=== PATIENT | male | born 1945 | race Caucasian/White ===

== ENCOUNTER → 2019-12-15 14:00 | Outpatient (CLI) | payer MEDICARE, MEDICAID, SELFPAY ==
[2019-12-15 13:57] VITALS: BMI 50.8
--- NOTE | 2019-12-15 14:00 | LES_PTH ---
PATIENT: BLANCA SHARMA I LOC: [facility] U#:[id number] AGE/SX: 80/M ROOM: RE12/15/[address]: Dr. Obdulio Mancuso MD : 1945 BED: DIS: SPEC #: [id number] RECD: 12/15/19 15:00 STATUS: EDELMIRARose ASIF #: [id number] ELIANE: 12/15/19 14:[address]: Obdulio Mancuso DEPT: SURGICAL PATHOLOGY RECD BY: Brynn Starr Tissues: Skin of inguinal region Procedures: Surgery Specimen Level IV HEADER OPERATION: Excision skin lesion left groin PRE-OP DIAGNOSIS: Fibroepithelial polyp TISSUE SUBMITTED: Skin lesion/tag left groin MICROSCOPIC DIAGNOSIS Skin lesion/tag left groin, excision: Fibroepithelial polyp (skin tag). SJ:harper 12/17/19 COMMENT Case has been reviewed in consultation with Dr. Seaman who concurs with the above diagnosis. IDC:AM MICROSCOPIC DESCRIPTION Slides are reviewed. GROSS DESCRIPTION Received is one container labeled with the patient's name and not further designated. The specimen consists of a pedunculated polypoid piece of rodriguez-white skin measuring 9.5 x 8 x 6 cm. The pedicle measures 1 cm in length and 1.5 cm in diameter. A focal area of ulceration is noted. Sections reveal edematous cut surfaces with focal yellowish area. Areas of hemorrhage, necrosis or cystic degeneration are not identified. Voice Systems Engineer sections are submitted in ten cassettes as follows: 1 - base of the lesion with inked margin, 2-6 - more sections. Sections are submitted after additional fixation. The inked margin is submitted in entirety. / SJ:rg 12/15/19 TC:5 CPT: 72317
== END ==
PROVIDERS: Visit Provider Surgery
DX: L91.8 Other hypertrophic disorders of the skin (principal)
CPT/HCPCS: 88305

== ENCOUNTER 2019-12-25 10:30 | Outpatient (RCR) | payer MEDICARE, MEDICAID, SELFPAY ==
[2019-12-15 13:57] VITALS: BMI 50.8
[2019-12-18 09:42] VITALS: BP 113/57; PULSE 79; RESP 24; TEMP 36.2; BMI 46.3
--- NOTE | 2019-12-18 12:21 | PCM.WC.HP ---
(1) Ulcer of right lower extremity with fat layer exposed Status: Acute Current Visit: Yes Code(s): L97.912 - Non-pressure chronic ulcer of unspecified part of right lower leg with fat layer exposed (2) Ulcer of left lower extremity with fat layer exposed Status: Acute Current Visit: Yes Code(s): L97.922 - Non-pressure chronic ulcer of unspecified part of left lower leg with fat layer exposed (3) Venous (peripheral) insufficiency Status: Acute Current Visit: Yes Code(s): I87.2 - Venous insufficiency (chronic) (peripheral) (4) Lymphedema Status: Acute Current Visit: Yes Code(s): I89.0 - Lymphedema, not elsewhere classified (5) Lower extremity edema Status: Acute Current Visit: Yes Code(s): R60.0 - Localized edema (6) Cellulitis of lower leg Status: Acute Current Visit: Yes Code(s): L03.119 - Cellulitis of unspecified part of limb (7) Obesity Status: Chronic Current Visit: No Code(s): E66.9 - Obesity, unspecified History of Present Illness Date of Service: 12/18/19 Chief Complaint: Superficial ulcers to bilateral lower legs History of Wound: This 74-year-old male with multiple comorbidities presents to the wound healing center today for superficial bilateral lower leg ulcers. Patient states he was seen at the wound healing center a few years ago for the exact same thing. He relates that he was a self-referral and called in for an appointment before being seen by anybody else for these issues. He has noticed some. He said he has compression stockings that he wears usually at home, but has recently been unable to wear them. He denies any feelings currently of nausea, vomiting, fever, chills. He also relates that he feels each lower leg has continued to look better since the day he originally made his appointment. Past Medical History Past Medical History: Chronic Problems (Last Reviewed 12/15/19 @ 13:54 by Dana Castillo) Pulmonary embolism (Chronic) Pulmonary artery hypertension (Chronic) Venous stasis dermatitis (Chronic) Obesity (Chronic) HTN (hypertension) (Chronic) CKD (chronic kidney disease) stage 3, GFR 30-59 ml/min (Chronic) RAAD (obstructive sleep apnea) (Chronic) Cor pulmonale, chronic (Chronic) Gout (Chronic) Surgical History: no surgical history Allergies/Adverse Reactions: Allergies No Known Allergies Allergy (Verified 12/15/19 13:55) Home Medications: Ambulatory Orders Medication Instructions Recorded Allopurinol 300 mg PO BID 09/11/14 Furosemide 40 mg PO BID 09/11/14 Lisinopril 20 mg PO DAILY 09/11/14 Warfarin [Coumadin] 7 mg PO DAILY 06/23/16 - Family History Paternal Stroke Maternal Heart Disease, - - The patient's mother had a history of hypertension. She in her 70s. The patient's father at age of 93, with a history of dementia. Offspring - - Recent pulmonary embolism Smoking Status: Never smoker Review of Systems Constitutional: Denies: Chills, Fever, Weight Change Cardiovascular: Denies: Chest Pain, Palpitations Respiratory: Denies: Cough, Shortness of Breath Gastrointestinal: Denies: Diarrhea, Nausea, Vomiting Skin: Reports: - - Bilateral lower leg ulcers - Physical Exam Vital Signs Temp Pulse Resp BP 97.1 F L 79 24 H 113/57 L 12/18/19 09:42 12/18/19 09:42 12/18/19 09:42 12/18/19 09:42 General: Alert, Oriented x3, Cooperative, No apparent distress Extremities: No cyanosis, Capillary Refill Less than 3 Seconds - To distal digits of each foot, No Calf Tenderness - Negative Wilfred and Rajput signs bilateral, Diminished Peripheral Pulses - DP pulses faintly palpable and PT pulses not easily palpable due to significant bilateral lower extremity edema., Edema - Significant bilateral lower extremity edema Skin: Ulcer/ Wound - Superficial ulcers with fat layer exposed to bilateral lower legs. Base of the ulcer sites noted to be a mixture of adherent slough, fibrin, biofilm, as well as some slight hyperkeratotic tissue. There is no probing to bone, no tracking, no undermining. No purulence, no malodor. There is some slight erythema to each lower leg. No significant increase in warmth. Some serous drainage appreciated that is moderate to heavy. Wound Measurements and Assessment WC - Nurse 1 - General Ulcer Measurement Start: 12/18/19 09:38 Freq: Status: Active Protocol: Activity Type Activity Date Activity User E-Sign Co-Sign Detail Recorded Client Recorded Date Recorded By Document 12/18/19 09:42 DL [id number] 12/18/19 10:03 DL 12/18/19 09:42 Wound Center Nurse 1 [Ulcer Assessment] #4 RLE med Cluster -Combined with other wound No -Current Size (cm) - Length 10.0 -Current Size (cm) - Width 11.0 -Current Size (cm) - Depth 0.1 -Total Square Cm 110.00 -Date of Last Picture (Recall this 12/18/19 field) -Photo Taken Yes -Epithelialization None Present -Tunneling No -Undermining/Tunneling No -Circular Undermining No -Classification - Thickness Full Thickness without Exposed Support Structure -Exudate Amt Large -Exudate Type Sanguineous -Wound Margin Indistinct, Non -Visible -Granulation Amt None Present (0 %) -Granulation Quality N/A,Red -Slough/Fibrin No -Necrosis Amt None Present (0 %) -Structure Exposed N/A -Texture (Uyen-wound Skin Appearance) Assessed, Localized Edema ,Scarring -Moisture (Uyen-wound Skin Appearance Weeping ) -Color (Uyen-wound Skin Appearance) Erythema, Hemosiderin Staining -Temperature (Uyen-wound Skin No Abnormality Appearance) (Pt Warm) -Tenderness on Palpation (Uyen-wound No Skin Appearance) -Ulcer Cleansing Rinsed/ Irrigated with Saline -Foul Odor after Cleansing No -Anesthetic Used 4% Lidocaine Solution #3 LLE lat -Combined with other wound No -Current Size (cm) - Length 11.0 -Current Size (cm) - Width 9.0 -Current Size (cm) - Depth 0.1 -Total Square Cm 99.00 -Date of Last Picture (Recall this 12/18/19 field) -Photo Taken Yes -Epithelialization None Present -Tunneling No -Undermining/Tunneling No -Circular Undermining No -Classification - Thickness Full Thickness without Exposed Support Structure -Exudate Amt Large -Exudate Type Sanguineous -Wound Margin Indistinct, Non -Visible -Granulation Amt None Present (0 %) -Granulation Quality N/A -Slough/Fibrin Yes -Necrosis Amt Large (67-100%) -Necrotic Tissue Type Adherent Slough -Structure Exposed N/A -Texture (Uyen-wound Skin Appearance) Assessed, Localized Edema ,Scarring -Moisture (Uyen-wound Skin Appearance Assessed, ) Weeping -Color (Uyen-wound Skin Appearance) Assessed, Erythema, Hemosiderin Staining -Temperature (Uyen-wound Skin No Abnormality Appearance) (Pt Warm) -Tenderness on Palpation (Uyen-wound No Skin Appearance) -Ulcer Cleansing Rinsed/ Irrigated with Saline -Foul Odor after Cleansing No -Anesthetic Used 4% Lidocaine Solution WC - Nurse 2 - General Ulcer CM Notes Start: 12/18/19 09:38 Freq: Status: Active Protocol: Activity Type Activity Date Activity User E-Sign Co-Sign Detail Recorded Client Recorded Date Recorded By Document 12/18/19 10:40 DV [id number] 12/18/19 10:46 DV 12/18/19 10:40 Wound Center Nurse 2 [Procedure/Treatment] #4 RLE med Cluster -Time 10:40 -Correct Patient Yes -Correct Side, Site, Position Yes -Correct Procedure Yes -Procedure Performed Yes -Type of Procedure Debridement -Clinical Debridement Subcutaneous -Post Debridement Size (cm) - Length 10.1 -Post Debridement Size (cm) - Width 11.1 -Post Debridement Size (cm) - Depth 0.1 -Total Square Cm 112.11 -Wound/Ulcer Outcome Not Healed -Ulcer Cleansing Rinsed/ Irrigated with Saline -Foul Odor after Cleansing No -Bioengineered Tissue No -Bleeding Controlled with Pressure -Offloading No -Treatment Response Procedure Tolerated Well #3 LLE lat -Time 10:41 -Correct Patient Yes -Correct Side, Site, Position Yes -Correct Procedure Yes -Procedure Performed Yes -Type of Procedure Debridement -Clinical Debridement Subcutaneous -Post Debridement Size (cm) - Length 11.1 -Post Debridement Size (cm) - Width 9.1 -Post Debridement Size (cm) - Depth 0.1 -Total Square Cm 101.01 -Wound/Ulcer Outcome Not Healed -Ulcer Cleansing Rinsed/ Irrigated with Saline -Foul Odor after Cleansing No -Bioengineered Tissue No -Bleeding Controlled with Pressure -Offloading No -Treatment Response Procedure Tolerated Well [See Physician Procedure note for Specifics] Pain Scale: 0-10 Numeric [Pain] -Is Patient Pain Free? Yes Musculoskeletal: Tenderness - Very minor tenderness with manipulation of ulcer sites Neurological: Sensory exam intact to light touch and pain Psych/Mental Status: Normal Affect, Appropriate Debridement Note Post-Debridement Measurements/Treatment SIMON - Nurse 2 - General Ulcer CM Notes Start: 12/18/19 09:38 Freq: Status: Active Protocol: Activity Type Activity Date Activity User E-Sign Co-Sign Detail Recorded Client Recorded Date Recorded By Document 12/18/19 10:40 DV [id number] 12/18/19 10:46 DV 12/18/19 10:40 Wound Center Nurse 2 #4 RLE med Cluster -Time 10:40 -Correct Patient Yes -Correct Side, Site, Position Yes -Correct Procedure Yes -Procedure Performed Yes -Type of Procedure Debridement -Clinical Debridement Subcutaneous -Post Debridement Size (cm) - Length 10.1 -Post Debridement Size (cm) - Width 11.1 -Post Debridement Size (cm) - Depth 0.1 -Total Square Cm 112.11 -Wound/Ulcer Outcome Not Healed -Ulcer Cleansing Rinsed/ Irrigated with Saline -Foul Odor after Cleansing No -Bioengineered Tissue No -Bleeding Controlled with Pressure -Offloading No -Treatment Response Procedure Tolerated Well #3 LLE lat -Time 10:41 -Correct Patient Yes -Correct Side, Site, Position Yes -Correct Procedure Yes -Procedure Performed Yes -Type of Procedure Debridement -Clinical Debridement Subcutaneous -Post Debridement Size (cm) - Length 11.1 -Post Debridement Size (cm) - Width 9.1 -Post Debridement Size (cm) - Depth 0.1 -Total Square Cm 101.01 -Wound/Ulcer Outcome Not Healed -Ulcer Cleansing Rinsed/ Irrigated with Saline -Foul Odor after Cleansing No -Bioengineered Tissue No -Bleeding Controlled with Pressure -Offloading No -Treatment Response Procedure Tolerated Well Pain Scale: 0-10 Numeric Is Patient Pain Free? Yes Wound debrided: Right lower leg Laterality: Right Type of Debridement: Selective debridement Anesthesia Used: 4% Lidocaine Solution Depth: in the subcutaneous layer Percentage of wound debrided: 100 Instrument Used: 3mm curette Tissue Removed: Adherent slough, fibrin, biofilm Severity: Fat Layer Exposed Amount of bleeding with debridement: Mild Bleeding Controlled with: Pressure Patient tolerated procedure well - Additional Wound Wound debrided: Left lower leg Laterality: Left Type of Debridement: Selective debridement Anesthesia Used: 4% Lidocaine Solution Depth: in the subcutaneous layer Percentage of wound debrided: 100 Instrument Used: 3mm curette Tissue Removed: Adherent slough, fibrin, biofilm Severity: Fat Layer Exposed Amount of bleeding with debridement: Mild Bleeding Controlled with: Pressure Patient tolerated procedure: Patient tolerated procedure well Assessment/Plan Active Problems (Last Reviewed 12/15/19 @ 13:54 by Dana S Castillo) Ulcer of right lower extremity with fat layer exposed (Acute) Ulcer of left lower extremity with fat layer exposed (Acute) Venous (peripheral) insufficiency (Acute) Lymphedema (Acute) Lower extremity edema (Acute) Cellulitis of lower leg (Acute) Assessment: As noted above Plan: Initial patient examination and evaluation was performed in detail. Next, a mild selective debridement was performed to each ulcer site as noted in the clinical panel. Next each area was carefully cleansed with normal sterile saline and cultures were taken and sent for aerobic, anaerobic, and MRSA PCR evaluation. Patient was given a 10-day course of cephalexin. Next, each ulcer site was then dressed with Aquacel Ag to the base followed by a gauze dressing and a compressive dressing with Norbert bandage. Patient was instructed to keep pressure off of each of the ulcer sites at all times while seated or lying down. He is instructed to keep his legs elevated at all times. He is instructed to not sit with his legs in the dependent position. Patient relates that he understands this. LEAS and venous doppler exams were ordered for this patient and we will continue to monitor for results from these. Patient relates he is in the process of obtaining home health, but relates that his will help him with dressing changes until that happens. He again is to have his dressings changed as stated above on a daily basis. The importance of a high-protein diet was stressed with the patient to help optimize ulcer healing potential. The patient was educated on all signs and symptoms of local and systemic infection, and he was instructed to go to the emergency room immediately should he notice any of these. Otherwise, patient is to follow back up in clinic in 1 week to check on progress, or sooner if needed before then.
[2019-12-18 17:57] LABS: M R Staph aureus DNA By PCR Negative (Negative); Staph aureus DNA By PCR POSITIVE (Negative)
[2019-12-18 17:58] LABS: Probe Check PASS; Specimen Processing Control PASS
--- NOTE | 2019-12-22 08:57 | WC ---
spoke with patient's , Tete, in regards to dressing husbands lower legs. This nurse suggested that she come in with her on his next visit to the wound center which is December 25 at 1030 where all of her questions can be answered and she can be shown how to take care of his wounds by dressing them properly.
[2019-12-25 10:34] VITALS: BP 139/56; PULSE 94; RESP 22; TEMP 36.3; BMI 46.3
--- NOTE | 2019-12-25 11:18 | PCM.WC.PN ---
(1) Ulcer of right lower extremity with fat layer exposed Status: Acute Current Visit: Yes Code(s): L97.912 - Non-pressure chronic ulcer of unspecified part of right lower leg with fat layer exposed (2) Ulcer of left lower extremity with fat layer exposed Status: Acute Current Visit: Yes Code(s): L97.922 - Non-pressure chronic ulcer of unspecified part of left lower leg with fat layer exposed (3) Venous (peripheral) insufficiency Status: Acute Current Visit: Yes Code(s): I87.2 - Venous insufficiency (chronic) (peripheral) (4) Lymphedema Status: Acute Current Visit: Yes Code(s): I89.0 - Lymphedema, not elsewhere classified (5) Lower extremity edema Status: Acute Current Visit: Yes Code(s): R60.0 - Localized edema (6) Cellulitis of lower leg Status: Acute Current Visit: Yes Code(s): L03.119 - Cellulitis of unspecified part of limb (7) Obesity Status: Chronic Current Visit: No Code(s): E66.9 - Obesity, unspecified Type of Wound Date of Service: 12/25/19 Chief Complaint: Superficial ulcers to bilateral lower legs History of Wound: This 74-year-old male with multiple comorbidities presents to the wound healing center today for superficial bilateral lower leg ulcers. Patient states he was seen at the wound healing center a few years ago for the exact same thing. He relates that he was a self-referral and called in for an appointment before being seen by anybody else for these issues. He has noticed some. He said he has compression stockings that he wears usually at home, but has recently been unable to wear them. He denies any feelings currently of nausea, vomiting, fever, chills. He also relates that he feels each lower leg has continued to look better since the day he originally made his appointment. Progress of Wound: Ulcer sites remain stable this week. Patient denies any feelings of nausea, vomiting, fever, chills. - Physical Exam Vital Signs Temp Pulse Resp BP 97.4 F L 94 22 H 139/56 H 12/25/19 10:34 12/25/19 10:34 12/25/19 10:34 12/25/19 10:34 General: Alert, Oriented x3, Cooperative, No apparent distress Extremities: No cyanosis, Capillary Refill Less than 3 Seconds - To distal digits of each foot, No Calf Tenderness - Negative Wilfred and Rajput signs bilateral, Diminished Peripheral Pulses - DP pulses faintly palpable and PT pulses not easily palpable due to significant bilateral lower extremity edema, Edema - Significant bilateral lower extremity edema Skin: Ulcer/ Wound - Superficial ulcers with fat layer exposed to bilateral lower legs. Base of the ulcer sites noted to be a mixture of adherent slough, fibrin, biofilm, as well as some slight hyperkeratotic tissue. There is no probing to bone, no tracking, no undermining. No purulence, no malodor. There is some continued erythema to each lower leg. No significant increase in warmth. Moderate serous drainage appreciated. Wound Measurements and Assessment WC - Nurse 1 - General Ulcer Measurement Start: 12/18/19 09:38 Freq: Status: Active Protocol: Activity Type Activity Date Activity User E-Sign Co-Sign Detail Recorded Client Recorded Date Recorded By Document 12/25/19 10:34 DL [id number] 12/25/19 10:47 DL 12/25/19 10:34 Wound Center Nurse 1 [Ulcer Assessment] #4 RLE med Cluster -Current Size (cm) - Length 11 -Current Size (cm) - Width 28 -Current Size (cm) - Depth 0.1 -Total Square Cm 308 -Photo Taken No -Exudate Amt Large -Exudate Type Serosanguineous -Wound Margin Indistinct, Non -Visible -Granulation Amt Large (67-100%) -Granulation Quality Red -Necrosis Amt None Present (0 %) -Structure Exposed N/A -Texture (Uyen-wound Skin Appearance) Excoriation, Localized Edema -Moisture (Uyen-wound Skin Appearance Weeping ) -Color (Uyen-wound Skin Appearance) Hemosiderin Staining -Temperature (Uyen-wound Skin No Abnormality Appearance) (Pt Warm) -Tenderness on Palpation (Uyen-wound No Skin Appearance) -Ulcer Cleansing Wound Cleanser -Foul Odor after Cleansing No -Anesthetic Used 4% Lidocaine Solution #3 LLE lat -Current Size (cm) - Length 27 -Current Size (cm) - Width 43.1 -Current Size (cm) - Depth 0.1 -Total Square Cm 1163.7 -Photo Taken No -Exudate Amt Large -Exudate Type Serosanguineous -Wound Margin Indistinct, Non -Visible -Granulation Amt Large (67-100%) -Granulation Quality Red -Necrosis Amt None Present (0 %) -Structure Exposed N/A -Texture (Uyen-wound Skin Appearance) Excoriation, Localized Edema -Moisture (Uyen-wound Skin Appearance Weeping ) -Color (Uyen-wound Skin Appearance) Hemosiderin Staining -Temperature (Uyen-wound Skin No Abnormality Appearance) (Pt Warm) -Tenderness on Palpation (Uyen-wound No Skin Appearance) -Ulcer Cleansing Wound Cleanser -Foul Odor after Cleansing No -Anesthetic Used 4% Lidocaine Solution [Edema Assessment] -Right Calf (cm) 68 -Right Ankle (cm) 39 -Left Calf (cm) 63 -Left Ankle (cm) 38.8 WC - Nurse 2 - General Ulcer CM Notes Start: 12/18/19 09:38 Freq: Status: Active Protocol: Activity Type Activity Date Activity User E-Sign Co-Sign Detail Recorded Client Recorded Date Recorded By Document 12/25/19 11:10 DL [id number] 12/25/19 11:11 DL 12/25/19 11:10 Wound Center Nurse 2 [Procedure/Treatment] #4 RLE med Cluster -Time 11:10 -Correct Patient Yes -Correct Side, Site, Position Yes -Correct Procedure Yes -Procedure Performed Yes -Type of Procedure Debridement -Clinical Debridement Selective -Post Debridement Size (cm) - Length 11 -Post Debridement Size (cm) - Width 28 -Post Debridement Size (cm) - Depth 0.1 -Total Square Cm 308 -Wound/Ulcer Outcome Not Healed -Ulcer Cleansing Rinsed/ Irrigated with Saline -Foul Odor after Cleansing No -Bioengineered Tissue No -Bleeding Controlled with Pressure -Offloading No -Treatment Response Procedure Tolerated Well #3 LLE lat -Time 11:10 -Correct Patient Yes -Correct Side, Site, Position Yes -Correct Procedure Yes -Procedure Performed Yes -Type of Procedure Debridement -Clinical Debridement Selective -Post Debridement Size (cm) - Length 27 -Post Debridement Size (cm) - Width 43.1 -Post Debridement Size (cm) - Depth 0.1 -Total Square Cm 1163.7 -Wound/Ulcer Outcome Not Healed -Ulcer Cleansing Rinsed/ Irrigated with Saline -Foul Odor after Cleansing No -Bioengineered Tissue No -Bleeding Controlled with Pressure -Offloading No -Treatment Response Procedure Tolerated Well [See Physician Procedure note for Specifics] Pain Scale: 0-10 Numeric [Pain] -Is Patient Pain Free? Yes Musculoskeletal: Tenderness - Very minor tenderness with manipulation of ulcer sites Neurological: Sensory exam intact to light touch and pain Psych/Mental Status: Normal Affect, Appropriate Debridement Note Post-Debridement Measurements/Treatment WC - Nurse 2 - General Ulcer CM Notes Start: 12/18/19 09:38 Freq: Status: Active Protocol: Activity Type Activity Date Activity User E-Sign Co-Sign Detail Recorded Client Recorded Date Recorded By Document 12/18/19 10:40 DV [id number] 12/18/19 10:46 DV Document 12/25/19 11:10 DL [id number] 12/25/19 11:11 DL 12/18/19 12/25/19 10:40 11:10 Wound Center Nurse 2 #4 RLE med Cluster -Time 10:40 11:10 -Correct Patient Yes Yes -Correct Side, Site, Position Yes Yes -Correct Procedure Yes Yes -Procedure Performed Yes Yes -Type of Procedure Debridement Debridement -Clinical Debridement Subcutaneous Selective -Post Debridement Size (cm) - Length 10.1 11 -Post Debridement Size (cm) - Width 11.1 28 -Post Debridement Size (cm) - Depth 0.1 0.1 -Total Square Cm 112.11 308 -Wound/Ulcer Outcome Not Healed Not Healed -Ulcer Cleansing Rinsed/ Rinsed/ Irrigated with Irrigated with Saline Saline -Foul Odor after Cleansing No No -Bioengineered Tissue No No -Bleeding Controlled with Pressure Pressure -Offloading No No -Treatment Response Procedure Procedure Tolerated Well Tolerated Well #3 LLE lat -Time 10:41 11:10 -Correct Patient Yes Yes -Correct Side, Site, Position Yes Yes -Correct Procedure Yes Yes -Procedure Performed Yes Yes -Type of Procedure Debridement Debridement -Clinical Debridement Subcutaneous Selective -Post Debridement Size (cm) - Length 11.1 27 -Post Debridement Size (cm) - Width 9.1 43.1 -Post Debridement Size (cm) - Depth 0.1 0.1 -Total Square Cm 101.01 1163.7 -Wound/Ulcer Outcome Not Healed Not Healed -Ulcer Cleansing Rinsed/ Rinsed/ Irrigated with Irrigated with Saline Saline -Foul Odor after Cleansing No No -Bioengineered Tissue No No -Bleeding Controlled with Pressure Pressure -Offloading No No -Treatment Response Procedure Procedure Tolerated Well Tolerated Well Pain Scale: 0-10 Numeric Is Patient Pain Free? Yes Yes Wound debrided: Right lower leg Laterality: Right Type of Debridement: Selective debridement Anesthesia Used: 4% Lidocaine Solution Depth: in the subcutaneous layer Percentage of wound debrided: 100 Instrument Used: 5mm curette Tissue Removed: Adherent slough, fibrin, biofilm Severity: Fat Layer Exposed Amount of bleeding with debridement: Mild Bleeding Controlled with: Pressure Patient tolerated procedure well - Additional Wound Wound debrided: Left lower leg Laterality: Left Type of Debridement: Excisional debridement Anesthesia Used: 4% Lidocaine Solution Depth: in the subcutaneous layer Percentage of wound debrided: 100 Instrument Used: 5mm curette Tissue Removed: Adherent slough, fibrin, biofilm Severity: Fat Layer Exposed Amount of bleeding with debridement: Mild Bleeding Controlled with: Pressure Patient tolerated procedure: Patient tolerated procedure well Assessment/Plan Active Problems (Last Reviewed 12/15/19 @ 13:54 by Dana Castillo) Ulcer of right lower extremity with fat layer exposed (Acute) Ulcer of left lower extremity with fat layer exposed (Acute) Venous (peripheral) insufficiency (Acute) Lymphedema (Acute) Lower extremity edema (Acute) Cellulitis of lower leg (Acute) Assessment: As noted above Plan: Patient carefully examined and evaluated today. Next, a mild selective debridement was performed to each ulcer site as noted in the clinical panel again today. Culture results were reviewed with the patient. I called the patient's primary care physician's office and his most recent blood work from August showed that the patient had a GFR of 54. I then discussed the culture results along with the patient's GFR with infectious disease to confirm dosing recommendations. The patient was started on a 10-day course of Levaquin where he will take 500 mg on day 1 and then 250 mg daily until complete. Patient was also prescribed a 10-day course of Flagyl that he will take 3 times a day. Next, each ulcer site was then dressed with Aquacel Ag to the base followed by a gauze dressing and a compressive dressing with Norbert bandage. Patient was instructed to keep pressure off of each of the ulcer sites at all times while seated or lying down. He is instructed to keep his legs elevated at all times. He is instructed to not sit with his legs in the dependent position. Patient relates that he understands this. LEAS and venous doppler exams were ordered for this patient and we will continue to monitor for results from these once they are completed. We will continue to apply for home health for this patient. In the meantime the patient's can help with dressing changes. He again is to have his dressings changed as stated above on a daily basis. The importance of a high-protein diet was stressed with the patient to help optimize ulcer healing potential. The patient was educated on all signs and symptoms of local and systemic infection, and he was instructed to go to the emergency room immediately should he notice any of these. Otherwise, patient is to follow back up in clinic in 1 week to check on progress, or sooner if needed before then.
== END 2019-12-27 23:59 ==
LOC: WC 10:30
PROVIDERS: Referring Provider Podiatrist; Visit Provider Podiatrist
DX: I87.2 Venous insufficiency (chronic) (peripheral) (principal); L97.812 Non-pressure chronic ulcer of other part of right lower leg with fat layer exposed; L97.822 Non-pressure chronic ulcer of other part of left lower leg with fat layer exposed; R60.0 Localized edema; I89.0 Lymphedema, not elsewhere classified; E66.9 Obesity, unspecified; I12.9 Hypertensive chronic kidney disease with stage 1 through stage 4 chronic kidney disease, or unspecified chronic kidney disease; G47.33 Obstructive sleep apnea (adult) (pediatric); N18.3 Chronic kidney disease, stage 3 (moderate); I27.21 Secondary pulmonary arterial hypertension; M10.9 Gout, unspecified; Z79.01 Long term (current) use of anticoagulants; Z86.711 Personal history of pulmonary embolism; Z68.42 Body mass index [BMI] 45.0-49.9, adult; Z71.3 Dietary counseling and surveillance
CPT/HCPCS: 87070; 87075; 87077; 87186; 87205; 87640; 97597; 97598; 99213; G0463

== ENCOUNTER 2020-01-15 10:30 | Outpatient (RCR) | payer MEDICARE, MEDICAID, SELFPAY ==
[2019-12-28 01:10] VITALS: BP 139/56; PULSE 94; RESP 22; TEMP 36.3
[2020-01-01 11:05] VITALS: BP 155/85; PULSE 75; RESP 18; TEMP 36.6; BMI 46.3
--- NOTE | 2020-01-01 11:32 | PN.PCM_ITS ---
(1) Ulcer of right lower extremity with fat layer exposed Status: Acute Current Visit: No Code(s): L97.912 - Non-pressure chronic ulcer of unspecified part of right lower leg with fat layer exposed (2) Ulcer of left lower extremity with fat layer exposed Status: Acute Current Visit: No Code(s): L97.922 - Non-pressure chronic ulcer of unspecified part of left lower leg with fat layer exposed (3) Venous (peripheral) insufficiency Status: Acute Current Visit: No Code(s): I87.2 - Venous insufficiency ( chronic) (peripheral) (4) Lymphedema Status: Acute Current Visit: No Code(s): I89.0 - Lymphedema, not elsewhere classified (5) Lower extremity edema Status: Acute Current Visit: No Code(s): R60.0 - Localized edema (6) Obesity Status: Chronic Current Visit: No Code(s): E66.9 - Obesity, unspecified Type of Wound Date of Service: 01/01/20 Chief Complaint: Superficial ulcers to bilateral lower legs History of Wound: This 74-year-old male with multiple comorbidities presents to the wound healing center today for superficial bilateral lower leg ulcers. Patient states he was seen at the wound healing center a few years ago for the exact same thing. He relates that he was a self-referral and called in for an appointment before being seen by anybody else for these issues. He has noticed some. He said he has compression stockings that he wears usually at home, but has recently been unable to wear them. He denies any feelings currently of nausea, vomiting, fever, chills. He also relates that he feels each lower leg has continued to look better since the day he originally made his appointment. Progress of Wound: Bilateral lower legs show good improvement over the last week. Patient denies any feelings of nausea, vomiting, fever, chills. - Physical Exam Vital Signs Temp Pulse Resp BP 97.8 F 75 18 155/85 H 01/01/20 11:05 01/01/20 11:05 01/01/20 11:01/01/20 11:05 General: Alert, Oriented x3, Cooperative, No apparent distress Extremities: No cyanosis, Capillary Refill Less than 3 Seconds - To distal digits of each foot, No Calf Tenderness - Negative Wilfred and Rajput signs bilateral, Diminished Peripheral Pulses - DP pulses faintly palpable and PT pulses not easily palpable due to significant bilateral lower extremity edema, Edema - Significant bilateral lower extremity edema Skin: Ulcer/ Wound - Superficial ulcers with fat layer exposed to bilateral lower legs. Significant improvement noted over the course of the last week. Base of the ulcer sites noted to be a mixture of adherent slough, fibrin, biofilm, as well as some slight hyperkeratotic tissue. There is no probing to bone, no tracking, no undermining. No purulence, no malodor. There is improved erythema to bilateral lower legs. No significant increase in warmth. Moderate serous drainage appreciated. Wound Measurements and Assessment WC - Nurse 1 - General Ulcer Measurement Start: 01/01/20 11:05 Freq: Status: Active Protocol: Activity Type Activity Date Activity User E-Sign Co-Sign Detail Recorded Client Recorded Date Recorded By Document 01/01/20 11:05 JF [id number] 01/01/20 11:12 JAYESH 01/01/20 11:05 Wound Center Nurse 1 [Ulcer Assessment] #4 RLE med Cluster -Combined with other wound No -Current Size (cm) - Length 0.1 -Current Size (cm) - Width 0.1 -Current Size (cm) - Depth 0.1 -Total Square Cm 0.01 -Photo Taken No -Epithelialization Large 67-100% -Tunneling No -Undermining/Tunneling No -Circular Undermining No -Exudate Amt Medium -Exudate Type Yellow/Green -Wound Margin Flat & Intact -Granulation Amt None Present (0 %) -Slough/Fibrin Yes -Necrosis Amt Medium (34-66%) -Necrotic Tissue Type Adherent Slough -Structure Exposed N/A -Texture (Uyen-wound Skin Appearance) Assessed, Localized Edema -Moisture (Uyen-wound Skin Appearance Assessed, ) Weeping,Dry/ Scaly -Color (Uyen-wound Skin Appearance) Assessed, Hemosiderin Staining -Temperature (Uyen-wound Skin No Abnormality Appearance) (Pt Warm) -Tenderness on Palpation (Uyen-wound No Skin Appearance) -Ulcer Cleansing Wound Cleanser -Foul Odor after Cleansing No #3 LLE lat -Combined with other wound No -Current Size (cm) - Length 0.1 -Current Size (cm) - Width 0.1 -Current Size (cm) - Depth 0.1 -Total Square Cm 0.01 -Photo Taken No -Epithelialization Small 1-33% -Tunneling No -Undermining/Tunneling No -Circular Undermining No -Exudate Amt Large -Exudate Type Yellow/Green -Wound Margin Flat & Intact -Granulation Amt None Present (0 %) -Slough/Fibrin Yes -Necrosis Amt Medium (34-66%) -Necrotic Tissue Type Adherent Slough -Structure Exposed N/A -Texture (Uyen-wound Skin Appearance) Assessed, Localized Edema -Moisture (Uyen-wound Skin Appearance Assessed,Dry/ ) Scaly -Color (Uyen-wound Skin Appearance) Assessed, Hemosiderin Staining -Temperature (Uyen-wound Skin No Abnormality Appearance) (Pt Warm) -Tenderness on Palpation (Uyen-wound No Skin Appearance) -Ulcer Cleansing Rinsed/ Irrigated with Saline -Foul Odor after Cleansing No -Anesthetic Used 4% Lidocaine Solution [Edema Assessment] -Lower Limb Edema Present Yes -Right Calf (cm) 70.8 -Right Ankle (cm) 37 -Left Calf (cm) 66.5 -Left Ankle (cm) 38.3 WC - Nurse 2 - General Ulcer CM Notes Start: 01/01/20 11:05 Freq: Status: Active Protocol: Activity Type Activity Date Activity User E-Sign Co-Sign Detail Recorded Client Recorded Date Recorded By Document 01/01/20 11:21 JF [id number] 01/01/20 11:28 01/01/20 11:21 Wound Center Nurse 2 [Procedure/Treatment] #4 RLE med Cluster -Time 11:23 -Correct Patient Yes -Correct Side, Site, Position Yes -Correct Procedure Yes -Procedure Performed Yes -Type of Procedure Debridement -Clinical Debridement Selective -Post Debridement Size (cm) - Length 0.1 -Post Debridement Size (cm) - Width 0.1 -Post Debridement Size (cm) - Depth 0.1 -Total Square Cm 0.01 -Wound/Ulcer Outcome Not Healed -Ulcer Cleansing Rinsed/ Irrigated with Saline -Foul Odor after Cleansing No -Bioengineered Tissue No -Bleeding Controlled with Pressure -Offloading No -Treatment Response Procedure Tolerated Well #3 LLE lat -Time 11:27 -Correct Patient Yes -Correct Side, Site, Position Yes -Correct Procedure Yes -Procedure Performed Yes -Type of Procedure Debridement -Clinical Debridement Selective -Post Debridement Size (cm) - Length 0.1 -Post Debridement Size (cm) - Width 0.1 -Post Debridement Size (cm) - Depth 0.1 -Total Square Cm 0.01 -Wound/Ulcer Outcome Not Healed -Ulcer Cleansing Rinsed/ Irrigated with Saline -Foul Odor after Cleansing No -Bioengineered Tissue No -Bleeding Controlled with Pressure -Offloading No -Treatment Response Procedure Tolerated Well [See Physician Procedure note for Specifics] Pain Scale: 0-10 Numeric [Pain] -Is Patient Pain Free? Yes Musculoskeletal: Tenderness - Very minor tenderness with manipulation of ulcer sites Neurological: Sensory exam intact to light touch and pain Psych/Mental Status: Normal Affect, Appropriate Debridement Note Post-Debridement Measurements/Treatment WC - Nurse 2 - General Ulcer CM Notes Start: 01/01/20 11:05 Freq: Status: Active Protocol: Activity Type Activity Date Activity User E-Sign Co-Sign Detail Recorded Client Recorded Date Recorded By Document 01/01/20 11:21 JF [id number] 01/01/20 11:28 JAYESH 01/01/20 11:21 Wound Center Nurse 2 #4 RLE med Cluster -Time 11:23 -Correct Patient Yes -Correct Side, Site, Position Yes -Correct Procedure Yes -Procedure Performed Yes -Type of Procedure Debridement -Clinical Debridement Selective -Post Debridement Size (cm) - Length 0.1 -Post Debridement Size (cm) - Width 0.1 -Post Debridement Size (cm) - Depth 0.1 -Total Square Cm 0.01 -Wound/Ulcer Outcome Not Healed -Ulcer Cleansing Rinsed/ Irrigated with Saline -Foul Odor after Cleansing No -Bioengineered Tissue No -Bleeding Controlled with Pressure -Offloading No -Treatment Response Procedure Tolerated Well #3 LLE lat -Time 11:27 -Correct Patient Yes -Correct Side, Site, Position Yes -Correct Procedure Yes -Procedure Performed Yes -Type of Procedure Debridement -Clinical Debridement Selective -Post Debridement Size (cm) - Length 0.1 -Post Debridement Size (cm) - Width 0.1 -Post Debridement Size (cm) - Depth 0.1 -Total Square Cm 0.01 -Wound/Ulcer Outcome Not Healed -Ulcer Cleansing Rinsed/ Irrigated with Saline -Foul Odor after Cleansing No -Bioengineered Tissue No -Bleeding Controlled with Pressure -Offloading No -Treatment Response Procedure Tolerated Well Pain Scale: 0-10 Numeric Is Patient Pain Free? Yes Wound debrided: Right lower leg Laterality: Right Type of Debridement: Selective debridement Anesthesia Used: 4% Lidocaine Solution Depth: in the subcutaneous layer Percentage of wound debrided: 100 Instrument Used: 3mm curette Tissue Removed: Slough and fibrin Severity: Fat Layer Exposed Amount of bleeding with debridement: Mild Bleeding Controlled with: Pressure Patient tolerated procedure well - Additional Wound Wound debrided: Left lower leg Laterality: Left Type of Debridement: Selective debridement Anesthesia Used: 4% Lidocaine Solution Depth: in the subcutaneous layer Percentage of wound debrided: 100 Instrument Used: 3mm curette Tissue Removed: Slough and fibrin Severity: Fat Layer Exposed Amount of bleeding with debridement: Mild Bleeding Controlled with: Pressure Patient tolerated procedure: Patient tolerated procedure well Assessment/Plan Assessment: As noted above Plan: Patient carefully examined and evaluated today. Next, a mild selective debridement was performed to each ulcer site as noted in the clinical panel again today. Patient is to continue with antibiotics until prescriptions are complete. Patient has been doing well with these over the last week with no issues. Next, each ulcer site was then dressed with Aquacel Ag to the base followed by a gauze dressing and a compressive dressing with Norbert bandage. Patient is able to have a PT/OT evaluation. Patient also given prescription for Lac-Hydrin to apply to bilateral lower legs daily. Patient was instructed to keep pressure off of each of the ulcer sites at all times while seated or lying down. He is instructed to keep his legs elevated at all times. He is instructed to not sit with his legs in the dependent position. Patient relates that he understands this. LEAS and venous doppler exams were ordered for this patient and we will continue to monitor for results from these once they are completed. He again is to have his dressings changed as stated above on a daily basis. The importance of a high-protein diet was stressed with the patient to help optimize ulcer healing potential. The patient was educated on all signs and symptoms of local and systemic infection, and he was instructed to go to the emergency room immediately should he notice any of these. Otherwise, patient is to follow back up in clinic in 1 week to check on progress, or sooner if needed before then.
--- NOTE | 2020-01-08 08:50 | VDLE_ITS ---
Reason For Study: Lymphedema RIGHT LEFT CFV is compressible, spontaneous, phasic, CFV is compressible, spontaneous, phasic, competent and demonstrates normal competent, and demonstrates normal augmentation. augmentation. FV is compressible, spontaneous, phasic, FV is compressible, spontaneous, phasic, competent and demonstrates normal competent and demonstrates normal augmentation. augmentation. POP V is compressible, spontaneous, phasic, POP V is compressible, spontaneous, phasic, competent and demonstrates normal competent and demonstrates normal augmentation. augmentation. T/P Trunk is compressible. T/P Trunk is compressible. Calf veins not visualized due to pt body Calf veins not visualized due to pt body habitus and lymphedema. habitus and lymphedema. SFJ is competent and measures 1.12 x 1.09 cm. SFJ is competent and measures 0.70 x 0.83 cm. GSV proximal thigh measures 0.98 x 1.03 cm. GSV proximal thigh measures 0.83 x 0.82 cm. GSV at knee measures 0.73 x 0.71 cm. GSV above knee is INCOMPETENT for greater GSV is competent throughout. than 0.5 seconds. SSV proximal calf is competent and measures GSV at knee measures 0.64 x 0.70 cm. 0.21 x 0.24 cm. GSV below knee is competent. Procedure SSV proximal calf is competent and measures Exam performed in department. 0.38 x 0.41 cm. A preliminary report was called and/or faxed to . Interpretation Summary Deep veins of the lower extremities are bilaterally patent and compressible segmentally. There is no evidence of deep vein thrombosis on either side. Valvular competence appears intact within the proximal deep venous systems bilaterally. The great saphenous veins appear bilaterally patent and compressible segmentally. Sapheno-femoral junctions are bilaterally competent . The right great saphenous vein appears segmentally competent. The left great saphenous vein appears incompetent above the knee. The left great saphenous vein appears competent below the knee. Small saphenous veins are patent and competent bilaterally. The deep veins of the calf were not visualized bilaterally due to the patient's body habitus and lymphedema. Ordering Physician: Harjinder Wesley Referring Physician: Harjinder Wesley Performed By: Nataly Chowdhury RVT
--- NOTE | 2020-01-08 08:50 | ART_ITS ---
Reason For Study: PVD Procedure A bilateral lower extremity continuous wave Doppler with analog waveform analysis,segmental pressures,and ankle brachial indexes without exercise. Left Segmental Pressures Left brachial= 106mmHg. Left posterior tibial artery = 154mmHg. Left dorsalis pedis artery = 156mmHg. Left digit = 83 mmHg. The left dorsalis pedis waveforms are triphasic. The left posterior tibial artery waveforms are triphasic. Right Segmental Pressures Right brachial= 108mmHg. Right posterior tibial artery = 146mmHg. Right dorsalis pedis artery = 158mmHg. Right digit = 99 mmHg. The right dorsalis pedis waveforms are triphasic. The right posterior tibial artery waveforms are triphasic. Indices The right ankle brachial index by the dorsalis pedis is 1.46. The right ankle brachial index by the posterior tibial artery is 1.35. The right digital-brachial index is 0.92. The left ankle brachial index by the dorsalis pedis is 1.44. The left ankle brachial index by the posterior tibial artery is 1.43. The left digital-brachial index is 0.83. Interpretation Summary Triphasic Doppler waveforms are noted at ankle level bilaterally. Pulse-volume recordings appear satisfactory at all levels bilaterally. Resting ankle-brachial indices are supra-normal bilaterally. Digital-brachial indices are normal bilaterally. There is evidence of arterial calcification at ankle level bilaterally. There is no evidence of significant arterial occlusive disease in the lower extremities bilaterally. Ordering Physician: Harjinder Wesley Performed By: Nataly Chowdhury RVT
[2020-01-08 10:16] VITALS: PULSE 74; RESP 20; TEMP 36.1; BMI 46.3
--- NOTE | 2020-01-08 10:46 | PN.PCM_ITS ---
(1) Ulcer of right lower extremity with fat layer exposed Status: Acute Current Visit: No Code(s): L97.912 - Non-pressure chronic ulcer of unspecified part of right lower leg with fat layer exposed (2) Ulcer of left lower extremity with fat layer exposed Status: Acute Current Visit: No Code(s): L97.922 - Non-pressure chronic ulcer of unspecified part of left lower leg with fat layer exposed (3) Venous (peripheral) insufficiency Status: Acute Current Visit: No Code(s): I87.2 - Venous insufficiency ( chronic) (peripheral) (4) Lymphedema Status: Acute Current Visit: No Code(s): I89.0 - Lymphedema, not elsewhere classified (5) Lower extremity edema Status: Acute Current Visit: No Code(s): R60.0 - Localized edema (6) Obesity Status: Chronic Current Visit: No Code(s): E66.9 - Obesity, unspecified Type of Wound Date of Service: 01/08/20 Chief Complaint: Superficial ulcers to bilateral lower legs History of Wound: This 74-year-old male with multiple comorbidities presents to the wound healing center today for superficial bilateral lower leg ulcers. Patient states he was seen at the wound healing center a few years ago for the exact same thing. He relates that he was a self-referral and called in for an appointment before being seen by anybody else for these issues. He has noticed some. He said he has compression stockings that he wears usually at home, but has recently been unable to wear them. He denies any feelings currently of nausea, vomiting, fever, chills. He also relates that he feels each lower leg has continued to look better since the day he originally made his appointment. Progress of Wound: Bilateral lower legs show continued improvement. Patient denies any feelings of nausea, vomiting, fever, chills. - Physical Exam Vital Signs Temp Pulse Resp BP 97.0 F L 74 20 H 155/85 H 01/08/20 10:16 01/08/20 10:16 01/08/20 10:16 01/01/20 11:05 General: Alert, Oriented x3, Cooperative, No apparent distress Extremities: No cyanosis, Capillary Refill Less than 3 Seconds - To distal digits of each foot, No Calf Tenderness - Negative Wilfred and Rajput signs bilateral, Diminished Peripheral Pulses - DP pulses faintly palpable and PT pulses not easily palpable due to significant bilateral lower extremity edema, Edema - Significant bilateral lower extremity edema Skin: Ulcer/ Wound - Superficial ulcers with fat layer exposed to bilateral lower legs. Great improvement noted again this week. Base of the ulcer sites noted to be a mixture of adherent slough, fibrin, biofilm, as well as some slight hyperkeratotic tissue. There is no probing to bone, no tracking, no undermining. No purulence, no malodor. There is improved erythema to bilateral lower legs. No significant increase in warmth. Drainage has improved a great deal as well. Wound Measurements and Assessment WC - Nurse 1 - General Ulcer Measurement Start: 01/01/20 11:05 Freq: Status: Active Protocol: Activity Type Activity Date Activity User E-Sign Co-Sign Detail Recorded Client Recorded Date Recorded By Document 01/08/20 10:16 DV [id number] 01/08/20 10:21 DV 01/08/20 10:16 Wound Center Nurse 1 [Ulcer Assessment] #4 RLE med Cluster -Combined with other wound No -Current Size (cm) - Length 0.1 -Current Size (cm) - Width 0.1 -Current Size (cm) - Depth 0.1 -Total Square Cm 0.01 -Photo Taken No -Exudate Amt None Present -Wound Margin Indistinct, Non -Visible -Granulation Amt None Present (0 %) -Granulation Quality N/A -Slough/Fibrin Yes -Necrosis Amt Small (1-33%) -Necrotic Tissue Type Adherent Slough -Structure Exposed None/Limited to Skin Breakdown -Texture (Uyen-wound Skin Appearance) Assessed, Localized Edema -Moisture (Uyen-wound Skin Appearance Assessed,Dry/ ) Scaly -Color (Uyen-wound Skin Appearance) No Abnormality, Assessed -Temperature (Uyen-wound Skin No Abnormality Appearance) (Pt Warm) -Tenderness on Palpation (Uyen-wound No Skin Appearance) -Foul Odor after Cleansing No -Anesthetic Used 4% Lidocaine Solution #3 LLE lat -Combined with other wound No -Current Size (cm) - Length 0.1 -Current Size (cm) - Width 0.1 -Current Size (cm) - Depth 0.1 -Total Square Cm 0.01 -Photo Taken No -Epithelialization None Present -Tunneling No -Undermining/Tunneling No -Circular Undermining No -Exudate Amt None Present -Wound Margin Indistinct, Non -Visible -Granulation Amt None Present (0 %) -Granulation Quality N/A -Slough/Fibrin Yes -Necrosis Amt Medium (34-66%) -Necrotic Tissue Type Adherent Slough -Structure Exposed None/Limited to Skin Breakdown -Texture (Uyen-wound Skin Appearance) Assessed, Localized Edema -Moisture (Uyen-wound Skin Appearance Assessed,Dry/ ) Scaly -Color (Uyen-wound Skin Appearance) No Abnormality, Assessed -Temperature (Uyen-wound Skin No Abnormality Appearance) (Pt Warm) -Tenderness on Palpation (Uyen-wound No Skin Appearance) -Foul Odor after Cleansing No -Anesthetic Used 4% Lidocaine Solution [Edema Assessment] -Lower Limb Edema Present Yes -Right Calf (cm) 71.0 -Right Ankle (cm) 34.0 -Left Calf (cm) 67.5 -Left Ankle (cm) 37.0 WC - Nurse 2 - General Ulcer CM Notes Start: 01/01/20 11:05 Freq: Status: Active Protocol: Activity Type Activity Date Activity User E-Sign Co-Sign Detail Recorded Client Recorded Date Recorded By Document 01/08/20 10:33 [id number] 01/08/20 10:38 JAYESH 01/08/20 10:33 Wound Center Nurse 2 [Procedure/Treatment] #4 RLE med Cluster -Time 10:37 -Correct Patient Yes -Correct Side, Site, Position Yes -Correct Procedure Yes -Procedure Performed Yes -Type of Procedure Debridement -Clinical Debridement Selective -Post Debridement Size (cm) - Length 0.1 -Post Debridement Size (cm) - Width 0.1 -Post Debridement Size (cm) - Depth 0.1 -Total Square Cm 0.01 -Wound/Ulcer Outcome Not Healed -Ulcer Cleansing Rinsed/ Irrigated with Saline -Foul Odor after Cleansing No -Bioengineered Tissue No -Bleeding Controlled with Pressure -Offloading No -Treatment Response Procedure Tolerated Well #3 LLE lat -Time 10:37 -Correct Patient Yes -Correct Side, Site, Position Yes -Correct Procedure Yes -Procedure Performed Yes -Type of Procedure Debridement -Clinical Debridement Selective -Post Debridement Size (cm) - Length 0.1 -Post Debridement Size (cm) - Width 0.1 -Post Debridement Size (cm) - Depth 0.1 -Total Square Cm 0.01 -Wound/Ulcer Outcome Not Healed -Ulcer Cleansing Rinsed/ Irrigated with Saline -Foul Odor after Cleansing No -Bioengineered Tissue No -Bleeding Controlled with Pressure -Offloading No -Treatment Response Procedure Tolerated Well [See Physician Procedure note for Specifics] Pain Scale: 0-10 Numeric [Pain] -Is Patient Pain Free? Yes Musculoskeletal: Tenderness - Very minor tenderness with manipulation of ulcer sites Neurological: Sensory exam intact to light touch and pain Psych/Mental Status: Normal Affect, Appropriate Debridement Note Post-Debridement Measurements/Treatment WC - Nurse 2 - General Ulcer CM Notes Start: 01/01/20 11:05 Freq: Status: Active Protocol: Activity Type Activity Date Activity User E-Sign Co-Sign Detail Recorded Client Recorded Date Recorded By Document 01/01/20 11:21 [id number] 01/01/20 11:28 JF Document 01/08/20 10:33 [id number] 01/08/20 10:38 01/01/20 01/08/20 11:21 10:33 Wound Center Nurse 2 #4 E med Cluster -Time 11:23 10:37 -Correct Patient Yes Yes -Correct Side, Site, Position Yes Yes -Correct Procedure Yes Yes -Procedure Performed Yes Yes -Type of Procedure Debridement Debridement -Clinical Debridement Selective Selective -Post Debridement Size (cm) - Length 0.1 0.1 -Post Debridement Size (cm) - Width 0.1 0.1 -Post Debridement Size (cm) - Depth 0.1 0.1 -Total Square Cm 0.01 0.01 -Wound/Ulcer Outcome Not Healed Not Healed -Ulcer Cleansing Rinsed/ Rinsed/ Irrigated with Irrigated with Saline Saline -Foul Odor after Cleansing No No -Bioengineered Tissue No No -Bleeding Controlled with Pressure Pressure -Offloading No No -Treatment Response Procedure Procedure Tolerated Well Tolerated Well #3 LLE lat -Time 11:27 10:37 -Correct Patient Yes Yes -Correct Side, Site, Position Yes Yes -Correct Procedure Yes Yes -Procedure Performed Yes Yes -Type of Procedure Debridement Debridement -Clinical Debridement Selective Selective -Post Debridement Size (cm) - Length 0.1 0.1 -Post Debridement Size (cm) - Width 0.1 0.1 -Post Debridement Size (cm) - Depth 0.1 0.1 -Total Square Cm 0.01 0.01 -Wound/Ulcer Outcome Not Healed Not Healed -Ulcer Cleansing Rinsed/ Rinsed/ Irrigated with Irrigated with Saline Saline -Foul Odor after Cleansing No No -Bioengineered Tissue No No -Bleeding Controlled with Pressure Pressure -Offloading No No -Treatment Response Procedure Procedure Tolerated Well Tolerated Well Pain Scale: 0-10 Numeric Is Patient Pain Free? Yes Yes Wound debrided: Right lower leg Laterality: Right Type of Debridement: Selective debridement Anesthesia Used: 4% Lidocaine Solution Depth: in the subcutaneous layer Percentage of wound debrided: 100 Instrument Used: 3mm curette Tissue Removed: Slough and fibrin Severity: Fat Layer Exposed Amount of bleeding with debridement: Mild Bleeding Controlled with: Pressure Patient tolerated procedure well - Additional Wound Wound debrided: Left lower leg Laterality: Left Type of Debridement: Selective debridement Anesthesia Used: 4% Lidocaine Solution Depth: in the subcutaneous layer Percentage of wound debrided: 100 Instrument Used: 3mm curette Tissue Removed: Slough and fibrin Severity: Fat Layer Exposed Amount of bleeding with debridement: Mild Bleeding Controlled with: Pressure Patient tolerated procedure: Patient tolerated procedure well Assessment/Plan Assessment: As noted above Plan: Patient carefully examined and evaluated today. Patient is showed another great improvement this week with decreased drainage. Next, a mild selective debridement was performed to each ulcer site as noted in the clinical panel again today. Patient has been doing well with these over the last week with no issues. Next, each ulcer site was then dressed with Aquacel Ag to the base followed by a gauze dressing and a compressive dressing with Norbert bandage. Patient has had PT/OT evaluation. Patient also to continue with Lac-Hydrin to apply to bilateral lower legs daily. Patient was instructed to keep pressure off of each of the ulcer sites at all times while seated or lying down. He is instructed to keep his legs elevated at all times. He is instructed to not sit with his legs in the dependent position. Patient relates that he understands this. LEAS and venous doppler exams were ordered for this patient and we will continue to monitor for results from these once they are completed. He again is to have his dressings changed as stated above on a daily basis. We will refer the patient to the lymphedema clinic at this time. The importance of a high- protein diet was stressed with the patient to help optimize ulcer healing potential. The patient was educated on all signs and symptoms of local and systemic infection, and he was instructed to go to the emergency room imme diately should he notice any of these. Otherwise, patient is to follow back up in clinic in 1 week to check on progress, or sooner if needed before then.
[2020-01-15 09:51] VITALS: BP 146/74; PULSE 79; RESP 16; TEMP 36.3; BMI 46.3
--- NOTE | 2020-01-15 10:49 | PCM.WC.PN ---
(1) Ulcer of right lower extremity with fat layer exposed Status: Acute Current Visit: No Code(s): L97.912 - Non-pressure chronic ulcer of unspecified part of right lower leg with fat layer exposed (2) Ulcer of left lower extremity with fat layer exposed Status: Acute Current Visit: No Code(s): L97.922 - Non-pressure chronic ulcer of unspecified part of left lower leg with fat layer exposed (3) Venous (peripheral) insufficiency Status: Acute Current Visit: No Code(s): I87.2 - Venous insufficiency (chronic) (peripheral) (4) Lymphedema Status: Acute Current Visit: No Code(s): I89.0 - Lymphedema, not elsewhere classified (5) Lower extremity edema Status: Acute Current Visit: No Code(s): R60.0 - Localized edema (6) Obesity Status: Chronic Current Visit: No Code(s): E66.9 - Obesity, unspecified Type of Wound Date of Service: 01/15/20 Chief Complaint: Superficial ulcers to bilateral lower legs History of Wound: This 74-year-old male with multiple comorbidities presents to the wound healing center today for superficial bilateral lower leg ulcers. Patient states he was seen at the wound healing center a few years ago for the exact same thing. He relates that he was a self-referral and called in for an appointment before being seen by anybody else for these issues. He has noticed some. He said he has compression stockings that he wears usually at home, but has recently been unable to wear them. He denies any feelings currently of nausea, vomiting, fever, chills. He also relates that he feels each lower leg has continued to look better since the day he originally made his appointment. Progress of Wound: Bilateral lower legs stable. Patient denies any feelings of nausea, vomiting, fever, chills. - Physical Exam Vital Signs Temp Pulse Resp BP 97.3 F L 79 16 146/74 H 01/15/20 09:51 01/15/20 09:51 01/15/20 09:51 01/15/20 09:51 General: Alert, Oriented x3, Cooperative, No apparent distress Extremities: No cyanosis, Capillary Refill Less than 3 Seconds - To distal digits of each foot, No Calf Tenderness - Negative Wilfred and Rajput signs bilateral, Diminished Peripheral Pulses - DP pulses faintly palpable and PT pulses not easily palpable due to significant bilateral lower extremity edema, Edema - Significant bilateral lower extremity edema Skin: Ulcer/ Wound - Superficial ulcers with fat layer exposed to bilateral lower legs. Continued improvement noted, with very small area open to each lower extremity. Base of the ulcer sites noted to be a mixture of adherent slough, fibrin, biofilm, as well as some slight hyperkeratotic tissue. There is no probing to bone, no tracking, no undermining. No purulence, no malodor. There is improved erythema to bilateral lower legs. No significant increase in warmth. Drainage has improved a great deal as well. Wound Measurements and Assessment - Nurse 1 - General Ulcer Measurement Start: 01/01/20 11:05 Freq: Status: Active Protocol: Activity Type Activity Date Activity User E-Sign Co-Sign Detail Recorded Client Recorded Date Recorded By Document 01/15/20 09:51 [facility] [id number] 01/15/20 10:00 [facility] 01/15/20 09:51 Wound Center Nurse 1 [Ulcer Assessment] #4 RLE med Cluster -Combined with other wound No -Current Size (cm) - Length 0.1 -Current Size (cm) - Width 0.1 -Current Size (cm) - Depth 0.1 -Total Square Cm 0.01 -Epithelialization Large 67-100% #3 LLE lat -Combined with other wound No -Current Size (cm) - Length 0.1 -Current Size (cm) - Width 0.1 -Current Size (cm) - Depth 0.1 -Total Square Cm 0.01 -Epithelialization Large 67-100% [Edema Assessment] -Lower Limb Edema Present Yes -Right Calf (cm) 67.5 -Right Ankle (cm) 34.8 -Left Calf (cm) 68.6 -Left Ankle (cm) 34 - Nurse 2 - General Ulcer CM Notes Start: 01/01/20 11:05 Freq: Status: Active Protocol: Activity Type Activity Date Activity User E-Sign Co-Sign Detail Recorded Client Recorded Date Recorded By Document 01/15/20 10:16 [id number] 01/15/20 10:17 01/15/20 10:16 Wound Center Nurse 2 [Procedure/Treatment] #4 RLE med Cluster -Time 10:17 -Correct Patient Yes -Correct Side, Site, Position Yes -Correct Procedure Yes -Procedure Performed Yes -Type of Procedure Debridement -Clinical Debridement Selective -Post Debridement Size (cm) - Length 0.1 -Post Debridement Size (cm) - Width 0.1 -Post Debridement Size (cm) - Depth 0.1 -Total Square Cm 0.01 -Wound/Ulcer Outcome Not Healed -Ulcer Cleansing Rinsed/ Irrigated with Saline -Foul Odor after Cleansing No -Bioengineered Tissue No -Bleeding Controlled with Pressure -Offloading No -Treatment Response Procedure Tolerated Well #3 LLE lat -Time 10:17 -Correct Patient Yes -Correct Side, Site, Position Yes -Correct Procedure Yes -Procedure Performed Yes -Type of Procedure Debridement -Clinical Debridement Selective -Post Debridement Size (cm) - Length 0.1 -Post Debridement Size (cm) - Width 0.1 -Post Debridement Size (cm) - Depth 0.1 -Total Square Cm 0.01 -Wound/Ulcer Outcome Not Healed -Ulcer Cleansing Rinsed/ Irrigated with Saline -Foul Odor after Cleansing No -Bioengineered Tissue No -Bleeding Controlled with Pressure -Offloading No -Treatment Response Procedure Tolerated Well [See Physician Procedure note for Specifics] Pain Scale: 0-10 Numeric [Pain] -Is Patient Pain Free? Yes Musculoskeletal: Tenderness - Very minor tenderness with manipulation of ulcer sites Neurological: Sensory exam intact to light touch and pain Psych/Mental Status: Normal Affect, Appropriate Debridement Note Post-Debridement Measurements/Treatment WC - Nurse 2 - General Ulcer CM Notes Start: 01/01/20 11:05 Freq: Status: Active Protocol: Activity Type Activity Date Activity User E-Sign Co-Sign Detail Recorded Client Recorded Date Recorded By Document 01/01/20 11:21 [id number] 01/01/20 11:28 Document 01/08/20 10:33 [id number] 01/08/20 10:38 Document 01/15/20 10:16 [id number] 01/15/20 10:17 01/01/20 01/08/20 01/15/20 11:21 10:33 10:16 Wound Center Nurse 2 #4 RLE med Cluster -Time 11:23 10:37 10:17 -Correct Patient Yes Yes Yes -Correct Side, Site, Position Yes Yes Yes -Correct Procedure Yes Yes Yes -Procedure Performed Yes Yes Yes -Type of Procedure Debridement Debridement Debridement -Clinical Debridement Selective Selective Selective -Post Debridement Size (cm) - Length 0.1 0.1 0.1 -Post Debridement Size (cm) - Width 0.1 0.1 0.1 -Post Debridement Size (cm) - Depth 0.1 0.1 0.1 -Total Square Cm 0.01 0.01 0.01 -Wound/Ulcer Outcome Not Healed Not Healed Not Healed -Ulcer Cleansing Rinsed/ Rinsed/ Rinsed/ Irrigated with Irrigated with Irrigated with Saline Saline Saline -Foul Odor after Cleansing No No No -Bioengineered Tissue No No No -Bleeding Controlled with Pressure Pressure Pressure -Offloading No No No -Treatment Response Procedure Procedure Procedure Tolerated Well Tolerated Well Tolerated Well #3 LLE lat -Time 11:27 10:37 10:17 -Correct Patient Yes Yes Yes -Correct Side, Site, Position Yes Yes Yes -Correct Procedure Yes Yes Yes -Procedure Performed Yes Yes Yes -Type of Procedure Debridement Debridement Debridement -Clinical Debridement Selective Selective Selective -Post Debridement Size (cm) - Length 0.1 0.1 0.1 -Post Debridement Size (cm) - Width 0.1 0.1 0.1 -Post Debridement Size (cm) - Depth 0.1 0.1 0.1 -Total Square Cm 0.01 0.01 0.01 -Wound/Ulcer Outcome Not Healed Not Healed Not Healed -Ulcer Cleansing Rinsed/ Rinsed/ Rinsed/ Irrigated with Irrigated with Irrigated with Saline Saline Saline -Foul Odor after Cleansing No No No -Bioengineered Tissue No No No -Bleeding Controlled with Pressure Pressure Pressure -Offloading No No No -Treatment Response Procedure Procedure Procedure Tolerated Well Tolerated Well Tolerated Well Pain Scale: 0-10 Numeric Is Patient Pain Free? Yes Yes Yes Wound debrided: Right lower leg Laterality: Right Type of Debridement: Excisional debridement Anesthesia Used: 4% Lidocaine Solution Depth: in the subcutaneous layer Percentage of wound debrided: 100 Instrument Used: 3mm curette Tissue Removed: Slough and fibrin Severity: Fat Layer Exposed Amount of bleeding with debridement: Mild Bleeding Controlled with: Pressure Patient tolerated procedure well - Additional Wound Wound debrided: Left lower leg Laterality: Left Type of Debridement: Excisional debridement Anesthesia Used: 4% Lidocaine Solution Depth: in the subcutaneous layer Percentage of wound debrided: 100 Instrument Used: 3mm curette Tissue Removed: Slough and fibrin Severity: Fat Layer Exposed Amount of bleeding with debridement: Mild Bleeding Controlled with: Pressure Patient tolerated procedure: Patient tolerated procedure well Assessment/Plan Assessment: As noted above Plan: Patient carefully examined and evaluated today. Continued improvement noted with only very small areas open to each lower leg. Another mild selective debridement was performed to each ulcer site as noted in the clinical panel again today. Patient has been doing well with these over the last week with no issues. Next, each ulcer site was then dressed with Aquacel Ag to the base followed by a gauze dressing and a compressive dressing with Norbert bandage. Patient has had PT/OT evaluation. Patient also to continue with Lac-Hydrin to apply to bilateral lower legs daily. Patient was instructed to keep pressure off of each of the ulcer sites at all times while seated or lying down. He is instructed to keep his legs elevated at all times. He is instructed to not sit with his legs in the dependent position. Patient relates that he understands this. LEAS and venous doppler exams were ordered for this patient and results will be in the patient's chart. He again is to have his dressings changed as stated above on a daily basis. Patient will see the lymphedema clinic on January 25. The importance of a high-protein diet was stressed with the patient to help optimize ulcer healing potential. The patient was educated on all signs and symptoms of local and systemic infection, and he was instructed to go to the emergency room immediately should he notice any of these. Otherwise, patient is to follow back up in clinic in 2 weeks to check on progress, or sooner if needed before then.
[2020-01-28 14:42] VITALS: BP 132/66; PULSE 87; RESP 20; TEMP 36.9; BMI 46.3
== END 2020-01-27 23:59 ==
LOC: WC 10:30
PROVIDERS: Referring Provider Podiatrist; Visit Provider Podiatrist
DX: I87.2 Venous insufficiency (chronic) (peripheral) (principal); I89.0 Lymphedema, not elsewhere classified; I73.9 Peripheral vascular disease, unspecified; L97.822 Non-pressure chronic ulcer of other part of left lower leg with fat layer exposed; L97.812 Non-pressure chronic ulcer of other part of right lower leg with fat layer exposed; R60.0 Localized edema; E66.9 Obesity, unspecified; Z68.42 Body mass index [BMI] 45.0-49.9, adult; Z71.3 Dietary counseling and surveillance
CPT/HCPCS: 93923; 93970; 97597

== ENCOUNTER 2020-01-26 15:39 | Outpatient (RCR) | payer MEDICARE, MEDICAID, SELFPAY ==
[2020-01-08 10:16] VITALS: BMI 46.3
--- NOTE | 2020-01-26 18:59 | HP.OTEVAL ---
Patient's Visit Information BLANCA SHARMA is a 75 year old M, referred to Occupational Therapy by Harjinder Wesley DPM, with a diagnosis of BLE Lymphedema. Date of Evaluation: 01/26/20 Occupational Therapist: EDWARD Flor/Davidson, CHT - Subjective Subjective: This 75 year old male was seen for OT eval with dx of LE edema- superficial ulcers to bilateral lower legs- pt states he has been going to the wound center. Pt states he did get a lift chair that is helping him get his legs elevated. PT states he does have compression sock but has not used them for about a year. Pts is wrapping pts LE with jose maria wraps daily. pt and would like to know what more she can do for her . - Lower Limb Functional Index Lower Extremity Functional Score: 35 - Goals Demonstrate a 20% reduction in edema by d/c: Yes Demonstrate adequate knowledge of self-massage by 2nd week: Yes Demonstrate adequate knowledge skin care/prec by 2nd week: Yes Demonstrate adequate knowledge therapeutic exercises by d/c: Yes Select approp compression garment w/donning/care/wear by d/c: Yes Voice need to replace compression garment every 4-6mo by dc: Yes - Rehabilitation General Assessment: Pt demo with LE edema and need of skilled OT services 1x week for 3 weeks to ensure pt performing lymph stime ex, self manual lymph massage, and use of compression alternatives to assist pt in mtg of LE lymphedema. pt and given information on compression alternatives, exercise and skin care pt and agree to POC- they will schedule follow up in 2 weeks states they will get compression alternatives and return for ed. on self manual lymph massage. Rehabilitation Potential: Good - Anticipated Interventions Anticipated Interventions: Education re assistive Equipment, Education re Diagnosis, Manual Lymph Drainage, Education re Life-long lymphedema Management, Education re Skin Care and Precautions, Education re Correct Donning Tech,Care&Wearing Sched Comp Garments, Caregiver Training, Home Program - Visit Plan Frequency: 1x/Week Duration: 2 Weeks TEXT: Thank you for the opportunity to evaluate your patient. For Medicare and Medicare HMO plans, please review the plan of care and approve it. It will need to be FAXED BACK to us at [phone] for Medicare purposes. Please let me know if there are questions or concerns regarding this plan of care. Physician Signature: Date:
--- NOTE | 2020-06-22 12:49 | HP.OTDCNRP_ITS ---
BLANCA Matt EDITH was seen in my office for initial evaluation on 01/26/20. The following Plan of Care was established for this patient: Initial Frequency: 1x/Week Initial Duration: 2 Weeks Anticipated Interventions: Education re assistive Equipment, Education re Diagnosis, Manual Lymph Drainage, Education re Life-long lymphedema Management, Education re Skin Care and Precautions, Education re Correct Donning Tech,Care&Wearing Sched Comp Garments, Caregiver Training, Home Program This patient was last seen in our office 01/26/20. Pertinent comments regarding their Occupational therapy will appear below: Pt was seen for OT eval only- Pt has not schedule further apts, pt d/c at this t toni due to time lapse in services. At this point I will be discontinuing this patient from occupational therapy. I would be happy to see this patient again in the future if found appropriate by the physician. Thank you! Rowena Carrillo, OTR/L, CHT
== END 2020-01-26 19:00 | disposition home or self-care (01) ==
LOC: OT 15:39
PROVIDERS: PCP Nurse Practitioner; Referring Provider Podiatrist; Visit Provider Podiatrist
DX: I89.0 Lymphedema, not elsewhere classified (principal)
CPT/HCPCS: 97166; 97530

== ENCOUNTER 2020-01-28 15:00 | Outpatient (RCR) | payer MEDICARE, MEDICAID, SELFPAY ==
[2020-01-28 00:52] VITALS: BP 146/74; PULSE 79; RESP 16; TEMP 36.3
--- NOTE | 2020-01-28 15:19 | PN.PCM_ITS ---
(1) Ulcer of right lower extremity with fat layer exposed Status: Resolved Code(s): L97.912 - Non-pressure chronic ulcer of unspecified part of right lower leg with fat layer exposed (2) Ulcer of left lower extremity with fat layer exposed Status: Resolved Code(s): L97.922 - Non-pressure chronic ulcer of unspecified part of left lower leg with fat layer exposed (3) Venous (peripheral) insufficiency Status: Chronic Code(s): I87.2 - Venous insufficiency (chronic) (peripheral) (4) Lymphedema Status: Chronic Code(s): I89.0 - Lymphedema, not elsewhere classified (5) Lower extremity edema Status: Chronic Code(s): R60.0 - Localized edema (6) Tinea unguium Status: Chronic Code(s): B35.1 - Tinea unguium (7) Toe pain, right Status: Chronic Code(s): M79.674 - Pain in right toe(s) (8) Toe pain, left Status: Chronic Code(s): M79.675 - Pain in left toe(s) Type of Wound Date of Service: 01/28/20 Chief Complaint: Superficial ulcers to bilateral lower legs History of Wound: This 75-year-old male with multiple comorbidities presents to the wound healing center today for superficial bilateral lower leg ulcers that are recurrent and related to his chronic lower extremity edema. Patient states he was seen at the wound healing center a few years ago for the exact same thing. He said he has compression stockings that he wears usually at home, but has recently been unable to wear them. He denies any feelings currently of nausea, vomiting, fever, chills. He relates he went for lymphedema referral with Yoselin at [facility] who recommends more aggressive compression garments. He tries to elevate his limbs at rest. He also relates his nails are long and thick. He asked for help trimming these but he does not feel safe performing this on his own. He has chronic edema and temperature changes. He denies drainage, redness, or known infection to the lower extremities. Progress of Wound: Healed - Physical Exam Vital Signs Temp Pulse Resp BP 97.3 F L 79 16 146/74 H 01/28/20 00:52 01/28/20 00:52 01/28/20 00:52 01/28/20 00:52 General: Alert, Oriented x3, Cooperative, No apparent distress HEENT: Atraumatic Extremities: No cyanosis, Capillary Refill Less than 3 Seconds, No Calf Tenderness - Negative Wilfred and Rajput sign, Diminished Peripheral Pulses, Edema - Lymphedema bilateral lower extremity with varicosities also Skin: Ulcer/ Wound - No purulence, erythema, streaking, odor, infection. Full epithelialization is noted bilateral lower extremity. Ulcers are healed. There is no maceration, necrosis, skin peeling, or streaking bilateral, - - Toenails bilateral 1, 2, 3, 4, 5 are long, thick, dystrophic, and with subungual debris. The toenails are painful to compress and touch and are incurvated at the medial lateral borders. Musculoskeletal: No Tenderness to Palpation of Joints or Extremities, Muscle Wasting Neurological: Sensory exam intact to light touch and pain Psych/Mental Status: Normal Affect, Appropriate Debridement Note Wound debrided: bilateral legs No debridement was completed today - remains healed Assessment/Plan Assessment: Right and left leg ulcers, healed, no infections. Chronic lower extremity edema secondary to multiple etiologies including CHF. Venous insu fficiency. Lymphedema. Onychomycosis with right and left toe pain Plan: Patient carefully examined and evaluated today. Debridement was not performed today because the ulcer sites have healed. Patient has had PT/OT evaluation and also a lymphedema referral at [facility] with Yoselin. Multilayer compression garments with Velcro straps recommended. This is consistent with Farrow wrap. An order was provided today and will be processed unless Becki has already started this. This will be confirmed. Patient also to continue with Lac-Hydrin to apply to bilateral lower legs daily. Patient was instructed to keep pressure off of each of the recently healed ulcer sites at all times while seated or lying down. He is instructed to keep his legs elevated at all times. He is instructed to not sit with his legs in the dependent position. To avoid idle standing or sitting. To continue to manage his CHF condition with his primary care physician. To avoid excessive salt intake via diet. This patient relates that he understands this. LEAS and venous doppler exams were ordered for this patient and results will be in the patient's chart. Patient will see the lymphedema clinic on January 25. The patient was educated on all signs and symptoms of local and systemic infection, and he was instructed to go to the emergency room immediately should he notice any of these. His toenails were debrided in length and thickness bilateral 1, 2, 3, 4, 5 per his request. He tolerated this well. He relates he is unable to safely perform this on his own and asked for help. This was performed to reduce pressure, pain, and wound formation. This was performed with a nail nipper without incident. He was advised to continue wear protective and supportive shoe gear. He understands further work-up for thickened toenails exist and elects to proceed with palliative care only at this time. This patient will return to the wound healing center in 2 weeks for healed ulcer check and also to follow-up on his compression garment order status. I answered all his questions. This patient was seen today as a courtesy visit for Dr. Wesley.
== END 2020-02-26 23:59 ==
LOC: WC 15:00
PROVIDERS: PCP Nurse Practitioner; Referring Provider Podiatrist; Visit Provider Podiatrist
DX: Z09 Encounter for follow-up examination after completed treatment for conditions other than malignant neoplasm (principal); I87.2 Venous insufficiency (chronic) (peripheral); I89.0 Lymphedema, not elsewhere classified; R60.0 Localized edema; B35.1 Tinea unguium; M79.675 Pain in left toe(s); M79.674 Pain in right toe(s); I50.9 Heart failure, unspecified
CPT/HCPCS: 99213; G0463

== ENCOUNTER → 2020-04-03 | Outpatient (CLI) | payer MEDICARE, MEDICAID, SELFPAY ==
[2020-01-28 14:42] VITALS: BMI 46.3
== END | disposition home or self-care (01) ==
LOC: LAB 13:23
PROVIDERS: PCP Nurse Practitioner; Visit Provider Nurse Practitioner
DX: Z11.59 Encounter for screening for other viral diseases (principal)

== ENCOUNTER 2021-09-14 11:37 | Inpatient (IN) | payer MEDICARE, MEDICAID, SELFPAY ==
[2021-09-14] VITALS (10 sets, daily range): BP systolic 135–152; BP diastolic 63–82; PULSE 77–96; RESP 16–20; TEMP 36.6–38.7; O2SAT 95–98; BMI 44.0; BMI 48.8
--- NOTE | 2021-09-14 13:20 | RAD_ITS ---
STUDY: X-RAY CHEST REASON FOR EXAM: Male, 76 years old. CHEST PAIN fever TECHNIQUE: XR Chest 1 View COMPARISON: 07/15/16 FINDINGS: There is no demonstrated pleural abnormality. There are multiple overlying cardiac monitoring leads. Normal size heart. Normal mediastinum and faheem. Normal visualized pulmonary arteries. There is atherosclerotic calcification of the aortic arch with tortuosity. There are diffuse degenerative changes of the visualized thoracic spine. There is degenerative osteoarthritis of the bilateral shoulders. There is no demonstrated abnormality of the visualized soft tissue structures of the upper abdomen. RAD/Chest 1 View (Portable) IMPRESSION: There are no acute findings. Electronically Signed: Shelton Santizo MD at 14:21 EST , Service support ,
--- NOTE | 2021-09-14 13:21 | EX.ED.DYSGE1 ---
HPI History of Present Illness Chief Complaint: Edema Informant: patient and spouse/S.O. Onset/Context/Timing Onset: Days Context: Gradual Onset Timing: Continuous Current Severity: Moderate Maximum Severity: Moderate Narrative Narrative: 76-year-old male extensive past medical history of pulmonary emboli on Coumadin, CKD, cellulitis, peripheral arterial disease and gout. He has had redness and swelling in his right lower extremity for days and now developed a fever. He is currently not on antibiotics. He states the symptoms have been going on now for about a week. said he was somewhat lethargic yesterday. He denies any cough or fever. He has been vaccinated against Covid. He denies any dysuria. Prior similar symptoms: Yes Recent Illness/Hospitalization: No PFSH [facility] Medical History (Updated 09/14/21 @ 13:[address] 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 Idiopathic chronic venous hypertension of right leg with ulcer Lymphedema of left lower extremity Lymphedema of right lower extremity Morbid obesity due to excess calories Obesity RAAD (obstructive sleep apnea) Pain in left leg Pain in right leg Pulmonary artery hypertension Pulmonary embolism Pulmonary embolism Transient global amnesia Venous stasis dermatitis Home Medications allopurinol 300 mg PO BID 09/11/14 [History Last Taken 09/10/14] furosemide 40 mg PO BID 09/11/14 [History Last Taken 09/10/14] lisinopril 20 mg PO DAILY 09/11/14 [History Last Taken 09/10/14] warfarin 7 mg PO DAILY 06/23/16 [History Last Taken Unknown] Allergy/AdvReac Type Severity Reaction Status Date / Time No Known Allergies Allergy Verified 09/14/21 13:03 Surgical History Status post adenoidectomy Social History Smoking Status: Never smoker alcohol intake: current alcohol intake frequency: holidays/special occasions only ROS ROS ED ROS Narrative Fever. Right leg swelling. Review of Systems ROS Unobtainable: Denies due to encephalopathy Constitutional Constitutional ED: Reports chills and fever(s) Eyes Eyes: Denies change in vision ENT ENT ED: Denies ear pain, rhinorrhea or sore throat Cardiovascular Cardiovascular: Denies chest pain Respiratory/Chest Respiratory/Chest: Denies cough or dyspnea Gastrointestinal Gastrointestinal: Denies abdominal pain, diarrhea, nausea or vomiting Genitourinary Genitourinary ED: Denies dysuria Musculoskeletal Musculoskeletal: Denies myalgias Integumentary Reports rash Neurologic Neurologic: Denies headache(s) Psychiatric Psychiatric: Denies depression Endocrine Endocrinology: Denies polyuria Allergic/Immunologic Allergic/Immunologic ED: Denies urticaria EXAM Physical Exam Narrative Exam Narrative: 76-year-old male vital signs stable he does have a fever of 101.7. H EENT exam unremarkable. Moist remembers. Neck nontender. Lungs clear to auscultation bilaterally. Heart regular rhythm rate about 95 no murmur. Abdomen morbidly obese with soft nontender normal bowel sounds no peritoneal signs. Moving all 4 extremities. He has chronic significant lymphedema both lower extremities. His right lower leg has obvious cellulitis its red is warm and tender. He can dorsi and plantarflex both feet. His back nontender. Neurologically is awake and alert with no focal motor deficits. Const Vital Signs: 09/14/21 11:37 09/14/21 11:39 09/14/21 12:39 Temperature 101.7 F H 101.7 F H 101.7 F H Temperature Source Temporal Temporal Temporal Pulse Rate 96 96 93 Respiratory Rate 20 H 20 H 20 H Blood Pressure 150/63 H 150/63 H 152/72 H Blood Pressure Mean 92 92 98 Pulse Ox 98 98 98 Oxygen Delivery Method Room Air Room Air Room Air 09/14/21 13:00 09/14/21 13:19 Temperature 100 F H 100 F H Temperature Source Temporal Temporal Pulse Rate 93 Respiratory Rate 20 H Blood Pressure 152/72 H Blood Pressure Mean 98 Pulse Ox 98 Oxygen Delivery Method Room Air Room Air Positive well nourished, well developed and obese; Negative for cachectic, contractures or unkempt General Appearance ED: well developed and NAD; Negative for unkempt, cachectic, contractures, cyanotic or diaphoretic Nutritional Appearance: obese; Negative for cachectic HEENT Reports moist mucous membranes Negative for trauma or tenderness Eyes PERRL and EOMs intact bilaterally Neck no lymphadenopathy, supple and no JVD General: Negative for tenderness Chest Wall inspection of chest normal and palpation of chest normal Cardio regular rate, regular rhythm, S1 normal heart sound, S2 normal heart sound and no murmurs GI normal to inspection, nondistended, normoactive bowel sounds, non-tender, non-distended and no masses Inspection: Negative for abdominal distention Auscultation: normoactive bowel sounds Palpation: soft; Negative for tender, guarding or rebound tenderness present Back/Spine no CVA tenderness Extremity Negative for normal to inspection Extremity Narrative: Bilateral lower extremity chronic lymphedema. Right lower extremity cellulitis. Redness warm to the touch. Mildly tender. General Extremety ED: Yes edema and tenderness General Extremity: edema Neuro oriented x3 and CN's II-XII intact bilaterally Sensorium / Orientation: alert; Negative for orientation impaired, lethargic or stuporous Motor Exam: strength 5/5 throughout Psych mental status grossly normal Appearance: Negative for unkempt Mood & Affect: Negative for depressed or tearful Skin No no rashes or lesions noted and No no wounds Skin Narrative: Cellulitis right lower extremity. General Skin Exam: Negative for jaundice MDM MDM MDM Narrative Medical decision making narrative: 76-year-old male history of chronic lymphedema cellulitis right lower extremity no fever. IV started on IV Unasyn and labs are being obtained. Repeat exam at 2:35 PM patient is doing well. I will speak the hospitalist about admission for IV antibiotics for his right lower extremity cellulitis. Lab Data Attestation: I reviewed the patient's lab results. Lab results narrative: CBC is awake 11.7. Hemoglobin 10.4. Platelets 184. He is on Coumadin is subtherapeutic his INR is 1.5. Electrolytes gap 7 BUN 32 creatinine 2.05 his history of chronic renal insufficiency. This is worse than his baseline creatinine. Liver enzymes are unremarkable other than a total bilirubin 2.0. Lactic acid is 2.0 Labs: Laboratory Results - last 24 hr 09/14/21 09/14/21 09/14/21 13:40 13:40 13:40 WBC 11.7 H RBC 3.30 L Hgb 10.4 L Hct 31.6 L MCV 95.8 H MCH 31.5 MCHC 32.9 RDW Std Deviation 46.8 H RDW Coeff of Adiel 13.3 Plt Count 184 MPV 10.0 Immature Gran % (Auto) 0.900 Neut % (Auto) 91.2 H Lymph % (Auto) 4.5 L [place] % (Auto) 3.0 Eos % (Auto) 0.2 Baso % (Auto) 0.2 Absolute Neuts (auto) 10.7 H Absolute Lymphs (auto) 0.52 L Nucleated RBC % 0 PT 17.0 H INR 1.5 Sodium 137 Potassium 3.8 Chloride 104 Carbon Dioxide 26.0 Anion Gap 7 BUN 32 H Creatinine 2.05 H Estim Creat Clear Calc 33.65 Est GFR (MDRD) Af Amer 41 L Est GFR (MDRD) Non-Af 34 L BUN/Creatinine Ratio 15.6 Glucose 141 H Calcium 9.1 Total Bilirubin 2.10 H AST 24 ALT 15 L Alkaline Phosphatase 116 Total Protein 7.7 Albumin 2.6 L Globulin 5.1 H Albumin/Globulin Ratio 0.5 L Radiography Chest X-Ray - ED: 1 View, Read by ED Physician, Heart, Lungs, Mediastinum, Bony Structures, No Acute Disease and Chronic Changes Diagnostic Testing: Clinical Impression(s) from Imaging Studies Chest X-Ray 09/14/21 13:20 IMPRESSION: There are no acute findings. Electronically Signed: Shelton Santizo MD at 14:21 EST , Service support , Portable chest x-ray 1 view interpreted by myself and the radiologist shows no acute abnormality. Normal cardiac silhouette. No infiltrate. Discharge Plan Dx/Rx/DC Orders Clinical Impression: Cellulitis of leg, right, CKD (chronic kidney disease) stage 3, GFR 30-59 ml/min, HTN (hypertension), Obesity, Lymphedema of left lower extremity, Lymphedema of right lower extremity, Fever Disposition Disposition: [facility]
[2021-09-14 14:04] LABS: Absolute Lymphocyte Count 0.52 X10^3/uL (0.83-4.51); Absolute Neutrophil Count 10.7 X10^3/uL (2.0-7.7); Basophil# 0.02 X10^3/uL; Basophil% 0.2 % (0-1); Eosinophil# 0.02 X10^3/uL; Eosinophils% 0.2 % (0-5); Hematocrit 31.6 % (40-54); Hemoglobin 10.4 g/dL (13.0-16.5); Lymphocyte # 0.52 X10^3/ul (0.83-4.51); Lymphocyte % 4.5 % (19-41); Mean Corp Hgb Conc 32.9 g/dL (32-36); Mean Corpuscular Hgb 31.5 pg (27.0-32.0); Mean Corpuscular Volume 95.8 fL (80-94); Monocyte# 0.35 X10^3/uL; NRBC Flagged by Analyzer 0 % (0-5); Neutrophil # 10.66 X10^3/uL (2.7-7.7); Neutrophil % 91.2 % (47-70); POSITIVE DIFFERENTIAL YES; Platelet Count 184 K/mm3 (150-450); RBC Distribution Width CV 13.3 % (11.6-14.6); RBC Distribution Width SD 46.8 fl (35.1-43.9); White Blood Count 11.7 K/mm3 (4.4-11.0)
[2021-09-14 14:12] LABS: International Normalized Ratio 1.5
[2021-09-14 14:13] LABS: Differential Indicated SCAN CRITERIA MET
[2021-09-14] MEDS: Acetaminophen 500 MG Tablet 1000 MG PO (14:13)
[2021-09-14 14:20] LABS: ALB/GLOB Ratio 0.5 RATIO (0.9-2.4); AST(SGOT) 24 U/L (15-37); Alanine Aminotransfer ALT/SGPT 15 U/L (16-61); Albumin, Serum 2.6 g/dL (3.2-5.0); Alkaline Phosphatase 116 U/L (45-117); Anion Gap 7 (5-15); BUN 32 mg/dL (7-18); BUN/Creat Ratio 15.6 RATIO (10-20); Calcium,Total 9.1 mg/dL (8.5-10.1); Chloride 104 mmol/L (98-107); Creatinine, Serum 2.05 mg/dL (0.70-1.30); EST Glomerular Filtration Rate 34 mL/min (>60); Est Glom Filt Rate - Afr Amer 41 mL/min (>60); Estimated Creatinine Clearance 33.65 ml/min; Globulin 5.1 g/dL (2.2-4.2); Glucose 141 mg/dL (74-106); Potassium 3.8 mmol/L (3.5-5.1); Protein, Total 7.7 g/dL (6.4-8.2); Sodium Level 137 mmol/L (136-145)
--- NOTE | 2021-09-14 14:55 | NURSING ---
MED SURG VALERIE CELLULITIS, DM, LYMPHODIMA
[2021-09-14 15:04] LABS: Platelet Estimate ADEQUATE (ADEQ); Red Cell Morphology NORM C+C NORMAL (NORM C&C)
--- NOTE | 2021-09-14 15:18 | VDLE_ITS ---
Reason For Study: SWELLING RIGHT LEFT GSV is normal. GSV is normal. CFV is compressible, spontaneous, phasic, CFV is compressible, spontaneous, phasic, competent and demonstrates normal competent, and demonstrates normal augmentation. augmentation. FV is compressible, spontaneous, phasic, FV is compressible, spontaneous, phasic, competent and demonstrates normal competent and demonstrates normal augmentation. augmentation. POP V is compressible, spontaneous, phasic, POP V is compressible, spontaneous, phasic, competent and demonstrates normal competent and demonstrates normal augmentation. augmentation. T/P Trunk is compressible. T/P Trunk is compressible. PTV is compressible. PTV is compressible. RT PerV is compressible. LT PerV is compressible. Procedure Exam performed portable in ED. A preliminary report was called and/or faxed to ED. VL/Venous Duplex US - Cordell Extrem Interpretation Summary Deep veins of the lower extremities are bilaterally patent and compressible seg mentally. There is no evidence of deep vein thrombosis on either side. Valvular competence appears in tact within the proximal deep venous systems bilaterally. The great saphenous veins appear bila terally patent and compressible segmentally. Ordering Physician: Jimmy Valencia Referring Physician: MEME BROCK Performed By: Carmen Ryan, RDCS, RVT
--- NOTE | 2021-09-14 15:22 | HP.PCM.HOS_ITS ---
Documented by User: Jimmy KIRBY 09/14/21 15:46 HPI - General General Date of Admission: 09/14/21 Date of Service: 09/14/21 Chief Complaint: LLE cellulitis HPI Narrative BLANCA SHARMA is a 76-year-old male who presents to the ED at [facility] on 09/14/2021 with a chief complaint of right lower extremity cellulitis and fever. Patient reports that for the past 3 days he has been not icing that his right leg has gotten progressively more swollen, red and painful and that he has also developed a seeping wound on the lateral aspect of the right lower extremity. Patient also reports ongoing fever for the past 3 days. Denies chest pain, shortness of breath, palpitations, hemoptysis, sputum production, chills, N/V/D. Past medical history is significant for right lower extremity DVT, for which she is chronically anticoagulated on warfarin. Patient has been fully vaccinated against COVID-19. Vital signs on presentation to the ED was temperature of 101.7 ?F, HR of 96, BP of 153/63, RR of 20 and is currently satting 98% on room air. CBC demonstrates a mild leukocytosis at 1 1.7, hemoglobin is 10.4 and platelets are 184,000. BMP shows mildly elevated creatinine at 2.05. Chest x-ray is unremarkable and does not demonstrate any acute cardiopulmonary process. Blood cultures pending. Patient was initiated on Unasyn in the ED, for which he reports his symptoms have been improving. 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 Idiopathic chronic venous hypertension of right leg with ulcer Lymphedema of left lower extremity Lymphedema of right lower extremity Morbid obesity due to excess calories Obesity RAAD (obstructive sleep apnea) Pain in left leg Pain in right leg Pulmonary artery hypertension Pulmonary embolism Pulmonary embolism Transient global amnesia Venous stasis dermatitis Home Medications allopurinol 300 mg PO DAILY 09/11/14 [History Last Taken 09/13/21] furosemide 40 mg PO DAILY 09/11/14 [History Last Taken 09/13/21] lisinopril 20 mg PO DAILY 09/11/14 [History Last Taken 09/13/21] cholecalciferol (vitamin D3) 5,000 unit PO DAILY 09/14/21 [History Last Taken 09/13/21] simvastatin 20 mg PO QHS 09/14/21 [History Last Taken 09/13/21] warfarin 5 mg PO DAILY 09/14/21 [History Last Taken 09/13/21] Allergy/AdvReac Type Severity Reaction Status Date / Time No Known Allergies Allergy Verified 09/14/21 13:03 Family History Father Heart disease Father Diabetes Heart disease Surgical History Status post adenoidectomy Surgical History no surgical history no surgical history Social History Smoking Status: Light Smoker (<10/day) Tobacco: How many years used: 5 how long ago did patient quit smokin years ago alcohol intake: current alcohol intake frequency: holidays/special occasions only substance use type: does not use ROS Constitutional Constitutional: Reports fever(s); Denies anorexia, change in weight, chills, fatigue, malaise, night sweats, weakness or other Eyes Eyes: Denies blurry vision, change in eye color, change in vision, discharge from eye(s), double vision, erythema, eye pain, loss of vision or other ENT HEENT: Denies abnormal hearing, dysphagia, ear pain, epistaxis, headache(s), hearing loss, nasal congestion, nasal discharge, post nasal drip, sinus pressure, sore throat or other Cardiovascular Cardiovascular: Denies chest pain, claudication, dyspnea on exertion, edema, lightheadedness, orthopnea, palpitations, paroxysmal nocturnal dyspnea, rapid heart rate, syncope or other Respiratory/Chest Respiratory/Chest: Denies cough, dyspnea, excessive phlegm production, hemoptysis, productive cough, shortness of breath at rest, shortness of breath with exertion, wheezing or other Gastrointestinal Gastrointestinal: Denies abdominal pain, coffee ground emesis, constipation, diarrhea, dyspepsia, hematemesis, hematochezia, loose stools, melena, nausea, vomiting or other Genitourinary Genitourinary: Denies burning urination, difficulty urinating, dysuria, hematuria, nocturia, urinary frequency, urinary hesitancy, urinary incontinence, urinary urgency or other Musculoskeletal Musculoskeletal: Denies arthralgias, back pain, joint pain, joint stiffness, joint swelling, myalgias, neck pain or other Neurologic Neurologic: Denies abnormal gait, abnormal speech, confusion, disequilibrium, dizziness, focal weakness, headache(s), numbness, paresthesias, seizure-like activity, seizures, syncope, tingling, tremor(s) or other Psychiatric Psychiatric: Denies anxiety, depression, homicidal ideation, suicidal ideation or other Endocrine Endocrinology: Denies change in body appearance, cold intolerance, excessive sweating, heat intolerance, polydipsia, polyuria or other Hematologic/Lymphatic Hematologic/Lymphatic: Denies anemia, easy bleeding, easy bruising, lymphadenopathy or other Allergic/Immunologic Allergic/Immunologic: Denies rhinitis, hives, eczemia, asthma or other Vital Signs Vital Signs Vital Signs: 09/14/21 11:37 09/14/21 11:39 09/14/21 12:39 Temperature 101.7 F H 101.7 F H 101.7 F H Temperature Source Temporal Temporal Temporal Pulse Rate 96 96 93 Respiratory Rate 20 H 20 H 20 H Blood Pressure 150/63 H 150/63 H 152/72 H Blood Pressure Mean 92 92 98 Pulse Ox 98 98 98 Oxygen Delivery Method Room Air Room Air Room Air 09/14/21 13:00 09/14/21 13:19 09/14/21 14:57 Temperature 100 F H 100 F H 99 F Temperature Source Temporal Temporal Temporal Pulse Rate 93 94 Respiratory Rate 20 H 20 H Blood Pressure 152/72 H 140/82 H Blood Pressure Mean 98 101 Pulse Ox 98 95 Oxygen Delivery Method Room Air Room Air Room Air Weight Weight: 325 lb Body Mass Index (BMI) 44.0 Physical Exam Const alert and oriented x3 General Appearance: cooperative HEENT normocephalic, head/scalp atraumatic and hearing grossly normal bilaterally Eyes PERRL, EOMs intact bilaterally and conjunctivae normal Neck no lymphadenopathy, supple and no JVD Resp normal respiratory effort, no retractions, no use of accessory muscles and clear to auscultation bilaterally Cardio regular rate, regular rhythm, no murmurs and no JVD GI normal to inspection, nondistended, normoactive bowel sounds, soft to palpation and non-tender Extremity normal to inspection, full ROM and no clubbing, cyanosis or edema Extremity Narrative: See skin. Peripheral Pulses: Yes pulses 2+ throughout Skin Skin Narrative: Bilateral lower extremity lymphedema that is worse on the right. Right lower extremity is significant for swelling, redness and purulent draining wound on the lateral aspect of the RLE. Neuro CN's II-XII intact bilaterally Psych affect normal Results Lab / Micro Data Result Diagrams: 09/14/21 13:40 09/14/21 13:40 Labs: Laboratory Results - last 24 hr 09/14/21 13:40: WBC 11.7 H, RBC 3.30 L, Hgb 10.4 L, Hct 31.6 L, MCV 95.8 H, MCH 31.5, MCHC 32.9, RDW Std Deviation 46.8 H, RDW Coeff of Adiel 13.3, Plt Count 184, MPV 10.0, Immature Gran % (Auto) 0.900, Neut % (Auto) 91.2 H, Lymph % (Auto) 4.5 L, [place] % (Auto) 3.0, Eos % (Auto) 0.2, Baso % (Auto) 0.2, Absolute Neuts (auto) 10.7 H, Absolute Lymphs (auto) 0.52 L, Nucleated RBC % 0, Differential Comment , Platelet Estimate ADEQUATE, RBC Morphology NORM C+C 09/14/21 13:40: PT 17.0 H, INR 1.5 09/14/21 13:40: Sodium 137, Potassium 3.8, Chloride 104, Carbon Dioxide 26.0, Anion Gap 7, BUN 32 H, Creatinine 2.05 H, Estim Creat Clear Calc 33.65, Est GFR (MDRD) Af Amer 41 L, Est GFR (MDRD) Non-Af 34 L, BUN/Creatinine Ratio 15.6, Glucose 141 H, Calcium 9.1, Total Bilirubin 2.10 H, AST 24, ALT 15 L, Alkaline Phosphatase 116, Total Protein 7.7, Albumin 2.6 L, Globulin 5.1 H, Albumin/Globulin Ratio 0.5 L 09/14/21 13:40: Lactic Acid 2.0 Radiology Impression Chest X-Ray 09/14/21 13:20 IMPRESSION: There are no acute findings. Electronically Signed: Shelton Santizo MD at 14:21 EST , Service support , Assessment & Plan Assessment/Plan (1) Ulcer of right lower extremity with fat layer exposed: (2) Lymphedema: (3) Lower extremity edema: (4) Cellulitis of lower leg: PLAN: Patient is a 76-year-old male who presented to the ED at [facility] on 09/14/2021 with a chief complaint of right lower extremity pain, swelling and draining wound with fever. Patient will be admitted for management of right lower extremity cellulitis. 1) right lower extremity cellulitis in the setting of chronic bilateral lymphedema Patient presents with a 3-day history of worsening right lower extremity erythema, swelling and fever. Patient also has a purulent draining ulcer on the lateral aspect of the right ankle. Patient has chronic bilateral lymphedema, but presentation today is definitely worse on the right. Initial presentation to the ED was significant for fever and elevated respirations, although other vital signs are stable. WBCs are mildly elevated at 11.7. Lactic acid is within normal limits. Patient denies chest pain, shortness of breath, palpitations, hemoptysis, sputum production, chills, N/V/D or difficulty with urination. Plan; admit to [facility], initiate vancomycin, continue Unasyn, right lower extremity venous Doppler ordered, wound cultures ordered, blood cultures ordered, CBC and BMP in a.m., calorie controlled diet ordered, wound nurse ordered, PT/OT eval ordered, case management consult ordered. 2) MIKE on CKD stage IIIb Creatinine currently 2.05, baseline appears around 1.4. Likely prerenal due to poor oral intake. Plan; gentle IV fluids ordered, continue to monitor BMP. Hold lisinopril. 3) history of right lower extremity DVT Presentation as above. Patient is chronically anticoagulated on warfarin. We will continue warfarin and right lower extremity venous Doppler ordered. 4) HTN Stable, continue Lasix. Hold lisinopril due to #2. CODE STATUS: DNRCC-A, no intubation. DVT prophylaxis - chronically anticoagulated on warfarin Advance care planning: Patient's daughter Kayla is healthcare power of document review attorney. Patient is but him and his do not live together, although they seem to be pleasant in room. Patient seen by Jimmy Valencia PA-C, under the supervision of Dr. Paul. Documented by User: Dr. Ruddy Paul MD 09/14/21 16:08 HPI - General General Date of Admission: 09/14/21 Date of Service: 09/14/21 HPI Narrative This 76-year-old gentleman with history of chronic lymphedema and other comorbidities as listed below came to ER with 3 days of fever, increase in the right leg swelling and purulent seepage. Patient further said his right leg has been gradually swelling for last 4 months as compared to left but has gotten worse in the last 3 days with pain, redness and seepage. Patient also has peripheral arterial disease and chronic venous insufficiency. Last arterial Doppler study in December 2019 reports triphasic Doppler waveform at ankle levels bilaterally. Right ALEX 1.46, right distal brachial index 0.9 with left ALEX 1.44 suggestive of arterial calcification but no evidence of significant occlusive disease lower extremities bilaterally As per EMS he had a fever 101.7 Fahrenheit. Patient is started on antibiotic in ED. 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 Idiopathic chronic venous hypertension of right leg with ulcer Lymphedema of left lower extremity Lymphedema of right lower extremity Morbid obesity due to excess calories Obesity RAAD (obstructive sleep apnea) Pain in left leg Pain in right leg Pulmonary artery hypertension Pulmonary embolism Pulmonary embolism Transient global amnesia Venous stasis dermatitis Home Medications allopurinol 300 mg PO DAILY 09/11/14 [History Last Taken 09/13/21] furosemide 40 mg PO DAILY 09/11/14 [History Last Taken 09/13/21] lisinopril 20 mg PO DAILY 09/11/14 [History Last Taken 09/13/21] cholecalciferol (vitamin D3) 5,000 unit PO DAILY 09/14/21 [History Last Taken 09/13/21] simvastatin 20 mg PO QHS 09/14/21 [History Last Taken 09/13/21] warfarin 5 mg PO DAILY 09/14/21 [History Last Taken 09/13/21] Allergy/AdvReac Type Severity Reaction Status Date / Time No Known Allergies Allergy Verified 09/14/21 13:03 Family History Father Heart disease Father Diabetes Heart disease Surgical History Status post adenoidectomy Surgical History no surgical history Social History Smoking Status: Light Smoker (<10/day) Tobacco: How many years used: 5 how long ago did patient quit smokin years ago alcohol intake: current alcohol intake frequency: holidays/special occasions only substance use type: does not use Physical Exam Narrative General: Alert, Oriented x3, Cooperative, BMI 44.1 kg/m? morbid obesity HEENT: Atraumatic, PERRLA, EOMI, Normocephalic Oral: No Gingival or Mucosal Lesions/ Ulcerations Neck: Supple, No JVD, Negative Carotid Bruits Lungs: Air entry diminished in bilateral lung bases. No crepitation/rhonchi Cardiovascular: Normal rate and rhythm, Normal S1, Normal S2, no murmur. Abdomen: Bowel Sounds Present, Soft, Non Tender, Non-Distended : No renal angle tenderness. No suprapubic tenderness. Extremities: Bilateral lower extremity lymphedema, right more than left. C apillary Refill Less than 3 Seconds Skin: Purulent seepage from the right lower leg. Erythema, induration, increased local temperature and tenderness present in right leg. Musculoskeletal: Tenderness of right leg. Bilateral knee and hip joints arthritis. Neurological: Cranial nerves II-XII grossly intact, DTR 2+/4 Psych/Mental Status: Normal Affect, Appropriate. Results Lab / Micro Data Result Diagrams: 09/14/21 13:40 09/14/21 13:40 Assessment & Plan Assessment/Plan (1) Lymphedema: (2) Cellulitis of lower leg: PLAN: This patient was seen in conjunction with MIRTA Clay. I have independently interviewed and examined the patient and reviewed pertinent history, examination findings, laboratory and plan of management. I have reviewed the note and agree with the documented findings with the few additional points. In brief, patient is 76-year-old morbid obesity gentleman is being admitted for right lower extremity cellulitis with history of chronic bilateral lower extremity lymphedema. He had an ulcer in the right leg. Both lower extremities are deformed because of lymphedema, arthritis. Venous Doppler is ordered. IV vancomycin and Unasyn. Blood cultures x2 ordered. Deep wound culture, MRSA nasal screen and wound. Wound nurse consult. Lactic acid normal limit. MIKE on CKD stage IIIb: Creatinine is increased as mentioned above. Gentle IV fluid with history of lymphedema. Hold nephrotoxic medications. Patient has history of right lower extremity DVT and is on warfarin. Other comorbidities as mentioned above. Living will/advanced directive/end of life care: Patient does not have living will or advanced directive or designated power of document review attorney of health. He said his daughter will be next to kin. After discussion of benefits/risks procedures involved with full code, DNR CC arrest and DNR CC, the patient opted for DNR-CC Arrest with no intubation Patient does not want artificial life support including intubation, tube feed, ventilator and/chest compression, central venous catheter, vasopressor and DC shock if needed Total time spent in [id number] encounter in discussion of advanced directive 16 minutes. I have discussed my assessment with MIRTA Clay and orders have been reviewed. Charges/Coding Visit Charges Inpatient E&M: 14115 Init Hosp L3 Procedures Hospitalists Procedures: 28032 Advncd Care Plan 30 Min
--- NOTE | 2021-09-14 16:14 | CHAPLAIN ---
Type of Pastoral Visit _x__ Initial Visit ___ Follow-up Visit ___ On-call Visit ___ General Patient Visit ___ Spiritual Assessment ___ Family Conference ___ Bereavement ___ Rapid Response ___ Code Blue ___ Other (describe below) Pastoral Care Referral From ___ Patient ___ Family ___ Nurse ___ Physician ___ Practical Nursing Faculty ___ Soldering Machine Operator Automatic _x__ Other (describe below) Sacrament/Intervention _x__ Active listening ___ Anointing ___ Samaritan ___ Bereavement ___ Communion ___ Chelsie exploration ___ ___ Life review _x__ Prayer ___ Reconciliation ___ Sacrament of Sick _x__ Supportive presence ___ Wedding ___ Other (describe below) Pastoral Comments clergy called into this office to request a visit to this patient in ED; met with patient and spouse; offered support, listening ear, and prayer; gave water as requested; patient request follow up visit tomorrow as he is to be admitted for overnight stay
[2021-09-14 17:55] LABS: Reflex Lactate? Y
[2021-09-14] MEDS: 0.9% Normal Saline 1,000 ML 75 ML IV (18:47)
--- NOTE | 2021-09-14 19:44 | PCM.RX.CS ---
Consult Pharmacy has been consulted to manage selected antiobiotic: Vancomycin Type of Consult: New start Suspected Infection: Skin/Soft tissue Prior Doses of Antibiotics Received/Current Regimen: Received 2000mg iv x 1 on 09.14.21. Labs: Sodium 137 mmol/L (136-145) 09/14/21 13:40 Potassium 3.8 mmol/L (3.5-5.1) 09/14/21 13:40 Chloride 104 mmol/L (98-107) 09/14/21 13:40 Carbon Dioxide 26.0 mmol/L (21.0-32.0) 09/14/21 13:40 Anion Gap 7 (5-15) 09/14/21 13:40 BUN 32 mg/dL (7-18) H 09/14/21 13:40 Creatinine 2.05 mg/dL (0.70-1.30) H 09/14/21 13:40 Est GFR (MDRD) Af Amer 41 mL/min (>60) L 09/14/21 13:40 Est GFR (MDRD) Non-Af 34 mL/min (>60) L 09/14/21 13:40 BUN/Creatinine Ratio 15.6 RATIO (10-20) 09/14/21 13:40 Glucose 141 mg/dL (74-106) H 09/14/21 13:40 Weight used for dosin.5 kg Estimated Creatinine Clearance: 34 ml/min Goal Trough: 15-20 mcg/mL Pharmacy Plan for Drug Dosing: Will begin 1500mg iv q24h per protocol. Trough level ordered for 09.17.21 before 4th dose. Pharmacy Service will continue to monitor and adjust dosing as required. Follow-Up Labs: Trough Vancomycin - 09.17.21@1830 before 1900 dose
[2021-09-14] MEDS: Atorvastatin Calcium 10 MG Tablet PO (22:59)
[2021-09-14] MEDS: Nystatin Powder 15gm Bottle 1 APPLIC TOPICAL (22:59)
[2021-09-14] MEDS: Menthol/Lanolin/Calamine/Znox 113 GM Tube 1 APPLIC TOPICAL (23:00)
[2021-09-15] VITALS (7 sets, daily range): BP systolic 113–122; BP diastolic 45–87; PULSE 62–79; RESP 16–18; TEMP 36.9–37.6; O2SAT 90–95
[2021-09-15] MEDS: Menthol/Lanolin/Calamine/Znox 113 GM Tube 1 APPLIC TOPICAL ×3 (04:50→21:32)
[2021-09-15 06:35] LABS: Absolute Lymphocyte Count 0.61 X10^3/uL (0.83-4.51); Basophil# 0.03 X10^3/uL; Basophil% 0.4 % (0-1); Eosinophil# 0.11 X10^3/uL; Eosinophils% 1.3 % (0-5); Hematocrit 27.1 % (40-54); Lymphocyte # 0.61 X10^3/ul (0.83-4.51); Lymphocyte % 7.4 % (19-41); Mean Corp Hgb Conc 33.2 g/dL (32-36); Mean Corpuscular Hgb 31.7 pg (27.0-32.0); Mean Corpuscular Volume 95.4 fL (80-94); Mean Platelet Vol. 9.6 fl (6.2-12.0); Monocyte# 0.45 X10^3/uL; Monocyte% 5.4 % (0-10); NRBC Flagged by Analyzer 0 % (0-5); Neutrophil # 6.95 X10^3/uL (2.7-7.7); Neutrophil % 83.8 % (47-70); Platelet Count 144 K/mm3 (150-450); RBC Distribution Width CV 13.2 % (11.6-14.6); RBC Distribution Width SD 46.9 fl (35.1-43.9); Red Blood Count 2.84 M/mm3 (4.6-6.2); White Blood Count 8.3 K/mm3 (4.4-11.0)
[2021-09-15 07:05] LABS: Lactic Acid 0.9 mmol/L (0.4-1.9)
[2021-09-15 07:07] LABS: Anion Gap 7 (5-15); BUN 34 mg/dL (7-18); BUN/Creat Ratio 19.7 RATIO (10-20); Calcium,Total 8.5 mg/dL (8.5-10.1); Chloride 107 mmol/L (98-107); Creatinine, Serum 1.73 mg/dL (0.70-1.30); EST Glomerular Filtration Rate 41 mL/min (>60); Est Glom Filt Rate - Afr Amer 50 mL/min (>60); Estimated Creatinine Clearance 39.87 ml/min; Glucose 83 mg/dL (74-106); Potassium 3.4 mmol/L (3.5-5.1); Sodium Level 137 mmol/L (136-145)
[2021-09-15 08:35] LABS: International Normalized Ratio 1.7; Prothrombin Time (Protime)PT. 19.2 SECONDS (11.7-14.9)
--- NOTE | 2021-09-15 08:36 | PCS.PANDOC ---
PANDEMIC DOCUMENTATION INITIATED: Date: 06/13/2021 Time: 190
[2021-09-15] MEDS: 0.9% Normal Saline 1,000 ML 75 ML IV (09:30)
[2021-09-15] MEDS: Nystatin Powder 15gm Bottle 1 APPLIC TOPICAL ×2 (09:30→21:33)
--- NOTE | 2021-09-15 09:30 | WOUNDNOTE ---
wound photo: right lateral lower leg
[2021-09-15] MEDS: Furosemide 40 MG Tablet PO ×2 (09:34→21:32)
[2021-09-15] MEDS: Lisinopril 20 MG Tablet PO (09:39)
--- NOTE | 2021-09-15 10:40 | CASEMGMT ---
RADHA WHITLEY Face to Face with patient for initial transition planning/care coordination assessment. RADHA WHITLEY introduced self and role at [facility]. Patient sitting in chair, alert and oriented, at bedside. Patient willing to participate in assessment and is able to answer all questions appropriately. Care providers, pharmacy, and demographics verified. Patient wishes to discharge home and would like [facility] for SN and therapy. Patient prefers [facility] as he has had them in the past. Patient states he has no further needs or concerns at this time. CM to follow for discharge planning needs that may arise. PCP: Em Specialists: Jose, hydro mechanic; Sami, pigs feet finisher Preferred Pharmacy: [facility], [facility] retail at discharge Insurance: [employer] Prescription Benefit: yes Living Will/HPOA: none, patient interested in completing, SW made aware. LNOK: Living Arrangements: Patient lives with in a first floor apartment with no steps to enter. Patient states he is independent for self care. Transportation: self, daughters, neighbor DME/HHC: patient states he has cane and grab bars at home. Patient is interested in [facility]. Patient has previously had [facility]HC in the past. Patient states he prefers [facility] for DME. RADHA WHITLEY received script for [facility] and will assist with walker setup on day of discharge. RADHA WHITLEY made referral to [facility] and awaiting acceptance. Disposition Plan: Patient to discharge home with [facility], family support, and follow-up plans in place. Nataly MIGUEL, RN, CM
[2021-09-15 11:26] LABS: M R Staph aureus DNA By PCR Negative (Negative); Probe Check PASS; Specimen Processing Control PASS; Staph aureus DNA By PCR POSITIVE (Negative)
--- NOTE | 2021-09-15 11:48 | CASEMGMT ---
RADHA WHITLEY received call back from Taylor at [facility]. [facility] is able to accept patient with planned start of care for Sunday. RADHA WHITLEY updated patient. Patient had no further questions or concerns at this time.
--- NOTE | 2021-09-15 12:50 | PN.HOSP_ITS ---
Subjective Subjective Has had chronic swelling in LE for years. More recently noted redness on RLE on foot. Does not weigh himself daily, therefore, does not know if he has put on weight. Objective Data Objective Data Vital Signs: Vital Signs Temp Pulse Resp BP Pulse Ox 37.0 C 74 16 119/45 L 93 09/15/21 09:38 09/15/21 09:38 09/15/21 09:38 09/15/21 09:38 09/15/21 09:38 Oxygen Delivery Method Room Air Weight: 163.5 kg Body Mass Index (BMI) 48.8 Intake & Output: Intake and Output for Last 24 Hours 09/13/21 09/14/21 09/15/21 23:59 23:59 23:59 Intake Total 652 / 652 1224 / 1224 Balance 652 / 652 1224 / 1224 Lab / Micro Data Result Diagrams: 09/15/21 06:24 09/15/21 06:24 Labs: Laboratory Results - last 24 hr 09/14/21 13:40: WBC 11.7 H, RBC 3.30 L, Hgb 10.4 L, Hct 31.6 L, MCV 95.8 H, MCH 31.5, MCHC 32.9, RDW Std Deviation 46.8 H, RDW Coeff of Adiel 13.3, Plt Count 184, MPV 10.0, Immature Gran % (Auto) 0.900, Neut % (Auto) 91.2 H, Lymph % (Auto) 4.5 L, [place] % (Auto) 3.0, Eos % (Auto) 0.2, Baso % (Auto) 0.2, Absolute Neuts (auto) 10.7 H, Absolute Lymphs (auto) 0.52 L, Nucleated RBC % 0, Differential Comment , Platelet Estimate ADEQUATE, RBC Morphology NORM C+C 09/14/21 13:40: PT 17.0 H, INR 1.5 09/14/21 13:40: Sodium 137, Potassium 3.8, Chloride 104, Carbon Dioxide 26.0, Anion Gap 7, BUN 32 H, Creatinine 2.05 H, Estim Creat Clear Calc 33.65, Est GFR (MDRD) Af Amer 41 L, Est GFR (MDRD) Non-Af 34 L, BUN/Creatinine Ratio 15.6, Glucose 141 H, Calcium 9.1, Total Bilirubin 2.10 H, AST 24, ALT 15 L, Alkaline Phosphatase 116, Total Protein 7.7, Albumin 2.6 L, Globulin 5.1 H, Albumin/Globulin Ratio 0.5 L 09/14/21 13:40: Lactic Acid 2.0 09/14/21 19:10: Lactic Acid Cancelled 09/15/21 06:24: WBC 8.3, RBC 2.84 L, Hgb 9.0 L, Hct 27.1 L, MCV 95.4 H, MCH 31.7, MCHC 33.2, RDW Std Deviation 46.9 H, RDW Coeff of Adiel 13.2, Plt Count 144 L, MPV 9.6, Immature Gran % (Auto) 1.700 H, Neut % (Auto) 83.8 H, Lymph % (Auto) 7.4 L, [place] % (Auto) 5.4, Eos % (Auto) 1.3, Baso % (Auto) 0.4, Absolute Neuts (auto) 7.0, Absolute Lymphs (auto) 0.61 L, Nucleated RBC % 0 09/15/21 06:24: Sodium 137, Potassium 3.4 L, Chloride 107, Carbon Dioxide 23.0, Anion Gap 7, BUN 34 H, Creatinine 1.73 H, Estim Creat Clear Calc 39.87, Est GFR (MDRD) Af Amer 50 L, Est GFR (MDRD) Non-Af 41 L, BUN/Creatinine Ratio 19.7, Glucose 83, Calcium 8.5 09/15/21 06:24: PT 19.2 H, INR 1.7 09/15/21 06:24: Lactic Acid 0.9 09/15/21 08:35: S.aureus Protein A PCR POSITIVE H, MRSA (PCR) Negative Radiography Diagnostic Testing: Radiology Impression Chest X-Ray 09/14/21 13:20 IMPRESSION: There are no acute findings. Electronically Signed: Shelton Santizo MD at 14:21 EST , Service support , Venous Doppler Study 09/14/21 15:18 Interpretation Summary Deep veins of the lower extremities are bilaterally patent and compressible segmentally. There is no evidence of deep vein thrombosis on either side. Valvular competence appears intact within the proximal deep venous systems bilaterally. The great saphenous veins appear bilaterally patent and compressible segmentally. Ordering Physician: Jimmy Valenica Referring Physician: MEME BROCK Performed By: Carmen Ryan, SAUL, RVT Physical Exam Const alert Constitutional Narrative: up in chair. NAD. HEENT head/scalp atraumatic Head and Scalp: normocephalic Extremity Extremity Narrative: marked edema bilateral LE. wrapped and kerlixed. Skin Skin Narrative: erythema of right toes. noted ulcer on posterior right leg (Ramona Cook's pictures) Assessment & Plan Assessment/Plan (1) Cellulitis of lower leg: (2) Ulcer of right lower extremity with fat layer exposed: PLAN: 1. Right lower extremity cellulitis * complicated by morbid obesity, lymphedema * may have begun from ulceration * on amp/SB and vanc * follow up cultures 2. right LE ulcer * likely 2/2 pressure and venous stasis * continue wound care 3. Lymphedema * complicates care and recovery from cellulitis * weight appears stable from 2019 * increase furosemide to BID * complicated by pulmonary HTN 4. RAAD * noncompliant with CPAP. Did not tolerate * recommend follow up with pulm for possible repeat PSG and whether or not he may be a candidate for BiPAP. 5. 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
--- NOTE | 2021-09-15 13:17 | NURSING ---
BLE DRESSINGS REMOVED D/T INCONTINENCE AND REWRAPPED W/FRESH KERLIX TO RLE AND NEW [place]GENE WRAPS TO BLE.
--- NOTE | 2021-09-15 14:37 | CHAPLAIN ---
Type of Pastoral Visit ___ Initial Visit _x__ Follow-up Visit ___ On-call Visit ___ General Patient Visit ___ Spiritual Assessment ___ Family Conference ___ Bereavement ___ Rapid Response ___ Code Blue ___ Other (describe below) Pastoral Care Referral From _x__ Patient ___ Family ___ Nurse ___ Physician ___ Primary Therapist ___ Student Life Dean ___ Other (describe below) Sacrament/Intervention _x__ Active listening ___ Anointing ___ Temple ___ Bereavement ___ Communion ___ Chelsie exploration ___ _x__ Life review _x__ Prayer ___ Reconciliation ___ Sacrament of Sick _x__ Supportive presence ___ Wedding ___ Other (describe below) Pastoral Comments
[2021-09-15] MEDS: Atorvastatin Calcium 10 MG Tablet PO (21:32)
[2021-09-16 03:12] VITALS: BP 109/61; PULSE 73; RESP 18; TEMP 36.7; O2SAT 95
[2021-09-16] MEDS: 0.9% Normal Saline 1,000 ML 75 ML IV ×2 (03:29→17:18)
[2021-09-16] MEDS: Menthol/Lanolin/Calamine/Znox 113 GM Tube 1 APPLIC TOPICAL ×3 (05:58→21:18)
[2021-09-16 06:42] LABS: Absolute Lymphocyte Count 0.56 X10^3/uL (0.83-4.51); Absolute Neutrophil Count 5.1 X10^3/uL (2.0-7.7); Basophil# 0.03 X10^3/uL; Basophil% 0.5 % (0-1); Eosinophil# 0.29 X10^3/uL; Eosinophils% 4.5 % (0-5); Hemoglobin 9.6 g/dL (13.0-16.5); Lymphocyte # 0.56 X10^3/ul (0.83-4.51); Lymphocyte % 8.7 % (19-41); Mean Corp Hgb Conc 33.1 g/dL (32-36); Mean Corpuscular Hgb 31.5 pg (27.0-32.0); Mean Corpuscular Volume 95.1 fL (80-94); Mean Platelet Vol. 9.8 fl (6.2-12.0); Monocyte% 6.2 % (0-10); NRBC Flagged by Analyzer 0 % (0-5); Neutrophil # 5.11 X10^3/uL (2.7-7.7); POSITIVE DIFFERENTIAL YES; Platelet Count 172 K/mm3 (150-450); RBC Distribution Width CV 13.4 % (11.6-14.6); RBC Distribution Width SD 46.9 fl (35.1-43.9); Red Blood Count 3.05 M/mm3 (4.6-6.2); White Blood Count 6.5 K/mm3 (4.4-11.0)
[2021-09-16 06:47] LABS: Differential Indicated SCAN CRITERIA MET
[2021-09-16 06:58] LABS: ALB/GLOB Ratio 0.4 RATIO (0.9-2.4); AST(SGOT) 44 U/L (15-37); Alanine Aminotransfer ALT/SGPT 17 U/L (16-61); Albumin, Serum 1.8 g/dL (3.2-5.0); Alkaline Phosphatase 102 U/L (45-117); Anion Gap 7 (5-15); BUN 37 mg/dL (7-18); BUN/Creat Ratio 22.4 RATIO (10-20); Calcium,Total 8.5 mg/dL (8.5-10.1); Chloride 106 mmol/L (98-107); Creatinine, Serum 1.65 mg/dL (0.70-1.30); EST Glomerular Filtration Rate 43 mL/min (>60); Est Glom Filt Rate - Afr Amer 52 mL/min (>60); Globulin 4.6 g/dL (2.2-4.2); Glucose 87 mg/dL (74-106); Potassium 3.3 mmol/L (3.5-5.1); Protein, Total 6.4 g/dL (6.4-8.2); Sodium Level 138 mmol/L (136-145)
[2021-09-16 07:04] LABS: International Normalized Ratio 1.8; Prothrombin Time (Protime)PT. 20.6 SECONDS (11.7-14.9)
[2021-09-16 07:25] VITALS: O2SAT 93
[2021-09-16 08:18] VITALS: BP 113/67; PULSE 75; RESP 20; TEMP 36.9; O2SAT 93
[2021-09-16] MEDS: Nystatin Powder 15gm Bottle 1 APPLIC TOPICAL ×2 (08:56→21:17)
[2021-09-16] MEDS: Lisinopril 20 MG Tablet PO ×2 (08:58)
[2021-09-16] MEDS: Furosemide 40 MG Tablet PO ×2 (09:05→21:17)
--- NOTE | 2021-09-16 10:47 | PN.HOSP_ITS ---
Subjective Subjective right leg is feeling better. Objective Data Objective Data Vital Signs: Vital Signs Temp Pulse Resp BP Pulse Ox 36.9 C 75 20 H 113/67 93 09/16/21 08:18 09/16/21 08:18 09/16/21 08:18 09/16/21 08:18 09/16/21 08:18 Oxygen Delivery Method Room Air Weight: 164.4 kg Body Mass Index (BMI) 48.8 Intake & Output: Intake and Output for Last 24 Hours 09/14/21 09/15/21 09/16/21 23:59 23:59 23:59 Intake Total 652 / 652 2866 / 3106 360 / 360 Output Total 1100 / 1100 Balance 652 / 652 2866 / 2906 -740 / -740 Medical Nutrition Assessment Dietitian: Malnutrition Criteria Met Start: 09/15/21 16:02 Freq: Status: Active Protocol: Document 09/15/21 16:02 [facility] (Rec: 09/15/21 16:03 [facility] [id number]) Nutrition Malnutrition Evidence of Malnutrition Exists Yes Malnutrition (severe): Chronic Evidenced By Suboptimal Energy Intake ( Severe),Physical Changes ( Severe) Clinical Problem Chronic Disease or Condition Related Malnutrition Etiology related to food or nutrition related knowledge deficit concerning amount of energy/ nutrients required Signs/Symptoms as evidenced by 24 hr recall and admitted intake estimated at < 50% of estimated needs for >= 1 month, age related physical debility/ reduced muscle strength overall, statements of disinterest in eating sufficient energy/ protein to maintain healthy weight, edema/severe increase of fluid accumulation observed in bilateral lower extremities. Status Active Problem Recommendation Dietitian Recommendations/Changes Will adjust diet to 2500 kcals to meet RMR of UBW /adjusting for suspected weight increase from edema/ fluid weight. Will add low Na for medical issues. Will request daily weights to monitor edema weight. Added Wilder packet BID as medication, not diet, administered by nursing. Lab / Micro Data Result Diagrams: 09/16/21 06:15 09/16/21 06:15 Labs: Laboratory Results - last 24 hr 09/15/21 08:35: S.aureus Protein A PCR POSITIVE H, MRSA (PCR) Negative 09/16/21 06:15: PT 20.6 H, INR 1.8 09/16/21 06:15: WBC 6.5, RBC 3.05 L, Hgb 9.6 L, Hct 29.0 L, MCV 95.1 H, MCH 31.5, MCHC 33.1, RDW Std Deviation 46.9 H, RDW Coeff of Adiel 13.4, Plt Count 172, MPV 9.8, Immature Gran % (Auto) 1.100 H, Neut % (Auto) 79.0 H, Lymph % (Auto) 8.7 L, [place] % (Auto) 6.2, Eos % (Auto) 4.5, Baso % (Auto) 0.5, Absolute Neuts (auto) 5.1, Absolute Lymphs (auto) 0.56 L, Nucleated RBC % 0 09/16/21 06:15: Sodium 138, Potassium 3.3 L, Chloride 106, Carbon Dioxide 25.0, Anion Gap 7, BUN 37 H, Creatinine 1.65 H, Estim Creat Clear Calc 41.80, Est GFR (MDRD) Af Amer 52 L, Est GFR (MDRD) Non-Af 43 L, BUN/Creatinine Ratio 22.4 H, Glucose 87, Calcium 8.5, Total Bilirubin 0.90, AST 44 H, ALT 17, Alkaline Phosphatase 102, Total Protein 6.4, Albumin 1.8 L, Globulin 4.6 H, Albumin/Globulin Ratio 0.4 L Micro: Microbiology 09/15/21 08:35 Wound - Leg, Right Gram Stain - Final 09/14/21 13:45 Blood Culture (Wb) - Left Hand Blood Culture - Preliminary Gram negative faraz Physical Exam Const alert and no apparent distress Extremity Extremity Narrative: bilateral LE edema R>L. Skin Skin Narrative: superficial right posterior leg ulceration. Mild erythema of right lower extremity. Sloughing skin bilateral LE. Neuro Sensorium / Orientation: awake and alert Psych affect normal Assessment & Plan Assessment/Plan (1) Cellulitis of lower leg: (2) Ulcer of right lower extremity with fat layer exposed: (3) Bacteremia: PLAN: 1. Right lower extremity cellulitis * improving * complicated by morbid obesity, lymphedema * may have begun from ulceration * on amp/SB and vanc * follow up cultures 2. right LE ulcer * likely 2/2 pressure and venous stasis * continue wound care 3. bacteremia * Gram negative rods * suspect 2/2 ulcer/cellulitis * follow up cultures 4. Lymphedema * complicates care and recovery from cellulitis * weight appears stable from 2019 * increase furosemide to BID * complicated by pulmonary HTN 5. RAAD * noncompliant with CPAP. Did not tolerate * recommend follow up with pulm for possible repeat PSG and whether or not he may be a candidate for BiPAP. 6. 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 CKD3B * stable * monitor Charges/Coding Visit Charges Inpatient E&M: 29009 Subs Hosp L2
--- NOTE | 2021-09-16 13:45 | CASEMGMT ---
Social Work Per RNCM, pt has services through [facility]. Phone call to [facility] and spoke with Kim in coverage and notifed that pt has been admitted. Pt case repairer is Mere Carrillo [phone]. Pt has a lifeline and had meals at one time but pt cancelled in January. Pt is eligible for 4 hours of aid services a week however [facility] has not been able to find coverage at this time. SW provided name and number of case repairer to pt and his . SW also assisted pt in completing advance directives. Pt naming his daughter Carmen as HCPOA and also completed a living will. Copy placed in chart and originals given to pt. PACO Solis
--- NOTE | 2021-09-16 14:09 | CASEMGMT ---
Addendum entered by Wan Tamez 09/16/21 16:20: Walker has been delivered to pt's room Addendum entered by Wan Tamez 09/16/21 15:35: Per Taylor @ [facility], SOC moved to Sunday, as pt most likely will not be discharging today. Pt made aware. Original Note: RADHA WHITLEY NOTE: Per Dr Waite, awaiting cultures and pt may not be ready for discharge until tomorrow. TC to Taylor @ [facility] and she was made aware. Pt would like a walker. Script faxed to [facility]. TC to [facility] and they will deliver walker today. Pt/ made aware, if able to d/c home today, SOC for [facility] is tomorrow, but if he does not discharge home today, SOC will be changed to a different day, as they cannot do SOC on same day as discharge. Pt/ voice understanding. Jay MIGUEL RN, CM
[2021-09-16 14:25] VITALS: BP 128/70; PULSE 69; RESP 16; TEMP 36.9; O2SAT 94
--- NOTE | 2021-09-16 16:25 | NURSING ---
patient 96% on 5L at rest. Ambulated patient to the restroom on 5L pt was 99%. After some self care in the bathroom pt got very short of breath but maintained O2 saturation at 99%. Increased O2 to 7L for patient comfort. Ambulated patient back to bed on 7L, pt was 96%. Left patient on 7L to recover in bed, will decrease when pt comfortable.
[2021-09-16 20:25] VITALS: BP 135/70; PULSE 84; RESP 22; TEMP 36.9; O2SAT 93
[2021-09-16] MEDS: Atorvastatin Calcium 10 MG Tablet PO (21:17)
[2021-09-17 02:00] VITALS: BP 131/69; PULSE 78; RESP 16; TEMP 36.6; O2SAT 94
[2021-09-17] MEDS: Menthol/Lanolin/Calamine/Znox 113 GM Tube 1 APPLIC TOPICAL ×2 (06:23→14:56)
[2021-09-17 07:50] LABS: Absolute Lymphocyte Count 0.52 X10^3/uL (0.83-4.51); Absolute Neutrophil Count 4.5 X10^3/uL (2.0-7.7); Basophil# 0.02 X10^3/uL; Basophil% 0.3 % (0-1); Eosinophil# 0.43 X10^3/uL; Eosinophils% 7.3 % (0-5); Hematocrit 30.7 % (40-54); Hemoglobin 9.9 g/dL (13.0-16.5); Lymphocyte # 0.52 X10^3/ul (0.83-4.51); Lymphocyte % 8.8 % (19-41); Mean Corp Hgb Conc 32.2 g/dL (32-36); Mean Corpuscular Hgb 30.4 pg (27.0-32.0); Mean Corpuscular Volume 94.2 fL (80-94); Mean Platelet Vol. 9.9 fl (6.2-12.0); Monocyte# 0.41 X10^3/uL; Monocyte% 6.9 % (0-10); NRBC Flagged by Analyzer 0 % (0-5); Neutrophil # 4.47 X10^3/uL (2.7-7.7); Neutrophil % 75.9 % (47-70); POSITIVE DIFFERENTIAL YES; Platelet Count 242 K/mm3 (150-450); RBC Distribution Width CV 13.2 % (11.6-14.6); RBC Distribution Width SD 45.4 fl (35.1-43.9); Red Blood Count 3.26 M/mm3 (4.6-6.2); White Blood Count 5.9 K/mm3 (4.4-11.0)
[2021-09-17 07:52] VITALS: BP 137/66; PULSE 64; RESP 18; TEMP 36.8; O2SAT 92
[2021-09-17 07:53] LABS: Differential Indicated SCAN CRITERIA MET
[2021-09-17 08:04] LABS: International Normalized Ratio 2.2; Prothrombin Time (Protime)PT. 23.8 SECONDS (11.7-14.9)
[2021-09-17 08:06] LABS: ALB/GLOB Ratio 0.4 RATIO (0.9-2.4); AST(SGOT) 53 U/L (15-37); Alanine Aminotransfer ALT/SGPT 23 U/L (16-61); Albumin, Serum 2.1 g/dL (3.2-5.0); Alkaline Phosphatase 143 U/L (45-117); Anion Gap 5 (5-15); BUN 34 mg/dL (7-18); BUN/Creat Ratio 20.9 RATIO (10-20); Calcium,Total 8.7 mg/dL (8.5-10.1); Chloride 109 mmol/L (98-107); Creatinine, Serum 1.63 mg/dL (0.70-1.30); EST Glomerular Filtration Rate 44 mL/min (>60); Est Glom Filt Rate - Afr Amer 53 mL/min (>60); Estimated Creatinine Clearance 42.32 ml/min; Globulin 5.1 g/dL (2.2-4.2); Glucose 119 mg/dL (74-106); Potassium 3.3 mmol/L (3.5-5.1); Protein, Total 7.2 g/dL (6.4-8.2); Sodium Level 140 mmol/L (136-145)
[2021-09-17 09:15] VITALS: O2SAT 94
[2021-09-17] MEDS: Nystatin Powder 15gm Bottle 1 APPLIC TOPICAL (09:54)
[2021-09-17] MEDS: Furosemide 40 MG Tablet PO ×2 (09:54→18:04)
[2021-09-17] MEDS: 0.9% Normal Saline 1,000 ML 75 ML IV ×2 (09:54→23:31)
--- NOTE | 2021-09-17 13:31 | PN.HOSP_ITS ---
Subjective Subjective No events overnight. Objective Data Objective Data Vital Signs: Vital Signs Temp Pulse Resp BP Pulse Ox 36.8 C 64 18 137/66 H 92 09/17/21 07:52 09/17/21 07:52 09/17/21 07:52 09/17/21 07:52 09/17/21 07:52 Oxygen Delivery Method Room Air Weight: 162 kg Body Mass Index (BMI) 48.8 Intake & Output: Intake and Output for Last 24 Hours 09/15/21 09/16/21 09/17/21 23:59 23:59 23:59 Intake Total 2866 / 3106 3232.75 / 3232.75 1860.75 / 1860.75 Output Total 1999 / 1999 1400 / 1400 Balance 2866 / 2906 1232.75 / 1232.75 460.75 / 460.75 Medical Nutrition Assessment Dietitian: Malnutrition Criteria Met Start: 09/15/21 16:02 Freq: Status: Active Protocol: Document 09/15/21 16:02 [facility] (Rec: 09/15/21 16:03 [facility] [id number]) Nutrition Malnutrition Evidence of Malnutrition Exists Yes Malnutrition (severe): Chronic Evidenced By Suboptimal Energy Intake ( Severe),Physical Changes ( Severe) Clinical Problem Chronic Disease or Condition Related Malnutrition Etiology related to food or nutrition related knowledge deficit concerning amount of energy/ nutrients required Signs/Symptoms as evidenced by 24 hr recall and admitted intake estimated at < 50% of estimated needs for >= 1 month, age related physical debility/ reduced muscle strength overall, statements of disinterest in eating sufficient energy/ protein to maintain healthy weight, edema/severe increase of fluid accumulation observed in bilateral lower extremities. Status Active Problem Recommendation Dietitian Recommendations/Changes Will adjust diet to 2500 kcals to meet RMR of UBW /adjusting for suspected weight increase from edema/ fluid weight. Will add low Na for medical issues. Will request daily weights to monitor edema weight. Added Wilder packet BID as medication, not diet, administered by nursing. Lab / Micro Data Result Diagrams: 09/17/21 06:50 09/17/21 06:50 Labs: Laboratory Results - last 24 hr 09/17/21 06:50: PT 23.8 H, INR 2.2 09/17/21 06:50: WBC 5.9, RBC 3.26 L, Hgb 9.9 L, Hct 30.7 L, MCV 94.2 H, MCH 30.4, MCHC 32.2, RDW Std Deviation 45.4 H, RDW Coeff of Adiel 13.2, Plt Count 242, MPV 9.9, Immature Gran % (Auto) 0.800, Neut % (Auto) 75.9 H, Lymph % (Auto) 8.8 L, [place] % (Auto) 6.9, Eos % (Auto) 7.3 H, Baso % (Auto) 0.3, Absolute Neuts (auto) 4.5, Absolute Lymphs (auto) 0.52 L, Nucleated RBC % 0 09/17/21 06:50: Sodium 140, Potassium 3.3 L, Chloride 109 H, Carbon Dioxide 26.0, Anion Gap 5, BUN 34 H, Creatinine 1.63 H, Estim Creat Clear Calc 42.32, Est GFR (MDRD) Af Amer 53 L, Est GFR (MDRD) Non-Af 44 L, BUN/Creatinine Ratio 20.9 H, Glucose 119 H, Calcium 8.7, Total Bilirubin 0.70, AST 53 H, ALT 23, Alkaline Phosphatase 143 H, Total Protein 7.2, Albumin 2.1 L, Globulin 5.1 H, Albumin/Globulin Ratio 0.4 L Micro: Microbiology 09/15/21 08:35 Wound - Leg, Right Gram Stain - Final 09/15/21 08:35 Wound - Leg, Right Wound Culture - Preliminary Staphylococcus aureus Gram negative faraz 09/14/21 13:45 Blood Culture (Wb) - Left Hand Blood Culture - Final Achromobacter xylosoxidans 09/14/21 13:40 Blood Culture (Wb) - Anticubital Right Blood Culture - Preliminary No growth in 48 hours. Physical Exam Const alert and no apparent distress HEENT Head and Scalp: normocephalic Resp normal respiratory effort, no retractions, no use of accessory muscles and clear to auscultation bilaterally Cardio regular rate, regular rhythm, S1 normal heart sound and S2 normal heart sound GI normal to inspection, nondistended, normoactive bowel sounds, soft to palpation, non-tender and non-distended Assessment & Plan Assessment/Plan (1) Cellulitis of lower leg: (2) Ulcer of right lower extremity with fat layer exposed: (3) Bacteremia: PLAN: 1. Right lower extremity cellulitis * improving * complicated by morbid obesity, lymphedema * may have begun from ulceration * on amp/SB and vanc * Cx showing S. aureus and GNR 2. right LE ulcer * likely 2/2 pressure and venous stasis * continue wound care 3. bacteremia * Achromobacter * suspect 2/2 ulcer/cellulitis 4. Lymphedema * complicates care and recovery from cellulitis * weight appears stable from 2019 * increase furosemide to BID * complicated by pulmonary HTN 5. RAAD * noncompliant with CPAP. Did not tolerate * recommend follow up with pulm for possible repeat PSG and whether or not he may be a candidate for BiPAP. 6. 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 CKD3B * stable * monitor Charges/Coding Visit Charges Inpatient E&M: 29689 Subs Hosp L2
--- NOTE | 2021-09-17 14:29 | CASEMGMT ---
JACKSON Note SW was advised that patient's wanted to speak to family welfare social work professor. JACKSON met with patient's , Tete, and she said that patient needs a raised toilet seat, washable chucks, depends and grabber for home. JACKSON advised her to call Mere at [facility] and request these items. SW remains available if needed. Plan: HOme with [facility] PERALTA
[2021-09-17 14:55] VITALS: BP 139/62; PULSE 75; RESP 18; TEMP 36.6; O2SAT 94
--- NOTE | 2021-09-17 15:01 | CASEMGMT ---
JACKSON Note SW left voice message for Mere Carrillo at [facility] and left voice mail that patient is not being discharged today and is requesting the following items: raised toilet seats, washable arias, depends and grabber and that patient is not being discharged today. JACKSON updated Naatly Sanon CM today regarding patient's request for items and this commercial insurance underwriter referring them to [facility]. Plan: Home with [facility] PERALTA
[2021-09-17] MEDS: Ondansetron 4 MG/2 ML Vial IV (17:49)
[2021-09-17] MEDS: 0.9% Saline Lock 10 ML Syringe IV (17:49)
[2021-09-17 19:21] LABS: Vancomycin, Trough Level 13.4 ug/mL (5.0-15.0)
[2021-09-17 20:19] VITALS: BP 146/67; PULSE 85; RESP 16; TEMP 36.8; O2SAT 97
[2021-09-17 20:26] VITALS: O2SAT 97
[2021-09-17] MEDS: Atorvastatin Calcium 10 MG Tablet PO (22:00)
--- NOTE | 2021-09-17 22:53 | PHA.PHARE_ITS ---
Consult Pharmacy has been consulted to manage selected antiobiotic: Vancomycin Type of Consult: Follow-up Labs: Sodium 140 mmol/L (136-145) 09/17/21 06:50 Potassium 3.3 mmol/L (3.5-5.1) L 09/17/21 06:50 Chloride 109 mmol/L (98-107) H 09/17/21 06:50 Carbon Dioxide 26.0 mmol/L (21.0-32.0) 09/17/21 06:50 Anion Gap 5 (5-15) 09/17/21 06:50 BUN 34 mg/dL (7-18) H 09/17/21 06:50 Creatinine 1.63 mg/dL (0.70-1.30) H 09/17/21 06:50 Est GFR (MDRD) Af Amer 53 mL/min (>60) L 09/17/21 06:50 Est GFR (MDRD) Non-Af 44 mL/min (>60) L 09/17/21 06:50 BUN/Creatinine Ratio 20.9 RATIO (10-20) H 09/17/21 06:50 Glucose 119 mg/dL (74-106) H 09/17/21 06:50 Vancomycin Trough 13.4 ug/mL (5.0-15.0) 09/17/21 18:21 Microbiology: Microbiology 09/15/21 08:35 Wound - Leg, Right Gram Stain - Final 09/15/21 08:35 Wound - Leg, Right Wound Culture - Preliminary Staphylococcus aureus Gram negative faraz 09/14/21 13:45 Blood Culture (Wb) - Left Hand Blood Culture - Final Achromobacter xylosoxidans 09/14/21 13:40 Blood Culture (Wb) - Anticubital Right Blood Culture - Pr eliminary No growth in 48 hours. Pharmacy Plan for Drug Dosing: Pharmacy Service will continue to monitor and adjust dosing as required. TROUGH 13.4 @ 24 HRS, INCREASE TO 1750 QD AND FOLLOW UP WITH TROUGH PRIOR TO 3RD DOSE Follow-Up Labs: Trough Vancomycin Labs to be done on [date and time ordered]: 09/20 @ 1830
[2021-09-18 02:45] VITALS: BP 153/67; PULSE 76; RESP 18; TEMP 36.8; O2SAT 94
[2021-09-18] MEDS: Menthol/Lanolin/Calamine/Znox 113 GM Tube 1 APPLIC TOPICAL ×3 (05:48→21:05)
[2021-09-18 08:11] VITALS: BP 139/66; PULSE 82; RESP 18; TEMP 36.9; O2SAT 92
[2021-09-18] MEDS: Furosemide 40 MG Tablet PO ×2 (10:02→16:45)
[2021-09-18] MEDS: Lisinopril 20 MG Tablet PO (10:02)
[2021-09-18] MEDS: Nystatin Powder 15gm Bottle 1 APPLIC TOPICAL ×2 (10:03→21:05)
--- NOTE | 2021-09-18 12:03 | PN.HOSP_ITS ---
Subjective Subjective Feels well. Requiring assistance with activity. Does not feel he can go home. Objective Data Objective Data Vital Signs: Vital Signs Temp Pulse Resp BP Pulse Ox 36.9 C 82 18 139/66 H 92 09/18/21 08:11 09/18/21 08:11 09/18/21 08:11 09/18/21 08:11 09/18/21 08:11 Oxygen Delivery Method Room Air Weight: 162.7 kg Body Mass Index (BMI) 48.8 Intake & Output: Intake and Output for Last 24 Hours 09/16/21 09/17/21 09/18/21 23:59 23:59 23:59 Intake Total 3232.75 / 3232.75 3820.25 / 3820.25 1703.25 / 1703.25 Output Total 1999 / 1999 2250 / 2250 1200 / 1200 Balance 1232.75 / 1232.75 1570.25 / 1570.25 503.25 / 503.25 Medical Nutrition Assessment Dietitian: Malnutrition Criteria Met Start: 09/15/21 16:02 Freq: Status: Active Protocol: Document 09/15/21 16:02 [facility] (Rec: 09/15/21 16:03 [facility] [id number]) Nutrition Malnutrition Evidence of Malnutrition Exists Yes Malnutrition (severe): Chronic Evidenced By Suboptimal Energy Intake ( Severe),Physical Changes ( Severe) Clinical Problem Chronic Disease or Condition Related Malnutrition Etiology related to food or nutrition related knowledge deficit concerning amount of energy/ nutrients required Signs/Symptoms as evidenced by 24 hr recall and admitted intake estimated at < 50% of estimated needs for >= 1 month, age related physical debility/ reduced muscle strength overall, statements of disinterest in eating sufficient energy/ protein to maintain healthy weight, edema/severe increase of fluid accumulation observed in bilateral lower extremities. Status Active Problem Recommendation Dietitian Recommendations/Changes Will adjust diet to 2500 kcals to meet RMR of UBW /adjusting for suspected weight increase from edema/ fluid weight. Will add low Na for medical issues. Will request daily weights to monitor edema weight. Added Wilder packet BID as medication, not diet, administered by nursing. Lab / Micro Data Result Diagrams: 09/17/21 06:50 09/17/21 06:50 Labs: Laboratory Results - last 24 hr 09/17/21 18:21: Vancomycin Trough 13.4 Micro: Microbiology 09/15/21 08:35 Wound - Leg, Right Gram Stain - Final 09/15/21 08:35 Wound - Leg, Right Wound Culture - Final Staphylococcus aureus Pseudomonas aeroginosa 09/14/21 13:45 Blood Culture (Wb) - Left Hand Blood Culture - Final Achromobacter xylosoxidans 09/14/21 13:40 Blood Culture (Wb) - Anticubital Right Blood Culture - Preliminary No growth in 48 hours. Physical Exam Const alert HEENT head/scalp atraumatic and moist oral mucous membranes Head and Scalp: normocephalic Extremity Extremity Narrative: edema. Neuro Sensorium / Orientation: awake and alert Psych affect normal Assessment & Plan Assessment/Plan (1) Cellulitis of lower leg: (2) Ulcer of right lower extremity with fat layer exposed: (3) Bacteremia: PLAN: 1. Right lower extremity cellulitis * improving * complicated by morbid obesity, lymphedema * may have begun from ulceration * on amp/SB and vanc * Cx showing S. aureus and GNR 2. right LE ulcer * likely 2/2 pressure and venous stasis * continue wound care * Cx positive for MSSA and pseudomonas * Bactrim and cipro 3. bacteremia * Achromobacter * suspect 2/2 ulcer/cellulitis * Bactrim for total of 10 days 4. Lymphedema * complicates care and recovery from cellulitis * weight appears stable from 2019 * increase furosemide to BID * complicated by pulmonary HTN 5. RAAD * noncompliant with CPAP. Did not tolerate * recommend follow up with pulm for possible repeat PSG and whether or not he may be a candidate for BiPAP. 6. 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 CKD3B * stable * monitor 9. Debility * 2 person assist * pt desires now to go to SNF * will have case mgmt asses on 09/19 Charges/Coding Visit Charges Inpatient E&M: 04019 Subs Hosp L2
[2021-09-18] MEDS: Allopurinol 300 MG Tablet PO (13:38)
[2021-09-18] MEDS: 0.9% Normal Saline 1,000 ML 75 ML IV (13:39)
[2021-09-18 14:11] VITALS: BP 119/63; PULSE 70; RESP 18; TEMP 36.6; O2SAT 94
[2021-09-18] MEDS: Atorvastatin Calcium 10 MG Tablet PO (21:06)
[2021-09-18] MEDS: Ciprofloxacin 250 MG Tablet PO (21:06)
[2021-09-18 21:09] VITALS: BP 113/58; PULSE 84; RESP 18; TEMP 37; O2SAT 93
[2021-09-19] VITALS (8 sets, daily range): BP systolic 109–133; BP diastolic 54–67; PULSE 73–77; RESP 18; TEMP 36.4–36.9; O2SAT 90–95
[2021-09-19 05:16] LABS: Absolute Lymphocyte Count 0.79 X10^3/uL (0.83-4.51); Absolute Neutrophil Count 4.4 X10^3/uL (2.0-7.7); Basophil# 0.02 X10^3/uL; Basophil% 0.3 % (0-1); Eosinophil# 0.63 X10^3/uL; Eosinophils% 9.5 % (0-5); Hemoglobin 9.8 g/dL (13.0-16.5); Lymphocyte # 0.79 X10^3/ul (0.83-4.51); Mean Corp Hgb Conc 32.7 g/dL (32-36); Mean Corpuscular Hgb 30.9 pg (27.0-32.0); Mean Corpuscular Volume 94.6 fL (80-94); Mean Platelet Vol. 9.2 fl (6.2-12.0); Monocyte# 0.58 X10^3/uL; Monocyte% 8.8 % (0-10); NRBC Flagged by Analyzer 0 % (0-5); Neutrophil # 4.41 X10^3/uL (2.7-7.7); Neutrophil % 66.8 % (47-70); Platelet Count 285 K/mm3 (150-450); RBC Distribution Width CV 13.2 % (11.6-14.6); RBC Distribution Width SD 45.5 fl (35.1-43.9); Red Blood Count 3.17 M/mm3 (4.6-6.2); White Blood Count 6.6 K/mm3 (4.4-11.0)
[2021-09-19 05:23] LABS: International Normalized Ratio 4.6; Prothrombin Time (Protime)PT. 42.6 SECONDS (11.7-14.9)
[2021-09-19 05:52] LABS: ALB/GLOB Ratio 0.4 RATIO (0.9-2.4); AST(SGOT) 30 U/L (15-37); Alanine Aminotransfer ALT/SGPT 19 U/L (16-61); Albumin, Serum 1.9 g/dL (3.2-5.0); Alkaline Phosphatase 123 U/L (45-117); Anion Gap 8 (5-15); BUN 34 mg/dL (7-18); BUN/Creat Ratio 23.1 RATIO (10-20); Calcium,Total 8.7 mg/dL (8.5-10.1); Chloride 107 mmol/L (98-107); Creatinine, Serum 1.47 mg/dL (0.70-1.30); EST Glomerular Filtration Rate 49 mL/min (>60); Est Glom Filt Rate - Afr Amer 60 mL/min (>60); Estimated Creatinine Clearance 46.92 ml/min; Globulin 4.6 g/dL (2.2-4.2); Glucose 97 mg/dL (74-106); Potassium 2.9 mmol/L (3.5-5.1); Protein, Total 6.5 g/dL (6.4-8.2); Sodium Level 140 mmol/L (136-145)
[2021-09-19] MEDS: Menthol/Lanolin/Calamine/Znox 113 GM Tube 1 APPLIC TOPICAL ×3 (05:57→20:48)
[2021-09-19] MEDS: Allopurinol 300 MG Tablet PO (09:27)
[2021-09-19] MEDS: Smz/Tmp Ds Tablet 1 TABLET PO (09:27)
[2021-09-19] MEDS: Ciprofloxacin 250 MG Tablet PO ×2 (09:27→20:47)
[2021-09-19] MEDS: Nystatin Powder 15gm Bottle 1 APPLIC TOPICAL ×2 (09:28→20:47)
[2021-09-19] MEDS: Furosemide 40 MG Tablet PO ×2 (09:28→15:37)
[2021-09-19] MEDS: Lisinopril 20 MG Tablet PO (09:28)
--- NOTE | 2021-09-19 09:37 | CASEMGMT ---
Addendum entered by Tracy Christopher 09/19/21 10:23: SW spoke w/pt and , their choices for SNF are 1. [facility] and 2. [facility]. SW spoke w/Fabiola at [facility], she is not sure about bed availability, will look at referral. Referral faxed. SW will continue to follow. REMBERTO Grant Original Note: Pt is an assist of two and as per physician pt is likely not able to return home with home health as previously arranged. SW met w/pt in room, reviewed discharge options. Pt is agreeable to SNF for rehab. SW provided list of halfway facilities to pt in pt's preferred geographic area, complete with quality and resource use data, that take pt's insurance. Pt is not sure where he would like to have a referral sent. SW explained the process for the referral, that pt is to let SW know a few choices, and then SW will send referrals, once a facility lets SW know they have a bed, a precert will be started w/insurance. Pt states understanding. Pt states his will be here soon, SW suggested he review the list w/ once she gets here, and then SW will speak with them and send referrals where they request. Pt in agreement with this. SW will continue to follow, will check back w/pt and his once arrives to hospital. REMBERTO Grant
--- NOTE | 2021-09-19 13:49 | WOUNDNOTE ---
wound photo: right lateral lower leg
--- NOTE | 2021-09-19 14:21 | CASEMGMT ---
SW called [facility], message left regarding referral. REMBERTO Grant
--- NOTE | 2021-09-19 15:37 | PCM.PN.HOSP ---
Subjective Subjective Patient states he is feeling better today and feels that his mobility is improved. He is willing to however, go to senior living facility as he does not feel that he will be able to go home safely at this time. No significant overnight issues noted. Patient has no complaints at this time. Objective Data Objective Data Vital Signs: Vital Signs Temp Pulse Resp BP Pulse Ox 97.6 F L 73 18 133/67 H 95 09/19/21 08:47 09/19/21 10:00 09/19/21 08:47 09/19/21 08:47 09/19/21 15:05 Oxygen Delivery Method Room Air Weight: 162.4 kg Body Mass Index (BMI) 48.8 Intake & Output: Intake and Output for Last 24 Hours 09/17/21 09/18/21 09/19/21 23:59 23:59 23:59 Intake Total 3820.25 / 3820.25 3537.00 / 3537.00 400 / 400 Output Total 2250 / 2250 2600 / 2600 Balance 1570.25 / 1570.25 937.00 / 937.00 400 / 400 Medical Nutrition Assessment Dietitian: Malnutrition Criteria Met Start: 09/15/21 16:02 Freq: Status: Active Protocol: Document 09/18/21 16:37 RMA (Rec: 09/18/21 16:38 RMA [id number]) Nutrition Malnutrition Evidence of Malnutrition Exists No Intake Problem Increased Nutrient Needs (specify) Etiology for protein related to wound healing Signs/Symptoms as evidenced by R leg stasis ulcer Status Active Problem Recommendation Dietitian Recommendations/Changes Will change diet to 2000 calorie; cardiac/sodium- restricted --FR and carb controlled as needed. Continue Wilder 1 packet BID for wound healing with medpass . Will try 120ml strawberry ensure enlive BID w/ breakfast and dinner. Lab / Micro Data Result Diagrams: 09/19/21 04:55 09/19/21 04:55 Labs: Laboratory Results - last 24 hr 09/19/21 04:55: WBC 6.6, RBC 3.17 L, Hgb 9.8 L, Hct 30.0 L, MCV 94.6 H, MCH 30.9, MCHC 32.7, RDW Std Deviation 45.5 H, RDW Coeff of Adiel 13.2, Plt Count 285, MPV 9.2, Immature Gran % (Auto) 2.600 H, Neut % (Auto) 66.8, Lymph % (Auto) 12.0 L, Canyon % (Auto) 8.8, Eos % (Auto) 9.5 H, Baso % (Auto) 0.3, Absolute Neuts (auto) 4.4, Absolute Lymphs (auto) 0.79 L, Nucleated RBC % 0 09/19/21 04:55: PT 42.6 H, INR 4.6 H* 09/19/21 04:55: Sodium 140, Potassium 2.9 L, Chloride 107, Carbon Dioxide 25.0, Anion Gap 8, BUN 34 H, Creatinine 1.47 H, Estim Creat Clear Calc 46.92, Est GFR (MDRD) Af Amer 60, Est GFR (MDRD) Non-Af 49 L, BUN/Creatinine Ratio 23.1 H, Glucose 97, Calcium 8.7, Total Bilirubin 0.50, AST 30, ALT 19, Alkaline Phosphatase 123 H, Total Protein 6.5, Albumin 1.9 L, Globulin 4.6 H, Albumin/Globulin Ratio 0.4 L Micro: Microbiology 09/15/21 08:35 Wound - Leg, Right Gram Stain - Final 09/15/21 08:35 Wound - Leg, Right Wound Culture - Final Staphylococcus aureus Pseudomonas aeroginosa 09/14/21 13:45 Blood Culture (Wb) - Left Hand Blood Culture - Final Achromobacter xylosoxidans 09/14/21 13:40 Blood Culture (Wb) - Anticubital Right Blood Culture - Preliminary No growth in 48 hours. Physical Exam Const alert, oriented x3, no apparent distress and average body habitus Constitutional Narrative: Morbidly obese white male sitting up in chair at the bedside watching television, appears comfortable, nontoxic Exam Limitations: no limitations Nutritional Appearance: morbidly obese HEENT head/scalp atraumatic, moist oral mucous membranes and oropharynx normal; Negative for dentition normal HEENT Narrative: No thrush, Mallampati 3, edentulous Head and Scalp: normocephalic Resp normal respiratory effort, no retractions, no use of accessory muscles and clear to auscultation bilaterally Resp Narrative: Distant secondary to body habitus Auscultation: crackles, rales, rhonchi and wheezes Cardio regular rate, regular rhythm, S1 normal heart sound, S2 normal heart sound, no murmurs, no rub, no gallops, no clicks and no JVD GI normal to inspection, nondistended, normoactive bowel sounds, soft to palpation, non-tender and non-distended Extremity Extremity Narrative: Bilateral lower extremity edema-dressings in place, Norbert bandages in place for compression, cap refill is 2+, no cyanosis or clubbing Skin no rashes or lesions noted, skin turgor normal, no jaundice, no petechiae and no mottling Neuro oriented x3, moves all extremities and no focal motor deficits Neuro Narrative: Generalized weakness Sensorium / Orientation: awake and alert Speech: speech normal Assessment & Plan Assessment/Plan (1) Ulcer of right lower extremity with fat layer exposed: (2) Bacteremia: (3) Supratherapeutic INR: (4) Lymphedema: PLAN: Right lower extremity cellulitis -Improving -Photographs reviewed from today -Complicated by morbid obesity and chronic lymphedema -Antibiotics changed and to be completed with ciprofloxacin Right lower extremity ulcer -Likely secondary to pressure and venous stasis -Continue wound care -Notes reviewed from today -Cultures showing MSSA and Pseudomonas -Continue ciprofloxacin and Bactrim Acrombacter bacteremia -Likely related to lower extremity infections -We will needed course of Bactrim to be completed for a total of 10 days -Day 4 of 10 Lymphedema -Weight is of currently stable -Lasix was increased to twice daily -We will watch renal function--> remained stable at this time CKD stage IIIb -It appears baseline serum creatinine is from 1.5-1.75 -Continue to monitor -despite increased diuresis serum creatinine is down to 1.47 -Avoid nephrotoxins as able Supratherapeutic INR -Hold Coumadin -No signs of acute bleeding -Current INR is 4.6 up from 2.2 yesterday -Likely related to antibiotic use -Monitor INR daily Loose stool -Likely lead antibiotic -Add acidophilus -Pending on volume could consider as needed Imodium -Monitor Chronic macrocytic anemia -Hemoglobin is relatively stable and appears close to baseline -Continue to monitor especially with supratherapeutic INR RAAD -Patient is noncompliant at baseline secondary to intolerance -We will recommend outpatient pulmonary follow-up for consideration of repeat polysomnography History of DVT -INR supratherapeutic -Continue to monitor Debility -Needs continued occupational and physical therapy -[facility] placement is pending [place] -BMI is 48.5 -Complicates overall treatment, prognosis, and outcomes DVT prophylaxis -On Coumadin at baseline for history of DVT -INR supratherapeutic CODE STATUS -DNR CCA no intubation Charges/Coding Visit Charges Inpatient E&M: 75059 Subs Hosp L2
--- NOTE | 2021-09-19 15:57 | CASEMGMT ---
SW spoke w/Fabiola at [facility], they do believe they will have a bed for pt, and will start precert. SW let pt and know. SW will continue to follow. REMBERTO Grant
[2021-09-19] MEDS: Atorvastatin Calcium 10 MG Tablet PO (20:47)
[2021-09-20] VITALS (7 sets, daily range): BP systolic 121–142; BP diastolic 53–87; PULSE 68–74; RESP 16–18; TEMP 36.8–37.2; O2SAT 88–97
[2021-09-20] MEDS: Menthol/Lanolin/Calamine/Znox 113 GM Tube 1 APPLIC TOPICAL ×2 (05:24→15:28)
[2021-09-20 08:40] LABS: Hematocrit 29.4 % (40-54); Hemoglobin 9.9 g/dL (13.0-16.5); Mean Corp Hgb Conc 33.7 g/dL (32-36); Mean Corpuscular Hgb 31.4 pg (27.0-32.0); Mean Corpuscular Volume 93.3 fL (80-94); Mean Platelet Vol. 9.3 fl (6.2-12.0); POSITIVE COUNT YES; POSITIVE MORPHOLOGY YES; Platelet Count 324 K/mm3 (150-450); RBC Distribution Width CV 13.3 % (11.6-14.6); RBC Distribution Width SD 45.4 fl (35.1-43.9); Red Blood Count 3.15 M/mm3 (4.6-6.2); White Blood Count 6.1 K/mm3 (4.4-11.0)
[2021-09-20 08:42] LABS: Differential Indicated MANUAL DIFF
[2021-09-20] MEDS: Smz/Tmp Ds Tablet 1 TABLET PO (08:46)
[2021-09-20] MEDS: Allopurinol 300 MG Tablet PO (08:46)
[2021-09-20] MEDS: Furosemide 40 MG Tablet PO ×2 (08:47→17:05)
[2021-09-20] MEDS: Lisinopril 20 MG Tablet PO (08:47)
[2021-09-20] MEDS: Nystatin Powder 15gm Bottle 1 APPLIC TOPICAL ×2 (08:47→21:48)
[2021-09-20] MEDS: Ciprofloxacin 250 MG Tablet PO ×2 (08:47→21:47)
[2021-09-20 08:59] LABS: International Normalized Ratio 4.6
[2021-09-20 09:08] LABS: Eosinophil 4 % (0-5); Lymphocyte 13 % (19-41); Metamyelocyte 2 % (0-1); Monocyte 9 % (0-10); Myelocyte 1 % (0-0); Neutrophil-Segmented 71 % (47-70); Total Cells Counted 100 (MANUAL DIFF)
[2021-09-20 09:09] LABS: Absolute Lymphocyte Count 0.79 X10^3/uL (0.83-4.51); Absolute Neutrophil Count 4.3 X10^3/uL (2.0-7.7); Hypochromasia 1+; Platelet Estimate ADEQUATE (ADEQ)
--- NOTE | 2021-09-20 09:13 | NURSING ---
Laboratory called to confirm critical lab of patient. INR is 4.6, has not changed from 4.6 09/19/21. Charge nurse notified and to message Physician due to patient being on Jantoven.
--- NOTE | 2021-09-20 09:18 | NURSING ---
Spoke with PCP about critical INR; Dr. Salamanca D/C'd Jantoven 5mg.
[2021-09-20 09:20] LABS: Anion Gap 8 (5-15); BUN 33 mg/dL (7-18); BUN/Creat Ratio 22.3 RATIO (10-20); Calcium,Total 8.9 mg/dL (8.5-10.1); Chloride 106 mmol/L (98-107); Creatinine, Serum 1.48 mg/dL (0.70-1.30); EST Glomerular Filtration Rate 49 mL/min (>60); Est Glom Filt Rate - Afr Amer 59 mL/min (>60); Estimated Creatinine Clearance 46.61 ml/min; Glucose 96 mg/dL (74-106); Potassium 2.7 mmol/L (3.5-5.1); Sodium Level 140 mmol/L (136-145)
--- NOTE | 2021-09-20 09:24 | CASEMGMT ---
Addendum entered by Tracy Christopher 09/20/21 12:04: SW called [facility] a second time and left a second message. SW did let know that we are still waiting to hear back from [facility]. states understanding. REMBERTO Grant Original Note: SW called [facility], message left regarding precert and bed availability, will await call back. REMBERTO Grant
--- NOTE | 2021-09-20 10:38 | CASEMGMT ---
RADHA WHITLEY NOTE: RADHA CM to room. Pt had walker delivered to room on Sunday, as d/c home anticipated for Sat. Pt now going to SNF. Per pt and , pt has been using the walker from, therefore, walker cannot be returned to [facility]. Aleja @ [facility] made aware. TC to Taylor @ [facility]. She was made aware pt will be discharging to SNF instead of home. Jay MIGUEL RN CM
--- NOTE | 2021-09-20 12:21 | CASEMGMT ---
SW spoke w/Fabiola at [facility], she states that precert was started, she does not anticipate getting precert until tomorrow at the earliest. They also have a bed available tomorrow. SW called pt's nurse case management, Mere Carrillo, message left letting her know pt will be going to [facility] at discharge. SW spoke w/pt and in room, let them know that we are awaiting insurance authorization, and that [facility] will have a bed tomorrow. SW will let pt and know as soon as we know about precert. They state understanding. SW will continue to follow. REMBERTO Grant
[2021-09-20] MEDS: Potassium Chloride Oral Tablet 20 MEQ 60 MEQ PO ×2 (13:53→17:06)
--- NOTE | 2021-09-20 14:42 | PN.HOSP_ITS ---
Subjective Subjective Patient reports that he is feeling even better today than he did yesterday. Denies any issues at this time. States he slept well overnight. Anxious to go to [facility] once pre-CERT is obtained. Objective Data Objective Data Vital Signs: Vital Signs Temp Pulse Resp BP Pulse Ox 98.3 F 70 16 121/65 H 93 09/20/21 08:55 09/20/21 08:55 09/20/21 08:55 09/20/21 08:55 09/20/21 08:55 Oxygen Delivery Method Room Air Weight: 161.7 kg Body Mass Index (BMI) 48.8 Intake & Output: Intake and Output for Last 24 Hours 09/18/21 09/19/21 09/20/21 23:59 23:59 23:59 Intake Total 3537.00 / 3537.00 800 / 800 Output Total 2600 / 2600 250 / 251 501 / 501 Balance 937.00 / 937.00 550 / 549 -501 / -501 Medical Nutrition Assessment Dietitian: Malnutrition Criteria Met Start: 09/15/21 16:02 Freq: Status: Active Protocol: Document 09/18/21 16:37 RMA (Rec: 09/18/21 16:38 RMA [id number]) Nutrition Malnutrition Evidence of Malnutrition Exists No Intake Problem Increased Nutrient Needs (specify) Etiology for protein related to wound healing Signs/Symptoms as evidenced by R leg stasis ulcer Status Active Problem Recommendation Dietitian Recommendations/Changes Will change diet to 2000 calorie; cardiac/sodium- restricted --FR and carb controlled as needed. Continue Wilder 1 packet BID for wound healing with medpass . Will try 120ml strawberry ensure enlive BID w/ breakfast and dinner. Lab / Micro Data Result Diagrams: 09/20/21 08:12 09/20/21 08:12 Labs: Laboratory Results - last 24 hr 09/20/21 08:12: PT 43.0 H, INR 4.6 H* 09/20/21 08:12: WBC 6.1, RBC 3.15 L, Hgb 9.9 L, Hct 29.4 L, MCV 93.3, MCH 31.4, MCHC 33.7, RDW Std Deviation 45.4 H, RDW Coeff of Adiel 13.3, Plt Count 324, MPV 9.3, Neut % (Auto) Not Reportable, Absolute Neuts (auto) 4.3, Absolute Lymphs (auto) 0.79 L, Total Counted 100, Neutrophils % (Manual) 71 H, Lymphocytes % (Manual) 13 L, Monocytes % (Manual) 9, Eosinophils % (Manual) 4, Metamyelocytes % 2 H, Myelocytes % 1 H, Diff Path Review February, Platelet Estimate ADEQUATE, Hypochromasia 1+ 09/20/21 08:12: Sodium 140, Potassium 2.7 L*, Chloride 106, Carbon Dioxide 26.0, Anion Gap 8, BUN 33 H, Creatinine 1.48 H, Estim Creat Clear Calc 46.61, Est GFR (MDRD) Af Amer 59 L, Est GFR (MDRD) Non-Af 49 L, BUN/Creatinine Ratio 22.3 H, Glucose 96, Calcium 8.9 Micro: Microbiology 09/14/21 13:40 Blood Culture (Wb) - Anticubital Right Blood Culture - Final No growth in 5 days. 09/15/21 08:35 Wound - Leg, Right Gram Stain - Final 09/15/21 08:35 Wound - Leg, Right Wound Culture - Final Staphylococcus aureus Pseudomonas aeroginosa 09/14/21 13:45 Blood Culture (Wb) - Left Hand Blood Culture - Final Achromobacter xylosoxidans Physical Exam Const alert, oriented x3, no apparent distress and average body habitus Constitutional Narrative: Morbidly obese white male sitting up in chair at the bedside watching television, appears comfortable, nontoxic Exam Limitations: no limitations Nutritional Appearance: morbidly obese HEENT head/scalp atraumatic, moist oral mucous membranes and oropharynx normal; Negative for dentition normal Head and Scalp: normocephalic Resp normal respiratory effort, no retractions, no use of accessory muscles and clear to auscultation bilaterally Resp Narrative: Distant secondary to body habitus Auscultation: crackles, rales, rhonchi and wheezes Cardio regular rate, regular rhythm, S1 normal heart sound, S2 normal heart sound, no murmurs, no rub, no gallops, no clicks and no JVD GI normal to inspection, nondistended, normoactive bowel sounds, soft to palpation, non-tender and non-distended Extremity Extremity Narrative: Bilateral lower extremity edema-dressings in place, Norbert bandages in place for compression, cap refill is 2+, no cyanosis or clubbing Skin no rashes or lesions noted, skin turgor normal, no jaundice, no petechiae and no mottling Skin Narrative: superficial right posterior leg ulceration. Mild erythema of right lower extremity. Sloughing skin bilateral LE. Neuro oriented x3, moves all extremities and no focal motor deficits Neuro Narrative: Generalized weakness Sensorium / Orientation: awake and alert Speech: speech normal Assessment & Plan Assessment/Plan (1) Ulcer of right lower extremity with fat layer exposed: (2) Bacteremia: (3) Supratherapeutic INR: (4) Lymphedema: PLAN: Right lower extremity cellulitis -Improving -Complicated by morbid obesity and chronic lymphedema -Antibiotics changed and to be completed with ciprofloxacin/Bactrim Right lower extremity ulcer -Likely secondary to pressure and venous stasis -Continue wound care -Notes reviewed from today -Cultures showing MSSA and Pseudomonas -Continue ciprofloxacin and Bactrim Acrombacter bacteremia -Likely related to lower extremity infections -We will needed course of Bactrim to be completed for a total of 10 days -Day 5 of 10 -We will need to watch renal function and potassium and thus far patient seems to be tolerating well Lymphedema -Weight is of currently stable -Lasix was increased to twice daily -We will watch renal function--> remained stable at this time CKD stage IIIb -It appears baseline serum creatinine is from 1.5-1.75 -Continue to monitor -Remained stable -Avoid nephrotoxins as able Supratherapeutic INR -Continue to hold Coumadin -No signs of acute bleeding -Current INR is stable at 4.6 today -Likely related to antibiotic use -Monitor INR daily Loose stool -Likely lead antibiotic -Add acidophilus -2 bowel movements yesterday per discussion with patient -Pending on volume could consider as needed Imodium -Monitor Chronic macrocytic anemia -Hemoglobin is relatively stable and appears close to baseline -Continue to monitor especially with supratherapeutic INR RAAD -Patient is noncompliant at baseline secondary to intolerance -We will recommend outpatient pulmonary follow-up for consideration of repeat polysomnography History of DVT -INR supratherapeutic -Continue to monitor Debility -Needs continued occupational and physical therapy -longterm placement is pending [place] -BMI is 48.5 -Complicates overall treatment, prognosis, and outcomes DVT prophylaxis -On Coumadin at baseline for history of DVT -INR supratherapeutic CODE STATUS -DNR CCA no intubation Dispo: -Anticipate discharge to [facility] in the next 24 to 48 hours Charges/Coding Visit Charges Inpatient E&M: 63731 Subs Hosp L2
--- NOTE | 2021-09-20 16:11 | NURSING ---
will be moved to [facility]
--- NOTE | 2021-09-20 17:23 | NURSING ---
Patient moved from [facility] to [facility]. Family (Kayla and Eleanor) notified of transfer due to low census and closing of med surg 2.
[2021-09-20 19:19] LABS: Vancomycin, Trough Level 6.4 ug/mL (5.0-15.0)
[2021-09-20] MEDS: Atorvastatin Calcium 10 MG Tablet PO (21:47)
[2021-09-21 02:30] VITALS: BP 136/73; PULSE 71; RESP 18; TEMP 36.8; O2SAT 95
[2021-09-21] MEDS: Menthol/Lanolin/Calamine/Znox 113 GM Tube 1 APPLIC TOPICAL (05:01)
[2021-09-21 06:30] LABS: Absolute Lymphocyte Count 0.96 X10^3/uL (0.83-4.51); Absolute Neutrophil Count 3.8 X10^3/uL (2.0-7.7); Basophil# 0.02 X10^3/uL; Basophil% 0.3 % (0-1); Eosinophils% 6.8 % (0-5); Hematocrit 29.2 % (40-54); Hemoglobin 9.7 g/dL (13.0-16.5); Lymphocyte # 0.96 X10^3/ul (0.83-4.51); Lymphocyte % 16.4 % (19-41); Mean Corp Hgb Conc 33.2 g/dL (32-36); Mean Corpuscular Hgb 30.9 pg (27.0-32.0); Mean Platelet Vol. 9.4 fl (6.2-12.0); Monocyte# 0.43 X10^3/uL; Monocyte% 7.4 % (0-10); NRBC Flagged by Analyzer 0 % (0-5); Neutrophil # 3.76 X10^3/uL (2.7-7.7); Neutrophil % 64.5 % (47-70); Platelet Count 342 K/mm3 (150-450); RBC Distribution Width CV 13.3 % (11.6-14.6); RBC Distribution Width SD 45.3 fl (35.1-43.9); Red Blood Count 3.14 M/mm3 (4.6-6.2); White Blood Count 5.8 K/mm3 (4.4-11.0)
[2021-09-21 06:35] LABS: International Normalized Ratio 3.9; Prothrombin Time (Protime)PT. 37.4 SECONDS (11.7-14.9)
[2021-09-21 06:48] LABS: Anion Gap 10 (5-15); BUN 35 mg/dL (7-18); BUN/Creat Ratio 21.3 RATIO (10-20); Calcium,Total 8.8 mg/dL (8.5-10.1); Chloride 107 mmol/L (98-107); Creatinine, Serum 1.64 mg/dL (0.70-1.30); EST Glomerular Filtration Rate 44 mL/min (>60); Est Glom Filt Rate - Afr Amer 53 mL/min (>60); Estimated Creatinine Clearance 42.06 ml/min; Glucose 93 mg/dL (74-106); Magnesium 1.9 mg/dL (1.6-2.6); Potassium 3.3 mmol/L (3.5-5.1); Sodium Level 140 mmol/L (136-145)
--- NOTE | 2021-09-21 09:31 | CASEMGMT ---
JACKSON spoke w/Fabiola at [facility], they attained precert, pt can go to [facility] today, they have a bed available. JACKSON texted physician to let her know. REMBERTO Grant
[2021-09-21 10:12] VITALS: BP 107/62; PULSE 71; RESP 16; TEMP 36.7; O2SAT 95
[2021-09-21] MEDS: Lisinopril 20 MG Tablet PO (10:19)
[2021-09-21] MEDS: Allopurinol 300 MG Tablet PO (10:19)
[2021-09-21] MEDS: Smz/Tmp Ds Tablet 1 TABLET PO (10:19)
[2021-09-21] MEDS: Ciprofloxacin 250 MG Tablet PO (10:19)
[2021-09-21] MEDS: Potassium Chloride Oral Tablet 20 MEQ 60 MEQ PO ×2 (10:19→10:20)
[2021-09-21] MEDS: Furosemide 40 MG Tablet PO (10:20)
--- NOTE | 2021-09-21 11:53 | PCM.TXEXTCAR ---
Diet 09/18/21 16:34 Diet: Cardiac: Calorie-Controlled Food consistency:: Regular Liquid Consistency:: Regular/Thin Dietary Modifications:: Sodium Restricted Type of Dietary Supplement:: Ensure Enlive Is pt able to select menu?: Yes Diet Comments: 120ml strawberry ensure enlive BID w/ breakfast and dinner How many daily calories?: 2000 calorie Routine Orders/Code Status Suppository Frequency: Daily PRN O2 Frequency: PRN Keep PO Greater than or Equal to (%): 90 Routine Lab Work: CBC (Twice weekly), BMP (The until Bactrim and Cipro are completed) and INR (Daily) Code Status: DNRCC-A (No intubation) Wound(s) right lateral lower leg: Wound Type: Stasis Ulcer Dressing Change: Adaptic Suggestions for Active Care Change Position every (hours): 2 Therapies Weight Bearing: Full weight bearing Physical Therapy: Eval and Treat Occupational Therapy: Eval and Treat Problem/Diagnosis (1) Ulcer of right lower extremity with fat layer exposed: Status: Resolved (2) Bacteremia: Status: Acute (3) Supratherapeutic INR: Status: Acute (4) Lymphedema: Status: Chronic Allergies/Procedures Done in Hospital Allergies No Known Allergies Allergy (Verified 09/14/21 13:03) Procedures: None Type of Care/Length of Stay Estimated LOS: Convalescent Care Less Than 30 days Type of Care Needed: Skilled Rehab Potential: Fair Prognosis: Good Additional Orders/Day of Discharge H&P will serve as current which was dated: 09/21/21 Day of Discharge: 09/21/21 Dietary and Speech Recommendations Dietitian Recommendations/Changes: Will change diet to 2000 calorie; cardiac/sodium-restricted --FR and carb controlled as needed. Continue Wilder 1 packet BID for wound healing with medpass. Will try 120ml strawberry ensure enlive BID w/ breakfast and dinner. Discharge Plan Admission Admit Date/Time: 09/14/21 15:13 Primary Reason for Your Visit: Cellulitis Attending Provider: Maribeth Salamanca Primary Care Provider: Lesia Strickland NP Instructions Additional Instructions / Restrictions: 1. Follow-up with your primary care provider in 2 to 4 weeks Discharge Orders/Prescriptions Prescriptions: New ciprofloxacin HCl 250 mg Tablet 250 mg PO BID Qty: 0 RF: 0 sulfamethoxazole-trimethoprim 800-160 mg Tablet 1 tab PO BREAKFAST Qty: 5 RF: 0 nystatin [Nyamyc] 100,000 unit/gram Powder 1 applic topical BID Qty: 0 RF: 0 acidophilus-pectin, citrus 25 million cell -100 mg Tablet 1 tab PO 4X/DAY Qty: 0 RF: 0 Wilder (with collagen) 7-7-1.5 gram Powder In Packet 1 packet PO BIDCM Qty: 0 RF: 0 acetaminophen [Tylenol] 325 mg Tablet 650 mg PO Q6H PRN PRN (Reason: Pain Score 1-10/Temp > 100.7 F) Qty: 0 RF: 0 menthol-zinc oxide [Calmoseptine] 0.44-20.6 % Ointment 1 applic topical TID Qty: 0 RF: 0 Continued furosemide 40 MG tablet 40 mg PO DAILY RF: 0 lisinopril 20 MG tablet 20 mg PO DAILY RF: 0 allopurinol 300 MG tablet 300 mg PO DAILY RF: 0 simvastatin 20 mg tablet 20 mg PO QHS RF: 0 cholecalciferol (vitamin D3) 125 mcg (5,000 unit) tablet 5,000 unit PO DAILY RF: 0 Held warfarin 5 mg tablet 5 mg PO DAILY RF: 0 Hold Instructions: Until instructed to restart Referrals / Follow Up: Lesia Strickland [employer], [employer] [Primary Care Provider] - Disposition Disposition (needs filled in before D/C Order can be placed): Half-Way Facility
--- NOTE | 2021-09-21 11:55 | DS.PCM_ITS ---
Providers Date of Admission: 09/14/21 Primary Care Physician: DEBBIE Diehl Consultations 09/14/21 15:14 Consult: Onc/Wound/medication reconciliation technician Routine Comment: Reason for Consult:: RLE wound Reason For Visit: LLE CELLULITIS Diagnosis Discharge Diagnosis (1) Ulcer of right lower extremity with fat layer exposed: Status: Resolved Code(s): L97.912 - Non-pressure chronic ulcer of unspecified part of right lower leg with fat layer exposed (2) Bacteremia: Status: Acute Code(s): R78.81 - Bacteremia (3) Supratherapeutic INR: Status: Acute Code(s): R79.1 - Abnormal coagulation profile (4) Lymphedema: Status: Chronic Code(s): I89.0 - Lymphedema, not elsewhere classified Medications at Discharge Home Medications allopurinol 300 mg PO DAILY 09/11/14 furosemide 40 mg PO DAILY 09/11/14 lisinopril 20 mg PO DAILY 09/11/14 cholecalciferol (vitamin D3) 5,000 unit PO DAILY 09/14/21 simvastatin 20 mg PO QHS 09/14/21 warfarin 5 mg PO DAILY 09/14/21 acetaminophen [Tylenol] 650 mg PO Q6H PRN PRN #0 tab 09/21/21 acidophilus-pectin, citrus 1 tab PO 4X/DAY #0 tab 09/21/21 [id number] [Wilder (with collagen)] 1 packet PO BIDCM #0 ea 09/21/21 ciprofloxacin HCl 250 mg PO BID #0 tab 09/21/21 menthol-zinc oxide [Calmoseptine] 1 applic TOPICAL TID #0 g 09/21/21 nystatin [Nyamyc] 1 applic TOPICAL BID #0 g 09/21/21 sulfamethoxazole-trimethoprim 1 tab PO BREAKFAST #5 tab 09/21/21 Hospital Course Summary of Care Provided Minutes Spent on Discharge: 41 Hospital Course: Mr. Baltazar is a 76-year-old white male who presented to the emergency department was [facility] on 09/14/2021 with a chief complaint of lower extremity edema and right lower extremity erythema that had been pre sent for several days. The patient presented when he developed a fever. He had not been on antibiotics as an outpatient and his symptoms had been going on for approximately 1 week prior to admission. On admission the stated that he was somewhat lethargic the day previous. He had no other symptoms. In the emergency department he had a temperature of 101.7, a mild leukocytosis at 11.7 and an elevated creatinine from baseline at 2.05. His chest x-ray was negative. Antibiotics were initiated and blood cultures were drawn prior to antibiotics being dosed. He was admitted to the medical floor for further care. He was maintained on IV antibiotics with Unasyn and vancomycin and seen by wound care to address his lower extremity wounds. His diuresis was increased from daily to twice daily until discharge where it was reduced back to daily given a trend up in his serum creatinine. His wound cultures were positive for MSSA and Pseudomonas and his antibiotics were narrowed to ciprofloxacin and Bactrim. His blood cultures were +1 of 2 for Achromobacter and he was started on Bactrim for this. He will need a total of 10-day course and had a completed 5 days prior to discharge. 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 His INR was initially subtherapeutic but he became supratherapeutic during his course likely related to antibiotic usage. His Coumadin had been held. His INR on the day of discharge was 3.9. His goal INR is 2-3. I would recommend holding his Coum cal until he is approximately in the 3 range and then reinitiating him at his home dose and would anticipate his INR normalizing once we get him off antibiotics. As noted above, he has 5 more days of antibiotics after discharge. His initial goal was to be discharged home but he had significant weakness and needs to be able to be more functional. He did agree to skilled facility discharge and was accepted at [facility]. He was discharged in stable condition on 09/21/2021. I would recommend daily INRs until his Coumadin can be reinitiated and stabilized as well as daily BMPs as long as he is on Bactrim and Cipro. He will also need continued wound care as noted on dis charge instructions. I recommend follow-up with his PCP 2 to 4 weeks after discharge. Discharge diagnoses: Right lower extremity cellulitis Right lower extremity ulcer with infection-MSSA/Pseudomonas Acromial bacteria bacteremia Chronic lymphedema CKD stage IIIb Supratherapeutic INR secondary to Coumadin use Loose stools-antibiotic induced Chronic macrocytic anemia RAAD Hypertension PAH who group 3 History of GERD Vitamin D C Hyperlipidemia History of DVT Debility Morbid obesity Physical Exam Const alert, oriented x3, no apparent distress and no limitations Constitutional Narrative: Morbidly obese white male sitting up in chair at the bedside watching television, appears comfortable, nontoxic General Appearance: cooperative, comfortable, well kempt and well developed Orientation / Consciousness: awake Exam Limitations: no limitations Nutritional Appearance: morbidly obese HEENT normocephalic, head/scalp atraumatic, moist oral mucous membranes and oropharynx normal; Negative for dentition normal HEENT Narrative: Mildly hard of hearing Eyes PERRL, EOMs intact bilaterally and conjunctivae normal Eyes Narrative: No scleral icterus Neck no lymphadenopathy, supple and no JVD Neck Narrative: Short thick neck, trachea midline, no thyroid enlargement Resp normal respiratory effort, no retractions, no use of accessory muscles and clear to auscultation bilaterally Resp Narrative: Distant secondary to body habitus Auscultation: crackles, rales, rhonchi and wheezes Cardio regular rate, regular rhythm, S1 normal heart sound, S2 normal heart sound, no murmurs, no rub, no gallops, no clicks and no JVD GI normal to inspection, nondistended, normoactive bowel sounds, soft to palpation, non-tender and non-distended GI Narrative: Obese Extremity Extremity Narrative: Bilateral lower extremity edema-dressings in place, Norbert bandages in place for compression, cap refill is 2+, no cyanosis or clubbing Skin no rashes or lesions noted, skin turgor normal, no jaundice, no petechiae and no mottling Skin Narrative: Bandages in place-pictures reviewed from wound care Neuro oriented x3, moves all extremities and no focal motor deficits Neuro Narrative: Generalized weakness proximal greater than distal Sensorium / Orientation: awake and alert Speech: speech normal Psych affect normal Medical Records Data Medical Nutrition Assessment Dietitian: Malnutrition Criteria Met Start: 09/15/21 16:02 Freq: Status: Active Protocol: Document 09/18/21 16:37 RMA (Rec: 09/18/21 16:38 RMA [id number]) Nutrition Malnutrition Evidence of Malnutrition Exists No Intake Problem Increased Nutrient Needs (specify) Etiology for protein related to wound healing Signs/Symptoms as evidenced by R leg stasis ulcer Status Active Problem Recommendation Dietitian Recommendations/Changes Will change diet to 2000 calorie; cardiac/sodium- restricted --FR and carb controlled as needed. Continue Wilder 1 packet BID for wound healing with medpass . Will try 120ml strawberry ensure enlive BID w/ breakfast and dinner. Weight / BMI Weight Weight: 161.7 kg Body Mass Index (BMI) 48.8 ABG / Lab / Microbiology Data Result Diagrams: 09/21/21 05:00 09/21/21 05:50 Laboratory: Laboratory Results - last 24 hr 09/20/21 18:28: Vancomycin Trough 6.4 09/21/21 05:00: PT 37.4 H, INR 3.9 09/21/21 05:00: WBC 5.8, RBC 3.14 L, Hgb 9.7 L, Hct 29.2 L, MCV 93.0, MCH 30.9, MCHC 33.2, RDW Std Deviation 45.3 H, RDW Coeff of Adiel 13.3, Plt Count 342, MPV 9.4, Immature Gran % (Auto) 4.600 H, Neut % (Auto) 64.5, Lymph % (Auto) 16.4 L, [place] % (Auto) 7.4, Eos % (Auto) 6.8 H, Baso % (Auto) 0.3, Absolute Neuts (auto) 3.8, Absolute Lymphs (auto) 0.96, Nucleated RBC % 0 09/21/21 05:50: Sodium 140, Potassium 3.3 L, Chloride 107, Carbon Dioxide 23.0, Anion Gap 10, BUN 35 H, Creatinine 1.64 H, Estim Creat Clear Calc 42.06, Est GFR (MDRD) Af Amer 53 L, Est GFR (MDRD) Non-Af 44 L, BUN/Creatinine Ratio 21.3 H, Glucose 93, Calcium 8.8, Magnesium 1.9 Microbiology: Microbiology 09/21/21 10:35 Nasal Secretion SARS-CoV-2 Antigen (Rapid) - Final 09/14/21 13:40 Blood Culture (Wb) - Anticubital Right Blood Culture - Final No growth in 5 days. 09/15/21 08:35 Wound - Leg, Right Gram Stain - Final 09/15/21 08:35 Wound - Leg, Right Wound Culture - Final Staphylococcus aureus Pseudomonas aeroginosa 09/14/21 13:45 Blood Culture (Wb) - Left Hand Blood Culture - Final Achromobacter xylosoxidans D/C Instructions Discharge Diet: Low fat / Low cholesterol, 8 Cup Fluid Restriction and 2000 mg Sodium Diet Discharge Activity: Return to Normal Activity Meaningful Use Info Meaningful Use Diagnoses (Choose all that apply): None applicable Discharge Plan Admission Admit Date/Time: 09/14/21 15:13 Primary Reason for Your Visit: Cellulitis Attending Provider: Maribeth Salamanca Primary Care Provider: Lesia Strickland NP Instructions Additional Instructions / Restrictions: 1. Follow-up with your primary care provider in 2 to 4 weeks Discharge Orders/Prescriptions Prescriptions: New ciprofloxacin HCl 250 mg Tablet 250 mg PO BID Qty: 0 RF: 0 sulfamethoxazole-trimethoprim 800-160 mg Tablet 1 tab PO BREAKFAST Qty: 5 RF: 0 nystatin [Nyamyc] 100,000 unit/gram Powder 1 applic topical BID Qty: 0 RF: 0 acidophilus-pectin, citrus 25 million cell -100 mg Tablet 1 tab PO 4X/DAY Qty: 0 RF: 0 Wilder (with collagen) 7-7-1.5 gram Powder In Packet 1 packet PO BIDCM Qty: 0 RF: 0 acetaminophen [Tylenol] 325 mg Tablet 650 mg PO Q6H PRN PRN (Reason: Pain Score 1-10/Temp > 100.7 F) Qty: 0 RF: 0 menthol-zinc oxide [Calmoseptine] 0.44-20.6 % Ointment 1 applic topical TID Qty: 0 RF: 0 Continued furosemide 40 MG tablet 40 mg PO DAILY RF: 0 lisinopril 20 MG tablet 20 mg PO DAILY RF: 0 allopurinol 300 MG tablet 300 mg PO DAILY RF: 0 simvastatin 20 mg tablet 20 mg PO QHS RF: 0 cholecalciferol (vitamin D3) 125 mcg (5,000 unit) tablet 5,000 unit PO DAILY RF: 0 Held warfarin 5 mg tablet 5 mg PO DAILY RF: 0 Hold Instructions: Until instructed to restart Referrals / Follow Up: Lesia Strickland NP, CHEMICAL ENGINEERING TECHNOLOGIST-C [Primary Care Provider] - Disposition Disposition (needs filled in before D/C Order can be placed): [facility] Charges/Coding Visit Charges Inpatient E&M: 72870 SNF Disch >30 Min
--- NOTE | 2021-09-21 12:13 | NURSING ---
report called to [facility]
--- NOTE | 2021-09-21 12:54 | CASEMGMT ---
JACKSON called Mere Kelly with [facility] and left her a voice mail letting her know patient will be going to [facility] today. Ivette BLOUNT
--- NOTE | 2021-09-21 13:55 | CASEMGMT ---
JACKSON arranged for patient to get picked up at 1500 via [facility] van. JACKSON faxed orders, negative COVID, and picker feeder time to [facility]. JACKSON notified RN, patient, his , webbing weaver, and Dameeko at [facility] of picker feeder time. All in agreement with d/c plan. plan: d/c to [facility] under skilled level of care on a convalescent stay. [facility] transported via [facility] van. Ivette BLOUNT
[2021-09-21 15:33] LABS: Pathologist Review Reviewed
== END 2021-09-21 15:55 | disposition skilled nursing facility (03) | DRG 603 ==
LOC: ED 14:54 → MS2 16:51 → PCU 09-20 16:21
PROVIDERS: Family Medicine; Internal Medicine; Admitting Provider Physician Assistant; Emergency Provider Emergency Medicine; PCP Nurse Practitioner; Visit Provider Internal Medicine
DX: L03.115 Cellulitis of right lower limb (principal); L97.212 Non-pressure chronic ulcer of right calf with fat layer exposed; L97.912 Non-pressure chronic ulcer of unspecified part of right lower leg with fat layer exposed; N17.9 Acute kidney failure, unspecified; Z68.42 Body mass index [BMI] 45.0-49.9, adult; R78.81 Bacteremia; D68.9 Coagulation defect, unspecified; I73.9 Peripheral vascular disease, unspecified; M10.9 Gout, unspecified; E66.01 Morbid (severe) obesity due to excess calories; B95.61 Methicillin susceptible Staphylococcus aureus infection as the cause of diseases classified elsewhere; I27.20 Pulmonary hypertension, unspecified; D53.9 Nutritional anemia, unspecified; B96.5 Pseudomonas (aeruginosa) (mallei) (pseudomallei) as the cause of diseases classified elsewhere; N18.32 Chronic kidney disease, stage 3b; I12.9 Hypertensive chronic kidney disease with stage 1 through stage 4 chronic kidney disease, or unspecified chronic kidney disease; I89.0 Lymphedema, not elsewhere classified; Z66 Do not resuscitate; Z86.718 Personal history of other venous thrombosis and embolism; I87.2 Venous insufficiency (chronic) (peripheral); G47.33 Obstructive sleep apnea (adult) (pediatric); Z91.19 Patient's noncompliance with other medical treatment and regimen; E78.5 Hyperlipidemia, unspecified; K21.9 Gastro-esophageal reflux disease without esophagitis; T45.515A Adverse effect of anticoagulants, initial encounter; Z79.01 Long term (current) use of anticoagulants; Z86.711 Personal history of pulmonary embolism; Z83.3 Family history of diabetes mellitus; F17.200 Nicotine dependence, unspecified, uncomplicated
CPT/HCPCS: 36415; 71045; 80048; 80053; 80202; 83605; 83735; 85025; 85610; 87040; 87070; 87077; 87184; 87186; 87205; 87426; 87640; 93970; 93971; 97110; 97162; 97166; 97530; 97535; 97802; 97803; 99285; J7030; J7040; A4216; J0295; J2405

== ENCOUNTER 2022-09-18 15:40 | Inpatient (IN) | payer MEDICARE, MEDICAID, SELFPAY ==
[2022-09-18] VITALS (21 sets, daily range): BP systolic 74–140; BP diastolic 43–75; PULSE 80–144; RESP 15–30; TEMP 36.6–38.3; O2SAT 93–98; BMI 47.0; BMI 46.6
--- NOTE | 2022-09-18 16:09 | RAD_ITS ---
STUDY: X-RAY CHEST REASON FOR EXAM: Male, 77 years old. Cough. Fever of 104.9. Patient sitting in a chair for 2 days. TECHNIQUE: Single AP portable view of the chest. COMPARISON: September 14, 2021. FINDINGS: The lungs are clear and expanded. There is no demonstrated pleural abnormality. Normal size heart. Normal mediastinum and faheem. Normal visualized pulmonary arteries. Normal visualized aortic arch and descending thoracic aorta. There are diffuse degenerative changes of the visualized thoracic spine. Normal visualized ribs, clavicles, and shoulders. There is no demonstrated abnormality of the visualized soft tissue structures of the upper abdomen. RAD/Chest 1 View (Portable) IMPRESSION: Degenerative changes, as described above. No demonstrated acute cardiopulmonary process. There is no interval change. Electronically Signed: Manuel Davila DO at 17:07 [facility] ,
--- NOTE | 2022-09-18 16:09 | EKG12_ITS ---
Test Reason : FEVER Blood Pressure : / mmHG Vent. Rate : 119 BPM Atrial Rate : 119 BPM P-R Int : 162 ms QRS Dur : 080 ms QT Int : 288 ms P-R-T Axes : 015 013 074 degrees QTc Int : 405 ms Atrial flutter Low voltage QRS Inferior infarct , age undetermined Abnormal ECG Confirmed by JALEESA ELY, ANGEL ([id number]), movie editor JANA SALAZAR ([id number]) on 09/19/2022 8:39:57 AM Referred By: Confirmed By:ANGEL LAZCANO MD
--- NOTE | 2022-09-18 16:10 | EDS_ITS ---
HPI History of Present Illness Chief Complaint: Fever Informant: patient and family Narrative Narrative: Patient presents by EMS from home after family encouraged him to call today. Daughter and Ex-spouse is present. patient history of wound noted to his skin 3 weeks ago on chest. Has been pruritic he has been scratching at it. Skin now scabbing. 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 He is placed on topical nystatin and triamcinolone. Reports had a fever then. Since then increasing cough and diarrhea. Reported temperature on Sunday was 100.7. He is COVID vaccinated. No COVID infections in the past. Denies urinary symptoms. Denies nausea or vomiting. Denies diabetes history. He lives alone he ambulated with a cane confirmed by family however slowly. He was scheduled to see wound care tomorrow. He is on warfarin for history of PE. Denies headache chest pain or abdominal pain. States he is drinking fluids. Reviewed medications on lisinopril, allopurinol, warfarin. [id number] ibuprofen bottles were in the bag. [facility] Medical History (Updated 09/19/22 @ 01:[address] 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 Idiopathic chronic venous hypertension of right leg with ulcer Lower extremity edema Lymphedema Morbid obesity due to excess calories Obesity RAAD (obstructive sleep apnea) Pain in left leg Pain in right leg Pulmonary artery hypertension Pulmonary embolism Pulmonary embolism Transient global amnesia Ulcer of right lower extremity with fat layer exposed Venous stasis dermatitis Home Medications allopurinol 300 mg tablet 300 mg PO DAILY GOUT 09/11/14 [History Last Taken 1 11/16/21] furosemide 40 mg tablet 40 mg PO DAILY FLUID 09/11/14 [History Last Taken 09/16/22] lisinopril 20 mg tablet 20 mg PO DAILY BP 09/11/14 [History Last Taken 09/16/22] cholecalciferol (vitamin D3) 125 mcg (5,000 unit) tablet 5,000 unit PO DAILY SUPPLEMENT 09/14/21 [History Last Taken 09/16/22] warfarin 5 mg tablet 5 mg PO DAILY BLOOD THINNER 09/14/21 [History Last Taken 09/16/22] acidophilus 25 million cell-pectin, citrus 100 mg tablet 1 tab PO 4X/DAY #0 tabs 09/21/21 [Rx Last Taken 09/16/22] ibuprofen 200 mg tablet 400 mg PO Q4H PRN FEAVER 09/18/22 [History Last Taken 09/16/22] nystatin 100,000 unit/gram topical cream 100,000 unit topical DAILY RASH 09/18/22 [History Last Taken 09/16/22] triamcinolone acetonide 0.1 % lotion 1 applic topical TID RASH 09/18/22 [History Last Taken 09/16/22] Allergy/AdvReac Type Severity Reaction Status Date / Time No Known Allergies Allergy Verified 09/18/22 15:50 Family History Father Heart disease Father Diabetes Heart disease Surgical History Status post adenoidectomy Social History Smoking Status: Former smoker Tobacco: How many years used: 5 how long ago did patient quit smokin years ago alcohol intake: current alcohol intake frequency: holidays/special occasions only substance use type: does not use ROS ROS ED Constitutional Constitutional ED: Reports chills and fever(s); Denies sweats Eyes Eyes: Denies change in vision ENT ENT ED: Denies dysphagia or sore throat Cardiovascular Cardiovascular: Denies chest pain, leg edema, palpitations or racing heartbeat Respiratory/Chest Respiratory/Chest: Reports cough; Denies dyspnea or dyspnea on exertion Gastrointestinal Gastrointestinal: Reports diarrhea; Denies abdominal pain, nausea or vomiting Genitourinary Genitourinary ED: Denies dysuria, hematuria or urinary frequency Musculoskeletal Musculoskeletal: Denies back pain, extremity pain or neck pain Integumentary Reports rash and wounds Neurologic Neurologic: Reports weakness; Denies headache(s) or paresthesias EXAM Physical Exam Const Vital Signs: 09/18/22 15:43 09/18/22 15:50 09/18/22 15:51 Temperature 98.9 F 98.9 F Temperature Source Oral Oral Pulse Rate 130 H 130 H Respiratory Rate 25 H 25 H Respiratory Pattern Tachypnea Blood Pressure 140/61 H 140/61 H Blood Pressure Mean 87 87 Blood Pressure Position Pulse Ox 94 94 Oxygen Delivery Method Room Air Room Air 09/18/22 16:37 09/18/22 17:50 09/18/22 17:41 Temperature 101 F H Temperature Source Oral Pulse Rate 140 H 144 H Respiratory Rate 24 H Respiratory Pattern Blood Pressure 115/57 L Blood Pressure Mean 76 Blood Pressure Position Pulse Ox 95 95 Oxygen Delivery Method Room Air Room Air 09/18/22 18:00 09/18/22 18:30 09/18/22 18:51 Temperature 101 F H Temperature Source Oral Pulse Rate 140 H 144 H 110 H Respiratory Rate 25 H Respiratory Pattern Blood Pressure 110/62 74/62 L Blood Pressure Mean 78 66 Blood Pressure Position Pulse Ox 95 Oxygen Delivery Method Room Air 09/18/22 18:59 09/18/22 19:00 09/18/22 19:58 Temperature 101 F H Temperature Source Oral Pulse Rate 103 H 103 H Respiratory Rate 15 15 Respiratory Pattern Blood Pressure 86/55 L 86/55 L 85/44 L Blood Pressure Mean 65 65 57 Blood Pressure Position Pulse Ox 97 97 Oxygen Delivery Method Room Air Room Air 09/18/22 21:00 09/18/22 21:00 09/18/22 21:10 Temperature 99.8 F H 98.7 F Temperature Source Oral Oral Pulse Rate 100 100 97 Respiratory Rate 19 H 20 H Respiratory Pattern Blood Pressure 74/53 L 74/43 L Blood Pressure Mean 60 53 Blood Pressure Position Pulse Ox 95 95 Oxygen Delivery Method Room Air 09/18/22 21:23 Temperature 98.7 F Temperature Source Temporal Pulse Rate 93 Respiratory Rate 19 H Respiratory Pattern Blood Pressure 75/75 L Blood Pressure Mean 75 Blood Pressure Position Sitting Pulse Ox 95 Oxygen Delivery Method Positive well nourished, well developed and obese Constitutional Narrative: Fatigued, nontoxic General Appearance ED: well developed Nutritional Appearance: obese HEENT Reports dry mucous membranes normocephalic and atraumatic Mouth ED: Yes dry mucous membranes Mouth: dry mucous membranes Eyes PERRL, EOMs intact bilaterally and conjunctivae normal General Eye ED: Yes normal appearance of both eyes Neck no lymphadenopathy and supple General: Negative for tenderness Chest Wall Chest Narrative: Multiple patches of excoriations with scabbing of skin bilateral chest wall. Underneath bilateral pectorals with excoriations of skin, tender to palpation. There is no active bleeding. No indurations. No exudates. Additional scabbing patches noted left upper arm. Chest: Negative for tenderness Resp normal respiratory effort and normal air movement Effort and Inspection: symmetric chest movement; Negative for respiratory distress Cardio regular rhythm and no murmurs Rate: tachycardic Peripheral Pulses: pulses 2+ throughout GI normal to inspection, nondistended, normoactive bowel sounds and non-tender Palpation: Negative for guarding or rebound tenderness present Back/Spine no CVA tenderness and no thoracic nor lumbar tenderness Back/Spine Narrative: No rashes or scabbing noted on the back. Extremity Extremity Narrative: Chronic lymphedema lower extremities, however there is increasing erythema lower extremities distal legs left greater than right. Left was warm to palpation. T here is no blanching. Right lower leg patch of skin sloughing medial distal leg. There is no active bleeding. General Extremety ED: Yes edema; Negative for tenderness General Extremity: edema Neuro oriented x3, CN's II-XII intact bilaterally and no sensory deficits noted Sensorium / Orientation: awake and alert Skin Skin Narrative: See above Sepsis Attestation Sepsis Alert: Yes Sepsis Attestation: Agree w/Sepsis Date exam was performed: 09/18/22 Time exam was performed: 20:00 Possible Source of Sepsis: Skin/soft tissue Sepsis Organ Dysfunction Criteria Present: SBP < 90 mmHg or MAP < 65 mmHg Fluid Resuscitation Fluid resuscitation indicated?: Yes Fluid Resuscitation ordered: Lesser volume fluid bolus ordered Reason for lesser fluid bolus:: Concern for fluid overload Sepsis Note Sepsis Attestation: Sepsis re-evaluation was performed Response to fluids: Non Fluid responsive hypotension and Vasopressors started MDM MDM MDM Narrative Medical decision making narrative: Patient tachycardic with dry mucosal membranes. He reports diarrhea cough symptoms with fevers and chills. COVID and flu testing sent. Sepsis labs were ordered. Concern multiple infectious regions with upper respiratory versus cellulitis of the left lower extremity without blanching and possible secondary infection from these upper chest excoriations and scabbing. Also had diarrhea denies any recent C. difficile. Stool studies also ordered. He is given IV fluids. Will need broad-spectrum antibiotics and plan admission. 1850: Patient white count 8.8 hemoglobin 8.9 stable from previous. Creatinine 2.5 slightly elevated from 2 from previous. He had dry mucosal membranes there is dehydration component. Lactic acid normal at 1.7 blood cultures were pending. Urine is essentially negative chest x-ray 1 view reviewed by myself and read by radiology no infiltrates. His COVID influenza negative. Reevaluation and patient spiked a fever in the ED of 101. Stools were not collected as of yet. No C. difficile risk factors. He is covered Zosyn and vancomycin. Edition on reevaluation heart rate was in the 140s, blood pressure down to the 60s, repeating EKG reporting sinus tachycardia however appears more concerning for atrial flutter. No dysrhythmia history. I prepped the patient discuss cardioversion he was supratherapeutic on his INR at 4. However during discussion with patient family he took a deep breath and he converted with heart rate back down into the 90s to low 100s. Blood pressure is improving. Continue on normal saline. Further discussion with family he was bacteremic a year ago from E. coli UTI. This is part of the differential. Multiple potential infection regions currently. Will speak with hospital team for admission. Discussed with hospitalist Dr. Ruiz, patient evaluated in normal sinus rhythm however blood pressure soft map of 65. He wanted improvement for disposition versus ICU versus PCU. Give additional fluids and is currently remained hypotensive. Discussed with patient family Central line placement. Risk and benefit discussed. This was placed right IJ with no complications. Post chest x-ray reviewed by myself read by radiology noted no pneumothorax is was placed in the right superior vena cava. After placement blood pressure systolic in 70s he is ordered for Levophed. He was placed in the ICU. He is meeting septic shock criteria. Procedure note: Central line placement. Written consent obtained. Risk and benefits discussed specially with a supratherapeutic INR. Preprocedure ultrasound good right internal jugular. He is placed in Trendelenburg. Skin was prepped using ChloraPrep. Full sterile drape 3 was used. Ultrasound-guided evaluation, skin and exercise, Seldinger technique with ultrasound first take with dark blood return. Guidewire was threaded, skin incision, dilated. Triple-lumen cath 7.5 cm Romanian placed at 15 cm. This was secured with sutures. All 3 lines karen and flushed. Dressing was placed by myself. Patient tolerated procedure well. Post films were reviewed. Lab Data Attestation: I reviewed the patient's lab results. Labs: Laboratory Results - last 24 hr 09/18/22 09/18/22 09/18/22 16:30 16:30 16:30 WBC 8.8 RBC 2.95 L Hgb 8.9 L Hct 27.5 L MCV 93.2 MCH 30.2 MCHC 32.4 RDW Std Deviation 50.4 H RDW Coeff of Adiel 15.0 H Plt Count 161 MPV 10.2 Immature Gran % (Auto) 0.300 Neut % (Auto) 95.0 H Lymph % (Auto) 1.6 L Carlton % (Auto) 2.5 Eos % (Auto) 0.5 Baso % (Auto) 0.1 Absolute Neuts (auto) 8.4 H Absolute Lymphs (auto) 0.14 L Nucleated RBC % 0 Differential Comment SCANNED PT 38.7 H INR 4.0 H* APTT 83.9 H Sodium 139 Potassium 4.3 Chloride 112 H Carbon Dioxide 18.0 L Anion Gap 9 BUN 52 H Creatinine 2.52 H Estim Creat Clear Calc 26.94 Est GFR (MDRD) Af Amer 32 L Est GFR (MDRD) Non-Af 27 L BUN/Creatinine Ratio 20.6 H Glucose 149 H Lactic Acid Calcium 8.8 Total Bilirubin 1.00 AST 39 H ALT 34 Alkaline Phosphatase 181 H Total Protein 7.4 Albumin 2.8 L Globulin 4.6 H Albumin/Globulin Ratio 0.6 L Urine Color Urine Clarity Urine pH Ur Specific [place] Urine Protein Urine Glucose (UA) Urine Ketones Urine Occult Blood Urine Nitrite Urine Bilirubin Urine Urobilinogen Ur Leukocyte Esterase Urine RBC Urine WBC Ur Squamous Epith Cells Urine Bacteria Urine Mucus 09/18/22 09/18/22 16:30 17:37 WBC RBC Hgb Hct MCV MCH MCHC RDW Std Deviation RDW Coeff of Adiel Plt Count MPV Immature Gran % (Auto) Neut % (Auto) Lymph % (Auto) Carlton % (Auto) Eos % (Auto) Baso % (Auto) Absolute Neuts (auto) Absolute Lymphs (auto) Nucleated RBC % Differential Comment PT INR APTT Sodium Potassium Chloride Carbon Dioxide Anion Gap BUN Creatinine Estim Creat Clear Calc Est GFR (MDRD) Af Amer Est GFR (MDRD) Non-Af BUN/Creatinine Ratio Glucose Lactic Acid 1.7 Calcium Total Bilirubin AST ALT Alkaline Phosphatase Total Protein Albumin Globulin Albumin/Globulin Ratio Urine Color Yellow Urine Clarity Clear Urine pH 5.0 Ur Specific [place] 1.020 Urine Protein 30 H Urine Glucose (UA) Normal Urine Ketones Negative Urine Occult Blood 250 H Urine Nitrite Negative Urine Bilirubin Negative Urine Urobilinogen 1 H Ur Leukocyte Esterase 25 H Urine RBC 10-25 SEEN Urine WBC 0-5 SEEN Ur Squamous Epith Cells 0 SEEN Urine Bacteria 1+ Urine Mucus 0 SEEN Radiography Diagnostic Testing: Clinical Impression(s) from Imaging Studies Chest X-Ray 09/18/22 16:09 IMPRESSION: Degenerative changes, as described above. No demonstrated acute cardiopulmonary process. There is no interval change. Electronically Signed: Manuel Davila DO at 17:07 EST Reading Location ID and State: [place] / [place] Tel [phone], Service support , Chest X-Ray 09/18/22 21:20 IMPRESSION: Right jugular central venous catheter without pneumothorax or other major interval change. Electronically Signed: Manuel Davila DO at 21:35 EST Reading Location ID and State: [place] / [place] Tel [phone], Service support , EKG Initial EKG: Attestation: I personally reviewed and interpreted this EKG as follows: Comments: EKG #1 was sinus tachycardia with no ST or T wave changes. EKG #2 concerns for atrial flutter 2-1 heart rate 140s with narrow complex tachycardia. Critical Care Time Critical Care Time: Yes Critical care time (excluding procedures): 30-74 minutes, Discussing w/Patient &/or Family/Vision Rehabilitation Therapist, Discussing w/Consultants, Arranging Admission or Transfer, Performing Direct Patient Care at Bedside and - (45 minutes) Discharge Plan Dx/Rx/DC Orders Clinical Impression: Fever, Cellulitis, Atrial flutter, Acute diarrhea, Bronchitis, Septic shock, Hypotension Disposition Disposition: [facility] Discharge Date/Time: 09/18/22 22:04
[2022-09-18] MEDS: 0.9% Normal Saline 1,000 ML 999 ML IV ×3 (16:37→19:40)
--- NOTE | 2022-09-18 16:41 | CM.ED ---
Per RN Chidi patient reports that he has been sitting in his chair for 2 days and has sores everywhere. Past history of bed bugs. JACKSON called Jerome at [facility] and left voice mail message for Jerome regarding patient. Whitney PERALTA
[2022-09-18 16:50] LABS: Absolute Lymphocyte Count 0.14 X10^3/uL (0.83-4.51); Absolute Neutrophil Count 8.4 X10^3/uL (2.0-7.7); Basophil# 0.01 X10^3/uL; Basophil% 0.1 % (0-1); Eosinophil# 0.04 X10^3/uL; Eosinophils% 0.5 % (0-5); Hematocrit 27.5 % (40-54); Hemoglobin 8.9 g/dL (13.0-16.5); Lymphocyte # 0.14 X10^3/ul (0.83-4.51); Lymphocyte % 1.6 % (19-41); Mean Corp Hgb Conc 32.4 g/dL (32-36); Mean Corpuscular Hgb 30.2 pg (27.0-32.0); Mean Corpuscular Volume 93.2 fL (80-94); Mean Platelet Vol. 10.2 fl (6.2-12.0); Monocyte# 0.22 X10^3/uL; Monocyte% 2.5 % (0-10); NRBC Flagged by Analyzer 0 % (0-5); Neutrophil # 8.37 X10^3/uL (2.7-7.7); POSITIVE DIFFERENTIAL YES; Platelet Count 161 K/mm3 (150-450); RBC Distribution Width SD 50.4 fl (35.1-43.9); Red Blood Count 2.95 M/mm3 (4.6-6.2); White Blood Count 8.8 K/mm3 (4.4-11.0)
[2022-09-18 16:53] LABS: Differential Indicated SCAN CRITERIA MET
[2022-09-18 16:55] LABS: ALB/GLOB Ratio 0.6 RATIO (0.9-2.4); AST(SGOT) 39 U/L (15-37); Alanine Aminotransfer ALT/SGPT 34 U/L (16-61); Albumin, Serum 2.8 g/dL (3.2-5.0); Alkaline Phosphatase 181 U/L (45-117); Anion Gap 9 (5-15); BUN 52 mg/dL (7-18); BUN/Creat Ratio 20.6 RATIO (10-20); Calcium,Total 8.8 mg/dL (8.5-10.1); Chloride 112 mmol/L (98-107); Creatinine, Serum 2.52 mg/dL (0.70-1.30); EST Glomerular Filtration Rate 27 mL/min (>60); Est Glom Filt Rate - Afr Amer 32 mL/min (>60); Estimated Creatinine Clearance 26.94 ml/min; Globulin 4.6 g/dL (2.2-4.2); Glucose 149 mg/dL (74-106); Potassium 4.3 mmol/L (3.5-5.1); Protein, Total 7.4 g/dL (6.4-8.2); Sodium Level 139 mmol/L (136-145)
[2022-09-18 17:06] LABS: Prothrombin Time (Protime)PT. 38.7 SECONDS (11.7-14.9)
[2022-09-18 17:07] LABS: Partial Thromboplast Time 83.9 Seconds (24.1-36.2)
[2022-09-18 17:09] LABS: Lactic Acid 1.7 mmol/L (0.4-1.9)
[2022-09-18 17:16] LABS: Differential Comment SCANNED
[2022-09-18 17:48] LABS: Mucous, Urine 0 SEEN /hpf (<or=2+); Squamous Epithelial Cells - UA 0 SEEN /hpf (0-5)
[2022-09-18 18:00] LABS: Color, Urine Yellow (Yellow); Glucose, Dipstick Normal (Normal); Ketone-Dipstick Negative (Negative); Leukocyte Esterase-Dipstick 25 /ul (Negative); Nitrite-Dipstick Negative (Negative); Occult Blood-Urine 250 /ul (Negative); Protein-Dipstick 30 mg/dl (Negative); Urine Bilirubin Dipstick Negative (Negative); Urine Clarity Clear (Clear); Urine Urobilinogen 1 mg/dl (Normal)
[2022-09-18 18:20] LABS: Bacteria 1+ /hpf (None Seen); Red Blood Cells-Urine 10-25 SEEN /hpf (0-5); White Blood Cells 0-5 SEEN /hpf (0-5)
--- NOTE | 2022-09-18 18:38 | EKG12_ITS ---
Test Reason : REPEAT Blood Pressure : / mmHG Vent. Rate : 140 BPM Atrial Rate : 140 BPM P-R Int : 128 ms QRS Dur : 076 ms QT Int : 298 ms P-R-T Axes : 039 016 123 degrees QTc Int : 454 ms Atrial flutter Low voltage QRS Inferior infarct , age undetermined Cannot rule out Anterior infarct , age undetermined Marked ST abnormality, possible lateral subendocardial injury Abnormal ECG Confirmed by JALEESA ELY, ANGEL ([id number]), offline editor JANA SALAZAR ([id number]) on 09/19/2022 8:40:17 AM Referred By: TL Confirmed By:ANGEL LAZCANO MD
[2022-09-18] MEDS: Acetaminophen 500 MG Tablet 1000 MG PO (18:47)
--- NOTE | 2022-09-18 21:20 | RAD_ITS ---
STUDY: X-RAY CHEST REASON FOR EXAM: Male, 77 years old. Line placement. TECHNIQUE: Single AP portable view of the chest. COMPARISON: September 18, 2022 (1639 hours) FINDINGS: Right jugular central venous catheter with tip in the proximal superior vena cava. No pneumothorax No new pulmonary infiltrate or mass. There is no demonstrated pleural abnormality. Normal size heart. There is no change in the mediastinum, faheem, pulmonary arteries or aorta. No osseous changes. There is no demonstrated abnormality of the visualized soft tissue structures of the upper abdomen. RAD/Chest 1 View (Portable) IMPRESSION: Right jugular central venous catheter without pneumothorax or other major interval change. Electronically Signed: Manuel Davila DO at 21:35 EST ,
--- NOTE | 2022-09-18 22:09 | HP.PCM.HOS_ITS ---
HPI - General General Date of Admission: 09/18/22 Date of Service: 09/18/22 Chief Complaint: Debility, lethargy HPI Narrative BLANCA SHARMA, is a 77 M who presents to the emergency room at [facility] after being brought in by squad due to debility and immobility at home. Patient was also running a temperature, he had multiple excoriated areas over his chest and also his knees. Review of systems was not possible to be obtained from the patient as he stated he was weak over the past couple of days and he was too debilitated to remember anything. Patient did say that he thought he had bedbugs. Patient was noted to be hypotensive in the emergency room, he was given IV fluids, labs were obtained, his white blood cell count was normal at 8.8, hemoglobin was 8.9, INR was 4, chemistry panel revealed a creatinine of 2.52, BUN was 52, glucose was 149, and urinalysis revealed 10-25 RBCs and +1 bacteria in the urine. Patient's chest x-ray showed no acute cardiopulmonary process with no interval change from his last chest x-ray. Patient briefly went into atrial flutter in the emergency room, cardioversion was considered but the patient converted to normal sinus rhythm on his own. Patient's blood pressure remained low in the emergency room despite administration of several liters of fluid, I requested a central line be placed and the patient was placed on IV pressors for presumed septic shock-etiology appears to be a bacteremia from multiple skin excoriations. Patient was started on Zosyn and vancomycin in the ER, I elected to continue these antibiotics for now, critical care will see the patient in the morning. [facility] Medical History (Updated 09/18/22 @ 21:[address] 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 Idiopathic chronic venous hypertension of right leg with ulcer Lower extremity edema Lymphedema Morbid obesity due to excess calories Obesity RAAD (obstructive sleep apnea) Pain in left leg Pain in right leg Pulmonary artery hypertension Pulmonary embolism Pulmonary embolism Transient global amnesia Ulcer of right lower extremity with fat layer exposed Venous stasis dermatitis Home Medications allopurinol 300 mg tablet 300 mg PO DAILY GOUT 09/11/14 [History Last Taken 09/16/22] furosemide 40 mg tablet 40 mg PO DAILY FLUID 09/11/14 [History Last Taken 09/16/22] lisinopril 20 mg tablet 20 mg PO DAILY BP 09/11/14 [History Last Taken 09/16/22] cholecalciferol (vitamin D3) 125 mcg (5,000 unit) tablet 5,000 unit PO DAILY SUPPLEMENT 09/14/21 [History Last Taken 09/16/22] warfarin 5 mg tablet 5 mg PO DAILY BLOOD THINNER 09/14/21 [History Last Taken 09/16/22] acidophilus 25 million cell-pectin, citrus 100 mg tablet 1 tab PO 4X/DAY #0 tabs 09/21/21 [Rx Last Taken 09/16/22] ibuprofen 200 mg tablet 400 mg PO Q4H PRN FEAVER 09/18/22 [History Last Taken 09/16/22] nystatin 100,000 unit/gram topical cream 100,000 unit topical DAILY RASH 08/30 11/19 [History Last Taken 09/16/22] triamcinolone acetonide 0.1 % lotion 1 applic topical TID RASH 09/18/22 [History Last Taken 09/16/22] Allergy/AdvReac Type Severity Reaction Status Date / Time No Known Allergies Allergy Verified 09/18/22 15:50 Family History Father Heart disease Father Diabetes Heart disease Surgical History Status post adenoidectomy Social History Smoking Status: Former smoker Tobacco: How many years used: 5 how long ago did patient quit smokin years ago alcohol intake: current alcohol intake frequency: holidays/special occasions only substance use type: does not use ROS ROS Narrative Review of systems was unobtainable from the patient due to confusion Vital Signs Vital Signs Vital Signs: 09/18/22 15:43 09/18/22 15:50 09/18/22 15:51 Temperature 98.9 F 98.9 F Temperature Source Oral Oral Pulse Rate 130 H 130 H Respiratory Rate 25 H 25 H Respiratory Pattern Tachypnea Blood Pressure 140/61 H 140/61 H Blood Pressure Mean 87 87 Blood Pressure Position Pulse Ox 94 94 Oxygen Delivery Method Room Air Room Air 09/18/22 16:37 09/18/22 17:50 09/18/22 17:41 Temperature 101 F H Temperature Source Oral Pulse Rate 140 H 144 H Respiratory Rate 24 H Respiratory Pattern Blood Pressure 115/57 L Blood Pressure Mean 76 Blood Pressure Position Pulse Ox 95 95 Oxygen Delivery Method Room Air Room Air 09/18/22 18:00 09/18/22 18:30 09/18/22 18:51 Temperature 101 F H Temperature Source Oral Pulse Rate 140 H 144 H 110 H Respiratory Rate 25 H Respiratory Pattern Blood Pressure 110/62 74/62 L Blood Pressure Mean 78 66 Blood Pressure Position Pulse Ox 95 Oxygen Delivery Method Room Air 09/18/22 18:59 09/18/22 19:00 09/18/22 19:58 Temperature 101 F H Temperature Source Oral Pulse Rate 103 H 103 H Respiratory Rate 15 15 Respiratory Pattern Blood Pressure 86/55 L 86/55 L 85/44 L Blood Pressure Mean 65 65 57 Blood Pressure Position Pulse Ox 97 97 Oxygen Delivery Method Room Air Room Air 09/18/22 21:00 09/18/22 21:00 09/18/22 21:10 Temperature 99.8 F H 98.7 F Temperature Source Oral Oral Pulse Rate 100 100 97 Respiratory Rate 19 H 20 H Respiratory Pattern Blood Pressure 74/53 L 74/43 L Blood Pressure Mean 60 53 Blood Pressure Position Pulse Ox 95 95 Oxygen Delivery Method Room Air 09/18/22 21:23 Temperature 98.7 F Temperature Source Temporal Pulse Rate 93 Respiratory Rate 19 H Respiratory Pattern Blood Pressure 75/75 L Blood Pressure Mean 75 Blood Pressure Position Sitting Pulse Ox 95 Oxygen Delivery Method Weight Weight: 157.5 kg Body Mass Index (BMI) 47.0 Physical Exam Const alert Constitutional Narrative: Patient appears much older than stated age, he has poor hygiene, he exhibits some confusion. General Appearance: cooperative and well developed Orientation / Consciousness: awake, oriented to person and oriented to place HEENT normocephalic, head/scalp atraumatic, hearing grossly normal bilaterally and moist oral mucous membranes Eyes PERRL, EOMs intact bilaterally and conjunctivae normal Neck supple, no JVD, thyroid normal and no carotid bruits General: trachea midline Resp normal respiratory effort, no retractions, no use of accessory muscles and clear to auscultation bilaterally Auscultation: Negative for rales, rhonchi or wheezes Cardio regular rate, regular rhythm, S1 normal heart sound, S2 normal heart sound, no m urmurs, no rub and no gallops GI normal to inspection, nondistended, normoactive bowel sounds, soft to palpation, non-tender and non-distended GI Narrative: Patient is morbidly obese Extremity Extremity Narrative: Chronic lymphedematous changes are noted over the patient's lower extremity Skin Skin Narrative: There are multiple eschared areas over the skin of the chest, abdomen, and to a lesser extent the lower extremities. The eschars on the trunk and chest area are black and several centimeters in diameter. There are no eschared areas on the patient's back. Neuro oriented x3, CN's II-XII intact bilaterally, no focal motor deficits and no sen [place] deficits noted Sensorium / Orientation: awake, alert, oriented to person and oriented to place Speech: speech normal Psych affect normal Results Lab / Micro Data Result Diagrams: 09/18/22 16:30 09/18/22 16:30 Labs: Laboratory Results - last 24 hr 09/18/22 16:30: WBC 8.8, RBC 2.95 L, Hgb 8.9 L, Hct 27.5 L, MCV 93.2, MCH 30.2, MCHC 32.4, RDW Std Deviation 50.4 H, RDW Coeff of Adiel 15.0 H, Plt Count 161, MPV 10.2, Immature Gran % (Auto) 0.300, Neut % (Auto) 95.0 H, Lymph % (Auto) 1.6 L, [place] % (Auto) 2.5, Eos % (Auto) 0.5, Baso % (Auto) 0.1, Absolute Neuts (auto) 8.4 H, Absolute Lymphs (auto) 0.14 L, Nucleated RBC % 0, Differential Comment SCANNED 09/18/22 16:30: PT 38.7 H, INR 4.0 H*, APTT 83.9 H 09/18/22 16:30: Sodium 139, Potassium 4.3, Chloride 112 H, Carbon Dioxide 18.0 L , Anion Gap 9, BUN 52 H, Creatinine 2.52 H, Estim Creat Clear Calc 26.94, Est GFR (MDRD) Af Amer 32 L, Est GFR (MDRD) Non-Af 27 L, BUN/Creatinine Ratio 20.6 H , Glucose 149 H, Calcium 8.8, Total Bilirubin 1.00, AST 39 H, ALT 34, Alkaline Phosphatase 181 H, Total Protein 7.4, Albumin 2.8 L, Globulin 4.6 H, Albumin/Globulin Ratio 0.6 L 09/18/22 16:30: Lactic Acid 1.7 09/18/22 17:37: Urine Color Yellow, Urine Clarity Clear, Urine pH 5.0, Ur Specific [place] 1.020, Urine Protein 30 H, Urine Glucose (UA) Normal, Urine Ketones Negative, Urine Occult Blood 250 H, Urine Nitrite Negative, Urine Bilirubin Negative, Urine Urobilinogen 1 H, Ur Leukocyte Esterase 25 H, Urine RBC 10-25 SEEN, Urine WBC 0-5 SEEN, Ur Squamous Epith Cells 0 SEEN, Urine Bacteria 1+, Urine Mucus 0 SEEN Micro: Microbiology 09/18/22 16:19 Nasal Secretion SARS-CoV-2 & FLU Antigen (Rapid) - Final Radiology Impression Chest X-Ray 09/18/22 16:09 IMPRESSION: Degenerative changes, as described above. No demonstrated acute cardiopulmonary process. There is no interval change. Electronically Signed: Manuel Davila DO at 17:07 EST Reading Location ID and State: [address] [place] [address] Tel [phone], Service support , Chest X-Ray 09/18/22 21:20 IMPRESSION: Right jugular central venous catheter without pneumothorax or other major interval change. Electronically Signed: Manuel Davila DO at 21:35 EST Reading Location ID and State: [place] / [place] Tel [phone], Service support , Assessment & Plan Assessment/Plan (1) Cellulitis: PLAN: Plan 1. Septic shock-secondary to areas of cellulitis over the patient's chest, trunk, and knees-patient will be admitted to ICU, central line was placed in the emergency room and the patient was placed on IV Levophed. 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 Charges/Coding Visit Charges Inpatient E&M: 63480 Init Hosp L3
[2022-09-18] MEDS: 0.9% Normal Saline 1,000 ML 125 ML IV (23:29)
[2022-09-19] VITALS (31 sets, daily range): BP systolic 91–148; BP diastolic 48–98; PULSE 79–108; RESP 18–33; TEMP 36.7–38.4; O2SAT 93–99
--- NOTE | 2022-09-19 01:14 | PCM.RX.CS ---
Consult Pharmacy has been consulted to manage selected antiobiotic: Vancomycin Type of Consult: New start Suspected Infection: Sepsis, Skin/Soft tissue Labs: Sodium 139 mmol/L (136-145) 09/18/22 16:30 Potassium 4.3 mmol/L (3.5-5.1) 09/18/22 16:30 Chloride 112 mmol/L (98-107) H 09/18/22 16:30 Carbon Dioxide 18.0 mmol/L (21.0-32.0) L 09/18/22 16:30 Anion Gap 9 (5-15) 09/18/22 16:30 BUN 52 mg/dL (7-18) H 09/18/22 16:30 Creatinine 2.52 mg/dL (0.70-1.30) H 09/18/22 16:30 Est GFR (MDRD) Af Amer 32 mL/min (>60) L 09/18/22 16:30 Est GFR (MDRD) Non-Af 27 mL/min (>60) L 09/18/22 16:30 BUN/Creatinine Ratio 20.6 RATIO (10-20) H 09/18/22 16:30 Glucose 149 mg/dL (74-106) H 09/18/22 16:30 Microbiology: Microbiology 09/18/22 16:19 Nasal Secretion SARS-CoV-2 & FLU Antigen (Rapid) - Final Weight used for dosin.7 kg Estimated Creatinine Clearance: 38.3 Goal Trough: 15-20 mcg/mL Pharmacy Plan for Drug Dosing: Pharmacy Service will continue to monitor and adjust dosing as required. Medications Vancomycin HCl 1,500 mg/ (Sodium Chloride) 530 mls @ 250 mls/hr IV Q24H [place] Discontinued Medications Vancomycin HCl 2,000 mg/ (Sodium Chloride) 540 mls @ 250 mls/hr IV X1 ONE Stop: 09/18/22 20:37 Last Admin: 09/18/22 22:46 Dose: Infused Follow-Up Labs: Trough Vancomycin Labs to be done on [date and time ordered]: 09/20 @ 5733
[2022-09-19 03:56] LABS: Absolute Neutrophil Count 17.3 X10^3/uL (2.0-7.7); Basophil# 0.04 X10^3/uL; Basophil% 0.2 % (0-1); Eosinophil# 0.01 X10^3/uL; Eosinophils% 0.1 % (0-5); Hematocrit 25.4 % (40-54); Hemoglobin 8.3 g/dL (13.0-16.5); Lymphocyte % 2.1 % (19-41); Mean Corp Hgb Conc 32.7 g/dL (32-36); Mean Corpuscular Hgb 30.9 pg (27.0-32.0); Mean Corpuscular Volume 94.4 fL (80-94); Mean Platelet Vol. 9.9 fl (6.2-12.0); Monocyte% 4.3 % (0-10); NRBC Flagged by Analyzer 0 % (0-5); Neutrophil # 17.31 X10^3/uL (2.7-7.7); Neutrophil % 92.8 % (47-70); POSITIVE DIFFERENTIAL YES; POSITIVE MORPHOLOGY YES; Platelet Count 181 K/mm3 (150-450); RBC Distribution Width CV 15.1 % (11.6-14.6); RBC Distribution Width SD 52.1 fl (35.1-43.9); Red Blood Count 2.69 M/mm3 (4.6-6.2); White Blood Count 18.7 K/mm3 (4.4-11.0)
[2022-09-19 04:02] LABS: Differential Indicated SCAN CRITERIA MET
[2022-09-19 04:12] LABS: Prothrombin Time (Protime)PT. 44.5 SECONDS (11.7-14.9)
[2022-09-19 04:15] LABS: Differential Comment SCANNED
[2022-09-19 04:17] LABS: International Normalized Ratio 4.8
[2022-09-19 04:21] LABS: Anion Gap 9 (5-15); BUN 52 mg/dL (7-18); Calcium,Total 7.9 mg/dL (8.5-10.1); Chloride 114 mmol/L (98-107); EST Glomerular Filtration Rate 26 mL/min (>60); Est Glom Filt Rate - Afr Amer 31 mL/min (>60); Estimated Creatinine Clearance 26.12 ml/min; Glucose 150 mg/dL (74-106); Potassium 4.3 mmol/L (3.5-5.1); Sodium Level 140 mmol/L (136-145)
[2022-09-19] MEDS: 0.9% Normal Saline 1,000 ML 125 ML IV ×3 (06:22→21:40)
--- NOTE | 2022-09-19 08:03 | CON.PCM.CC_ITS ---
Assessment & Plan Assessment/Plan (1) Atrial flutter: (2) Sepsis: PLAN: Plan RECOMMENDATIONS: 1. Continue broad-spectrum antibiotics pending cultures 2. Discontinue vancomycin tomorrow if no gram positives noted 3. Wound care to evaluate skin lesions 4. Possible outpatient evaluation by vascular surgery 5. Possible transfer from the intensive care unit later today IMPRESSIONS: 1. Gram-negative septic shock secondary to probable cellulitis Patient with multiple open wounds throughout trunk and legs. Clinical hale spicion for E. coli as an etiology. Patient does have gram-negative growing in his blood cultures at this time. Patient has been taken off of Levophed. We will continue vancomycin for another 24 hours, but if no gram positives noted by that time, vancomycin can likely be discontinued. Will wean antibiotic spectrum once sensitivities are available. Patient appears to be doing much better at th is time off of pressor therapy. Patient will need wound care to evaluate skin wounds. Healing is complicated by history of vasculopath. 2. Paroxysmal a flutter with RVR Patient with 2 and 1 block on presentation. Patient appears to be in sinus rhythm at this time. Patient is fully anticoagulated. We will address electrolytes as necessary. Defer to hospitalist on whether cardiology needs to be involved. 3. Supratherapeutic INR Clinical suspicion for retention of warfarin secondary to problem #1. Patient not actively bleeding right now, so daily checks of INR with holding of Coumadin would be appropriate. INR will be prolonged given need for antibiotics 4. Morbid obesity/chronic lymphedema/history of uncontrolled RAAD/self- neglect/history of PEs Complicates care, management, recovery and prognosis. Wound care to evaluate wounds skin defects. Patient likely would benefit from a social work evaluation. Patient may require rehab/SNF given decline. HPI Consult Data Date of Consult: 09/19/22 HPI Narrative Reason for Consultation: Sepsis HPI Narrative: BLANCA SHARMA is a 77 M, with past medical history listed below, who presents to [facility] 09/18/2022 secondary to fever. Patient has been seen by his PCP recently and placed on antibiotics, but lives at home alone. Patient has not reported any urinary symptoms. Patient had reported some diarrhea. Patient is anticoagulated at baseline given history of PE on. Patient does take ibuprofen intermittently. Patient reportedly developed skin wounds approximately 3 weeks ago that were described as pruritic and the patient had reportedly been scratching them. In the ER, patient was febrile at 101 ?F and hypotensive at 85/44. Patient was tachycardic as high as 144 bpm. Laboratory data showed white blood cell count of 8.8, hemoglobin of 8.9 and platelets of 161. INR was elevated at 4. Patient did have a significant elevation of creatinine to 2.52 with a BUN of 52. Glucose was elevated at 149 and alkaline phosphatase was 181. Lactate was within normal limits. Urinalysis was not suggestive of acute infection. Chest x-ray showed no acute changes after central line placed. Patient did have an EKG suggestive of a flutter with 2-1 block and rates in the 140s. Patient was treated with IV fluids and antibiotics. Patient remained hypotensive, so central line was placed and patient was initiated on pressors. Overnight in the intensive care unit, patient's blood pressure slowly improved. Patient has been able to be taken off of Levophed as of approximately 6:00 this morning. Patient reports subjectively he feels much improved compared to previous. Patient is not reporting any current pains, but still has that his pruritus. Patient is unable to provide significant amount of additional information about his past medical history. Patient states he has had issues with wounds in the past. Patient does report bleeding from picking, but no melena, hematochezia or epistaxis. Patient is a relatively poor historian, but review of systems otherwise negative from a constitutional, HEENT, respiratory, cardiovascular, GI, genitourinary, musculoskeletal, skin, neurologic, psychiatric and hematologic system unless stated above. [facility] Medical History (Updated 09/19/22 @ 15:[address] 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 Idiopathic chronic venous hypertension of right leg with ulcer Lower extremity edema Lymphedema Morbid obesity due to excess calories Obesity RAAD (obstructive sleep apnea) Pain in left leg Pain in right leg Pulmonary artery hypertension Pulmonary embolism Pulmonary embolism Transient global amnesia Ulcer of right lower extremity with fat layer exposed Venous stasis dermatitis Home Medications allopurinol 300 mg tablet 300 mg PO DAILY GOUT 09/11/14 [History Last Taken 09/16/22] furosemide 40 mg tablet 40 mg PO DAILY FLUID 09/11/14 [History Last Taken 09/16/22] lisinopril 20 mg tablet 20 mg PO DAILY BP 09/11/14 [History Last Taken 09/16/22] cholecalciferol (vitamin D3) 125 mcg (5,000 unit) tablet 5,000 unit PO DAILY SUPPLEMENT 09/14/21 [History Last Taken 09/16/22] warfarin 5 mg tablet 5 mg PO DAILY BLOOD THINNER 09/14/21 [History Last Taken 09/16/22] acidophilus 25 million cell-pectin, citrus 100 mg tablet 1 tab PO 4X/DAY #0 tabs 09/21/21 [Rx Last Taken 09/16/22] ibuprofen 200 mg tablet 400 mg PO Q4H PRN FEAVER 09/18/22 [History Last Taken 09/16/22] nystatin 100,000 unit/gram topical cream 100,000 unit topical DAILY RASH 1 11/18/21 [History Last Taken 09/16/22] triamcinolone acetonide 0.1 % lotion 1 applic topical TID RASH 09/18/22 [History Last Taken 09/16/22] Allergy/AdvReac Type Severity Reaction Status Date / Time No Known Allergies Allergy Verified 09/18/22 15:50 Family History Father Heart disease Father Diabetes Heart disease Surgical History Status post adenoidectomy Social History Smoking Status: Former smoker Tobacco: How many years used: 5 how long ago did patient quit smokin years ago alcohol intake: current alcohol intake frequency: holidays/special occasions only substance use type: does not use Physical Exam Const alert and oriented x3 Constitutional Narrative: Patient appears much older than stated age, he has poor hygiene General Appearance: cooperative and well developed Orientation / Consciousness: awake, oriented to person and oriented to place HEENT normocephalic, head/scalp atraumatic, hearing grossly normal bilaterally and moist oral mucous membranes Eyes PERRL, EOMs intact bilaterally and conjunctivae normal Neck supple, no JVD, thyroid normal and no carotid bruits General: trachea midline Resp normal respiratory effort, no retractions, no use of accessory muscles and clear to auscultation bilaterally Auscultation: Negative for rales, rhonchi or wheezes Cardio regular rate, regular rhythm, S1 normal heart sound, S2 normal heart sound, no murmurs, no rub and no gallops GI normal to inspection, nondistended, normoactive bowel sounds, soft to palpation, non-tender and non-distended GI Narrative: Patient is morbidly obese Extremity Extremity Narrative: Chronic lymphedematous changes are noted over the patient's lower extremity Skin Skin Narrative: There are multiple eschared areas over the skin of the chest, abdomen, and to a lesser extent the lower extremities. The eschars on the trunk and chest area have some that are black and several centimeters in diameter. There are no es chared areas on the patient's back. General Skin Exam: venous stasis Neuro oriented x3, CN's II-XII intact bilaterally, no focal motor deficits and no sensory deficits noted Sensorium / Orientation: awake, alert, oriented to person and oriented to place Speech: speech normal Psych affect normal Lab / Micro Data Attestation: I reviewed the patient's lab results. Result Diagrams: 09/19/22 03:45 09/19/22 03:45 Labs: Laboratory Results - last 24 hr 09/18/22 16:30: WBC 8.8, RBC 2.95 L, Hgb 8.9 L, Hct 27.5 L, MCV 93.2, MCH 30.2, MCHC 32.4, RDW Std Deviation 50.4 H, RDW Coeff of Adiel 15.0 H, Plt Count 161, MPV 10.2, Immature Gran % (Auto) 0.300, Neut % (Auto) 95.0 H, Lymph % (Auto) 1.6 L, [place] % (Auto) 2.5, Eos % (Auto) 0.5, Baso % (Auto) 0.1, Absolute Neuts (auto) 8.4 H, Absolute Lymphs (auto) 0.14 L, Nucleated RBC % 0, Differential Comment SCANNED 09/18/22 16:30: PT 38.7 H, INR 4.0 H*, APTT 83.9 H 09/18/22 16:30: Sodium 139, Potassium 4.3, Chloride 112 H, Carbon Dioxide 18.0 L , Anion Gap 9, BUN 52 H, Creatinine 2.52 H, Estim Creat Clear Calc 26.94, Est GFR (MDRD) Af Amer 32 L, Est GFR (MDRD) Non-Af 27 L, BUN/Creatinine Ratio 20.6 H , Glucose 149 H, Calcium 8.8, Total Bilirubin 1.00, AST 39 H, ALT 34, Alkaline Phosphatase 181 H, Total Protein 7.4, Albumin 2.8 L, Globulin 4.6 H, Albumin/Globulin Ratio 0.6 L 09/18/22 16:30: Lactic Acid 1.7 09/18/22 17:37: Urine Color Yellow, Urine Clarity Clear, Urine pH 5.0, Ur Specific [place] 1.020, Urine Protein 30 H, Urine Glucose (UA) Normal, Urine Ketones Negative, Urine Occult Blood 250 H, Urine Nitrite Negative, Urine Bilirubin Negative, Urine Urobilinogen 1 H, Ur Leukocyte Esterase 25 H, Urine RBC 10-25 SEEN, Urine WBC 0-5 SEEN, Ur Squamous Epith Cells 0 SEEN, Urine Bacteria 1+, Urine Mucus 0 SEEN 09/19/22 03:45: WBC 18.7 H, RBC 2.69 L, Hgb 8.3 L, Hct 25.4 L, MCV 94.4 H, MCH 30.9, MCHC 32.7, RDW Std Deviation 52.1 H, RDW Coeff of Adiel 15.1 H, Plt Count 181, MPV 9.9, Immature Gran % (Auto) 0.500, Neut % (Auto) 92.8 H, Lymph % (Auto) 2.1 L, [place] % (Auto) 4.3, Eos % (Auto) 0.1, Baso % (Auto) 0.2, Absolute Neuts (auto) 17.3 H, Absolute Lymphs (auto) 0.40 L, Nucleated RBC % 0, Differential Comment SCANNED 09/19/22 03:45: PT 44.5 H, INR 4.8 H* 09/19/22 03:45: Sodium 140, Potassium 4.3, Chloride 114 H, Carbon Dioxide 17.0 L , Anion Gap 9, BUN 52 H, Creatinine 2.60 H, Estim Creat Clear Calc 26.12, Est GFR (MDRD) Af Amer 31 L, Est GFR (MDRD) Non-Af 26 L, BUN/Creatinine Ratio 20.0, Glucose 150 H, Calcium 7.9 L Micro: Microbiology 09/18/22 17:25 Blood Culture (Wb) - Anticubital Left Blood Culture - Preliminary 09/18/22 16:30 Blood Culture (Wb) - Anticubital Right Blood Culture - Preliminary 09/18/22 16:19 Nasal Secretion SARS-CoV-2 & FLU Antigen (Rapid) - Final Radiology Impression Chest X-Ray 09/18/22 16:09 IMPRESSION: Degenerative changes, as described above. No demonstrated acute cardiopulmonary process. There is no interval change. Electronically Signed: Manuel Davila DO at 17:07 EST Reading Location ID and State: [employer] / [place] Tel [phone], Service support , Chest X-Ray 09/18/22 21:20 IMPRESSION: Right jugular central venous catheter without pneumothorax or other major interval change. Electronically Signed: Manuel Davila DO at 21:35 EST Reading Location ID and State: [employer] / [place] Tel [phone], Service support , Charges/Coding Visit Charges Inpatient E&M: 46246 Init Hosp L3
[2022-09-19] MEDS: Menthol/Lanolin/Calamine/Znox 113 GM Tube 1 APPLIC TOPICAL ×2 (08:19→22:27)
[2022-09-19] MEDS: Allopurinol 100 MG Tablet PO (08:19)
[2022-09-19] MEDS: Nystatin Ointment 1 APPLIC TOPICAL (10:11)
[2022-09-19] MEDS: Acetaminophen 325 MG Tablet 650 MG PO ×2 (10:11→23:18)
--- NOTE | 2022-09-19 11:31 | PCM.PN.HOSP ---
Subjective Subjective Follow-up on septic shock/debility: Patient was seen and examined. He has been off pressors. Transferred from the ICU to PCU. Denied any dizziness or palpitation. Objective Data Objective Data Vital Signs: Vital Signs Temp Pulse Resp BP Pulse Ox O2 Del Method 100.0 F H 96 33 H 138/83 H 94 Room Air 09/19/22 08:00 09/19/22 09:00 09/19/22 09:00 09/19/22 09:00 09/19/22 09:00 09/19/22 09:00 Oxygen Delivery Method Room Air Weight: 160.6 kg Body Mass Index (BMI) 46.6 Intake & Output: Intake and Output for Last 24 Hours 09/17/22 09/18/22 09/19/22 23:59 23:59 23:59 Intake Total 3685.69 / 3692.72 995.62 / 995.62 Output Total 410 / 410 Balance 3685.69 / 3517.72 585.62 / 585.62 Lab / Micro Data Result Diagrams: 09/19/22 03:45 09/19/22 03:45 Labs: Laboratory Results - last 24 hr 09/18/22 16:30: WBC 8.8, RBC 2.95 L, Hgb 8.9 L, Hct 27.5 L, MCV 93.2, MCH 30.2, MCHC 32.4, RDW Std Deviation 50.4 H, RDW Coeff of Adiel 15.0 H, Plt Count 161, MPV 10.2, Immature Gran % (Auto) 0.300, Neut % (Auto) 95.0 H, Lymph % (Auto) 1.6 L, [place] % (Auto) 2.5, Eos % (Auto) 0.5, Baso % (Auto) 0.1, Absolute Neuts (auto) 8.4 H, Absolute Lymphs (auto) 0.14 L, Nucleated RBC % 0, Differential Comment SCANNED 09/18/22 16:30: PT 38.7 H, INR 4.0 H*, APTT 83.9 H 09/18/22 16:30: Sodium 139, Potassium 4.3, Chloride 112 H, Carbon Dioxide 18.0 L, Anion Gap 9, BUN 52 H, Creatinine 2.52 H, Estim Creat Clear Calc 26.94, Est GFR (MDRD) Af Amer 32 L, Est GFR (MDRD) Non-Af 27 L, BUN/Creatinine Ratio 20.6 H, Glucose 149 H, Calcium 8.8, Total Bilirubin 1.00, AST 39 H, ALT 34, Alkaline Phosphatase 181 H, Total Protein 7.4, Albumin 2.8 L, Globulin 4.6 H, Albumin/Globulin Ratio 0.6 L 09/18/22 16:30: Lactic Acid 1.7 09/18/22 17:37: Urine Color Yellow, Urine Clarity Clear, Urine pH 5.0, Ur Specific [place] 1.020, Urine Protein 30 H, Urine Glucose (UA) Normal, Urine Ketones Negative, Urine Occult Blood 250 H, Urine Nitrite Negative, Urine Bilirubin Negative, Urine Urobilinogen 1 H, Ur Leukocyte Esterase 25 H, Urine RBC 10-25 SEEN, Urine WBC 0-5 SEEN, Ur Squamous Epith Cells 0 SEEN, Urine Bacteria 1+, Urine Mucus 0 SEEN 09/19/22 03:45: WBC 18.7 H, RBC 2.69 L, Hgb 8.3 L, Hct 25.4 L, MCV 94.4 H, MCH 30.9, MCHC 32.7, RDW Std Deviation 52.1 H, RDW Coeff of Adiel 15.1 H, Plt Count 181, MPV 9.9, Immature Gran % (Auto) 0.500, Neut % (Auto) 92.8 H, Lymph % (Auto) 2.1 L, [place] % (Auto) 4.3, Eos % (Auto) 0.1, Baso % (Auto) 0.2, Absolute Neuts (auto) 17.3 H, Absolute Lymphs (auto) 0.40 L, Nucleated RBC % 0, Differential Comment SCANNED 09/19/22 03:45: PT 44.5 H, INR 4.8 H* 09/19/22 03:45: Sodium 140, Potassium 4.3, Chloride 114 H, Carbon Dioxide 17.0 L, Anion Gap 9, BUN 52 H, Creatinine 2.60 H, Estim Creat Clear Calc 26.12, Est GFR (MDRD) Af Amer 31 L, Est GFR (MDRD) Non-Af 26 L, BUN/Creatinine Ratio 20.0, Glucose 150 H, Calcium 7.9 L Micro: Microbiology 09/19/22 08:15 Interface Orders C. difficile DNA Amplification - Final 09/18/22 16:30 Blood Culture (Wb) - Anticubital Right Blood Culture - Preliminary 09/18/22 17:37 Urine, Catheterized Urine Culture - Preliminary Culture exhibits no growth. 09/18/22 17:25 Blood Culture (Wb) - Anticubital Left Blood Culture - Preliminary 09/18/22 16:19 Nasal Secretion SARS-CoV-2 & FLU Antigen (Rapid) - Final Radiography Diagnostic Testing: Radiology Impression Chest X-Ray 09/18/22 16:09 IMPRESSION: Degenerative changes, as described above. No demonstrated acute cardiopulmonary process. There is no interval change. Electronically Signed: Manuel Davila DO at 17:07 EST Reading Location ID and State: [place] Tel [phone], Service support , Chest X-Ray 09/18/22 21:20 IMPRESSION: Right jugular central venous catheter without pneumothorax or other major interval change. Electronically Signed: Manuel Davila DO at 21:35 EST Reading [facility] [phone], Service support , Physical Exam Narrative Physical exam: General: Alert, Oriented x3, Cooperative, morbidly obese HEENT: Atraumatic Oral: Moist Mucosa Neck: Supple Lungs: Diminished to auscultation Cardiovascular: HS I+II, regular, no murmurs Abdomen: Bowel Sounds Present, Soft, Non Tender Extremities: Bilateral leg edema +2 chronic venous stasis dermatitis and cellulitis Skin: Ulcers in stages of healing over the upper extremities Neurological: Grossly intact Psych/Mental Status: Appropriate Assessment & Plan Assessment/Plan (1) Septic shock: (2) Cellulitis: PLAN: Plan 1. Septic shock secondary to widespread cellulitis/gram-negative bacteremia, improved Off pressors, blood pressures remain soft Continue on IV vancomycin and Zosyn Continue to trend cultures Wound RN following 2. Paroxysmal atrial flutter, in normal sinus rhythm, 3. Supratherapeutic INR, history of multiple PEs Would hold Coumadin, repeat INR 4. Morbid obesity/chronic lymphedema/RAAD, continue CPAP Lifestyle modification recommended 5. DVT PPx-INR supratherapeutic Charges/Coding Visit Charges Inpatient E&M: 03456 Subs Hosp L3
--- NOTE | 2022-09-19 15:07 | CASEMGMT ---
Discharge Manufacturing Cost Estimator This mortgage or loan underwriter went to patient bedside for a [id number] with patient and family. This mortgage or loan underwriter introduced self and role at [facility]. Family is interested in a SNF. This mortgage or loan underwriter left a?list of?[facility] facility providers including quality and resource use data and consistent with patient?s preferred geographic region, medical needs, and insurance network were provided from the [facility] Guide. Patient family and patient picked 1.[facility] 2. [place]. This mortgage or loan underwriter sent referral to [facility] via [facility] [employer]. JACKSON Steele notified. Ashtyn LENTZ Safety And Health Consultant
--- NOTE | 2022-09-19 15:19 | WOUNDNOTE ---
wound photo: right upper chest
--- NOTE | 2022-09-19 15:20 | WOUNDNOTE ---
wound photo: left upper chest
--- NOTE | 2022-09-19 15:20 | WOUNDNOTE ---
wound photo: left lateral upper arm
--- NOTE | 2022-09-19 15:21 | WOUNDNOTE ---
wound photo: right breast fold
--- NOTE | 2022-09-19 15:21 | WOUNDNOTE ---
wound photo: left breast fold
--- NOTE | 2022-09-19 15:39 | CASEMGMT ---
Discharge International Nurse [facility] reached out. [facility] been accepted to [facility] pending insurance. Will follow up tomorrow and send PT/OT notes when available. Ashtyn LENTZ Gis Database Administrator
[2022-09-19] MEDS: Juven (unflavored) Packet 1 PACKET PO (17:25)
[2022-09-19] MEDS: 0.9% Saline Lock 10 ML Syringe IV (18:59)
[2022-09-19 19:09] LABS: M R Staph aureus DNA By PCR Negative (Negative); Probe Check PASS; Staph aureus DNA By PCR POSITIVE (Negative)
[2022-09-20] VITALS (33 sets, daily range): BP systolic 89–140; BP diastolic 52–90; PULSE 80–144; RESP 17–30; TEMP 36.5–37.7; O2SAT 95–100
[2022-09-20] MEDS: 0.9% Normal Saline 1,000 ML 125 ML IV (05:39)
[2022-09-20 05:43] LABS: Absolute Lymphocyte Count 0.54 X10^3/uL (0.83-4.51); Absolute Neutrophil Count 6.2 X10^3/uL (2.0-7.7); Basophil# 0.02 X10^3/uL; Basophil% 0.3 % (0-1); Eosinophil# 0.09 X10^3/uL; Eosinophils% 1.2 % (0-5); Hematocrit 20.8 % (40-54); Hemoglobin 6.9 g/dL (13.0-16.5); Lymphocyte # 0.54 X10^3/ul (0.83-4.51); Lymphocyte % 7.2 % (19-41); Mean Corp Hgb Conc 33.2 g/dL (32-36); Mean Corpuscular Hgb 30.8 pg (27.0-32.0); Mean Corpuscular Volume 92.9 fL (80-94); Mean Platelet Vol. 10.3 fl (6.2-12.0); Monocyte# 0.54 X10^3/uL; Monocyte% 7.2 % (0-10); NRBC Flagged by Analyzer 0 % (0-5); Neutrophil # 6.24 X10^3/uL (2.7-7.7); Neutrophil % 83.7 % (47-70); POSITIVE DIFFERENTIAL YES; Platelet Count 136 K/mm3 (150-450); RBC Distribution Width CV 15.2 % (11.6-14.6); RBC Distribution Width SD 52.6 fl (35.1-43.9); Red Blood Count 2.24 M/mm3 (4.6-6.2); White Blood Count 7.5 K/mm3 (4.4-11.0)
[2022-09-20 05:49] LABS: Differential Indicated SCAN CRITERIA MET
[2022-09-20 05:55] LABS: Prothrombin Time (Protime)PT. 49.7 SECONDS (11.7-14.9)
[2022-09-20 05:59] LABS: International Normalized Ratio 5.5
[2022-09-20 06:04] LABS: Differential Comment SCANNED
[2022-09-20 06:34] LABS: ALB/GLOB Ratio 0.5 RATIO (0.9-2.4); AST(SGOT) 106 U/L (15-37); Alanine Aminotransfer ALT/SGPT 38 U/L (16-61); Albumin, Serum 1.9 g/dL (3.2-5.0); Alkaline Phosphatase 107 U/L (45-117); Anion Gap 8 (5-15); BUN 53 mg/dL (7-18); BUN/Creat Ratio 22.7 RATIO (10-20); Calcium,Total 7.7 mg/dL (8.5-10.1); Chloride 114 mmol/L (98-107); Creatinine, Serum 2.33 mg/dL (0.70-1.30); EST Glomerular Filtration Rate 29 mL/min (>60); Est Glom Filt Rate - Afr Amer 35 mL/min (>60); Estimated Creatinine Clearance 29.14 ml/min; Globulin 3.8 g/dL (2.2-4.2); Glucose 100 mg/dL (74-106); Protein, Total 5.7 g/dL (6.4-8.2); Sodium Level 140 mmol/L (136-145)
[2022-09-20 07:03] LABS: Magnesium 1.9 mg/dL (1.6-2.6)
[2022-09-20] MEDS: Juven (unflavored) Packet 1 PACKET PO ×2 (08:16→17:30)
[2022-09-20] MEDS: Phytonadione (Vit K1) 5 MG TABLET PO (08:16)
[2022-09-20] MEDS: Allopurinol 100 MG Tablet PO (08:16)
[2022-09-20] MEDS: 0.9% Saline Lock 10 ML Syringe IV ×5 (08:19→14:32)
--- NOTE | 2022-09-20 09:25 | ECHOD_ITS ---
Reason For Study: DYSPNEA Procedure This was a 2D Doppler, Color Flow transthoracic echocardiogram. Technically difficult study. Exam was unable to be finished at request of the patient due to pain from open wounds. Exam performed portable in patient room. Left Ventricle Normal LV size. Mild concentric left ventricular hypertrophy. Left ventricular systolic function is normal. The estimated ejection fraction is 55 %. No regional wall motion abnormalities noted. Right Ventricle Normal RV size. Normal systolic function. Tricuspid Valve Normal tricuspid valve. Mild tricuspid valve insufficiency. Pulmonary artery systolic pressure is 34 mmHg. Pulmonic Valve The pulmonic valve is not well visualized. Great Vessels Normal aortic root. Pericardium/Pleural No pericardial effusion. MMode/2D Measurements & Calculations LVIDd: 5.4 cm IVSd: 1.3 cm Ao root diam: 3.4 cm LVIDs: 4.1 cm LVPWd: 1.5 cm FS: 24.8 % LA dimension(2D): 5.0 cm Doppler Measurements & Calculations MV E max angel: 116.3 cm/sec Ao V2 max: 118.9 cm/sec PA V2 max: 103.3 cm/sec Ao max P.8 mmHg PA V2 mean: 71.3 cm/sec Ao V2 mean: 78.2 cm/sec Ao mean P.8 mmHg Ao V2 VTI: 18.1 cm TR max angel: 272.8 cm/sec TR max P.8 mmHg ECHO/Echo Complete Interpretation Summary Normal LV size. Left ventricular systolic function is normal. The estimated ejection fraction is 55 %. Mild concentric left ventricular hypertrophy. Contrast injection was performed. Ordering Physician: Valentine Patterson Performed By: Ann Marie Nicholas RCS
[2022-09-20] MEDS: Furosemide 40 MG/4 ML Vial IV ×3 (09:34→21:36)
--- NOTE | 2022-09-20 09:59 | CASEMGMT ---
Discharge Strip Cleaner PT/OT notes and wound notes sent to [facility] via [facility]. Pre-cert is being started. Ashtyn LENTZ Marble Machine Operator
[2022-09-20] MEDS: Nystatin Ointment 1 APPLIC TOPICAL (10:25)
[2022-09-20] MEDS: Menthol/Lanolin/Calamine/Znox 113 GM Tube 1 APPLIC TOPICAL ×2 (10:26→21:36)
--- NOTE | 2022-09-20 10:28 | PN.CC_ITS ---
Assessment & Plan Assessment/Plan (1) Atrial flutter: (2) Sepsis: PLAN: Plan RECOMMENDATIONS: 1. Continue broad-spectrum antibiotics pending cultures 2. Consider ID evaluation 3. Wound care to evaluate skin lesions 4. Possible outpatient evaluation by vascular surgery 5. Hemodynamically stable on room air. Will sign off from a critical care perspective IMPRESSIONS: 1. Gram-negative septic shock secondary to probable cellulitis Patient with multiple open wounds throughout trunk and legs. Clinical suspicion for E. coli as an etiology. Patient does have gram-negative growing in his blood cultures at this time. Patient has been taken off of Levophed. Patient has had MSSA noted in skin wounds, but blood cultures are showing only gram-negative's. Consider ID consult for recommendations. Will wean antibiotic spectrum once sensitivities are available. Patient appears to be doing much better at this time off of pressor therapy. Patient will need wound care to evaluate skin wounds. Healing is complicated by history of vasculopath. 2. Paroxysmal a flutter with RVR Patient with 2 and 1 block on presentation. Patient appears to be in sinus rhythm at this time. Patient is fully anticoagulated. We will address electrolytes as necessary. Defer to hospitalist on whether cardiology needs to be involved. 3. Supratherapeutic INR Clinical suspicion for retention of warfarin secondary to problem #1. Patient not actively bleeding right now, so daily checks of INR with holding of Coumadin would be appropriate. INR will be prolonged given need for antibiotics 4. Morbid obesity/chronic lymphedema/history of uncontrolled RAAD/self- neglect/history of PEs Complicates care, management, recovery and prognosis. Wound care to evaluate wounds skin defects. Patient likely would benefit from a social work evaluation. Patient may require rehab/SNF given decline. Subjective Subjective Patient transferred out of the intensive care unit yesterday. No fluid boluses or pressors were required overnight. Patient subjectively feels slightly improved compared to yesterday, but is still having significant pain from skin wounds. Objective Data Objective Data Vital Signs: Vital Signs Temp Pulse Resp BP Pulse Ox O2 Del Method 36.5 C L 92 20 H 105/59 L 97 Room Air 09/20/22 10:16 09/20/22 10:16 09/20/22 10:16 09/20/22 10:16 09/20/22 10:16 09/20/22 10:16 Oxygen Delivery Method Room Air Weight: 160 kg Body Mass Index (BMI) 46.6 Intake & Output: Intake and Output for Last 24 Hours 09/18/22 09/19/22 09/20/22 23:59 23:59 23:59 Intake Total 3685.69 / 3692.72 4056.45 / 4056.45 1691.59 / 1691.59 Output Total 1260 / 1660 1150 / 1150 Balance 3685.69 / 3517.72 2796.45 / 2396.45 541.59 / 541.59 Lab / Micro Data Attestation: I reviewed the patient's lab results. Result Diagrams: 09/20/22 04:55 09/20/22 04:55 Labs: Laboratory Results - last 24 hr 09/19/22 14:40: S.aureus Protein A PCR POSITIVE H, MRSA (PCR) Negative 09/20/22 04:55: WBC 7.5, RBC 2.24 L, Hgb 6.9 L, Hct 20.8 L, MCV 92.9, MCH 30.8, MCHC 33.2, RDW Std Deviation 52.6 H, RDW Coeff of Adiel 15.2 H, Plt Count 136 L, MPV 10.3, Immature Gran % (Auto) 0.400, Neut % (Auto) 83.7 H, Lymph % (Auto) 7.2 L, [place] % (Auto) 7.2, Eos % (Auto) 1.2, Baso % (Auto) 0.3, Absolute Neuts (auto) 6.2, Absolute Lymphs (auto) 0.54 L, Nucleated RBC % 0, Differential Comment SCANNED 09/20/22 04:55: PT 49.7 H, INR 5.5 H* 09/20/22 04:55: Sodium 140, Potassium 4.0, Chloride 114 H, Carbon Dioxide 18.0 L , Anion Gap 8, BUN 53 H, Creatinine 2.33 H, Estim Creat Clear Calc 29.14, Est GFR (MDRD) Af Amer 35 L, Est GFR (MDRD) Non-Af 29 L, BUN/Creatinine Ratio 22.7 H , Glucose 100, Calcium 7.7 L, Total Bilirubin 0.50, AST 106 H, ALT 38, Alkaline Phosphatase 107, Total Protein 5.7 L, Albumin 1.9 L, Globulin 3.8, Albumin/Globulin Ratio 0.5 L 09/20/22 04:55: Magnesium 1.9 09/20/22 07:00: Blood Type A POSITIVE, Antibody Screen NEGATIVE, Crossmatch See Detail Micro: Microbiology 09/19/22 14:40 Wound - Chest Gram Stain - Final 09/18/22 16:30 Blood Culture (Wb) - Anticubital Right Blood Culture - Preliminary 09/19/22 08:15 Stool Enteric Bacteriology - Final 09/19/22 08:15 Interface Orders C. difficile DNA Amplification - Final 09/18/22 17:37 Urine, Catheterized Urine Culture - Preliminary Culture exhibits no growth. 09/18/22 17:25 Blood Culture (Wb) - Anticubital Left Blood Culture - Pre liminary 09/18/22 16:19 Nasal Secretion SARS-CoV-2 & FLU Antigen (Rapid) - Final Physical Exam Const alert and oriented x3 Constitutional Narrative: Patient appears much older than stated age, he has poor hygiene General Appearance: cooperative and well developed; Negative for lethargic Orientation / Consciousness: awake HEENT normocephalic, head/scalp atraumatic, hearing grossly normal bilaterally and mo ist oral mucous membranes Eyes PERRL, EOMs intact bilaterally and conjunctivae normal Neck supple, no JVD, thyroid normal and no carotid bruits General: trachea midline Resp normal respiratory effort, no retractions, no use of accessory muscles and clear to auscultation bilaterally Auscultation: Negative for rales, rhonchi or wheezes Cardio regular rate, regular rhythm, S1 normal heart sound, S2 normal heart sound, no murmurs, no rub and no gallops GI normal to inspection, nondistended, normoactive bowel sounds, soft to palpation, non-tender and non-distended GI Narrative: Patient is morbidly obese Extremity Extremity Narrative: Chronic lymphedematous changes are noted over the patient's lower extremity Skin Skin Narrative: There are multiple eschared areas over the skin of the chest, abdomen, and to a lesser extent the lower extremities. The eschars on the trunk and chest area have some that are black and several centimeters in diameter. There are no eschared areas on the patient's back. General Skin Exam: venous stasis Neuro oriented x3, CN's II-XII intact bilaterally, no focal motor deficits and no sensory deficits noted Sensorium / Orientation: awake, alert, oriented to person and oriented to place Speech: speech normal Psych affect normal Charges/Coding Visit Charges Inpatient E&M: 52426 Subs Hosp L2
--- NOTE | 2022-09-20 11:24 | EKG12_ITS ---
Test Reason : Blood Pressure : / mmHG Vent. Rate : 110 BPM Atrial Rate : 000 BPM P-R Int : 000 ms QRS Dur : 078 ms QT Int : 364 ms P-R-T Axes : 000 019 080 degrees QTc Int : 492 ms Atrial fibrillation with rapid ventricular response Low voltage QRS Septal infarct , age undetermined Abnormal ECG No previous ECGs available Confirmed by JALEESA ELY, ANGEL ([id number]), editor producer JAAN SALAZAR ([id number]) on 09/25/2022 11:28:57 AM Referred By: MELY Confirmed By:ANGEL LAZCANO MD
[2022-09-20] MEDS: Amiodarone 360 MG in Dextrose 5% Viaflo Bag 192.8 ML 33.3 MG CONT INF (13:00)
--- NOTE | 2022-09-20 15:36 | PN.HOSP_ITS ---
Subjective Subjective Follow-up on septic shock/debility: Patient was seen and examined.? Overnight, patient was tachycardic, having lots of PVCs. Magnesium was 1.9; replaced. Repeat hemoglobin is 6.9; patient will be transfused 1 unit of packed RBC. Patient later on went into A. fib with RVR. Objective Data Objective Data Vital Signs: Vital Signs Temp Pulse Resp BP Pulse Ox O2 Del Method 98.2 F 105 H 26 H 89/54 L 98 Room Air 09/20/22 14:00 09/20/22 15:00 09/20/22 15:00 09/20/22 15:00 09/20/22 15:00 09/20/22 15:00 Oxygen Delivery Method Room Air Weight: 160 kg Body Mass Index (BMI) 46.6 Intake & Output: Intake and Output for Last 24 Hours 09/18/22 09/19/22 09/20/22 23:59 23:59 23:59 Intake Total 3685.69 / 3692.72 4056.45 / 4056.45 2761.20 / 2761.20 Output Total 1260 / 1660 1850 / 1850 Balance 3685.69 / 3517.72 2796.45 / 2396.45 911.20 / 911.20 Lab / Micro Data Result Diagrams: 09/20/22 04:55 09/20/22 04:55 Labs: Laboratory Results - last 24 hr 09/19/22 14:40: S.aureus Protein A PCR POSITIVE H, MRSA (PCR) Negative 09/20/22 04:55: WBC 7.5, RBC 2.24 L, Hgb 6.9 L, Hct 20.8 L, MCV 92.9, MCH 30.8, MCHC 33.2, RDW Std Deviation 52.6 H, RDW Coeff of Adiel 15.2 H, Plt Count 136 L, MPV 10.3, Immature Gran % (Auto) 0.400, Neut % (Auto) 83.7 H, Lymph % (Auto) 7.2 L, [place] % (Auto) 7.2, Eos % (Auto) 1.2, Baso % (Auto) 0.3, Absolute Neuts (auto) 6.2, Absolute Lymphs (auto) 0.54 L, Nucleated RBC % 0, Differential Comment SCANNED 09/20/22 04:55: PT 49.7 H, INR 5.5 H* 09/20/22 04:55: Sodium 140, Potassium 4.0, Chloride 114 H, Carbon Dioxide 18.0 L , Anion Gap 8, BUN 53 H, Creatinine 2.33 H, Estim Creat Clear Calc 29.14, Est GFR (MDRD) Af Amer 35 L, Est GFR (MDRD) Non-Af 29 L, BUN/Creatinine Ratio 22.7 H , Glucose 100, Calcium 7.7 L, Total Bilirubin 0.50, AST 106 H, ALT 38, Alkaline Phosphatase 107, Total Protein 5.7 L, Albumin 1.9 L, Globulin 3.8, Albumin/Globulin Ratio 0.5 L 09/20/22 04:55: Magnesium 1.9 09/20/22 07:00: Blood Type A POSITIVE, Antibody Screen NEGATIVE, Crossmatch See Detail Micro: Microbiology 09/18/22 17:25 Blood Culture (Wb) - Anticubital Left Blood Culture - Preliminary Gram negative faraz 09/18/22 16:30 Blood Culture (Wb) - Anticubital Right Blood Culture - Preliminary Gram negative faraz 09/19/22 14:40 Wound - Chest Gram Stain - Final 09/19/22 08:15 Stool Enteric Bacteriology - Final 09/19/22 08:15 Interface Orders C. difficile DNA Amplification - Final 09/18/22 17:37 Urine, Catheterized Urine Culture - Preliminary Culture exhibits no growth. 09/18/22 16:19 Nasal Secretion SARS-CoV-2 & FLU Antigen (Rapid) - Final Radiography Diagnostic Testing: Radiology Impression Echocardiogram 09/20/22 09:25 Interpretation Summary Normal LV size. Left ventricular systolic function is normal. The estimated ejection fraction is 55 %. Mild concentric left ventricular hypertrophy. Contrast injection was performed. Ordering Physician: Valentine Patterson Performed By: Ann Marie Nicholas RCS Physical Exam Narrative Physical exam: General: Alert, Oriented x3, Cooperative, morbidly obese HEENT: Atraumatic Oral: Moist Mucosa Neck: Supple Lungs: Diminished to auscultation Cardiovascular: HS I+II, regular, no murmurs Abdomen: Bowel Sounds Present, Soft, Non Tender Extremities: Bilateral leg edema +2 chronic venous stasis dermatitis and cellulitis Skin: Ulcers in stages of healing over the upper extremities Neurological: Grossly intact Psych/Mental Status: Appropriate Assessment & Plan Assessment/Plan (1) Septic shock: (2) Cellulitis: PLAN: Plan 1. A. fib with RVR secondary to underlying sepsis Patient with a history of A.flutter- blood pressure has been relatively hypotensive Will give patient amiodarone bolus with drip, INR is 5.5 today Patient has been off Coumadin Continue to monitor on telemetry 2. Supratherapeutic INR, history of multiple PEs, INR is 5.5 Patient last night had episodes of bleeding from his lower extremities and skin of scrotum We will give IV vitamin K 5 mg p.o. x1 Repeat INR in a.m. 3. Severe acute anemia likely secondary to acute blood loss/hemodilution Patient denies any melena; had episode of blood loss from his lower extremities We will transfuse 1 unit of packed RBC Continue to monitor 4. Septic shock secondary to widespread cellulitis/gram-negative bacteremia, improved Off pressors, blood pressures remain soft Continue on IV vancomycin and Zosyn for now Continue to trend cultures Wound RN following 5. Morbid obesity/chronic lymphedema/RAAD, continue CPAP Lifestyle modification recommended 6. Acute on chronic worsening lymphedema/anasarca Albumin today is 1.9, 2D echo shows EF of 55% no diastolic dysfunction Will start on Lasix 40 mg every 8h, trend renal function 7. DVT PPx-INR supratherapeutic Charges/Coding Visit Charges Inpatient E&M: 35658 [facility] Hosp L3
[2022-09-20 16:43] LABS: Hematocrit 25.5 % (40-54); Hemoglobin 8.3 g/dL (13.0-16.5)
[2022-09-20] MEDS: Amiodarone 360 MG in Dextrose 5% Viaflo Bag 192.8 ML 16.7 MG CONT INF (19:01)
[2022-09-20] MEDS: Ipratropium 0.5 MG/2.5 ML SOLUTION INHALATION ×2 (19:11→23:16)
[2022-09-20 19:31] LABS: Vancomycin, Trough Level 14.4 ug/mL (5.0-15.0)
--- NOTE | 2022-09-20 20:49 | PCM.RX.CS ---
Consult Pharmacy has been consulted to manage selected antiobiotic: Vancomycin Type of Consult: Follow-up Suspected Infection: Skin/Soft tissue Prior Doses of Antibiotics Received/Current Regimen: 1500MG IV Q24H Labs: Sodium 140 mmol/L (136-145) 09/20/22 04:55 Potassium 4.0 mmol/L (3.5-5.1) 09/20/22 04:55 Chloride 114 mmol/L (98-107) H 09/20/22 04:55 Carbon Dioxide 18.0 mmol/L (21.0-32.0) L 09/20/22 04:55 Anion Gap 8 (5-15) 09/20/22 04:55 BUN 53 mg/dL (7-18) H 09/20/22 04:55 Creatinine 2.33 mg/dL (0.70-1.30) H 09/20/22 04:55 Est GFR (MDRD) Af Amer 35 mL/min (>60) L 09/20/22 04:55 Est GFR (MDRD) Non-Af 29 mL/min (>60) L 09/20/22 04:55 BUN/Creatinine Ratio 22.7 RATIO (10-20) H 09/20/22 04:55 Glucose 100 mg/dL (74-106) 09/20/22 04:55 Vancomycin Trough 14.4 ug/mL (5.0-15.0) 09/20/22 18:22 Microbiology: Microbiology 09/18/22 17:25 Blood Culture (Wb) - Anticubital Left Blood Culture - Preliminary Gram negative faraz 09/18/22 16:30 Blood Culture (Wb) - Anticubital Right Blood Culture - Preliminary Gram negative faraz 09/19/22 14:40 Wound - Chest Gram Stain - Final 09/19/22 08:15 Stool Enteric Bacteriology - Final 09/19/22 08:15 Interface Orders C. difficile DNA Amplification - Final 09/18/22 17:37 Urine, Catheterized Urine Culture - Preliminary Culture exhibits no growth. 09/18/22 16:19 Nasal Secretion SARS-CoV-2 & FLU Antigen (Rapid) - Final Weight used for dosin kg Estimated Creatinine Clearance: 42 ml/min Goal Trough: 15-20 mcg/mL Pharmacy Plan for Drug Dosing: Trough today was 14.4. Will increase dose to 1gm iv q12h per policy. Trough level ordered for 09.22.22 before 4th dose of new regimen. Pharmacy Service will continue to monitor and adjust dosing as required. Follow-Up Labs: Trough Vancomycin - 09.22. @0630 before 0700 dose
[2022-09-21] VITALS (21 sets, daily range): BP systolic 79–144; BP diastolic 46–86; PULSE 78–135; RESP 18–33; TEMP 36.4–37; O2SAT 94–98
[2022-09-21] MEDS: Acetaminophen 325 MG Tablet 650 MG PO (02:53)
[2022-09-21] MEDS: Ipratropium 0.5 MG/2.5 ML SOLUTION INHALATION (03:24)
[2022-09-21 05:10] LABS: Absolute Lymphocyte Count 0.63 X10^3/uL (0.83-4.51); Absolute Neutrophil Count 5.1 X10^3/uL (2.0-7.7); Basophil# 0.02 X10^3/uL; Basophil% 0.3 % (0-1); Eosinophils% 5.9 % (0-5); Hematocrit 23.7 % (40-54); Lymphocyte # 0.63 X10^3/ul (0.83-4.51); Lymphocyte % 9.3 % (19-41); Mean Corp Hgb Conc 33.8 g/dL (32-36); Mean Corpuscular Hgb 31.4 pg (27.0-32.0); Mean Corpuscular Volume 92.9 fL (80-94); Mean Platelet Vol. 9.6 fl (6.2-12.0); Monocyte# 0.49 X10^3/uL; Monocyte% 7.3 % (0-10); NRBC Flagged by Analyzer 0 % (0-5); Neutrophil # 5.13 X10^3/uL (2.7-7.7); Neutrophil % 76.2 % (47-70); Platelet Count 160 K/mm3 (150-450); RBC Distribution Width CV 14.8 % (11.6-14.6); RBC Distribution Width SD 50.4 fl (35.1-43.9); Red Blood Count 2.55 M/mm3 (4.6-6.2); White Blood Count 6.7 K/mm3 (4.4-11.0)
[2022-09-21 05:19] LABS: International Normalized Ratio 1.5; Prothrombin Time (Protime)PT. 18.2 SECONDS (11.7-14.9)
[2022-09-21 06:21] LABS: ALB/GLOB Ratio 0.5 RATIO (0.9-2.4); AST(SGOT) 92 U/L (15-37); Alanine Aminotransfer ALT/SGPT 42 U/L (16-61); Alkaline Phosphatase 121 U/L (45-117); Anion Gap 8 (5-15); BUN 59 mg/dL (7-18); BUN/Creat Ratio 25.4 RATIO (10-20); Calcium,Total 8.5 mg/dL (8.5-10.1); Chloride 111 mmol/L (98-107); Creatinine, Serum 2.32 mg/dL (0.70-1.30); EST Glomerular Filtration Rate 29 mL/min (>60); Est Glom Filt Rate - Afr Amer 35 mL/min (>60); Estimated Creatinine Clearance 29.27 ml/min; Globulin 4.3 g/dL (2.2-4.2); Glucose 108 mg/dL (74-106); Potassium 3.6 mmol/L (3.5-5.1); Protein, Total 6.3 g/dL (6.4-8.2); Sodium Level 139 mmol/L (136-145)
[2022-09-21] MEDS: Vancomycin IV 1,000 MG/200 ML BAG 200 MG IV ×2 (06:50→18:19)
[2022-09-21] MEDS: Furosemide 40 MG/4 ML Vial IV ×3 (06:55→21:17)
[2022-09-21] MEDS: Amiodarone 360 MG in Dextrose 5% Viaflo Bag 192.8 ML 16.7 MG CONT INF (07:54)
[2022-09-21] MEDS: Allopurinol 100 MG Tablet PO (07:55)
[2022-09-21] MEDS: Nystatin Ointment 1 APPLIC TOPICAL (07:55)
[2022-09-21] MEDS: Juven (unflavored) Packet 1 PACKET PO ×2 (07:55→18:19)
[2022-09-21] MEDS: Menthol/Lanolin/Calamine/Znox 113 GM Tube 1 APPLIC TOPICAL ×2 (07:55→21:18)
[2022-09-21] MEDS: Metoprolol Tartrate 25 MG Tablet PO ×2 (13:01→21:18)
--- NOTE | 2022-09-21 13:25 | PN.HOSP_ITS ---
Subjective Subjective Follow-up on septic shock/debility: Patient was seen and examined.?Patient remains in RVR, HR is better. Denies any fever or chills. Patient has been having bleeding from the nose and ulcers on the legs. Objective Data Objective Data Vital Signs: Vital Signs Temp Pulse Resp BP Pulse Ox O2 Del Method 98.6 F 103 H 25 H 124/60 H 94 Room Air 09/21/22 10:00 09/21/22 13:01 09/21/22 12:00 09/21/22 12:00 09/21/22 12:00 09/21/22 12:00 Oxygen Delivery Method Room Air Weight: 161.7 kg Body Mass Index (BMI) 46.6 Intake & Output: Intake and Output for Last 24 Hours 09/19/22 09/20/22 09/21/22 23:59 23:59 23:59 Intake Total 4056.45 / 4056.45 4341.11 / 4357.81 501.95 / 501.95 Output Total 1260 / 1660 4050 / 4350 500 / 500 Balance 2796.45 / 2396.45 291.11 / 7.81 1.95 / 1.95 Lab / Micro Data Result Diagrams: 09/21/22 04:55 09/21/22 04:55 Labs: Laboratory Results - last 24 hr 09/20/22 07:00: Crossmatch See Detail 09/20/22 16:28: Hgb 8.3 L, Hct 25.5 L 09/20/22 18:22: Vancomycin Trough 14.4 09/21/22 04:55: WBC 6.7, RBC 2.55 L, Hgb 8.0 L, Hct 23.7 L, MCV 92.9, MCH 31.4, MCHC 33.8, RDW Std Deviation 50.4 H, RDW Coeff of Adiel 14.8 H, Plt Count 160, MPV 9.6, Immature Gran % (Auto) 1.000 H, Neut % (Auto) 76.2 H, Lymph % (Auto) 9.3 L, [place] % (Auto) 7.3, Eos % (Auto) 5.9 H, Baso % (Auto) 0.3, Absolute Neuts (auto) 5.1, Absolute Lymphs (auto) 0.63 L, Nucleated RBC % 0 09/21/22 04:55: PT 18.2 H, INR 1.5 09/21/22 04:55: Sodium 139, Potassium 3.6, Chloride 111 H, Carbon Dioxide 20.0 L , Anion Gap 8, BUN 59 H, Creatinine 2.32 H, Estim Creat Clear Calc 29.27, Est GFR (MDRD) Af Amer 35 L, Est GFR (MDRD) Non-Af 29 L, BUN/Creatinine Ratio 25.4 H , Glucose 108 H, Calcium 8.5, Total Bilirubin 0.90, AST 92 H, ALT 42, Alkaline Phosphatase 121 H, Total Protein 6.3 L, Albumin 2.0 L, Globulin 4.3 H, Alb umin/Globulin Ratio 0.5 L Micro: Microbiology 09/19/22 14:40 Wound - Chest Gram Stain - Final 09/19/22 14:40 Wound - Chest Wound Culture - Preliminary Staphylococcus aureus 09/18/22 17:37 Urine, Catheterized Urine Culture - Final Culture exhibits no growth. 09/18/22 16:30 Blood Culture (Wb) - Anticubital Right Blood Culture - Final Pasteurella multocida 09/18/22 17:25 Blood Culture (Wb) - Anticubital Left Blood Culture - Final Pasteurella multocida 09/19/22 08:15 Stool Enteric Bacteriology - Final 09/19/22 08:15 Interface Orders C. difficile DNA Amplification - Final 09/18/22 16:19 Nasal Secretion SARS-CoV-2 & FLU Antigen (Rapid) - Final Physical Exam Narrative Physical exam: General: Alert, Oriented x3, Cooperative, morbidly obese HEENT: Atraumatic Oral: Moist Mucosa Neck: Supple Lungs: Diminished to auscultation Cardiovascular: HS I+II, regular, no murmurs Abdomen: Bowel Sounds Present, Soft, Non Tender Extremities: Bilateral leg edema +2 chronic venous stasis dermatitis and cellulitis Skin: Ulcers in stages of healing over the upper extremities Neurological: Grossly intact Psych/Mental Status: Appropriate Assessment & Plan Assessment/Plan (1) Septic shock: (2) Cellulitis: PLAN: Plan 1. A. fib with RVR secondary to underlying sepsis, persistent Patient with a history of A.flutter. Patient remains on amiodarone drip Will give metoprolol 25 mg BID, and wean off amiodarone drip 2. Supratherapeutic INR, history of multiple PEs, s/p vitamin K yesterday INR today is 1.5. Patient with frequent nose bleeds and wound bleeding 3. Severe acute anemia likely secondary to acute blood loss/hemodilution Status post 1 unit of packed RBC on 09/20/22 Hemoglobin today is 8.0, will continue to monitor 4. Septic shock secondary to widespread cellulitis/Pasteurella bacteremia, improved Off pressors, blood pressures remain soft Continue on IV vancomycin and cefazolin Continue to trend cultures Wound RN following 5. Morbid obesity/chronic lymphedema/RAAD, continue CPAP Lifestyle modification recommended 6. Acute on chronic worsening lymphedema/anasarca Albumin today is 1.9, 2D echo shows EF of 55% no diastolic dysfunction Will start on Lasix 40 mg every 8h, trend renal function 7. DVT PPx-cannot apply SCDs because of chronic lymphedema/bleeding wounds on the legs Cannot resume heparin or coumadin on account of bleeding wounds and epistaxis Will re-evaluate in am Charges/Coding Visit Charges Inpatient E&M: 59321 Subs Hosp L3
[2022-09-21] MEDS: Cefazolin 2 GM in 0.9% Normal Saline 100 ML IV ×2 (14:19→21:17)
[2022-09-21] MEDS: 0.9% Saline Lock 10 ML Syringe IV (21:19)
[2022-09-22] VITALS (13 sets, daily range): BP systolic 93–137; BP diastolic 54–72; PULSE 76–105; RESP 16–20; TEMP 36.5–37; O2SAT 95–98
[2022-09-22] MEDS: Cefazolin 2 GM in 0.9% Normal Saline 100 ML IV ×3 (05:30→21:19)
[2022-09-22] MEDS: Furosemide 40 MG/4 ML Vial IV (05:30)
[2022-09-22] MEDS: 0.9% Saline Lock 10 ML Syringe IV (05:30)
[2022-09-22 06:35] LABS: Absolute Lymphocyte Count 0.76 X10^3/uL (0.83-4.51); Absolute Neutrophil Count 4.9 X10^3/uL (2.0-7.7); Basophil# 0.04 X10^3/uL; Basophil% 0.6 % (0-1); Eosinophil# 0.59 X10^3/uL; Eosinophils% 8.7 % (0-5); Hematocrit 27.3 % (40-54); Hemoglobin 8.7 g/dL (13.0-16.5); Lymphocyte # 0.76 X10^3/ul (0.83-4.51); Lymphocyte % 11.2 % (19-41); Mean Corp Hgb Conc 31.9 g/dL (32-36); Mean Corpuscular Volume 94.1 fL (80-94); Mean Platelet Vol. 9.8 fl (6.2-12.0); Monocyte% 5.9 % (0-10); NRBC Flagged by Analyzer 0 % (0-5); Neutrophil # 4.87 X10^3/uL (2.7-7.7); Neutrophil % 71.5 % (47-70); Platelet Count 255 K/mm3 (150-450); RBC Distribution Width CV 14.8 % (11.6-14.6); RBC Distribution Width SD 51.1 fl (35.1-43.9); White Blood Count 6.8 K/mm3 (4.4-11.0)
[2022-09-22 06:57] LABS: International Normalized Ratio 1.3; Prothrombin Time (Protime)PT. 15.6 SECONDS (11.7-14.9)
[2022-09-22 07:05] LABS: Vancomycin, Trough Level 26.6 ug/mL (5.0-15.0)
[2022-09-22 07:08] LABS: ALB/GLOB Ratio 0.4 RATIO (0.9-2.4); AST(SGOT) 70 U/L (15-37); Alanine Aminotransfer ALT/SGPT 37 U/L (16-61); Albumin, Serum 2.2 g/dL (3.2-5.0); Alkaline Phosphatase 158 U/L (45-117); Anion Gap 8 (5-15); BUN 60 mg/dL (7-18); BUN/Creat Ratio 21.8 RATIO (10-20); Chloride 110 mmol/L (98-107); Creatinine, Serum 2.75 mg/dL (0.70-1.30); EST Glomerular Filtration Rate 24 mL/min (>60); Est Glom Filt Rate - Afr Amer 29 mL/min (>60); Estimated Creatinine Clearance 24.69 ml/min; Globulin 5.1 g/dL (2.2-4.2); Glucose 107 mg/dL (74-106); Potassium 3.6 mmol/L (3.5-5.1); Protein, Total 7.3 g/dL (6.4-8.2); Sodium Level 139 mmol/L (136-145)
[2022-09-22] MEDS: Allopurinol 100 MG Tablet PO (09:30)
[2022-09-22] MEDS: Juven (unflavored) Packet 1 PACKET PO ×2 (09:30→17:27)
[2022-09-22] MEDS: Nystatin Ointment 1 APPLIC TOPICAL (11:14)
[2022-09-22] MEDS: Menthol/Lanolin/Calamine/Znox 113 GM Tube 1 APPLIC TOPICAL (11:14)
--- NOTE | 2022-09-22 11:36 | CASEMGMT ---
RN CM NOTE: Yari GARCIA, informed this RN CM that pt/family are now wishing to change what SNF pt discharges to. VM left w/Mercedes, lead SW, re: same. Jay HAWTHORNEN RN CM
[2022-09-22] MEDS: Metoprolol Tartrate 25 MG Tablet 12.5 MG PO ×2 (12:54→21:26)
[2022-09-22] MEDS: Enoxaparin 80 MG/0.8 ML Syringe 160 MG SC (13:58)
[2022-09-22] MEDS: Midodrine HCl 5 MG Tablet 10 MG PO (15:08)
--- NOTE | 2022-09-22 15:46 | PCM.PN.HOSP ---
Subjective Subjective Follow-up on septic shock/debility: Patient was seen and examined.?Patient remains in RVR, blood patient is relatively low. No more epistaxis or bleeding from his wounds. INR today is 1.3. Objective Data Objective Data Vital Signs: Vital Signs Temp Pulse Resp BP Pulse Ox O2 Del Method 98.6 F 92 20 H 93/54 L 96 Room Air 09/22/22 09:15 09/22/22 12:54 09/22/22 11:20 09/22/22 12:54 09/22/22 11:20 09/22/22 11:20 Oxygen Delivery Method Room Air Weight: 162.6 kg Body Mass Index (BMI) 46.6 Intake & Output: Intake and Output for Last 24 Hours 09/20/22 09/21/22 09/22/22 23:59 23:59 23:59 Intake Total 4341.11 / 4357.81 982.53 / 982.53 510 / 510 Output Total 4050 / 4350 3600 / 3600 1200 / 1200 Balance 291.11 / 7.81 -2617.47 / -2617.47 -690 / -690 Lab / Micro Data Result Diagrams: 09/22/22 06:25 09/22/22 06:25 Labs: Laboratory Results - last 24 hr 09/22/22 06:25: PT 15.6 H, INR 1.3 09/22/22 06:25: Vancomycin Trough 26.6 H 09/22/22 06:25: WBC 6.8, RBC 2.90 L, Hgb 8.7 L, Hct 27.3 L, MCV 94.1 H, MCH 30.0, MCHC 31.9 L D, RDW Std Deviation 51.1 H, RDW Coeff of Adiel 14.8 H, Plt Count 255, MPV 9.8, Immature Gran % (Auto) 2.100 H, Neut % (Auto) 71.5 H, Lymph % (Auto) 11.2 L, [place] % (Auto) 5.9, Eos % (Auto) 8.7 H, Baso % (Auto) 0.6, Absolute Neuts (auto) 4.9, Absolute Lymphs (auto) 0.76 L, Nucleated RBC % 0 09/22/22 06:25: Sodium 139, Potassium 3.6, Chloride 110 H, Carbon Dioxide 21.0, Anion Gap 8, BUN 60 H, Creatinine 2.75 H, Estim Creat Clear Calc 24.69, Est GFR (MDRD) Af Amer 29 L, Est GFR (MDRD) Non-Af 24 L, BUN/Creatinine Ratio 21.8 H, Glucose 107 H, Calcium 9.0, Total Bilirubin 0.60, AST 70 H, ALT 37, Alkaline Phosphatase 158 H, Total Protein 7.3, Albumin 2.2 L, Globulin 5.1 H, Albumin/Globulin Ratio 0.4 L Micro: Microbiology 09/19/22 14:40 Wound - Chest Gram Stain - Final 09/19/22 14:40 Wound - Chest Wound Culture - Final Staphylococcus aureus 09/18/22 17:37 Urine, Catheterized Urine Culture - Final Culture exhibits no growth. 09/18/22 16:30 Blood Culture (Wb) - Anticubital Right Blood Culture - Final Pasteurella multocida 09/18/22 17:25 Blood Culture (Wb) - Anticubital Left Blood Culture - Final Pasteurella multocida 09/19/22 08:15 Stool Enteric Bacteriology - Final 09/19/22 08:15 Interface Orders C. difficile DNA Amplification - Final 09/18/22 16:19 Nasal Secretion SARS-CoV-2 & FLU Antigen (Rapid) - Final Physical Exam Narrative Physical exam: General: Alert, Oriented x3, Cooperative, morbidly obese HEENT: Atraumatic Oral: Moist Mucosa Neck: Supple Lungs: Diminished to auscultation Cardiovascular: HS I+II, regular, no murmurs Abdomen: Bowel Sounds Present, Soft, Non Tender Extremities: Bilateral leg edema +2 chronic venous stasis dermatitis and cellulitis, bilateral Norbert wraps to the lower leg Skin: Ulcers in stages of healing over the upper extremities, Neurological: Grossly intact Psych/Mental Status: Appropriate Assessment & Plan Assessment/Plan (1) Septic shock: (2) Cellulitis: PLAN: Plan 1. A. fib with RVR secondary to underlying sepsis, persistent Patient now with relative hypotension Will decrease metoprolol to 12.5 mg twice daily 2. Supratherapeutic INR, history of multiple PEs, s/p vitamin K, resolved, INR is 1.3 Started on therapeutic Lovenox with Coumadin overlap, will trend INR 3. Severe acute anemia likely secondary to acute blood loss/hemodilution Status post 1 unit of packed RBC on 09/20/22 Hemoglobin today is 8.7, will continue to monitor 4. Septic shock secondary to widespread staph aureus infected wound/cellulitis/Pasteurella bacteremia, resolved Off pressors, blood pressures remain soft Wound cultures growing staph aureus, blood cultures growing Pasteurella bacteremia Will discontinue vancomycin, continue IV cefazolin 5. Morbid obesity/chronic lymphedema/RAAD, continue CPAP Lifestyle modification recommended 6. Acute on chronic worsening lymphedema/anasarca Albumin today is 1.9, 2D echo shows EF of 55% no diastolic dysfunction Responding to IV Lasix, will switch to p.o. Lasix 40 mg twice daily 7. DVT PPx-started on therapeutic Lovenox once daily, Coumadin 5 mg daily, trend INR Charges/Coding Visit Charges Inpatient E&M: 32520 [facility] L3
--- NOTE | 2022-09-22 16:30 | CASEMGMT ---
Social Work PCU Chart reviewed for discharge planning and noted plan for SNF pending precert. Received notice from Krystina at [facility] via [facility] that precert is obtained and facility can accept patient when ready. Conferred with RN ANGI who spoke with physician. Patient is not yet ready for discharge today. Updated Krystina. Precert is good until 10.05.2022. Received update from [place] RN, CM that patient and family are interested in going to a different facility other than [facility] at time of discharge. Presented to patient's room to discuss, but nursing providing personal care and family no longer present. Called patient's daughter Carmen Richards, who is the patient's POAHC. Carmen reports to have brought up the idea of switching course on SNF to the patient and patient's . Carmen expressed that patient has been to [facility] in the past and was not the happiest there, but Carmen did not initially want to speak up about this and go against patient and patient's wishes. Provided Carmen with supportive listening, reflection, and validation of feelings as a daughter who is worried about her aging parents. This song writer educated Carmen that insurance precert is back and that whenever patient is ready to discharge this authorization is good only for [facility]. Educated that to go to a different facility, would need to cancel current precert and the new facility would have to submit another. After education, Carmen accepting of precert for [facility]. Educated Carmen that it is possible to do a nursing facility to nursing facility transfer should patient wish to move ine the future, and how Carmen would go about starting this process. Carmen expressed interest in having patient somewhere, where there is a continuum of care (independent, assisting, and prison). Educated that [facility] one of these types of facilities, plus also when there is availability accept the medicaid assisted living waiver. After discussion and allowing Carmen time to talk through thoughts, Carmen accepting of staying the course of [facility]. Completed PASRR screen via the [facility] [employer] system. Green sheet placed on chart in case of weekend discharge. [facility] number for report is [phone] [facility] number to fax is [phone] Plan: [facility], [facility]. Short term placement, though PASRR is completed. -FABIAN Parikh, BHUMI
[2022-09-22] MEDS: Furosemide 40 MG Tablet PO (17:27)
[2022-09-22] MEDS: Acetaminophen 325 MG Tablet 650 MG PO (20:13)
[2022-09-23] VITALS (14 sets, daily range): BP systolic 95–135; BP diastolic 48–80; PULSE 80–98; RESP 16–18; TEMP 36.1–36.6; O2SAT 95–99
[2022-09-23] MEDS: Cefazolin 2 GM in 0.9% Normal Saline 100 ML IV ×3 (05:37→22:20)
[2022-09-23 07:13] LABS: Absolute Lymphocyte Count 0.88 X10^3/uL (0.83-4.51); Absolute Neutrophil Count 4.2 X10^3/uL (2.0-7.7); Basophil# 0.02 X10^3/uL; Basophil% 0.3 % (0-1); Eosinophil# 0.48 X10^3/uL; Eosinophils% 7.8 % (0-5); Hematocrit 25.5 % (40-54); Hemoglobin 8.2 g/dL (13.0-16.5); Lymphocyte # 0.88 X10^3/ul (0.83-4.51); Lymphocyte % 14.3 % (19-41); Mean Corp Hgb Conc 32.2 g/dL (32-36); Mean Corpuscular Hgb 30.4 pg (27.0-32.0); Mean Corpuscular Volume 94.4 fL (80-94); Mean Platelet Vol. 9.9 fl (6.2-12.0); Monocyte# 0.44 X10^3/uL; Monocyte% 7.2 % (0-10); NRBC Flagged by Analyzer 0 % (0-5); Neutrophil # 4.15 X10^3/uL (2.7-7.7); Neutrophil % 67.6 % (47-70); Platelet Count 226 K/mm3 (150-450); RBC Distribution Width CV 14.7 % (11.6-14.6); RBC Distribution Width SD 50.5 fl (35.1-43.9); White Blood Count 6.1 K/mm3 (4.4-11.0)
[2022-09-23 07:31] LABS: International Normalized Ratio 1.3; Prothrombin Time (Protime)PT. 16.3 SECONDS (11.7-14.9)
[2022-09-23 08:12] LABS: ALB/GLOB Ratio 0.5 RATIO (0.9-2.4); AST(SGOT) 57 U/L (15-37); Alanine Aminotransfer ALT/SGPT 20 U/L (16-61); Albumin, Serum 2.1 g/dL (3.2-5.0); Alkaline Phosphatase 154 U/L (45-117); Anion Gap 7 (5-15); BUN 64 mg/dL (7-18); BUN/Creat Ratio 26.4 RATIO (10-20); Calcium,Total 8.9 mg/dL (8.5-10.1); Chloride 111 mmol/L (98-107); Creatinine, Serum 2.42 mg/dL (0.70-1.30); EST Glomerular Filtration Rate 28 mL/min (>60); Est Glom Filt Rate - Afr Amer 34 mL/min (>60); Estimated Creatinine Clearance 28.06 ml/min; Globulin 4.5 g/dL (2.2-4.2); Glucose 106 mg/dL (74-106); Potassium 3.5 mmol/L (3.5-5.1); Protein, Total 6.6 g/dL (6.4-8.2); Sodium Level 140 mmol/L (136-145)
[2022-09-23] MEDS: Metoprolol Tartrate 25 MG Tablet 12.5 MG PO ×2 (08:46→22:15)
[2022-09-23] MEDS: Juven (unflavored) Packet 1 PACKET PO ×2 (08:46→17:22)
[2022-09-23] MEDS: Allopurinol 100 MG Tablet PO (08:47)
[2022-09-23] MEDS: Acetaminophen 325 MG Tablet 650 MG PO ×2 (08:47→18:25)
[2022-09-23] MEDS: Furosemide 40 MG Tablet PO ×2 (08:47→17:23)
[2022-09-23] MEDS: Menthol/Lanolin/Calamine/Znox 113 GM Tube 1 APPLIC TOPICAL ×2 (08:48→22:14)
[2022-09-23] MEDS: Enoxaparin 80 MG/0.8 ML Syringe 160 MG SC (08:48)
[2022-09-23] MEDS: Nystatin Ointment 1 APPLIC TOPICAL (08:49)
--- NOTE | 2022-09-23 10:24 | PCM.PN.HOSP ---
Subjective Subjective Follow-up on septic shock/debility: Patient was seen and examined. Patient's heart rate is much improved. He denied any chest pain or dizziness. Objective Data Objective Data Vital Signs: Vital Signs Temp Pulse Resp BP Pulse Ox O2 Del Method 97.8 F 87 16 135/67 H 96 Room Air 09/23/22 08:38 09/23/22 08:46 09/23/22 08:38 09/23/22 08:46 09/23/22 08:38 09/23/22 10:14 Oxygen Delivery Method Room Air Weight: 160 kg Body Mass Index (BMI) 46.6 Intake & Output: Intake and Output for Last 24 Hours 09/21/22 09/22/22 09/23/22 23:59 23:59 23:59 Intake Total 982.53 / 982.53 1150 / 1150 480 / 480 Output Total 3600 / 3600 2100 / 2100 750 / 750 Balance -2617.47 / -2617.47 -950 / -950 -270 / -270 Lab / Micro Data Result Diagrams: 09/23/22 07:07 09/23/22 07:07 Labs: Laboratory Results - last 24 hr 09/23/22 07:07: WBC 6.1, RBC 2.70 L, Hgb 8.2 L, Hct 25.5 L, MCV 94.4 H, MCH 30.4, MCHC 32.2, RDW Std Deviation 50.5 H, RDW Coeff of Adiel 14.7 H, Plt Count 226, MPV 9.9, Immature Gran % (Auto) 2.800 H, Neut % (Auto) 67.6, Lymph % (Auto) 14.3 L, [place] % (Auto) 7.2, Eos % (Auto) 7.8 H, Baso % (Auto) 0.3, Absolute Neuts (auto) 4.2, Absolute Lymphs (auto) 0.88, Nucleated RBC % 0 09/23/22 07:07: Sodium 140, Potassium 3.5, Chloride 111 H, Carbon Dioxide 22.0, Anion Gap 7, BUN 64 H, Creatinine 2.42 H, Estim Creat Clear Calc 28.06, Est GFR (MDRD) Af Amer 34 L, Est GFR (MDRD) Non-Af 28 L, BUN/Creatinine Ratio 26.4 H, Glucose 106, Calcium 8.9, Total Bilirubin 0.50, AST 57 H, ALT 20, Alkaline Phosphatase 154 H, Total Protein 6.6, Albumin 2.1 L, Globulin 4.5 H, Albumin/Globulin Ratio 0.5 L 09/23/22 07:07: PT 16.3 H, INR 1.3 Micro: Microbiology 09/19/22 14:40 Wound - Chest Gram Stain - Final 09/19/22 14:40 Wound - Chest Wound Culture - Final Staphylococcus aureus 09/18/22 17:37 Urine, Catheterized Urine Culture - Final Culture exhibits no growth. 09/18/22 16:30 Blood Culture (Wb) - Anticubital Right Blood Culture - Final Pasteurella multocida 09/18/22 17:25 Blood Culture (Wb) - Anticubital Left Blood Culture - Final Pasteurella multocida 09/19/22 08:15 Stool Enteric Bacteriology - Final 09/19/22 08:15 Interface Orders C. difficile DNA Amplification - Final 09/18/22 16:19 Nasal Secretion SARS-CoV-2 & FLU Antigen (Rapid) - Final Physical Exam Narrative Physical exam: General: Alert, Oriented x3, Cooperative, morbidly obese HEENT: Atraumatic Oral: Moist Mucosa Neck: Supple Lungs: Diminished to auscultation Cardiovascular: HS I+II, regular, no murmurs Abdomen: Bowel Sounds Present, Soft, Non Tender Extremities: Bilateral leg edema +2 chronic venous stasis dermatitis and cellulitis, bilateral Norbert wraps to the lower leg Skin: Ulcers in stages of healing over the upper extremities, Neurological: Grossly intact Psych/Mental Status: Appropriate Assessment & Plan Assessment/Plan (1) Septic shock: (2) Cellulitis: PLAN: Plan 1. A. fib with RVR secondary to underlying sepsis, in NSR now BPs are also improved, continue on metoprolol 12.5 mg twice daily 2. Supratherapeutic INR, resolved History of multiple PEs, s/p vitamin K, INR is 1.3, Continue on therapeutic Lovenox with Coumadin overlap, trend INR 3. Severe acute anemia likely secondary to acute blood loss/hemodilution Status post 1 unit of packed RBC on 09/20/22 Hemoglobin today is 8.2, will continue to monitor 4. Septic shock secondary to widespread staph aureus infected wound/cellulitis/Pasteurella bacteremia, resolved Off pressors, blood pressures remain soft Wound cultures growing staph aureus, blood cultures growing Pasteurella bacteremia Continue IV cefazolin 5. Morbid obesity/chronic lymphedema/RAAD, continue CPAP Lifestyle modification recommended 6. Acute on chronic worsening lymphedema/anasarca Albumin today is 2.1, 2D echo shows EF of 55% no diastolic dysfunction Continue on p.o. Lasix 40 mg twice daily 7. DVT PPx-on therapeutic Lovenox Charges/Coding Visit Charges Inpatient E&M: 47884 [facility] Hosp L3
--- NOTE | 2022-09-23 14:28 | CASEMGMT ---
SW Note JACKSON reviewed HENS. PASS completed on 09/22/22. JACKSON scanned PASS and sent it to Leonora at [facility]. JACKSON also sent confidental fax to [place] advising of planned discharge for patient on Sunday. Whitney PERALTA
[2022-09-23] MEDS: 0.9% Saline Lock 10 ML Syringe IV (18:02)
[2022-09-24] VITALS (9 sets, daily range): BP systolic 97–119; BP diastolic 55–64; PULSE 77–103; RESP 16–20; TEMP 36.4–36.6; O2SAT 96–99
[2022-09-24] MEDS: Cefazolin 2 GM in 0.9% Normal Saline 100 ML IV (05:37)
[2022-09-24] MEDS: 0.9% Saline Lock 10 ML Syringe IV (05:38)
[2022-09-24 06:37] LABS: Hemoglobin 8.6 g/dL (13.0-16.5); Mean Corp Hgb Conc 31.9 g/dL (32-36); Mean Corpuscular Hgb 30.2 pg (27.0-32.0); Mean Corpuscular Volume 94.7 fL (80-94); Mean Platelet Vol. 10.3 fl (6.2-12.0); POSITIVE COUNT YES; POSITIVE MORPHOLOGY YES; Platelet Count 262 K/mm3 (150-450); RBC Distribution Width CV 14.8 % (11.6-14.6); RBC Distribution Width SD 50.6 fl (35.1-43.9); Red Blood Count 2.85 M/mm3 (4.6-6.2); White Blood Count 6.7 K/mm3 (4.4-11.0)
[2022-09-24 06:56] LABS: Differential Indicated MANUAL DIFF; Lymphocyte 13 % (19-41); Metamyelocyte 3 % (0-1); Myelocyte 1 % (0-0); Neutrophil-Segmented 67 % (47-70); Total Cells Counted 100 (MANUAL DIFF)
[2022-09-24 06:57] LABS: Absolute Neutrophil Count 4.5 X10^3/uL (2.0-7.7); Eosinophil 5 % (0-5); Monocyte 11 % (0-10); Neutrophil # 4.46 X10^3/uL (2.7-7.7); Platelet Estimate ADEQUATE (ADEQ); Red Cell Morphology NORM C+C NORMAL (NORM C&C)
[2022-09-24 06:58] LABS: Absolute Lymphocyte Count 0.86 X10^3/uL (0.83-4.51); Lymphocyte # 0.86 X10^3/ul (0.83-4.51)
[2022-09-24 07:02] LABS: ALB/GLOB Ratio 0.5 RATIO (0.9-2.4); AST(SGOT) 41 U/L (15-37); Alanine Aminotransfer ALT/SGPT 12 U/L (16-61); Albumin, Serum 2.3 g/dL (3.2-5.0); Alkaline Phosphatase 153 U/L (45-117); Anion Gap 9 (5-15); BUN 62 mg/dL (7-18); BUN/Creat Ratio 28.3 RATIO (10-20); Chloride 109 mmol/L (98-107); Creatinine, Serum 2.19 mg/dL (0.70-1.30); EST Glomerular Filtration Rate 31 mL/min (>60); Est Glom Filt Rate - Afr Amer 38 mL/min (>60); Globulin 4.6 g/dL (2.2-4.2); Glucose 105 mg/dL (74-106); Potassium 3.2 mmol/L (3.5-5.1); Protein, Total 6.9 g/dL (6.4-8.2); Sodium Level 140 mmol/L (136-145)
[2022-09-24] MEDS: Ipratropium 0.5 MG/2.5 ML SOLUTION INHALATION ×3 (07:27→15:14)
[2022-09-24] MEDS: Juven (unflavored) Packet 1 PACKET PO (08:18)
[2022-09-24] MEDS: Allopurinol 300 MG Tablet PO (08:19)
[2022-09-24] MEDS: Furosemide 40 MG Tablet PO (08:19)
[2022-09-24] MEDS: Metoprolol Tartrate 25 MG Tablet 12.5 MG PO ×2 (08:20→12:17)
[2022-09-24] MEDS: Nystatin Ointment 1 APPLIC TOPICAL (08:21)
[2022-09-24] MEDS: Enoxaparin 80 MG/0.8 ML Syringe 160 MG SC (08:21)
[2022-09-24] MEDS: Cholecalciferol (Vit D3) 125 MCG CAPSULE (5,000 UNITS) PO (08:22)
[2022-09-24 08:24] LABS: International Normalized Ratio 1.6; Prothrombin Time (Protime)PT. 18.4 SECONDS (11.7-14.9)
[2022-09-24] MEDS: Potassium Chloride Oral Tablet 20 MEQ 60 MEQ PO (08:24)
[2022-09-24 09:59] LABS: Magnesium 2.2 mg/dL (1.6-2.6)
--- NOTE | 2022-09-24 11:13 | PCM.TXEXTCAR ---
Diet Diet Order/Speech Therapy: 09/19/22 12:45 Diet: Sodium Restricted (MOD) Is pt able to select menu?: Yes Diet Comments: ok for togolese cheese if requested Routine Orders/Code Status Suppository Type: Dulcolax 10mg Suppository Frequency: Daily PRN Keep PO Greater than or Equal to (%): 94 Routine Lab Work: CBC (within 3 days), INR (daily) and - (CMP within 3 days) Code Status: Full Code Wound(s) chest: Wound Type: scattered open bleeding areas/scabs Dressing Change: Aquacel R leg: Wound Type: Stasis Ulcer Dressing Change: Aquacel Perineum: Wound Type: Abrasion Bilateral Breast: Wound Type: maceration/yeast Dressing Change: placed InterDry L knee: Wound Type: Abrasion Dressing Change: Aquacel Top of head: Wound Type: scabbed over wound Therapies Weight Bearing: Weight bearing as tolerated Physical Therapy: Eval and Treat Occupational Therapy: Eval and Treat Problem/Diagnosis (1) Septic shock: Status: Acute Code(s): A41.9 - Sepsis, unspecified organism; R65.21 - Severe sepsis with septic shock (2) Cellulitis: Status: Acute Code(s): L03.90 - Cellulitis, unspecified Plan 1. A. fib with RVR secondary to underlying sepsis, in NSR 2. Supratherapeutic INR, resolved 3. Severe acute anemia likely secondary to acute blood loss/hemodilution 4. Septic shock secondary to widespread staph aureus infected wound/cellulitis/Pasteurella bacteremia, resolved 5. Morbid obesity/chronic lymphedema/RAAD, continue CPAP 6. Acute on chronic worsening lymphedema/anasarca Allergies/Procedures Done in Hospital Allergies No Known Allergies Allergy (Verified 09/18/22 15:50) Procedures: 2-D Echocardiogram Type of Care/Length of Stay Estimated LOS: Convalescent Care Less Than 30 days Type of Care Needed: Skilled Rehab Potential: Fair Prognosis: Fair Additional Orders/Day of Discharge Additional Orders: WOUND CARE CONSULT Day of Discharge: 09/24/22 Dietary and Speech Recommendations Dietitian Recommendations/Changes: continue sodium restricted diet; continue Wilder BID for wounds and Ensure Compact TID d/t poor appetite Discharge Plan Admission Admit Date/Time: 09/18/22 21:43 Primary Reason for Your Visit: Septic shock/A. fib with RVR Attending Provider: Valentine Patterson Primary Care Provider: Phylicia Brooks Consulting Providers: Luis Eduardo Ruiz ; Rabia North ; Ashwin Wells ; John Macdonald ; Cheikh Andrews ; Dixon Hudson ; Olivia Jc [employer] Instructions Additional Instructions / Restrictions: Lovenox and Coumadin being overlapped until INR is therapeutic Daily INR Repeat CBCD, CMP within 3 days Wound instructions: Cleanse wounds to chest, abdomen, and legs daily with soap and water. pat dry. Place Aquacel and cover with dry dressings. secure with tape. please clean skin folds with soap and water and pat dry. place interdry to keep skin off skin. Wash legs and feet with soap and water. pat dry. place Aquacel to the open areas right lower leg. cover with ABD pads. Wrap legs with kerlix and EUGENE wraps. change daily and prn. Discharge Orders/Prescriptions Prescriptions: New furosemide 40 mg Tablet 40 mg PO BIDLX Qty: 0 0RF ipratropium bromide 0.02 % Solution 0.5 mg inhalation Q4H.RT PRN (Reason: sob) Qty: 0 0RF Ensure Compact Liquid 118 ml PO TIDCM Qty: 0 0RF enoxaparin 80 mg/0.8 mL Syringe 160 mg subcut DAILY Qty: 0 0RF Rx Instructions: until INR is therapeutic metoprolol tartrate 25 mg Tablet 25 mg PO BID Qty: 0 0RF menthol-zinc oxide [Calmoseptine] 0.44-20.6 % Ointment 1 applic topical BID Qty: 0 0RF Protocol: *Topical Application Instructions APPLICATION INSTRUCTIONS: Apply to buttock and coccyx Wilder (with collagen) 7-7-1.5 gram Powder In Packet 1 packet PO BIDCM Qty: 0 0RF cephalexin 500 mg capsule 500 mg PO BID 5 Days Qty: 10 0RF Continued allopurinol 300 MG tablet 300 mg PO DAILY Label Comments: GOUT warfarin 5 mg tablet 5 mg PO DAILY Hold Instructions: Until instructed to restart Label Comments: take 1 tablet by mouth as directed cholecalciferol (vitamin D3) 125 mcg (5,000 unit) tablet 5,000 unit PO DAILY Label Comments: take 1 tablet by mouth once daily acidophilus-pectin, citrus 25 million cell -100 mg Tablet 1 tab PO 4X/DAY Qty: 0 0RF nystatin 100,000 unit/gram cream 100,000 unit TOPICAL DAILY Label Comments: APPLY UNDER BREASTS AND IN ABDOMINAL FOLDS TWICE DAILY AFTER CLEANSING AND DRYING SKIN triamcinolone acetonide 0.1 % lotion 1 applic TOPICAL TID Label Comments: apply to affected area two to three times a day if needed Discontinued furosemide 40 MG tablet 40 mg PO DAILY Label Comments: WATER PILL lisinopril 20 MG tablet 20 mg PO DAILY Label Comments: BLOOD PRESSURE ibuprofen 200 mg Tablet 400 mg PO Q4H PRN (Reason: FEAVER) Referrals / Follow Up: Phylicia Brooks NP-C [Primary Care Provider] - Disposition Disposition (needs filled in before D/C Order can be placed): [facility] Facility
--- NOTE | 2022-09-24 11:36 | PCM.DC.SUM ---
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 A. fib with RVR secondary to underlying sepsis, in NSR 2. Supratherapeutic INR, resolved 3. Severe acute anemia likely secondary to acute blood loss/hemodilution 4. Septic shock secondary to widespread staph aureus infected wound/cellulitis/Pasteurella bacteremia, resolved 5. Morbid obesity/chronic lymphedema/RAAD, continue CPAP 6. Acute on chronic worsening lymphedema/anasarca Medications at Discharge Home Medications allopurinol 300 mg tablet 300 mg PO DAILY GOUT 09/11/14 cholecalciferol (vitamin D3) 125 mcg (5,000 unit) tablet 5,000 unit PO DAILY SUPPLEMENT 09/14/21 warfarin 5 mg tablet 5 mg PO DAILY BLOOD THINNER 09/14/21 acidophilus 25 million cell-pectin, citrus 100 mg tablet 1 tab PO 4X/DAY #0 tabs 09/21/21 nystatin 100,000 unit/gram topical cream 100,000 unit topical DAILY RASH 09/18/22 triamcinolone acetonide 0.1 % lotion 1 applic topical TID RASH 09/18/22 ammonium lactate 5 % lotion (Lac-Hydrin Five) 1 applic topical BID 30 days #226 grams 09/24/22 arginine 7 gram-glutam 7 gram-CaHMB 1.5 [id number]-min oral pwd pkt (Wilder (with collagen)) 1 packet PO BIDCM #0 ea 09/24/22 cephalexin 500 mg capsule 500 mg PO Q6H 5 days #20 caps 09/24/22 enoxaparin 80 mg/0.8 mL subcutaneous syringe 160 mg (1.6 mL) subcut DAILY #0 mL 09/24/22 food supplemt, lactose-reduced (Ensure Compact oral liquid) 118 ml PO TIDCM #0 mL 09/24/22 furosemide 40 mg tablet 40 mg PO BIDLX #0 tabs 09/24/22 ipratropium bromide 0.02 % solution for inhalation 0.5 mg (2.5 mL) inhalation Q4H.RT PRN sob #0 mL 09/24/22 menthol 0.44 %-zinc oxide 20.6 % topical ointment (Calmoseptine) 1 applic topical BID #0 grams 09/24/22 metoprolol tartrate 25 mg tablet 25 mg PO BID #0 tabs 09/24/22 Hospital Course Operations None Procedures 2-D Echocardiogram Summary of Care Provided Minutes Spent on Discharge: 45 Hospital Course: 77-year-old male past medical history of morbid obesity, atrial fibrillation, CKD, RAAD, chronic lymphedema who comes in with severe debility and immobility at home. Patient had multiple areas of excoriation over his chest and his lower extremities. He admits to a fever at home. Emergency room, he was found to be hypotensive, he did receive IV fluids. His blood pressures remained hypotensive. A central line was placed. He was started on IV Zosyn and vancomycin and admitted to the intensive care unit. Patient generally improved, he was continue on IV antibiotics, wound RN consulted. His blood cultures grew Pasteurella. His wound cultures grew staph aureus. Patient was transferred to the progressive care unit, he had supratherapeutic INR requiring use of vitamin K. He also went into A. fib with RVR which is believed to secondary sepsis, patient received amiodarone drip and transition later on to oral metoprolol. He had evidence of relatively low blood pressure. He had severe anemia secondary to acute blood loss from his wounds and epistaxis. He received 1 unit of packed RBCs 09/20/2022. His hemoglobin remained stable. Patient was seen by PT and OT and skilled for discharge to [facility]. He was started on Lovenox bridge with Coumadin. His INR at discharge was 1.6. He will need his INR to be monitored daily and his Lovenox stopped when he is in the therapeutic range. He was discharged on 5 more days of Keflex. He would need wound care. He also need his blood work to be closely monitored within 3 days of admission. Physical Exam Narrative Physical exam: General: Alert, Oriented x3, Cooperative, morbidly obese HEENT: Atraumatic Oral: Moist Mucosa Neck: Supple Lungs: Diminished to auscultation Cardiovascular: HS I+II, regular, no murmurs Abdomen: Bowel Sounds Present, Soft, Non Tender Extremities: Bilateral leg edema +2 chronic venous stasis dermatitis and cellulitis, bilateral Norbert wraps to the lower leg Skin: Ulcers in stages of healing over the upper extremities, Neurological: Grossly intact Psych/Mental Status: Appropriate Neck General: trachea midline Resp Auscultation: Negative for rales, rhonchi or wheezes GI GI Narrative: Patient is morbidly obese Extremity Extremity Narrative: Chronic lymphedematous changes are noted over the patient's lower extremity Weight / BMI Weight Weight: 160 kg Body Mass Index (BMI) 46.6 ABG / Lab / Microbiology Data Result Diagrams: 09/24/22 05:50 09/24/22 13:55 Laboratory: Laboratory Results - last 24 hr 09/24/22 05:50: WBC 6.7, RBC 2.85 L, Hgb 8.6 L, Hct 27.0 L, MCV 94.7 H, MCH 30.2, MCHC 31.9 L, RDW Std Deviation 50.6 H, RDW Coeff of Adiel 14.8 H, Plt Count 262, MPV 10.3, Neut % (Auto) Not Reportable, Absolute Neuts (auto) 4.5, Absolute Lymphs (auto) 0.86, Total Counted 100, Neutrophils % (Manual) 67, Lymphocytes % (Manual) 13 L, Monocytes % (Manual) 11 H, Eosinophils % (Manual) 5, Metamyelocytes % 3 H, Myelocytes % 1 H, Diff Path Review May foll, Platelet Estimate ADEQUATE, RBC Morphology NORM C+C 09/24/22 05:50: Sodium 140, Potassium 3.2 L, Chloride 109 H, Carbon Dioxide 22.0, Anion Gap 9, BUN 62 H, Creatinine 2.19 H, Estim Creat Clear Calc 31.00, Est GFR (MDRD) Af Amer 38 L, Est GFR (MDRD) Non-Af 31 L, BUN/Creatinine Ratio 28.3 H, Glucose 105, Calcium 9.0, Total Bilirubin 0.40, AST 41 H, ALT 12 L, Alkaline Phosphatase 153 H, Total Protein 6.9, Albumin 2.3 L, Globulin 4.6 H, Albumin/Globulin Ratio 0.5 L 09/24/22 05:50: Magnesium 2.2 09/24/22 07:30: PT 18.4 H, INR 1.6 Microbiology: Microbiology 09/19/22 14:40 Wound - Chest Gram Stain - Final 09/19/22 14:40 Wound - Chest Wound Culture - Final Staphylococcus aureus 09/18/22 17:37 Urine, Catheterized Urine Culture - Final Culture exhibits no growth. 09/18/22 16:30 Blood Culture (Wb) - Anticubital Right Blood Culture - Final Pasteurella multocida 09/18/22 17:25 Blood Culture (Wb) - Anticubital Left Blood Culture - Final Pasteurella multocida 09/19/22 08:15 Stool Enteric Bacteriology - Final 09/19/22 08:15 Interface Orders C. difficile DNA Amplification - Final 09/18/22 16:19 Nasal Secretion SARS-CoV-2 & FLU Antigen (Rapid) - Final D/C Instructions Discharge Diet: Low fat / Low cholesterol and 2000 mg Sodium Diet Discharge Activity: Return to Normal Activity Meaningful Use Info Meaningful Use Diagnoses (Choose all that apply): None applicable Discharge Plan Admission Admit Date/Time: 09/18/22 21:43 Primary Reason for Your Visit: Septic shock/A. fib with RVR Attending Provider: Valentine Patterson Primary Care Provider: Phylicia Brooks Consulting Providers: Luis Eduardo Ruiz ; Rabia North ; Ashwin Wells ; John Macdonald ; Cheikh Andrews ; Dixon Hudson ; Olivia Jc [employer] Instructions Additional Instructions / Restrictions: Lovenox and Coumadin being overlapped until INR is therapeutic Daily INR Repeat CBCD, CMP within 3 days Wound instructions: Cleanse wounds to chest, abdomen, and legs daily with soap and water. pat dry. Place Aquacel and cover with dry dressings. secure with tape. please clean skin folds with soap and water and pat dry. place interdry to keep skin off skin. Wash legs and feet with soap and water. pat dry. place Aquacel to the open areas right lower leg. cover with ABD pads. Wrap legs with kerlix and NORBERT wraps. change daily and prn. Discharge Orders/Prescriptions Prescriptions: New furosemide 40 mg Tablet 40 mg PO BIDLX Qty: 0 0RF ipratropium bromide 0.02 % Solution 0.5 mg inhalation Q4H.RT PRN (Reason: sob) Qty: 0 0RF Ensure Compact Liquid 118 ml PO TIDCM Qty: 0 0RF enoxaparin 80 mg/0.8 mL Syringe 160 mg subcut DAILY Qty: 0 0RF Rx Instructions: until INR is therapeutic metoprolol tartrate 25 mg Tablet 25 mg PO BID Qty: 0 0RF menthol-zinc oxide [Calmoseptine] 0.44-20.6 % Ointment 1 applic topical BID Qty: 0 0RF Protocol: *Topical Application Instructions APPLICATION INSTRUCTIONS: Apply to buttock and coccyx Wilder (with collagen) 7-7-1.5 gram Powder In Packet 1 packet PO BIDCM Qty: 0 0RF cephalexin 500 mg capsule 500 mg PO Q6H 5 Days Qty: 20 0RF Lac-Hydrin Five 5 % lotion 1 applic topical BID 30 Days Qty: 226 0RF Continued allopurinol 300 MG tablet 300 mg PO DAILY Label Comments: GOUT warfarin 5 mg tablet 5 mg PO DAILY Hold Instructions: Until instructed to restart Label Comments: take 1 tablet by mouth as directed cholecalciferol (vitamin D3) 125 mcg (5,000 unit) tablet 5,000 unit PO DAILY Label Comments: take 1 tablet by mouth once daily acidophilus-pectin, citrus 25 million cell -100 mg Tablet 1 tab PO 4X/DAY Qty: 0 0RF nystatin 100,000 unit/gram cream 100,000 unit TOPICAL DAILY Label Comments: APPLY UNDER BREASTS AND IN ABDOMINAL FOLDS TWICE DAILY AFTER CLEANSING AND DRYING SKIN triamcinolone acetonide 0.1 % lotion 1 applic TOPICAL TID Label Comments: apply to affected area two to three times a day if needed Discontinued furosemide 40 MG tablet 40 mg PO DAILY Label Comments: WATER PILL lisinopril 20 MG tablet 20 mg PO DAILY Label Comments: BLOOD PRESSURE ibuprofen 200 mg Tablet 400 mg PO Q4H PRN (Reason: FEAVER) Referrals / Follow Up: Phylicia Brooks NP-C [Primary Care Provider] - Disposition Disposition (needs filled in before D/C Order can be placed): Intermediate Facility Charges/Coding Visit Charges Inpatient E&M: 42005 Disch Hosp
[2022-09-24 14:17] LABS: Anion Gap 6 (5-15); BUN 62 mg/dL (7-18); BUN/Creat Ratio 30.4 RATIO (10-20); Calcium,Total 9.3 mg/dL (8.5-10.1); Chloride 111 mmol/L (98-107); Creatinine, Serum 2.04 mg/dL (0.70-1.30); EST Glomerular Filtration Rate 34 mL/min (>60); Est Glom Filt Rate - Afr Amer 41 mL/min (>60); Estimated Creatinine Clearance 33.28 ml/min; Glucose 115 mg/dL (74-106); Potassium 3.9 mmol/L (3.5-5.1); Sodium Level 142 mmol/L (136-145)
[2022-09-25 13:01] LABS: Pathologist Review Reviewed
--- NOTE | 2022-10-04 18:47 | CM.ED ---
JACKSON received voice mail from Jerome at [facility]. Jerome left message that she was following up to a referral on 09/19/22 and checking on the status of the patient. JACKSON reviewed chart. Patient went to [facility]. JACKSON called Jerome at [facility] and left voice mail for her advising patient went to [facility]. Whitney PERALTA
== END 2022-09-24 16:00 | DRG 871 ==
LOC: ED 19:07 → ICU 22:09 → PCU 09-19 12:32
PROVIDERS: Internal Medicine; Admitting Provider Family Medicine; Emergency Provider Emergency Medicine; PCP Nurse Practitioner Family; Visit Provider Internal Medicine
DX: A41.01 Sepsis due to Methicillin susceptible Staphylococcus aureus (principal); R65.21 Severe sepsis with septic shock; B49 Unspecified mycosis; I48.92 Unspecified atrial flutter; I87.313 Chronic venous hypertension (idiopathic) with ulcer of bilateral lower extremity; D62 Acute posthemorrhagic anemia; A28.0 Pasteurellosis; L97.912 Non-pressure chronic ulcer of unspecified part of right lower leg with fat layer exposed; Z68.42 Body mass index [BMI] 45.0-49.9, adult; L97.929 Non-pressure chronic ulcer of unspecified part of left lower leg with unspecified severity; L03.313 Cellulitis of chest wall; L03.115 Cellulitis of right lower limb; L03.116 Cellulitis of left lower limb; I27.20 Pulmonary hypertension, unspecified; I48.91 Unspecified atrial fibrillation; N18.30 Chronic kidney disease, stage 3 unspecified; E66.01 Morbid (severe) obesity due to excess calories; J40 Bronchitis, not specified as acute or chronic; R19.7 Diarrhea, unspecified; I12.9 Hypertensive chronic kidney disease with stage 1 through stage 4 chronic kidney disease, or unspecified chronic kidney disease; G47.33 Obstructive sleep apnea (adult) (pediatric); I89.0 Lymphedema, not elsewhere classified; I49.3 Ventricular premature depolarization; R79.1 Abnormal coagulation profile; R04.0 Epistaxis; Z20.822 Contact with and (suspected) exposure to COVID-19; Z79.01 Long term (current) use of anticoagulants; Z79.1 Long term (current) use of non-steroidal anti-inflammatories (NSAID); Z79.899 Other long term (current) drug therapy; Z86.711 Personal history of pulmonary embolism; Z87.891 Personal history of nicotine dependence
CPT/HCPCS: 36415; 36556; 71045; 80048; 80053; 80202; 81001; 83605; 83735; 85014; 85018; 85025; 85610; 85730; 86850; 86900; 86901; 86920; 86922; 87040; 87070; 87077; 87086; 87186; 87205; 87426; 87428; 87493; 87506; 87640; 93005; 93306; 94640; 94762; 97110; 97116; 97162; 97166; 97530; 97535; 97802; 97803; 99251; 99285; J7030; J7040; J7050; P9016; Q9957; A4216; G0463; J1940

== ENCOUNTER → 2022-11-08 | Outpatient (CLI) | payer MEDICARE, MEDICAID, SELFPAY ==
[2022-11-08 12:21] LABS: Absolute Lymphocyte Count 0.84 X10^3/uL (0.83-4.51); Absolute Neutrophil Count 4.5 X10^3/uL (2.0-7.7); Basophil# 0.04 X10^3/uL; Basophil% 0.6 % (0-1); Eosinophils% 7.9 % (0-5); Hematocrit 31.9 % (40-54); Hemoglobin 10.2 g/dL (13.0-16.5); Lymphocyte # 0.84 X10^3/ul (0.83-4.51); Lymphocyte % 13.2 % (19-41); Mean Corpuscular Volume 90.6 fL (80-94); Monocyte# 0.46 X10^3/uL; Monocyte% 7.2 % (0-10); NRBC Flagged by Analyzer 0 % (0-5); Neutrophil # 4.47 X10^3/uL (2.7-7.7); Neutrophil % 70.5 % (47-70); Platelet Count 212 K/mm3 (150-450); RBC Distribution Width CV 14.8 % (11.6-14.6); RBC Distribution Width SD 48.6 fl (35.1-43.9); Red Blood Count 3.52 M/mm3 (4.6-6.2); White Blood Count 6.4 K/mm3 (4.4-11.0)
[2022-11-08 13:40] LABS: ALB/GLOB Ratio 0.7 RATIO (0.9-2.4); AST(SGOT) 25 U/L (15-37); Alanine Aminotransfer ALT/SGPT 26 U/L (16-61); Albumin, Serum 2.9 g/dL (3.2-5.0); Alkaline Phosphatase 166 U/L (45-117); Anion Gap 9 (5-15); BUN 26 mg/dL (7-18); BUN/Creat Ratio 15.8 RATIO (10-20); Calcium,Total 9.1 mg/dL (8.5-10.1); Chloride 106 mmol/L (98-107); Creatinine, Serum 1.65 mg/dL (0.70-1.30); EST Glomerular Filtration Rate 43 mL/min (>60); Est Glom Filt Rate - Afr Amer 52 mL/min (>60); Globulin 3.9 g/dL (2.2-4.2); Glucose 117 mg/dL (74-106); Potassium 4.2 mmol/L (3.5-5.1); Protein, Total 6.8 g/dL (6.4-8.2); Sodium Level 141 mmol/L (136-145)
== END | disposition home or self-care (01) ==
LOC: LABSPEC 12:00
PROVIDERS: PCP Nurse Practitioner Family; Referring Provider Nurse Practitioner Family; Visit Provider Nurse Practitioner Family
DX: Z51.81 Encounter for therapeutic drug level monitoring (principal); N18.2 Chronic kidney disease, stage 2 (mild); L03.90 Cellulitis, unspecified
CPT/HCPCS: 80053; 85025

== ENCOUNTER 2022-11-13 14:00 | Outpatient (RCR) | payer MEDICARE, MEDICAID, SELFPAY ==
[2022-11-06 13:55] VITALS: TEMP 36.6; BMI 40.6
--- NOTE | 2022-11-06 15:08 | HP.PCM_ITS ---
History of Present Illness Date of Service: 11/06/22 Chief Complaint: Superficial ulcers to bilateral lower legs History of Wound: This 75-year-old male with multiple comorbidities presents to the wound healing center today for superficial bilateral lower leg ulcers that are recurrent and related to his chronic lower extremity edema. Patient states he was seen at the wound healing center a few years ago for the exact same thing. He said he has compression stockings that he wears usually at home, but has recently been unable to wear them. He denies any feelings currently of nausea, vomiting, fever, chills. He relates he went for lymphedema referral with Yoselin at [facility] who recommends more aggressive compression garments. He tries to elevate his limbs at rest. He also relates his nails are long and thick. He asked for help trimming these but he does not feel safe performing this on his own. He has chronic edema and temperature changes. He denies drainage, redness, or known infection to the lower extremities. 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 Idiopathic chronic venous hypertension of right leg with ulcer Lower extremity edema Lymphedema Morbid obesity due to excess calories Obesity RAAD (obstructive sleep apnea) Pain in left leg Pain in right leg Pulmonary artery hypertension Pulmonary embolism Pulmonary embolism Transient global amnesia Ulcer of right lower extremity with fat layer exposed Venous stasis dermatitis Home Medications allopurinol 300 mg tablet 300 mg PO DAILY GOUT 09/11/14 [History Last Taken 09/16/22] cholecalciferol (vitamin D3) 125 mcg (5,000 unit) tablet 5,000 unit PO DAILY SUPPLEMENT 09/14/21 [History Last Taken 09/16/22] warfarin 5 mg tablet 5 mg PO DAILY BLOOD THINNER 09/14/21 [History Last Taken 09/16/22] acidophilus 25 million cell-pectin, citrus 100 mg tablet 1 tab PO 4X/DAY #0 tabs 11/24/21 [Rx Last Taken 09/16/22] nystatin 100,000 unit/gram topical cream 100,000 unit topical DAILY RASH 09/18/22 [History Last Taken 09/16/22] triamcinolone acetonide 0.1 % lotion 1 applic topical TID RASH 09/18/22 [History Last Taken 09/16/22] ammonium lactate 5 % lotion (Lac-Hydrin Five) 1 applic topical BID 30 days #226 grams 09/24/22 [Rx Last Taken Unknown] arginine 7 gram-glutam 7 gram-CaHMB 1.5 [id number]-min oral pwd pkt (Wilder (with collagen)) 1 packet PO BIDCM #0 ea 09/24/22 [Rx Last Taken Unknown] cephalexin 500 mg capsule 500 mg PO Q6H 5 days #20 caps 09/24/22 [Rx Last Taken Unknown] enoxaparin 80 mg/0.8 mL subcutaneous syringe 160 mg (1.6 mL) subcut DAILY #0 mL 09/24/22 [Rx Last Taken Unknown] food supplemt, lactose-reduced (Ensure Compact oral liquid) 118 ml PO TIDCM #0 mL 09/24/22 [Rx Last Taken Unknown] furosemide 40 mg tablet 40 mg PO BIDLX #0 tabs 09/24/22 [Rx Last Taken Unknown] ipratropium bromide 0.02 % solution for inhalation 0.5 mg (2.5 mL) inhalation Q4H.RT PRN sob #0 mL 09/24/22 [Rx Last Taken Unknown] menthol 0.44 %-zinc oxide 20.6 % topical ointment (Calmoseptine) 1 applic topical BID #0 grams 09/24/22 [Rx Last Taken Unknown] metoprolol tartrate 25 mg tablet 25 mg PO BID #0 tabs 09/24/22 [Rx Last Taken Unknown] albuterol sulfate 90 mcg/actuation aerosol inhaler (ProAir HFA) inhalation 11/06/22 [History Last Taken Unknown] cetirizine 10 mg capsule mg 11/06/22 [History Last Taken Unknown] mupirocin 2 % topical ointment 1 applic topical BID 14 days #22 grams 11/06/22 [Rx Last Taken Unknown] potassium 11/06/22 [History Last Taken Unknown] simvastatin 20 mg tablet 20 mg PO QHS 11/06/22 [History Last Taken Unknown] vitamin B12 0.5 mg-folic acid 1 mg tablet 1 tab PO DAILY 11/06/22 [History Last Taken Unknown] Allergy/AdvReac Type Severity Reaction Status Date / Time No Known Allergies Allergy Verified 09/18/22 15:50 Family History Father Heart disease Father Diabetes Heart disease Surgical History Status post adenoidectomy Social History Smoking Status: Former smoker Tobacco: How many years used: 5 how long ago did patient quit smokin years ago alcohol intake: current alcohol intake frequency: holidays/special occasions only substance use type: does not use Vital Signs Vital Signs Vital Signs: 11/06/22 13:55 Temperature 97.9 F Temperature Source Temporal Weight Weight: 300 lb Body Mass Index (BMI) 40.6 Debridement Note Debridement Note Post-Debridement Measurements and Additional Note: Post-Debridement Measurements/Treatment WC - Nurse 1 - General Ulcer Assessment Start: 11/06/22 13:36 Freq: Status: Active Protocol: DORY Activity Type Activity Date Activity User E-sign Co-sign Detail Recorded Client Recorded Date Recorded By Document 11/06/22 13:55 SD [id number] 11/06/22 14:07 ANURADHA 11/06/22 13:55 WC - Today's Visit Information Type of service Initial Visit Arrival Mode Ambulatory,Cane Patient Identification Verified (Name & Yes ) Patient Requires Transmission-Based No Precautions Safety Precautions NA Height and Weight Height 6 ft Weight 300 lb Weight in Pounds 300.0 lbs Body Mass Index (BMI) 40.6 BMI Classification Obese BSA - Duran 2.53 Vital Signs Temperature (97.8 F-99.1 F) 97.9 F Temperature Source Temporal History Since Last Visit- (Skip if this is Patient's initial visit) Left Footwear Regular Shoe Right Footwear Regular Shoe Pain Scale: 0-10 Numeric Is Patient Pain Free? Yes - Nurse 1 - General Ulcer Measurement Start: 11/06/22 13:36 Freq: Status: Active Protocol: Activity Type Activity Date Activity User E-sign Co-sign Detail Recorded Client Recorded Date Recorded By Document 11/06/22 13:55 SD [id number] 11/06/22 14:07 AK 11/06/22 13:55 Wound Center Nurse 1 #9 L post -Combined with other wound No -Current Size (cm) - Length 6.5 -Current Size (cm) - Width 2 -Current Size (cm) - Depth 0.1 -Total Square Cm 13.0 -Photo Taken Yes -Tunneling No -Undermining/Tunneling No -Circular Undermining No -Change in Wound Grade/Stage No -Exudate Amt Medium -Exudate Type Serosanguineous -Wound Margin Distinct, Outline Attached -Granulation Amt Medium (34-66%) -Granulation Quality [place],Red -Slough/Fibrin Yes -Necrosis Amt Small (1-33%) -Necrotic Tissue Type Adherent Slough -Structure Exposed N/A -Texture (Uyen-wound Skin Appearance) No Abnormality, Assessed -Moisture (Uyen-wound Skin Appearance) No Abnormality, Assessed -Color (Uyen-wound Skin Appearance) No Abnormality, Assessed -Temperature (Uyen-wound Skin No Abnormality Appearance) (Pt Warm) -Tenderness on Palpation (Uyen-wound No Skin Appearance) -Ulcer Cleansing Rinsed/ Irrigated with Saline -Foul Odor after Cleansing No -Anesthetic Used 4% Lidocaine Solution #8 R acuña -Current Size (cm) - Length 3.3 -Current Size (cm) - Width 2 -Current Size (cm) - Depth 0.1 -Total Square Cm 6.6 -Date of Last Picture (Recall this 11/06/22 field) -Photo Taken Yes -Tunneling No -Undermining/Tunneling No -Circular Undermining No -Change in Wound Grade/Stage No -Exudate Amt Medium -Exudate Type Serosanguineous -Wound Margin Distinct, Outline Attached -Granulation Amt Medium (34-66%) -Granulation Quality N/A -Slough/Fibrin Yes -Necrosis Amt Small (1-33%) -Necrotic Tissue Type Adherent Slough -Structure Exposed N/A -Texture (Uyen-wound Skin Appearance) No Abnormality, Assessed -Moisture (Uyen-wound Skin Appearance) No Abnormality, Assessed -Color (Uyen-wound Skin Appearance) No Abnormality, Assessed -Temperature (Uyen-wound Skin No Abnormality Appearance) (Pt Warm) -Tenderness on Palpation (Uyen-wound No Skin Appearance) -Ulcer Cleansing Rinsed/ Irrigated with Saline -Foul Odor after Cleansing No -Anesthetic Used 4% Lidocaine Solution #7 L hand -Combined with other wound No -Current Size (cm) - Length 1 -Current Size (cm) - Width 1.4 -Current Size (cm) - Depth 0.1 -Total Square Cm 1.4 -Date of Last Picture (Recall this 11/06/22 field) -Photo Taken Yes -Tunneling No -Undermining/Tunneling No -Circular Undermining No -Change in Wound Grade/Stage No -Exudate Amt Small -Exudate Type Serosanguineous -Wound Margin Distinct, Outline Attached -Granulation Amt Medium (34-66%) -Granulation Quality [place],Red -Slough/Fibrin No -Necrosis Amt None Present (0 %) -Structure Exposed N/A -Texture (Uyen-wound Skin Appearance) No Abnormality, Assessed -Moisture (Uyen-wound Skin Appearance) No Abnormality, Assessed -Color (Uyen-wound Skin Appearance) No Abnormality, Assessed -Temperature (Uyen-wound Skin No Abnormality Appearance) (Pt Warm) -Tenderness on Palpation (Uyen-wound No Skin Appearance) -Ulcer Cleansing Rinsed/ Irrigated with Saline -Foul Odor after Cleansing No -Anesthetic Used 4% Lidocaine Solution #6 R hand cluster -Combined with other wound No -Current Size (cm) - Length 4 -Current Size (cm) - Width 9 -Current Size (cm) - Depth 0.1 -Total Square Cm 36 -Photo Taken Yes -Tunneling No -Undermining/Tunneling No -Circular Undermining No -Change in Wound Grade/Stage No -Exudate Amt Medium -Exudate Type Serosanguineous -Wound Margin Distinct, Outline Attached -Granulation Amt Large (67-100%) -Granulation Quality [place],Red -Slough/Fibrin Yes -Necrosis Amt Small (1-33%) -Necrotic Tissue Type Adherent Slough -Structure Exposed N/A -Texture (Uyen-wound Skin Appearance) No Abnormality, Assessed -Moisture (Uyen-wound Skin Appearance) No Abnormality, Assessed -Color (Uyen-wound Skin Appearance) No Abnormality, Assessed -Temperature (Uyen-wound Skin No Abnormality Appearance) (Pt Warm) -Tenderness on Palpation (Uyen-wound No Skin Appearance) -Ulcer Cleansing Rinsed/ Irrigated with Saline -Foul Odor after Cleansing No -Anesthetic Used 4% Lidocaine Solution #5 upper chest cluster -Current Size (cm) - Length 4 -Current Size (cm) - Width 29 -Current Size (cm) - Depth 0.1 -Total Square Cm 116 -Date of Last Picture (Recall this 11/06/22 field) -Photo Taken Yes -Tunneling No -Undermining/Tunneling No -Circular Undermining No -Change in Wound Grade/Stage No -Exudate Amt Large -Exudate Type Serosanguineous -Wound Margin Distinct, Outline Attached -Granulation Amt Large (67-100%) -Granulation Quality [place],Red -Slough/Fibrin Yes -Necrosis Amt Small (1-33%) -Necrotic Tissue Type Adherent Slough -Structure Exposed N/A -Texture (Uyen-wound Skin Appearance) No Abnormality, Assessed -Moisture (Uyen-wound Skin Appearance) Assessed,Dry/ Scaly -Color (Uyen-wound Skin Appearance) Assessed, Erythema,Rubor -Temperature (Uyen-wound Skin No Abnormality Appearance) (Pt Warm) -Tenderness on Palpation (Uyen-wound No Skin Appearance) -Ulcer Cleansing Rinsed/ Irrigated with Saline -Foul Odor after Cleansing No -Anesthetic Used 4% Lidocaine Solution Lower Limb Edema Present No Right Calf (cm) 56.5 Right Ankle (cm) 28 Left Calf (cm) 54 Left Ankle (cm) 29 - Nurse 2 - General Ulcer CM Notes Start: 11/06/22 13:36 Freq: Status: Active Protocol: Activity Type Activity Date Activity User E-sign Co-sign Detail Recorded Client Recorded Date Recorded By Document 11/06/22 14:51 [id number] 11/06/22 15:07 JAYESH 11/06/22 14:51 Wound Center Nurse 2 10-RIGHT ANTERIOR SHOULDER -Time 14:53 -Correct Patient Yes -Correct Side, Site, Position Yes -Correct Procedure Yes -Procedure Performed Yes -Type of Procedure Debridement -Clinical Debridement Subcutaneous -Tissue Removed Subcutaneous -Post Debridement (cm) - Length 6.0 -Post Debridement (cm) - Width 5.5 -Post Debridement (cm) - Depth 0.1 -Total Square (Post) (cm) 33.00 -Area of Debridement (cm) - Length 6.0 -Area of Debridement (cm) - Width 5.5 -Total Square (Area) (cm) 33.00 -Tunneling No -Undermining/Tunneling No -Circular Undermining No -Wound/Ulcer Outcome Not Healed -Ulcer Cleansing Rinsed/ Irrigated with Saline -Foul Odor after Cleansing No -Bioengineered Tissue No -Bleeding Controlled with Pressure -Treatment Response Procedure Tolerated Well -Offloading No -Debridement - Subq, 1st 20sq cm No #9 L post -Time 14:55 -Correct Patient Yes -Correct Side, Site, Position Yes -Correct Procedure Yes -Procedure Performed Yes -Type of Procedure Debridement -Clinical Debridement Subcutaneous -Tissue Removed Subcutaneous -Post Debridement (cm) - Length 6.0 -Post Debridement (cm) - Width 2.0 -Post Debridement (cm) - Depth 0.1 -Total Square (Post) (cm) 12.00 -Area of Debridement (cm) - Length 6.0 -Area of Debridement (cm) - Width 2.0 -Total Square (Area) (cm) 12.00 -Tunneling No -Undermining/Tunneling No -Circular Undermining No -Wound/Ulcer Outcome Not Healed -Ulcer Cleansing Rinsed/ Irrigated with Saline -Foul Odor after Cleansing No -Bioengineered Tissue No -Bleeding Controlled with Pressure -Treatment Response Procedure Tolerated Well -Offloading No -Debridement - Subq, 1st 20sq cm Yes -Debridement, SubQ, ea addt'l 20sq cm 5 or part thereof #8 R acuña -Time 15:03 -Correct Patient Yes -Correct Side, Site, Position Yes -Correct Procedure Yes -Procedure Performed Yes -Type of Procedure Debridement -Clinical Debridement Subcutaneous -Tissue Removed Subcutaneous -Post Debridement (cm) - Length 3.4 -Post Debridement (cm) - Width 1.7 -Post Debridement (cm) - Depth 0.1 -Total Square (Post) (cm) 5.78 -Area of Debridement (cm) - Length 3.4 -Area of Debridement (cm) - Width 1.7 -Total Square (Area) (cm) 5.78 -Tunneling No -Undermining/Tunneling No -Circular Undermining No -Wound/Ulcer Outcome Not Healed -Ulcer Cleansing Rinsed/ Irrigated with Saline -Foul Odor after Cleansing No -Bioengineered Tissue No -Bleeding Controlled with Pressure -Treatment Response Procedure Tolerated Well -Offloading No -Debridement - Subq, 1st 20sq cm No #7 L hand -Correct Patient No -Correct Side, Site, Position No -Correct Procedure No -Procedure Performed No -Wound/Ulcer Outcome Not Healed #6 R hand cluster -Correct Patient No -Correct Side, Site, Position No -Correct Procedure No -Procedure Performed No -Wound/Ulcer Outcome Not Healed #5 upper chest cluster -Time 15:04 -Correct Patient Yes -Correct Side, Site, Position Yes -Correct Procedure Yes -Procedure Performed Yes -Type of Procedure Debridement -Clinical Debridement Subcutaneous -Tissue Removed Subcutaneous -Post Debridement (cm) - Length 3.8 -Post Debridement (cm) - Width 15 -Post Debridement (cm) - Depth 0.1 -Total Square (Post) (cm) 57.0 -Area of Debridement (cm) - Length 3.8 -Area of Debridement (cm) - Width 15 -Total Square (Area) (cm) 57.0 -Tunneling No -Undermining/Tunneling No -Circular Undermining No -Wound/Ulcer Outcome Not Healed -Ulcer Cleansing Rinsed/ Irrigated with Saline -Foul Odor after Cleansing No -Bioengineered Tissue No -Bleeding Controlled with Pressure -Treatment Response Procedure Tolerated Well -Offloading No -Debridement - Subq, 1st 20sq cm No Pain Scale: 0-10 Numeric Is Patient Pain Free? Yes
--- NOTE | 2022-11-10 14:42 | HP.PCM_ITS ---
History of Present Illness Date of Service: 11/06/22 Chief Complaint: Superficial ulcers to bilateral lower legs History of Wound: Date of Service 11/06/22 Patient is a 77 year old male who has multiple skin lesions scattered over his chest, arms, hands and abdomen and legs. The initial skin lesions started from a bed bugs which were causing him to scratch. He was hospitalized at the end of August for sepsis and cellulitis. He was discharged to [facility]. He has since been discharged home and has home health from [facility]. He does admit to picking at the scabbing. He has not been consistently putting anything on these areas. He is on Warfarin for history of PE, also has a history of HTN, CKD II, anemia, RAAD, bilateral leg edema and debility. He denies fever, chills, nausea, vomiting. Progress of Wound: Right anterior shoulder ulcer, upper mid to left chest cluster, Right and dorsal left hand ulcers, right anterior leg ulcer, and left posterior leg ulcer. He also has multiple areas of scabbing over his large abdominal area. These areas are either scabbed or partially scabbed over, they are superficial. 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 Idiopathic chronic venous hypertension of right leg with ulcer Lower extremity edema Lymphedema Morbid obesity due to excess calories Obesity RAAD (obstructive sleep apnea) Pain in left leg Pain in right leg Pulmonary artery hypertension Pulmonary embolism Pulmonary embolism Transient global amnesia Ulcer of right lower extremity with fat layer exposed Venous stasis dermatitis Home Medications allopurinol 300 mg tablet 300 mg PO DAILY GOUT 09/11/14 [History Last Taken 09/16/22] cholecalciferol (vitamin D3) 125 mcg (5,000 unit) tablet 5,000 unit PO DAILY SUPPLEMENT 09/14/21 [History Last Taken 09/16/22] warfarin 5 mg tablet 5 mg PO DAILY BLOOD THINNER 09/14/21 [History Last Taken 09/16/22] acidophilus 25 million cell-pectin, citrus 100 mg tablet 1 tab PO 4X/DAY #0 tabs 09/21/21 [Rx Last Taken 09/16/22] nystatin 100,000 unit/gram topical cream 100,000 unit topical DAILY RASH 09/18/22 [History Last Taken 09/16/22] triamcinolone acetonide 0.1 % lotion 1 applic topical TID RASH 09/18/22 [History Last Taken 09/16/22] ammonium lactate 5 % lotion (Lac-Hydrin Five) 1 applic topical BID 30 days #226 grams 09/24/22 [Rx Last Taken Unknown] arginine 7 gram-glutam 7 gram-CaHMB 1.5 [id number] oral pwd pkt (Wilder (with collagen)) 1 packet PO BIDCM #0 ea 09/24/22 [Rx Last Taken Unknown] cephalexin 500 mg capsule 500 mg PO Q6H 5 days #20 caps 09/24/22 [Rx Last Taken Unknown] enoxaparin 80 mg/0.8 mL subcutaneous syringe 160 mg (1.6 mL) subcut DAILY #0 mL 09/24/22 [Rx Last Taken Unknown] food supplemt, lactose-reduced (Ensure Compact oral liquid) 118 ml PO TIDCM #0 mL 09/24/22 [Rx Last Taken Unknown] furosemide 40 mg tablet 40 mg PO BIDLX #0 tabs 09/24/22 [Rx Last Taken Unknown] ipratropium bromide 0.02 % solution for inhalation 0.5 mg (2.5 mL) inhalation Q4H.RT PRN sob #0 mL 09/24/22 [Rx Last Taken Unknown] menthol 0.44 %-zinc oxide 20.6 % topical ointment (Calmoseptine) 1 applic topical BID #0 grams 09/24/22 [Rx Last Taken Unknown] metoprolol tartrate 25 mg tablet 25 mg PO BID #0 tabs 09/24/22 [Rx Last Taken Unknown] albuterol sulfate 90 mcg/actuation aerosol inhaler (ProAir HFA) inhalation 11/06/22 [History Last Taken Unknown] cetirizine 10 mg capsule mg 11/06/22 [History Last Taken Unknown] mupirocin 2 % topical ointment 1 applic topical BID 14 days #22 grams 11/06/22 [Rx Last Taken Unknown] potassium 11/06/22 [History Last Taken Unknown] simvastatin 20 mg tablet 20 mg PO QHS 11/06/22 [History Last Taken Unknown] vitamin B12 0.5 mg-folic acid 1 mg tablet 1 tab PO DAILY 11/06/22 [History Last Taken Unknown] doxycycline monohydrate 100 mg tablet 100 mg PO BID 14 days #28 tabs 11/13/22 [Rx Last Taken Unknown] Allergy/AdvReac Type Severity Reaction Status Date / Time No Known Allergies Allergy Verified 09/18/22 15:50 Family History (Reviewed 11/10/22 @ 15:40 by Camille Bernal FOREIGN LAW CONSULTANT, FOREIGN LAW CONSULTANT-C) Father Heart disease Father Diabetes Heart disease Surgical History Status post adenoidectomy Social History (Reviewed 11/10/22 @ 15:40 by Camille Bernal FOREIGN LAW CONSULTANT, FOREIGN LAW CONSULTANT-C) Smoking Status: Former smoker Tobacco: How many years used: 5 how long ago did patient quit smokin years ago alcohol intake: current alcohol intake frequency: holidays/special occasions only substance use type: does not use ROS Constitutional Constitutional: Denies fever(s), frequent falls or headache(s) Eyes Eyes: Reports requires corrective lenses ENT HEENT: Reports none Cardiovascular Cardiovascular: Reports leg edema; Denies chest pain, dyspnea or vomiting Respiratory/Chest Respiratory/Chest: Denies cough, shortness of breath at rest or shortness of breath with exertion Gastrointestinal Gastrointestinal: Reports systems reviewed and no addt'l complaints, except as d ocumented Genitourinary Genitourinary: Reports systems reviewed and no addt'l complaints, except as documented Musculoskeletal Musculoskeletal: Reports joint pain, joint stiffness and joint swelling Integumentary Integumentary: Reports systems reviewed and no addt'l complaints, except as documented, lesions, skin ulcer, sores and wounds Neurologic Neurologic: Reports systems reviewed and no addt'l complaints, except as documented Psychiatric Psychiatric: Reports systems reviewed and no addt'l complaints, except as documented Endocrine Endocrinology: Reports systems reviewed and no addt'l complaints, except as documented Vital Signs Vital Signs Vital Signs: Weight Weight: 300 lb Body Mass Index (BMI) 40.6 Physical Exam Const alert, oriented x3 and no apparent distress General Appearance: cooperative and comfortable Orientation / Consciousness: awake HEENT normocephalic Head and Scalp: atraumatic Eyes General Eye: normal appearance of both eyes Neck full ROM Resp normal respiratory effort, normal air movement and clear to auscultation bilaterally Effort and Inspection: able to speak in complete sentences Cardio regular rate and regular rhythm Peripheral Pulses: dorsalis pedis pulses present GI normal to inspection, nondistended, normoactive bowel sounds, soft to palpation and non-tender Back/Spine normal ROM Extremity normal capillary refill Skin Skin Narrative: Black scabs from scratching/picking on arms, hands, chest, abdomen, legs and anterior feet. Wound Narrative: Right anterior shoulder ulcer has thickened scabs but has drainage. Upper mid to left chest cluster ulcers are dry and scabby, as are bilateral thighs and legs. Ulcers to left posterior/lateral leg, right anterior leg with red centers and dry, scabbing surrounding the ulcer. Neuro oriented x3 and moves all extremities Psych mental status grossly normal and thought process normal Appearance: appropriate Debridement Note Debridement Note Wound debrided: (#5) upper chest cluster and (#10) Right anterior shoulder/chest Wound Grade/Stage: Stage II Type of Debridement: Excisional debridement Anesthesia Used: 4% Lidocaine Solution Depth: Down to and including healthy tissue and in the subcutaneous layer Percentage of wound debrided: 100 Instrument Used: 7mm curette Tissue Removed: Devitalized tissue and slough Severity: Limited To Skin Breakdown Amount of bleeding with debridement: Mild Bleeding Controlled with: Pressure and Compression and gauze Patient tolerated procedure: Patient tolerated procedure well Post-Debridement Measurements and Additional Note: Post-Debridement Measurements/Treatment - Nurse 1 - General Ulcer Assessment Start: 11/06/22 13:36 Freq: Status: Active Protocol: DORY Activity Type Activity Date Activity User E-sign Co-sign Detail Recorded Client Recorded Date Recorded By Document 11/06/22 13:55 ANURADHA [id number] 11/06/22 14:07 ANURADHA 11/06/22 13:55 - Today's Visit Information Type of service Initial Visit Arrival Mode Ambulatory,Cane Patient Identification Verified (Name & Yes ) Patient Requires Transmission-Based No Precautions Safety Precautions NA Height and Weight Height 6 ft Weight 300 lb Weight in Pounds 300.0 lbs Body Mass Index (BMI) 40.6 BMI Classification Obese BSA - Duran 2.53 Vital Signs Temperature (97.8 F-99.1 F) 97.9 F Temperature Source Temporal History Since Last Visit- (Skip if this is Patient's initial visit) Left Footwear Regular Shoe Right Footwear Regular Shoe Pain Scale: 0-10 Numeric Is Patient Pain Free? Yes WC - Nurse 1 - General Ulcer Measurement Start: 11/06/22 13:36 Freq: Status: Active Protocol: Activity Type Activity Date Activity User E-sign Co-sign Detail Recorded Client Recorded Date Recorded By Document 11/06/22 13:55 ID [id number] 11/06/22 14:07 AK 11/06/22 13:55 Wound Center Nurse 1 #9 L posterior/lateral leg -Combined with other wound No -Current Size (cm) - Length 6.5 -Current Size (cm) - Width 2 -Current Size (cm) - Depth 0.1 -Total Square Cm 13.0 -Photo Taken Yes -Tunneling No -Undermining/Tunneling No -Circular Undermining No -Change in Wound Grade/Stage No -Exudate Amt Medium -Exudate Type Serosanguineous -Wound Margin Distinct, Outline Attached -Granulation Amt Medium (34-66%) -Granulation Quality [place],Red -Slough/Fibrin Yes -Necrosis Amt Small (1-33%) -Necrotic Tissue Type Adherent Slough -Structure Exposed N/A -Texture (Uyen-wound Skin Appearance) No Abnormality, Assessed -Moisture (Uyen-wound Skin Appearance) No Abnormality, Assessed -Color (Uyen-wound Skin Appearance) No Abnormality, Assessed -Temperature (Uyen-wound Skin No Abnormality Appearance) (Pt Warm) -Tenderness on Palpation (Uyen-wound No Skin Appearance) -Ulcer Cleansing Rinsed/ Irrigated with Saline -Foul Odor after Cleansing No -Anesthetic Used 4% Lidocaine Solution #8 R acuña -Current Size (cm) - Length 3.3 -Current Size (cm) - Width 2 -Current Size (cm) - Depth 0.1 -Total Square Cm 6.6 -Date of Last Picture (Recall this 11/06/22 field) -Photo Taken Yes -Tunneling No -Undermining/Tunneling No -Circular Undermining No -Change in Wound Grade/Stage No -Exudate Amt Medium -Exudate Type Serosanguineous -Wound Margin Distinct, Outline Attached -Granulation Amt Medium (34-66%) -Granulation Quality N/A -Slough/Fibrin Yes -Necrosis Amt Small (1-33%) -Necrotic Tissue Type Adherent Slough -Structure Exposed N/A -Texture (Uyen-wound Skin Appearance) No Abnormality, Assessed -Moisture (Uyen-wound Skin Appearance) No Abnormality, Assessed -Color (Uyen-wound Skin Appearance) No Abnormality, Assessed -Temperature (Uyen-wound Skin No Abnormality Appearance) (Pt Warm) -Tenderness on Palpation (Uyen-wound No Skin Appearance) -Ulcer Cleansing Rinsed/ Irrigated with Saline -Foul Odor after Cleansing No -Anesthetic Used 4% Lidocaine Solution #7 L hand -Combined with other wound No -Current Size (cm) - Length 1 -Current Size (cm) - Width 1.4 -Current Size (cm) - Depth 0.1 -Total Square Cm 1.4 -Date of Last Picture (Recall this 11/06/22 field) -Photo Taken Yes -Tunneling No -Undermining/Tunneling No -Circular Undermining No -Change in Wound Grade/Stage No -Exudate Amt Small -Exudate Type Serosanguineous -Wound Margin Distinct, Outline Attached -Granulation Amt Medium (34-66%) -Granulation Quality [place],Red -Slough/Fibrin No -Necrosis Amt None Present (0 %) -Structure Exposed N/A -Texture (Uyen-wound Skin Appearance) No Abnormality, Assessed -Moisture (Uyen-wound Skin Appearance) No Abnormality, Assessed -Color (Uyen-wound Skin Appearance) No Abnormality, Assessed -Temperature (Uyen-wound Skin No Abnormality Appearance) (Pt Warm) -Tenderness on Palpation (Uyen-wound No Skin Appearance) -Ulcer Cleansing Rinsed/ Irrigated with Saline -Foul Odor after Cleansing No -Anesthetic Used 4% Lidocaine Solution #6 R hand cluster -Combined with other wound No -Current Size (cm) - Length 4 -Current Size (cm) - Width 9 -Current Size (cm) - Depth 0.1 -Total Square Cm 36 -Photo Taken Yes -Tunneling No -Undermining/Tunneling No -Circular Undermining No -Change in Wound Grade/Stage No -Exudate Amt Medium -Exudate Type Serosanguineous -Wound Margin Distinct, Outline Attached -Granulation Amt Large (67-100%) -Granulation Quality [place],Red -Slough/Fibrin Yes -Necrosis Amt Small (1-33%) -Necrotic Tissue Type Adherent Slough -Structure Exposed N/A -Texture (Uyen-wound Skin Appearance) No Abnormality, Assessed -Moisture (Uyen-wound Skin Appearance) No Abnormality, Assessed -Color (Uyen-wound Skin Appearance) No Abnormality, Assessed -Temperature (Uyen-wound Skin No Abnormality Appearance) (Pt Warm) -Tenderness on Palpation (Uyen-wound No Skin Appearance) -Ulcer Cleansing Rinsed/ Irrigated with Saline -Foul Odor after Cleansing No -Anesthetic Used 4% Lidocaine Solution #5 upper chest cluster -Current Size (cm) - Length 4 -Current Size (cm) - Width 29 -Current Size (cm) - Depth 0.1 -Total Square Cm 116 -Date of Last Picture (Recall this 11/06/22 field) -Photo Taken Yes -Tunneling No -Undermining/Tunneling No -Circular Undermining No -Change in Wound Grade/Stage No -Exudate Amt Large -Exudate Type Serosanguineous -Wound Margin Distinct, Outline Attached -Granulation Amt Large (67-100%) -Granulation Quality [place],Red -Slough/Fibrin Yes -Necrosis Amt Small (1-33%) -Necrotic Tissue Type Adherent Slough -Structure Exposed N/A -Texture (Uyen-wound Skin Appearance) No Abnormality, Assessed -Moisture (Uyen-wound Skin Appearance) Assessed,Dry/ Scaly -Color (Uyen-wound Skin Appearance) Assessed, Erythema,Rubor -Temperature (Uyen-wound Skin No Abnormality Appearance) (Pt Warm) -Tenderness on Palpation (Uyen-wound No Skin Appearance) -Ulcer Cleansing Rinsed/ Irrigated with Saline -Foul Odor after Cleansing No -Anesthetic Used 4% Lidocaine Solution Lower Limb Edema Present No Right Calf (cm) 56.5 Right Ankle (cm) 28 Left Calf (cm) 54 Left Ankle (cm) 29 WC - Nurse 2 - General Ulcer CM Notes Start: 11/06/22 13:36 Freq: Status: Active Protocol: Activity Type Activity Date Activity User E-sign Co-sign Detail Recorded Client Recorded Date Recorded By Document 11/06/22 14:51 JAYESH [id number] 11/06/22 15:07 JF 11/06/22 14:51 Wound Center Nurse 2 10-RIGHT ANTERIOR SHOULDER/CHEST -Time 14:53 -Correct Patient Yes -Correct Side, Site, Position Yes -Correct Procedure Yes -Procedure Performed Yes -Type of Procedure Debridement -Clinical Debridement Subcutaneous -Tissue Removed Subcutaneous -Post Debridement (cm) - Length 6.0 -Post Debridement (cm) - Width 5.5 -Post Debridement (cm) - Depth 0.1 -Total Square (Post) (cm) 33.00 -Area of Debridement (cm) - Length 6.0 -Area of Debridement (cm) - Width 5.5 -Total Square (Area) (cm) 33.00 -Tunneling No -Undermining/Tunneling No -Circular Undermining No -Wound/Ulcer Outcome Not Healed -Ulcer Cleansing Rinsed/ Irrigated with Saline -Foul Odor after Cleansing No -Bioengineered Tissue No -Bleeding Controlled with Pressure -Treatment Response Procedure Tolerated Well -Offloading No -Debridement - Subq, 1st 20sq cm No #9 L posterior/lateral leg -Time 14:55 -Correct Patient Yes -Correct Side, Site, Position Yes -Correct Procedure Yes -Procedure Performed Yes -Type of Procedure Debridement -Clinical Debridement Subcutaneous -Tissue Removed Subcutaneous -Post Debridement (cm) - Length 6.0 -Post Debridement (cm) - Width 2.0 -Post Debridement (cm) - Depth 0.1 -Total Square (Post) (cm) 12.00 -Area of Debridement (cm) - Length 6.0 -Area of Debridement (cm) - Width 2.0 -Total Square (Area) (cm) 12.00 -Tunneling No -Undermining/Tunneling No -Circular Undermining No -Wound/Ulcer Outcome Not Healed -Ulcer Cleansing Rinsed/ Irrigated with Saline -Foul Odor after Cleansing No -Bioengineered Tissue No -Bleeding Controlled with Pressure -Treatment Response Procedure Tolerated Well -Offloading No -Debridement - Subq, 1st 20sq cm Yes -Debridement, SubQ, ea addt'l 20sq cm 5 or part thereof #8 R acuña -Time 15:03 -Correct Patient Yes -Correct Side, Site, Position Yes -Correct Procedure Yes -Procedure Performed Yes -Type of Procedure Debridement -Clinical Debridement Subcutaneous -Tissue Removed Subcutaneous -Post Debridement (cm) - Length 3.4 -Post Debridement (cm) - Width 1.7 -Post Debridement (cm) - Depth 0.1 -Total Square (Post) (cm) 5.78 -Area of Debridement (cm) - Length 3.4 -Area of Debridement (cm) - Width 1.7 -Total Square (Area) (cm) 5.78 -Tunneling No -Undermining/Tunneling No -Circular Undermining No -Wound/Ulcer Outcome Not Healed -Ulcer Cleansing Rinsed/ Irrigated with Saline -Foul Odor after Cleansing No -Bioengineered Tissue No -Bleeding Controlled with Pressure -Treatment Response Procedure Tolerated Well -Offloading No -Debridement - Subq, 1st 20sq cm No #7 L hand -Correct Patient No -Correct Side, Site, Position No -Correct Procedure No -Procedure Performed No -Wound/Ulcer Outcome Not Healed #6 R hand cluster -Correct Patient No -Correct Side, Site, Position No -Correct Procedure No -Procedure Performed No -Wound/Ulcer Outcome Not Healed #5 upper chest cluster -Time 15:04 -Correct Patient Yes -Correct Side, Site, Position Yes -Correct Procedure Yes -Procedure Performed Yes -Type of Procedure Debridement -Clinical Debridement Subcutaneous -Tissue Removed Subcutaneous -Post Debridement (cm) - Length 3.8 -Post Debridement (cm) - Width 15 -Post Debridement (cm) - Depth 0.1 -Total Square (Post) (cm) 57.0 -Area of Debridement (cm) - Length 3.8 -Area of Debridement (cm) - Width 15 -Total Square (Area) (cm) 57.0 -Tunneling No -Undermining/Tunneling No -Circular Undermining No -Wound/Ulcer Outcome Not Healed -Ulcer Cleansing Rinsed/ Irrigated with Saline -Foul Odor after Cleansing No -Bioengineered Tissue No -Bleeding Controlled with Pressure -Treatment Response Procedure Tolerated Well -Offloading No -Debridement - Subq, 1st 20sq cm No Pain Scale: 0-10 Numeric Is Patient Pain Free? Yes WC - Nurse 3 - General Ulcer D/C NN Start: 11/06/22 13:36 Freq: Status: Active Protocol: Activity Type Activity Date Activity User E-sign Co-sign Detail Recorded Client Recorded Date Recorded By Document 11/06/22 15:15 DL [id number] 11/06/22 15:21 DL 11/06/22 15:15 Wound Care Nurse 3 10-RIGHT ANTERIOR SHOULDER/CHEST -Ulcer Cleansing Rinsed/ Irrigated with Saline -Foul Odor after Cleansing No -Primary Dressing Applied C Hydrogel ($), NonAdherent Contact Layer -Primary Dressing Covered/Secured with Dry Gauze, Secured with Tape #9 L posterior/lateral leg -Ulcer Cleansing Rinsed/ Irrigated with Saline -Foul Odor after Cleansing No -Primary Dressing Applied C Hydrogel ($), NonAdherent Contact Layer -Primary Dressing Covered/Secured with Dry Gauze,Dry Gauze & Roll Gauze,Secured with Tape #8 R acuña -Ulcer Cleansing Rinsed/ Irrigated with Saline -Foul Odor after Cleansing No -Primary Dressing Applied NonAdherent Contact Layer -Other Dressing hydrogel #7 L hand -Ulcer Cleansing Rinsed/ Irrigated with Saline -Foul Odor after Cleansing No -Primary Dressing Applied Other -Other Dressing Bactroban -Primary Dressing Covered/Secured with Dry Gauze & Roll Gauze, Secured with Tape #6 R hand cluster -Ulcer Cleansing Rinsed/ Irrigated with Saline -Foul Odor after Cleansing No -Primary Dressing Applied Other -Other Dressing bactroban -Primary Dressing Covered/Secured with Dry Gauze & Roll Gauze, Secured with Tape #5 upper chest cluster -Ulcer Cleansing Rinsed/ Irrigated with Saline -Foul Odor after Cleansing No -Other Dressing hydrogel -Primary Dressing Covered/Secured with Dry Gauze, Secured with Tape Treatment Response Procedure Tolerated Well Pain Scale: 0-10 Numeric Is Patient Pain Free? Yes WC - Visit Discharge Discharge Condition Stable Ambulatory Status Ambulatory Transportation Private Auto Facility Type Home Health Orders Sent Yes Additional Wound Wound debrided: (#9) left posterior/lateral leg cluster Laterality: Left Wound Grade/Stage: Stage II Anesthesia Used: 5% Lidocaine Gel Depth: Down to and including healthy tissue and in the subcutaneous layer Percentage of wound debrided: 100 Instrument Used: 5mm curette Tissue Removed: Devitalized tissue and slough Severity: Limited To Skin Breakdown Amount of bleeding with debridement: Mild Bleeding Controlled with: Pressure and Compression and gauze Patient tolerated procedure: Patient tolerated procedure well Additional Wound Wound debrided: (#8) Right anterior leg Laterality: Right Wound Grade/Stage: Stage II Type of Debridement: Excisional debridement Anesthesia Used: 5% Lidocaine Gel Depth: Down to and including healthy tissue and in the subcutaneous layer Percentage of wound debrided: 100 Instrument Used: 5mm curette Tissue Removed: Devitalized tissue and slough Severity: Limited To Skin Breakdown Amount of bleeding with debridement: Mild Bleeding Controlled with: Pressure and Compression and gauze Patient tolerated procedure: Patient tolerated procedure well Charges/Coding Visit Charges Office Visits / Consults: 98004 OV L4 Est (25 modifier) Procedures Integumentary [id number]: [id number] Roxie subq tissue 20 sq cm/< Add On Codes: 54895 Roxie subq tissue add-on (x5) Assessment/Plan Assessment/Plan (1) Ulcer of chest wall, limited to breakdown of skin: CODE(S): L98.491 - Non-pressure chronic ulcer of skin of other sites limited to breakdown of skin (2) Ulcer of left lower extremity, limited to breakdown of skin: CODE(S): L97.921 - Non-pressure chronic ulcer of unspecified part of left lower leg limited to breakdown of skin (3) Ulcer of right lower extremity, limited to breakdown of skin: CODE(S): L97.911 - Non-pressure chronic ulcer of unspecified part of right lower leg limited to breakdown of skin (4) Skin ulcer of hand, limited to breakdown of skin: CODE(S): L98.491 - Non-pressure chronic ulcer of skin of other sites limited to breakdown of skin (5) Age-related physical debility: CODE(S): R54 - Age-related physical debility (6) Edema of both legs: CODE(S): R60.0 - Localized edema (7) Skin-picking disorder: CODE(S): F42.4 - Excoriation (skin-picking) disorder PLAN: Plan Patient evaluated at the wound healing center today. Wound care to the upper chest/anterior shoulder ulcers and right anterior leg and left posterior/lateral leg ulcers will be collagen hydrogel covered with adaptic and topped with gauze daily. Right and left dorsal hands will be Mupirocin ointment twice daily and as needed. Wash ulcers daily with soap and water before doing the dressing changes. Will prescrobe Mupirocin ointment to be used twice daily on dorsal hands. He has [employer] to help with the wound care. Stressed importance of not picking at these ulcers. Follow up one week. Greater than 38 minutes spent evaluating patient and planning care, reviewing previous notes and documenting.
[2022-11-13 14:14] VITALS: BP 140/78; PULSE 72; RESP 20; TEMP 36.6; BMI 40.6
--- NOTE | 2022-11-15 14:46 | PN.PCM_ITS ---
History of Present Illness Date of Service: 11/13/22 Chief Complaint: Superficial ulcers to bilateral lower legs History of Wound: Patient is a 77 year old male who has multiple skin lesions scattered over his chest, arms, hands and abdomen and legs. The initial skin lesions started from a bed bugs which were causing him to scratch. He was hospitalized at the end of August for sepsis and cellulitis. He was discharged to [facility]. He has since been discharged home and has home health from [facility]. He does admit to picking at the scabbing. He has not been consistently putting anything on these areas. He is on Warfarin for history of PE, also has a history of HTN, CKD II, anemia, RAAD, bilateral leg edema and debility. He denies fever, chills, nausea, vomiting. Progress of Wound: Right anterior shoulder ulcer, upper mid to left chest cluster and right anterior leg ulcer are slightly improved but are hypergranulated. The left posterior leg ulcer are slightly improved. Right and left dorsal hand ulcers are healed. New areas on the right medial and lateral leg ulcer. He also has multiple areas of scabbing over his large abdominal area. These areas are either scabbed or partially scabbed over, they are superficial. Objective Data Objective Data Vital Signs: Vital Signs Temp Pulse Resp BP 97.9 F 72 20 H 140/78 H 11/13/22 14:14 11/13/22 14:14 11/13/22 14:14 11/13/22 14:14 Weight: 300 lb Body Mass Index (BMI) 40.6 Lab / Micro Data Micro: Microbiology 11/14/22 Unknown Wound Abcess - Chest Gram Stain - Final 11/14/22 Unknown Wound Abcess - Chest Wound Culture - Preliminary Gram positive organism Charges/Coding Procedures Integumentary [id number]: [id number] Roxie subq tissue 20 sq cm/< Add On Codes: 16139 Roxie subq tissue add-on (x6) Debridement Note Debridement Note Wound debrided: (#5) upper chest cluster and (#10) Right anterior shoulder/chest Wound Grade/Stage: Stage II Type of Debridement: Excisional debridement Anesthesia Used: 4% Lidocaine Solution Depth: Down to and including healthy tissue and in the subcutaneous layer Percentage of wound debrided: 100 Instrument Used: 7mm curette Tissue Removed: Devitalized tissue and slough Severity: Limited To Skin Breakdown Amount of bleeding with debridement: Mild Bleeding Controlled with: Pressure and Compression and gauze Patient tolerated procedure: Patient tolerated procedure well Post-Debridement Measurements and Additional Note: Post-Debridement Measurements/Treatment - Nurse 1 - General Ulcer Assessment Start: 11/06/22 13:36 Freq: Status: Active Protocol: DORY Activity Type Activity Date Activity User E-sign Co-sign Detail Recorded Client Recorded Date Recorded By Document 11/06/22 13:55 AK [id number] 11/06/22 14:07 AK Document 11/13/22 14:14 DL [id number] 11/13/22 14:28 DL 11/06/22 11/13/22 13:55 14:14 WC - Today's Visit Information Type of service Initial Visit 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 ) Arrival Mode Ambulatory,Cane Ambulatory,Cane Transfer Assistance None Patient Identification Verified (Name & Yes Yes ) Patient Requires Transmission-Based No No Precautions Safety Precautions NA Height and Weight Height 6 ft Weight 300 lb Weight in Pounds 300.0 lbs Body Mass Index (BMI) 40.6 40.6 BMI Classification Obese Obese BSA - Duran 2.53 Vital Signs Temperature (97.8 F-99.1 F) 97.9 F 97.9 F Temperature Source Temporal Temporal Pulse Rate (60-100) 72 Pulse Location Monitor Respiratory Rate (12-18) 20 H Respiratory rate source Observation Blood Pressure (90/60-120/80) 140/78 H Blood Pressure Mean (mm Hg) 98 Source Monitor History Since Last Visit- (Skip if this is Patient's initial visit) Have you changed medications since your No last visit? Any new allergies or adverse reactions No Had a fall/change in ADL's that may No increase risk of falls Signs or symptoms of abuse and/or No neglect since last visit Have you been in the hospital since your No last visit? Has dressing in place as prescribed Yes Has compression in place as prescribed N/A Has offloadiing in place as prescribed N/A Experienced any changes in pain level or Yes management Left Footwear Regular Shoe Right Footwear Regular Shoe Pain Scale: 0-10 Numeric Is Patient Pain Free? Yes Yes - Nurse 1 - General Ulcer Measurement Start: 11/06/22 13:36 Freq: Status: Active Protocol: Activity Type Activity Date Activity User E-sign Co-sign Detail Recorded Client Recorded Date Recorded By Document 11/06/22 13:55 AK [id number] 11/06/22 14:07 AK Document 11/13/22 14:14 DL [id number] 11/13/22 14:28 DL 11/06/22 11/13/22 13:55 14:14 Wound Center Nurse 1 #7 L hand -Combined with other wound No -Current Size (cm) - Length 1 0.1 -Current Size (cm) - Width 1.4 0.1 -Current Size (cm) - Depth 0.1 0.1 -Total Square Cm 1.4 0.01 -Date of Last Picture (Recall this 11/06/22 field) -Photo Taken Yes No -Tunneling No -Undermining/Tunneling No -Circular Undermining No -Change in Wound Grade/Stage No -Exudate Amt Small None Present -Exudate Type Serosanguineous Serosanguineous -Wound Margin Distinct, Indistinct, Non Outline -Visible Attached -Granulation Amt Medium (34-66%) Large (67-100%) -Granulation Quality [place] -Slough/Fibrin No -Necrosis Amt None Present (0 None Present (0 %) %) -Structure Exposed N/A N/A -Texture (Uyen-wound Skin Appearance) No Abnormality, Scarring Assessed -Moisture (Uyen-wound Skin Appearance) No Abnormality, Dry/Scaly Assessed -Color (Uyen-wound Skin Appearance) No Abnormality, No Abnormality Assessed -Temperature (Uyen-wound Skin No Abnormality No Abnormality Appearance) (Pt Warm) (Pt Warm) -Tenderness on Palpation (Uyen-wound No No Skin Appearance) -Ulcer Cleansing Rinsed/ Irrigated with Saline -Foul Odor after Cleansing No -Anesthetic Used 4% Lidocaine 5% Lidocaine Solution Gel #6 R hand cluster -Combined with other wound No -Current Size (cm) - Length 4 0.1 -Current Size (cm) - Width 9 0.1 -Current Size (cm) - Depth 0.1 0.1 -Total Square Cm 36 0.01 -Photo Taken Yes Yes -Tunneling No -Undermining/Tunneling No -Circular Undermining No -Change in Wound Grade/Stage No -Exudate Amt Medium None Present -Exudate Type Serosanguineous -Wound Margin Distinct, Indistinct, Non Outline -Visible Attached -Granulation Amt Large (67-100%) Large (67-100%) -Granulation Quality [place],Red [place] -Slough/Fibrin Yes -Necrosis Amt Small (1-33%) None Present (0 %) -Necrotic Tissue Type Adherent Slough -Structure Exposed N/A N/A -Texture (Uyen-wound Skin Appearance) No Abnormality, Scarring Assessed -Moisture (Uyen-wound Skin Appearance) No Abnormality, Dry/Scaly Assessed -Color (Uyen-wound Skin Appearance) No Abnormality, No Abnormality Assessed -Temperature (Uyen-wound Skin No Abnormality No Abnormality Appearance) (Pt Warm) (Pt Warm) -Tenderness on Palpation (Uyen-wound No No Skin Appearance) -Ulcer Cleansing Rinsed/ Soap and Water Irrigated with Saline -Foul Odor after Cleansing No No -Anesthetic Used 4% Lidocaine 5% Lidocaine Solution Gel 10-RIGHT ANTERIOR SHOULDER -Current Size (cm) - Length 4.8 -Current Size (cm) - Width 3.8 -Current Size (cm) - Depth 0.1 -Total Square Cm 18.24 -Photo Taken No -Exudate Amt Large -Exudate Type Yellow/Green -Wound Margin Distinct, Outline Attached -Granulation Amt Large (67-100%) -Granulation Quality Red -Necrosis Amt Small (1-33%) -Necrotic Tissue Type Adherent Slough -Structure Exposed N/A -Texture (Uyen-wound Skin Appearance) Scarring -Moisture (Uyen-wound Skin Appearance) No Abnormality -Color (Uyen-wound Skin Appearance) No Abnormality -Temperature (Uyen-wound Skin No Abnormality Appearance) (Pt Warm) -Tenderness on Palpation (Uyen-wound No Skin Appearance) -Ulcer Cleansing Rinsed/ Irrigated with Saline -Foul Odor after Cleansing No -Anesthetic Used 5% Lidocaine Gel #9 L posterior/lateral leg -Combined with other wound No -Current Size (cm) - Length 6.5 6.1 -Current Size (cm) - Width 2 1.9 -Current Size (cm) - Depth 0.1 0.1 -Total Square Cm 13.0 11.59 -Photo Taken Yes Yes -Tunneling No -Undermining/Tunneling No -Circular Undermining No -Change in Wound Grade/Stage No -Exudate Amt Medium Small -Exudate Type Serosanguineous Sanguineous -Wound Margin Distinct, Indistinct, Non Outline -Visible Attached -Granulation Amt Medium (34-66%) Medium (34-66%) -Granulation Quality [place],Red [place] -Slough/Fibrin Yes -Necrosis Amt Small (1-33%) Medium (34-66%) -Necrotic Tissue Type Adherent Slough Adherent Slough -Structure Exposed N/A N/A -Texture (Uyen-wound Skin Appearance) No Abnormality, Scarring Assessed -Moisture (Uyen-wound Skin Appearance) No Abnormality, Dry/Scaly Assessed -Color (Uyen-wound Skin Appearance) No Abnormality, Hemosiderin Assessed Staining -Temperature (Uyen-wound Skin No Abnormality No Abnormality Appearance) (Pt Warm) (Pt Warm) -Tenderness on Palpation (Uyen-wound No No Skin Appearance) -Ulcer Cleansing Rinsed/ Soap and Water Irrigated with Saline -Foul Odor after Cleansing No No -Anesthetic Used 4% Lidocaine 5% Lidocaine Solution Gel #8 R acuña -Current Size (cm) - Length 3.3 1.4 -Current Size (cm) - Width 2 2.8 -Current Size (cm) - Depth 0.1 0.1 -Total Square Cm 6.6 3.92 -Date of Last Picture (Recall this 11/06/22 field) -Photo Taken Yes Yes -Tunneling No -Undermining/Tunneling No -Circular Undermining No -Change in Wound Grade/Stage No -Exudate Amt Medium Small -Exudate Type Serosanguineous Serosanguineous -Wound Margin Distinct, Distinct, Outline Outline Attached Attached -Granulation Amt Medium (34-66%) Large (67-100%) -Granulation Quality N/A Red -Slough/Fibrin Yes -Necrosis Amt Small (1-33%) None Present (0 %) -Necrotic Tissue Type Adherent Slough -Structure Exposed N/A -Texture (Uyen-wound Skin Appearance) No Abnormality, Scarring Assessed -Moisture (Uyen-wound Skin Appearance) No Abnormality, Dry/Scaly Assessed -Color (Uyen-wound Skin Appearance) No Abnormality, Hemosiderin Assessed Staining -Temperature (Uyen-wound Skin No Abnormality No Abnormality Appearance) (Pt Warm) (Pt Warm) -Tenderness on Palpation (Uyen-wound No No Skin Appearance) -Ulcer Cleansing Rinsed/ Soap and Water Irrigated with Saline -Foul Odor after Cleansing No No -Anesthetic Used 4% Lidocaine 5% Lidocaine Solution Gel #5 upper chest cluster -Current Size (cm) - Length 4 6 -Current Size (cm) - Width 29 23.5 -Current Size (cm) - Depth 0.1 0.1 -Total Square Cm 116 141.0 -Date of Last Picture (Recall this 11/06/22 field) -Photo Taken Yes No -Tunneling No -Undermining/Tunneling No -Circular Undermining No -Change in Wound Grade/Stage No -Exudate Amt Large Small -Exudate Type Serosanguineous Serosanguineous -Wound Margin Distinct, Indistinct, Non Outline -Visible Attached -Granulation Amt Large (67-100%) Small (1-33%) -Granulation Quality [place] -Slough/Fibrin Yes -Necrosis Amt Small (1-33%) Large (67-100%) -Necrotic Tissue Type Adherent Slough Eschar -Structure Exposed N/A N/A -Texture (Uyen-wound Skin Appearance) No Abnormality, Scarring Assessed -Moisture (Uyen-wound Skin Appearance) Assessed,Dry/ No Abnormality Scaly -Color (Uyen-wound Skin Appearance) Assessed, Erythema Erythema,Rubor -Temperature (Uyen-wound Skin No Abnormality No Abnormality Appearance) (Pt Warm) (Pt Warm) -Tenderness on Palpation (Uyen-wound No No Skin Appearance) -Ulcer Cleansing Rinsed/ Rinsed/ Irrigated with Irrigated with Saline Saline -Foul Odor after Cleansing No No -Anesthetic Used 4% Lidocaine 5% Lidocaine Solution Gel Lower Limb Edema Present No Right Calf (cm) 56.5 Right Ankle (cm) 28 Left Calf (cm) 54 Left Ankle (cm) 29 - Nurse 2 - General Ulcer CM Notes Start: 11/06/22 13:36 Freq: Status: Active Protocol: Activity Type Activity Date Activity User E-sign Co-sign Detail Recorded Client Recorded Date Recorded By Document 11/06/22 14:51 [id number] 11/06/22 15:07 Document 11/13/22 14:49 [id number] 11/13/22 15:05 11/06/22 11/13/22 14:51 14:49 Wound Center Nurse 2 #7 L hand -Correct Patient No No -Correct Side, Site, Position No No -Correct Procedure No No -Procedure Performed No No -Post Debridement (cm) - Length 0 -Post Debridement (cm) - Width 0 -Post Debridement (cm) - Depth 0 -Total Square (Post) (cm) 0 -Area of Debridement (cm) - Length 0 -Area of Debridement (cm) - Width 0 -Total Square (Area) (cm) 0 -Wound/Ulcer Outcome Not Healed Healed- Epithelialized #6 R hand cluster -Correct Patient No No -Correct Side, Site, Position No No -Correct Procedure No No -Procedure Performed No No -Post Debridement (cm) - Length 0 -Post Debridement (cm) - Width 0 -Post Debridement (cm) - Depth 0 -Total Square (Post) (cm) 0 -Area of Debridement (cm) - Length 0 -Area of Debridement (cm) - Width 0 -Total Square (Area) (cm) 0 -Wound/Ulcer Outcome Not Healed Healed- Epithelialized 12-right lateral leg cluster -Time 15:00 -Correct Patient Yes -Correct Side, Site, Position Yes -Correct Procedure Yes -Procedure Performed Yes -Type of Procedure Debridement -Clinical Debridement Subcutaneous -Tissue Removed Subcutaneous -Post Debridement (cm) - Length 6.0 -Post Debridement (cm) - Width 1.0 -Post Debridement (cm) - Depth 0.1 -Total Square (Post) (cm) 6.00 -Area of Debridement (cm) - Length 6.0 -Area of Debridement (cm) - Width 1.0 -Total Square (Area) (cm) 6.00 -Tunneling No -Undermining/Tunneling No -Circular Undermining No -Wound/Ulcer Outcome Not Healed -Ulcer Cleansing Rinsed/ Irrigated with Saline -Foul Odor after Cleansing No -Bioengineered Tissue No -Bleeding Controlled with Pressure -Treatment Response Procedure Tolerated Well -Offloading No -Debridement - Subq, 1st 20sq cm Yes -Debridement, SubQ, ea addt'l 20sq cm 6 or part thereof 11-right medial leg cluster -Time 14:59 -Correct Patient Yes -Correct Side, Site, Position Yes -Correct Procedure Yes -Procedure Performed Yes -Type of Procedure Debridement -Clinical Debridement Subcutaneous -Tissue Removed Subcutaneous -Post Debridement (cm) - Length 11 -Post Debridement (cm) - Width 1 -Post Debridement (cm) - Depth 0.1 -Total Square (Post) (cm) 11 -Area of Debridement (cm) - Length 11 -Area of Debridement (cm) - Width 1 -Total Square (Area) (cm) 11 -Tunneling No -Undermining/Tunneling No -Circular Undermining No -Wound/Ulcer Outcome Not Healed -Ulcer Cleansing Rinsed/ Irrigated with Saline -Foul Odor after Cleansing No -Bioengineered Tissue No -Bleeding Controlled with Pressure -Treatment Response Procedure Tolerated Well -Offloading No -Debridement - Subq, 1st 20sq cm No 10-RIGHT ANTERIOR SHOULDER -Time 14:53 14:49 -Correct Patient Yes Yes -Correct Side, Site, Position Yes Yes -Correct Procedure Yes Yes -Procedure Performed Yes Yes -Type of Procedure Debridement Debridement -Clinical Debridement Subcutaneous Subcutaneous -Tissue Removed Subcutaneous Subcutaneous -Post Debridement (cm) - Length 6.0 6.0 -Post Debridement (cm) - Width 5.5 4.3 -Post Debridement (cm) - Depth 0.1 0.1 -Total Square (Post) (cm) 33.00 25.80 -Area of Debridement (cm) - Length 6.0 6.0 -Area of Debridement (cm) - Width 5.5 4.3 -Total Square (Area) (cm) 33.00 25.80 -Tunneling No No -Undermining/Tunneling No No -Circular Undermining No No -Wound/Ulcer Outcome Not Healed Not Healed -Ulcer Cleansing Rinsed/ Rinsed/ Irrigated with Irrigated with Saline Saline -Foul Odor after Cleansing No No -Bioengineered Tissue No No -Bleeding Controlled with Pressure Pressure -Treatment Response Procedure Procedure Tolerated Well Tolerated Well -Offloading No No -Debridement - Subq, 1st 20sq cm No No #9 L posterior/lateral leg -Time 14:55 14:54 -Correct Patient Yes Yes -Correct Side, Site, Position Yes Yes -Correct Procedure Yes Yes -Procedure Performed Yes Yes -Type of Procedure Debridement Debridement -Clinical Debridement Subcutaneous Subcutaneous -Tissue Removed Subcutaneous Subcutaneous -Post Debridement (cm) - Length 6.0 6 -Post Debridement (cm) - Width 2.0 1 -Post Debridement (cm) - Depth 0.1 0.1 -Total Square (Post) (cm) 12.00 6 -Area of Debridement (cm) - Length 6.0 6.0 -Area of Debridement (cm) - Width 2.0 1 -Total Square (Area) (cm) 12.00 6.0 -Tunneling No No -Undermining/Tunneling No No -Circular Undermining No No -Wound/Ulcer Outcome Not Healed Not Healed -Ulcer Cleansing Rinsed/ Rinsed/ Irrigated with Irrigated with Saline Saline -Foul Odor after Cleansing No No -Bioengineered Tissue No No -Bleeding Controlled with Pressure Pressure -Treatment Response Procedure Procedure Tolerated Well Tolerated Well -Offloading No No -Debridement - Subq, 1st 20sq cm Yes No -Debridement, SubQ, ea addt'l 20sq cm 5 or part thereof #8 R acuña -Time 15:03 14:55 -Correct Patient Yes Yes -Correct Side, Site, Position Yes Yes -Correct Procedure Yes Yes -Procedure Performed Yes Yes -Type of Procedure Debridement Debridement -Clinical Debridement Subcutaneous Subcutaneous -Tissue Removed Subcutaneous Subcutaneous -Post Debridement (cm) - Length 3.4 1.8 -Post Debridement (cm) - Width 1.7 3.3 -Post Debridement (cm) - Depth 0.1 0.1 -Total Square (Post) (cm) 5.78 5.94 -Area of Debridement (cm) - Length 3.4 1.8 -Area of Debridement (cm) - Width 1.7 3.3 -Total Square (Area) (cm) 5.78 5.94 -Tunneling No No -Undermining/Tunneling No No -Circular Undermining No No -Wound/Ulcer Outcome Not Healed Not Healed -Ulcer Cleansing Rinsed/ Rinsed/ Irrigated with Irrigated with Saline Saline -Foul Odor after Cleansing No No -Bioengineered Tissue No No -Bleeding Controlled with Pressure Pressure -Treatment Response Procedure Tolerated Well -Offloading No No -Debridement - Subq, 1st 20sq cm No No #5 upper chest cluster -Time 15:04 14:57 -Correct Patient Yes Yes -Correct Side, Site, Position Yes Yes -Correct Procedure Yes Yes -Procedure Performed Yes Yes -Type of Procedure Debridement Debridement -Clinical Debridement Subcutaneous Subcutaneous -Tissue Removed Subcutaneous Subcutaneous -Post Debridement (cm) - Length 3.8 4.3 -Post Debridement (cm) - Width 15 17.5 -Post Debridement (cm) - Depth 0.1 0.1 -Total Square (Post) (cm) 57.0 75.25 -Area of Debridement (cm) - Length 3.8 4.3 -Area of Debridement (cm) - Width 15 17.5 -Total Square (Area) (cm) 57.0 75.25 -Tunneling No No -Undermining/Tunneling No No -Circular Undermining No No -Wound/Ulcer Outcome Not Healed Not Healed -Ulcer Cleansing Rinsed/ Rinsed/ Irrigated with Irrigated with Saline Saline -Foul Odor after Cleansing No No -Bioengineered Tissue No No -Bleeding Controlled with Pressure Pressure -Treatment Response Procedure Procedure Tolerated Well Tolerated Well -Offloading No No -Debridement - Subq, 1st 20sq cm No No Pain Scale: 0-10 Numeric Is Patient Pain Free? Yes Yes WC - Nurse 3 - General Ulcer D/C NN Start: 11/06/22 13:36 Freq: Status: Active Protocol: Activity Type Activity Date Activity User E-sign Co-sign Detail Recorded Client Recorded Date Recorded By Document 11/06/22 15:15 DL [id number] 11/06/22 15:21 DL Document 11/13/22 15:34 AK [id number] 11/13/22 15:37 AK 11/06/22 11/13/22 15:15 15:34 Wound Care Nurse 3 #7 L hand -Ulcer Cleansing Rinsed/ Irrigated with Saline -Foul Odor after Cleansing No -Primary Dressing Applied Other -Other Dressing Bactroban -Primary Dressing Covered/Secured with Dry Gauze & Roll Gauze, Secured with Tape #6 R hand cluster -Ulcer Cleansing Rinsed/ Irrigated with Saline -Foul Odor after Cleansing No -Primary Dressing Applied Other -Other Dressing bactroban -Primary Dressing Covered/Secured with Dry Gauze & Roll Gauze, Secured with Tape 12-right lateral leg cluster -Ulcer Cleansing Rinsed/ Irrigated with Saline -Foul Odor after Cleansing No -Negative Pressure Wound Therapy N/A -Other Dressing mupirocin -Primary Dressing Covered/Secured with Dry Gauze & Roll Gauze, Secured with Tape 11-right medial leg cluster -Ulcer Cleansing Rinsed/ Irrigated with Saline -Foul Odor after Cleansing No -Negative Pressure Wound Therapy N/A -Other Dressing mupirocin -Primary Dressing Covered/Secured with Dry Gauze & Roll Gauze, Secured with Tape 10-RIGHT ANTERIOR SHOULDER -Ulcer Cleansing Rinsed/ Rinsed/ Irrigated with Irrigated with Saline Saline -Foul Odor after Cleansing No No -Negative Pressure Wound Therapy N/A -Primary Dressing Applied C Hydrogel ($), Aquacel AG 4x4 NonAdherent Contact Layer -Primary Dressing Covered/Secured with Dry Gauze, Secured with Tape -Aquacel AG 4x4 0 #9 L posterior/lateral leg -Ulcer Cleansing Rinsed/ Rinsed/ Irrigated with Irrigated with Saline Saline -Foul Odor after Cleansing No No -Negative Pressure Wound Therapy N/A -Primary Dressing Applied C Hydrogel ($), NonAdherent Contact Layer -Other Dressing mupirocin -Primary Dressing Covered/Secured with Dry Gauze,Dry Dry Gauze & Gauze & Roll Roll Gauze, Gauze,Secured Secured with with Tape Tape #8 R acuña -Ulcer Cleansing Rinsed/ Rinsed/ Irrigated with Irrigated with Saline Saline -Foul Odor after Cleansing No No -Negative Pressure Wound Therapy N/A -Primary Dressing Applied NonAdherent Contact Layer -Other Dressing hydrogel mupirocin -Primary Dressing Covered/Secured with Dry Gauze & Roll Gauze, Secured with Tape #5 upper chest cluster -Ulcer Cleansing Rinsed/ Rinsed/ Irrigated with Irrigated with Saline Saline -Foul Odor after Cleansing No No -Negative Pressure Wound Therapy N/A -Primary Dressing Applied Aquacel AG 4x4 -Other Dressing hydrogel -Primary Dressing Covered/Secured with Dry Gauze, Dry Gauze, Secured with Secured with Tape Tape -Aquacel AG 4x4 1 Bilateral -Compression Wrap Norbert Wrap Treatment Response Procedure Tolerated Well Pain Scale: 0-10 Numeric Is Patient Pain Free? Yes Yes WC - Visit Discharge Discharge Condition Stable Stable Ambulatory Status Ambulatory Ambulatory Transportation Private Auto Private Auto Accompanied by daughter Medication Reconcilliation completed & Yes provided to patient/care provider Clinical Summary of Care Provided Yes Facility Type Home Health Orders Sent Yes Additional Wound Wound debrided: (#9) left posterior/lateral leg cluster Laterality: Left Wound Grade/Stage: Stage II Anesthesia Used: 5% Lidocaine Gel Depth: Down to and including healthy tissue and in the subcutaneous layer Percentage of wound debrided: 100 Instrument Used: 5mm curette Tissue Removed: Devitalized tissue and slough Severity: Limited To Skin Breakdown Amount of bleeding with debridement: Mild Bleeding Controlled with: Pressure and Compression and gauze Patient tolerated procedure: Patient tolerated procedure well Additional Wound Wound debrided: (#8) R anterior leg,(#11) R medial leg cluster, (#12) R lateral leg cluster Laterality: Right Wound Grade/Stage: Stage II Type of Debridement: Excisional debridement Anesthesia Used: 5% Lidocaine Gel Depth: Down to and including healthy tissue and in the subcutaneous layer Percentage of wound debrided: 100 Instrument Used: 5mm curette Tissue Removed: Devitalized tissue and slough Severity: Limited To Skin Breakdown Amount of bleeding with debridement: Mild Bleeding Controlled with: Pressure and Compression and gauze Patient tolerated procedure: Patient tolerated procedure well Assessment/Plan Assessment/Plan (1) Ulcer of chest wall, limited to breakdown of skin: CODE(S): L98.491 - Non-pressure chronic ulcer of skin of other sites limited to breakdown of skin (2) Ulcer of left lower extremity, limited to breakdown of skin: CODE(S): L97.921 - Non-pressure chronic ulcer of unspecified part of left lower leg limited to breakdown of skin (3) Ulcer of right lower extremity, limited to breakdown of skin: CODE(S): L97.911 - Non-pressure chronic ulcer of unspecified part of right lower leg limited to breakdown of skin (4) Skin ulcer of hand, limited to breakdown of skin: CODE(S): L98.491 - Non-pressure chronic ulcer of skin of other sites limited to breakdown of skin (5) Age-related physical debility: CODE(S): R54 - Age-related physical debility (6) Edema of both legs: CODE(S): R60.0 - Localized edema (7) Skin-picking disorder: CODE(S): F42.4 - Excoriation (skin-picking) disorder PLAN: Plan Patient evaluated at the wound healing center today. Wound care to the upper chest/anterior shoulder ulcers place moistened Aquacel- Ag, cover with adaptic and cover with gauze daily. On right and left leg ulcers place Mupirocin ointment covered with adaptic and topped with gauze daily. Wash ulcers daily with soap and water before doing the dressing changes. Massage scarring on hands with lotion to help soften scarring. NORBERT wrap to bilateral legs for compression. A wound culture was obtained today of the upper chest/anterior shoulder ulcers.? Will start him on Doxycycline. May need to change the antibiotic once the cultures come back. The ulcers on his dorsal hands had such an improvement with the Mupirocin ointment, that there may be an underlying staph infection. He has [facility] to help with the wound care. Stressed importance of not picking at these ulcers, which he seems to be doing less of. Follow up one week. Greater than 38 minutes spent evaluating patient and planning care, reviewing previous notes and documenting.
== END 2022-11-28 23:59 | disposition home or self-care (01) ==
LOC: WC 14:00
PROVIDERS: PCP Nurse Practitioner Family; Referring Provider Nurse Practitioner Family; Visit Provider Nurse Practitioner Family
DX: L97.821 Non-pressure chronic ulcer of other part of left lower leg limited to breakdown of skin (principal); L98.491 Non-pressure chronic ulcer of skin of other sites limited to breakdown of skin; L97.811 Non-pressure chronic ulcer of other part of right lower leg limited to breakdown of skin; N18.30 Chronic kidney disease, stage 3 unspecified; M10.9 Gout, unspecified; I12.9 Hypertensive chronic kidney disease with stage 1 through stage 4 chronic kidney disease, or unspecified chronic kidney disease; Z79.01 Long term (current) use of anticoagulants; Z87.891 Personal history of nicotine dependence; R60.0 Localized edema; F42.4 Excoriation (skin-picking) disorder; R54 Age-related physical debility
CPT/HCPCS: 11042; 11045; 87070; 87075; 87077; 87186; 87205; 99213; G0463

== ENCOUNTER → 2022-11-15 | Outpatient (CLI) | payer MEDICARE, SELFPAY ==
[2022-11-15 13:18] LABS: Absolute Lymphocyte Count 0.94 X10^3/uL (0.83-4.51); Absolute Neutrophil Count 4.5 X10^3/uL (2.0-7.7); Basophil# 0.04 X10^3/uL; Basophil% 0.6 % (0-1); Eosinophil# 0.47 X10^3/uL; Eosinophils% 7.3 % (0-5); Hematocrit 32.3 % (40-54); Hemoglobin 10.2 g/dL (13.0-16.5); Lymphocyte # 0.94 X10^3/ul (0.83-4.51); Lymphocyte % 14.7 % (19-41); Mean Corp Hgb Conc 31.6 g/dL (32-36); Mean Corpuscular Hgb 28.5 pg (27.0-32.0); Mean Corpuscular Volume 90.2 fL (80-94); Mean Platelet Vol. 10.7 fl (6.2-12.0); Monocyte# 0.45 X10^3/uL; NRBC Flagged by Analyzer 0 % (0-5); Neutrophil # 4.47 X10^3/uL (2.7-7.7); Neutrophil % 69.9 % (47-70); Platelet Count 249 K/mm3 (150-450); RBC Distribution Width CV 14.6 % (11.6-14.6); RBC Distribution Width SD 48.7 fl (35.1-43.9); Red Blood Count 3.58 M/mm3 (4.6-6.2); White Blood Count 6.4 K/mm3 (4.4-11.0)
[2022-11-15 13:47] LABS: ALB/GLOB Ratio 0.8 RATIO (0.9-2.4); AST(SGOT) 26 U/L (15-37); Alanine Aminotransfer ALT/SGPT 22 U/L (16-61); Albumin, Serum 3.1 g/dL (3.2-5.0); Alkaline Phosphatase 155 U/L (45-117); Anion Gap 8 (5-15); BUN 23 mg/dL (7-18); BUN/Creat Ratio 14.6 RATIO (10-20); Chloride 108 mmol/L (98-107); Creatinine, Serum 1.57 mg/dL (0.70-1.30); EST Glomerular Filtration Rate 46 mL/min (>60); Est Glom Filt Rate - Afr Amer 55 mL/min (>60); Globulin 3.8 g/dL (2.2-4.2); Glucose 122 mg/dL (74-106); Potassium 4.2 mmol/L (3.5-5.1); Protein, Total 6.9 g/dL (6.4-8.2); Sodium Level 142 mmol/L (136-145)
[2022-11-15 14:20] LABS: International Normalized Ratio 1.1; Prothrombin Time (Protime)PT. 14.1 SECONDS (11.7-14.9)
== END | disposition home or self-care (01) ==
LOC: LABSPEC 12:57
PROVIDERS: PCP Nurse Practitioner Family; Visit Provider Nurse Practitioner Family
DX: I10 Essential (primary) hypertension (principal); Z79.01 Long term (current) use of anticoagulants
CPT/HCPCS: 80053; 85025; 85610

== ENCOUNTER → 2022-11-22 | Outpatient (CLI) | payer MEDICARE, MEDICAID, SELFPAY ==
[2022-11-22 12:03] LABS: Absolute Lymphocyte Count 1.01 X10^3/uL (0.83-4.51); Absolute Neutrophil Count 5.2 X10^3/uL (2.0-7.7); Basophil# 0.05 X10^3/uL; Basophil% 0.7 % (0-1); Eosinophil# 0.47 X10^3/uL; Eosinophils% 6.5 % (0-5); Hematocrit 33.8 % (40-54); Hemoglobin 10.8 g/dL (13.0-16.5); Lymphocyte # 1.01 X10^3/ul (0.83-4.51); Lymphocyte % 13.9 % (19-41); Mean Corpuscular Hgb 28.3 pg (27.0-32.0); Mean Corpuscular Volume 88.7 fL (80-94); Mean Platelet Vol. 10.6 fl (6.2-12.0); Monocyte# 0.52 X10^3/uL; Monocyte% 7.2 % (0-10); NRBC Flagged by Analyzer 0 % (0-5); Neutrophil # 5.18 X10^3/uL (2.7-7.7); Neutrophil % 71.3 % (47-70); Platelet Count 232 K/mm3 (150-450); RBC Distribution Width CV 14.6 % (11.6-14.6); RBC Distribution Width SD 46.6 fl (35.1-43.9); Red Blood Count 3.81 M/mm3 (4.6-6.2); White Blood Count 7.3 K/mm3 (4.4-11.0)
[2022-11-22 12:20] LABS: ALB/GLOB Ratio 0.8 RATIO (0.9-2.4); AST(SGOT) 28 U/L (15-37); Alanine Aminotransfer ALT/SGPT 22 U/L (16-61); Albumin, Serum 3.2 g/dL (3.2-5.0); Alkaline Phosphatase 145 U/L (45-117); Anion Gap 8 (5-15); BUN 25 mg/dL (7-18); BUN/Creat Ratio 14.1 RATIO (10-20); Calcium,Total 9.1 mg/dL (8.5-10.1); Chloride 103 mmol/L (98-107); Creatinine, Serum 1.77 mg/dL (0.70-1.30); EST Glomerular Filtration Rate 40 mL/min (>60); Est Glom Filt Rate - Afr Amer 48 mL/min (>60); Glucose 141 mg/dL (74-106); Potassium 3.9 mmol/L (3.5-5.1); Protein, Total 7.2 g/dL (6.4-8.2); Sodium Level 140 mmol/L (136-145)
== END | disposition home or self-care (01) ==
LOC: LABSPEC 11:41
PROVIDERS: PCP Nurse Practitioner Family; Referring Provider Nurse Practitioner Family; Visit Provider Nurse Practitioner Family
DX: L98.9 Disorder of the skin and subcutaneous tissue, unspecified (principal); Z79.01 Long term (current) use of anticoagulants
CPT/HCPCS: 80053; 85025; 85610

== ENCOUNTER → 2022-12-06 | Outpatient (CLI) | payer MEDICARE, MEDICAID, SELFPAY ==
[2022-12-06 09:50] LABS: Absolute Lymphocyte Count 1.41 X10^3/uL (0.83-4.51); Absolute Neutrophil Count 3.5 X10^3/uL (2.0-7.7); Basophil# 0.05 X10^3/uL; Basophil% 0.8 % (0-1); Eosinophil# 0.58 X10^3/uL; Eosinophils% 9.6 % (0-5); Hemoglobin 10.2 g/dL (13.0-16.5); Lymphocyte # 1.41 X10^3/ul (0.83-4.51); Lymphocyte % 23.4 % (19-41); Mean Corp Hgb Conc 31.9 g/dL (32-36); Mean Corpuscular Volume 87.9 fL (80-94); Mean Platelet Vol. 10.5 fl (6.2-12.0); Monocyte# 0.44 X10^3/uL; Monocyte% 7.3 % (0-10); NRBC Flagged by Analyzer 0 % (0-5); Neutrophil # 3.49 X10^3/uL (2.7-7.7); Neutrophil % 58.1 % (47-70); Platelet Count 243 K/mm3 (150-450); RBC Distribution Width CV 14.7 % (11.6-14.6); RBC Distribution Width SD 47.5 fl (35.1-43.9); Red Blood Count 3.64 M/mm3 (4.6-6.2)
[2022-12-06 09:57] LABS: International Normalized Ratio 1.2; Prothrombin Time (Protime)PT. 14.5 SECONDS (11.7-14.9)
[2022-12-06 10:05] LABS: ALB/GLOB Ratio 0.8 RATIO (0.9-2.4); AST(SGOT) 18 U/L (15-37); Alanine Aminotransfer ALT/SGPT 19 U/L (16-61); Albumin, Serum 2.9 g/dL (3.2-5.0); Alkaline Phosphatase 144 U/L (45-117); Anion Gap 8 (5-15); BUN 24 mg/dL (7-18); BUN/Creat Ratio 14.7 RATIO (10-20); Calcium,Total 8.7 mg/dL (8.5-10.1); Chloride 108 mmol/L (98-107); Creatinine, Serum 1.63 mg/dL (0.70-1.30); EST Glomerular Filtration Rate 44 mL/min (>60); Est Glom Filt Rate - Afr Amer 53 mL/min (>60); Globulin 3.8 g/dL (2.2-4.2); Glucose 108 mg/dL (74-106); Potassium 3.9 mmol/L (3.5-5.1); Protein, Total 6.7 g/dL (6.4-8.2); Sodium Level 142 mmol/L (136-145)
== END | disposition home or self-care (01) ==
PROVIDERS: PCP Nurse Practitioner Family; Visit Provider Nurse Practitioner Family
DX: I13.0 Hypertensive heart and chronic kidney disease with heart failure and stage 1 through stage 4 chronic kidney disease, or unspecified chronic kidney disease (principal); Z79.01 Long term (current) use of anticoagulants
CPT/HCPCS: 11042; 11045; 29580; 80053; 85025; 85610

== ENCOUNTER 2022-12-20 11:00 | Outpatient (RCR) | payer MEDICARE, MEDICAID, SELFPAY ==
[2022-11-29 00:10] VITALS: BP 140/78; PULSE 72; RESP 20; TEMP 36.6; BMI 40.6
[2022-11-29 10:52] VITALS: BP 134/69; PULSE 101; RESP 22; TEMP 36.3; BMI 40.6
--- NOTE | 2022-11-29 12:29 | PN.PCM_ITS ---
History of Present Illness Date of Service: 11/29/22 Chief Complaint: Superficial ulcers to bilateral lower legs History of Wound: Patient is a 77 year old male who has multiple skin lesions scattered over his chest, arms, hands and abdomen and legs. The initial skin lesions started from a bed bugs which were causing him to scratch. He was hospitalized at the end of August for sepsis and cellulitis. He was discharged to [facility]. He has since been discharged home and has home health from [facility]. He does admit to picking at the scabbing. He has not been consistently putting anything on these areas. He is on Warfarin for history of PE, also has a history of HTN, CKD II, anemia, RAAD, bilateral leg edema and debility. He denies fever, chills, nausea, vomiting. Progress of Wound: Right anterior shoulder ulcer, upper mid to left chest cluster and right anterior leg ulcer and left lateral/posterior leg ulcers are improved. Right and left dorsal hand ulcers have scabs. He still has multiple scabbed areas on abdomen and bilateral legs. He states he has been tolerating the Doxycycline. Objective Data Objective Data Vital Signs: Vital Signs Temp Pulse Resp BP 97.3 F L 101 H 22 H 134/69 H 11/29/22 10:52 11/29/22 10:52 11/29/22 10:52 11/29/22 10:52 Weight: 300 lb Body Mass Index (BMI) 40.6 Charges/Coding Procedures Integumentary 111xxx-113xx: [id number] Roxie subq tissue 20 sq cm/< Add On Codes: 67958 Roxie subq tissue add-on (x7) Debridement Note Debridement Note Wound debrided: (#5) upper chest cluster and (#10) Right anterior shoulder/chest Wound Grade/Stage: Stage II Type of Debridement: Excisional debridement Anesthesia Used: 4% Lidocaine Solution Depth: Down to and including healthy tissue and in the subcutaneous layer Percentage of wound debrided: 100 Instrument Used: 7mm curette Tissue Removed: Devitalized tissue and slough Severity: Limited To Skin Breakdown Amount of bleeding with debridement: Mild Bleeding Controlled with: Pressure and Compression and gauze Patient tolerated procedure: Patient tolerated procedure well Post-Debridement Measurements and Additional Note: Post-Debridement Measurements/Treatment - Nurse 1 - General Ulcer Assessment Start: 11/29/22 10:52 Freq: Status: Active Protocol: [email or web address].[email or web address] Activity Type Activity Date Activity User E-sign Co-sign Detail Recorded Client Recorded Date Recorded By Document 11/29/22 10:52 [id number] 11/29/22 11:11 11/29/22 10:52 - Today's Visit Information Type of service Follow-up Visit (Physician/DEPARTMENTAL BUYER ) Arrival Mode Ambulatory,Cane Transfer Assistance None Patient Identification Verified (Name & Yes ) Patient Requires Transmission-Based No Precautions Height and Weight Body Mass Index (BMI) 40.6 BMI Classification Obese Vital Signs Temperature (97.8 F-99.1 F) 97.3 F L Temperature Source Temporal Pulse Rate (60-100) 101 H Pulse Location Monitor Respiratory Rate (12-18) 22 H Blood Pressure (90/60-120/80) 134/69 H Blood Pressure Mean (mm Hg) 90 Source Monitor History Since Last Visit- (Skip if this is Patient's initial visit) Have you changed medications since your No last visit? Any new allergies or adverse reactions No Had a fall/change in ADL's that may No increase risk of falls Signs or symptoms of abuse and/or No neglect since last visit Have you been in the hospital since your No last visit? Has dressing in place as prescribed Yes Has compression in place as prescribed N/A Has offloadiing in place as prescribed N/A Experienced any changes in pain level or Yes management Pain Scale: 0-10 Numeric Is Patient Pain Free? Yes - Nurse 1 - General Ulcer Measurement Start: 11/29/22 10:52 Freq: Status: Active Protocol: Activity Type Activity Date Activity User E-sign Co-sign Detail Recorded Client Recorded Date Recorded By Document 11/29/22 10:52 [id number] 11/29/22 11:11 11/29/22 10:52 Wound Center Nurse 1 12-right lateral leg cluster -Current Size (cm) - Length 0.1 -Current Size (cm) - Width 0.1 -Current Size (cm) - Depth 0.1 -Total Square Cm 0.01 -Photo Taken No -Exudate Amt None Present -Wound Margin Indistinct, Non -Visible -Granulation Amt Large (67-100%) -Granulation Quality [place] -Necrosis Amt Small (1-33%) -Necrotic Tissue Type Adherent Slough -Structure Exposed N/A -Texture (Uyen-wound Skin Appearance) Scarring -Moisture (Uyen-wound Skin Appearance) Dry/Scaly -Color (Uyen-wound Skin Appearance) Hemosiderin Staining -Temperature (Uyen-wound Skin No Abnormality Appearance) (Pt Warm) -Ulcer Cleansing Soap and Water -Foul Odor after Cleansing No #8 R acuña -Current Size (cm) - Length 0.1 -Current Size (cm) - Width 0.1 -Current Size (cm) - Depth 0.1 -Total Square Cm 0.01 -Photo Taken No -Exudate Amt None Present -Wound Margin Indistinct, Non -Visible -Granulation Amt Large (67-100%) -Granulation Quality [place] -Necrosis Amt None Present (0 %) -Texture (Uyen-wound Skin Appearance) Scarring -Moisture (Uyen-wound Skin Appearance) Dry/Scaly -Color (Uyen-wound Skin Appearance) Hemosiderin Staining -Temperature (Uyen-wound Skin No Abnormality Appearance) (Pt Warm) -Tenderness on Palpation (Uyen-wound No Skin Appearance) -Ulcer Cleansing Soap and Water -Foul Odor after Cleansing No -Anesthetic Used 5% Lidocaine Gel #7 L hand -Current Size (cm) - Length 1.8 -Current Size (cm) - Width 0.5 -Current Size (cm) - Depth 1 -Total Square Cm 0.90 -Photo Taken No -Exudate Amt None Present -Wound Margin Indistinct, Non -Visible -Granulation Amt None Present (0 %) -Necrosis Amt Large (67-100%) -Necrotic Tissue Type Adherent Slough -Structure Exposed N/A -Texture (Uyen-wound Skin Appearance) Scarring -Moisture (Uyen-wound Skin Appearance) Dry/Scaly -Color (Uyen-wound Skin Appearance) No Abnormality -Temperature (Uyen-wound Skin No Abnormality Appearance) (Pt Warm) -Tenderness on Palpation (Uyen-wound No Skin Appearance) -Ulcer Cleansing Rinsed/ Irrigated with Saline -Foul Odor after Cleansing No -Anesthetic Used 5% Lidocaine Gel #6 R hand cluster -Current Size (cm) - Length 2.8 -Current Size (cm) - Width 5.2 -Current Size (cm) - Depth 0.1 -Total Square Cm 14.56 -Photo Taken No -Exudate Amt None Present -Wound Margin Indistinct, Non -Visible -Granulation Amt None Present (0 %) -Necrosis Amt Large (67-100%) -Necrotic Tissue Type Eschar -Structure Exposed N/A -Texture (Uyen-wound Skin Appearance) Scarring -Moisture (Uyen-wound Skin Appearance) Dry/Scaly -Color (Uyen-wound Skin Appearance) No Abnormality -Temperature (Uyen-wound Skin No Abnormality Appearance) (Pt Warm) -Tenderness on Palpation (Uyen-wound No Skin Appearance) -Ulcer Cleansing Rinsed/ Irrigated with Saline -Foul Odor after Cleansing No -Anesthetic Used 5% Lidocaine Gel 11-right medial leg cluster -Current Size (cm) - Length 2.5 -Current Size (cm) - Width 1 -Current Size (cm) - Depth 0.1 -Total Square Cm 2.5 -Photo Taken No -Exudate Amt None Present -Wound Margin Thickened -Granulation Amt None Present (0 %) -Necrosis Amt Large (67-100%) -Necrotic Tissue Type Adherent Slough -Structure Exposed N/A -Texture (Uyen-wound Skin Appearance) Scarring -Moisture (Uyen-wound Skin Appearance) Dry/Scaly -Color (Uyen-wound Skin Appearance) Hemosiderin Staining -Temperature (Uyen-wound Skin No Abnormality Appearance) (Pt Warm) -Tenderness on Palpation (Uyen-wound No Skin Appearance) -Ulcer Cleansing Rinsed/ Irrigated with Saline -Foul Odor after Cleansing No -Anesthetic Used 5% Lidocaine Gel 10-RIGHT ANTERIOR SHOULDER -Current Size (cm) - Length 4 -Current Size (cm) - Width 5 -Current Size (cm) - Depth 0.1 -Total Square Cm 20 -Photo Taken No -Exudate Amt Small -Exudate Type Serosanguineous -Wound Margin Distinct, Outline Attached -Granulation Amt Large (67-100%) -Granulation Quality Hyper- granulation,Red -Necrosis Amt Small (1-33%) -Necrotic Tissue Type Adherent Slough -Structure Exposed N/A -Texture (Uyen-wound Skin Appearance) Scarring -Moisture (Uyen-wound Skin Appearance) Dry/Scaly -Color (Uyen-wound Skin Appearance) No Abnormality -Temperature (Uyen-wound Skin No Abnormality Appearance) (Pt Warm) -Tenderness on Palpation (Uyen-wound No Skin Appearance) -Ulcer Cleansing Rinsed/ Irrigated with Saline -Foul Odor after Cleansing No -Anesthetic Used 5% Lidocaine Gel #9 L post -Current Size (cm) - Length 3.5 -Current Size (cm) - Width 2 -Current Size (cm) - Depth 0.1 -Total Square Cm 7.0 -Photo Taken No -Exudate Amt None Present -Wound Margin Thickened -Granulation Amt Medium (34-66%) -Granulation Quality [place] -Necrosis Amt Medium (34-66%) -Necrotic Tissue Type Eschar -Structure Exposed N/A -Texture (Uyen-wound Skin Appearance) Scarring -Moisture (Uyen-wound Skin Appearance) Dry/Scaly -Color (Uyen-wound Skin Appearance) Hemosiderin Staining -Temperature (Uyen-wound Skin No Abnormality Appearance) (Pt Warm) -Tenderness on Palpation (Uyen-wound No Skin Appearance) -Ulcer Cleansing Rinsed/ Irrigated with Saline -Foul Odor after Cleansing No -Anesthetic Used 5% Lidocaine Gel #5 upper chest cluster -Current Size (cm) - Length 6 -Current Size (cm) - Width 15 -Current Size (cm) - Depth 0.1 -Total Square Cm 90 -Photo Taken No -Exudate Amt None Present -Wound Margin Indistinct, Non -Visible -Granulation Amt None Present (0 %) -Necrosis Amt Large (67-100%) -Necrotic Tissue Type Eschar -Structure Exposed N/A -Texture (Uyen-wound Skin Appearance) Scarring -Moisture (Uyen-wound Skin Appearance) Dry/Scaly -Color (Uyen-wound Skin Appearance) No Abnormality -Temperature (Ueyn-wound Skin No Abnormality Appearance) (Pt Warm) -Ulcer Cleansing Rinsed/ Irrigated with Saline -Foul Odor after Cleansing No -Anesthetic Used 5% Lidocaine Gel Right Calf (cm) 53.5 Right Ankle (cm) 27 Left Calf (cm) 52 Left Ankle (cm) 28.2 WC - Nurse 2 - General Ulcer CM Notes Start: 11/29/22 10:52 Freq: Status: Active Protocol: Activity Type Activity Date Activity User E-sign Co-sign Detail Recorded Client Recorded Date Recorded By Document 11/29/22 11:18 JAYESH [id number] 11/29/22 11:33 JAYESH 11/29/22 11:18 Wound Center Nurse 2 12-right lateral leg cluster -Correct Patient No -Correct Side, Site, Position No -Correct Procedure No -Procedure Performed No -Post Debridement (cm) - Length 0 -Post Debridement (cm) - Width 0 -Post Debridement (cm) - Depth 0 -Total Square (Post) (cm) 0 -Area of Debridement (cm) - Length 0 -Area of Debridement (cm) - Width 0 -Total Square (Area) (cm) 0 -Wound/Ulcer Outcome Healed- Epithelialized #8 R acuña -Time 11:21 -Correct Patient No -Correct Side, Site, Position No -Correct Procedure No -Procedure Performed No -Post Debridement (cm) - Length 0 -Post Debridement (cm) - Width 0 -Post Debridement (cm) - Depth 0 -Total Square (Post) (cm) 0 -Area of Debridement (cm) - Length 0 -Area of Debridement (cm) - Width 0 -Total Square (Area) (cm) 0 -Wound/Ulcer Outcome Healed- Epithelialized #7 L hand -Correct Patient No -Correct Side, Site, Position No -Correct Procedure No -Procedure Performed No -Post Debridement (cm) - Length 0 -Post Debridement (cm) - Width 0 -Post Debridement (cm) - Depth 0 -Total Square (Post) (cm) 0 -Wound/Ulcer Outcome Healed- Epithelialized #6 R hand cluster -Time 11:22 -Correct Patient No -Correct Side, Site, Position No -Correct Procedure No -Procedure Performed No -Post Debridement (cm) - Length 0 -Post Debridement (cm) - Width 0 -Post Debridement (cm) - Depth 0 -Total Square (Post) (cm) 0 -Area of Debridement (cm) - Length 0 -Area of Debridement (cm) - Width 0 -Total Square (Area) (cm) 0 -Tunneling No -Undermining/Tunneling No -Circular Undermining No -Wound/Ulcer Outcome Healed- Epithelialized -Ulcer Cleansing Rinsed/ Irrigated with Saline -Foul Odor after Cleansing No -Bioengineered Tissue No -Bleeding Controlled with Pressure -Treatment Response Procedure Tolerated Well -Debridement - Subq, 1st 20sq cm No 11-right medial leg cluster -Time 11:19 -Correct Patient Yes -Correct Side, Site, Position Yes -Correct Procedure Yes -Procedure Performed Yes -Type of Procedure Debridement -Clinical Debridement Subcutaneous -Tissue Removed Subcutaneous -Post Debridement (cm) - Length 0.7 -Post Debridement (cm) - Width 1 -Post Debridement (cm) - Depth 0.1 -Total Square (Post) (cm) 0.7 -Area of Debridement (cm) - Length 0.7 -Area of Debridement (cm) - Width 1 -Total Square (Area) (cm) 0.7 -Tunneling No -Undermining/Tunneling No -Circular Undermining No -Wound/Ulcer Outcome Not Healed -Ulcer Cleansing Rinsed/ Irrigated with Saline -Foul Odor after Cleansing No -Bioengineered Tissue No -Bleeding Controlled with Pressure -Treatment Response Procedure Tolerated Well -Offloading No -Debridement - Subq, 1st 20sq cm Yes -Debridement, SubQ, ea addt'l 20sq cm 7 or part thereof 10-RIGHT ANTERIOR SHOULDER -Time 11:21 -Correct Patient Yes -Correct Side, Site, Position Yes -Correct Procedure Yes -Procedure Performed Yes -Type of Procedure Debridement -Clinical Debridement Subcutaneous -Tissue Removed Subcutaneous -Post Debridement (cm) - Length 6.0 -Post Debridement (cm) - Width 3.8 -Post Debridement (cm) - Depth 0.1 -Total Square (Post) (cm) 22.80 -Area of Debridement (cm) - Length 6.0 -Area of Debridement (cm) - Width 3.8 -Total Square (Area) (cm) 22.80 -Tunneling No -Undermining/Tunneling No -Circular Undermining No -Wound/Ulcer Outcome Not Healed -Ulcer Cleansing Rinsed/ Irrigated with Saline -Foul Odor after Cleansing No -Bioengineered Tissue No -Bleeding Controlled with Pressure -Treatment Response Procedure Tolerated Well -Offloading No -Debridement - Subq, 1st 20sq cm No #9 L post -Time 11:21 -Correct Patient Yes -Correct Side, Site, Position Yes -Correct Procedure Yes -Procedure Performed Yes -Type of Procedure Debridement -Clinical Debridement Subcutaneous -Tissue Removed Subcutaneous -Post Debridement (cm) - Length 1.2 -Post Debridement (cm) - Width 0.5 -Post Debridement (cm) - Depth 0.1 -Total Square (Post) (cm) 0.60 -Area of Debridement (cm) - Length 1.2 -Area of Debridement (cm) - Width 0.5 -Total Square (Area) (cm) 0.60 -Tunneling No -Undermining/Tunneling No -Circular Undermining No -Wound/Ulcer Outcome Not Healed -Ulcer Cleansing Rinsed/ Irrigated with Saline -Foul Odor after Cleansing No -Bioengineered Tissue No -Bleeding Controlled with Pressure -Treatment Response Procedure Tolerated Well -Offloading No -Debridement - Subq, 1st 20sq cm No #5 upper chest cluster -Time 11:22 -Correct Patient Yes -Correct Side, Site, Position Yes -Correct Procedure Yes -Procedure Performed Yes -Type of Procedure Debridement -Clinical Debridement Subcutaneous -Tissue Removed Subcutaneous -Post Debridement (cm) - Length 6.0 -Post Debridement (cm) - Width 20 -Post Debridement (cm) - Depth 0.1 -Total Square (Post) (cm) 120.0 -Area of Debridement (cm) - Length 6.0 -Area of Debridement (cm) - Width 20.0 -Total Square (Area) (cm) 120.00 -Tunneling No -Undermining/Tunneling No -Circular Undermining No -Wound/Ulcer Outcome Not Healed -Ulcer Cleansing Rinsed/ Irrigated with Saline -Foul Odor after Cleansing No -Bioengineered Tissue No -Bleeding Controlled with Pressure -Treatment Response Procedure Tolerated Well -Offloading No -Debridement - Subq, 1st 20sq cm No Pain Scale: 0-10 Numeric Is Patient Pain Free? Yes WC - Nurse 3 - General Ulcer D/C NN Start: 11/29/22 10:52 Freq: Status: Active Protocol: Activity Type Activity Date Activity User E-sign Co-sign Detail Recorded Client Recorded Date Recorded By Document 11/29/22 12:22 DL [id number] 11/29/22 12:24 DL 11/29/22 12:22 Wound Care Center Nurse 3 11-right medial leg cluster -Ulcer Cleansing Rinsed/ Irrigated with Saline -Foul Odor after Cleansing No -Other Dressing bactroban -Primary Dressing Covered/Secured with Dry Gauze & Roll Gauze, Secured with Tape 10-RIGHT ANTERIOR SHOULDER -Ulcer Cleansing Rinsed/ Irrigated with Saline -Foul Odor after Cleansing No -Primary Dressing Applied Aquacel AG 4x4 -Primary Dressing Covered/Secured with Dry Gauze, Secured with Tape -Aquacel AG 4x4 1 #9 L post -Ulcer Cleansing Rinsed/ Irrigated with Saline -Foul Odor after Cleansing No -Other Dressing bactroban -Primary Dressing Covered/Secured with Dry Gauze & Roll Gauze, Secured with Tape #5 upper chest cluster -Ulcer Cleansing Rinsed/ Irrigated with Saline -Foul Odor after Cleansing No -Other Dressing aquacel ag -Primary Dressing Covered/Secured with Dry Gauze, Secured with Tape Left -Compression Wrap Norbert Wrap Right -Compression Wrap Norbert Wrap Treatment Response Procedure Tolerated Well Pain Scale: 0-10 Numeric Is Patient Pain Free? Yes WC - Visit Discharge Discharge Condition Stable Ambulatory Status Ambulatory,Cane Transportation Private Auto Facility Type Home Health Orders Sent Yes Additional Wound Wound debrided: (#9) left posterior/lateral leg ulcer Laterality: Left Wound Grade/Stage: Stage II Anesthesia Used: 5% Lidocaine Gel Depth: Down to and including healthy tissue and in the subcutaneous layer Percentage of wound debrided: 100 Instrument Used: 5mm curette Tissue Removed: Devitalized tissue and slough Severity: Limited To Skin Breakdown Amount of bleeding with debridement: Mild Bleeding Controlled with: Pressure and Compression and gauze Patient tolerated procedure: Patient tolerated procedure well Additional Wound Wound debrided: (#8) R anterior leg,(#11) Laterality: Right Wound Grade/Stage: Stage II Type of Debridement: Excisional debridement Anesthesia Used: 5% Lidocaine Gel Depth: Down to and including healthy tissue and in the subcutaneous layer Percentage of wound debrided: 100 Instrument Used: 5mm curette Tissue Removed: Devitalized tissue and slough Severity: Limited To Skin Breakdown Amount of bleeding with debridement: Mild Bleeding Controlled with: Pressure and Compression and gauze Patient tolerated procedure: Patient tolerated procedure well Assessment/Plan Assessment/Plan (1) Ulcer of chest wall, limited to breakdown of skin: CODE(S): L98.491 - Non-pressure chronic ulcer of skin of other sites limited to breakdown of skin (2) Ulcer of left lower extremity, limited to breakdown of skin: CODE(S): L97.921 - Non-pressure chronic ulcer of unspecified part of left lower leg limited to breakdown of skin (3) Ulcer of right lower extremity, limited to breakdown of skin: CODE(S): L97.911 - Non-pressure chronic ulcer of unspecified part of right lower leg limited to breakdown of skin (4) Skin ulcer of hand, limited to breakdown of skin: CODE(S): L98.491 - Non-pressure chronic ulcer of skin of other sites limited to breakdown of skin (5) Age-related physical debility: CODE(S): R54 - Age-related physical debility (6) Edema of both legs: CODE(S): R60.0 - Localized edema (7) Skin-picking disorder: CODE(S): F42.4 - Excoriation (skin-picking) disorder PLAN: Plan Patient evaluated at the wound healing center today. Wound care to the upper chest/anterior shoulder ulcers place moistened Aquacel- Ag, cover with adaptic and cover with gauze daily. On right and left leg ulcers place Mupirocin ointment covered with adaptic and topped with gauze daily. Wash ulcers daily with soap and water before doing the dressing changes. Massage scarring on hands with lotion to help soften scarring. NORBERT wrap to bilateral legs for compression. A wound culture was obtained on 11/14/22 of the upper chest/anterior shoulder ulcers which was positive for Staphylococcus aureus, Kocuria kristinae and Gram positive faraz. He is tolerating the Doxycycline well. Will renew it for additional 2 weeks. He has [facility] to help with the wound care. Stressed importance of not picking at these ulcers, which he seems to be doing less of. Follow up one week.
[2022-12-06 10:25] VITALS: BP 157/85; PULSE 71; RESP 20; TEMP 36.4; BMI 40.6
--- NOTE | 2022-12-06 11:12 | PN.PCM_ITS ---
History of Present Illness Date of Service: 12/06/22 Chief Complaint: Superficial ulcers to bilateral lower legs History of Wound: Patient is a 77 year old male who has multiple skin lesions scattered over his chest, arms, hands and abdomen and legs. The initial skin lesions started from a bed bugs which were causing him to scratch. He was hospitalized at the end of August for sepsis and cellulitis. He was discharged to [facility]. He has since been discharged home and has home health from [facility]. He does admit to picking at the scabbing. He has not been consistently putting anything on these areas. He is on Warfarin for history of PE, also has a history of HTN, CKD II, anemia, RAAD, bilateral leg edema and debility. He denies fever, chills, nausea, vomiting. Progress of Wound: Right anterior shoulder ulcer, upper mid to left chest cluster and right anterior/medial leg ulcer and left lateral/posterior leg ulcers are improved. He still has multiple scabbed areas on abdomen and bilateral legs. On his legs are lines of scabbing where he has scratched this area. He states he has been very itchy. His legs have +3 pitting edema with several fluid filled blisters on each leg. He has not been wearing compression. Bilateral pedal pulses +2 palpable. He states he has been tolerating the Doxycycline. Objective Data Objective Data Vital Signs: Vital Signs Temp Pulse Resp BP 97.5 F L 71 20 H 157/85 H 12/06/22 10:25 12/06/22 10:25 12/06/22 10:25 12/06/22 10:25 Weight: 300 lb Body Mass Index (BMI) 40.6 Charges/Coding Procedures Integumentary [id number]: [id number] Roxie subq tissue 20 sq cm/< Add On Codes: [id number] Roxie subq tissue add-on (x7) Debridement Note Debridement Note Wound debrided: (#5) upper chest cluster and (#10) Right anterior shoulder/chest Wound Grade/Stage: Stage II Type of Debridement: Excisional debridement Anesthesia Used: 4% Lidocaine Solution Depth: Down to and including healthy tissue and in the subcutaneous layer Percentage of wound debrided: 100 Instrument Used: 7mm curette Tissue Removed: Devitalized tissue and slough Severity: Limited To Skin Breakdown Amount of bleeding with debridement: Mild Bleeding Controlled with: Pressure and Compression and gauze Patient tolerated procedure: Patient tolerated procedure well Post-Debridement Measurements and Additional Note: Post-Debridement Measurements/Treatment WC - Nurse 1 - General Ulcer Assessment Start: 11/29/22 10:52 Freq: Status: Active Protocol: DORY Activity Type Activity Date Activity User E-sign Co-sign Detail Recorded Client Recorded Date Recorded By Document 11/29/22 10:52 DL [id number] 11/29/22 11:11 DL Document 12/06/22 10:25 DL [id number] 12/06/22 10:33 DL 11/29/22 12/06/22 10:52 10:25 WC - Today's Visit Information Type of service Follow-up Visit Follow-up Visit (Physician/CONFERENCE PLANNER (Physician/CONFERENCE PLANNER ) ) Arrival Mode Ambulatory,Cane Ambulatory,Cane Transfer Assistance None None Patient Identification Verified (Name & Yes Yes ) Patient Requires Transmission-Based No No Precautions Height and Weight Body Mass Index (BMI) 40.6 40.6 BMI Classification Obese Obese Vital Signs Temperature (97.8 F-99.1 F) 97.3 F L 97.5 F L Temperature Source Temporal Temporal Pulse Rate (60-100) 101 H 71 Pulse Location Monitor Monitor Respiratory Rate (12-18) 22 H 20 H Blood Pressure (90/60-120/80) 134/69 H 157/85 H Blood Pressure Mean (mm Hg) 90 109 Source Monitor Monitor History Since Last Visit- (Skip if this is Patient's initial visit) Have you changed medications since your No No last visit? Any new allergies or adverse reactions No No Had a fall/change in ADL's that may No No increase risk of falls Signs or symptoms of abuse and/or No No neglect since last visit Have you been in the hospital since your No No last visit? Has dressing in place as prescribed Yes Yes Has compression in place as prescribed N/A Yes Has offloadiing in place as prescribed N/A N/A Experienced any changes in pain level or Yes No management Pain Scale: 0-10 Numeric Is Patient Pain Free? Yes Yes SIMON - Nurse 1 - General Ulcer Measurement Start: 11/29/22 10:52 Freq: Status: Active Protocol: Activity Type Activity Date Activity User E-sign Co-sign Detail Recorded Client Recorded Date Recorded By Document 11/29/22 10:52 DL [id number] 11/29/22 11:11 DL Document 12/06/22 10:25 DL [id number] 12/06/22 10:33 DL 11/29/22 12/06/22 10:52 10:25 Wound Center Nurse 1 12-right lateral leg cluster -Current Size (cm) - Length 0.1 -Current Size (cm) - Width 0.1 -Current Size (cm) - Depth 0.1 -Total Square Cm 0.01 -Photo Taken No -Exudate Amt None Present -Wound Margin Indistinct, Non -Visible -Granulation Amt Large (67-100%) -Granulation Quality [place] -Necrosis Amt Small (1-33%) -Necrotic Tissue Type Adherent Slough -Structure Exposed N/A -Texture ([place]-wound Skin Appearance) Scarring -Moisture (Uyen-wound Skin Appearance) Dry/Scaly -Color ([place]yen-wound Skin Appearance) Hemosiderin Staining -Temperature ([place]-wound Skin No Abnormality Appearance) (Pt Warm) -Ulcer Cleansing Soap and Water -Foul Odor after Cleansing No #8 R acuña -Current Size (cm) - Length 0.1 -Current Size (cm) - Width 0.1 -Current Size (cm) - Depth 0.1 -Total Square Cm 0.01 -Photo Taken No -Exudate Amt None Present -Wound Margin Indistinct, Non -Visible -Granulation Amt Large (67-100%) -Granulation Quality [place] -Necrosis Amt None Present (0 %) -Texture (Uyen-wound Skin Appearance) Scarring -Moisture ([place]-wound Skin Appearance) Dry/Scaly -Color ([place]-wound Skin Appearance) Hemosiderin Staining -Temperature ([place]-wound Skin No Abnormality Appearance) (Pt Warm) -Tenderness on Palpation (Uy[place]-wound No Skin Appearance) -Ulcer Cleansing Soap and Water -Foul Odor after Cleansing No -Anesthetic Used 5% Lidocaine Gel #7 L hand -Current Size (cm) - Length 1.8 -Current Size (cm) - Width 0.5 -Current Size (cm) - Depth 1 -Total Square Cm 0.90 -Photo Taken No -Exudate Amt None Present -Wound Margin Indistinct, Non -Visible -Granulation Amt None Present (0 %) -Necrosis Amt Large (67-100%) -Necrotic Tissue Type Adherent Slough -Structure Exposed N/A -Texture (Uy[place]-wound Skin Appearance) Scarring -Moisture ([place]-wound Skin Appearance) Dry/Scaly -Color ([place]-wound Skin Appearance) No Abnormality -Temperature ([place]-wound Skin No Abnormality Appearance) (Pt Warm) -Tenderness on Palpation ([place]-wound No Skin Appearance) -Ulcer Cleansing Rinsed/ Irrigated with Saline -Foul Odor after Cleansing No -Anesthetic Used 5% Lidocaine Gel #6 R hand cluster -Current Size (cm) - Length 2.8 -Current Size (cm) - Width 5.2 -Current Size (cm) - Depth 0.1 -Total Square Cm 14.56 -Photo Taken No -Exudate Amt None Present -Wound Margin Indistinct, Non -Visible -Granulation Amt None Present (0 %) -Necrosis Amt Large (67-100%) -Necrotic Tissue Type Eschar -Structure Exposed N/A -Texture (Uyen-wound Skin Appearance) Scarring -Moisture (Uyen-wound Skin Appearance) Dry/Scaly -Color ([place]yen-wound Skin Appearance) No Abnormality -Temperature ([place]-wound Skin No Abnormality Appearance) (Pt Warm) -Tenderness on Palpation ([place]-wound No Skin Appearance) -Ulcer Cleansing Rinsed/ Irrigated with Saline -Foul Odor after Cleansing No -Anesthetic Used 5% Lidocaine Gel 11-right medial leg cluster -Current Size (cm) - Length 2.5 10.2 -Current Size (cm) - Width 1 2 -Current Size (cm) - Depth 0.1 0.1 -Total Square Cm 2.5 20.4 -Photo Taken No Yes -Exudate Amt None Present Small -Exudate Type Serosanguineous -Wound Margin Thickened Distinct, Outline Attached -Granulation Amt None Present (0 Large (67-100%) %) -Granulation Quality Red -Necrosis Amt Large (67-100%) None Present (0 %) -Necrotic Tissue Type Adherent Slough -Structure Exposed N/A N/A -Texture (Uyen-wound Skin Appearance) Scarring Scarring,Rash -Moisture (Uyen-wound Skin Appearance) Dry/Scaly Dry/Scaly -Color (Uyen-wound Skin Appearance) Hemosiderin No Abnormality Staining -Temperature ([place]-wound Skin No Abnormality No Abnormality Appearance) (Pt Warm) (Pt Warm) -Tenderness on Palpation (Uyen-wound No No Skin Appearance) -Ulcer Cleansing Rinsed/ Soap and Water Irrigated with Saline -Foul Odor after Cleansing No No -Anesthetic Used 5% Lidocaine 5% Lidocaine Gel Gel 10-RIGHT ANTERIOR SHOULDER -Current Size (cm) - Length 4 4 -Current Size (cm) - Width 5 5 -Current Size (cm) - Depth 0.1 0.1 -Total Square Cm 20 20 -Photo Taken No Yes -Exudate Amt Small Small -Exudate Type Serosanguineous -Wound Margin Distinct, Distinct, Outline Outline Attached Attached -Granulation Amt Large (67-100%) Large (67-100%) -Granulation Quality Hyper- Hyper- granulation,Red granulation,Red -Necrosis Amt Small (1-33%) None Present (0 %) -Necrotic Tissue Type Adherent Slough -Structure Exposed N/A N/A -Texture (Uyen-wound Skin Appearance) Scarring Scarring,Rash -Moisture (Uyen-wound Skin Appearance) Dry/Scaly Dry/Scaly -Color (Uyen-wound Skin Appearance) No Abnormality No Abnormality -Temperature (Uyen-wound Skin No Abnormality No Abnormality Appearance) (Pt Warm) (Pt Warm) -Tenderness on Palpation (Uyen-wound No No Skin Appearance) -Ulcer Cleansing Rinsed/ Soap and Water Irrigated with Saline -Foul Odor after Cleansing No No -Anesthetic Used 5% Lidocaine 5% Lidocaine Gel Gel #9 L post -Current Size (cm) - Length 3.5 0.1 -Current Size (cm) - Width 2 0.1 -Current Size (cm) - Depth 0.1 0.1 -Total Square Cm 7.0 0.01 -Photo Taken No No -Exudate Amt None Present None Present -Wound Margin Thickened Indistinct, Non -Visible -Granulation Amt Medium (34-66%) Large (67-100%) -Granulation Quality [place] -Necrosis Amt Medium (34-66%) None Present (0 %) -Necrotic Tissue Type Eschar -Structure Exposed N/A N/A -Texture (Uyen-wound Skin Appearance) Scarring Scarring,Rash -Moisture (Uyen-wound Skin Appearance) Dry/Scaly Dry/Scaly -Color (Uyen-wound Skin Appearance) Hemosiderin No Abnormality Staining -Temperature ([place]-wound Skin No Abnormality No Abnormality Appearance) (Pt Warm) (Pt Warm) -Tenderness on Palpation (Uyen-wound No No Skin Appearance) -Ulcer Cleansing Rinsed/ Soap and Water Irrigated with Saline -Foul Odor after Cleansing No No -Anesthetic Used 5% Lidocaine 5% Lidocaine Gel Gel #5 upper chest cluster -Current Size (cm) - Length 6 20 -Current Size (cm) - Width 15 7 -Current Size (cm) - Depth 0.1 0.1 -Total Square Cm 90 140 -Photo Taken No Yes -Exudate Amt None Present Small -Exudate Type Serosanguineous -Wound Margin Indistinct, Non Indistinct, Non -Visible -Visible -Granulation Amt None Present (0 Large (67-100%) %) -Granulation Quality [place] -Necrosis Amt Large (67-100%) None Present (0 %) -Necrotic Tissue Type Eschar -Structure Exposed N/A N/A -Texture (Uyen-wound Skin Appearance) Scarring Scarring,Rash -Moisture (Uyen-wound Skin Appearance) Dry/Scaly Dry/Scaly -Color (Uyen-wound Skin Appearance) No Abnormality No Abnormality -Temperature (Uy[place]-wound Skin No Abnormality No Abnormality Appearance) (Pt Warm) (Pt Warm) -Tenderness on Palpation (Uyen-wound No Skin Appearance) -Ulcer Cleansing Rinsed/ Soap and Water Irrigated with Saline -Foul Odor after Cleansing No No -Anesthetic Used 5% Lidocaine 5% Lidocaine Gel Gel Right Calf (cm) 53.5 Right Ankle (cm) 27 Left Calf (cm) 52 Left Ankle (cm) 28.2 WC - Nurse 2 - General Ulcer CM Notes Start: 11/29/22 10:52 Freq: Status: Active Protocol: Activity Type Activity Date Activity User E-sign Co-sign Detail Recorded Client Recorded Date Recorded By Document 11/29/22 11:18 [id number] 11/29/22 11:33 JF Document 12/06/22 10:51 DL [id number] 12/06/22 11:01 DL 11/29/22 12/06/22 11:18 10:51 Wound Center Nurse 2 12-right lateral leg cluster -Correct Patient No -Correct Side, Site, Position No -Correct Procedure No -Procedure Performed No -Post Debridement (cm) - Length 0 -Post Debridement (cm) - Width 0 -Post Debridement (cm) - Depth 0 -Total Square (Post) (cm) 0 -Area of Debridement (cm) - Length 0 -Area of Debridement (cm) - Width 0 -Total Square (Area) (cm) 0 -Wound/Ulcer Outcome Healed- Epithelialized #8 R acuña -Time 11:21 -Correct Patient No -Correct Side, Site, Position No -Correct Procedure No -Procedure Performed No -Post Debridement (cm) - Length 0 -Post Debridement (cm) - Width 0 -Post Debridement (cm) - Depth 0 -Total Square (Post) (cm) 0 -Area of Debridement (cm) - Length 0 -Area of Debridement (cm) - Width 0 -Total Square (Area) (cm) 0 -Wound/Ulcer Outcome Healed- Epithelialized #7 L hand -Correct Patient No -Correct Side, Site, Position No -Correct Procedure No -Procedure Performed No -Post Debridement (cm) - Length 0 -Post Debridement (cm) - Width 0 -Post Debridement (cm) - Depth 0 -Total Square (Post) (cm) 0 -Wound/Ulcer Outcome Healed- Epithelialized #6 R hand cluster -Time 11:22 -Correct Patient No -Correct Side, Site, Position No -Correct Procedure No -Procedure Performed No -Post Debridement (cm) - Length 0 -Post Debridement (cm) - Width 0 -Post Debridement (cm) - Depth 0 -Total Square (Post) (cm) 0 -Area of Debridement (cm) - Length 0 -Area of Debridement (cm) - Width 0 -Total Square (Area) (cm) 0 -Tunneling No -Undermining/Tunneling No -Circular Undermining No -Wound/Ulcer Outcome Healed- Epithelialized -Ulcer Cleansing Rinsed/ Irrigated with Saline -Foul Odor after Cleansing No -Bioengineered Tissue No -Bleeding Controlled with Pressure -Treatment Response Procedure Tolerated Well -Debridement - Subq, 1st 20sq cm No 11-right medial leg cluster -Time 11:19 10:57 -Correct Patient Yes Yes -Correct Side, Site, Position Yes Yes -Correct Procedure Yes Yes -Procedure Performed Yes Yes -Type of Procedure Debridement Debridement -Clinical Debridement Subcutaneous Subcutaneous -Tissue Removed Subcutaneous Subcutaneous -Post Debridement (cm) - Length 0.7 10.8 -Post Debridement (cm) - Width 1 3.5 -Post Debridement (cm) - Depth 0.1 0.1 -Total Square (Post) (cm) 0.7 37.80 -Area of Debridement (cm) - Length 0.7 10.8 -Area of Debridement (cm) - Width 1 3.5 -Total Square (Area) (cm) 0.7 37.80 -Tunneling No No -Undermining/Tunneling No No -Circular Undermining No No -Wound/Ulcer Outcome Not Healed Not Healed -Ulcer Cleansing Rinsed/ Rinsed/ Irrigated with Irrigated with Saline Saline -Foul Odor after Cleansing No No -Bioengineered Tissue No No -Bleeding Controlled with Pressure Pressure -Treatment Response Procedure Procedure Tolerated Well Tolerated Well -Offloading No No -Debridement - Subq, 1st 20sq cm Yes Yes -Debridement, SubQ, ea addt'l 20sq cm 7 7 or part thereof 10-RIGHT ANTERIOR SHOULDER -Time 11:21 10:52 -Correct Patient Yes Yes -Correct Side, Site, Position Yes Yes -Correct Procedure Yes Yes -Procedure Performed Yes Yes -Type of Procedure Debridement Debridement -Clinical Debridement Subcutaneous Subcutaneous -Tissue Removed Subcutaneous Subcutaneous -Post Debridement (cm) - Length 6.0 4.2 -Post Debridement (cm) - Width 3.8 5.2 -Post Debridement (cm) - Depth 0.1 0.1 -Total Square (Post) (cm) 22.80 21.84 -Area of Debridement (cm) - Length 6.0 4.2 -Area of Debridement (cm) - Width 3.8 5.2 -Total Square (Area) (cm) 22.80 21.84 -Tunneling No No -Undermining/Tunneling No No -Circular Undermining No No -Wound/Ulcer Outcome Not Healed Not Healed -Ulcer Cleansing Rinsed/ Wound Cleanser Irrigated with Saline -Foul Odor after Cleansing No No -Bioengineered Tissue No No -Bleeding Controlled with Pressure Pressure -Treatment Response Procedure Procedure Tolerated Well Tolerated Well -Offloading No No -Debridement - Subq, 1st 20sq cm No No #9 L post -Time 11:21 10:54 -Correct Patient Yes Yes -Correct Side, Site, Position Yes Yes -Correct Procedure Yes Yes -Procedure Performed Yes Yes -Type of Procedure Debridement Debridement -Clinical Debridement Subcutaneous Subcutaneous -Tissue Removed Subcutaneous Subcutaneous -Post Debridement (cm) - Length 1.2 1.8 -Post Debridement (cm) - Width 0.5 1.5 -Post Debridement (cm) - Depth 0.1 0.1 -Total Square (Post) (cm) 0.60 2.70 -Area of Debridement (cm) - Length 1.2 1.8 -Area of Debridement (cm) - Width 0.5 1.5 -Total Square (Area) (cm) 0.60 2.70 -Tunneling No No -Undermining/Tunneling No No -Circular Undermining No No -Wound/Ulcer Outcome Not Healed Not Healed -Ulcer Cleansing Rinsed/ Rinsed/ Irrigated with Irrigated with Saline Saline -Foul Odor after Cleansing No No -Bioengineered Tissue No No -Bleeding Controlled with Pressure Pressure -Treatment Response Procedure Procedure Tolerated Well Tolerated Well -Offloading No No -Debridement - Subq, 1st 20sq cm No No #5 upper chest cluster -Time 11:22 10:54 -Correct Patient Yes Yes -Correct Side, Site, Position Yes Yes -Correct Procedure Yes Yes -Procedure Performed Yes Yes -Type of Procedure Debridement Debridement -Clinical Debridement Subcutaneous Subcutaneous -Tissue Removed Subcutaneous Subcutaneous -Post Debridement (cm) - Length 6.0 5.5 -Post Debridement (cm) - Width 20 15.0 -Post Debridement (cm) - Depth 0.1 0.1 -Total Square (Post) (cm) 120.0 82.50 -Area of Debridement (cm) - Length 6.0 5.5 -Area of Debridement (cm) - Width 20.0 15.0 -Total Square (Area) (cm) 120.00 82.50 -Tunneling No No -Undermining/Tunneling No No -Circular Undermining No No -Wound/Ulcer Outcome Not Healed Not Healed -Ulcer Cleansing Rinsed/ Rinsed/ Irrigated with Irrigated with Saline Saline -Foul Odor after Cleansing No No -Bioengineered Tissue No No -Bleeding Controlled with Pressure Pressure -Treatment Response Procedure Procedure Tolerated Well Tolerated Well -Offloading No No -Debridement - Subq, 1st 20sq cm No No Pain Scale: 0-10 Numeric Is Patient Pain Free? Yes Yes WC - Nurse 3 - General Ulcer D/C NN Start: 11/29/22 10:52 Freq: Status: Active Protocol: Activity Type Activity Date Activity User E-sign Co-sign Detail Recorded Client Recorded Date Recorded By Document 11/29/22 12:22 DL [id number] 11/29/22 12:24 DL 11/29/22 12:22 Wound Care Center Nurse 3 11-right medial leg cluster -Ulcer Cleansing Rinsed/ Irrigated with Saline -Foul Odor after Cleansing No -Other Dressing bactroban -Primary Dressing Covered/Secured with Dry Gauze & Roll Gauze, Secured with Tape 10-RIGHT ANTERIOR SHOULDER -Ulcer Cleansing Rinsed/ Irrigated with Saline -Foul Odor after Cleansing No -Primary Dressing Applied Aquacel AG 4x4 -Primary Dressing Covered/Secured with Dry Gauze, Secured with Tape -Aquacel AG 4x4 1 #9 L post -Ulcer Cleansing Rinsed/ Irrigated with Saline -Foul Odor after Cleansing No -Other Dressing bactroban -Primary Dressing Covered/Secured with Dry Gauze & Roll Gauze, Secured with Tape #5 upper chest cluster -Ulcer Cleansing Rinsed/ Irrigated with Saline -Foul Odor after Cleansing No -Other Dressing aquacel ag -Primary Dressing Covered/Secured with Dry Gauze, Secured with Tape Left -Compression Wrap Norbert Wrap Right -Compression Wrap Norbert Wrap Treatment Response Procedure Tolerated Well Pain Scale: 0-10 Numeric Is Patient Pain Free? Yes WC - Visit Discharge Discharge Condition Stable Ambulatory Status Ambulatory,Cane Transportation [facility] Facility Type Home Health Orders Sent Yes Additional Wound Wound debrided: (#9) left posterior/lateral leg ulcer Laterality: Left Wound Grade/Stage: Stage II Anesthesia Used: 5% Lidocaine Gel Depth: Down to and including healthy tissue and in the subcutaneous layer Percentage of wound debrided: 100 Instrument Used: 5mm curette Tissue Removed: Devitalized tissue and slough Severity: Limited To Skin Breakdown Amount of bleeding with debridement: Mild Bleeding Controlled with: Pressure and Compression and gauze Patient tolerated procedure: Patient tolerated procedure well Additional Wound Wound debrided: (#8) R anterior leg cluster Laterality: Right Wound Grade/Stage: Stage II Type of Debridement: Excisional debridement Anesthesia Used: 5% Lidocaine Gel Depth: Down to and including healthy tissue and in the subcutaneous layer Percentage of wound debrided: 100 Instrument Used: 5mm curette Tissue Removed: Devitalized tissue and slough Severity: Limited To Skin Breakdown Amount of bleeding with debridement: Mild Bleeding Controlled with: Pressure and Compression and gauze Patient tolerated procedure: Patient tolerated procedure well Assessment/Plan Assessment/Plan (1) Ulcer of chest wall, limited to breakdown of skin: CODE(S): L98.491 - Non-pressure chronic ulcer of skin of other sites limited to breakdown of skin (2) Ulcer of left lower extremity, limited to breakdown of skin: CODE(S): L97.921 - Non-pressure chronic ulcer of unspecified part of left lower leg limited to breakdown of skin (3) Ulcer of right lower extremity, limited to breakdown of skin: CODE(S): L97.911 - Non-pressure chronic ulcer of unspecified part of right lower leg limited to breakdown of skin (4) Skin ulcer of hand, limited to breakdown of skin: CODE(S): L98.491 - Non-pressure chronic ulcer of skin of other sites limited to breakdown of skin (5) Age-related physical debility: CODE(S): R54 - Age-related physical debility (6) Edema of both legs: CODE(S): R60.0 - Localized edema (7) Skin-picking disorder: CODE(S): F42.4 - Excoriation (skin-picking) disorder PLAN: Plan Patient evaluated at the wound healing center today. Wound care to the upper chest/anterior shoulder ulcers place moistened Aquacel- Ag, cover with adaptic and cover with gauze daily. On right and left leg ulcers place Aquacel-Ag covered by ABD/super absorber and place Unna boots on bilateral lower legs. A wound culture was obtained on 11/14/22 of the upper chest/anterior shoulder ulcers which was positive for Staphylococcus aureus, Kocuria kristinae and Gram positive faraz. He is tolerating the Doxycycline well. He has [facility] to help with the wound care. Stressed importance of not picking at these ulcers. He complains of itching. Will start him on Vistaril 25 mg TID PRN for itching. Instructed patient that it may make him tired. He is not to drive while taking it. If it causes any issues including confusion, he is to stop it immediately. Both he and his sridevi grimes verbalized understanding. Encouraged him to cut his finger nails short and wear socks to bed to help prevent him from scratching. Will refer him to Dermatology for further evaluation of these multiple black scabs. Follow up one week.
[2022-12-11 10:36] VITALS: BP 159/89; PULSE 85; RESP 21; TEMP 35.8; BMI 40.6
[2022-12-13 11:47] VITALS: BP 134/80; PULSE 86; RESP 20; TEMP 36.3; BMI 40.6
--- NOTE | 2022-12-13 12:42 | PCM.WC.PN ---
History of Present Illness Date of Service: 12/13/22 Chief Complaint: Superficial ulcers to bilateral lower legs History of Wound: Patient is a 77 year old male who has multiple skin lesions scattered over his chest, arms, hands and abdomen and legs. The initial skin lesions started from a bed bugs which were causing him to scratch. He was hospitalized at the end of August for sepsis and cellulitis. He was discharged to [facility]. He has since been discharged home and has home health from [facility]. He does admit to picking at the scabbing. He has not been consistently putting anything on these areas. He is on Warfarin for history of PE, also has a history of HTN, CKD II, anemia, RAAD, bilateral leg edema and debility. He denies fever, chills, nausea, vomiting. Progress of Wound: Right anterior shoulder ulcer, upper mid to left chest cluster and right anterior/medial leg ulcer and left lateral/posterior leg ulcers are improved. His edema and skin on his legs has improved with wearing the Unna boots. Objective Data Objective Data Vital Signs: Vital Signs Temp Pulse Resp BP 97.4 F L 86 20 H 134/80 H 12/13/22 11:47 12/13/22 11:47 12/13/22 11:47 12/13/22 11:47 Weight: 300 lb Body Mass Index (BMI) 40.6 Charges/Coding Procedures Integumentary [id number]: [id number] Roxie subq tissue 20 sq cm/< Add On Codes: [id number] Roxie subq tissue add-on (x2) Debridement Note Debridement Note Wound debrided: (#5) upper chest cluster and (#10) Right anterior shoulder/chest Wound Grade/Stage: Stage II Type of Debridement: Excisional debridement Anesthesia Used: 4% Lidocaine Solution Depth: Down to and including healthy tissue and in the subcutaneous layer Percentage of wound debrided: 100 Instrument Used: 5mm curette Tissue Removed: Devitalized tissue and slough Severity: Limited To Skin Breakdown Amount of bleeding with debridement: Mild Bleeding Controlled with: Pressure and Compression and gauze Patient tolerated procedure: Patient tolerated procedure well Post-Debridement Measurements and Additional Note: Post-Debridement Measurements/Treatment SIMON - Nurse 1 - General Ulcer Assessment Start: 11/29/22 10:52 Freq: Status: Active Protocol: DORY Activity Type Activity Date Activity User E-sign Co-sign Detail Recorded Client Recorded Date Recorded By Document 11/29/22 10:52 DL [id number] 11/29/22 11:11 DL Document 12/06/22 10:25 DL [id number] 12/06/22 10:33 DL Document 12/11/22 10:36 ML [id number] 12/11/22 10:37 ML Document 12/13/22 11:47 DL [id number] 12/13/22 12:00 DL 11/29/22 12/06/22 12/11/22 10:52 10:25 10:36 WC - Today's Visit Information Type of service Follow-up Visit Follow-up Visit Nurse-only (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/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 (Physician/POWER SCREWDRIVER OPERATOR Visit ) ) Arrival Mode Ambulatory,Cane Ambulatory,Cane Cane Transfer Assistance None None None Patient Identification Verified (Name & Yes Yes Yes ) Patient Requires Transmission-Based No No No Precautions Safety Precautions NA Height and Weight Body Mass Index (BMI) 40.6 40.6 40.6 BMI Classification Obese Obese Obese Vital Signs Temperature (97.8 F-99.1 F) 97.3 F L 97.5 F L 96.5 F L Temperature Source Temporal Temporal Temporal Pulse Rate (60-100) 101 H 71 85 Pulse Location Monitor Monitor Monitor Respiratory Rate (12-18) 22 H 20 H 21 H Respiratory rate source Observation Blood Pressure (90/60-120/80) 134/69 H 157/85 H 159/89 H Blood Pressure Mean (mm Hg) 90 109 112 Source Monitor Monitor Manual Position Sitting Blood Pressure Location Right Arm History Since Last Visit- (Skip if this is Patient's initial visit) Have you changed medications since your No No No last visit? Any new allergies or adverse reactions No No No Had a fall/change in ADL's that may No No No increase risk of falls Signs or symptoms of abuse and/or No No No neglect since last visit Have you been in the hospital since your No No No last visit? Has dressing in place as prescribed Yes Yes Yes Has compression in place as prescribed N/A Yes Has offloadiing in place as prescribed N/A N/A N/A Experienced any changes in pain level or Yes No No management Left Footwear Regular Shoe Right Footwear Regular Shoe Pain Scale: 0-10 Numeric Is Patient Pain Free? Yes Yes Yes 12/13/22 11:47 WC - Today's Visit Information Type of service Follow-up Visit (Physician/POWER SCREWDRIVER OPERATOR ) Arrival Mode Ambulatory Transfer Assistance None Patient Identification Verified (Name & Yes ) Patient Requires Transmission-Based No Precautions Safety Precautions Height and Weight Body Mass Index (BMI) 40.6 BMI Classification Obese Vital Signs Temperature (97.8 F-99.1 F) 97.4 F L Temperature Source Temporal Pulse Rate (60-100) 86 Pulse Location Monitor Respiratory Rate (12-18) 20 H Respiratory rate source Observation Blood Pressure (90/60-120/80) 134/80 H Blood Pressure Mean (mm Hg) 98 Source Monitor Position Blood Pressure Location History Since Last Visit- (Skip if this is Patient's initial visit) Have you changed medications since your No last visit? Any new allergies or adverse reactions No Had a fall/change in ADL's that may No increase risk of falls Signs or symptoms of abuse and/or No neglect since last visit Have you been in the hospital since your No last visit? Has dressing in place as prescribed Yes Has compression in place as prescribed Yes Has offloadiing in place as prescribed N/A Experienced any changes in pain level or No management Left Footwear Right Footwear Pain Scale: 0-10 Numeric Is Patient Pain Free? Yes WC - Nurse 1 - General Ulcer Measurement Start: 11/29/22 10:52 Freq: Status: Active Protocol: Activity Type Activity Date Activity User E-sign Co-sign Detail Recorded Client Recorded Date Recorded By Document 11/29/22 10:52 DL [id number] 11/29/22 11:11 DL Document 12/06/22 10:25 DL [id number] 12/06/22 10:33 DL Document 12/13/22 11:47 DL [id number] 12/13/22 12:00 DL 11/29/22 12/06/22 12/13/22 10:52 10:25 11:47 Wound Center Nurse 1 12-right lateral leg cluster -Current Size (cm) - Length 0.1 -Current Size (cm) - Width 0.1 -Current Size (cm) - Depth 0.1 -Total Square Cm 0.01 -Photo Taken No -Exudate Amt None Present -Wound Margin Indistinct, Non -Visible -Granulation Amt Large (67-100%) -Granulation Quality Saks -Necrosis Amt Small (1-33%) -Necrotic Tissue Type Adherent Slough -Structure Exposed N/A -Texture (Uyen-wound Skin Appearance) Scarring -Moisture (Uyen-wound Skin Appearance) Dry/Scaly -Color (Uyen-wound Skin Appearance) Hemosiderin Staining -Temperature (Uyen-wound Skin No Abnormality Appearance) (Pt Warm) -Ulcer Cleansing Soap and Water -Foul Odor after Cleansing No #8 R acuña -Current Size (cm) - Length 0.1 -Current Size (cm) - Width 0.1 -Current Size (cm) - Depth 0.1 -Total Square Cm 0.01 -Photo Taken No -Exudate Amt None Present -Wound Margin Indistinct, Non -Visible -Granulation Amt Large (67-100%) -Granulation Quality Saks -Necrosis Amt None Present (0 %) -Texture (Uyen-wound Skin Appearance) Scarring -Moisture (Uyen-wound Skin Appearance) Dry/Scaly -Color (Uyen-wound Skin Appearance) Hemosiderin Staining -Temperature (Uyen-wound Skin No Abnormality Appearance) (Pt Warm) -Tenderness on Palpation (Uyen-wound No Skin Appearance) -Ulcer Cleansing Soap and Water -Foul Odor after Cleansing No -Anesthetic Used 5% Lidocaine Gel #7 L hand -Current Size (cm) - Length 1.8 -Current Size (cm) - Width 0.5 -Current Size (cm) - Depth 1 -Total Square Cm 0.90 -Photo Taken No -Exudate Amt None Present -Wound Margin Indistinct, Non -Visible -Granulation Amt None Present (0 %) -Necrosis Amt Large (67-100%) -Necrotic Tissue Type Adherent Slough -Structure Exposed N/A -Texture (Uyen-wound Skin Appearance) Scarring -Moisture (Uyen-wound Skin Appearance) Dry/Scaly -Color (Uyen-wound Skin Appearance) No Abnormality -Temperature (Uyen-wound Skin No Abnormality Appearance) (Pt Warm) -Tenderness on Palpation (Uyen-wound No Skin Appearance) -Ulcer Cleansing Rinsed/ Irrigated with Saline -Foul Odor after Cleansing No -Anesthetic Used 5% Lidocaine Gel #6 R hand cluster -Current Size (cm) - Length 2.8 -Current Size (cm) - Width 5.2 -Current Size (cm) - Depth 0.1 -Total Square Cm 14.56 -Photo Taken No -Exudate Amt None Present -Wound Margin Indistinct, Non -Visible -Granulation Amt None Present (0 %) -Necrosis Amt Large (67-100%) -Necrotic Tissue Type Eschar -Structure Exposed N/A -Texture (Uyen-wound Skin Appearance) Scarring -Moisture (Uyen-wound Skin Appearance) Dry/Scaly -Color (Uyen-wound Skin Appearance) No Abnormality -Temperature (Uyen-wound Skin No Abnormality Appearance) (Pt Warm) -Tenderness on Palpation (Uyen-wound No Skin Appearance) -Ulcer Cleansing Rinsed/ Irrigated with Saline -Foul Odor after Cleansing No -Anesthetic Used 5% Lidocaine Gel 11-right medial leg cluster -Current Size (cm) - Length 2.5 10.2 0.1 -Current Size (cm) - Width 1 2 0.1 -Current Size (cm) - Depth 0.1 0.1 0.1 -Total Square Cm 2.5 20.4 0.01 -Photo Taken No Yes -Exudate Amt None Present Small Small -Exudate Type Serosanguineous Serosanguineous -Wound Margin Thickened Distinct, Distinct, Outline Outline Attached Attached -Granulation Amt None Present (0 Large (67-100%) None Present (0 %) %) -Granulation Quality Red -Slough/Fibrin Yes -Necrosis Amt Large (67-100%) None Present (0 None Present (0 %) %) -Necrotic Tissue Type Adherent Slough -Structure Exposed N/A N/A -Texture (Uyen-wound Skin Appearance) Scarring Scarring,Rash Assessed -Moisture (Uyen-wound Skin Appearance) Dry/Scaly Dry/Scaly Assessed -Color (Uyen-wound Skin Appearance) Hemosiderin No Abnormality Assessed Staining -Temperature (Uyen-wound Skin No Abnormality No Abnormality No Abnormality Appearance) (Pt Warm) (Pt Warm) (Pt Warm) -Tenderness on Palpation (Uyen-wound No No No Skin Appearance) -Ulcer Cleansing Rinsed/ Soap and Water Soap and Water Irrigated with Saline -Foul Odor after Cleansing No No No -Anesthetic Used 5% Lidocaine 5% Lidocaine 4% Lidocaine Gel Gel Solution 10-RIGHT ANTERIOR SHOULDER -Current Size (cm) - Length 4 4 4 -Current Size (cm) - Width 5 5 4.5 -Current Size (cm) - Depth 0.1 0.1 0.1 -Total Square Cm 20 20 18.0 -Photo Taken No Yes -Exudate Amt Small Small Medium -Exudate Type Serosanguineous Serosanguineous -Wound Margin Distinct, Distinct, Distinct, Outline Outline Outline Attached Attached Attached -Granulation Amt Large (67-100%) Large (67-100%) -Granulation Quality Hyper- Hyper- Hyper- granulation,Red granulation,Red granulation,Red -Necrosis Amt Small (1-33%) None Present (0 None Present (0 %) %) -Necrotic Tissue Type Adherent Slough Adherent Slough -Structure Exposed N/A N/A -Texture (Uyen-wound Skin Appearance) Scarring Scarring,Rash Assessed -Moisture (Uyen-wound Skin Appearance) Dry/Scaly Dry/Scaly Assessed -Color (Uyen-wound Skin Appearance) No Abnormality No Abnormality Assessed -Temperature (Uyen-wound Skin No Abnormality No Abnormality No Abnormality Appearance) (Pt Warm) (Pt Warm) (Pt Warm) -Tenderness on Palpation (Uyen-wound No No No Skin Appearance) -Ulcer Cleansing Rinsed/ Soap and Water Soap and Water Irrigated with Saline -Foul Odor after Cleansing No No No -Anesthetic Used 5% Lidocaine 5% Lidocaine 4% Lidocaine Gel Gel Solution #9 L post -Combined with (Name of Wound-Exactly 0.1 as it is documented) -Current Size (cm) - Length 3.5 0.1 0.1 -Current Size (cm) - Width 2 0.1 0.1 -Current Size (cm) - Depth 0.1 0.1 -Total Square Cm 7.0 0.01 0.01 -Photo Taken No No -Exudate Amt None Present None Present None Present -Wound Margin Thickened Indistinct, Non Distinct, -Visible Outline Attached -Granulation Amt Medium (34-66%) Large (67-100%) None Present (0 %) -Granulation Quality Saks Saks -Slough/Fibrin No -Necrosis Amt Medium (34-66%) None Present (0 None Present (0 %) %) -Necrotic Tissue Type Eschar -Structure Exposed N/A N/A -Texture (Uyen-wound Skin Appearance) Scarring Scarring,Rash Assessed -Moisture (Uyen-wound Skin Appearance) Dry/Scaly Dry/Scaly Assessed -Color (Uyen-wound Skin Appearance) Hemosiderin No Abnormality Assessed Staining -Temperature (Uyen-wound Skin No Abnormality No Abnormality No Abnormality Appearance) (Pt Warm) (Pt Warm) (Pt Warm) -Tenderness on Palpation (Uyen-wound No No No Skin Appearance) -Ulcer Cleansing Rinsed/ Soap and Water Soap and Water Irrigated with Saline -Foul Odor after Cleansing No No No -Anesthetic Used 5% Lidocaine 5% Lidocaine 4% Lidocaine Gel Gel Solution #5 upper chest cluster -Current Size (cm) - Length 6 20 16.2 -Current Size (cm) - Width 15 7 3.8 -Current Size (cm) - Depth 0.1 0.1 0.1 -Total Square Cm 90 140 61.56 -Photo Taken No Yes -Exudate Amt None Present Small Large -Exudate Type Serosanguineous Serosanguineous -Wound Margin Indistinct, Non Indistinct, Non Distinct, -Visible -Visible Outline Attached -Granulation Amt None Present (0 Large (67-100%) %) -Granulation Quality Saks -Slough/Fibrin Yes -Necrosis Amt Large (67-100%) None Present (0 None Present (0 %) %) -Necrotic Tissue Type Eschar Adherent Slough -Structure Exposed N/A N/A -Texture (Uyen-wound Skin Appearance) Scarring Scarring,Rash Assessed -Moisture (Uyen-wound Skin Appearance) Dry/Scaly Dry/Scaly Assessed -Color (Uyen-wound Skin Appearance) No Abnormality No Abnormality No Abnormality -Temperature (Uyen-wound Skin No Abnormality No Abnormality No Abnormality Appearance) (Pt Warm) (Pt Warm) (Pt Warm) -Tenderness on Palpation (Uyen-wound No No Skin Appearance) -Ulcer Cleansing Rinsed/ Soap and Water Soap and Water Irrigated with Saline -Foul Odor after Cleansing No No No -Anesthetic Used 5% Lidocaine 5% Lidocaine 4% Lidocaine Gel Gel Solution Right Calf (cm) 53.5 51 Right Ankle (cm) 27 27 Left Calf (cm) 52 48.5 Left Ankle (cm) 28.2 26.7 WC - Nurse 2 - General Ulcer CM Notes Start: 11/29/22 10:52 Freq: Status: Active Protocol: Activity Type Activity Date Activity User E-sign Co-sign Detail Recorded Client Recorded Date Recorded By Document 11/29/22 11:18 JF [id number] 11/29/22 11:33 JF Document 12/06/22 10:51 DL [id number] 12/06/22 11:01 DL Document 12/13/22 12:08 JF [id number] 12/13/22 12:18 JF 11/29/22 12/06/22 12/13/22 11:18 10:51 12:08 Wound Center Nurse 2 12-right lateral leg cluster -Correct Patient No -Correct Side, Site, Position No -Correct Procedure No -Procedure Performed No -Post Debridement (cm) - Length 0 -Post Debridement (cm) - Width 0 -Post Debridement (cm) - Depth 0 -Total Square (Post) (cm) 0 -Area of Debridement (cm) - Length 0 -Area of Debridement (cm) - Width 0 -Total Square (Area) (cm) 0 -Wound/Ulcer Outcome Healed- Epithelialized #8 R acuña -Time 11:21 -Correct Patient No -Correct Side, Site, Position No -Correct Procedure No -Procedure Performed No -Post Debridement (cm) - Length 0 -Post Debridement (cm) - Width 0 -Post Debridement (cm) - Depth 0 -Total Square (Post) (cm) 0 -Area of Debridement (cm) - Length 0 -Area of Debridement (cm) - Width 0 -Total Square (Area) (cm) 0 -Wound/Ulcer Outcome Healed- Epithelialized #7 L hand -Correct Patient No -Correct Side, Site, Position No -Correct Procedure No -Procedure Performed No -Post Debridement (cm) - Length 0 -Post Debridement (cm) - Width 0 -Post Debridement (cm) - Depth 0 -Total Square (Post) (cm) 0 -Wound/Ulcer Outcome Healed- Epithelialized #6 R hand cluster -Time 11:22 -Correct Patient No -Correct Side, Site, Position No -Correct Procedure No -Procedure Performed No -Post Debridement (cm) - Length 0 -Post Debridement (cm) - Width 0 -Post Debridement (cm) - Depth 0 -Total Square (Post) (cm) 0 -Area of Debridement (cm) - Length 0 -Area of Debridement (cm) - Width 0 -Total Square (Area) (cm) 0 -Tunneling No -Undermining/Tunneling No -Circular Undermining No -Wound/Ulcer Outcome Healed- Epithelialized -Ulcer Cleansing Rinsed/ Irrigated with Saline -Foul Odor after Cleansing No -Bioengineered Tissue No -Bleeding Controlled with Pressure -Treatment Response Procedure Tolerated Well -Debridement - Subq, 1st 20sq cm No 11-right medial leg cluster -Time 11:19 10:57 12:15 -Correct Patient Yes Yes Yes -Correct Side, Site, Position Yes Yes Yes -Correct Procedure Yes Yes Yes -Procedure Performed Yes Yes Yes -Type of Procedure Debridement Debridement Debridement -Clinical Debridement Subcutaneous Subcutaneous Subcutaneous -Tissue Removed Subcutaneous Subcutaneous Subcutaneous -Post Debridement (cm) - Length 0.7 10.8 1.0 -Post Debridement (cm) - Width 1 3.5 1.0 -Post Debridement (cm) - Depth 0.1 0.1 0.1 -Total Square (Post) (cm) 0.7 37.80 1.00 -Area of Debridement (cm) - Length 0.7 10.8 1.0 -Area of Debridement (cm) - Width 1 3.5 1.0 -Total Square (Area) (cm) 0.7 37.80 1.00 -Tunneling No No No -Undermining/Tunneling No No No -Circular Undermining No No No -Wound/Ulcer Outcome Not Healed Not Healed Not Healed -Ulcer Cleansing Rinsed/ Rinsed/ Rinsed/ Irrigated with Irrigated with Irrigated with Saline Saline Saline -Foul Odor after Cleansing No No No -Bioengineered Tissue No No No -Bleeding Controlled with Pressure Pressure Pressure -Treatment Response Procedure Procedure Procedure Tolerated Well Tolerated Well Tolerated Well -Offloading No No No -Debridement - Subq, 1st 20sq cm Yes Yes No -Debridement, SubQ, ea addt'l 20sq cm 7 7 or part thereof 10-RIGHT ANTERIOR SHOULDER -Time 11:21 10:52 12:08 -Correct Patient Yes Yes Yes -Correct Side, Site, Position Yes Yes Yes -Correct Procedure Yes Yes Yes -Procedure Performed Yes Yes Yes -Type of Procedure Debridement Debridement Debridement -Clinical Debridement Subcutaneous Subcutaneous Subcutaneous -Tissue Removed Subcutaneous Subcutaneous Subcutaneous -Post Debridement (cm) - Length 6.0 4.2 4.3 -Post Debridement (cm) - Width 3.8 5.2 5 -Post Debridement (cm) - Depth 0.1 0.1 0.1 -Total Square (Post) (cm) 22.80 21.84 21.5 -Area of Debridement (cm) - Length 6.0 4.2 4.3 -Area of Debridement (cm) - Width 3.8 5.2 5 -Total Square (Area) (cm) 22.80 21.84 21.5 -Tunneling No No No -Undermining/Tunneling No No No -Circular Undermining No No No -Wound/Ulcer Outcome Not Healed Not Healed Not Healed -Ulcer Cleansing Rinsed/ Wound Cleanser Rinsed/ Irrigated with Irrigated with Saline Saline -Foul Odor after Cleansing No No No -Bioengineered Tissue No No No -Bleeding Controlled with Pressure Pressure Pressure -Treatment Response Procedure Procedure Procedure Tolerated Well Tolerated Well Tolerated Well -Offloading No No No -Debridement - Subq, 1st 20sq cm No No Yes -Debridement, SubQ, ea addt'l 20sq cm 2 or part thereof #9 L post -Time 11: 10:54 12:16 -Correct Patient Yes Yes Yes -Correct Side, Site, Position Yes Yes Yes -Correct Procedure Yes Yes Yes -Procedure Performed Yes Yes Yes -Type of Procedure Debridement Debridement Debridement -Clinical Debridement Subcutaneous Subcutaneous Subcutaneous -Tissue Removed Subcutaneous Subcutaneous Subcutaneous -Post Debridement (cm) - Length 1.2 1.8 0.5 -Post Debridement (cm) - Width 0.5 1.5 0.5 -Post Debridement (cm) - Depth 0.1 0.1 0.1 -Total Square (Post) (cm) 0.60 2.70 0.25 -Area of Debridement (cm) - Length 1.2 1.8 0.5 -Area of Debridement (cm) - Width 0.5 1.5 0.5 -Total Square (Area) (cm) 0.60 2.70 0.25 -Tunneling No No No -Undermining/Tunneling No No No -Circular Undermining No No No -Wound/Ulcer Outcome Not Healed Not Healed Not Healed -Ulcer Cleansing Rinsed/ Rinsed/ Rinsed/ Irrigated with Irrigated with Irrigated with Saline Saline Saline -Foul Odor after Cleansing No No No -Bioengineered Tissue No No No -Bleeding Controlled with Pressure Pressure Pressure -Treatment Response Procedure Procedure Procedure Tolerated Well Tolerated Well Tolerated Well -Offloading No No No -Debridement - Subq, 1st 20sq cm No No No #5 upper chest cluster -Time 11: 10:54 12:09 -Correct Patient Yes Yes Yes -Correct Side, Site, Position Yes Yes Yes -Correct Procedure Yes Yes Yes -Procedure Performed Yes Yes Yes -Type of Procedure Debridement Debridement Debridement -Clinical Debridement Subcutaneous Subcutaneous Subcutaneous -Tissue Removed Subcutaneous Subcutaneous Subcutaneous -Post Debridement (cm) - Length 6.0 5.5 3.0 -Post Debridement (cm) - Width 20 15.0 12 -Post Debridement (cm) - Depth 0.1 0.1 0.1 -Total Square (Post) (cm) 120.0 82.50 36.0 -Area of Debridement (cm) - Length 6.0 5.5 3.0 -Area of Debridement (cm) - Width 20.0 15.0 12 -Total Square (Area) (cm) 120.00 82.50 36.0 -Tunneling No No No -Undermining/Tunneling No No No -Circular Undermining No No No -Wound/Ulcer Outcome Not Healed Not Healed Not Healed -Ulcer Cleansing Rinsed/ Rinsed/ Rinsed/ Irrigated with Irrigated with Irrigated with Saline Saline Saline -Foul Odor after Cleansing No No No -Bioengineered Tissue No No No -Bleeding Controlled with Pressure Pressure Pressure -Treatment Response Procedure Procedure Procedure Tolerated Well Tolerated Well Tolerated Well -Offloading No No No -Debridement - Subq, 1st 20sq cm No No No Pain Scale: 0-10 Numeric Is Patient Pain Free? Yes Yes Yes WC - Nurse 3 - General Ulcer D/C NN Start: 11/29/22 10:52 Freq: Status: Active Protocol: Activity Type Activity Date Activity User E-sign Co-sign Detail Recorded Client Recorded Date Recorded By Document 11/29/22 12:22 DL [id number] 11/29/22 12:24 DL Document 12/06/22 11:20 DL [id number] 12/06/22 11:22 DL Document 12/11/22 10:36 ML [id number] 12/11/22 10:37 ML Document 12/13/22 12:25 DL [id number] 12/13/22 12:30 DL 11/29/22 12/06/22 12/11/22 12:22 11:20 10:36 Wound Care Center Nurse 3 11-right medial leg cluster -Ulcer Cleansing Rinsed/ Rinsed/ Irrigated with Irrigated with Saline Saline -Foul Odor after Cleansing No -Primary Dressing Applied Aquacel AG 4x4 -Other Dressing bactroban -Primary Dressing Covered/Secured with Dry Gauze & Roll Gauze, Secured with Tape -Aquacel AG 4x4 2 10-RIGHT ANTERIOR SHOULDER -Ulcer Cleansing Rinsed/ Rinsed/ Irrigated with Irrigated with Saline Saline -Foul Odor after Cleansing No -Primary Dressing Applied Aquacel AG 4x4 -Other Dressing aquacel ag -Primary Dressing Covered/Secured with Dry Gauze, Dry Gauze, Secured with Secured with Tape Tape -Aquacel AG 4x4 1 #9 L post -Ulcer Cleansing Rinsed/ Rinsed/ Irrigated with Irrigated with Saline Saline -Foul Odor after Cleansing No -Other Dressing bactroban aquacel ag -Primary Dressing Covered/Secured with Dry Gauze & Dry Gauze Roll Gauze, Secured with Tape #5 upper chest cluster -Ulcer Cleansing Rinsed/ Rinsed/ Irrigated with Irrigated with Saline Saline -Foul Odor after Cleansing No -Primary Dressing Applied -Other Dressing aquacel ag aquavel ag -Primary Dressing Covered/Secured with Dry Gauze, Dry Gauze, Secured with Secured with Tape Tape bilateral -Multi-Layered Wrap Application Unna Boot - Unna Boot - Bilateral ($) Bilateral ($) -Unna Boots (Bilat) ($) 2 2 Left -Compression Wrap Norbert Wrap Right -Compression Wrap Norbert Wrap Treatment Response Procedure Procedure Tolerated Well Tolerated Well Vital Signs Temperature (97.8 F-99.1 F) 96.5 F L Temperature Source Temporal Pulse Rate (60-100) 85 Pulse Location Monitor Respiratory Rate (12-18) 21 H Respiratory rate source Observation Blood Pressure (90/60-120/80) 159/89 H Blood Pressure Mean (mm Hg) 112 Source Manual Position Sitting Blood Pressure Location Right Arm Pain Scale: 0-10 Numeric Is Patient Pain Free? Yes Yes Yes WC - Visit Discharge Discharge Condition Stable Stable Ambulatory Status Ambulatory,Cane Ambulatory,Cane Transportation Private Auto Private Auto Medication Reconcilliation completed & No provided to patient/care provider Clinical Summary of Care Provided Yes Facility Type Home Health Orders Sent Yes 12/13/22 12:25 Wound Care Center Nurse 3 11-right medial leg cluster -Ulcer Cleansing Soap and Water -Foul Odor after Cleansing No -Primary Dressing Applied Aquacel AG 4x4 -Other Dressing unna -Primary Dressing Covered/Secured with -Aquacel AG 4x4 1 10-RIGHT ANTERIOR SHOULDER -Ulcer Cleansing Rinsed/ Irrigated with Saline -Foul Odor after Cleansing No -Primary Dressing Applied NonAdherent Contact Layer -Other Dressing hydrogel -Primary Dressing Covered/Secured with Dry Gauze, Secured with Tape -Aquacel AG 4x4 #9 L post -Ulcer Cleansing Soap and Water -Foul Odor after Cleansing No -Other Dressing aquacel ag/ unna -Primary Dressing Covered/Secured with #5 upper chest cluster -Ulcer Cleansing Rinsed/ Irrigated with Saline -Foul Odor after Cleansing No -Primary Dressing Applied NonAdherent Contact Layer -Other Dressing hydrogel -Primary Dressing Covered/Secured with Dry Gauze, Secured with Tape bilateral -Multi-Layered Wrap Application Unna Boot - Bilateral ($) -Unna Boots (Bilat) ($) 2 Left -Compression Wrap Right -Compression Wrap Treatment Response Procedure Tolerated Well Vital Signs Temperature (97.8 F-99.1 F) Temperature Source Pulse Rate (60-100) Pulse Location Respiratory Rate (12-18) Respiratory rate source Blood Pressure (90/60-120/80) Blood Pressure Mean (mm Hg) Source Position Blood Pressure Location Pain Scale: 0-10 Numeric Is Patient Pain Free? Yes WC - Visit Discharge Discharge Condition Stable Ambulatory Status Ambulatory Transportation Private Auto Medication Reconcilliation completed & provided to patient/care provider Clinical Summary of Care Provided Facility Type Home Health Orders Sent Yes Additional Wound Wound debrided: (#9) left posterior/lateral leg ulcer Laterality: Left Wound Grade/Stage: Stage II Anesthesia Used: 5% Lidocaine Gel Depth: Down to and including healthy tissue and in the subcutaneous layer Percentage of wound debrided: 100 Instrument Used: 5mm curette Tissue Removed: Devitalized tissue and slough Severity: Limited To Skin Breakdown Amount of bleeding with debridement: Mild Bleeding Controlled with: Pressure and Compression and gauze Patient tolerated procedure: Patient tolerated procedure well Additional Wound Wound debrided: (#8) R anterior/medial leg cluster Laterality: Right Wound Grade/Stage: Stage II Type of Debridement: Excisional debridement Anesthesia Used: 5% Lidocaine Gel Depth: Down to and including healthy tissue and in the subcutaneous layer Percentage of wound debrided: 100 Instrument Used: 5mm curette Tissue Removed: Devitalized tissue and slough Severity: Limited To Skin Breakdown Amount of bleeding with debridement: Mild Bleeding Controlled with: Pressure and Compression and gauze Patient tolerated procedure: Patient tolerated procedure well Assessment/Plan Assessment/Plan (1) Ulcer of chest wall, limited to breakdown of skin: CODE(S): L98.491 - Non-pressure chronic ulcer of skin of other sites limited to breakdown of skin (2) Ulcer of left lower extremity, limited to breakdown of skin: CODE(S): L97.921 - Non-pressure chronic ulcer of unspecified part of left lower leg limited to breakdown of skin (3) Ulcer of right lower extremity, limited to breakdown of skin: CODE(S): L97.911 - Non-pressure chronic ulcer of unspecified part of right lower leg limited to breakdown of skin (4) Skin ulcer of hand, limited to breakdown of skin: CODE(S): L98.491 - Non-pressure chronic ulcer of skin of other sites limited to breakdown of skin (5) Age-related physical debility: CODE(S): R54 - Age-related physical debility (6) Edema of both legs: CODE(S): R60.0 - Localized edema (7) Skin-picking disorder: CODE(S): F42.4 - Excoriation (skin-picking) disorder PLAN: Plan Patient evaluated at the wound healing center today. Wound care to the upper chest/anterior shoulder ulcers place moistened Collagen hydrogel, cover with adaptic and cover with gauze daily. On right and left leg ulcers place Aquacel-Ag covered by ABD/super absorber and place Unna boots on bilateral lower legs. A wound culture was obtained on 11/14/22 of the upper chest/anterior shoulder ulcers which was positive for Staphylococcus aureus, Kocuria kristinae and Gram positive faraz. He is tolerating the Doxycycline well. He has [place] to help with the wound care. Stressed importance of not picking at these ulcers. He complains of itching. He is using Vistaril 25 mg TID PRN for itching. Which he states has been helping with the itching. Encouraged him to cut his finger nails short and wear socks to bed to help prevent him from scratching. Will refer him to Dermatology for further evaluation of these multiple black scabs. Follow up one week.
[2022-12-18 15:14] VITALS: BP 145/98; PULSE 70; TEMP 36.4; BMI 40.6
[2022-12-20 11:27] VITALS: BP 111/73; PULSE 78; RESP 22; TEMP 36.2; BMI 40.6
--- NOTE | 2022-12-20 12:57 | PCM.WC.PN ---
History of Present Illness Date of Service: 12/20/22 Chief Complaint: Superficial ulcers to bilateral lower legs History of Wound: Patient is a 77 year old male who has multiple skin lesions scattered over his chest, arms, hands and abdomen and legs. The initial skin lesions started from a bed bugs which were causing him to scratch. He was hospitalized at the end of August for sepsis and cellulitis. He was discharged to [facility]. He has since been discharged home and has home health from [facility]. He does admit to picking at the scabbing. He has not been consistently putting anything on these areas. He is on Warfarin for history of PE, also has a history of HTN, CKD II, anemia, RAAD, bilateral leg edema and debility. He denies fever, chills, nausea, vomiting. Progress of Wound: Right anterior shoulder ulcer, upper mid to left chest cluster are smaller but he has some hypergranulation tissue present. The right anterior/medial leg ulcer is healed but there is a skin tear present. The left lateral/posterior leg ulcers are healed. His edema and skin on his legs are much improved with wearing the Unna boots. Objective Data Objective Data Vital Signs: Vital Signs Temp Pulse Resp BP 97.2 F L 78 22 H 111/73 12/20/22 11:27 12/20/22 11:27 12/20/22 11:27 12/20/22 11:27 Weight: 300 lb Body Mass Index (BMI) 40.6 Charges/Coding Procedures Integumentary 111xxx-113xx: 80011 Roxie subq tissue 20 sq cm/< Add On Codes: [id number] Roxie subq tissue add-on (x5) Debridement Note Debridement Note Wound debrided: (#5) upper chest cluster and (#10) Right anterior shoulder/chest Wound Grade/Stage: Stage II Type of Debridement: Excisional debridement Anesthesia Used: 4% Lidocaine Solution Depth: Down to and including healthy tissue and in the subcutaneous layer Percentage of wound debrided: 100 Instrument Used: 5mm curette Tissue Removed: Devitalized tissue and slough Severity: Limited To Skin Breakdown Amount of bleeding with debridement: Mild Bleeding Controlled with: Pressure, Compression and gauze and Silver Nitrate (to right anterior shoulder and one of the anterior chest ulcers) Patient tolerated procedure: Patient tolerated procedure well Post-Debridement Measurements and Additional Note: Post-Debridement Measurements/Treatment WC - Nurse 1 - General Ulcer Assessment Start: 11/29/22 10:52 Freq: Status: Active Protocol: SIMON.ZULEMA Activity Type Activity Date Activity User E-sign Co-sign Detail Recorded Client Recorded Date Recorded By Document 11/29/22 10:52 DL [id number] 11/29/22 11:11 DL Document 12/06/22 10:25 DL [id number] 12/06/22 10:33 DL Document 12/11/22 10:36 ML [id number] 12/11/22 10:37 ML Document 12/13/22 11:47 DL [id number] 12/13/22 12:00 DL Document 12/18/22 15:14 AK [id number] 12/18/22 15:15 AK Document 12/20/22 11:27 DL [id number] 12/20/22 11:38 DL 11/29/22 12/06/22 12/11/22 10:52 10:25 10:36 WC - Today's Visit Information Type of service Follow-up Visit Follow-up Visit Nurse-only (Physician/AVIATION W[employer]FARE SYSTEMS OPERATOR (Physician/AVIATION WARFARE SYSTEMS OPERATOR Visit ) ) Arrival Mode Ambulatory,Cane Ambulatory,Cane Cane Transfer Assistance None None None Patient Identification Verified (Name & Yes Yes Yes ) Patient Requires Transmission-Based No No No Precautions Safety Precautions NA Height and Weight Body Mass Index (BMI) 40.6 40.6 40.6 BMI Classification Obese Obese Obese Vital Signs Temperature (97.8 F-99.1 F) 97.3 F L 97.5 F L 96.5 F L Temperature Source Temporal Temporal Temporal Pulse Rate (60-100) 101 H 71 85 Pulse Location Monitor Monitor Monitor Respiratory Rate (12-18) 22 H 20 H 21 H Respiratory rate source Observation Blood Pressure (90/60-120/80) 134/69 H 157/85 H 159/89 H Blood Pressure Mean (mm Hg) 90 109 112 Source Monitor Monitor Manual Position Sitting Blood Pressure Location Right Arm History Since Last Visit- (Skip if this is Patient's initial visit) Have you changed medications since your No No No last visit? Any new allergies or adverse reactions No No No Had a fall/change in ADL's that may No No No increase risk of falls Signs or symptoms of abuse and/or No No No neglect since last visit Have you been in the hospital since your No No No last visit? Has dressing in place as prescribed Yes Yes Yes Has compression in place as prescribed N/A Yes Has offloadiing in place as prescribed N/A N/A N/A Experienced any changes in pain level or Yes No No management Left Footwear Regular Shoe Right Footwear Regular Shoe Pain Scale: 0-10 Numeric Is Patient Pain Free? Yes Yes Yes 12/13/22 12/18/22 12/20/22 11:47 15:14 11:27 - Today's Visit Information Type of service Follow-up Visit Follow-up Visit Follow-up Visit (Physician/AVIATION WARFARE SYSTEMS OPERATOR (Physician/AVIATION WARFARE SYSTEMS OPERATOR (Physician/AVIATION WARFARE SYSTEMS OPERATOR ) ) ) Arrival Mode Ambulatory Ambulatory Ambulatory Transfer Assistance None None Patient Identification Verified (Name & Yes Yes Yes ) Patient Requires Transmission-Based No No Precautions Safety Precautions Height and Weight Body Mass Index (BMI) 40.6 40.6 40.6 BMI Classification Obese Obese Obese Vital Signs Temperature (97.8 F-99.1 F) 97.4 F L 97.6 F L 97.2 F L Temperature Source Temporal Temporal Temporal Pulse Rate (60-100) 86 70 78 Pulse Location Monitor Monitor Monitor Respiratory Rate (12-18) 20 H 22 H Respiratory rate source Observation Ausculation Blood Pressure (90/60-120/80) 134/80 H 145/98 H 111/73 Blood Pressure Mean (mm Hg) 98 113 85 Source Monitor Monitor Monitor Position Blood Pressure Location History Since Last Visit- (Skip if this is Patient's initial visit) Have you changed medications since your No No No last visit? Any new allergies or adverse reactions No No No Had a fall/change in ADL's that may No No No increase risk of falls Signs or symptoms of abuse and/or No No No neglect since last visit Have you been in the hospital since your No No No last visit? Has dressing in place as prescribed Yes Yes Yes Has compression in place as prescribed Yes Yes Yes Has offloadiing in place as prescribed N/A N/A N/A Experienced any changes in pain level or No No No management Left Footwear Regular Shoe Right Footwear Regular Shoe Pain Scale: 0-10 Numeric Is Patient Pain Free? Yes Yes Yes - Nurse 1 - General Ulcer Measurement Start: 11/29/22 10:52 Freq: Status: Active Protocol: Activity Type Activity Date Activity User E-sign Co-sign Detail Recorded Client Recorded Date Recorded By Document 11/29/22 10:52 DL [id number] 11/29/22 11:11 DL Document 12/06/22 10:25 DL [id number] 12/06/22 10:33 DL Document 12/13/22 11:47 DL [id number] 12/13/22 12:00 DL Document 12/20/22 11:27 DL [id number] 12/20/22 11:38 DL 11/29/22 12/06/22 12/13/22 10:52 10:25 11:47 Wound Center Nurse 1 12-right lateral leg cluster -Current Size (cm) - Length 0.1 -Current Size (cm) - Width 0.1 -Current Size (cm) - Depth 0.1 -Total Square Cm 0.01 -Photo Taken No -Exudate Amt None Present -Wound Margin Indistinct, Non -Visible -Granulation Amt Large (67-100%) -Granulation Quality Hough -Necrosis Amt Small (1-33%) -Necrotic Tissue Type Adherent Slough -Structure Exposed N/A -Texture (Uyen-wound Skin Appearance) Scarring -Moisture (Uyen-wound Skin Appearance) Dry/Scaly -Color (Uyen-wound Skin Appearance) Hemosiderin Staining -Temperature (Uyen-wound Skin No Abnormality Appearance) (Pt Warm) -Ulcer Cleansing Soap and Water -Foul Odor after Cleansing No 11-right medial leg cluster -Current Size (cm) - Length 2.5 10.2 0.1 -Current Size (cm) - Width 1 2 0.1 -Current Size (cm) - Depth 0.1 0.1 0.1 -Total Square Cm 2.5 20.4 0.01 -Photo Taken No Yes -Exudate Amt None Present Small Small -Exudate Type Serosanguineous Serosanguineous -Wound Margin Thickened Distinct, Distinct, Outline Outline Attached Attached -Granulation Amt None Present (0 Large (67-100%) None Present (0 %) %) -Granulation Quality Red -Slough/Fibrin Yes -Necrosis Amt Large (67-100%) None Present (0 None Present (0 %) %) -Necrotic Tissue Type Adherent Slough -Structure Exposed N/A N/A -Texture (Uyen-wound Skin Appearance) Scarring Scarring,Rash Assessed -Moisture (Uyen-wound Skin Appearance) Dry/Scaly Dry/Scaly Assessed -Color (Uyen-wound Skin Appearance) Hemosiderin No Abnormality Assessed Staining -Temperature (Uyen-wound Skin No Abnormality No Abnormality No Abnormality Appearance) (Pt Warm) (Pt Warm) (Pt Warm) -Tenderness on Palpation (Uyen-wound No No No Skin Appearance) -Ulcer Cleansing Rinsed/ Soap and Water Soap and Water Irrigated with Saline -Foul Odor after Cleansing No No No -Anesthetic Used 5% Lidocaine 5% Lidocaine 4% Lidocaine Gel Gel Solution #9 L post -Combined with (Name of Wound-Exactly 0.1 as it is documented) -Current Size (cm) - Length 3.5 0.1 0.1 -Current Size (cm) - Width 2 0.1 0.1 -Current Size (cm) - Depth 0.1 0.1 -Total Square Cm 7.0 0.01 0.01 -Photo Taken No No -Exudate Amt None Present None Present None Present -Wound Margin Thickened Indistinct, Non Distinct, -Visible Outline Attached -Granulation Amt Medium (34-66%) Large (67-100%) None Present (0 %) -Granulation Quality Hough Hough -Slough/Fibrin No -Necrosis Amt Medium (34-66%) None Present (0 None Present (0 %) %) -Necrotic Tissue Type Eschar -Structure Exposed N/A N/A -Texture (Uyen-wound Skin Appearance) Scarring Scarring,Rash Assessed -Moisture (Uyen-wound Skin Appearance) Dry/Scaly Dry/Scaly Assessed -Color (Uyen-wound Skin Appearance) Hemosiderin No Abnormality Assessed Staining -Temperature (Uyen-wound Skin No Abnormality No Abnormality No Abnormality Appearance) (Pt Warm) (Pt Warm) (Pt Warm) -Tenderness on Palpation (Uyen-wound No No No Skin Appearance) -Ulcer Cleansing Rinsed/ Soap and Water Soap and Water Irrigated with Saline -Foul Odor after Cleansing No No No -Anesthetic Used 5% Lidocaine 5% Lidocaine 4% Lidocaine Gel Gel Solution #8 R acuña -Current Size (cm) - Length 0.1 -Current Size (cm) - Width 0.1 -Current Size (cm) - Depth 0.1 -Total Square Cm 0.01 -Photo Taken No -Exudate Amt None Present -Wound Margin Indistinct, Non -Visible -Granulation Amt Large (67-100%) -Granulation Quality Hough -Necrosis Amt None Present (0 %) -Texture (Uyen-wound Skin Appearance) Scarring -Moisture (Uyen-wound Skin Appearance) Dry/Scaly -Color (Yuen-wound Skin Appearance) Hemosiderin Staining -Temperature (Uyen-wound Skin No Abnormality Appearance) (Pt Warm) -Tenderness on Palpation (Uyen-wound No Skin Appearance) -Ulcer Cleansing Soap and Water -Foul Odor after Cleansing No -Anesthetic Used 5% Lidocaine Gel #7 L hand -Current Size (cm) - Length 1.8 -Current Size (cm) - Width 0.5 -Current Size (cm) - Depth 1 -Total Square Cm 0.90 -Photo Taken No -Exudate Amt None Present -Wound Margin Indistinct, Non -Visible -Granulation Amt None Present (0 %) -Necrosis Amt Large (67-100%) -Necrotic Tissue Type Adherent Slough -Structure Exposed N/A -Texture (Uyen-wound Skin Appearance) Scarring -Moisture (Uyen-wound Skin Appearance) Dry/Scaly -Color (Uyen-wound Skin Appearance) No Abnormality -Temperature (Uyen-wound Skin No Abnormality Appearance) (Pt Warm) -Tenderness on Palpation (Uyen-wound No Skin Appearance) -Ulcer Cleansing Rinsed/ Irrigated with Saline -Foul Odor after Cleansing No -Anesthetic Used 5% Lidocaine Gel #6 R hand cluster -Current Size (cm) - Length 2.8 -Current Size (cm) - Width 5.2 -Current Size (cm) - Depth 0.1 -Total Square Cm 14.56 -Photo Taken No -Exudate Amt None Present -Wound Margin Indistinct, Non -Visible -Granulation Amt None Present (0 %) -Necrosis Amt Large (67-100%) -Necrotic Tissue Type Eschar -Structure Exposed N/A -Texture (Uyen-wound Skin Appearance) Scarring -Moisture (Uyen-wound Skin Appearance) Dry/Scaly -Color (Uyen-wound Skin Appearance) No Abnormality -Temperature (Uyen-wound Skin No Abnormality Appearance) (Pt Warm) -Tenderness on Palpation (Uyen-wound No Skin Appearance) -Ulcer Cleansing Rinsed/ Irrigated with Saline -Foul Odor after Cleansing No -Anesthetic Used 5% Lidocaine Gel 10-RIGHT ANTERIOR SHOULDER -Current Size (cm) - Length 4 4 4 -Current Size (cm) - Width 5 5 4.5 -Current Size (cm) - Depth 0.1 0.1 0.1 -Total Square Cm 20 20 18.0 -Photo Taken No Yes -Exudate Amt Small Small Medium -Exudate Type Serosanguineous Serosanguineous -Wound Margin Distinct, Distinct, Distinct, Outline Outline Outline Attached Attached Attached -Granulation Amt Large (67-100%) Large (67-100%) -Granulation Quality Hyper- Hyper- Hyper- granulation,Red granulation,Red granulation,Red -Necrosis Amt Small (1-33%) None Present (0 None Present (0 %) %) -Necrotic Tissue Type Adherent Slough Adherent Slough -Structure Exposed N/A N/A -Texture (Uyen-wound Skin Appearance) Scarring Scarring,Rash Assessed -Moisture (Uyen-wound Skin Appearance) Dry/Scaly Dry/Scaly Assessed -Color (Uyen-wound Skin Appearance) No Abnormality No Abnormality Assessed -Temperature (Uyen-wound Skin No Abnormality No Abnormality No Abnormality Appearance) (Pt Warm) (Pt Warm) (Pt Warm) -Tenderness on Palpation (Uyen-wound No No No Skin Appearance) -Ulcer Cleansing Rinsed/ Soap and Water Soap and Water Irrigated with Saline -Foul Odor after Cleansing No No No -Anesthetic Used 5% Lidocaine 5% Lidocaine 4% Lidocaine Gel Gel Solution #5 upper chest cluster -Current Size (cm) - Length 6 20 16.2 -Current Size (cm) - Width 15 7 3.8 -Current Size (cm) - Depth 0.1 0.1 0.1 -Total Square Cm 90 140 61.56 -Photo Taken No Yes -Exudate Amt None Present Small Large -Exudate Type Serosanguineous Serosanguineous -Wound Margin Indistinct, Non Indistinct, Non Distinct, -Visible -Visible Outline Attached -Granulation Amt None Present (0 Large (67-100%) %) -Granulation Quality Hough -Slough/Fibrin Yes -Necrosis Amt Large (67-100%) None Present (0 None Present (0 %) %) -Necrotic Tissue Type Eschar Adherent Slough -Structure Exposed N/A N/A -Texture (Uyen-wound Skin Appearance) Scarring Scarring,Rash Assessed -Moisture (Uyen-wound Skin Appearance) Dry/Scaly Dry/Scaly Assessed -Color (Uyen-wound Skin Appearance) No Abnormality No Abnormality No Abnormality -Temperature (Uyen-wound Skin No Abnormality No Abnormality No Abnormality Appearance) (Pt Warm) (Pt Warm) (Pt Warm) -Tenderness on Palpation (Uyen-wound No No Skin Appearance) -Ulcer Cleansing Rinsed/ Soap and Water Soap and Water Irrigated with Saline -Foul Odor after Cleansing No No No -Anesthetic Used 5% Lidocaine 5% Lidocaine 4% Lidocaine Gel Gel Solution Right Calf (cm) 53.5 51 Right Ankle (cm) 27 27 Left Calf (cm) 52 48.5 Left Ankle (cm) 28.2 26.7 12/20/22 11:27 Wound Center Nurse 1 12-right lateral leg cluster -Current Size (cm) - Length -Current Size (cm) - Width -Current Size (cm) - Depth -Total Square Cm -Photo Taken -Exudate Amt -Wound Margin -Granulation Amt -Granulation Quality -Necrosis Amt -Necrotic Tissue Type -Structure Exposed -Texture (Uyen-wound Skin Appearance) -Moisture (Uyen-wound Skin Appearance) -Color (Uyen-wound Skin Appearance) -Temperature (Uyen-wound Skin Appearance) -Ulcer Cleansing -Foul Odor after Cleansing 11-right medial leg cluster -Current Size (cm) - Length 0.1 -Current Size (cm) - Width 0.1 -Current Size (cm) - Depth 0.1 -Total Square Cm 0.01 -Photo Taken No -Exudate Amt None Present -Exudate Type -Wound Margin Indistinct, Non -Visible -Granulation Amt Large (67-100%) -Granulation Quality Hough -Slough/Fibrin -Necrosis Amt None Present (0 %) -Necrotic Tissue Type -Structure Exposed N/A -Texture (Uyen-wound Skin Appearance) Scarring -Moisture (Uyen-wound Skin Appearance) No Abnormality -Color (Uyen-wound Skin Appearance) Hemosiderin Staining -Temperature (Uyen-wound Skin No Abnormality Appearance) (Pt Warm) -Tenderness on Palpation (Uyen-wound No Skin Appearance) -Ulcer Cleansing Soap and Water -Foul Odor after Cleansing No -Anesthetic Used #9 L post -Combined with (Name of Wound-Exactly as it is documented) -Current Size (cm) - Length 0.1 -Current Size (cm) - Width 0.1 -Current Size (cm) - Depth 0.1 -Total Square Cm 0.01 -Photo Taken No -Exudate Amt None Present -Wound Margin Indistinct, Non -Visible -Granulation Amt Large (67-100%) -Granulation Quality Hough -Slough/Fibrin -Necrosis Amt None Present (0 %) -Necrotic Tissue Type -Structure Exposed N/A -Texture (Uyen-wound Skin Appearance) Scarring -Moisture (Uyen-wound Skin Appearance) No Abnormality -Color (Uyen-wound Skin Appearance) Hemosiderin Staining -Temperature (Uyen-wound Skin No Abnormality Appearance) (Pt Warm) -Tenderness on Palpation (Uyen-wound No Skin Appearance) -Ulcer Cleansing Soap and Water -Foul Odor after Cleansing No -Anesthetic Used #8 R acuña -Current Size (cm) - Length -Current Size (cm) - Width -Current Size (cm) - Depth -Total Square Cm -Photo Taken -Exudate Amt -Wound Margin -Granulation Amt -Granulation Quality -Necrosis Amt -Texture (Uyen-wound Skin Appearance) -Moisture (Uyen-wound Skin Appearance) -Color (Uyen-wound Skin Appearance) -Temperature (Uyen-wound Skin Appearance) -Tenderness on Palpation (Uyen-wound Skin Appearance) -Ulcer Cleansing -Foul Odor after Cleansing -Anesthetic Used #7 L hand -Current Size (cm) - Length -Current Size (cm) - Width -Current Size (cm) - Depth -Total Square Cm -Photo Taken -Exudate Amt -Wound Margin -Granulation Amt -Necrosis Amt -Necrotic Tissue Type -Structure Exposed -Texture (Uyen-wound Skin Appearance) -Moisture (Uyen-wound Skin Appearance) -Color (Uyen-wound Skin Appearance) -Temperature (Uyen-wound Skin Appearance) -Tenderness on Palpation (Uyen-wound Skin Appearance) -Ulcer Cleansing -Foul Odor after Cleansing -Anesthetic Used #6 R hand cluster -Current Size (cm) - Length -Current Size (cm) - Width -Current Size (cm) - Depth -Total Square Cm -Photo Taken -Exudate Amt -Wound Margin -Granulation Amt -Necrosis Amt -Necrotic Tissue Type -Structure Exposed -Texture (Uyen-wound Skin Appearance) -Moisture (Uyen-wound Skin Appearance) -Color (Uyen-wound Skin Appearance) -Temperature (Uyen-wound Skin Appearance) -Tenderness on Palpation (Uyen-wound Skin Appearance) -Ulcer Cleansing -Foul Odor after Cleansing -Anesthetic Used 10-RIGHT ANTERIOR SHOULDER -Current Size (cm) - Length 4.3 -Current Size (cm) - Width 3.8 -Current Size (cm) - Depth 0.1 -Total Square Cm 16.34 -Photo Taken No -Exudate Amt Large -Exudate Type Serosanguineous -Wound Margin Distinct, Outline Attached -Granulation Amt Medium (34-66%) -Granulation Quality Hyper- granulation, Hough,Red -Necrosis Amt Medium (34-66%) -Necrotic Tissue Type Adherent Slough -Structure Exposed N/A -Texture (Uyen-wound Skin Appearance) Scarring -Moisture (Uyen-wound Skin Appearance) No Abnormality -Color (Uyen-wound Skin Appearance) No Abnormality -Temperature (Uyen-wound Skin No Abnormality Appearance) (Pt Warm) -Tenderness on Palpation (Uyen-wound No Skin Appearance) -Ulcer Cleansing Rinsed/ Irrigated with Saline -Foul Odor after Cleansing No -Anesthetic Used 5% Lidocaine Gel #5 upper chest cluster -Current Size (cm) - Length 11.3 -Current Size (cm) - Width 3.3 -Current Size (cm) - Depth 0.1 -Total Square Cm 37.29 -Photo Taken Yes -Exudate Amt None Present -Exudate Type -Wound Margin Thickened -Granulation Amt Small (1-33%) -Granulation Quality Hough -Slough/Fibrin -Necrosis Amt Large (67-100%) -Necrotic Tissue Type Adherent Slough -Structure Exposed N/A -Texture (Uyen-wound Skin Appearance) Scarring -Moisture (Uyen-wound Skin Appearance) Dry/Scaly -Color (Uyen-wound Skin Appearance) No Abnormality -Temperature (Uyen-wound Skin No Abnormality Appearance) (Pt Warm) -Tenderness on Palpation (Uyen-wound No Skin Appearance) -Ulcer Cleansing Rinsed/ Irrigated with Saline -Foul Odor after Cleansing No -Anesthetic Used 5% Lidocaine Gel Right Calf (cm) 50.6 Right Ankle (cm) 27 Left Calf (cm) 53 Left Ankle (cm) 28 WC - Nurse 2 - General Ulcer CM Notes Start: 11/29/22 10:52 Freq: Status: Active Protocol: Activity Type Activity Date Activity User E-sign Co-sign Detail Recorded Client Recorded Date Recorded By Document 11/29/22 11:18 [id number] 11/29/22 11:33 JF Document 12/06/22 10:51 DL [id number] 12/06/22 11:01 DL Document 12/13/22 12:08 [id number] 12/13/22 12:18 JF Document 12/20/22 11:59 [id number] 12/20/22 12:12 JF 11/29/22 12/06/22 12/13/22 11:18 10:51 12:08 Wound Center Nurse 2 12-right lateral leg cluster -Correct Patient No -Correct Side, Site, Position No -Correct Procedure No -Procedure Performed No -Post Debridement (cm) - Length 0 -Post Debridement (cm) - Width 0 -Post Debridement (cm) - Depth 0 -Total Square (Post) (cm) 0 -Area of Debridement (cm) - Length 0 -Area of Debridement (cm) - Width 0 -Total Square (Area) (cm) 0 -Wound/Ulcer Outcome Healed- Epithelialized 11-right medial leg cluster -Time 11:19 10:57 12:15 -Correct Patient Yes Yes Yes -Correct Side, Site, Position Yes Yes Yes -Correct Procedure Yes Yes Yes -Procedure Performed Yes Yes Yes -Type of Procedure Debridement Debridement Debridement -Clinical Debridement Subcutaneous Subcutaneous Subcutaneous -Tissue Removed Subcutaneous Subcutaneous Subcutaneous -Post Debridement (cm) - Length 0.7 10.8 1.0 -Post Debridement (cm) - Width 1 3.5 1.0 -Post Debridement (cm) - Depth 0.1 0.1 0.1 -Total Square (Post) (cm) 0.7 37.80 1.00 -Area of Debridement (cm) - Length 0.7 10.8 1.0 -Area of Debridement (cm) - Width 1 3.5 1.0 -Total Square (Area) (cm) 0.7 37.80 1.00 -Tunneling No No No -Undermining/Tunneling No No No -Circular Undermining No No No -Wound/Ulcer Outcome Not Healed Not Healed Not Healed -Ulcer Cleansing Rinsed/ Rinsed/ Rinsed/ Irrigated with Irrigated with Irrigated with Saline Saline Saline -Foul Odor after Cleansing No No No -Bioengineered Tissue No No No -Bleeding Controlled with Pressure Pressure Pressure -Treatment Response Procedure Procedure Procedure Tolerated Well Tolerated Well Tolerated Well -Offloading No No No -Debridement - Subq, 1st 20sq cm Yes Yes No -Debridement, SubQ, ea addt'l 20sq cm 7 7 or part thereof #9 L post -Time 11:21 10:54 12:16 -Correct Patient Yes Yes Yes -Correct Side, Site, Position Yes Yes Yes -Correct Procedure Yes Yes Yes -Procedure Performed Yes Yes Yes -Type of Procedure Debridement Debridement Debridement -Clinical Debridement Subcutaneous Subcutaneous Subcutaneous -Tissue Removed Subcutaneous Subcutaneous Subcutaneous -Post Debridement (cm) - Length 1.2 1.8 0.5 -Post Debridement (cm) - Width 0.5 1.5 0.5 -Post Debridement (cm) - Depth 0.1 0.1 0.1 -Total Square (Post) (cm) 0.60 2.70 0.25 -Area of Debridement (cm) - Length 1.2 1.8 0.5 -Area of Debridement (cm) - Width 0.5 1.5 0.5 -Total Square (Area) (cm) 0.60 2.70 0.25 -Tunneling No No No -Undermining/Tunneling No No No -Circular Undermining No No No -Wound/Ulcer Outcome Not Healed Not Healed Not Healed -Ulcer Cleansing Rinsed/ Rinsed/ Rinsed/ Irrigated with Irrigated with Irrigated with Saline Saline Saline -Foul Odor after Cleansing No No No -Bioengineered Tissue No No No -Bleeding Controlled with Pressure Pressure Pressure -Treatment Response Procedure Procedure Procedure Tolerated Well Tolerated Well Tolerated Well -Offloading No No No -Debridement - Subq, 1st 20sq cm No No No #8 R acuña -Time 11:21 -Correct Patient No -Correct Side, Site, Position No -Correct Procedure No -Procedure Performed No -Post Debridement (cm) - Length 0 -Post Debridement (cm) - Width 0 -Post Debridement (cm) - Depth 0 -Total Square (Post) (cm) 0 -Area of Debridement (cm) - Length 0 -Area of Debridement (cm) - Width 0 -Total Square (Area) (cm) 0 -Wound/Ulcer Outcome Healed- Epithelialized #7 L hand -Correct Patient No -Correct Side, Site, Position No -Correct Procedure No -Procedure Performed No -Post Debridement (cm) - Length 0 -Post Debridement (cm) - Width 0 -Post Debridement (cm) - Depth 0 -Total Square (Post) (cm) 0 -Wound/Ulcer Outcome Healed- Epithelialized #6 R hand cluster -Time 11:22 -Correct Patient No -Correct Side, Site, Position No -Correct Procedure No -Procedure Performed No -Post Debridement (cm) - Length 0 -Post Debridement (cm) - Width 0 -Post Debridement (cm) - Depth 0 -Total Square (Post) (cm) 0 -Area of Debridement (cm) - Length 0 -Area of Debridement (cm) - Width 0 -Total Square (Area) (cm) 0 -Tunneling No -Undermining/Tunneling No -Circular Undermining No -Wound/Ulcer Outcome Healed- Epithelialized -Ulcer Cleansing Rinsed/ Irrigated with Saline -Foul Odor after Cleansing No -Bioengineered Tissue No -Bleeding Controlled with Pressure -Treatment Response Procedure Tolerated Well -Debridement - Subq, 1st 20sq cm No 10-RIGHT ANTERIOR SHOULDER -Time 11:21 10:52 12:08 -Correct Patient Yes Yes Yes -Correct Side, Site, Position Yes Yes Yes -Correct Procedure Yes Yes Yes -Procedure Performed Yes Yes Yes -Type of Procedure Debridement Debridement Debridement -Clinical Debridement Subcutaneous Subcutaneous Subcutaneous -Tissue Removed Subcutaneous Subcutaneous Subcutaneous -Post Debridement (cm) - Length 6.0 4.2 4.3 -Post Debridement (cm) - Width 3.8 5.2 5 -Post Debridement (cm) - Depth 0.1 0.1 0.1 -Total Square (Post) (cm) 22.80 21.84 21.5 -Area of Debridement (cm) - Length 6.0 4.2 4.3 -Area of Debridement (cm) - Width 3.8 5.2 5 -Total Square (Area) (cm) 22.80 21.84 21.5 -Tunneling No No No -Undermining/Tunneling No No No -Circular Undermining No No No -Wound/Ulcer Outcome Not Healed Not Healed Not Healed -Ulcer Cleansing Rinsed/ Wound Cleanser Rinsed/ Irrigated with Irrigated with Saline Saline -Foul Odor after Cleansing No No No -Bioengineered Tissue No No No -Bleeding Controlled with Pressure Pressure Pressure -Treatment Response Procedure Procedure Procedure Tolerated Well Tolerated Well Tolerated Well -Offloading No No No -Debridement - Subq, 1st 20sq cm No No Yes -Debridement, SubQ, ea addt'l 20sq cm 2 or part thereof #5 upper chest cluster -Time 11:22 10:54 12:09 -Correct Patient Yes Yes Yes -Correct Side, Site, Position Yes Yes Yes -Correct Procedure Yes Yes Yes -Procedure Performed Yes Yes Yes -Type of Procedure Debridement Debridement Debridement -Clinical Debridement Subcutaneous Subcutaneous Subcutaneous -Tissue Removed Subcutaneous Subcutaneous Subcutaneous -Post Debridement (cm) - Length 6.0 5.5 3.0 -Post Debridement (cm) - Width 20 15.0 12 -Post Debridement (cm) - Depth 0.1 0.1 0.1 -Total Square (Post) (cm) 120.0 82.50 36.0 -Area of Debridement (cm) - Length 6.0 5.5 3.0 -Area of Debridement (cm) - Width 20.0 15.0 12 -Total Square (Area) (cm) 120.00 82.50 36.0 -Tunneling No No No -Undermining/Tunneling No No No -Circular Undermining No No No -Wound/Ulcer Outcome Not Healed Not Healed Not Healed -Ulcer Cleansing Rinsed/ Rinsed/ Rinsed/ Irrigated with Irrigated with Irrigated with Saline Saline Saline -Foul Odor after Cleansing No No No -Bioengineered Tissue No No No -Bleeding Controlled with Pressure Pressure Pressure -Treatment Response Procedure Procedure Procedure Tolerated Well Tolerated Well Tolerated Well -Offloading No No No -Debridement - Subq, 1st 20sq cm No No No Pain Scale: 0-10 Numeric Is Patient Pain Free? Yes Yes Yes 12/20/22 11:59 Wound Center Nurse 2 12-right lateral leg cluster -Correct Patient -Correct Side, Site, Position -Correct Procedure -Procedure Performed -Post Debridement (cm) - Length -Post Debridement (cm) - Width -Post Debridement (cm) - Depth -Total Square (Post) (cm) -Area of Debridement (cm) - Length -Area of Debridement (cm) - Width -Total Square (Area) (cm) -Wound/Ulcer Outcome 11-right medial leg cluster -Time -Correct Patient No -Correct Side, Site, Position No -Correct Procedure No -Procedure Performed No -Type of Procedure -Clinical Debridement -Tissue Removed -Post Debridement (cm) - Length 0 -Post Debridement (cm) - Width 0 -Post Debridement (cm) - Depth 0 -Total Square (Post) (cm) 0 -Area of Debridement (cm) - Length 0 -Area of Debridement (cm) - Width 0 -Total Square (Area) (cm) 0 -Tunneling -Undermining/Tunneling -Circular Undermining -Wound/Ulcer Outcome Healed- Epithelialized -Ulcer Cleansing -Foul Odor after Cleansing -Bioengineered Tissue -Bleeding Controlled with -Treatment Response -Offloading -Debridement - Subq, 1st 20sq cm -Debridement, SubQ, ea addt'l 20sq cm or part thereof #9 L post -Time -Correct Patient No -Correct Side, Site, Position No -Correct Procedure No -Procedure Performed No -Type of Procedure -Clinical Debridement -Tissue Removed -Post Debridement (cm) - Length 0 -Post Debridement (cm) - Width 0 -Post Debridement (cm) - Depth 0 -Total Square (Post) (cm) 0 -Area of Debridement (cm) - Length 0 -Area of Debridement (cm) - Width 0 -Total Square (Area) (cm) 0 -Tunneling -Undermining/Tunneling -Circular Undermining -Wound/Ulcer Outcome Healed- Epithelialized -Ulcer Cleansing -Foul Odor after Cleansing -Bioengineered Tissue -Bleeding Controlled with -Treatment Response -Offloading -Debridement - Subq, 1st 20sq cm #8 R acuña -Time -Correct Patient -Correct Side, Site, Position -Correct Procedure -Procedure Performed -Post Debridement (cm) - Length -Post Debridement (cm) - Width -Post Debridement (cm) - Depth -Total Square (Post) (cm) -Area of Debridement (cm) - Length -Area of Debridement (cm) - Width -Total Square (Area) (cm) -Wound/Ulcer Outcome #7 L hand -Correct Patient -Correct Side, Site, Position -Correct Procedure -Procedure Performed -Post Debridement (cm) - Length -Post Debridement (cm) - Width -Post Debridement (cm) - Depth -Total Square (Post) (cm) -Wound/Ulcer Outcome #6 R hand cluster -Time -Correct Patient -Correct Side, Site, Position -Correct Procedure -Procedure Performed -Post Debridement (cm) - Length -Post Debridement (cm) - Width -Post Debridement (cm) - Depth -Total Square (Post) (cm) -Area of Debridement (cm) - Length -Area of Debridement (cm) - Width -Total Square (Area) (cm) -Tunneling -Undermining/Tunneling -Circular Undermining -Wound/Ulcer Outcome -Ulcer Cleansing -Foul Odor after Cleansing -Bioengineered Tissue -Bleeding Controlled with -Treatment Response -Debridement - Subq, 1st 20sq cm 10-RIGHT ANTERIOR SHOULDER -Time 12:04 -Correct Patient Yes -Correct Side, Site, Position Yes -Correct Procedure Yes -Procedure Performed Yes -Type of Procedure Debridement -Clinical Debridement Subcutaneous -Tissue Removed Subcutaneous -Post Debridement (cm) - Length 5.0 -Post Debridement (cm) - Width 4.0 -Post Debridement (cm) - Depth 0.1 -Total Square (Post) (cm) 20.00 -Area of Debridement (cm) - Length 5.0 -Area of Debridement (cm) - Width 4.0 -Total Square (Area) (cm) 20.00 -Tunneling No -Undermining/Tunneling No -Circular Undermining No -Wound/Ulcer Outcome Not Healed -Ulcer Cleansing Rinsed/ Irrigated with Saline -Foul Odor after Cleansing No -Bioengineered Tissue No -Bleeding Controlled with Pressure,Silver Nitrate -Treatment Response Procedure Tolerated Well -Offloading No -Debridement - Subq, 1st 20sq cm Yes -Debridement, SubQ, ea addt'l 20sq cm 5 or part thereof #5 upper chest cluster -Time 12:06 -Correct Patient Yes -Correct Side, Site, Position Yes -Correct Procedure Yes -Procedure Performed Yes -Type of Procedure Debridement -Clinical Debridement Subcutaneous -Tissue Removed Subcutaneous -Post Debridement (cm) - Length 6.5 -Post Debridement (cm) - Width 15.0 -Post Debridement (cm) - Depth 0.1 -Total Square (Post) (cm) 97.50 -Area of Debridement (cm) - Length 6.5 -Area of Debridement (cm) - Width 15.0 -Total Square (Area) (cm) 97.50 -Tunneling No -Undermining/Tunneling No -Circular Undermining No -Wound/Ulcer Outcome Not Healed -Ulcer Cleansing Rinsed/ Irrigated with Saline -Foul Odor after Cleansing No -Bioengineered Tissue No -Bleeding Controlled with Pressure -Treatment Response Procedure Tolerated Well -Offloading No -Debridement - Subq, 1st 20sq cm No Pain Scale: 0-10 Numeric Is Patient Pain Free? Yes WC - Nurse 3 - General Ulcer D/C NN Start: 11/29/22 10:52 Freq: Status: Active Protocol: Activity Type Activity Date Activity User E-sign Co-sign Detail Recorded Client Recorded Date Recorded By Document 11/29/22 12:22 DL [id number] 11/29/22 12:24 DL Document 12/06/22 11:20 DL [id number] 12/06/22 11:22 DL Document 12/11/22 10:36 ML [id number] 12/11/22 10:37 ML Document 12/13/22 12:25 DL [id number] 12/13/22 12:30 DL Document 12/18/22 15:14 AK [id number] 12/18/22 15:15 AK Document 12/20/22 12:26 DL [id number] 12/20/22 12:28 DL 11/29/22 12/06/22 12/11/22 12:22 11:20 10:36 Wound Care Center Nurse 3 11-right medial leg cluster -Ulcer Cleansing Rinsed/ Rinsed/ Irrigated with Irrigated with Saline Saline -Foul Odor after Cleansing No -Negative Pressure Wound Therapy -Primary Dressing Applied Aquacel AG 4x4 -Other Dressing bactroban -Primary Dressing Covered/Secured with Dry Gauze & Roll Gauze, Secured with Tape -Aquacel AG 4x4 2 #9 L post -Ulcer Cleansing Rinsed/ Rinsed/ Irrigated with Irrigated with Saline Saline -Foul Odor after Cleansing No -Other Dressing bactroban aquacel ag -Primary Dressing Covered/Secured with Dry Gauze & Dry Gauze Roll Gauze, Secured with Tape 10-RIGHT ANTERIOR SHOULDER -Ulcer Cleansing Rinsed/ Rinsed/ Irrigated with Irrigated with Saline Saline -Foul Odor after Cleansing No -Primary Dressing Applied Aquacel AG 4x4 -Other Dressing aquacel ag -Primary Dressing Covered/Secured with Dry Gauze, Dry Gauze, Secured with Secured with Tape Tape -Aquacel AG 4x4 1 #5 upper chest cluster -Ulcer Cleansing Rinsed/ Rinsed/ Irrigated with Irrigated with Saline Saline -Foul Odor after Cleansing No -Primary Dressing Applied -Other Dressing aquacel ag aquavel ag -Primary Dressing Covered/Secured with Dry Gauze, Dry Gauze, Secured with Secured with Tape Tape bilateral -Lotion applied to leg before compression wrap -Multi-Layered Wrap Application Unna Boot - Unna Boot - Bilateral ($) Bilateral ($) -Unna Boots (Bilat) ($) 2 2 Left -Compression Wrap Norbert Wrap -Tubular Bandage -Size of Tubigrip Used -Size F ($) Right -Multi-Layered Wrap Application -Compression Wrap Norbert Wrap Treatment Response Procedure Procedure Tolerated Well Tolerated Well Vital Signs Temperature (97.8 F-99.1 F) 96.5 F L Temperature Source Temporal Pulse Rate (60-100) 85 Pulse Location Monitor Respiratory Rate (12-18) 21 H Respiratory rate source Observation Blood Pressure (90/60-120/80) 159/89 H Blood Pressure Mean (mm Hg) 112 Source Manual Position Sitting Blood Pressure Location Right Arm Pain Scale: 0-10 Numeric Is Patient Pain Free? Yes Yes Yes WC - Visit Discharge Discharge Condition Stable Stable Ambulatory Status Ambulatory,Cane Ambulatory,Cane Transportation Private Auto Private Auto Medication Reconcilliation completed & No provided to patient/care provider Clinical Summary of Care Provided Yes Facility Type Home Health Orders Sent Yes 12/13/22 12/18/22 12/20/22 12:25 15:14 12:26 Wound Care Center Nurse 3 11-right medial leg cluster -Ulcer Cleansing Soap and Water Soap and Water -Foul Odor after Cleansing No No -Negative Pressure Wound Therapy N/A -Primary Dressing Applied Aquacel AG 4x4 -Other Dressing unna -Primary Dressing Covered/Secured with -Aquacel AG 4x4 1 #9 L post -Ulcer Cleansing Soap and Water -Foul Odor after Cleansing No -Other Dressing aquacel ag/ unna -Primary Dressing Covered/Secured with 10-RIGHT ANTERIOR SHOULDER -Ulcer Cleansing Rinsed/ Rinsed/ Irrigated with Irrigated with Saline Saline -Foul Odor after Cleansing No No -Primary Dressing Applied NonAdherent NonAdherent Contact Layer Contact Layer -Other Dressing hydrogel hydrogel -Primary Dressing Covered/Secured with Dry Gauze, Dry Gauze, Secured with Secured with Tape Tape -Aquacel AG 4x4 #5 upper chest cluster -Ulcer Cleansing Rinsed/ Rinsed/ Irrigated with Irrigated with Saline Saline -Foul Odor after Cleansing No No -Primary Dressing Applied NonAdherent NonAdherent Contact Layer Contact Layer -Other Dressing hydrogel hydrogel -Primary Dressing Covered/Secured with Dry Gauze, Dry Gauze, Secured with Secured with Tape Tape bilateral -Lotion applied to leg before No compression wrap -Multi-Layered Wrap Application Unna Boot - Unna Boot - Bilateral ($) Bilateral ($) -Unna Boots (Bilat) ($) 2 2 Left -Compression Wrap -Tubular Bandage Double Layer -Size of Tubigrip Used Size F -Size F ($) 2 Right -Multi-Layered Wrap Application Multi-Layer Comp - Right ($ ) -Compression Wrap Treatment Response Procedure Procedure Tolerated Well Tolerated Well Vital Signs Temperature (97.8 F-99.1 F) 97.6 F L Temperature Source Temporal Pulse Rate (60-100) 70 Pulse Location Monitor Respiratory Rate (12-18) Respiratory rate source Blood Pressure (90/60-120/80) 145/98 H Blood Pressure Mean (mm Hg) 113 Source Monitor Position Blood Pressure Location Pain Scale: 0-10 Numeric Is Patient Pain Free? Yes Yes Yes WC - Visit Discharge Discharge Condition Stable Stable Stable Ambulatory Status Ambulatory Ambulatory Ambulatory Transportation Private Auto Private Auto Private Auto Medication Reconcilliation completed & Yes provided to patient/care provider Clinical Summary of Care Provided Yes Facility Type Home Health Home Health Orders Sent Yes Yes Assessment/Plan Assessment/Plan (1) Ulcer of chest wall, limited to breakdown of skin: CODE(S): L98.491 - Non-pressure chronic ulcer of skin of other sites limited to breakdown of skin (2) Ulcer of left lower extremity, limited to breakdown of skin: CODE(S): L97.921 - Non-pressure chronic ulcer of unspecified part of left lower leg limited to breakdown of skin (3) Ulcer of right lower extremity, limited to breakdown of skin: CODE(S): L97.911 - Non-pressure chronic ulcer of unspecified part of right lower leg limited to breakdown of skin (4) Skin ulcer of hand, limited to breakdown of skin: CODE(S): L98.491 - Non-pressure chronic ulcer of skin of other sites limited to breakdown of skin (5) Age-related physical debility: CODE(S): R54 - Age-related physical debility (6) Edema of both legs: CODE(S): R60.0 - Localized edema (7) Skin-picking disorder: CODE(S): F42.4 - Excoriation (skin-picking) disorder PLAN: Plan Patient evaluated at the wound healing center today. Wound care to the upper chest/anterior shoulder ulcers place moistened Collagen hydrogel, cover with adaptic and cover with gauze daily. On right anterior leg skin tears place adaptic then place 3M 2 layer wrap for compression. On the left leg place double tubigrip for compression. A wound culture was obtained on 11/14/22 of the upper chest/anterior shoulder ulcers which was positive for Staphylococcus aureus, Kocuria kristinae and Gram positive faraz. He has completed the Doxycycline. He has [facility] to help with the wound care. Stressed importance of not picking at these ulcers. He complains of itching. He is using Vistaril 25 mg TID PRN for itching. Which he states has been helping with the itching. Encouraged him to cut his finger nails short and wear socks to bed to help prevent him from scratching. Will refer him to Dermatology for further evaluation of these multiple black scabs. He has not scheduled an appointment with them yet. Follow up one week.
== END 2022-12-26 23:59 | disposition home or self-care (01) ==
LOC: WC 11:00
PROVIDERS: PCP Nurse Practitioner Family; Referring Provider Nurse Practitioner Family; Visit Provider Nurse Practitioner Family
DX: L97.921 Non-pressure chronic ulcer of unspecified part of left lower leg limited to breakdown of skin (principal); L97.911 Non-pressure chronic ulcer of unspecified part of right lower leg limited to breakdown of skin; L98.491 Non-pressure chronic ulcer of skin of other sites limited to breakdown of skin; F42.4 Excoriation (skin-picking) disorder; R60.0 Localized edema; I12.9 Hypertensive chronic kidney disease with stage 1 through stage 4 chronic kidney disease, or unspecified chronic kidney disease; N18.2 Chronic kidney disease, stage 2 (mild); G47.33 Obstructive sleep apnea (adult) (pediatric)
CPT/HCPCS: 11042; 11045; 29580; 29581

== ENCOUNTER → 2022-12-20 | Outpatient (CLI) | payer MEDICARE, SELFPAY | END | disposition home or self-care (01) | LOC: LABSPEC 11:07 | PROVIDERS: PCP Nurse Practitioner Family; Visit Provider Internal Medicine | DX: I13.0 Hypertensive heart and chronic kidney disease with heart failure and stage 1 through stage 4 chronic kidney disease, or unspecified chronic kidney disease (principal); I50.810 Right heart failure, unspecified ==

== ENCOUNTER 2023-01-24 11:30 | Outpatient (RCR) | payer MEDICARE, MEDICAID, SELFPAY ==
[2022-12-27 00:10] VITALS: BP 111/73; PULSE 78; RESP 22; TEMP 36.2; BMI 40.6
[2022-12-27 11:27] VITALS: BP 134/73; PULSE 69; RESP 18; TEMP 36.1; BMI 40.6
--- NOTE | 2022-12-27 11:57 | PCM.WC.PN ---
History of Present Illness Date of Service: 12/27/22 Chief Complaint: Superficial ulcers to bilateral lower legs History of Wound: Patient is a 77 year old male who has multiple skin lesions scattered over his chest, arms, hands and abdomen and legs. The initial skin lesions started from a bed bugs which were causing him to scratch. He was hospitalized at the end of August for sepsis and cellulitis. He was discharged to [facility]. He has since been discharged home and has home health from [facility]. He does admit to picking at the scabbing. He has not been consistently putting anything on these areas. He is on Warfarin for history of PE, also has a history of HTN, CKD II, anemia, RAAD, bilateral leg edema and debility. He denies fever, chills, nausea, vomiting. Progress of Wound: Right anterior shoulder ulcer, upper mid to left chest cluster are smaller and does not have hypergranulation tissue present, they all have dry scabbing surrounding the ulcers. The right anterior/medial leg ulcer skin tear present is smaller. The left lateral/posterior leg ulcers remain healed. His edema and skin on his legs are much improved with wearing the 3 M 2 layer wraps. Objective Data Objective Data Vital Signs: Vital Signs Temp Pulse Resp BP 97 F L 69 18 134/73 H 12/27/22 11:27 12/27/22 11:27 12/27/22 11:27 12/27/22 11:27 Weight: 300 lb Body Mass Index (BMI) 40.6 Charges/Coding Procedures Integumentary 111xxx-113xx: 64038 Roxie subq tissue 20 sq cm/< Add On Codes: 45379 Roxie subq tissue add-on (x3) Debridement Note Debridement Note Wound debrided: (#5) upper chest cluster and (#10) Right anterior shoulder/chest Wound Grade/Stage: Stage II Type of Debridement: Excisional debridement Anesthesia Used: 4% Lidocaine Solution Depth: Down to and including healthy tissue and in the subcutaneous layer Percentage of wound debrided: 100 Instrument Used: 5mm curette Tissue Removed: Devitalized tissue and slough Severity: Limited To Skin Breakdown Amount of bleeding with debridement: Mild Bleeding Controlled with: Pressure, Compression and gauze and Silver Nitrate (to right anterior shoulder and one of the anterior chest ulcers) Patient tolerated procedure: Patient tolerated procedure well Post-Debridement Measurements and Additional Note: Post-Debridement Measurements/Treatment SIMON - Nurse 1 - General Ulcer Assessment Start: 12/27/22 11:27 Freq: Status: Active Protocol: DORY Activity Type Activity Date Activity User E-sign Co-sign Detail Recorded Client Recorded Date Recorded By Document 12/27/22 11:27 RB [id number] 12/27/22 11:35 RB 12/27/22 11:27 WC - Today's Visit Information Type of service Follow-up Visit (Physician/OCCUPATIONAL THERAPIST ) Arrival Mode Ambulatory,Cane Transfer Assistance None Patient Identification Verified (Name & Yes ) Patient Requires Transmission-Based No Precautions Height and Weight Body Mass Index (BMI) 40.6 BMI Classification Obese Vital Signs Temperature (97.8 F-99.1 F) 97 F L Temperature Source Temporal Pulse Rate (60-100) 69 Pulse Location Monitor Respiratory Rate (12-18) 18 Respiratory rate source Observation Blood Pressure (90/60-120/80) 134/73 H Blood Pressure Mean (mm Hg) 93 Source Monitor Position Semi-Fowlers History Since Last Visit- (Skip if this is Patient's initial visit) Have you changed medications since your No last visit? Any new allergies or adverse reactions No Had a fall/change in ADL's that may No increase risk of falls Signs or symptoms of abuse and/or No neglect since last visit Have you been in the hospital since your No last visit? Has dressing in place as prescribed Yes Has compression in place as prescribed Yes Has offloadiing in place as prescribed No Experienced any changes in pain level or No management Pain Scale: 0-10 Numeric Is Patient Pain Free? Yes - Nurse 1 - General Ulcer Measurement Start: 12/27/22 11:27 Freq: Status: Active Protocol: Activity Type Activity Date Activity User E-sign Co-sign Detail Recorded Client Recorded Date Recorded By Document 12/27/22 11:27 RB [id number] 12/27/22 11:35 RB 12/27/22 11:27 Wound Center Nurse 1 10-RIGHT ANTERIOR SHOULDER -Combined with other wound No -Current Size (cm) - Length 4.1 -Current Size (cm) - Width 4.5 -Current Size (cm) - Depth 0.1 -Total Square Cm 18.45 -Photo Taken Yes -Tunneling No -Undermining/Tunneling No -Circular Undermining No -Exudate Amt Large -Exudate Type Serosanguineous -Wound Margin Distinct, Outline Attached -Granulation Amt Medium (34-66%) -Granulation Quality [place],Red -Slough/Fibrin Yes -Necrosis Amt Medium (34-66%) -Necrotic Tissue Type Adherent Slough -Structure Exposed N/A -Texture (Uyen-wound Skin Appearance) Assessed, Excoriation -Moisture (Uyen-wound Skin Appearance) Assessed -Color (Uyen-wound Skin Appearance) Assessed -Temperature (Uyen-wound Skin No Abnormality Appearance) (Pt Warm) -Tenderness on Palpation (Uyen-wound No Skin Appearance) -Ulcer Cleansing Wound Cleanser -Foul Odor after Cleansing No -Anesthetic Used 5% Lidocaine Gel #5 upper chest cluster -Combined with other wound No -Current Size (cm) - Length 11 -Current Size (cm) - Width 4 -Current Size (cm) - Depth 0.1 -Total Square Cm 44 -Photo Taken Yes -Tunneling No -Undermining/Tunneling No -Circular Undermining No -Exudate Amt Large -Exudate Type Serosanguineous -Wound Margin Distinct, Outline Attached -Granulation Amt Medium (34-66%) -Granulation Quality Pale -Slough/Fibrin Yes -Necrosis Amt Medium (34-66%) -Necrotic Tissue Type Adherent Slough -Structure Exposed N/A -Texture (Uyen-wound Skin Appearance) Assessed, Excoriation -Moisture (Uyen-wound Skin Appearance) Assessed -Color (Uyen-wound Skin Appearance) Assessed -Temperature (Uyen-wound Skin No Abnormality Appearance) (Pt Warm) -Tenderness on Palpation (Uyen-wound No Skin Appearance) -Ulcer Cleansing Wound Cleanser -Foul Odor after Cleansing No -Anesthetic Used 5% Lidocaine Gel Lower Limb Edema Present Yes Right Calf (cm) 51 Right Ankle (cm) 27.5 Left Calf (cm) 49 Left Ankle (cm) 32.6 WC - Nurse 2 - General Ulcer CM Notes Start: 12/27/22 11:27 Freq: Status: Active Protocol: Activity Type Activity Date Activity User E-sign Co-sign Detail Recorded Client Recorded Date Recorded By Document 12/27/22 11:51 JAYESH [id number] 12/27/22 11:54 JAYESH 12/27/22 11:51 Wound Center Nurse 2 10-RIGHT ANTERIOR SHOULDER -Time 11:52 -Correct Patient Yes -Correct Side, Site, Position Yes -Correct Procedure Yes -Procedure Performed Yes -Type of Procedure Debridement -Clinical Debridement Subcutaneous -Tissue Removed Subcutaneous -Post Debridement (cm) - Length 4.0 -Post Debridement (cm) - Width 4.6 -Post Debridement (cm) - Depth 0.1 -Total Square (Post) (cm) 18.40 -Area of Debridement (cm) - Length 4.0 -Area of Debridement (cm) - Width 4.6 -Total Square (Area) (cm) 18.40 -Tunneling No -Undermining/Tunneling No -Circular Undermining No -Wound/Ulcer Outcome Not Healed -Ulcer Cleansing Rinsed/ Irrigated with Saline -Foul Odor after Cleansing No -Bioengineered Tissue No -Bleeding Controlled with Pressure -Treatment Response Procedure Tolerated Well -Offloading No -Debridement - Subq, 1st 20sq cm No #5 upper chest cluster -Time 11:52 -Correct Patient Yes -Correct Side, Site, Position Yes -Correct Procedure Yes -Procedure Performed Yes -Type of Procedure Debridement -Clinical Debridement Subcutaneous -Tissue Removed Subcutaneous -Post Debridement (cm) - Length 5.0 -Post Debridement (cm) - Width 11.5 -Post Debridement (cm) - Depth 0.1 -Total Square (Post) (cm) 57.50 -Area of Debridement (cm) - Length 5.0 -Area of Debridement (cm) - Width 11.5 -Total Square (Area) (cm) 57.50 -Tunneling No -Undermining/Tunneling No -Circular Undermining No -Wound/Ulcer Outcome Not Healed -Ulcer Cleansing Rinsed/ Irrigated with Saline -Foul Odor after Cleansing No -Bioengineered Tissue No -Bleeding Controlled with Pressure -Treatment Response Procedure Tolerated Well -Offloading No -Debridement - Subq, 1st 20sq cm Yes -Debridement, SubQ, ea addt'l 20sq cm 3 or part thereof Pain Scale: 0-10 Numeric Is Patient Pain Free? Yes Assessment/Plan Assessment/Plan (1) Ulcer of chest wall, limited to breakdown of skin: CODE(S): L98.491 - Non-pressure chronic ulcer of skin of other sites limited to breakdown of skin (2) Ulcer of left lower extremity, limited to breakdown of skin: CODE(S): L97.921 - Non-pressure chronic ulcer of unspecified part of left lower leg limited to breakdown of skin (3) Ulcer of right lower extremity, limited to breakdown of skin: CODE(S): L97.911 - Non-pressure chronic ulcer of unspecified part of right lower leg limited to breakdown of skin (4) Skin ulcer of hand, limited to breakdown of skin: CODE(S): L98.491 - Non-pressure chronic ulcer of skin of other sites limited to breakdown of skin (5) Age-related physical debility: CODE(S): R54 - Age-related physical debility (6) Edema of both legs: CODE(S): R60.0 - Localized edema (7) Skin-picking disorder: CODE(S): F42.4 - Excoriation (skin-picking) disorder PLAN: Plan Patient evaluated at the wound healing center today. Wound care to the upper chest/anterior shoulder ulcers place moistened Collagen hydrogel, cover with adaptic and cover with gauze daily. On right anterior leg skin tears place adaptic then place 3M 2 layer wrap for compression. On the left leg place double tubigrip for compression. A wound culture was obtained on 11/14/22 of the upper chest/anterior shoulder ulcers which was positive for Staphylococcus aureus, Kocuria kristinae and Gram positive faraz. He has completed the Doxycycline. He has [facility] to help with the wound care. Stressed importance of not picking at these ulcers. He complains of itching. He is using Vistaril 25 mg PRN for itching. Which he states has been helping with the itching. Encouraged him to cut his finger nails short and wear socks to bed to help prevent him from scratching. Referred him to Dermatology for further evaluation of these multiple black scabs. He has not scheduled an appointment with them yet. Gave him the phone number of [facility] so he can make an appointment. Follow up one week.
[2023-01-03 11:15] VITALS: BP 134/78; PULSE 80; RESP 22; TEMP 36.5; BMI 40.6
--- NOTE | 2023-01-03 11:57 | PCM.WC.PN ---
History of Present Illness Date of Service: 01/03/23 Chief Complaint: Superficial ulcers to bilateral lower legs History of Wound: Patient is a 77 year old male who has multiple skin lesions scattered over his chest, arms, hands and abdomen and legs. The initial skin lesions started from a bed bugs which were causing him to scratch. He was hospitalized at the end of August for sepsis and cellulitis. He was discharged to [facility]. He has since been discharged home and has home health from [facility]. He does admit to picking at the scabbing. He has not been consistently putting anything on these areas. He is on Warfarin for history of PE, also has a history of HTN, CKD II, anemia, RAAD, bilateral leg edema and debility. He denies fever, chills, nausea, vomiting. Progress of Wound: Right anterior shoulder ulcer, upper mid to left chest cluster are smaller. They have a small amount of hypergranulation tissue present. They all have dry scabbing surrounding the ulcers. He states he is changing the dressings daily. Stressed importance of washing the ulcers with soap and water. The right anterior/medial leg ulcer skin tear is healed but fragile. Edema is improved with 3M 2 layer wraps. Objective Data Objective Data Vital Signs: Vital Signs Temp Pulse Resp BP 97.7 F L 80 22 H 134/78 H 01/03/23 11:15 01/03/23 11:15 01/03/23 11:15 01/03/23 11:15 Weight: 300 lb Body Mass Index (BMI) 40.6 Charges/Coding Procedures Integumentary 111xxx-113xx: 58556 Roxie subq tissue 20 sq cm/< Add On Codes: 72030 Roxie subq tissue add-on (x2) Debridement Note Debridement Note Wound debrided: (#5) upper chest cluster and (#10) Right anterior shoulder/chest Wound Grade/Stage: Stage II Type of Debridement: Excisional debridement Anesthesia Used: 4% Lidocaine Solution Depth: Down to and including healthy tissue and in the subcutaneous layer Percentage of wound debrided: 100 Instrument Used: 5mm curette Tissue Removed: Devitalized tissue and slough Severity: Limited To Skin Breakdown Amount of bleeding with debridement: Mild Bleeding Controlled with: Pressure and Compression and gauze Patient tolerated procedure: Patient tolerated procedure well Post-Debridement Measurements and Additional Note: Post-Debridement Measurements/Treatment WC - Nurse 1 - General Ulcer Assessment Start: 12/27/22 11:27 Freq: Status: Active Protocol: DORY Activity Type Activity Date Activity User E-sign Co-sign Detail Recorded Client Recorded Date Recorded By Document 12/27/22 11:27 RB [id number] 12/27/22 11:35 RB Document 01/03/23 11:15 DL [id number] 01/03/23 11:27 DL 12/27/22 01/03/23 11:27 11:15 WC - Today's Visit Information Type of service Follow-up Visit Follow-up Visit (Physician/CAP JEWEL PLATE ASSEMBLER (Physician/CAP JEWEL PLATE ASSEMBLER ) ) Arrival Mode Ambulatory,Cane Ambulatory Transfer Assistance None None Patient Identification Verified (Name & Yes Yes ) Patient Requires Transmission-Based No No Precautions Height and Weight Body Mass Index (BMI) 40.6 40.6 BMI Classification Obese Obese Vital Signs Temperature (97.8 F-99.1 F) 97 F L 97.7 F L Temperature Source Temporal Temporal Pulse Rate (60-100) 69 80 Pulse Location Monitor Monitor Respiratory Rate (12-18) 18 22 H Respiratory rate source Observation Observation Blood Pressure (90/60-120/80) 134/73 H 134/78 H Blood Pressure Mean (mm Hg) 93 96 Source Monitor Monitor Position Semi-Fowlers History Since Last Visit- (Skip if this is Patient's initial visit) Have you changed medications since your No No last visit? Any new allergies or adverse reactions No No Had a fall/change in ADL's that may No No increase risk of falls Signs or symptoms of abuse and/or No No neglect since last visit Have you been in the hospital since your No No last visit? Has dressing in place as prescribed Yes Yes Has compression in place as prescribed Yes Yes Has offloadiing in place as prescribed No N/A Experienced any changes in pain level or No No management Pain Scale: 0-10 Numeric Is Patient Pain Free? Yes Yes - Nurse 1 - General Ulcer Measurement Start: 12/27/22 11:27 Freq: Status: Active Protocol: Activity Type Activity Date Activity User E-sign Co-sign Detail Recorded Client Recorded Date Recorded By Document 12/27/22 11:27 RB [id number] 12/27/22 11:35 RB Document 01/03/23 11:15 DL [id number] 01/03/23 11:27 DL 12/27/22 01/03/23 11:27 11:15 Wound Center Nurse 1 10-RIGHT ANTERIOR SHOULDER -Combined with other wound No -Current Size (cm) - Length 4.1 4.1 -Current Size (cm) - Width 4.5 4.2 -Current Size (cm) - Depth 0.1 0.1 -Total Square Cm 18.45 17.22 -Photo Taken Yes No -Tunneling No -Undermining/Tunneling No -Circular Undermining No -Exudate Amt Large Medium -Exudate Type Serosanguineous Serosanguineous -Wound Margin Distinct, Distinct, Outline Outline Attached Attached -Granulation Amt Medium (34-66%) Large (67-100%) -Granulation Quality [place],Red Hyper- granulation, [place] -Slough/Fibrin Yes -Necrosis Amt Medium (34-66%) Small (1-33%) -Necrotic Tissue Type Adherent Slough Adherent Slough -Structure Exposed N/A N/A -Texture (Uyen-wound Skin Appearance) Assessed, Scarring Excoriation -Moisture (Uyen-wound Skin Appearance) Assessed No Abnormality -Color (Uyen-wound Skin Appearance) Assessed No Abnormality -Temperature (Uyen-wound Skin No Abnormality No Abnormality Appearance) (Pt Warm) (Pt Warm) -Tenderness on Palpation (Uyen-wound No No Skin Appearance) -Ulcer Cleansing Wound Cleanser Rinsed/ Irrigated with Saline -Foul Odor after Cleansing No No -Anesthetic Used 5% Lidocaine 5% Lidocaine Gel Gel #5 upper chest cluster -Combined with other wound No -Current Size (cm) - Length 11 10.6 -Current Size (cm) - Width 4 4.6 -Current Size (cm) - Depth 0.1 0.1 -Total Square Cm 44 48.76 -Photo Taken Yes Yes -Tunneling No -Undermining/Tunneling No -Circular Undermining No -Exudate Amt Large Medium -Exudate Type Serosanguineous Serosanguineous -Wound Margin Distinct, Distinct, Outline Outline Attached Attached -Granulation Amt Medium (34-66%) Large (67-100%) -Granulation Quality Pale Hyper- granulation,Red -Slough/Fibrin Yes -Necrosis Amt Medium (34-66%) Small (1-33%) -Necrotic Tissue Type Adherent Slough Adherent Slough -Structure Exposed N/A -Texture (Uyen-wound Skin Appearance) Assessed, Scarring Excoriation -Moisture (Uyen-wound Skin Appearance) Assessed No Abnormality -Color (Uyen-wound Skin Appearance) Assessed No Abnormality -Temperature (Uyen-wound Skin No Abnormality No Abnormality Appearance) (Pt Warm) (Pt Warm) -Tenderness on Palpation (Uyen-wound No No Skin Appearance) -Ulcer Cleansing Wound Cleanser Rinsed/ Irrigated with Saline -Foul Odor after Cleansing No No -Anesthetic Used 5% Lidocaine 5% Lidocaine Gel Gel Lower Limb Edema Present Yes Right Calf (cm) 51 49.5 Right Ankle (cm) 27.5 27 Left Calf (cm) 49 Left Ankle (cm) 32.6 WC - Nurse 2 - General Ulcer CM Notes Start: 12/27/22 11:27 Freq: Status: Active Protocol: Activity Type Activity Date Activity User E-sign Co-sign Detail Recorded Client Recorded Date Recorded By Document 12/27/22 11:51 [id number] 12/27/22 11:54 Document 01/03/23 11:41 [id number] 01/03/23 11:47 12/27/22 01/03/23 11:51 11:41 Wound Center Nurse 2 10-RIGHT ANTERIOR SHOULDER -Time 11:52 11:43 -Correct Patient Yes Yes -Correct Side, Site, Position Yes Yes -Correct Procedure Yes Yes -Procedure Performed Yes Yes -Type of Procedure Debridement Debridement -Clinical Debridement Subcutaneous Subcutaneous -Tissue Removed Subcutaneous Subcutaneous -Post Debridement (cm) - Length 4.0 5.5 -Post Debridement (cm) - Width 4.6 4.0 -Post Debridement (cm) - Depth 0.1 0.1 -Total Square (Post) (cm) 18.40 22.00 -Area of Debridement (cm) - Length 4.0 5.5 -Area of Debridement (cm) - Width 4.6 4.0 -Total Square (Area) (cm) 18.40 22.00 -Tunneling No No -Undermining/Tunneling No No -Circular Undermining No No -Wound/Ulcer Outcome Not Healed Not Healed -Ulcer Cleansing Rinsed/ Rinsed/ Irrigated with Irrigated with Saline Saline -Foul Odor after Cleansing No No -Bioengineered Tissue No No -Bleeding Controlled with Pressure Pressure -Treatment Response Procedure Procedure Tolerated Well Tolerated Well -Offloading No No -Debridement - Subq, 1st 20sq cm No Yes -Debridement, SubQ, ea addt'l 20sq cm 3 or part thereof #5 upper chest cluster -Time 11:52 11:44 -Correct Patient Yes Yes -Correct Side, Site, Position Yes Yes -Correct Procedure Yes Yes -Procedure Performed Yes Yes -Type of Procedure Debridement Debridement -Clinical Debridement Subcutaneous -Tissue Removed Subcutaneous Epidermis, Subcutaneous -Post Debridement (cm) - Length 5.0 9.5 -Post Debridement (cm) - Width 11.5 4.2 -Post Debridement (cm) - Depth 0.1 0.1 -Total Square (Post) (cm) 57.50 39.90 -Area of Debridement (cm) - Length 5.0 9.5 -Area of Debridement (cm) - Width 11.5 4.0 -Total Square (Area) (cm) 57.50 38.00 -Tunneling No No -Undermining/Tunneling No No -Circular Undermining No No -Wound/Ulcer Outcome Not Healed Not Healed -Ulcer Cleansing Rinsed/ Rinsed/ Irrigated with Irrigated with Saline Saline -Foul Odor after Cleansing No No -Bioengineered Tissue No No -Bleeding Controlled with Pressure Pressure -Treatment Response Procedure Procedure Tolerated Well Tolerated Well -Offloading No No -Debridement - Subq, 1st 20sq cm Yes No -Debridement, SubQ, ea addt'l 20sq cm 3 or part thereof Pain Scale: 0-10 Numeric Is Patient Pain Free? Yes Yes WC - Nurse 3 - General Ulcer D/C NN Start: 12/27/22 11:27 Freq: Status: Active Protocol: Activity Type Activity Date Activity User E-sign Co-sign Detail Recorded Client Recorded Date Recorded By Document 12/27/22 12:11 JAYESH [id number] 12/27/22 12:12 JAYESH 12/27/22 12:11 Wound Care Center Nurse 3 10-RIGHT ANTERIOR SHOULDER -Ulcer Cleansing Rinsed/ Irrigated with Saline -Primary Dressing Applied C Hydrogel ($), NonAdherent Contact Layer -Primary Dressing Covered/Secured with Dry Gauze, Secured with Tape #5 upper chest cluster -Primary Dressing Applied NonAdherent Contact Layer -Other Dressing hydrogel -Primary Dressing Covered/Secured with Dry Gauze, Secured with Tape Right -Multi-Layered Wrap Application Multi-Layer Comp - Right ($ ) Treatment Response Procedure Tolerated Well Pain Scale: 0-10 Numeric Is Patient Pain Free? Yes WC - Visit Discharge Discharge Condition Stable Ambulatory Status Ambulatory,Cane Transportation Private Auto Medication Reconcilliation completed & No provided to patient/care provider Clinical Summary of Care Provided Yes Assessment/Plan Assessment/Plan (1) Ulcer of chest wall, limited to breakdown of skin: CODE(S): L98.491 - Non-pressure chronic ulcer of skin of other sites limited to breakdown of skin (2) Ulcer of left lower extremity, limited to breakdown of skin: CODE(S): L97.921 - Non-pressure chronic ulcer of unspecified part of left lower leg limited to breakdown of skin (3) Ulcer of right lower extremity, limited to breakdown of skin: CODE(S): L97.911 - Non-pressure chronic ulcer of unspecified part of right lower leg limited to breakdown of skin (4) Skin ulcer of hand, limited to breakdown of skin: CODE(S): L98.491 - Non-pressure chronic ulcer of skin of other sites limited to breakdown of skin (5) Age-related physical debility: CODE(S): R54 - Age-related physical debility (6) Edema of both legs: CODE(S): R60.0 - Localized edema (7) Skin-picking disorder: CODE(S): F42.4 - Excoriation (skin-picking) disorder PLAN: Plan Patient evaluated at the wound healing center today. Wound care to the upper chest/anterior shoulder ulcers place moistened Collagen hydrogel, cover with adaptic and cover with gauze daily. On right anterior leg skin tear place adaptic. Stressed importance of washing the ulcers with soap and water daily at the time of the dressing changes. Compression double tubigrip bilaterally. A wound culture was obtained on 11/14/22 of the upper chest/anterior shoulder ulcers which was positive for Staphylococcus aureus, Kocuria kristinae and Gram positive faraz. He has completed the Doxycycline. He has [email or web address] to help with the wound care. Stressed importance of not picking at these ulcers. He complains of itching. He is using Vistaril 25 mg PRN for itching. Which he states has been helping with the itching. Encouraged him to cut his finger nails short and wear socks to bed to help prevent him from scratching. Referred him to Dermatology for further evaluation of these multiple black scabs. His appointment is scheduled for 02/02/22. Follow up one week.
[2023-01-10 10:59] VITALS: BP 132/89; PULSE 106; RESP 18; TEMP 36.4; BMI 40.6
--- NOTE | 2023-01-10 11:53 | PCM.WC.PN ---
History of Present Illness Date of Service: 01/10/23 Chief Complaint: Superficial ulcers to bilateral lower legs History of Wound: Patient is a 77 year old male who has multiple skin lesions scattered over his chest, arms, hands and abdomen and legs. The initial skin lesions started from a bed bugs which were causing him to scratch. He was hospitalized at the end of August for sepsis and cellulitis. He was discharged to [facility]. He has since been discharged home and has home health from [facility]. He does admit to picking at the scabbing. He has not been consistently putting anything on these areas. He is on Warfarin for history of PE, also has a history of HTN, CKD II, anemia, RAAD, bilateral leg edema and debility. He denies fever, chills, nausea, vomiting. Progress of Wound: Right anterior shoulder ulcer, upper mid to left chest cluster are smaller. They have a small amount of hypergranulation tissue present. They all have dry scabbing surrounding the ulcers even with the collagen hydrogel and adpatic. He states he is changing the dressings daily. Edema is much worse this week. +4 bilaterally with new wounds on bilateral lower legs. They started as blisters then opened up and now are wounds. He didn't wear his compression for a couple days. Objective Data Objective Data Vital Signs: Vital Signs Temp Pulse Resp BP 97.6 F L 106 H 18 132/89 H 01/10/23 10:59 01/10/23 10:59 01/10/23 10:59 01/10/23 10:59 Weight: 300 lb Body Mass Index (BMI) 40.6 Charges/Coding Procedures Integumentary 111xxx-113xx: 28051 Roxie subq tissue 20 sq cm/< Add On Codes: 19246 Roxie subq tissue add-on (x9) Debridement Note Debridement Note Wound debrided: (#5) upper chest cluster and (#10) Right anterior shoulder/chest Wound Grade/Stage: Stage II Type of Debridement: Excisional debridement Anesthesia Used: 4% Lidocaine Solution Depth: Down to and including healthy tissue and in the subcutaneous layer Percentage of wound debrided: 100 Instrument Used: 5mm curette Tissue Removed: Devitalized tissue and slough Severity: Limited To Skin Breakdown Amount of bleeding with debridement: Mild Bleeding Controlled with: Pressure and Compression and gauze Patient tolerated procedure: Patient tolerated procedure well Post-Debridement Measurements and Additional Note: Post-Debridement Measurements/Treatment WC - Nurse 1 - General Ulcer Assessment Start: 12/27/22 11:27 Freq: Status: Active Protocol: DORY Activity Type Activity Date Activity User E-sign Co-sign Detail Recorded Client Recorded Date Recorded By Document 12/27/22 11:27 RB [id number] 12/27/22 11:35 RB Document 01/03/23 11:15 DL [id number] 01/03/23 11:27 DL Document 01/10/23 10:59 RB [id number] 01/10/23 11:15 RB 12/27/22 01/03/23 01/10/23 11:27 11:15 10:59 - Today's Visit Information Type of service Follow-up Visit Follow-up Visit Nurse-only (Physician/SIGNALING PROJECT ENGINEER (Physician/SIGNALING PROJECT ENGINEER Visit ) ) Arrival Mode Ambulatory,Cane Ambulatory Ambulatory,Cane Transfer Assistance None None None Patient Identification Verified (Name & Yes Yes Yes ) Patient Requires Transmission-Based No No No Precautions Height and Weight Body Mass Index (BMI) 40.6 40.6 40.6 BMI Classification Obese Obese Obese Vital Signs Temperature (97.8 F-99.1 F) 97 F L 97.7 F L 97.6 F L Temperature Source Temporal Temporal Temporal Pulse Rate (60-100) 69 80 106 H Pulse Location Monitor Monitor Monitor Respiratory Rate (12-18) 18 22 H 18 Respiratory rate source Observation Observation Observation Blood Pressure (90/60-120/80) 134/73 H 134/78 H 132/89 H Blood Pressure Mean (mm Hg) 93 96 103 Source Monitor Monitor Monitor Position Semi-Fowlers Sitting Blood Pressure Location Left Arm History Since Last Visit- (Skip if this is Patient's initial visit) Have you changed medications since your No No No last visit? Any new allergies or adverse reactions No No No Had a fall/change in ADL's that may No No No increase risk of falls Signs or symptoms of abuse and/or No No No neglect since last visit Have you been in the hospital since your No No No last visit? Has dressing in place as prescribed Yes Yes Yes Has compression in place as prescribed Yes Yes Yes Has offloadiing in place as prescribed No N/A No Experienced any changes in pain level or No No No management Pain Scale: 0-10 Numeric Is Patient Pain Free? Yes Yes Yes WC - Nurse 1 - General Ulcer Measurement Start: 12/27/22 11:27 Freq: Status: Active Protocol: Activity Type Activity Date Activity User E-sign Co-sign Detail Recorded Client Recorded Date Recorded By Document 12/27/22 11:27 RB [id number] 12/27/22 11:35 RB Document 01/03/23 11:15 DL [id number] 01/03/23 11:27 DL Document 01/10/23 10:59 RB [id number] 01/10/23 11:15 RB 12/27/22 01/03/23 01/10/23 11:27 11:15 10:59 Wound Center Nurse 1 14.RLE cluster -Combined with other wound No -Current Size (cm) - Length 7 -Current Size (cm) - Width 6 -Current Size (cm) - Depth 0.1 -Total Square Cm 42 -Photo Taken Yes -Tunneling No -Undermining/Tunneling No -Circular Undermining No -Exudate Amt Large -Exudate Type Serosanguineous -Wound Margin Distinct, Outline Attached -Granulation Amt Medium (34-66%) -Granulation Quality [place] -Slough/Fibrin Yes -Necrosis Amt Medium (34-66%) -Necrotic Tissue Type Adherent Slough -Structure Exposed N/A -Texture ([place]-wound Skin Appearance) Assessed, Localized Edema -Moisture ([place]yen-wound Skin Appearance) Assessed -Color ([place]yen-wound Skin Appearance) Assessed -Temperature ([place]yen-wound Skin No Abnormality Appearance) (Pt Warm) -Tenderness on Palpation (Uyen-wound No Skin Appearance) -Ulcer Cleansing Wound Cleanser -Foul Odor after Cleansing No -Anesthetic Used 5% Lidocaine Gel 13. LLE lateral -Combined with other wound No -Current Size (cm) - Length 16 -Current Size (cm) - Width 17 -Current Size (cm) - Depth 0.1 -Total Square Cm 272 -Photo Taken Yes -Tunneling No -Undermining/Tunneling No -Circular Undermining No -Exudate Amt Large -Exudate Type Serosanguineous -Wound Margin Distinct, Outline Attached -Granulation Amt Medium (34-66%) -Granulation Quality [place] -Slough/Fibrin Yes -Necrosis Amt Medium (34-66%) -Necrotic Tissue Type Adherent Slough -Structure Exposed N/A -Texture (Uyen-wound Skin Appearance) Assessed, Localized Edema -Moisture (Uyen-wound Skin Appearance) Assessed -Color (Uyen-wound Skin Appearance) Assessed -Temperature (Uyen-wound Skin No Abnormality Appearance) (Pt Warm) -Tenderness on Palpation (Uyen-wound No Skin Appearance) -Ulcer Cleansing Wound Cleanser -Foul Odor after Cleansing No -Anesthetic Used 4% Lidocaine Solution 10-RIGHT ANTERIOR SHOULDER -Combined with other wound No No -Current Size (cm) - Length 4.1 4.1 4 -Current Size (cm) - Width 4.5 4.2 5.5 -Current Size (cm) - Depth 0.1 0.1 0.1 -Total Square Cm 18.45 17.22 22.0 -Photo Taken Yes No Yes -Tunneling No No -Undermining/Tunneling No No -Circular Undermining No No -Exudate Amt Large Medium Large -Exudate Type Serosanguineous Serosanguineous Serosanguineous -Wound Margin Distinct, Distinct, Distinct, Outline Outline Outline Attached Attached Attached -Granulation Amt Medium (34-66%) Large (67-100%) Medium (34-66%) -Granulation Quality [place],Red Hyper- [place] granulation, [place] -Slough/Fibrin Yes Yes -Necrosis Amt Medium (34-66%) Small (1-33%) Medium (34-66%) -Necrotic Tissue Type Adherent Slough Adherent Slough Adherent Slough -Structure Exposed N/A N/A N/A -Texture (Uyen-wound Skin Appearance) Assessed, Scarring Assessed, Excoriation Scarring -Moisture (Uyen-wound Skin Appearance) Assessed No Abnormality Assessed -Color (Uyen-wound Skin Appearance) Assessed No Abnormality Assessed -Temperature ([place]-wound Skin No Abnormality No Abnormality No Abnormality Appearance) (Pt Warm) (Pt Warm) (Pt Warm) -Tenderness on Palpation (Uyen-wound No No No Skin Appearance) -Ulcer Cleansing Wound Cleanser Rinsed/ Wound Cleanser Irrigated with Saline -Foul Odor after Cleansing No No No -Anesthetic Used 5% Lidocaine 5% Lidocaine 5% Lidocaine Gel Gel Gel #5 upper chest cluster -Combined with other wound No No -Current Size (cm) - Length 11 10.6 12 -Current Size (cm) - Width 4 4.6 3 -Current Size (cm) - Depth 0.1 0.1 0.1 -Total Square Cm 44 48.76 36 -Photo Taken Yes Yes Yes -Tunneling No No -Undermining/Tunneling No No -Circular Undermining No No -Exudate Amt Large Medium Large -Exudate Type Serosanguineous Serosanguineous Serosanguineous -Wound Margin Distinct, Distinct, Distinct, Outline Outline Outline Attached Attached Attached -Granulation Amt Medium (34-66%) Large (67-100%) Medium (34-66%) -Granulation Quality Pale Hyper- [place] granulation,Red -Slough/Fibrin Yes Yes -Necrosis Amt Medium (34-66%) Small (1-33%) Medium (34-66%) -Necrotic Tissue Type Adherent Slough Adherent Slough Adherent Slough -Structure Exposed N/A N/A -Texture (Uyen-wound Skin Appearance) Assessed, Scarring Assessed, Excoriation Scarring -Moisture (Uyen-wound Skin Appearance) Assessed No Abnormality Assessed -Color (Uyen-wound Skin Appearance) Assessed No Abnormality Assessed -Temperature ([place]-wound Skin No Abnormality No Abnormality No Abnormality Appearance) (Pt Warm) (Pt Warm) (Pt Warm) -Tenderness on Palpation (Uyen-wound No No No Skin Appearance) -Ulcer Cleansing Wound Cleanser Rinsed/ Rinsed/ Irrigated with Irrigated with Saline Saline -Foul Odor after Cleansing No No No -Anesthetic Used 5% Lidocaine 5% Lidocaine 5% Lidocaine Gel Gel Gel Lower Limb Edema Present Yes Yes Right Calf (cm) 51 49.5 64 Right Ankle (cm) 27.5 27 35.2 Left Calf (cm) 49 61 Left Ankle (cm) 32.6 35.5 WC - Nurse 2 - General Ulcer CM Notes Start: 12/27/22 11:27 Freq: Status: Active Protocol: Activity Type Activity Date Activity User E-sign Co-sign Detail Recorded Client Recorded Date Recorded By Document 12/27/22 11:51 JAYESH [id number] 12/27/22 11:54 Document 01/03/23 11:41 JAYESH [id number] 01/03/23 11:47 Document 01/10/23 11:32 JAYESH [id number] 01/10/23 11:44 JAYESH 03/11/2001/03/23 01/10/23 11:51 11:41 11:32 Wound Center Nurse 2 14.RLE cluster -Time 11:39 -Correct Patient Yes -Correct Side, Site, Position Yes -Correct Procedure Yes -Procedure Performed Yes -Type of Procedure Debridement -Clinical Debridement Subcutaneous -Tissue Removed Subcutaneous -Post Debridement (cm) - Length 5.5 -Post Debridement (cm) - Width 13.7 -Post Debridement (cm) - Depth 0.1 -Total Square (Post) (cm) 75.35 -Area of Debridement (cm) - Length 5.5 -Area of Debridement (cm) - Width 13.7 -Total Square (Area) (cm) 75.35 -Tunneling No -Undermining/Tunneling No -Circular Undermining No -Wound/Ulcer Outcome Not Healed -Ulcer Cleansing Rinsed/ Irrigated with Saline -Foul Odor after Cleansing No -Bioengineered Tissue No -Bleeding Controlled with Pressure -Treatment Response Procedure Tolerated Well -Offloading No -Debridement - Subq, 1st 20sq cm No 13. LLE lateral -Time 11:40 -Correct Patient Yes -Correct Side, Site, Position Yes -Correct Procedure Yes -Procedure Performed Yes -Type of Procedure Debridement -Clinical Debridement Subcutaneous -Tissue Removed Subcutaneous -Post Debridement (cm) - Length 7.0 -Post Debridement (cm) - Width 6.5 -Post Debridement (cm) - Depth 0.1 -Total Square (Post) (cm) 45.50 -Area of Debridement (cm) - Length 7.0 -Area of Debridement (cm) - Width 6.5 -Total Square (Area) (cm) 45.50 -Undermining/Tunneling No -Circular Undermining No -Wound/Ulcer Outcome Not Healed -Ulcer Cleansing Rinsed/ Irrigated with Saline -Foul Odor after Cleansing No -Bioengineered Tissue No -Bleeding Controlled with Pressure -Treatment Response Procedure Tolerated Well -Offloading No -Debridement - Subq, 1st 20sq cm No 10-RIGHT ANTERIOR SHOULDER -Time 11:52 11:43 11:37 -Correct Patient Yes Yes Yes -Correct Side, Site, Position Yes Yes Yes -Correct Procedure Yes Yes Yes -Procedure Performed Yes Yes Yes -Type of Procedure Debridement Debridement Debridement -Clinical Debridement Subcutaneous Subcutaneous Subcutaneous -Tissue Removed Subcutaneous Subcutaneous Subcutaneous -Post Debridement (cm) - Length 4.0 5.5 4.2 -Post Debridement (cm) - Width 4.6 4.0 5.6 -Post Debridement (cm) - Depth 0.1 0.1 0.1 -Total Square (Post) (cm) 18.40 22.00 23.52 -Area of Debridement (cm) - Length 4.0 5.5 4.2 -Area of Debridement (cm) - Width 4.6 4.0 5.6 -Total Square (Area) (cm) 18.40 22.00 23.52 -Tunneling No No No -Undermining/Tunneling No No No -Circular Undermining No No No -Wound/Ulcer Outcome Not Healed Not Healed Not Healed -Ulcer Cleansing Rinsed/ Rinsed/ Rinsed/ Irrigated with Irrigated with Irrigated with Saline Saline Saline -Foul Odor after Cleansing No No No -Bioengineered Tissue No No No -Bleeding Controlled with Pressure Pressure Pressure -Treatment Response Procedure Procedure Procedure Tolerated Well Tolerated Well Tolerated Well -Offloading No No No -Debridement - Subq, 1st 20sq cm No Yes No -Debridement, SubQ, ea addt'l 20sq cm 3 or part thereof #5 upper chest cluster -Time 11:52 11:44 11:41 -Correct Patient Yes Yes Yes -Correct Side, Site, Position Yes Yes Yes -Correct Procedure Yes Yes Yes -Procedure Performed Yes Yes Yes -Type of Procedure Debridement Debridement Debridement -Clinical Debridement Subcutaneous Subcutaneous -Tissue Removed Subcutaneous Epidermis, Subcutaneous Subcutaneous -Post Debridement (cm) - Length 5.0 9.5 3.2 -Post Debridement (cm) - Width 11.5 4.2 12.0 -Post Debridement (cm) - Depth 0.1 0.1 0.1 -Total Square (Post) (cm) 57.50 39.90 38.40 -Area of Debridement (cm) - Length 5.0 9.5 3.2 -Area of Debridement (cm) - Width 11.5 4.0 12 -Total Square (Area) (cm) 57.50 38.00 38.4 -Tunneling No No No -Undermining/Tunneling No No No -Circular Undermining No No No -Wound/Ulcer Outcome Not Healed Not Healed Not Healed -Ulcer Cleansing Rinsed/ Rinsed/ Rinsed/ Irrigated with Irrigated with Irrigated with Saline Saline Saline -Foul Odor after Cleansing No No No -Bioengineered Tissue No No No -Bleeding Controlled with Pressure Pressure Pressure -Treatment Response Procedure Procedure Procedure Tolerated Well Tolerated Well Tolerated Well -Offloading No No No -Debridement - Subq, 1st 20sq cm Yes No Yes -Debridement, SubQ, ea addt'l 20sq cm 3 9 or part thereof Pain Scale: 0-10 Numeric Is Patient Pain Free? Yes Yes Yes - Nurse 3 - General Ulcer D/C NN Start: 12/27/22 11:27 Freq: Status: Active Protocol: Activity Type Activity Date Activity User E-sign Co-sign Detail Recorded Client Recorded Date Recorded By Document 12/27/22 12:11 JF [id number] 12/27/22 12:12 JF Document 01/03/23 11:55 RB [id number] 01/03/23 11:58 RB 12/27/22 01/03/23 12:11 11:55 Wound Care Center Nurse 3 10-RIGHT ANTERIOR SHOULDER -Ulcer Cleansing Rinsed/ Rinsed/ Irrigated with Irrigated with Saline Saline -Primary Dressing Applied C Hydrogel ($), NonAdherent NonAdherent Contact Layer Contact Layer -Other Dressing hydrogel -Primary Dressing Covered/Secured with Dry Gauze, Dry Gauze, Secured with Secured with Tape Tape #5 upper chest cluster -Ulcer Cleansing Rinsed/ Irrigated with Saline -Primary Dressing Applied NonAdherent NonAdherent Contact Layer Contact Layer -Other Dressing hydrogel hydrogel -Primary Dressing Covered/Secured with Dry Gauze, Dry Gauze, Secured with Secured with Tape Tape Right -Multi-Layered Wrap Application Multi-Layer Comp - Right ($ ) -Tubular Bandage Double Layer -Size of Tubigrip Used Size F -Size F ($) 2 Treatment Response Procedure Tolerated Well Pain Scale: 0-10 Numeric Is Patient Pain Free? Yes Yes - Visit Discharge Discharge Condition Stable Stable Ambulatory Status Ambulatory,Cane Ambulatory,Cane Transportation Private Auto Private Auto Medication Reconcilliation completed & No No provided to patient/care provider Clinical Summary of Care Provided Yes Yes Additional Wound Wound debrided: Right and left lateral leg ulcer clusters Wound Grade/Stage: Stage II Type of Debridement: Excisional debridement Anesthesia Used: 5% Lidocaine Gel Depth: Down to and including healthy tissue and in the subcutaneous layer Percentage of wound debrided: 100 Instrument Used: 7mm curette Tissue Removed: Devitalized tissue and slough Severity: Fat Layer Exposed Amount of bleeding with debridement: Mild Bleeding Controlled with: Pressure and Compression and gauze Patient tolerated procedure: Patient tolerated procedure well Assessment/Plan Assessment/Plan (1) Ulcer of chest wall, limited to breakdown of skin: CODE(S): L98.491 - Non-pressure chronic ulcer of skin of other sites limited to breakdown of skin (2) Ulcer of left lower extremity, limited to breakdown of skin: CODE(S): L97.921 - Non-pressure chronic ulcer of unspecified part of left lower leg limited to breakdown of skin (3) Ulcer of right lower extremity, limited to breakdown of skin: CODE(S): L97.911 - Non-pressure chronic ulcer of unspecified part of right lower leg limited to breakdown of skin (4) Skin ulcer of hand, limited to breakdown of skin: CODE(S): L98.491 - Non-pressure chronic ulcer of skin of other sites limited to breakdown of skin (5) Age-related physical debility: CODE(S): R54 - Age-related physical debility (6) Edema of both legs: CODE(S): R60.0 - Localized edema (7) Skin-picking disorder: CODE(S): F42.4 - Excoriation (skin-picking) disorder PLAN: Plan Patient evaluated at the wound healing center today. Edema is significantly worse today on bilateral lower extremities. He states he didn't wear his compression for a couple days. He denies history of CHF but in his chart has a history of cor pulmonale, acute. He denies SOB. Echo done 09/20/22 had EF 55%. He is on Lasix. Will double his lasix dose in the AM only for 2 days to see if this will help get some of this leg edema down. Wound care to the upper chest/anterior shoulder ulcers place moistened Collagen hydrogel, cover with adaptic and cover with gauze daily. Wash the ulcers with soap and water daily at the time of the dressing changes. To the right lateral leg cluster and left lateral leg wound place Silvercel with a super absorber. Compression will be a light 3M 2 layer wraps bilaterally. He will return on Sunday for a nurse visit to have the wraps changed. A wound culture was obtained on 11/14/22 of the upper chest/anterior shoulder ulcers which was positive for Staphylococcus aureus, Kocuria kristinae and Gram positive faraz. He has completed the Doxycycline. He has [facility] to help with the wound care. Stressed importance of not picking at these ulcers. He complains of itching. He is using Vistaril 25 mg PRN for itching. Which he states has been helping with the itching. Encouraged him to cut his finger nails short and wear socks to bed to help prevent him from scratching. Keep legs elevated when sitting. Encouraged to sleep in a bed, but he has slept in a recliner for 30 years. Referred him to Dermatology for further evaluation of these multiple black scabs. His appointment is scheduled for 02/02/22. Hopefully they will biopsy these ulcers. Follow up one week.
[2023-01-15 08:59] VITALS: BP 132/68; PULSE 74; TEMP 36.2; BMI 40.6
[2023-01-17 11:07] VITALS: BP 135/76; PULSE 72; RESP 18; TEMP 36.4; BMI 40.6
--- NOTE | 2023-01-17 14:27 | PCM.WC.PN ---
History of Present Illness Date of Service: 01/17/23 Chief Complaint: Superficial ulcers to bilateral lower legs History of Wound: Patient is a 78 year old male who has multiple skin lesions scattered over his chest, arms, hands and abdomen and legs. The initial skin lesions started from a bed bugs which were causing him to scratch. He was hospitalized at the end of August for sepsis and cellulitis. He was discharged to [facility]. He has since been discharged home and has home health from [facility]. He does admit to picking at the scabbing. He has not been consistently putting anything on these areas. He is on Warfarin for history of PE, also has a history of HTN, CKD II, anemia, RAAD, bilateral leg edema and debility. He denies fever, chills, nausea, vomiting. Progress of Wound: Right anterior shoulder ulcer, upper mid to left chest cluster are smaller, and will separate the cluster to individual ulcers. They have a small amount of hypergranulation tissue present. They all have dry scabbing surrounding the ulcers even with the collagen hydrogel and adaptic. He states he is changing the dressings daily. Edema is much improved since starting the 3M 2 layer wraps. Objective Data Objective Data Vital Signs: Vital Signs Temp Pulse Resp BP 97.6 F L 72 18 135/76 H 01/17/23 11:07 01/17/23 11:07 01/17/23 11:07 01/17/23 11:07 Weight: 300 lb Body Mass Index (BMI) 40.6 Charges/Coding Procedures Integumentary 111xxx-113xx: [id number] Roxie subq tissue 20 sq cm/< Add On Codes: 35077 Roxie subq tissue add-on (x3) Debridement Note Debridement Note Wound debrided: (#5) mid chest, (#10) Right anterior shoulder, (#15) left chest Wound Grade/Stage: Stage II Type of Debridement: Excisional debridement Anesthesia Used: 4% Lidocaine Solution Depth: Down to and including healthy tissue and in the subcutaneous layer Percentage of wound debrided: 100 Instrument Used: 5mm curette Tissue Removed: Devitalized tissue and slough Severity: Limited To Skin Breakdown Amount of bleeding with debridement: Mild Bleeding Controlled with: Pressure and Compression and gauze Patient tolerated procedure: Patient tolerated procedure well Debridement Free Text: All three ulcers have hypergranulation Post-Debridement Measurements and Additional Note: Post-Debridement Measurements/Treatment WC - Nurse 1 - General Ulcer Assessment Start: 12/27/22 11:27 Freq: Status: Active Protocol: DORY Activity Type Activity Date Activity User E-sign Co-sign Detail Recorded Client Recorded Date Recorded By Document 12/27/22 11:27 RB [id number] 12/27/22 11:35 RB Document 01/03/23 11:15 DL [id number] 01/03/23 11:27 DL Document 01/10/23 10:59 RB [id number] 01/10/23 11:15 RB Document 01/15/23 08:59 AK [id number] 01/15/23 09:01 AK Document 01/17/23 11:07 RB [id number] 01/17/23 11:29 RB 12/27/22 01/03/23 01/10/23 11:27 11:15 10:59 WC - Today's Visit Information Type of service Follow-up Visit Follow-up Visit Nurse-only (Physician/COMPOSITE BOND WORKER (Physician/COMPOSITE BOND WORKER Visit ) ) Arrival Mode Ambulatory,Cane Ambulatory Ambulatory,Cane Transfer Assistance None None None Patient Identification Verified (Name & Yes Yes Yes ) Patient Requires Transmission-Based No No No Precautions Safety Precautions Height and Weight Body Mass Index (BMI) 40.6 40.6 40.6 BMI Classification Obese Obese Obese Vital Signs Temperature (97.8 F-99.1 F) 97 F L 97.7 F L 97.6 F L Temperature Source Temporal Temporal Temporal Pulse Rate (60-100) 69 80 106 H Pulse Location Monitor Monitor Monitor Respiratory Rate (12-18) 18 22 H 18 Respiratory rate source Observation Observation Observation Blood Pressure (90/60-120/80) 134/73 H 134/78 H 132/89 H Blood Pressure Mean (mm Hg) 93 96 103 Source Monitor Monitor Monitor Position Semi-Fowlers Sitting Blood Pressure Location Left Arm History Since Last Visit- (Skip if this is Patient's initial visit) Have you changed medications since your No No No last visit? Any new allergies or adverse reactions No No No Had a fall/change in ADL's that may No No No increase risk of falls Signs or symptoms of abuse and/or No No No neglect since last visit Have you been in the hospital since your No No No last visit? Has dressing in place as prescribed Yes Yes Yes Has compression in place as prescribed Yes Yes Yes Has offloadiing in place as prescribed No N/A No Experienced any changes in pain level or No No No management Left Footwear Right Footwear Pain Scale: 0-10 Numeric Is Patient Pain Free? Yes Yes Yes 01/15/23 01/17/23 08:59 11:07 - Today's Visit Information Type of service Nurse-only Follow-up Visit Visit (Physician/COMPOSITE BOND WORKER ) Arrival Mode Ambulatory,Cane Ambulatory Transfer Assistance None Patient Identification Verified (Name & Yes Yes ) Patient Requires Transmission-Based No No Precautions Safety Precautions NA Height and Weight Body Mass Index (BMI) 40.6 40.6 BMI Classification Obese Obese Vital Signs Temperature (97.8 F-99.1 F) 97.1 F L 97.6 F L Temperature Source Temporal Temporal Pulse Rate (60-100) 74 72 Pulse Location Monitor Monitor Respiratory Rate (12-18) 18 Respiratory rate source Observation Blood Pressure (90/60-120/80) 132/68 H 135/76 H Blood Pressure Mean (mm Hg) 89 95 Source Monitor Monitor Position Semi-Fowlers Blood Pressure Location Left Arm History Since Last Visit- (Skip if this is Patient's initial visit) Have you changed medications since your No No last visit? Any new allergies or adverse reactions No No Had a fall/change in ADL's that may No No increase risk of falls Signs or symptoms of abuse and/or No No neglect since last visit Have you been in the hospital since your No No last visit? Has dressing in place as prescribed Yes Yes Has compression in place as prescribed Yes Yes Has offloadiing in place as prescribed N/A No Experienced any changes in pain level or No No management Left Footwear Regular Shoe Right Footwear Regular Shoe Pain Scale: 0-10 Numeric Is Patient Pain Free? Yes Yes - Nurse 1 - General Ulcer Measurement Start: 12/27/22 11:27 Freq: Status: Active Protocol: Activity Type Activity Date Activity User E-sign Co-sign Detail Recorded Client Recorded Date Recorded By Document 12/27/22 11:27 RB [id number] 12/27/22 11:35 RB Document 01/03/23 11:15 DL [id number] 01/03/23 11:27 DL Document 01/10/23 10:59 RB [id number] 01/10/23 11:15 RB Document 01/17/23 11:07 RB [id number] 01/17/23 11:29 RB 12/27/22 01/03/23 01/10/23 11:27 11:15 10:59 Wound Center Nurse 1 14.RLE cluster -Combined with other wound No -Current Size (cm) - Length 7 -Current Size (cm) - Width 6 -Current Size (cm) - Depth 0.1 -Total Square Cm 42 -Photo Taken Yes -Tunneling No -Undermining/Tunneling No -Circular Undermining No -Exudate Amt Large -Exudate Type Serosanguineous -Wound Margin Distinct, Outline Attached -Granulation Amt Medium (34-66%) -Granulation Quality [place] -Slough/Fibrin Yes -Necrosis Amt Medium (34-66%) -Necrotic Tissue Type Adherent Slough -Structure Exposed N/A -Texture (Uyen-wound Skin Appearance) Assessed, Localized Edema -Moisture (Uyen-wound Skin Appearance) Assessed -Color (Uyen-wound Skin Appearance) Assessed -Temperature (Uyen-wound Skin No Abnormality Appearance) (Pt Warm) -Tenderness on Palpation (Uyen-wound No Skin Appearance) -Ulcer Cleansing Wound Cleanser -Foul Odor after Cleansing No -Anesthetic Used 5% Lidocaine Gel 13. LLE lateral -Combined with other wound No -Current Size (cm) - Length 16 -Current Size (cm) - Width 17 -Current Size (cm) - Depth 0.1 -Total Square Cm 272 -Photo Taken Yes -Tunneling No -Undermining/Tunneling No -Circular Undermining No -Exudate Amt Large -Exudate Type Serosanguineous -Wound Margin Distinct, Outline Attached -Granulation Amt Medium (34-66%) -Granulation Quality [place] -Slough/Fibrin Yes -Necrosis Amt Medium (34-66%) -Necrotic Tissue Type Adherent Slough -Structure Exposed N/A -Texture (Uyen-wound Skin Appearance) Assessed, Localized Edema -Moisture (Uyen-wound Skin Appearance) Assessed -Color (Uyen-wound Skin Appearance) Assessed -Temperature (Uyen-wound Skin No Abnormality Appearance) (Pt Warm) -Tenderness on Palpation (Uyen-wound No Skin Appearance) -Ulcer Cleansing Wound Cleanser -Foul Odor after Cleansing No -Anesthetic Used 4% Lidocaine Solution 10-RIGHT ANTERIOR SHOULDER -Combined with other wound No No -Current Size (cm) - Length 4.1 4.1 4 -Current Size (cm) - Width 4.5 4.2 5.5 -Current Size (cm) - Depth 0.1 0.1 0.1 -Total Square Cm 18.45 17.22 22.0 -Photo Taken Yes No Yes -Tunneling No No -Undermining/Tunneling No No -Circular Undermining No No -Exudate Amt Large Medium Large -Exudate Type Serosanguineous Serosanguineous Serosanguineous -Wound Margin Distinct, Distinct, Distinct, Outline Outline Outline Attached Attached Attached -Granulation Amt Medium (34-66%) Large (67-100%) Medium (34-66%) -Granulation Quality [place],Red Hyper- [place] granulation, [place] -Slough/Fibrin Yes Yes -Necrosis Amt Medium (34-66%) Small (1-33%) Medium (34-66%) -Necrotic Tissue Type Adherent Slough Adherent Slough Adherent Slough -Structure Exposed N/A N/A N/A -Texture (Uyen-wound Skin Appearance) Assessed, Scarring Assessed, Excoriation Scarring -Moisture (Uyen-wound Skin Appearance) Assessed No Abnormality Assessed -Color (Uyen-wound Skin Appearance) Assessed No Abnormality Assessed -Temperature (Uyen-wound Skin No Abnormality No Abnormality No Abnormality Appearance) (Pt Warm) (Pt Warm) (Pt Warm) -Tenderness on Palpation (Uyen-wound No No No Skin Appearance) -Ulcer Cleansing Wound Cleanser Rinsed/ Wound Cleanser Irrigated with Saline -Foul Odor after Cleansing No No No -Anesthetic Used 5% Lidocaine 5% Lidocaine 5% Lidocaine Gel Gel Gel #5 mid chest -Combined with other wound No No -Current Size (cm) - Length 11 10.6 12 -Current Size (cm) - Width 4 4.6 3 -Current Size (cm) - Depth 0.1 0.1 0.1 -Total Square Cm 44 48.76 36 -Photo Taken Yes Yes Yes -Tunneling No No -Undermining/Tunneling No No -Circular Undermining No No -Exudate Amt Large Medium Large -Exudate Type Serosanguineous Serosanguineous Serosanguineous -Wound Margin Distinct, Distinct, Distinct, Outline Outline Outline Attached Attached Attached -Granulation Amt Medium (34-66%) Large (67-100%) Medium (34-66%) -Granulation Quality [place] Hyper- [place] granulation,Red -Slough/Fibrin Yes Yes -Necrosis Amt Medium (34-66%) Small (1-33%) Medium (34-66%) -Necrotic Tissue Type Adherent Slough Adherent Slough Adherent Slough -Structure Exposed N/A N/A -Texture (Uyen-wound Skin Appearance) Assessed, Scarring Assessed, Excoriation Scarring -Moisture (Uyen-wound Skin Appearance) Assessed No Abnormality Assessed -Color (Uyen-wound Skin Appearance) Assessed No Abnormality Assessed -Temperature (Uyen-wound Skin No Abnormality No Abnormality No Abnormality Appearance) (Pt Warm) (Pt Warm) (Pt Warm) -Tenderness on Palpation (Uyen-wound No No No Skin Appearance) -Ulcer Cleansing Wound Cleanser Rinsed/ Rinsed/ Irrigated with Irrigated with Saline Saline -Foul Odor after Cleansing No No No -Anesthetic Used 5% Lidocaine 5% Lidocaine 5% Lidocaine Gel Gel Gel Lower Limb Edema Present Yes Yes Right Calf (cm) 51 49.5 64 Right Ankle (cm) 27.5 27 35.2 Left Calf (cm) 49 61 Left Ankle (cm) 32.6 35.5 01/17/23 11:07 Wound Center Nurse 1 14.RLE cluster -Combined with other wound No -Current Size (cm) - Length 15 -Current Size (cm) - Width 12 -Current Size (cm) - Depth 0.1 -Total Square Cm 180 -Photo Taken -Tunneling No -Undermining/Tunneling No -Circular Undermining No -Exudate Amt Medium -Exudate Type Serosanguineous -Wound Margin Distinct, Outline Attached -Granulation Amt Medium (34-66%) -Granulation Quality [place] -Slough/Fibrin Yes -Necrosis Amt Medium (34-66%) -Necrotic Tissue Type Adherent Slough -Structure Exposed N/A -Texture (Uyen-wound Skin Appearance) Assessed, Excoriation -Moisture (Uyen-wound Skin Appearance) Assessed -Color (Uyen-wound Skin Appearance) Assessed -Temperature (Uyen-wound Skin No Abnormality Appearance) (Pt Warm) -Tenderness on Palpation (Uyen-wound No Skin Appearance) -Ulcer Cleansing Wound Cleanser -Foul Odor after Cleansing No -Anesthetic Used 5% Lidocaine Gel 13. LLE lateral -Combined with other wound No -Current Size (cm) - Length 5.2 -Current Size (cm) - Width 4 -Current Size (cm) - Depth 0.1 -Total Square Cm 20.8 -Photo Taken -Tunneling No -Undermining/Tunneling No -Circular Undermining No -Exudate Amt Medium -Exudate Type Serosanguineous -Wound Margin Distinct, Outline Attached -Granulation Amt Medium (34-66%) -Granulation Quality [place] -Slough/Fibrin Yes -Necrosis Amt Medium (34-66%) -Necrotic Tissue Type Adherent Slough -Structure Exposed N/A -Texture (Uyen-wound Skin Appearance) Assessed, Excoriation -Moisture (Uyen-wound Skin Appearance) Assessed -Color (Uyen-wound Skin Appearance) Assessed -Temperature (Uyen-wound Skin No Abnormality Appearance) (Pt Warm) -Tenderness on Palpation (Uyen-wound No Skin Appearance) -Ulcer Cleansing Wound Cleanser -Foul Odor after Cleansing No -Anesthetic Used 5% Lidocaine Gel 10-RIGHT ANTERIOR SHOULDER -Combined with other wound No -Current Size (cm) - Length 4 -Current Size (cm) - Width 4 -Current Size (cm) - Depth 0.1 -Total Square Cm 16 -Photo Taken -Tunneling No -Undermining/Tunneling No -Circular Undermining No -Exudate Amt Medium -Exudate Type Serosanguineous -Wound Margin Distinct, Outline Attached -Granulation Amt Medium (34-66%) -Granulation Quality [place] -Slough/Fibrin Yes -Necrosis Amt Medium (34-66%) -Necrotic Tissue Type Adherent Slough -Structure Exposed N/A -Texture (Uyen-wound Skin Appearance) Assessed, Excoriation -Moisture (Uyen-wound Skin Appearance) Assessed -Color (Uyen-wound Skin Appearance) Assessed -Temperature (Uyen-wound Skin No Abnormality Appearance) (Pt Warm) -Tenderness on Palpation (Uyen-wound No Skin Appearance) -Ulcer Cleansing Wound Cleanser -Foul Odor after Cleansing No -Anesthetic Used 5% Lidocaine Gel #5 mid chest -Combined with other wound No -Current Size (cm) - Length 11 -Current Size (cm) - Width 4 -Current Size (cm) - Depth 0.1 -Total Square Cm 44 -Photo Taken -Tunneling No -Undermining/Tunneling No -Circular Undermining No -Exudate Amt Medium -Exudate Type Serosanguineous -Wound Margin Distinct, Outline Attached -Granulation Amt Medium (34-66%) -Granulation Quality [place] -Slough/Fibrin Yes -Necrosis Amt Medium (34-66%) -Necrotic Tissue Type Adherent Slough -Structure Exposed N/A -Texture (Uyen-wound Skin Appearance) Assessed, Excoriation -Moisture (Uyen-wound Skin Appearance) Assessed -Color (Uyen-wound Skin Appearance) Assessed -Temperature (Uyen-wound Skin No Abnormality Appearance) (Pt Warm) -Tenderness on Palpation (Uyen-wound No Skin Appearance) -Ulcer Cleansing Wound Cleanser -Foul Odor after Cleansing No -Anesthetic Used 5% Lidocaine Gel Lower Limb Edema Present Yes Right Calf (cm) 53.5 Right Ankle (cm) 28 Left Calf (cm) 50.5 Left Ankle (cm) 28.5 WC - Nurse 2 - General Ulcer CM Notes Start: 12/27/22 11:27 Freq: Status: Active Protocol: Activity Type Activity Date Activity User E-sign Co-sign Detail Recorded Client Recorded Date Recorded By Document 12/27/22 11:51 [id number] 12/27/22 11:54 Document 01/03/23 11:41 [id number] 01/03/23 11:47 Document 01/10/23 11:32 [id number] 01/10/23 11:44 Document 01/17/23 11:41 [id number] 01/17/23 11:52 12/27/22 01/03/23 01/10/23 11:51 11:41 11:32 Wound Center Nurse 2 15-left chest -Time -Correct Patient -Correct Side, Site, Position -Correct Procedure -Procedure Performed -Type of Procedure -Clinical Debridement -Tissue Removed -Post Debridement (cm) - Length -Post Debridement (cm) - Width -Post Debridement (cm) - Depth -Total Square (Post) (cm) -Area of Debridement (cm) - Length -Area of Debridement (cm) - Width -Total Square (Area) (cm) -Tunneling -Undermining/Tunneling -Circular Undermining -Wound/Ulcer Outcome -Ulcer Cleansing -Foul Odor after Cleansing -Bioengineered Tissue -Bleeding Controlled with -Treatment Response -Offloading -Debridement - Subq, 1st 20sq cm -Debridement, SubQ, ea addt'l 20sq cm or part thereof 14.RLE cluster -Time 11:39 -Correct Patient Yes -Correct Side, Site, Position Yes -Correct Procedure Yes -Procedure Performed Yes -Type of Procedure Debridement -Clinical Debridement Subcutaneous -Tissue Removed Subcutaneous -Post Debridement (cm) - Length 5.5 -Post Debridement (cm) - Width 13.7 -Post Debridement (cm) - Depth 0.1 -Total Square (Post) (cm) 75.35 -Area of Debridement (cm) - Length 5.5 -Area of Debridement (cm) - Width 13.7 -Total Square (Area) (cm) 75.35 -Tunneling No -Undermining/Tunneling No -Circular Undermining No -Wound/Ulcer Outcome Not Healed -Ulcer Cleansing Rinsed/ Irrigated with Saline -Foul Odor after Cleansing No -Bioengineered Tissue No -Bleeding Controlled with Pressure -Treatment Response Procedure Tolerated Well -Offloading No -Debridement - Subq, 1st 20sq cm No 13. LLE lateral -Time 11:40 -Correct Patient Yes -Correct Side, Site, Position Yes -Correct Procedure Yes -Procedure Performed Yes -Type of Procedure Debridement -Clinical Debridement Subcutaneous -Tissue Removed Subcutaneous -Post Debridement (cm) - Length 7.0 -Post Debridement (cm) - Width 6.5 -Post Debridement (cm) - Depth 0.1 -Total Square (Post) (cm) 45.50 -Area of Debridement (cm) - Length 7.0 -Area of Debridement (cm) - Width 6.5 -Total Square (Area) (cm) 45.50 -Tunneling -Undermining/Tunneling No -Circular Undermining No -Wound/Ulcer Outcome Not Healed -Ulcer Cleansing Rinsed/ Irrigated with Saline -Foul Odor after Cleansing No -Bioengineered Tissue No -Bleeding Controlled with Pressure -Treatment Response Procedure Tolerated Well -Offloading No -Debridement - Subq, 1st 20sq cm No 10-RIGHT ANTERIOR SHOULDER -Time 11:52 11:43 11:37 -Correct Patient Yes Yes Yes -Correct Side, Site, Position Yes Yes Yes -Correct Procedure Yes Yes Yes -Procedure Performed Yes Yes Yes -Type of Procedure Debridement Debridement Debridement -Clinical Debridement Subcutaneous Subcutaneous Subcutaneous -Tissue Removed Subcutaneous Subcutaneous Subcutaneous -Post Debridement (cm) - Length 4.0 5.5 4.2 -Post Debridement (cm) - Width 4.6 4.0 5.6 -Post Debridement (cm) - Depth 0.1 0.1 0.1 -Total Square (Post) (cm) 18.40 22.00 23.52 -Area of Debridement (cm) - Length 4.0 5.5 4.2 -Area of Debridement (cm) - Width 4.6 4.0 5.6 -Total Square (Area) (cm) 18.40 22.00 23.52 -Tunneling No No No -Undermining/Tunneling No No No -Circular Undermining No No No -Wound/Ulcer Outcome Not Healed Not Healed Not Healed -Ulcer Cleansing Rinsed/ Rinsed/ Rinsed/ Irrigated with Irrigated with Irrigated with Saline Saline Saline -Foul Odor after Cleansing No No No -Bioengineered Tissue No No No -Bleeding Controlled with Pressure Pressure Pressure -Treatment Response Procedure Procedure Procedure Tolerated Well Tolerated Well Tolerated Well -Offloading No No No -Debridement - Subq, 1st 20sq cm No Yes No -Debridement, SubQ, ea addt'l 20sq cm 3 or part thereof #5 mid chest -Time 11:52 11:44 11:41 -Correct Patient Yes Yes Yes -Correct Side, Site, Position Yes Yes Yes -Correct Procedure Yes Yes Yes -Procedure Performed Yes Yes Yes -Type of Procedure Debridement Debridement Debridement -Clinical Debridement Subcutaneous Subcutaneous -Tissue Removed Subcutaneous Epidermis, Subcutaneous Subcutaneous -Post Debridement (cm) - Length 5.0 9.5 3.2 -Post Debridement (cm) - Width 11.5 4.2 12.0 -Post Debridement (cm) - Depth 0.1 0.1 0.1 -Total Square (Post) (cm) 57.50 39.90 38.40 -Area of Debridement (cm) - Length 5.0 9.5 3.2 -Area of Debridement (cm) - Width 11.5 4.0 12 -Total Square (Area) (cm) 57.50 38.00 38.4 -Tunneling No No No -Undermining/Tunneling No No No -Circular Undermining No No No -Wound/Ulcer Outcome Not Healed Not Healed Not Healed -Ulcer Cleansing Rinsed/ Rinsed/ Rinsed/ Irrigated with Irrigated with Irrigated with Saline Saline Saline -Foul Odor after Cleansing No No No -Bioengineered Tissue No No No -Bleeding Controlled with Pressure Pressure Pressure -Treatment Response Procedure Procedure Procedure Tolerated Well Tolerated Well Tolerated Well -Offloading No No No -Debridement - Subq, 1st 20sq cm Yes No Yes -Debridement, SubQ, ea addt'l 20sq cm 3 9 or part thereof Pain Scale: 0-10 Numeric Is Patient Pain Free? Yes Yes Yes 01/17/23 11:41 Wound Center Nurse 2 15-left chest -Time 11:44 -Correct Patient Yes -Correct Side, Site, Position Yes -Correct Procedure Yes -Procedure Performed Yes -Type of Procedure Debridement -Clinical Debridement Subcutaneous -Tissue Removed Subcutaneous -Post Debridement (cm) - Length 3.5 -Post Debridement (cm) - Width 1.7 -Post Debridement (cm) - Depth 0.1 -Total Square (Post) (cm) 5.95 -Area of Debridement (cm) - Length 3.5 -Area of Debridement (cm) - Width 1.7 -Total Square (Area) (cm) 5.95 -Tunneling No -Undermining/Tunneling No -Circular Undermining No -Wound/Ulcer Outcome Not Healed -Ulcer Cleansing Rinsed/ Irrigated with Saline -Foul Odor after Cleansing No -Bioengineered Tissue No -Bleeding Controlled with Pressure -Treatment Response Procedure Tolerated Well -Offloading No -Debridement - Subq, 1st 20sq cm Yes -Debridement, SubQ, ea addt'l 20sq cm 3 or part thereof 14.RLE cluster -Time 11:49 -Correct Patient Yes -Correct Side, Site, Position Yes -Correct Procedure Yes -Procedure Performed Yes -Type of Procedure Debridement -Clinical Debridement Subcutaneous -Tissue Removed Subcutaneous -Post Debridement (cm) - Length 4 -Post Debridement (cm) - Width 6 -Post Debridement (cm) - Depth 0.1 -Total Square (Post) (cm) 24 -Area of Debridement (cm) - Length 4 -Area of Debridement (cm) - Width 6 -Total Square (Area) (cm) 24 -Tunneling No -Undermining/Tunneling No -Circular Undermining No -Wound/Ulcer Outcome Not Healed -Ulcer Cleansing Rinsed/ Irrigated with Saline -Foul Odor after Cleansing No -Bioengineered Tissue No -Bleeding Controlled with Pressure -Treatment Response Procedure Tolerated Well -Offloading No -Debridement - Subq, 1st 20sq cm No 13. LLE lateral -Time 11:50 -Correct Patient Yes -Correct Side, Site, Position Yes -Correct Procedure Yes -Procedure Performed Yes -Type of Procedure Debridement -Clinical Debridement Subcutaneous -Tissue Removed Subcutaneous -Post Debridement (cm) - Length 5.0 -Post Debridement (cm) - Width 3.2 -Post Debridement (cm) - Depth 0.1 -Total Square (Post) (cm) 16.00 -Area of Debridement (cm) - Length 5.0 -Area of Debridement (cm) - Width 3.2 -Total Square (Area) (cm) 16.00 -Tunneling No -Undermining/Tunneling No -Circular Undermining No -Wound/Ulcer Outcome Not Healed -Ulcer Cleansing Rinsed/ Irrigated with Saline -Foul Odor after Cleansing No -Bioengineered Tissue No -Bleeding Controlled with Pressure -Treatment Response Procedure Tolerated Well -Offloading No -Debridement - Subq, 1st 20sq cm No 10-RIGHT ANTERIOR SHOULDER -Time 11:45 -Correct Patient Yes -Correct Side, Site, Position Yes -Correct Procedure Yes -Procedure Performed Yes -Type of Procedure Debridement -Clinical Debridement Subcutaneous -Tissue Removed Subcutaneous -Post Debridement (cm) - Length 4 -Post Debridement (cm) - Width 4 -Post Debridement (cm) - Depth 0.1 -Total Square (Post) (cm) 16 -Area of Debridement (cm) - Length 4 -Area of Debridement (cm) - Width 4 -Total Square (Area) (cm) 16 -Tunneling No -Undermining/Tunneling No -Circular Undermining No -Wound/Ulcer Outcome Not Healed -Ulcer Cleansing Rinsed/ Irrigated with Saline -Foul Odor after Cleansing No -Bioengineered Tissue No -Bleeding Controlled with Pressure -Treatment Response Procedure Tolerated Well -Offloading No -Debridement - Subq, 1st 20sq cm No -Debridement, SubQ, ea addt'l 20sq cm or part thereof #5 mid chest -Time 11:45 -Correct Patient Yes -Correct Side, Site, Position Yes -Correct Procedure Yes -Procedure Performed Yes -Type of Procedure Debridement -Clinical Debridement Subcutaneous -Tissue Removed Subcutaneous -Post Debridement (cm) - Length 3.2 -Post Debridement (cm) - Width 2.8 -Post Debridement (cm) - Depth 0.1 -Total Square (Post) (cm) 8.96 -Area of Debridement (cm) - Length 3.2 -Area of Debridement (cm) - Width 2.8 -Total Square (Area) (cm) 8.96 -Tunneling No -Undermining/Tunneling No -Circular Undermining No -Wound/Ulcer Outcome Not Healed -Ulcer Cleansing Rinsed/ Irrigated with Saline -Foul Odor after Cleansing No -Bioengineered Tissue No -Bleeding Controlled with Pressure -Treatment Response Procedure Tolerated Well -Offloading No -Debridement - Subq, 1st 20sq cm No -Debridement, SubQ, ea addt'l 20sq cm or part thereof Pain Scale: 0-10 Numeric Is Patient Pain Free? Yes WC - Nurse 3 - General Ulcer D/C NN Start: 12/27/22 11:27 Freq: Status: Active Protocol: Activity Type Activity Date Activity User E-sign Co-sign Detail Recorded Client Recorded Date Recorded By Document 12/27/22 12:11 [id number] 12/27/22 12:12 Document 01/03/23 11:55 RB [id number] 01/03/23 11:58 RB Document 01/10/23 12:09 RB [id number] 01/10/23 12:11 RB Document 01/15/23 07:14 PL [id number] 01/16/23 07:15 PL Document 01/17/23 12:19 DL [id number] 01/17/23 12:22 DL 12/27/22 01/03/23 01/10/23 12:11 11:55 12:09 Wound Care Center Nurse 3 15-left chest -Ulcer Cleansing -Foul Odor after Cleansing -Primary Dressing Applied -Other Dressing -Primary Dressing Covered/Secured with 14.RLE cluster -Ulcer Cleansing Wound Cleanser -Foul Odor after Cleansing -Primary Dressing Applied Optilok 6.5x10, Silvercel -Primary Dressing Covered/Secured with Dry Gauze & Roll Gauze, Secured with Tape -Optilok 6.5x10 1 -Silvercel 1 13. LLE lateral -Ulcer Cleansing Wound Cleanser -Foul Odor after Cleansing -Primary Dressing Applied Optilok 6.5x10 -Other Dressing silvercel -Primary Dressing Covered/Secured with Dry Gauze & Roll Gauze, Secured with Tape -Optilok 6.5x10 1 -Silvercel 10-RIGHT ANTERIOR SHOULDER -Ulcer Cleansing Rinsed/ Rinsed/ Irrigated with Irrigated with Saline Saline -Foul Odor after Cleansing -Primary Dressing Applied C Hydrogel ($), NonAdherent C Hydrogel ($), NonAdherent Contact Layer NonAdherent Contact Layer Contact Layer -Other Dressing hydrogel -Primary Dressing Covered/Secured with Dry Gauze, Dry Gauze, Secured with Secured with Tape Tape #5 mid chest -Ulcer Cleansing Rinsed/ Irrigated with Saline -Foul Odor after Cleansing -Primary Dressing Applied NonAdherent NonAdherent NonAdherent Contact Layer Contact Layer Contact Layer -Other Dressing hydrogel hydrogel hydrogel -Primary Dressing Covered/Secured with Dry Gauze, Dry Gauze, Secured with Secured with Tape Tape Bilateral -Multi-Layered Wrap Application Right -Multi-Layered Wrap Application Multi-Layer Multi-Layer Comp - Right ($ Comp - Bilat ($ ) ) -Tubular Bandage Double Layer -Size of Tubigrip Used Size F -Size F ($) 2 Treatment Response Procedure Procedure Tolerated Well Tolerated Well Pain Scale: 0-10 Numeric Is Patient Pain Free? Yes Yes Yes WC - Visit Discharge Discharge Condition Stable Stable Stable Ambulatory Status Ambulatory,Cane Ambulatory,Cane Ambulatory Transportation Private Auto Private Auto Private Auto Medication Reconcilliation completed & No No No provided to patient/care provider Clinical Summary of Care Provided Yes Yes Yes 01/15/23 01/17/23 07:14 12:19 Wound Care Center Nurse 3 15-left chest -Ulcer Cleansing Rinsed/ Irrigated with Saline -Foul Odor after Cleansing No -Primary Dressing Applied NonAdherent Contact Layer -Other Dressing hydrogel -Primary Dressing Covered/Secured with Dry Gauze, Secured with Tape 14.RLE cluster -Ulcer Cleansing Soap and Water -Foul Odor after Cleansing No -Primary Dressing Applied Optilok 6.5x10, Silvercel -Primary Dressing Covered/Secured with Dry Gauze -Optilok 6.5x10 1 -Silvercel 1 13. LLE lateral -Ulcer Cleansing Soap and Water -Foul Odor after Cleansing No -Primary Dressing Applied Optilok 6.5x10, Silvercel -Other Dressing -Primary Dressing Covered/Secured with Dry Gauze -Optilok 6.5x10 1 -Silvercel 1 10-RIGHT ANTERIOR SHOULDER -Ulcer Cleansing Rinsed/ Irrigated with Saline -Foul Odor after Cleansing No -Primary Dressing Applied NonAdherent Contact Layer -Other Dressing hydrogel -Primary Dressing Covered/Secured with Dry Gauze, Secured with Tape #5 mid chest -Ulcer Cleansing Rinsed/ Irrigated with Saline -Foul Odor after Cleansing No -Primary Dressing Applied NonAdherent Contact Layer -Other Dressing hydrogel -Primary Dressing Covered/Secured with Dry Gauze, Secured with Tape Bilateral -Multi-Layered Wrap Application Multi-Layer Multi-Layer Comp - Bilat ($ Comp - Bilat ($ ) ) Right -Multi-Layered Wrap Application -Tubular Bandage -Size of Tubigrip Used -Size F ($) Treatment Response Procedure Tolerated Well Pain Scale: 0-10 Numeric Is Patient Pain Free? Yes Yes WC - Visit Discharge Discharge Condition Stable Ambulatory Status Ambulatory Transportation Private Auto Medication Reconcilliation completed & provided to patient/care provider Clinical Summary of Care Provided Additional Wound Wound debrided: Right and left lateral leg ulcer clusters Wound Grade/Stage: Stage II Type of Debridement: Excisional debridement Anesthesia Used: 5% Lidocaine Gel Depth: Down to and including healthy tissue and in the subcutaneous layer Percentage of wound debrided: 100 Instrument Used: 7mm curette Tissue Removed: Devitalized tissue and slough Severity: Fat Layer Exposed Amount of bleeding with debridement: Mild Bleeding Controlled with: Pressure and Compression and gauze Patient tolerated procedure: Patient tolerated procedure well Assessment/Plan Assessment/Plan (1) Ulcer of chest wall, limited to breakdown of skin: CODE(S): L98.491 - Non-pressure chronic ulcer of skin of other sites limited to breakdown of skin (2) Ulcer of left lower extremity, limited to breakdown of skin: CODE(S): L97.921 - Non-pressure chronic ulcer of unspecified part of left lower leg limited to breakdown of skin (3) Ulcer of right lower extremity, limited to breakdown of skin: CODE(S): L97.911 - Non-pressure chronic ulcer of unspecified part of right lower leg limited to breakdown of skin (4) Skin ulcer of hand, limited to breakdown of skin: CODE(S): L98.491 - Non-pressure chronic ulcer of skin of other sites limited to breakdown of skin (5) Age-related physical debility: CODE(S): R54 - Age-related physical debility (6) Edema of both legs: CODE(S): R60.0 - Localized edema (7) Skin-picking disorder: CODE(S): F42.4 - Excoriation (skin-picking) disorder PLAN: Plan Patient evaluated at the wound healing center today. Edema is improved since starting improve using the 3M 2 layer wraps. Wound care to the right anterior shoulder, medial chest and left chest place moistened Collagen hydrogel, cover with adaptic and cover with gauze daily. Wash the ulcers with soap and water daily at the time of the dressing changes. To the right lateral leg cluster and left lateral leg wound place Silvercel with a super absorber. Compression will be a 3M 2 layer wraps bilaterally. He will return next week for a nurse visit to have the wraps changed. A wound culture was obtained on 11/14/22 of the upper chest/anterior shoulder ulcers which was positive for Staphylococcus aureus, Kocuria kristinae and Gram positive faraz. He has completed the Doxycycline. He has [facility] to help with the wound care. Stressed importance of not picking at these ulcers. He complains of itching. He is using Vistaril 25 mg PRN for itching. Which he states has been helping with the itching. Encouraged him to cut his finger nails short and wear socks to bed to help prevent him from scratching. Keep legs elevated when sitting. Encouraged to sleep in a bed, but he has slept in a recliner for 30 years. Referred him to Dermatology for further evaluation of these multiple black scabs. His appointment is scheduled for 02/02/22. Hopefully they will biopsy these ulcers. Follow up one week for nurses visit, 2 weeks to see me since I'm out of town next week.
[2023-01-24 11:33] VITALS: BP 125/68; PULSE 68; RESP 18; TEMP 35.5; BMI 40.6
== END 2023-01-26 23:59 | disposition home or self-care (01) ==
LOC: WC 11:30
PROVIDERS: PCP Nurse Practitioner Family; Referring Provider Nurse Practitioner Family; Visit Provider Nurse Practitioner Family
DX: L98.492 Non-pressure chronic ulcer of skin of other sites with fat layer exposed (principal); L97.921 Non-pressure chronic ulcer of unspecified part of left lower leg limited to breakdown of skin; L98.491 Non-pressure chronic ulcer of skin of other sites limited to breakdown of skin; L97.911 Non-pressure chronic ulcer of unspecified part of right lower leg limited to breakdown of skin; I10 Essential (primary) hypertension; F42.4 Excoriation (skin-picking) disorder; R60.0 Localized edema; R54 Age-related physical debility
CPT/HCPCS: 11042; 11045; 29581

== ENCOUNTER 2023-02-19 11:30 | Outpatient (RCR) | payer MEDICARE, MEDICAID, SELFPAY ==
[2023-01-27 01:01] VITALS: BP 125/68; PULSE 68; RESP 18; TEMP 35.5; BMI 40.6
[2023-01-29 10:09] VITALS: BP 127/69; PULSE 78; RESP 20; TEMP 35.6; BMI 40.6
--- NOTE | 2023-01-29 12:31 | PN.PCM_ITS ---
History of Present Illness Date of Service: 01/29/23 Chief Complaint: Superficial ulcers to bilateral lower legs History of Wound: Patient is a 78 year old male who has multiple skin lesions scattered over his chest, arms, hands and abdomen and legs. The initial skin lesions started from a bed bugs which were causing him to scratch. He was hospitalized at the end of August for sepsis and cellulitis. He was discharged to [facility]. He has since been discharged home and has home health from [facility]. He does admit to picking at the scabbing. He has not been consistently putting anything on these areas. He is on Warfarin for history of PE, also has a history of HTN, CKD II, anemia, RAAD, bilateral leg edema and debility. He denies fever, chills, nausea, vomiting. Progress of Wound: Right anterior shoulder ulcer, upper mid to left chest ulcers are stable. They all have dry scabbing surrounding the ulcers even with the collagen hydrogel and adaptic. He states he is changing the dressings daily. Edema is improved. He has new skin tears on his right leg cluster and left lateral leg ulcer that occurred after he was drying himself off after a shower. Objective Data Objective Data Vital Signs: Vital Signs Temp Pulse Resp BP 96.0 F L 78 20 H 127/69 H 01/29/23 10:01/29/23 10:09 01/29/23 10:09 01/29/23 10:09 Weight: 300 lb Body Mass Index (BMI) 40.6 Charges/Coding Procedures Integumentary 111xxx-113xx: 25308 Roxie subq tissue 20 sq cm/< Add On Codes: 87554 Roxie subq tissue add-on (x3) Debridement Note Debridement Note Wound debrided: (#5) mid chest, (#10) Right anterior shoulder, (#15) left chest Wound Grade/Stage: Stage II Type of Debridement: Excisional debridement Anesthesia Used: 4% Lidocaine Solution Depth: Down to and including healthy tissue and in the subcutaneous layer Percentage of wound debrided: 100 Instrument Used: 5mm curette Tissue Removed: Devitalized tissue and slough Severity: Limited To Skin Breakdown Amount of bleeding with debridement: Mild Bleeding Controlled with: Pressure and Compression and gauze Patient tolerated procedure: Patient tolerated procedure well Post-Debridement Measurements and Additional Note: Post-Debridement Measurements/Treatment WC - Nurse 1 - General Ulcer Assessment Start: 01/29/23 10:09 Freq: Status: Active Protocol: DORY Activity Type Activity Date Activity User E-sign Co-sign Detail Recorded Client Recorded Date Recorded By Document 01/29/23 10:09 CHANDLER [id number] 01/29/23 10:38 CHANDLER 01/29/23 10:09 WC - Today's Visit Information Type of service Follow-up Visit (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 Any new allergies or adverse reactions No Had a fall/change in ADL's that may No increase risk of falls Have you been in the hospital since your No last visit? Has dressing in place as prescribed Yes Has compression in place as prescribed Yes Has offloadiing in place as prescribed Yes Experienced any changes in pain level or No management Pain Scale: 0-10 Numeric Is Patient Pain Free? Yes - Nurse 1 - General Ulcer Measurement Start: 01/29/23 10:09 Freq: Status: Active Protocol: Activity Type Activity Date Activity User E-sign Co-sign Detail Recorded Client Recorded Date Recorded By Document 01/29/23 10:09 CHANDLER [id number] 01/29/23 10:38 PL 01/29/23 10:09 Wound Center Nurse 1 15-left chest -Current Size (cm) - Length 4.5 -Current Size (cm) - Width 2 -Current Size (cm) - Depth 0.1 -Total Square Cm 9.0 14.RLE cluster -Current Size (cm) - Length 28.5 -Current Size (cm) - Width 11 -Current Size (cm) - Depth 0.1 -Total Square Cm 313.5 13. LLE lateral -Current Size (cm) - Length 2.5 -Current Size (cm) - Width 2.5 -Current Size (cm) - Depth 0.1 -Total Square Cm 6.25 10-RIGHT ANTERIOR SHOULDER -Current Size (cm) - Length 2 -Current Size (cm) - Width 3 -Current Size (cm) - Depth 0.1 -Total Square Cm 6 #5 mid chest -Current Size (cm) - Length 3 -Current Size (cm) - Width 2.7 -Current Size (cm) - Depth 0.1 -Total Square Cm 8.1 WC - Nurse 2 - General Ulcer CM Notes Start: 01/29/23 10:09 Freq: Status: Active Protocol: Activity Type Activity Date Activity User E-sign Co-sign Detail Recorded Client Recorded Date Recorded By Document 01/29/23 10:36 JAYESH [id number] 01/29/23 10:52 JAYESH 01/29/23 10:36 Wound Center Nurse 2 15-left chest -Time 10:41 -Correct Patient Yes -Correct Side, Site, Position Yes -Correct Procedure Yes -Procedure Performed Yes -Type of Procedure Debridement -Clinical Debridement Subcutaneous -Tissue Removed Subcutaneous -Post Debridement (cm) - Length 4.5 -Post Debridement (cm) - Width 3.3 -Post Debridement (cm) - Depth 0.1 -Total Square (Post) (cm) 14.85 -Area of Debridement (cm) - Length 4.5 -Area of Debridement (cm) - Width 3.3 -Total Square (Area) (cm) 14.85 -Tunneling No -Undermining/Tunneling No -Circular Undermining No -Wound/Ulcer Outcome Not Healed -Ulcer Cleansing Rinsed/ Irrigated with Saline -Foul Odor after Cleansing No -Bioengineered Tissue No -Bleeding Controlled with Pressure -Treatment Response Procedure Tolerated Well -Offloading No -Debridement - Subq, 1st 20sq cm Yes -Debridement, SubQ, ea addt'l 20sq cm 13 or part thereof 14.RLE cluster -Time 10:42 -Correct Patient Yes -Correct Side, Site, Position Yes -Correct Procedure Yes -Procedure Performed Yes -Type of Procedure Debridement -Clinical Debridement Subcutaneous -Tissue Removed Subcutaneous -Post Debridement (cm) - Length 29 -Post Debridement (cm) - Width 8 -Post Debridement (cm) - Depth 0.1 -Total Square (Post) (cm) 232 -Area of Debridement (cm) - Length 29 -Area of Debridement (cm) - Width 8 -Total Square (Area) (cm) 232 -Tunneling No -Undermining/Tunneling No -Circular Undermining No -Wound/Ulcer Outcome Not Healed -Ulcer Cleansing Rinsed/ Irrigated with Saline -Foul Odor after Cleansing No -Bioengineered Tissue No -Bleeding Controlled with Pressure -Treatment Response Procedure Tolerated Well -Offloading No -Debridement - Subq, 1st 20sq cm No 13. LLE lateral -Time 10:43 -Correct Patient Yes -Correct Side, Site, Position Yes -Correct Procedure Yes -Procedure Performed Yes -Type of Procedure Debridement -Clinical Debridement Subcutaneous -Tissue Removed Subcutaneous -Post Debridement (cm) - Length 3 -Post Debridement (cm) - Width 1.5 -Post Debridement (cm) - Depth 0.1 -Total Square (Post) (cm) 4.5 -Area of Debridement (cm) - Length 3 -Area of Debridement (cm) - Width 1.5 -Total Square (Area) (cm) 4.5 -Tunneling No -Undermining/Tunneling No -Circular Undermining No -Wound/Ulcer Outcome Not Healed -Ulcer Cleansing Rinsed/ Irrigated with Saline -Foul Odor after Cleansing No -Bioengineered Tissue No -Bleeding Controlled with Pressure -Treatment Response Procedure Tolerated Well -Offloading No -Debridement - Subq, 20sq cm No 10-RIGHT ANTERIOR SHOULDER -Time 10:43 -Correct Patient Yes -Correct Side, Site, Position Yes -Correct Procedure Yes -Procedure Performed Yes -Type of Procedure Debridement -Clinical Debridement Subcutaneous -Tissue Removed Subcutaneous -Post Debridement (cm) - Length 4.6 -Post Debridement (cm) - Width 3.7 -Post Debridement (cm) - Depth 0.1 -Total Square (Post) (cm) 17.02 -Area of Debridement (cm) - Length 4.6 -Area of Debridement (cm) - Width 3.7 -Total Square (Area) (cm) 17.02 -Tunneling No -Undermining/Tunneling No -Circular Undermining No -Wound/Ulcer Outcome Not Healed -Ulcer Cleansing Rinsed/ Irrigated with Saline -Foul Odor after Cleansing No -Bioengineered Tissue No -Bleeding Controlled with Pressure -Treatment Response Procedure Tolerated Well -Offloading No -Debridement - Subq, 1st 20sq cm No #5 mid chest -Time 10:45 -Correct Patient Yes -Correct Side, Site, Position Yes -Correct Procedure Yes -Procedure Performed Yes -Type of Procedure Debridement -Clinical Debridement Subcutaneous -Tissue Removed Subcutaneous -Post Debridement (cm) - Length 2.7 -Post Debridement (cm) - Width 4.3 -Post Debridement (cm) - Depth 0.1 -Total Square (Post) (cm) 11.61 -Area of Debridement (cm) - Length 2.7 -Area of Debridement (cm) - Width 4.3 -Total Square (Area) (cm) 11.61 -Tunneling No -Undermining/Tunneling No -Circular Undermining No -Wound/Ulcer Outcome Not Healed -Ulcer Cleansing Rinsed/ Irrigated with Saline -Foul Odor after Cleansing No -Bioengineered Tissue No -Bleeding Controlled with Pressure -Treatment Response Procedure Tolerated Well -Offloading No -Debridement - Subq, 1st 20sq cm No Pain Scale: 0-10 Numeric Is Patient Pain Free? Yes Additional Wound Wound debrided: Right and left leg ulcers Type of Debridement: Excisional debridement Anesthesia Used: 4% Lidocaine Solution and 5% Lidocaine Gel Depth: Down to and including healthy tissue and in the subcutaneous layer Percentage of wound debrided: 100 Instrument Used: 5mm curette Tissue Removed: Devitalized tissue and slough Severity: Fat Layer Exposed Amount of bleeding with debridement: Mild Bleeding Controlled with: Pressure and Compression and gauze Patient tolerated procedure: Patient tolerated procedure well Assessment/Plan Assessment/Plan (1) Ulcer of chest wall, limited to breakdown of skin: CODE(S): L98.491 - Non-pressure chronic ulcer of skin of other sites limited to breakdown of skin (2) Ulcer of left lower extremity, limited to breakdown of skin: CODE(S): L97.921 - Non-pressure chronic ulcer of unspecified part of left lower leg limited to breakdown of skin (3) Ulcer of right lower extremity, limited to breakdown of skin: CODE(S): L97.911 - Non-pressure chronic ulcer of unspecified part of right lower leg limited to breakdown of skin (4) Age-related physical debility: CODE(S): R54 - Age-related physical debility (5) Edema of both legs: CODE(S): R60.0 - Localized edema (6) Skin-picking disorder: CODE(S): F42.4 - Excoriation (skin-picking) disorder PLAN: Plan Patient evaluated at the wound healing center today. Edema is improved since starting improve using the 3M 2 layer wraps. Wound care to the right anterior shoulder, medial chest and left chest place moistened Collagen hydrogel, cover with adaptic and cover with gauze daily. Wash the ulcers with soap and water daily at the time of the dressing changes. To the right lateral leg and left lateral leg wound place collagen hydrogel covered with adaptic and top with gauze daily. Hold the 3M 2 layer wraps because he sees dermatology on Sunday. Compression - EUGENE wrap bilaterally. A wound culture was obtained on 11/14/22 of the upper chest/anterior shoulder ulcers which was positive for Staphylococcus aureus, Kocuria kristinae and Gram positive faraz. He has completed the Doxycycline. He has [facility] to help with the wound care. Stressed importance of not picking at these ulcers. He complains of itching. He is using Vistaril 25 mg PRN for itching. Which he states has been helping with the itching. Encouraged him to cut his finger nails short and wear socks to bed to help prevent him from scratching. Keep legs elevated when sitting. Encouraged to sleep in a bed, but he has slept in a recliner for 30 years. Referred him to Dermatology for further evaluation of these multiple black sc abs. His appointment is scheduled for 02/02/22. Hopefully they will biopsy these ulcers. Follow up one week.
[2023-02-05 10:11] VITALS: BP 140/83; PULSE 80; RESP 18; TEMP 35.9; BMI 40.6
--- NOTE | 2023-02-05 11:33 | PCM.WC.PN ---
History of Present Illness Date of Service: 02/05/23 Chief Complaint: Superficial ulcers to bilateral lower legs History of Wound: Patient is a 78 year old male who has multiple skin lesions scattered over his chest, arms, hands and abdomen and legs. The initial skin lesions started from a bed bugs which were causing him to scratch. He was hospitalized at the end of August for sepsis and cellulitis. He was discharged to [facility]. He has since been discharged home and has home health from [facility]. He does admit to picking at the scabbing. He has not been consistently putting anything on these areas. He is on Warfarin for history of PE, also has a history of HTN, CKD II, anemia, RAAD, bilateral leg edema and debility. He denies fever, chills, nausea, vomiting. Progress of Wound: Right anterior shoulder ulcer, upper mid to left chest ulcers are stable. They all have dry scabbing surrounding the ulcers even with the collagen hydrogel and adaptic. He states he is changing the dressings daily. The skin tears on his right leg cluster and left lateral leg ulcer are pink, stable, look good. He went to dermatology last week and he states that they took a biopsy and placed him on some topical cream and oral steroids. He goes back in a couple weeks. Objective Data Objective Data Vital Signs: Vital Signs Temp Pulse Resp BP 96.7 F L 80 18 140/83 H 02/05/23 10:11 02/05/23 10:11 02/05/23 10:11 02/05/23 10:11 Weight: 300 lb Body Mass Index (BMI) 40.6 Charges/Coding Procedures Integumentary 111xxx-113xx: [id number] Roxie subq tissue 20 sq cm/< Add On Codes: 80210 Roxie subq tissue add-on Debridement Note Debridement Note Wound debrided: (#5) mid chest, (#10) Right anterior shoulder, (#15) left chest Wound Grade/Stage: Stage II Type of Debridement: Excisional debridement Anesthesia Used: 4% Lidocaine Solution Depth: Down to and including healthy tissue and in the subcutaneous layer Percentage of wound debrided: 100 Instrument Used: 5mm curette Tissue Removed: Devitalized tissue and slough Severity: Limited To Skin Breakdown Amount of bleeding with debridement: Mild Bleeding Controlled with: Pressure and Compression and gauze Patient tolerated procedure: Patient tolerated procedure well Post-Debridement Measurements and Additional Note: Post-Debridement Measurements/Treatment - Nurse 1 - General Ulcer Assessment Start: 01/29/23 10:09 Freq: Status: Active Protocol: DORY Activity Type Activity Date Activity User E-sign Co-sign Detail Recorded Client Recorded Date Recorded By Document 01/29/23 10:09 PL [id number] 01/29/23 10:38 PL Document 02/05/23 10:11 RB [id number] 02/05/23 10:29 RB 01/29/23 02/05/23 10:09 10:11 WC - Today's Visit Information Type of service Follow-up Visit Follow-up Visit (Physician/SUPERVISOR WOOL SHEARING (Physician/SUPERVISOR WOOL SHEARING ) ) Arrival Mode Ambulatory Ambulatory Transfer Assistance None None Patient Identification Verified (Name & Yes Yes ) Patient Requires Transmission-Based No No Precautions Safety Precautions NA Height and Weight Body Mass Index (BMI) 40.6 40.6 BMI Classification Obese Obese Vital Signs Temperature (97.8 F-99.1 F) 96.0 F L 96.7 F L Temperature Source Temporal Temporal Pulse Rate (60-100) 78 80 Pulse Location Monitor Respiratory Rate (12-18) 20 H 18 Respiratory rate source Observation Blood Pressure (90/60-120/80) 127/69 H 140/83 H Blood Pressure Mean (mm Hg) 88 102 Source Monitor Position Semi-Fowlers Blood Pressure Location Left Arm History Since Last Visit- (Skip if this is Patient's initial visit) Have you changed medications since your No No last visit? Any new allergies or adverse reactions No No Had a fall/change in ADL's that may No No increase risk of falls Signs or symptoms of abuse and/or No neglect since last visit Have you been in the hospital since your No No last visit? Has dressing in place as prescribed Yes Yes Has compression in place as prescribed Yes Yes Has offloadiing in place as prescribed Yes No Experienced any changes in pain level or No No management Pain Scale: 0-10 Numeric Is Patient Pain Free? Yes Yes - Nurse 1 - General Ulcer Measurement Start: 01/29/23 10:09 Freq: Status: Active Protocol: Activity Type Activity Date Activity User E-sign Co-sign Detail Recorded Client Recorded Date Recorded By Document 01/29/23 10:09 PL [id number] 01/29/23 10:38 PL Document 02/05/23 10:11 RB [id number] 02/05/23 10:29 RB 01/29/23 02/05/23 10:09 10:11 Wound Center Nurse 1 15-left chest -Combined with other wound No -Current Size (cm) - Length 4.5 4 -Current Size (cm) - Width 2 2 -Current Size (cm) - Depth 0.1 0.1 -Total Square Cm 9.0 8 -Tunneling No -Undermining/Tunneling No -Circular Undermining No -Exudate Amt Medium -Exudate Type Serosanguineous -Wound Margin Distinct, Outline Attached -Granulation Amt Medium (34-66%) -Granulation Quality [place] -Slough/Fibrin Yes -Necrosis Amt Medium (34-66%) -Necrotic Tissue Type Adherent Slough -Structure Exposed N/A -Texture (Uyen-wound Skin Appearance) Excoriation -Moisture (Uyen-wound Skin Appearance) Assessed -Color (Uyen-wound Skin Appearance) Assessed -Temperature (Uyen-wound Skin No Abnormality Appearance) (Pt Warm) -Tenderness on Palpation (Uyen-wound No Skin Appearance) -Ulcer Cleansing Wound Cleanser -Foul Odor after Cleansing No -Anesthetic Used 5% Lidocaine Gel 14.RLE cluster -Combined with other wound No -Current Size (cm) - Length 28.5 14.5 -Current Size (cm) - Width 11 9 -Current Size (cm) - Depth 0.1 0.1 -Total Square Cm 313.5 130.5 -Tunneling No -Undermining/Tunneling No -Circular Undermining No -Exudate Amt Medium -Exudate Type Serosanguineous -Wound Margin Distinct, Outline Attached -Granulation Amt Medium (34-66%) -Granulation Quality [place] -Slough/Fibrin Yes -Necrosis Amt Medium (34-66%) -Necrotic Tissue Type Adherent Slough -Structure Exposed N/A -Texture (Uyen-wound Skin Appearance) Excoriation -Moisture (Uyen-wound Skin Appearance) Assessed -Color (Uyen-wound Skin Appearance) Assessed -Temperature (Uyen-wound Skin No Abnormality Appearance) (Pt Warm) -Tenderness on Palpation (Uyen-wound No Skin Appearance) -Ulcer Cleansing Wound Cleanser -Foul Odor after Cleansing No -Anesthetic Used 5% Lidocaine Gel 13. LLE lateral -Combined with other wound No -Current Size (cm) - Length 2.5 8 -Current Size (cm) - Width 2.5 5 -Current Size (cm) - Depth 0.1 0.1 -Total Square Cm 6.25 40 -Tunneling No -Undermining/Tunneling No -Circular Undermining No -Exudate Amt Medium -Exudate Type Serosanguineous -Wound Margin Distinct, Outline Attached -Granulation Amt Medium (34-66%) -Granulation Quality [place] -Slough/Fibrin Yes -Necrosis Amt Medium (34-66%) -Necrotic Tissue Type Adherent Slough -Structure Exposed N/A -Texture (Uyen-wound Skin Appearance) Assessed, Excoriation -Moisture (Uyen-wound Skin Appearance) Assessed -Color (Uyen-wound Skin Appearance) Assessed -Temperature (Uyen-wound Skin No Abnormality Appearance) (Pt Warm) -Tenderness on Palpation (Uyen-wound No Skin Appearance) -Ulcer Cleansing Wound Cleanser -Foul Odor after Cleansing No -Anesthetic Used 5% Lidocaine Gel 10-RIGHT ANTERIOR SHOULDER -Combined with other wound No -Current Size (cm) - Length 2 4 -Current Size (cm) - Width 3 3 -Current Size (cm) - Depth 0.1 0.1 -Total Square Cm 6 12 -Tunneling No -Undermining/Tunneling No -Circular Undermining No -Exudate Amt Medium -Exudate Type Serosanguineous -Wound Margin Distinct, Outline Attached -Granulation Amt Medium (34-66%) -Granulation Quality [place] -Slough/Fibrin Yes -Necrosis Amt Medium (34-66%) -Necrotic Tissue Type Adherent Slough -Structure Exposed N/A -Texture (Uyen-wound Skin Appearance) Assessed, Excoriation -Moisture (Uyen-wound Skin Appearance) Assessed -Color (Uyen-wound Skin Appearance) Assessed -Temperature (Uyen-wound Skin No Abnormality Appearance) (Pt Warm) -Tenderness on Palpation (Uyen-wound No Skin Appearance) -Ulcer Cleansing Wound Cleanser -Foul Odor after Cleansing No -Anesthetic Used 5% Lidocaine Gel #5 mid chest -Combined with other wound No -Current Size (cm) - Length 3 5 -Current Size (cm) - Width 2.7 6 -Current Size (cm) - Depth 0.1 0.1 -Total Square Cm 8.1 30 -Tunneling No -Undermining/Tunneling No -Circular Undermining No -Exudate Amt Medium -Exudate Type Serosanguineous -Wound Margin Distinct, Outline Attached -Granulation Amt Medium (34-66%) -Granulation Quality [place] -Slough/Fibrin Yes -Necrosis Amt Medium (34-66%) -Necrotic Tissue Type Adherent Slough -Structure Exposed N/A -Texture (Uyen-wound Skin Appearance) Excoriation -Moisture (Uyen-wound Skin Appearance) Assessed -Color (Uyen-wound Skin Appearance) Assessed -Temperature (Uyen-wound Skin No Abnormality Appearance) (Pt Warm) -Tenderness on Palpation (Uyen-wound No Skin Appearance) -Ulcer Cleansing Wound Cleanser -Foul Odor after Cleansing No -Anesthetic Used 5% Lidocaine Gel Lower Limb Edema Present Yes Right Calf (cm) 51 Right Ankle (cm) 26 Left Calf (cm) 51 Left Ankle (cm) 27 WC - Nurse 2 - General Ulcer CM Notes Start: 01/29/23 10:09 Freq: Status: Active Protocol: Activity Type Activity Date Activity User E-sign Co-sign Detail Recorded Client Recorded Date Recorded By Document 01/29/23 10:36 JF [id number] 01/29/23 10:52 Document 02/05/23 10:41 JF [id number] 02/05/23 10:54 01/29/23 02/05/23 10:36 10:41 Wound Center Nurse 2 15-left chest -Time 10:41 10:43 -Correct Patient Yes Yes -Correct Side, Site, Position Yes Yes -Correct Procedure Yes Yes -Procedure Performed Yes Yes -Type of Procedure Debridement Debridement -Clinical Debridement Subcutaneous Subcutaneous -Tissue Removed Subcutaneous Subcutaneous -Post Debridement (cm) - Length 4.5 3.8 -Post Debridement (cm) - Width 3.3 2 -Post Debridement (cm) - Depth 0.1 0.1 -Total Square (Post) (cm) 14.85 7.6 -Area of Debridement (cm) - Length 4.5 3.8 -Area of Debridement (cm) - Width 3.3 2.5 -Total Square (Area) (cm) 14.85 9.50 -Tunneling No No -Undermining/Tunneling No No -Circular Undermining No No -Wound/Ulcer Outcome Not Healed Not Healed -Ulcer Cleansing Rinsed/ Rinsed/ Irrigated with Irrigated with Saline Saline -Foul Odor after Cleansing No No -Bioengineered Tissue No No -Bleeding Controlled with Pressure Pressure -Treatment Response Procedure Procedure Tolerated Well Tolerated Well -Offloading No No -Debridement - Subq, 1st 20sq cm Yes Yes -Debridement, SubQ, ea addt'l 20sq cm 13 1 or part thereof 14.RLE cluster -Time 10:42 10:44 -Correct Patient Yes No -Correct Side, Site, Position Yes No -Correct Procedure Yes No -Procedure Performed Yes No -Type of Procedure Debridement -Clinical Debridement Subcutaneous -Tissue Removed Subcutaneous -Post Debridement (cm) - Length 29 -Post Debridement (cm) - Width 8 -Post Debridement (cm) - Depth 0.1 -Total Square (Post) (cm) 232 -Area of Debridement (cm) - Length 29 -Area of Debridement (cm) - Width 8 -Total Square (Area) (cm) 232 -Tunneling No No -Undermining/Tunneling No No -Circular Undermining No No -Wound/Ulcer Outcome Not Healed Not Healed -Ulcer Cleansing Rinsed/ Rinsed/ Irrigated with Irrigated with Saline Saline -Foul Odor after Cleansing No No -Bioengineered Tissue No No -Bleeding Controlled with Pressure Pressure -Treatment Response Procedure Procedure Tolerated Well Tolerated Well -Offloading No No -Debridement - Subq, 1st 20sq cm No No 13. LLE lateral -Time 10:43 10:44 -Correct Patient Yes No -Correct Side, Site, Position Yes No -Correct Procedure Yes No -Procedure Performed Yes No -Type of Procedure Debridement -Clinical Debridement Subcutaneous -Tissue Removed Subcutaneous -Post Debridement (cm) - Length 3 -Post Debridement (cm) - Width 1.5 -Post Debridement (cm) - Depth 0.1 -Total Square (Post) (cm) 4.5 -Area of Debridement (cm) - Length 3 -Area of Debridement (cm) - Width 1.5 -Total Square (Area) (cm) 4.5 -Tunneling No No -Undermining/Tunneling No No -Circular Undermining No No -Wound/Ulcer Outcome Not Healed Not Healed -Ulcer Cleansing Rinsed/ Rinsed/ Irrigated with Irrigated with Saline Saline -Foul Odor after Cleansing No No -Bioengineered Tissue No No -Bleeding Controlled with Pressure Pressure -Treatment Response Procedure Procedure Tolerated Well Tolerated Well -Offloading No No -Debridement - Subq, 1st 20sq cm No No 10-RIGHT ANTERIOR SHOULDER -Time 10:43 10:45 -Correct Patient Yes Yes -Correct Side, Site, Position Yes Yes -Correct Procedure Yes Yes -Procedure Performed Yes Yes -Type of Procedure Debridement Debridement -Clinical Debridement Subcutaneous Subcutaneous -Tissue Removed Subcutaneous Subcutaneous -Post Debridement (cm) - Length 4.6 3.8 -Post Debridement (cm) - Width 3.7 4 -Post Debridement (cm) - Depth 0.1 0.1 -Total Square (Post) (cm) 17.02 15.2 -Area of Debridement (cm) - Length 4.6 3.8 -Area of Debridement (cm) - Width 3.7 4.0 -Total Square (Area) (cm) 17.02 15.20 -Tunneling No No -Undermining/Tunneling No No -Circular Undermining No No -Wound/Ulcer Outcome Not Healed Not Healed -Ulcer Cleansing Rinsed/ Rinsed/ Irrigated with Irrigated with Saline Saline -Foul Odor after Cleansing No No -Bioengineered Tissue No No -Bleeding Controlled with Pressure Pressure -Treatment Response Procedure Procedure Tolerated Well Tolerated Well -Offloading No No -Debridement - Subq, 20sq cm No No #5 mid chest -Time 10:45 10:45 -Correct Patient Yes Yes -Correct Side, Site, Position Yes Yes -Correct Procedure Yes Yes -Procedure Performed Yes Yes -Type of Procedure Debridement Debridement -Clinical Debridement Subcutaneous Subcutaneous -Tissue Removed Subcutaneous Subcutaneous -Post Debridement (cm) - Length 2.7 3.6 -Post Debridement (cm) - Width 4.3 2 -Post Debridement (cm) - Depth 0.1 0.1 -Total Square (Post) (cm) 11.61 7.2 -Area of Debridement (cm) - Length 2.7 3.6 -Area of Debridement (cm) - Width 4.3 2 -Total Square (Area) (cm) 11.61 7.2 -Tunneling No No -Undermining/Tunneling No No -Circular Undermining No No -Wound/Ulcer Outcome Not Healed Not Healed -Ulcer Cleansing Rinsed/ Rinsed/ Irrigated with Irrigated with Saline Saline -Foul Odor after Cleansing No No -Bioengineered Tissue No No -Bleeding Controlled with Pressure Pressure -Treatment Response Procedure Procedure Tolerated Well Tolerated Well -Offloading No No -Debridement - Subq, 20sq cm No No Pain Scale: 0-10 Numeric Is Patient Pain Free? Yes Yes - Nurse 3 - General Ulcer D/C NN Start: 01/29/23 10:09 Freq: Status: Active Protocol: Activity Type Activity Date Activity User E-sign Co-sign Detail Recorded Client Recorded Date Recorded By Document 01/29/23 13:53 PL [id number] 01/29/23 13:55 PL Document 02/05/23 11:16 RB [id number] 02/05/23 11:18 RB 01/29/23 02/05/23 13:53 11:16 Wound Care Center Nurse 3 15-left chest -Ulcer Cleansing Rinsed/ Irrigated with Saline -Foul Odor after Cleansing No -Primary Dressing Applied Other NonAdherent Contact Layer -Other Dressing Hydrogel. hydrogel adaptic -Primary Dressing Covered/Secured with Dry Gauze, Dry Gauze, Secured with Secured with Tape Tape 14.RLE cluster -Ulcer Cleansing Rinsed/ Irrigated with Saline -Foul Odor after Cleansing No -Primary Dressing Applied Silvercel -Other Dressing Hydrogel. abd adaptic -Primary Dressing Covered/Secured with Dry Gauze, Secured with Tape -Silvercel 1 13. LLE lateral -Ulcer Cleansing Rinsed/ Irrigated with Saline -Foul Odor after Cleansing No -Other Dressing Hydrogel. silvercel abd adaptic 10-RIGHT ANTERIOR SHOULDER -Ulcer Cleansing Rinsed/ Irrigated with Saline -Foul Odor after Cleansing No -Primary Dressing Applied NonAdherent Contact Layer -Other Dressing Hydrogel. hydrogel adaptic -Primary Dressing Covered/Secured with Dry Gauze, Secured with Tape #5 mid chest -Primary Dressing Applied NonAdherent Contact Layer -Other Dressing hydrogel -Primary Dressing Covered/Secured with Dry Gauze, Secured with Tape Bilateral -Multi-Layered Wrap Application Multi-Layer Multi-Layer Comp - Bilat ($ Comp - Bilat ($ ) ) Pain Scale: 0-10 Numeric Is Patient Pain Free? Yes Yes - Visit Discharge Discharge Condition Stable Ambulatory Status Ambulatory,Cane Transportation Private Auto Medication Reconcilliation completed & No provided to patient/care provider Clinical Summary of Care Provided Yes Assessment/Plan Assessment/Plan (1) Ulcer of chest wall, limited to breakdown of skin: CODE(S): L98.491 - Non-pressure chronic ulcer of skin of other sites limited to breakdown of skin (2) Ulcer of left lower extremity, limited to breakdown of skin: CODE(S): L97.921 - Non-pressure chronic ulcer of unspecified part of left lower leg limited to breakdown of skin (3) Ulcer of right lower extremity, limited to breakdown of skin: CODE(S): L97.911 - Non-pressure chronic ulcer of unspecified part of right lower leg limited to breakdown of skin (4) Age-related physical debility: CODE(S): R54 - Age-related physical debility (5) Edema of both legs: CODE(S): R60.0 - Localized edema (6) Skin-picking disorder: CODE(S): F42.4 - Excoriation (skin-picking) disorder PLAN: Plan Patient evaluated at the wound healing center today. Wound care to the right anterior shoulder, medial chest and left chest place moistened Collagen hydrogel, cover with adaptic and cover with gauze daily. Wash the ulcers with soap and water daily at the time of the dressing changes. To the right leg and left lateral leg wound place Silvercel to the larger ulcers and place adaptic on the smaller ulcers and top with gauze daily. Compression - 3M 2layer wraps bilaterally. Did not debride the leg ulcers, only debrided the chest ulcers. A wound culture was obtained on 11/14/22 of the upper chest/anterior shoulder ulcers which was positive for Staphylococcus aureus, Kocuria kristinae and Gram positive faraz. He has completed the Doxycycline. He has [employer] to help with the wound care. Stressed importance of not picking at these ulcers. Keep legs elevated when sitting. Encouraged to sleep in a bed, but he has slept in a recliner for 30 years. He was evaluated by Dermatology last week. He is to continue the medication that they placed him on. Awaiting biopsy results. Follow up one week.
[2023-02-12 10:18] VITALS: BP 127/72; PULSE 68; RESP 20; TEMP 36.4; BMI 40.6
--- NOTE | 2023-02-12 12:08 | PN.PCM_ITS ---
History of Present Illness Date of Service: 02/12/23 Chief Complaint: Superficial ulcers to bilateral lower legs History of Wound: Patient is a 78 year old male who has multiple skin lesions scattered over his chest, arms, hands and abdomen and legs. The initial skin lesions started from a bed bugs which were causing him to scratch. He was hospitalized at the end of August for sepsis and cellulitis. He was discharged to [facility]. He has since been discharged home and has home health from [facility]. He does admit to picking at the scabbing. He has not been consistently putting anything on these areas. He is on Warfarin for history of PE, also has a history of HTN, CKD II, anemia, RAAD, bilateral leg edema and debility. He was evaluated by Dermatology. His biopsy results showed Bullous pemphigoid. Dermatology placed him on steroids oral and cream and started him on Dupixent. He denies fever, chills, nausea, vomiting. Progress of Wound: Right anterior shoulder ulcer, upper mid to left chest ulcers are stable. They all have dry scabbing surrounding the ulcers even with the collagen hydrogel and adaptic. He states he is changing the dressings daily. The skin tears on his right leg cluster and left lateral leg ulcer are pink, and smaller in size. Objective Data Objective Data Vital Signs: Vital Signs Temp Pulse Resp BP 97.5 F L 68 20 H 127/72 H 02/12/23 10:18 02/12/23 10:18 02/12/23 10:18 02/12/23 10:18 Weight: 300 lb Body Mass Index (BMI) 40.6 Charges/Coding Addendum Addendum: Selective debridement 72353 and 51560 x 1 Debridement Note Debridement Note Wound debrided: (#5) mid chest, (#10) Right anterior shoulder, (#15) left chest Wound Grade/Stage: Stage II Type of Debridement: Selective debridement Anesthesia Used: 4% Lidocaine Solution Depth: Down to and including healthy tissue and in the subcutaneous layer Percentage of wound debrided: 100 Tissue Removed: Devitalized tissue and slough Severity: Limited To Skin Breakdown Amount of bleeding with debridement: Mild Bleeding Controlled with: Pressure and Compression and gauze Patient tolerated procedure: Patient tolerated procedure well Debridement Free Text: Selective debridement using gauze to the chest/shoulder ulcers to remove the scabbing surrounding them. Post-Debridement Measurements and Additional Note: Post-Debridement Measurements/Treatment WC - Nurse 1 - General Ulcer Assessment Start: 01/29/23 10:09 Freq: Status: Active Protocol: DORY Activity Type Activity Date Activity User E-sign Co-sign Detail Recorded Client Recorded Date Recorded By Document 01/29/23 10:09 PL [id number] 01/29/23 10:38 PL Document 02/05/23 10:11 RB [id number] 02/05/23 10:29 RB Document 02/12/23 10:18 DL [id number] 02/12/23 10:33 DL 01/29/23 02/05/23 02/12/23 10:09 10:11 10:18 WC - Today's Visit Information Type of service Follow-up Visit Follow-up Visit Follow-up Visit (Physician/DEVELOPMENT MANAGER (Physician/DEVELOPMENT MANAGER (Physician/DEVELOPMENT MANAGER ) ) ) Arrival Mode Ambulatory Ambulatory Ambulatory Transfer Assistance None None None Patient Identification Verified (Name & Yes Yes Yes ) Patient Requires Transmission-Based No No No Precautions Safety Precautions NA NA Height and Weight Body Mass Index (BMI) 40.6 40.6 40.6 BMI Classification Obese Obese Obese Vital Signs Temperature (97.8 F-99.1 F) 96.0 F L 96.7 F L 97.5 F L Temperature Source Temporal Temporal Temporal Pulse Rate (60-100) 78 80 68 Pulse Location Monitor Monitor Respiratory Rate (12-18) 20 H 18 20 H Respiratory rate source Observation Observation Blood Pressure (90/60-120/80) 127/69 H 140/83 H 127/72 H Blood Pressure Mean (mm Hg) 88 102 90 Source Monitor Monitor Position Semi-Fowlers Blood Pressure Location Left Arm History Since Last Visit- (Skip if this is Patient's initial visit) Have you changed medications since your No No No last visit? Any new allergies or adverse reactions No No No Had a fall/change in ADL's that may No No No increase risk of falls Signs or symptoms of abuse and/or No No neglect since last visit Have you been in the hospital since your No No No last visit? Has dressing in place as prescribed Yes Yes Yes Has compression in place as prescribed Yes Yes Yes Has offloadiing in place as prescribed Yes No N/A Experienced any changes in pain level or No No No management Pain Scale: 0-10 Numeric Is Patient Pain Free? Yes Yes Yes WC - Nurse 1 - General Ulcer Measurement Start: 01/29/23 10:09 Freq: Status: Active Protocol: Activity Type Activity Date Activity User E-sign Co-sign Detail Recorded Client Recorded Date Recorded By Document 01/29/23 10:09 PL [id number] 01/29/23 10:38 PL Document 02/05/23 10:11 RB [id number] 02/05/23 10:29 RB Document 02/12/23 10:18 DL [id number] 02/12/23 10:33 DL 01/29/23 02/05/23 02/12/23 10:09 10:11 10:18 Wound Center Nurse 1 15-left chest -Combined with other wound No -Current Size (cm) - Length 4.5 4 3.3 -Current Size (cm) - Width 2 2 1.5 -Current Size (cm) - Depth 0.1 0.1 0.1 -Total Square Cm 9.0 8 4.95 -Photo Taken Yes -Tunneling No -Undermining/Tunneling No -Circular Undermining No -Exudate Amt Medium Small -Exudate Type Serosanguineous Serosanguineous -Wound Margin Distinct, Distinct, Outline Outline Attached Attached -Granulation Amt Medium (34-66%) Small (1-33%) -Granulation Quality [place] -Slough/Fibrin Yes -Necrosis Amt Medium (34-66%) Large (67-100%) -Necrotic Tissue Type Adherent Slough Adherent Slough -Structure Exposed N/A N/A -Texture (Uyen-wound Skin Appearance) Excoriation Scarring -Moisture (Uyen-wound Skin Appearance) Assessed Dry/Scaly -Color (Uyen-wound Skin Appearance) Assessed No Abnormality -Temperature (Uyen-wound Skin No Abnormality No Abnormality Appearance) (Pt Warm) (Pt Warm) -Tenderness on Palpation (Uyen-wound No No Skin Appearance) -Ulcer Cleansing Wound Cleanser Soap and Water -Foul Odor after Cleansing No No -Anesthetic Used 5% Lidocaine 5% Lidocaine Gel Gel 14.RLE cluster -Combined with other wound No -Current Size (cm) - Length 28.5 14.5 13.7 -Current Size (cm) - Width 11 9 5.3 -Current Size (cm) - Depth 0.1 0.1 0.1 -Total Square Cm 313.5 130.5 72.61 -Photo Taken Yes -Tunneling No -Undermining/Tunneling No -Circular Undermining No -Exudate Amt Medium Medium -Exudate Type Serosanguineous Serosanguineous -Wound Margin Distinct, Distinct, Outline Outline Attached Attached -Granulation Amt Medium (34-66%) Large (67-100%) -Granulation Quality [place] Red -Slough/Fibrin Yes -Necrosis Amt Medium (34-66%) None Present (0 %) -Necrotic Tissue Type Adherent Slough -Structure Exposed N/A N/A -Texture (Uyen-wound Skin Appearance) Excoriation Scarring -Moisture (Uyen-wound Skin Appearance) Assessed Dry/Scaly -Color (Uyen-wound Skin Appearance) Assessed Hemosiderin Staining -Temperature (Uyen-wound Skin No Abnormality No Abnormality Appearance) (Pt Warm) (Pt Warm) -Tenderness on Palpation (Uyen-wound No Skin Appearance) -Ulcer Cleansing Wound Cleanser Soap and Water -Foul Odor after Cleansing No No -Anesthetic Used 5% Lidocaine 5% Lidocaine Gel Gel 13. LLE lateral -Combined with other wound No -Current Size (cm) - Length 2.5 8 2.2 -Current Size (cm) - Width 2.5 5 1 -Current Size (cm) - Depth 0.1 0.1 0.1 -Total Square Cm 6.25 40 2.2 -Photo Taken Yes -Tunneling No -Undermining/Tunneling No -Circular Undermining No -Exudate Amt Medium Small -Exudate Type Serosanguineous Serosanguineous -Wound Margin Distinct, Distinct, Outline Outline Attached Attached -Granulation Amt Medium (34-66%) Large (67-100%) -Granulation Quality [place] -Slough/Fibrin Yes -Necrosis Amt Medium (34-66%) Small (1-33%) -Necrotic Tissue Type Adherent Slough Adherent Slough -Structure Exposed N/A N/A -Texture (Uyen-wound Skin Appearance) Assessed, Scarring Excoriation -Moisture (Uyen-wound Skin Appearance) Assessed Dry/Scaly -Color (Uyen-wound Skin Appearance) Assessed Hemosiderin Staining -Temperature (Uyen-wound Skin No Abnormality Appearance) (Pt Warm) -Tenderness on Palpation (Uyen-wound No No Skin Appearance) -Ulcer Cleansing Wound Cleanser Soap and Water -Foul Odor after Cleansing No No -Anesthetic Used 5% Lidocaine 5% Lidocaine Gel Gel 10-RIGHT ANTERIOR SHOULDER -Combined with other wound No -Current Size (cm) - Length 2 4 3.4 -Current Size (cm) - Width 3 3 2.2 -Current Size (cm) - Depth 0.1 0.1 0.1 -Total Square Cm 6 12 7.48 -Photo Taken Yes -Tunneling No -Undermining/Tunneling No -Circular Undermining No -Exudate Amt Medium Medium -Exudate Type Serosanguineous Serosanguineous -Wound Margin Distinct, Distinct, Outline Outline Attached Attached -Granulation Amt Medium (34-66%) Medium (34-66%) -Granulation Quality [place] Red -Slough/Fibrin Yes -Necrosis Amt Medium (34-66%) Medium (34-66%) -Necrotic Tissue Type Adherent Slough Adherent Slough -Structure Exposed N/A N/A -Texture (Uyen-wound Skin Appearance) Assessed, Scarring Excoriation -Moisture (Uyen-wound Skin Appearance) Assessed Dry/Scaly -Color (Uyen-wound Skin Appearance) Assessed No Abnormality -Temperature (Uyen-wound Skin No Abnormality No Abnormality Appearance) (Pt Warm) (Pt Warm) -Tenderness on Palpation (Uyen-wound No No Skin Appearance) -Ulcer Cleansing Wound Cleanser Soap and Water -Foul Odor after Cleansing No No -Anesthetic Used 5% Lidocaine 5% Lidocaine Gel Gel #5 mid chest -Combined with other wound No -Current Size (cm) - Length 3 5 3 -Current Size (cm) - Width 2.7 6 2.5 -Current Size (cm) - Depth 0.1 0.1 0.1 -Total Square Cm 8.1 30 7.5 -Photo Taken Yes -Tunneling No -Undermining/Tunneling No -Circular Undermining No -Exudate Amt Medium Medium -Exudate Type Serosanguineous Serosanguineous -Wound Margin Distinct, Distinct, Outline Outline Attached Attached -Granulation Amt Medium (34-66%) Medium (34-66%) -Granulation Quality [place] Red -Slough/Fibrin Yes -Necrosis Amt Medium (34-66%) Medium (34-66%) -Necrotic Tissue Type Adherent Slough Adherent Slough -Structure Exposed N/A N/A -Texture (Uyen-wound Skin Appearance) Excoriation Scarring -Moisture (Uyen-wound Skin Appearance) Assessed Dry/Scaly -Color (Uyen-wound Skin Appearance) Assessed No Abnormality -Temperature (Yuen-wound Skin No Abnormality No Abnormality Appearance) (Pt Warm) (Pt Warm) -Tenderness on Palpation (Uyen-wound No No Skin Appearance) -Ulcer Cleansing Wound Cleanser Soap and Water -Foul Odor after Cleansing No No -Anesthetic Used 5% Lidocaine 5% Lidocaine Gel Gel Lower Limb Edema Present Yes Right Calf (cm) 51 Right Ankle (cm) 26 Left Calf (cm) 51 Left Ankle (cm) 27 WC - Nurse 2 - General Ulcer CM Notes Start: 01/29/23 10:09 Freq: Status: Active Protocol: Activity Type Activity Date Activity User E-sign Co-sign Detail Recorded Client Recorded Date Recorded By Document 01/29/23 10:36 [id number] 01/29/23 10:52 Document 02/05/23 10:41 [id number] 02/05/23 10:54 Document 02/12/23 10:47 [id number] 02/12/23 10:57 01/29/23 02/05/23 02/12/23 10:36 10:41 10:47 Wound Center Nurse 2 15-left chest -Time 10:41 10:43 10:50 -Correct Patient Yes Yes Yes -Correct Side, Site, Position Yes Yes Yes -Correct Procedure Yes Yes Yes -Procedure Performed Yes Yes Yes -Type of Procedure Debridement Debridement Debridement -Clinical Debridement Subcutaneous Subcutaneous Epidermis / Dermis -Tissue Removed Subcutaneous Subcutaneous Epidermis, Dermis -Post Debridement (cm) - Length 4.5 3.8 3.0 -Post Debridement (cm) - Width 3.3 2 1.7 -Post Debridement (cm) - Depth 0.1 0.1 0.1 -Total Square (Post) (cm) 14.85 7.6 5.10 -Area of Debridement (cm) - Length 4.5 3.8 3.0 -Area of Debridement (cm) - Width 3.3 2.5 1.7 -Total Square (Area) (cm) 14.85 9.50 5.10 -Tunneling No No -Undermining/Tunneling No No -Circular Undermining No No -Wound/Ulcer Outcome Not Healed Not Healed Not Healed -Ulcer Cleansing Rinsed/ Rinsed/ Irrigated with Irrigated with Saline Saline -Foul Odor after Cleansing No No -Bioengineered Tissue No No -Bleeding Controlled with Pressure Pressure -Treatment Response Procedure Procedure Procedure Tolerated Well Tolerated Well Tolerated Well -Offloading No No -Debridement - Open, 1st 20sq cm Yes -Debridement - Subq, 1st 20sq cm Yes Yes -Debridement, SubQ, ea addt'l 20sq cm 13 1 or part thereof 14.RLE cluster -Time 10:42 10:44 -Correct Patient Yes No No -Correct Side, Site, Position Yes No No -Correct Procedure Yes No No -Procedure Performed Yes No No -Type of Procedure Debridement -Clinical Debridement Subcutaneous -Tissue Removed Subcutaneous -Post Debridement (cm) - Length 29 -Post Debridement (cm) - Width 8 -Post Debridement (cm) - Depth 0.1 -Total Square (Post) (cm) 232 -Area of Debridement (cm) - Length 29 -Area of Debridement (cm) - Width 8 -Total Square (Area) (cm) 232 -Tunneling No No -Undermining/Tunneling No No -Circular Undermining No No -Wound/Ulcer Outcome Not Healed Not Healed Not Healed -Ulcer Cleansing Rinsed/ Rinsed/ Irrigated with Irrigated with Saline Saline -Foul Odor after Cleansing No No -Bioengineered Tissue No No -Bleeding Controlled with Pressure Pressure -Treatment Response Procedure Procedure Tolerated Well Tolerated Well -Offloading No No -Debridement - Subq, 1st 20sq cm No No 13. LLE lateral -Time 10:43 10:44 -Correct Patient Yes No No -Correct Side, Site, Position Yes No No -Correct Procedure Yes No No -Procedure Performed Yes No No -Type of Procedure Debridement -Clinical Debridement Subcutaneous -Tissue Removed Subcutaneous -Post Debridement (cm) - Length 3 -Post Debridement (cm) - Width 1.5 -Post Debridement (cm) - Depth 0.1 -Total Square (Post) (cm) 4.5 -Area of Debridement (cm) - Length 3 -Area of Debridement (cm) - Width 1.5 -Total Square (Area) (cm) 4.5 -Tunneling No No -Undermining/Tunneling No No -Circular Undermining No No -Wound/Ulcer Outcome Not Healed Not Healed Not Healed -Ulcer Cleansing Rinsed/ Rinsed/ Irrigated with Irrigated with Saline Saline -Foul Odor after Cleansing No No -Bioengineered Tissue No No -Bleeding Controlled with Pressure Pressure -Treatment Response Procedure Procedure Tolerated Well Tolerated Well -Offloading No No -Debridement - Subq, 1st 20sq cm No No 10-RIGHT ANTERIOR SHOULDER -Time 10:43 10:45 -Correct Patient Yes Yes Yes -Correct Side, Site, Position Yes Yes Yes -Correct Procedure Yes Yes Yes -Procedure Performed Yes Yes Yes -Type of Procedure Debridement Debridement Debridement -Clinical Debridement Subcutaneous Subcutaneous Epidermis / Dermis -Tissue Removed Subcutaneous Subcutaneous Epidermis, Dermis -Post Debridement (cm) - Length 4.6 3.8 3.7 -Post Debridement (cm) - Width 3.7 4 2.5 -Post Debridement (cm) - Depth 0.1 0.1 0.1 -Total Square (Post) (cm) 17.02 15.2 9.25 -Area of Debridement (cm) - Length 4.6 3.8 3.7 -Area of Debridement (cm) - Width 3.7 4.0 2.5 -Total Square (Area) (cm) 17.02 15.20 9.25 -Tunneling No No -Undermining/Tunneling No No -Circular Undermining No No -Wound/Ulcer Outcome Not Healed Not Healed Not Healed -Ulcer Cleansing Rinsed/ Rinsed/ Irrigated with Irrigated with Saline Saline -Foul Odor after Cleansing No No -Bioengineered Tissue No No -Bleeding Controlled with Pressure Pressure -Treatment Response Procedure Procedure Tolerated Well Tolerated Well -Offloading No No -Debridement - Open, 1st 20sq cm No -Debridement - Subq, 1st 20sq cm No No #5 mid chest -Time 10:45 10:45 10:53 -Correct Patient Yes Yes Yes -Correct Side, Site, Position Yes Yes Yes -Correct Procedure Yes Yes Yes -Procedure Performed Yes Yes Yes -Type of Procedure Debridement Debridement Debridement -Clinical Debridement Subcutaneous Subcutaneous Epidermis / Dermis -Tissue Removed Subcutaneous Subcutaneous Epidermis, Dermis -Post Debridement (cm) - Length 2.7 3.6 3.7 -Post Debridement (cm) - Width 4.3 2 1.8 -Post Debridement (cm) - Depth 0.1 0.1 0.1 -Total Square (Post) (cm) 11.61 7.2 6.66 -Area of Debridement (cm) - Length 2.7 3.6 3.7 -Area of Debridement (cm) - Width 4.3 2 1.8 -Total Square (Area) (cm) 11.61 7.2 6.66 -Tunneling No No -Undermining/Tunneling No No -Circular Undermining No No -Wound/Ulcer Outcome Not Healed Not Healed Not Healed -Ulcer Cleansing Rinsed/ Rinsed/ Irrigated with Irrigated with Saline Saline -Foul Odor after Cleansing No No -Bioengineered Tissue No No -Bleeding Controlled with Pressure Pressure -Treatment Response Procedure Procedure Tolerated Well Tolerated Well -Offloading No No -Debridement - Open, 1st 20sq cm No -Debridement - Subq, 1st 20sq cm No No Pain Scale: 0-10 Numeric Is Patient Pain Free? Yes Yes Yes WC - Nurse 3 - General Ulcer D/C NN Start: 01/29/23 10:09 Freq: Status: Active Protocol: Activity Type Activity Date Activity User E-sign Co-sign Detail Recorded Client Recorded Date Recorded By Document 01/29/23 13:53 PL [id number] 01/29/23 13:55 PL Document 02/05/23 11:16 RB [id number] 02/05/23 11:18 RB Document 02/12/23 11:14 BM [id number] 02/12/23 11:18 BMF 01/29/23 02/05/23 02/12/23 13:53 11:16 11:14 Wound Care Center Nurse 3 15-left chest -Ulcer Cleansing Rinsed/ Rinsed/ Irrigated with Irrigated with Saline Saline -Foul Odor after Cleansing No No -Primary Dressing Applied Other NonAdherent NonAdherent Contact Layer Contact Layer -Other Dressing Hydrogel. hydrogel DRSG PER DL BLACK TOP MACHINE OPERATOR adaptic -Primary Dressing Covered/Secured with Dry Gauze, Dry Gauze, Dry Gauze, Secured with Secured with Secured with Tape Tape Tape 14.RLE cluster -Ulcer Cleansing Rinsed/ Rinsed/ Irrigated with Irrigated with Saline Saline -Foul Odor after Cleansing No No -Primary Dressing Applied Silvercel NonAdherent Contact Layer -Other Dressing Hydrogel. abd DRSG PER DL BLACK TOP MACHINE OPERATOR adaptic -Primary Dressing Covered/Secured with Dry Gauze, Dry Gauze & Secured with Roll Gauze, Tape Secured with Tape -Silvercel 1 13. LLE lateral -Ulcer Cleansing Rinsed/ Rinsed/ Irrigated with Irrigated with Saline Saline -Foul Odor after Cleansing No No -Primary Dressing Applied NonAdherent Contact Layer -Other Dressing Hydrogel. silvercel abd DRSG PER DL BLACK TOP MACHINE OPERATOR adaptic -Primary Dressing Covered/Secured with Dry Gauze & Roll Gauze, Secured with Tape 10-RIGHT ANTERIOR SHOULDER -Ulcer Cleansing Rinsed/ Rinsed/ Irrigated with Irrigated with Saline Saline -Foul Odor after Cleansing No No -Primary Dressing Applied NonAdherent NonAdherent Contact Layer Contact Layer -Other Dressing Hydrogel. hydrogel DRSG PER DL BLACK TOP MACHINE OPERATOR adaptic -Primary Dressing Covered/Secured with Dry Gauze, Dry Gauze, Secured with Secured with Tape Tape #5 mid chest -Ulcer Cleansing Rinsed/ Irrigated with Saline -Foul Odor after Cleansing No -Primary Dressing Applied NonAdherent NonAdherent Contact Layer Contact Layer -Other Dressing hydrogel DRSG PER DL BLACK TOP MACHINE OPERATOR -Primary Dressing Covered/Secured with Dry Gauze, Dry Gauze, Secured with Secured with Tape Tape Bilateral -Multi-Layered Wrap Application Multi-Layer Multi-Layer Multi-Layer Comp - Bilat ($ Comp - Bilat ($ Comp - Bilat ($ ) ) ) -Other PER DL BLACK TOP MACHINE OPERATOR Treatment Response Procedure Tolerated Well Pain Scale: 0-10 Numeric Is Patient Pain Free? Yes Yes Yes WC - Visit Discharge Discharge Condition Stable Stable Ambulatory Status Ambulatory,Cane Ambulatory Transportation Private Auto Accompanied by TIAN Medication Reconcilliation completed & No provided to patient/care provider Clinical Summary of Care Provided Yes Assessment/Plan Assessment/Plan (1) Ulcer of chest wall, limited to breakdown of skin: CODE(S): L98.491 - Non-pressure chronic ulcer of skin of other sites limited to breakdown of skin (2) Ulcer of left lower extremity, limited to breakdown of skin: CODE(S): L97.921 - Non-pressure chronic ulcer of unspecified part of left lower leg limited to breakdown of skin (3) Ulcer of right lower extremity, limited to breakdown of skin: CODE(S): L97.911 - Non-pressure chronic ulcer of unspecified part of right lower leg limited to breakdown of skin (4) Age-related physical debility: CODE(S): R54 - Age-related physical debility (5) Edema of both legs: CODE(S): R60.0 - Localized edema (6) Skin-picking disorder: CODE(S): F42.4 - Excoriation (skin-picking) disorder PLAN: Plan Patient evaluated at the wound healing center today. Wound care to the right anterior shoulder, medial chest and left chest place adaptic and cover with gauze daily. Wash the ulcers with soap and water daily at the time of the dressing changes. To the right leg and left lateral leg wound place adaptic to the larger ulcers and place adaptic on the smaller ulcers and top with gauze daily. Compression - 3M 2layer wraps bilaterally. Applied to insurance for approval for Juxtalite compression stockings. A wound culture was obtained on 11/14/22 of the upper chest/anterior shoulder ulcers which was positive for Staphylococcus aureus, Kocuria kristinae and Gram positive faraz. He has completed the Doxycycline. He has [employer] to help with the wound care. Stressed importance of not picking at these ulcers. Keep legs elevated when sitting. Encouraged to sleep in a bed, but he has slept in a recliner for 30 years. He was evaluated by Dermatology last week. His biopsy results showed Bullous pemphigoid. Dermatology placed him on steroids oral and cream and started him on Dupixent. Follow up one week for a nurses visit to have 3M 2 layer wraps change. Follow up 2 weeks to see me.
[2023-02-19 11:17] VITALS: BP 119/65; PULSE 68; RESP 18; TEMP 35.9; BMI 40.6
== END 2023-02-25 23:59 | disposition home or self-care (01) ==
LOC: WC 11:30
PROVIDERS: PCP Nurse Practitioner Family; Referring Provider Nurse Practitioner Family; Visit Provider Nurse Practitioner Family
DX: L97.911 Non-pressure chronic ulcer of unspecified part of right lower leg limited to breakdown of skin (principal); L97.921 Non-pressure chronic ulcer of unspecified part of left lower leg limited to breakdown of skin; L98.492 Non-pressure chronic ulcer of skin of other sites with fat layer exposed; L98.491 Non-pressure chronic ulcer of skin of other sites limited to breakdown of skin; I10 Essential (primary) hypertension; R60.0 Localized edema; F42.4 Excoriation (skin-picking) disorder; R54 Age-related physical debility
CPT/HCPCS: 11042; 11045; 29581; 97597; 97598; 99211; G0463

== ENCOUNTER 2023-03-28 13:00 | Outpatient (RCR) | payer MEDICARE, MEDICAID, SELFPAY ==
[2023-02-26 00:21] VITALS: BP 119/65; PULSE 68; RESP 18; TEMP 35.9; BMI 40.6
[2023-02-26 10:14] VITALS: BP 137/78; PULSE 72; RESP 18; TEMP 36.4; BMI 40.6
--- NOTE | 2023-02-26 12:30 | PN.PCM_ITS ---
History of Present Illness Date of Service: 02/26/23 Chief Complaint: Superficial ulcers to bilateral lower legs History of Wound: Patient is a 78 year old male who has multiple skin lesions scattered over his chest, arms, hands and abdomen and legs. The initial skin lesions started from a bed bugs which were causing him to scratch. He was hospitalized at the end of August for sepsis and cellulitis. He was discharged to [facility]. He has since been discharged home and has home health from [facility]. He does admit to picking at the scabbing. He has not been consistently putting anything on these areas. He is on Warfarin for history of PE, also has a history of HTN, CKD II, anemia, RAAD, bilateral leg edema and debility. He was evaluated by Dermatology. His biopsy results showed Bullous pemphigoid. Dermatology placed him on steroids oral and cream and started him on Dupixent. He denies fever, chills, nausea, vomiting. Progress of Wound: Right anterior shoulder ulcer, upper mid chest and left chest ulcers are slightly smaller. They all have dry scabbing surrounding the ulcers. He has ulcers on his legs that started as skin tears. Right leg cluster ulcers and left lateral leg ulcers are slightly smaller, beefy pink, superficial. New ulcer on left anterior leg ulcer. Objective Data Objective Data Vital Signs: Vital Signs Temp Pulse Resp BP 97.5 F L 72 18 137/78 H 02/26/23 10:14 02/26/23 10:14 02/26/23 10:14 02/26/23 10:14 Weight: 300 lb Body Mass Index (BMI) 40.6 Charges/Coding Addendum Addendum: 55269 and 08146 x 3 bilateral leg ulcers Procedures Integumentary 111xxx-113xx: 11384 Roxie subq tissue 20 sq cm/< (right anterior shoulder, mid chest and left chest) Add On Codes: 07544 Roxie subq tissue add-on (x1 right anterior shoulder, mid chest and left chest) Debridement Note Debridement Note Wound debrided: (#5) mid chest, (#10) Right anterior shoulder, (#15) left chest Wound Grade/Stage: Stage II Type of Debridement: Excisional debridement Anesthesia Used: 4% Lidocaine Solution Depth: Down to and including healthy tissue and in the subcutaneous layer Percentage of wound debrided: 100 Tissue Removed: Devitalized tissue and slough Severity: Limited To Skin Breakdown Amount of bleeding with debridement: Mild Bleeding Controlled with: Pressure and Compression and gauze Patient tolerated procedure: Patient tolerated procedure well Post-Debridement Measurements and Additional Note: Post-Debridement Measurements/Treatment - Nurse 1 - General Ulcer Assessment Start: 02/26/23 10:14 Freq: Status: Active Protocol: DORY Activity Type Activity Date Activity User E-sign Co-sign Detail Recorded Client Recorded Date Recorded By Document 02/26/23 10:14 DL [id number] 02/26/23 10:38 DL 02/26/23 10:14 WC - Today's Visit Information Type of service Follow-up Visit (Physician/INGREDIENT MIXER ) Arrival Mode Ambulatory Transfer Assistance None Patient Identification Verified (Name & Yes ) Patient Requires Transmission-Based No Precautions Height and Weight Body Mass Index (BMI) 40.6 BMI Classification Obese Vital Signs Temperature (97.8 F-99.1 F) 97.5 F L Temperature Source Temporal Pulse Rate (60-100) 72 Pulse Location Monitor Respiratory Rate (12-18) 18 Respiratory rate source Observation Blood Pressure (90/60-120/80) 137/78 H Blood Pressure Mean (mm Hg) 97 Source Monitor History Since Last Visit- (Skip if this is Patient's initial visit) Have you changed medications since your No last visit? Any new allergies or adverse reactions No Had a fall/change in ADL's that may No increase risk of falls Signs or symptoms of abuse and/or No neglect since last visit Have you been in the hospital since your No last visit? Has dressing in place as prescribed Yes Has compression in place as prescribed Yes Has offloadiing in place as prescribed N/A Experienced any changes in pain level or No management Pain Scale: 0-10 Numeric Is Patient Pain Free? Yes - Nurse 1 - General Ulcer Measurement Start: 02/26/23 10:14 Freq: Status: Active Protocol: Activity Type Activity Date Activity User E-sign Co-sign Detail Recorded Client Recorded Date Recorded By Document 02/26/23 10:14 DL [id number] 02/26/23 10:38 DL 02/26/23 10:14 Wound Center Nurse 1 #16 L Anterior leg -Current Size (cm) - Length 8.5 -Current Size (cm) - Width 4 -Current Size (cm) - Depth 0.1 -Total Square Cm 34.0 -Photo Taken Yes -Exudate Amt Medium -Wound Margin Distinct, Outline Attached -Granulation Amt Large (67-100%) -Granulation Quality Red -Necrosis Amt Small (1-33%) -Necrotic Tissue Type Adherent Slough -Structure Exposed N/A -Texture (Uyen-wound Skin Appearance) Scarring -Moisture (Uyen-wound Skin Appearance) No Abnormality -Color (Uyen-wound Skin Appearance) Hemosiderin Staining -Temperature (Uyen-wound Skin No Abnormality Appearance) (Pt Warm) -Tenderness on Palpation (Uyen-wound No Skin Appearance) -Ulcer Cleansing Soap and Water -Foul Odor after Cleansing No -Anesthetic Used 4% Lidocaine Solution 15-left chest -Current Size (cm) - Length 2.2 -Current Size (cm) - Width 1.6 -Current Size (cm) - Depth 0.1 -Total Square Cm 3.52 -Photo Taken No -Exudate Amt None Present -Wound Margin Thickened -Granulation Amt None Present (0 %) -Necrosis Amt Large (67-100%) -Necrotic Tissue Type Adherent Slough -Structure Exposed N/A -Texture (Uyen-wound Skin Appearance) Scarring -Moisture (Uyen-wound Skin Appearance) No Abnormality -Color (Uyen-wound Skin Appearance) No Abnormality -Temperature (Uyen-wound Skin No Abnormality Appearance) (Pt Warm) -Tenderness on Palpation (Uyen-wound No Skin Appearance) -Ulcer Cleansing Soap and Water -Foul Odor after Cleansing No -Anesthetic Used 4% Lidocaine Solution 14.RLE cluster -Current Size (cm) - Length 5.2 -Current Size (cm) - Width 13.5 -Current Size (cm) - Depth 0.1 -Total Square Cm 70.20 -Photo Taken No -Exudate Amt Small -Exudate Type Serosanguineous -Wound Margin Indistinct, Non -Visible -Granulation Amt Large (67-100%) -Granulation Quality Red -Necrosis Amt Small (1-33%) -Necrotic Tissue Type Adherent Slough -Structure Exposed N/A -Texture (Uyen-wound Skin Appearance) Scarring -Moisture (Uyen-wound Skin Appearance) No Abnormality -Color (Uyen-wound Skin Appearance) Hemosiderin Staining -Temperature (Uyen-wound Skin No Abnormality Appearance) (Pt Warm) -Tenderness on Palpation (Uyen-wound No Skin Appearance) -Ulcer Cleansing Soap and Water -Foul Odor after Cleansing No -Anesthetic Used 4% Lidocaine Solution 13. LLE lateral -Current Size (cm) - Length 5.5 -Current Size (cm) - Width 6 -Current Size (cm) - Depth 0.1 -Total Square Cm 33.0 -Photo Taken No -Exudate Amt Medium -Exudate Type Serosanguineous -Wound Margin Distinct, Outline Attached -Granulation Amt Large (67-100%) -Granulation Quality Red -Necrosis Amt Small (1-33%) -Necrotic Tissue Type Adherent Slough -Structure Exposed N/A -Texture (Uyen-wound Skin Appearance) Scarring -Moisture (Uyen-wound Skin Appearance) No Abnormality -Color (Uyen-wound Skin Appearance) Hemosiderin Staining -Temperature (Uyen-wound Skin No Abnormality Appearance) (Pt Warm) -Tenderness on Palpation (Uyen-wound No Skin Appearance) -Ulcer Cleansing Soap and Water -Foul Odor after Cleansing No -Anesthetic Used 4% Lidocaine Solution 10-RIGHT ANTERIOR SHOULDER -Current Size (cm) - Length 3.8 -Current Size (cm) - Width 2.8 -Current Size (cm) - Depth 0.1 -Total Square Cm 10.64 -Photo Taken No -Exudate Amt Medium -Exudate Type Serosanguineous -Wound Margin Thickened -Granulation Amt Medium (34-66%) -Granulation Quality Hyper- granulation,Red -Necrosis Amt Medium (34-66%) -Necrotic Tissue Type Adherent Slough -Structure Exposed N/A -Texture (Uyen-wound Skin Appearance) Scarring -Moisture (Uyen-wound Skin Appearance) No Abnormality -Color (Uyen-wound Skin Appearance) No Abnormality -Temperature (Uyen-wound Skin No Abnormality Appearance) (Pt Warm) -Tenderness on Palpation (Uyen-wound No Skin Appearance) -Ulcer Cleansing Soap and Water -Foul Odor after Cleansing No -Anesthetic Used 5% Lidocaine Gel #5 mid chest -Current Size (cm) - Length 3 -Current Size (cm) - Width 2.2 -Current Size (cm) - Depth 0.1 -Total Square Cm 6.6 -Photo Taken No -Exudate Amt Medium -Exudate Type Serosanguineous -Wound Margin Thickened -Granulation Amt Medium (34-66%) -Granulation Quality Hyper- granulation,Red -Necrosis Amt Medium (34-66%) -Necrotic Tissue Type Adherent Slough -Structure Exposed N/A -Texture (Uyen-wound Skin Appearance) Scarring -Moisture (Uyen-wound Skin Appearance) Dry/Scaly -Color (Uyen-wound Skin Appearance) No Abnormality -Temperature (Uyen-wound Skin No Abnormality Appearance) (Pt Warm) -Tenderness on Palpation (Uyen-wound No Skin Appearance) -Ulcer Cleansing Soap and Water -Foul Odor after Cleansing No -Anesthetic Used 5% Lidocaine Gel Right Calf (cm) 52 Right Ankle (cm) 26.4 Left Calf (cm) 47.5 Left Ankle (cm) 27.2 WC - Nurse 2 - General Ulcer CM Notes Start: 02/26/23 10:14 Freq: Status: Active Protocol: Activity Type Activity Date Activity User E-sign Co-sign Detail Recorded Client Recorded Date Recorded By Document 02/26/23 10:50 JAYESH [id number] 02/26/23 11:04 JAYESH 02/26/23 10:50 Wound Center Nurse 2 #16 L anterior leg -Time 10:57 -Correct Patient Yes -Correct Side, Site, Position Yes -Correct Procedure Yes -Procedure Performed Yes -Type of Procedure Debridement -Clinical Debridement Epidermis / Dermis -Tissue Removed Epidermis, Dermis -Post Debridement (cm) - Length 8.7 -Post Debridement (cm) - Width 3.7 -Post Debridement (cm) - Depth 0.1 -Total Square (Post) (cm) 32.19 -Area of Debridement (cm) - Length 8.7 -Area of Debridement (cm) - Width 3.7 -Total Square (Area) (cm) 32.19 -Undermining/Tunneling No -Circular Undermining No -Wound/Ulcer Outcome Not Healed -Ulcer Cleansing Rinsed/ Irrigated with Saline -Foul Odor after Cleansing No -Bioengineered Tissue No -Bleeding Controlled with Pressure -Treatment Response Procedure Tolerated Well -Offloading No -Debridement - Open, 1st 20sq cm Yes -Debridement, Open, ea addt'l 20sq cm 3 or part thereof 15-left chest -Time 10:55 -Correct Patient Yes -Correct Side, Site, Position Yes -Correct Procedure Yes -Procedure Performed Yes -Type of Procedure Debridement -Clinical Debridement Subcutaneous -Tissue Removed Subcutaneous -Post Debridement (cm) - Length 2.4 -Post Debridement (cm) - Width 1.8 -Post Debridement (cm) - Depth 0.1 -Total Square (Post) (cm) 4.32 -Area of Debridement (cm) - Length 2.4 -Area of Debridement (cm) - Width 1.8 -Total Square (Area) (cm) 4.32 -Tunneling No -Undermining/Tunneling No -Circular Undermining No -Wound/Ulcer Outcome Not Healed -Ulcer Cleansing Rinsed/ Irrigated with Saline -Foul Odor after Cleansing No -Bioengineered Tissue No -Bleeding Controlled with Pressure -Treatment Response Procedure Tolerated Well -Offloading No -Debridement - Subq, 1st 20sq cm Yes -Debridement, SubQ, ea addt'l 20sq cm 1 or part thereof 14.RLE cluster -Time 10:55 -Correct Patient Yes -Correct Side, Site, Position Yes -Correct Procedure Yes -Procedure Performed Yes -Type of Procedure Debridement -Clinical Debridement Subcutaneous -Tissue Removed Subcutaneous -Post Debridement (cm) - Length 4.7 -Post Debridement (cm) - Width 1.0 -Post Debridement (cm) - Depth 0.1 -Total Square (Post) (cm) 4.70 -Area of Debridement (cm) - Length 4.7 -Area of Debridement (cm) - Width 1.0 -Total Square (Area) (cm) 4.70 -Tunneling No -Undermining/Tunneling No -Circular Undermining No -Wound/Ulcer Outcome Not Healed -Ulcer Cleansing Rinsed/ Irrigated with Saline -Foul Odor after Cleansing No -Bioengineered Tissue No -Bleeding Controlled with Pressure -Treatment Response Procedure Tolerated Well -Offloading No -Debridement - Subq, 1st 20sq cm No 13. LLE lateral -Time 10:59 -Correct Patient Yes -Correct Side, Site, Position Yes -Correct Procedure Yes -Procedure Performed Yes -Type of Procedure Debridement -Clinical Debridement Epidermis / Dermis -Tissue Removed Epidermis, Dermis -Post Debridement (cm) - Length 5.5 -Post Debridement (cm) - Width 6.0 -Post Debridement (cm) - Depth 0.1 -Total Square (Post) (cm) 33.00 -Area of Debridement (cm) - Length 5.5 -Area of Debridement (cm) - Width 6.0 -Total Square (Area) (cm) 33.00 -Tunneling No -Undermining/Tunneling No -Circular Undermining No -Wound/Ulcer Outcome Not Healed -Ulcer Cleansing Rinsed/ Irrigated with Saline -Foul Odor after Cleansing No -Bioengineered Tissue No -Bleeding Controlled with Pressure -Treatment Response Procedure Tolerated Well -Offloading No -Debridement - Open, 1st 20sq cm No -Debridement - Subq, 1st 20sq cm No 10-RIGHT ANTERIOR SHOULDER -Time 11:00 -Correct Patient Yes -Correct Side, Site, Position Yes -Correct Procedure Yes -Procedure Performed Yes -Type of Procedure Debridement -Clinical Debridement Subcutaneous -Tissue Removed Subcutaneous -Post Debridement (cm) - Length 4.7 -Post Debridement (cm) - Width 3.0 -Post Debridement (cm) - Depth 0.1 -Total Square (Post) (cm) 14.10 -Area of Debridement (cm) - Length 4.7 -Area of Debridement (cm) - Width 3.0 -Total Square (Area) (cm) 14.10 -Tunneling No -Undermining/Tunneling No -Circular Undermining No -Wound/Ulcer Outcome Not Healed -Ulcer Cleansing Rinsed/ Irrigated with Saline -Foul Odor after Cleansing No -Bioengineered Tissue No -Bleeding Controlled with Pressure -Treatment Response Procedure Tolerated Well -Offloading No -Debridement - Subq, 1st 20sq cm No #5 mid chest -Time 11:00 -Correct Patient Yes -Correct Side, Site, Position Yes -Correct Procedure Yes -Procedure Performed Yes -Type of Procedure Debridement -Clinical Debridement Subcutaneous -Tissue Removed Subcutaneous -Post Debridement (cm) - Length 3.5 -Post Debridement (cm) - Width 2.3 -Post Debridement (cm) - Depth 0.1 -Total Square (Post) (cm) 8.05 -Area of Debridement (cm) - Length 3.5 -Area of Debridement (cm) - Width 2.3 -Total Square (Area) (cm) 8.05 -Tunneling No -Undermining/Tunneling No -Circular Undermining No -Wound/Ulcer Outcome Not Healed -Ulcer Cleansing Rinsed/ Irrigated with Saline -Foul Odor after Cleansing No -Bioengineered Tissue No -Bleeding Controlled with Pressure -Treatment Response Procedure Tolerated Well -Offloading No -Debridement - Subq, 1st 20sq cm No -Debridement - Muscle / Fascia, 1st Yes 20sq cm Pain Scale: 0-10 Numeric Is Patient Pain Free? Yes WC - Nurse 3 - General Ulcer D/C NN Start: 02/26/23 10:14 Freq: Status: Active Protocol: Activity Type Activity Date Activity User E-sign Co-sign Detail Recorded Client Recorded Date Recorded By Document 02/26/23 11:32 DL [id number] 02/26/23 11:35 DL 02/26/23 11:32 Wound Care Center Nurse 3 #16 L Anterior leg -Primary Dressing Applied NonAdherent Contact Layer -Primary Dressing Covered/Secured with Dry Gauze & Roll Gauze, Secured with Tape 15-left chest -Ulcer Cleansing Soap and Water -Foul Odor after Cleansing No -Primary Dressing Applied NonAdherent Contact Layer -Primary Dressing Covered/Secured with Dry Gauze, Secured with Tape 14.RLE cluster -Primary Dressing Applied NonAdherent Contact Layer -Primary Dressing Covered/Secured with Dry Gauze & Roll Gauze, Secured with Tape 13. LLE lateral -Ulcer Cleansing Soap and Water -Foul Odor after Cleansing No -Primary Dressing Applied NonAdherent Contact Layer -Primary Dressing Covered/Secured with Dry Gauze & Roll Gauze, Secured with Tape 10-RIGHT ANTERIOR SHOULDER -Ulcer Cleansing Soap and Water -Foul Odor after Cleansing No -Primary Dressing Applied NonAdherent Contact Layer -Primary Dressing Covered/Secured with Dry Gauze, Secured with Tape #5 mid chest -Ulcer Cleansing Soap and Water -Foul Odor after Cleansing No -Primary Dressing Applied NonAdherent Contact Layer -Primary Dressing Covered/Secured with Dry Gauze, Secured with Tape Left -Tubular Bandage Double Layer -Size of Tubigrip Used Size F -Size F ($) 2 Right -Tubular Bandage Double Layer -Size of Tubigrip Used Size F -Size F ($) 2 Treatment Response Procedure Tolerated Well Pain Scale: 0-10 Numeric Is Patient Pain Free? Yes - Visit Discharge Discharge Condition Stable Ambulatory Status Ambulatory,Cane Additional Wound Wound debrided: #13 lateral leg, #16 Anterior leg ulcers Laterality: Left Wound Grade/Stage: Stage II Type of Debridement: Selective debridement Anesthesia Used: 4% Lidocaine Solution and 5% Lidocaine Gel Depth: Down to and including healthy tissue and in the subcutaneous layer Percentage of wound debrided: 100 Instrument Used: - (moistened gauze) Tissue Removed: Devitalized tissue and slough Severity: Limited To Skin Breakdown Amount of bleeding with debridement: Mild Bleeding Controlled with: Pressure and Compression and gauze Patient tolerated procedure: Patient tolerated procedure well Additional Wound Wound debrided: #14 right lower leg cluster Laterality: Right Wound Grade/Stage: Stage II Type of Debridement: Selective debridement Anesthesia Used: 4% Lidocaine Solution Depth: Down to and including healthy tissue and in the subcutaneous layer Percentage of wound debrided: 100 Instrument Used: - (moistened gauze) Tissue Removed: Deviatalized tissue and slough Severity: Limited To Skin Breakdown Amount of bleeding with debridement: Mild Bleeding Controlled with: Pressure and Compression and gauze Patient tolerated procedure: Patient tolerated procedure well Assessment/Plan Assessment/Plan (1) Ulcer of chest wall, limited to breakdown of skin: CODE(S): L98.491 - Non-pressure chronic ulcer of skin of other sites limited to breakdown of skin (2) Ulcer of left lower extremity, limited to breakdown of skin: CODE(S): L97.921 - Non-pressure chronic ulcer of unspecified part of left lower leg limited to breakdown of skin (3) Ulcer of right lower extremity, limited to breakdown of skin: CODE(S): L97.911 - Non-pressure chronic ulcer of unspecified part of right lower leg limited to breakdown of skin (4) Age-related physical debility: CODE(S): R54 - Age-related physical debility (5) Edema of both legs: CODE(S): R60.0 - Localized edema PLAN: Plan Patient evaluated at the wound healing center today. Wound care to the right anterior shoulder, medial chest and left chest place adaptic and cover with gauze daily. Wash the ulcers with soap and water daily at the time of the dressing changes. To the right leg and left lateral leg ulcers place adaptic to all of the ulcers. Compression - Double tubigrip for compression until after his 3M 2 layer wraps where he will come in for a nurse's visit to have 3M 2 layer wraps applied. A wound culture was obtained on 11/14/22 of the upper chest/anterior shoulder ulcers which was positive for Staphylococcus aureus, Kocuria kristinae and Gram positive faraz. He has completed the Doxycycline. He has [employer] to help with the wound care. Stressed importance of not picking at these ulcers. Keep legs elevated when sitting. Encouraged to sleep in a bed, but he has slept in a recliner for 30 years. He was evaluated by Dermatology recently. His biopsy results showed Bullous pemphigoid. Dermatology placed him on steroids oral and cream and started him on Dupixent. He has another Dermatology appointment in 2 days. Follow up after derm appointment for a nurse's visit to have 3M 2 layer wraps change. Follow up one week for nurse's visit to change the 3M 2 layer wraps. Follow up 2 weeks to see me.
[2023-03-01 13:45] VITALS: BP 133/79; PULSE 79; RESP 18; TEMP 35.8; BMI 40.6
[2023-03-12 10:12] VITALS: BP 128/74; PULSE 73; RESP 22; TEMP 35.8; BMI 40.6
--- NOTE | 2023-03-12 12:03 | PCM.WC.PN ---
History of Present Illness Date of Service: 03/12/23 Chief Complaint: Superficial ulcers to bilateral lower legs History of Wound: Patient is a 78 year old male who has multiple skin lesions scattered over his chest, arms, hands and abdomen and legs. The initial skin lesions started from a bed bugs which were causing him to scratch. He was hospitalized at the end of August for sepsis and cellulitis. He was discharged to [facility]. He has since been discharged home and has home health from [facility]. He does admit to picking at the scabbing. He has not been consistently putting anything on these areas. He is on Warfarin for history of PE, also has a history of HTN, CKD II, anemia, RAAD, bilateral leg edema and debility. He was evaluated by Dermatology. His biopsy results showed Bullous pemphigoid. Dermatology placed him on steroids oral and cream and started him on Dupixent. He denies fever, chills, nausea, vomiting. Progress of Wound: Right anterior shoulder ulcer, upper mid chest and left chest ulcers are slightly smaller. They all have dry scabbing surrounding the ulcers. He has ulcers on his legs that started as skin tears. Right leg cluster ulcers and left lateral and anterior leg ulcers are slightly smaller, beefy pink, superficial. Objective Data Objective Data Vital Signs: Vital Signs Temp Pulse Resp BP 96.4 F L 73 22 H 128/74 H 03/12/23 10:12 03/12/23 10:12 03/12/23 10:12 03/12/23 10:12 Weight: 300 lb Body Mass Index (BMI) 40.6 Charges/Coding Procedures Integumentary 111xxx-113xx: [id number] Roxie subq tissue 20 sq cm/< Add On Codes: 29852 Roxie subq tissue add-on (x2) Debridement Note Debridement Note Wound debrided: (#5) mid chest, (#10) Right anterior shoulder, (#15) left chest Wound Grade/Stage: Stage II Type of Debridement: Excisional debridement Anesthesia Used: 4% Lidocaine Solution Depth: Down to and including healthy tissue and in the subcutaneous layer Percentage of wound debrided: 100 Instrument Used: 5mm curette Tissue Removed: Devitalized tissue and slough Severity: Limited To Skin Breakdown Amount of bleeding with debridement: Mild Bleeding Controlled with: Pressure and Compression and gauze Patient tolerated procedure: Patient tolerated procedure well Post-Debridement Measurements and Additional Note: Post-Debridement Measurements/Treatment WC - Nurse 1 - General Ulcer Assessment Start: 02/26/23 10:14 Freq: Status: Active Protocol: DORY Activity Type Activity Date Activity User E-sign Co-sign Detail Recorded Client Recorded Date Recorded By Document 02/26/23 10:14 DL [id number] 02/26/23 10:38 DL Document 03/01/23 13:45 RB [id number] 03/01/23 13:49 RB Document 03/12/23 10:12 DL [id number] 03/12/23 10:22 DL 02/26/23 03/01/23 03/12/23 10:14 13:45 10:12 WC - Today's Visit Information Type of service Follow-up Visit Nurse-only Follow-up Visit (Physician/PROFILING MACHINE SET UP OPERATOR Visit (Physician/PROFILING MACHINE SET UP OPERATOR ) ) Arrival Mode Ambulatory Ambulatory,Cane Ambulatory Transfer Assistance None None None Patient Identification Verified (Name & Yes Yes Yes ) Patient Requires Transmission-Based No No No Precautions Height and Weight Body Mass Index (BMI) 40.6 40.6 40.6 BMI Classification Obese Obese Obese Vital Signs Temperature (97.8 F-99.1 F) 97.5 F L 96.4 F L 96.4 F L Temperature Source Temporal Temporal Temporal Pulse Rate (60-100) 72 79 73 Pulse Location Monitor Monitor Monitor Respiratory Rate (12-18) 18 18 22 H Respiratory rate source Observation Observation Observation Blood Pressure (90/60-120/80) 137/78 H 133/79 H 128/74 H Blood Pressure Mean (mm Hg) 97 97 92 Source Monitor Monitor Monitor Position Sitting Blood Pressure Location Left Arm History Since Last Visit- (Skip if this is Patient's initial visit) Have you changed medications since your No No No last visit? Any new allergies or adverse reactions No No No Had a fall/change in ADL's that may No No No increase risk of falls Signs or symptoms of abuse and/or No No No neglect since last visit Have you been in the hospital since your No No No last visit? Has dressing in place as prescribed Yes Yes No Has compression in place as prescribed Yes Yes No Has offloadiing in place as prescribed N/A No N/A Experienced any changes in pain level or No No No management Pain Scale: 0-10 Numeric Is Patient Pain Free? Yes Yes Yes WC - Nurse 1 - General Ulcer Measurement Start: 02/26/23 10:14 Freq: Status: Active Protocol: Activity Type Activity Date Activity User E-sign Co-sign Detail Recorded Client Recorded Date Recorded By Document 02/26/23 10:14 DL [id number] 02/26/23 10:38 DL Document 03/01/23 13:45 RB [id number] 03/01/23 13:49 RB Document 03/12/23 10:12 DL [id number] 03/12/23 10:22 DL 02/26/23 03/01/23 03/12/23 10:14 13:45 10:12 Wound Center Nurse 1 #16 L [place] -Current Size (cm) - Length 8.5 1.8 -Current Size (cm) - Width 4 2 -Current Size (cm) - Depth 0.1 0.1 -Total Square Cm 34.0 3.6 -Photo Taken Yes No -Exudate Amt Medium Small -Exudate Type Serosanguineous -Wound Margin Distinct, Distinct, Outline Outline Attached Attached -Granulation Amt Large (67-100%) Large (67-100%) -Granulation Quality Red Red -Necrosis Amt Small (1-33%) None Present (0 %) -Necrotic Tissue Type Adherent Slough -Structure Exposed N/A N/A -Texture (Uyen-wound Skin Appearance) Scarring Scarring -Moisture (Uyen-wound Skin Appearance) No Abnormality Dry/Scaly -Color (Uyen-wound Skin Appearance) Hemosiderin Hemosiderin Staining Staining -Temperature (Uyen-wound Skin No Abnormality No Abnormality Appearance) (Pt Warm) (Pt Warm) -Tenderness on Palpation (Uyen-wound No Skin Appearance) -Ulcer Cleansing Soap and Water Soap and Water -Foul Odor after Cleansing No No -Anesthetic Used 4% Lidocaine 5% Lidocaine Solution Gel 15-left chest -Current Size (cm) - Length 2.2 3.8 -Current Size (cm) - Width 1.6 1.8 -Current Size (cm) - Depth 0.1 0.1 -Total Square Cm 3.52 6.84 -Photo Taken No No -Exudate Amt None Present Small -Exudate Type Serosanguineous -Wound Margin Thickened Distinct, Outline Attached -Granulation Amt None Present (0 Large (67-100%) %) -Granulation Quality Hyper- granulation, [place] -Necrosis Amt Large (67-100%) Small (1-33%) -Necrotic Tissue Type Adherent Slough Adherent Slough -Structure Exposed N/A -Texture (Uyen-wound Skin Appearance) Scarring Scarring -Moisture (Uyen-wound Skin Appearance) No Abnormality No Abnormality -Color (Uyen-wound Skin Appearance) No Abnormality No Abnormality -Temperature (Uyen-wound Skin No Abnormality No Abnormality Appearance) (Pt Warm) (Pt Warm) -Tenderness on Palpation (Uyen-wound No No Skin Appearance) -Ulcer Cleansing Soap and Water Soap and Water -Foul Odor after Cleansing No No -Anesthetic Used 4% Lidocaine 5% Lidocaine Solution Gel 14.RLE cluster -Current Size (cm) - Length 5.2 0.1 -Current Size (cm) - Width 13.5 0.1 -Current Size (cm) - Depth 0.1 0.1 -Total Square Cm 70.20 0.01 -Photo Taken No No -Exudate Amt Small Small -Exudate Type Serosanguineous Serosanguineous -Wound Margin Indistinct, Non Indistinct, Non -Visible -Visible -Granulation Amt Large (67-100%) Small (1-33%) -Granulation Quality Red Red -Necrosis Amt Small (1-33%) None Present (0 %) -Necrotic Tissue Type Adherent Slough -Structure Exposed N/A N/A -Texture (Uyen-wound Skin Appearance) Scarring Scarring -Moisture (Uyen-wound Skin Appearance) No Abnormality Dry/Scaly -Color (Uyen-wound Skin Appearance) Hemosiderin Hemosiderin Staining Staining -Temperature (Uyen-wound Skin No Abnormality No Abnormality Appearance) (Pt Warm) (Pt Warm) -Tenderness on Palpation (Uyen-wound No No Skin Appearance) -Ulcer Cleansing Soap and Water Soap and Water -Foul Odor after Cleansing No No -Anesthetic Used 4% Lidocaine 5% Lidocaine Solution Gel 13. LLE lateral -Current Size (cm) - Length 5.5 2.4 -Current Size (cm) - Width 6 1.2 -Current Size (cm) - Depth 0.1 0.1 -Total Square Cm 33.0 2.88 -Photo Taken No No -Exudate Amt Medium None Present -Exudate Type Serosanguineous -Wound Margin Distinct, Indistinct, Non Outline -Visible Attached -Granulation Amt Large (67-100%) Large (67-100%) -Granulation Quality Red [place] -Necrosis Amt Small (1-33%) None Present (0 %) -Necrotic Tissue Type Adherent Slough -Structure Exposed N/A -Texture (Uyen-wound Skin Appearance) Scarring Scarring -Moisture (Uyen-wound Skin Appearance) No Abnormality Dry/Scaly -Color (Uyen-wound Skin Appearance) Hemosiderin Hemosiderin Staining Staining -Temperature (Uyen-wound Skin No Abnormality No Abnormality Appearance) (Pt Warm) (Pt Warm) -Tenderness on Palpation (Uyen-wound No No Skin Appearance) -Ulcer Cleansing Soap and Water Soap and Water -Foul Odor after Cleansing No No -Anesthetic Used 4% Lidocaine 5% Lidocaine Solution Gel 10-RIGHT ANTERIOR SHOULDER -Current Size (cm) - Length 3.8 4 -Current Size (cm) - Width 2.8 2.6 -Current Size (cm) - Depth 0.1 0.1 -Total Square Cm 10.64 10.4 -Photo Taken No No -Exudate Amt Medium Small -Exudate Type Serosanguineous Serosanguineous -Wound Margin Thickened Distinct, Outline Attached -Granulation Amt Medium (34-66%) Large (67-100%) -Granulation Quality Hyper- Hyper- granulation,Red granulation, [place] -Necrosis Amt Medium (34-66%) Small (1-33%) -Necrotic Tissue Type Adherent Slough Adherent Slough -Structure Exposed N/A N/A -Texture (Uyen-wound Skin Appearance) Scarring Scarring -Moisture (Uyen-wound Skin Appearance) No Abnormality No Abnormality -Color (Uyen-wound Skin Appearance) No Abnormality No Abnormality -Temperature (Uyen-wound Skin No Abnormality No Abnormality Appearance) (Pt Warm) (Pt Warm) -Tenderness on Palpation (Uyen-wound No No Skin Appearance) -Ulcer Cleansing Soap and Water Soap and Water -Foul Odor after Cleansing No No -Anesthetic Used 5% Lidocaine 5% Lidocaine Gel Gel #5 mid chest -Current Size (cm) - Length 3 3 -Current Size (cm) - Width 2.2 1.7 -Current Size (cm) - Depth 0.1 0.1 -Total Square Cm 6.6 5.1 -Photo Taken No No -Exudate Amt Medium Small -Exudate Type Serosanguineous Serosanguineous -Wound Margin Thickened Distinct, Outline Attached -Granulation Amt Medium (34-66%) Large (67-100%) -Granulation Quality Hyper- Hyper- granulation,Red granulation, [place] -Necrosis Amt Medium (34-66%) Small (1-33%) -Necrotic Tissue Type Adherent Slough Adherent Slough -Structure Exposed N/A N/A -Texture (Uyen-wound Skin Appearance) Scarring Scarring -Moisture (Uyen-wound Skin Appearance) Dry/Scaly No Abnormality -Color (Uyen-wound Skin Appearance) No Abnormality No Abnormality -Temperature (Uyen-wound Skin No Abnormality No Abnormality Appearance) (Pt Warm) (Pt Warm) -Tenderness on Palpation (Uyen-wound No No Skin Appearance) -Ulcer Cleansing Soap and Water Soap and Water -Foul Odor after Cleansing No No -Anesthetic Used 5% Lidocaine 5% Lidocaine Gel Gel Lower Limb Edema Present Yes Right Calf (cm) 52 55 Right Ankle (cm) 26.4 27.5 Left Calf (cm) 47.5 54 Left Ankle (cm) 27.2 28.5 WC - Nurse 2 - General Ulcer CM Notes Start: 02/26/23 10:14 Freq: Status: Active Protocol: Activity Type Activity Date Activity User E-sign Co-sign Detail Recorded Client Recorded Date Recorded By Document 02/26/23 10:50 [id number] 02/26/23 11:04 Document 03/12/23 10:46 [id number] 03/12/23 10:59 02/26/23 03/12/23 10:50 10:46 Wound Center Nurse 2 #16 L [place] -Time 10:57 10:52 -Correct Patient Yes Yes -Correct Side, Site, Position Yes Yes -Correct Procedure Yes Yes -Procedure Performed Yes Yes -Type of Procedure Debridement Debridement -Clinical Debridement Epidermis / Subcutaneous Dermis -Tissue Removed Epidermis, Subcutaneous Dermis -Post Debridement (cm) - Length 8.7 3.3 -Post Debridement (cm) - Width 3.7 2.0 -Post Debridement (cm) - Depth 0.1 0.1 -Total Square (Post) (cm) 32.19 6.60 -Area of Debridement (cm) - Length 8.7 3.3 -Area of Debridement (cm) - Width 3.7 2.0 -Total Square (Area) (cm) 32.19 6.60 -Tunneling No -Undermining/Tunneling No No -Circular Undermining No No -Wound/Ulcer Outcome Not Healed Not Healed -Ulcer Cleansing Rinsed/ Rinsed/ Irrigated with Irrigated with Saline Saline -Foul Odor after Cleansing No No -Bioengineered Tissue No No -Bleeding Controlled with Pressure Pressure -Treatment Response Procedure Procedure Tolerated Well Tolerated Well -Offloading No No -Debridement - Open, 1st 20sq cm Yes -Debridement, Open, ea addt'l 20sq cm 3 or part thereof -Debridement - Subq, 1st 20sq cm No 15-left chest -Time 10:55 10:51 -Correct Patient Yes Yes -Correct Side, Site, Position Yes Yes -Correct Procedure Yes Yes -Procedure Performed Yes Yes -Type of Procedure Debridement Debridement -Clinical Debridement Subcutaneous Subcutaneous -Tissue Removed Subcutaneous Subcutaneous -Post Debridement (cm) - Length 2.4 3.3 -Post Debridement (cm) - Width 1.8 2.0 -Post Debridement (cm) - Depth 0.1 0.1 -Total Square (Post) (cm) 4.32 6.60 -Area of Debridement (cm) - Length 2.4 3.3 -Area of Debridement (cm) - Width 1.8 2.0 -Total Square (Area) (cm) 4.32 6.60 -Tunneling No No -Undermining/Tunneling No No -Circular Undermining No No -Wound/Ulcer Outcome Not Healed Not Healed -Ulcer Cleansing Rinsed/ Rinsed/ Irrigated with Irrigated with Saline Saline -Foul Odor after Cleansing No No -Bioengineered Tissue No No -Bleeding Controlled with Pressure Pressure -Treatment Response Procedure Procedure Not Tolerated Well Tolerated Well -Offloading No No -Debridement - Subq, 1st 20sq cm Yes No -Debridement, SubQ, ea addt'l 20sq cm 1 or part thereof 14.RLE cluster -Time 10:55 10:53 -Correct Patient Yes Yes -Correct Side, Site, Position Yes Yes -Correct Procedure Yes Yes -Procedure Performed Yes Yes -Type of Procedure Debridement Debridement -Clinical Debridement Subcutaneous Subcutaneous -Tissue Removed Subcutaneous Subcutaneous -Post Debridement (cm) - Length 4.7 3.0 -Post Debridement (cm) - Width 1.0 7.5 -Post Debridement (cm) - Depth 0.1 0.1 -Total Square (Post) (cm) 4.70 22.50 -Area of Debridement (cm) - Length 4.7 3.0 -Area of Debridement (cm) - Width 1.0 7.5 -Total Square (Area) (cm) 4.70 22.50 -Tunneling No No -Undermining/Tunneling No No -Circular Undermining No No -Wound/Ulcer Outcome Not Healed Not Healed -Ulcer Cleansing Rinsed/ Rinsed/ Irrigated with Irrigated with Saline Saline -Foul Odor after Cleansing No No -Bioengineered Tissue No No -Bleeding Controlled with Pressure Pressure -Treatment Response Procedure Procedure Tolerated Well Tolerated Well -Offloading No No -Debridement - Subq, 1st 20sq cm No No 13. LLE lateral -Time 10:59 10:56 -Correct Patient Yes Yes -Correct Side, Site, Position Yes Yes -Correct Procedure Yes Yes -Procedure Performed Yes Yes -Type of Procedure Debridement Debridement -Clinical Debridement Epidermis / Subcutaneous Dermis -Tissue Removed Epidermis, Subcutaneous Dermis -Post Debridement (cm) - Length 5.5 2.7 -Post Debridement (cm) - Width 6.0 1.3 -Post Debridement (cm) - Depth 0.1 0.1 -Total Square (Post) (cm) 33.00 3.51 -Area of Debridement (cm) - Length 5.5 2.7 -Area of Debridement (cm) - Width 6.0 1.3 -Total Square (Area) (cm) 33.00 3.51 -Tunneling No No -Undermining/Tunneling No No -Circular Undermining No No -Wound/Ulcer Outcome Not Healed Not Healed -Ulcer Cleansing Rinsed/ Rinsed/ Irrigated with Irrigated with Saline Saline -Foul Odor after Cleansing No No -Bioengineered Tissue No No -Bleeding Controlled with Pressure Pressure -Treatment Response Procedure Procedure Tolerated Well Tolerated Well -Offloading No No -Debridement - Open, 1st 20sq cm No -Debridement - Subq, 1st 20sq cm No No 10-RIGHT ANTERIOR SHOULDER -Time 11:00 10:51 -Correct Patient Yes Yes -Correct Side, Site, Position Yes Yes -Correct Procedure Yes Yes -Procedure Performed Yes Yes -Type of Procedure Debridement Debridement -Clinical Debridement Subcutaneous Subcutaneous -Tissue Removed Subcutaneous Subcutaneous -Post Debridement (cm) - Length 4.7 4.0 -Post Debridement (cm) - Width 3.0 2.5 -Post Debridement (cm) - Depth 0.1 0.1 -Total Square (Post) (cm) 14.10 10.00 -Area of Debridement (cm) - Length 4.7 4.0 -Area of Debridement (cm) - Width 3.0 2.5 -Total Square (Area) (cm) 14.10 10.00 -Tunneling No No -Undermining/Tunneling No No -Circular Undermining No No -Wound/Ulcer Outcome Not Healed Not Healed -Ulcer Cleansing Rinsed/ Rinsed/ Irrigated with Irrigated with Saline Saline -Foul Odor after Cleansing No No -Bioengineered Tissue No No -Bleeding Controlled with Pressure Pressure -Treatment Response Procedure Procedure Tolerated Well Tolerated Well -Offloading No No -Debridement - Subq, 1st 20sq cm No No #5 mid chest -Time 11:00 10:54 -Correct Patient Yes Yes -Correct Side, Site, Position Yes Yes -Correct Procedure Yes Yes -Procedure Performed Yes Yes -Type of Procedure Debridement Debridement -Clinical Debridement Subcutaneous Subcutaneous -Tissue Removed Subcutaneous Subcutaneous -Post Debridement (cm) - Length 3.5 3.3 -Post Debridement (cm) - Width 2.3 1.7 -Post Debridement (cm) - Depth 0.1 0.1 -Total Square (Post) (cm) 8.05 5.61 -Area of Debridement (cm) - Length 3.5 3.3 -Area of Debridement (cm) - Width 2.3 1.7 -Total Square (Area) (cm) 8.05 5.61 -Tunneling No No -Undermining/Tunneling No No -Circular Undermining No No -Wound/Ulcer Outcome Not Healed Not Healed -Ulcer Cleansing Rinsed/ Rinsed/ Irrigated with Irrigated with Saline Saline -Foul Odor after Cleansing No No -Bioengineered Tissue No No -Bleeding Controlled with Pressure Pressure -Treatment Response Procedure Procedure Tolerated Well Tolerated Well -Offloading No No -Debridement - Subq, 1st 20sq cm No Yes -Debridement, SubQ, ea addt'l 20sq cm 2 or part thereof -Debridement - Muscle / Fascia, 1st Yes 20sq cm Pain Scale: 0-10 Numeric Is Patient Pain Free? Yes Yes WC - Nurse 3 - General Ulcer D/C NN Start: 02/26/23 10:14 Freq: Status: Active Protocol: Activity Type Activity Date Activity User E-sign Co-sign Detail Recorded Client Recorded Date Recorded By Document 02/26/23 11:32 DL [id number] 02/26/23 11:35 DL Document 03/01/23 13:45 RB [id number] 03/01/23 13:49 RB Document 03/12/23 11:04 DL [id number] 03/12/23 11:08 DL 02/26/23 03/01/23 03/12/23 11:32 13:45 11:04 Wound Care Center Nurse 3 #16 L [place] -Ulcer Cleansing Soap and Water -Foul Odor after Cleansing No -Primary Dressing Applied NonAdherent NonAdherent Contact Layer Contact Layer -Primary Dressing Covered/Secured with Dry Gauze & Dry Gauze & Roll Gauze, Roll Gauze, Secured with Secured with Tape Tape 15-left chest -Ulcer Cleansing Soap and Water Rinsed/ Irrigated with Saline -Foul Odor after Cleansing No No -Primary Dressing Applied NonAdherent NonAdherent Contact Layer Contact Layer -Primary Dressing Covered/Secured with Dry Gauze, Dry Gauze, Secured with Secured with Tape Tape 14.RLE cluster -Ulcer Cleansing Soap and Water -Foul Odor after Cleansing No -Primary Dressing Applied NonAdherent NonAdherent NonAdherent Contact Layer Contact Layer Contact Layer -Primary Dressing Covered/Secured with Dry Gauze & Dry Gauze & Dry Gauze & Roll Gauze, Roll Gauze, Roll Gauze, Secured with Secured with Secured with Tape Tape Tape 13. LLE lateral -Ulcer Cleansing Soap and Water Soap and Water -Foul Odor after Cleansing No No -Primary Dressing Applied NonAdherent NonAdherent NonAdherent Contact Layer Contact Layer Contact Layer -Primary Dressing Covered/Secured with Dry Gauze & Dry Gauze & Dry Gauze & Roll Gauze, Roll Gauze, Roll Gauze, Secured with Secured with Secured with Tape Tape Tape 10-RIGHT ANTERIOR SHOULDER -Ulcer Cleansing Soap and Water Soap and Water -Foul Odor after Cleansing No -Primary Dressing Applied NonAdherent NonAdherent Contact Layer Contact Layer -Primary Dressing Covered/Secured with Dry Gauze, Dry Gauze, Secured with Secured with Tape Tape #5 mid chest -Ulcer Cleansing Soap and Water Soap and Water -Foul Odor after Cleansing No No -Primary Dressing Applied NonAdherent NonAdherent Contact Layer Contact Layer -Primary Dressing Covered/Secured with Dry Gauze, Dry Gauze, Secured with Secured with Tape Tape bilateral LE -Multi-Layered Wrap Application Multi-Layer Multi-Layer Comp - Bilat ($ Comp - Bilat ($ ) ) Left -Tubular Bandage Double Layer -Size of Tubigrip Used Size F -Size F ($) 2 Right -Tubular Bandage Double Layer -Size of Tubigrip Used Size F -Size F ($) 2 Treatment Response Procedure Procedure Procedure Tolerated Well Tolerated Well Tolerated Well Vital Signs Temperature (97.8 F-99.1 F) 96.4 F L Temperature Source Temporal Pulse Rate (60-100) 79 Pulse Location Monitor Respiratory Rate (12-18) 18 Respiratory rate source Observation Blood Pressure (90/60-120/80) 133/79 H Blood Pressure Mean (mm Hg) 97 Source Monitor Position Sitting Blood Pressure Location Left Arm Pain Scale: 0-10 Numeric Is Patient Pain Free? Yes Yes Yes WC - Visit Discharge Discharge Condition Stable Stable Stable Ambulatory Status Ambulatory,Cane Ambulatory,Cane Ambulatory Transportation Private Auto Private Auto Medication Reconcilliation completed & No provided to patient/care provider Clinical Summary of Care Provided Yes Additional Wound Wound debrided: #13 lateral leg, #16 Anterior leg ulcers Laterality: Left Wound Grade/Stage: Stage II Type of Debridement: Selective debridement Anesthesia Used: 4% Lidocaine Solution and 5% Lidocaine Gel Depth: Down to and including healthy tissue and in the subcutaneous layer Percentage of wound debrided: 100 Instrument Used: 5mm curette and - (moistened gauze) Tissue Removed: Devitalized tissue and slough Severity: Limited To Skin Breakdown Amount of bleeding with debridement: Mild Bleeding Controlled with: Pressure and Compression and gauze Patient tolerated procedure: Patient tolerated procedure well Additional Wound Wound debrided: #14 right lower leg cluster Laterality: Right Wound Grade/Stage: Stage II Type of Debridement: Selective debridement Anesthesia Used: 4% Lidocaine Solution Depth: Down to and including healthy tissue and in the subcutaneous layer Percentage of wound debrided: 100 Instrument Used: - (moistened gauze) Tissue Removed: Deviatalized tissue and slough Severity: Limited To Skin Breakdown Amount of bleeding with debridement: Mild Bleeding Controlled with: Pressure and Compression and gauze Patient tolerated procedure: Patient tolerated procedure well Assessment/Plan Assessment/Plan (1) Ulcer of chest wall, limited to breakdown of skin: CODE(S): L98.491 - Non-pressure chronic ulcer of skin of other sites limited to breakdown of skin (2) Ulcer of left lower extremity, limited to breakdown of skin: CODE(S): L97.921 - Non-pressure chronic ulcer of unspecified part of left lower leg limited to breakdown of skin (3) Ulcer of right lower extremity, limited to breakdown of skin: CODE(S): L97.911 - Non-pressure chronic ulcer of unspecified part of right lower leg limited to breakdown of skin (4) Age-related physical debility: CODE(S): R54 - Age-related physical debility (5) Edema of both legs: CODE(S): R60.0 - Localized edema PLAN: Plan Patient evaluated at the wound healing center today. Wound care to all the ulcers is adaptic covered with gauze daily after washing the ulcers with soap and water. Compression - 3M 2 layer wraps weekly. A wound culture was obtained on 11/14/22 of the upper chest/anterior shoulder ulcers which was positive for Staphylococcus aureus, Kocuria kristinae and Gram positive faraz. He has completed the Doxycycline. He has [facility] [employer] to help with the wound care. Stressed importance of not picking at these ulcers. Keep legs elevated when sitting. Encouraged to sleep in a bed, but he has slept in a recliner for 30 years. He was evaluated by Dermatology recently. His biopsy results showed Bullous pemphigoid. Dermatology placed him on steroids oral and cream and started him on Dupixent. Follow up for nurse's visit weekly to change the 3M 2 layer wraps. Follow up 3 weeks to see me.
[2023-03-21 13:16] VITALS: BP 141/76; PULSE 74; RESP 16; TEMP 36; BMI 40.6
[2023-03-28 13:10] VITALS: BP 114/72; PULSE 83; RESP 22; TEMP 36.7; BMI 40.6
== END 2023-03-28 23:59 | disposition home or self-care (01) ==
LOC: WC 13:00
PROVIDERS: PCP Nurse Practitioner Family; Referring Provider Nurse Practitioner Family; Visit Provider Nurse Practitioner Family
DX: L98.491 Non-pressure chronic ulcer of skin of other sites limited to breakdown of skin (principal); L97.911 Non-pressure chronic ulcer of unspecified part of right lower leg limited to breakdown of skin; L97.921 Non-pressure chronic ulcer of unspecified part of left lower leg limited to breakdown of skin; R60.0 Localized edema; I12.9 Hypertensive chronic kidney disease with stage 1 through stage 4 chronic kidney disease, or unspecified chronic kidney disease; N18.2 Chronic kidney disease, stage 2 (mild); R54 Age-related physical debility
CPT/HCPCS: 11042; 11043; 11045; 29581; 97597; 97598

== ENCOUNTER 2023-04-16 09:45 | Outpatient (RCR) | payer MEDICARE, MEDICAID, SELFPAY ==
[2023-03-29 00:20] VITALS: BP 114/72; PULSE 83; RESP 22; TEMP 36.7; BMI 40.6
[2023-04-02 10:15] VITALS: BP 117/63; PULSE 76; TEMP 36.2; BMI 40.6
--- NOTE | 2023-04-02 13:11 | PCM.WC.PN ---
History of Present Illness Date of Service: 04/02/23 Chief Complaint: Superficial ulcers to bilateral lower legs History of Wound: Patient is a 78 year old male who has multiple skin lesions scattered over his chest, arms, hands and abdomen and legs. The initial skin lesions started from a bed bugs which were causing him to scratch. He was hospitalized at the end of August for sepsis and cellulitis. He was discharged to [facility]. He has since been discharged home and has home health from [facility]. He does admit to picking at the scabbing. He has not been consistently putting anything on these areas. He is on Warfarin for history of PE, also has a history of HTN, CKD II, anemia, RAAD, bilateral leg edema and debility. He was evaluated by Dermatology. His biopsy results showed Bullous pemphigoid. Dermatology placed him on steroids oral and cream and started him on Dupixent. He denies fever, chills, nausea, vomiting. Progress of Wound: Right anterior shoulder ulcer, upper mid chest and left chest ulcers are improving. The continue to have dry scabbing present. Did not attempt to remove this scabbing today. He is constantly coming in with new ulcers on his legs from him scratching. Left lateral leg ulcer is having increased drainage with an odor. A culture was obtained today of the left lateral leg ulcer. He also has ulcers on his left anterior leg and his right anterior leg that are stable. Improvement in his bilateral lower leg edema/lymphedema with the 3M 2 layer compression wraps. Objective Data Objective Data Vital Signs: Vital Signs Temp Pulse Resp BP 97.1 F L 76 22 H 117/63 04/02/23 10:15 04/02/23 10:15 03/29/23 00:20 04/02/23 10:15 Weight: 300 lb Body Mass Index (BMI) 40.6 Charges/Coding Procedures Integumentary 111xxx-113xx: [id number] Roxie subq tissue 20 sq cm/< Add On Codes: 63880 Roxie subq tissue add-on (x6) Debridement Note Debridement Note Wound debrided: (#5) mid chest, (#10) Right anterior shoulder, (#15) left chest Debridement Free Text: Chest ulcers were not debrided today. Post-Debridement Measurements and Additional Note: Post-Debridement Measurements/Treatment WC - Nurse 1 - General Ulcer Assessment Start: 04/02/23 10:07 Freq: Status: Active Protocol: DAVIDEXRose Activity Type Activity Date Activity User E-sign Co-sign Detail Recorded Client Recorded Date Recorded By Document 04/02/23 10:15 ANURADHA [id number] 04/02/23 10:21 LA 04/02/23 10:15 WC - Today's Visit Information Type of service Follow-up Visit (Physician/MASTER PLANNER ) Arrival Mode Ambulatory Patient Identification Verified (Name & Yes ) Patient Requires Transmission-Based No Precautions Safety Precautions NA Height and Weight Body Mass Index (BMI) 40.6 BMI Classification Obese Vital Signs Temperature (97.8 F-99.1 F) 97.1 F L Temperature Source Temporal Pulse Rate (60-100) 76 Pulse Location Monitor Blood Pressure (90/60-120/80) 117/63 Blood Pressure Mean (mm Hg) 81 Source Monitor History Since Last Visit- (Skip if this is Patient's initial visit) Have you changed medications since your No last visit? Any new allergies or adverse reactions No Had a fall/change in ADL's that may No increase risk of falls Signs or symptoms of abuse and/or No neglect since last visit Have you been in the hospital since your No last visit? Has dressing in place as prescribed Yes Has compression in place as prescribed N/A Has offloadiing in place as prescribed N/A Experienced any changes in pain level or No management Left Footwear Regular Shoe Right Footwear Regular Shoe Pain Scale: 0-10 Numeric Is Patient Pain Free? Yes - Nurse 1 - General Ulcer Measurement Start: 04/02/23 10:07 Freq: Status: Active Protocol: Activity Type Activity Date Activity User E-sign Co-sign Detail Recorded Client Recorded Date Recorded By Document 04/02/23 10:15 ANURADHA [id number] 04/02/23 10:21 LA 04/02/23 10:15 Wound Center Nurse 1 #16 L [place] -Combined with other wound No 10-RIGHT ANTERIOR SHOULDER -Combined with other wound No -Current Size (cm) - Length 2 -Current Size (cm) - Width 2 -Current Size (cm) - Depth 0.1 -Total Square Cm 4 -Photo Taken Yes -Undermining/Tunneling No -Circular Undermining No -Change in Wound Grade/Stage No -Exudate Amt Large -Exudate Type Serosanguineous -Wound Margin Distinct, Outline Attached -Granulation Amt Large (67-100%) -Granulation Quality Red -Slough/Fibrin Yes -Necrosis Amt Small (1-33%) -Necrotic Tissue Type Adherent Slough -Structure Exposed N/A -Texture (Uyen-wound Skin Appearance) Assessed, Scarring,Rash -Moisture (Uyen-wound Skin Appearance) No Abnormality, Assessed -Color (Uyen-wound Skin Appearance) Assessed -Temperature (Uyen-wound Skin No Abnormality Appearance) (Pt Warm) -Tenderness on Palpation (Uyen-wound No Skin Appearance) -Ulcer Cleansing Soap and Water -Foul Odor after Cleansing No -Anesthetic Used 4% Lidocaine Solution #5 mid chest -Combined with (Name of Wound-Exactly L chest as it is documented) -Current Size (cm) - Length 4 -Current Size (cm) - Width 9 -Current Size (cm) - Depth 0.1 -Total Square Cm 36 -Photo Taken Yes -Tunneling No -Undermining/Tunneling No -Circular Undermining No -Change in Wound Grade/Stage No -Exudate Amt Medium -Exudate Type Serosanguineous -Wound Margin Distinct, Outline Attached -Granulation Amt Large (67-100%) -Granulation Quality Red -Slough/Fibrin Yes -Necrosis Amt Small (1-33%) -Necrotic Tissue Type Adherent Slough -Structure Exposed N/A -Texture (Uyen-wound Skin Appearance) Assessed, Scarring -Moisture (Yuen-wound Skin Appearance) No Abnormality, Assessed -Color (Uyen-wound Skin Appearance) Assessed, Erythema -Temperature (Uyen-wound Skin No Abnormality Appearance) (Pt Warm) -Tenderness on Palpation (Uyen-wound No Skin Appearance) -Ulcer Cleansing Rinsed/ Irrigated with Saline -Foul Odor after Cleansing No -Anesthetic Used 4% Lidocaine Solution WC - Nurse 2 - General Ulcer CM Notes Start: 04/02/23 10:07 Freq: Status: Active Protocol: Activity Type Activity Date Activity User E-sign Co-sign Detail Recorded Client Recorded Date Recorded By Document 04/02/23 10:42 JAYESH [id number] 04/02/23 10:49 JAYESH 04/02/23 10:42 Wound Center Nurse 2 #16 L [place] -Time 10:42 -Correct Patient Yes -Correct Side, Site, Position Yes -Correct Procedure Yes -Procedure Performed Yes -Type of Procedure Debridement -Clinical Debridement Subcutaneous -Tissue Removed Subcutaneous -Post Debridement (cm) - Length 6.2 -Post Debridement (cm) - Width 3.0 -Post Debridement (cm) - Depth 0.1 -Total Square (Post) (cm) 18.60 -Area of Debridement (cm) - Length 6.2 -Area of Debridement (cm) - Width 3.0 -Total Square (Area) (cm) 18.60 -Tunneling No -Undermining/Tunneling No -Circular Undermining No -Wound/Ulcer Outcome Not Healed -Ulcer Cleansing Rinsed/ Irrigated with Saline -Foul Odor after Cleansing No -Bioengineered Tissue No -Bleeding Controlled with Pressure -Treatment Response Procedure Tolerated Well -Offloading No -Debridement - Subq, 1st 20sq cm No 15-left chest -Correct Patient No -Correct Side, Site, Position No -Correct Procedure No -Procedure Performed No -Wound/Ulcer Outcome Not Healed 14.RLE cluster -Time 10:43 -Correct Patient Yes -Correct Side, Site, Position Yes -Correct Procedure Yes -Procedure Performed Yes -Type of Procedure Debridement -Clinical Debridement Subcutaneous -Tissue Removed Subcutaneous -Post Debridement (cm) - Length 10 -Post Debridement (cm) - Width 4.5 -Post Debridement (cm) - Depth 0.1 -Total Square (Post) (cm) 45.0 -Area of Debridement (cm) - Length 10 -Area of Debridement (cm) - Width 4.5 -Total Square (Area) (cm) 45.0 -Tunneling No -Undermining/Tunneling No -Circular Undermining No -Wound/Ulcer Outcome Not Healed -Ulcer Cleansing Rinsed/ Irrigated with Saline -Foul Odor after Cleansing No -Bioengineered Tissue No -Bleeding Controlled with Pressure -Treatment Response Procedure Tolerated Well -Offloading No -Debridement - Subq, 1st 20sq cm Yes -Debridement, SubQ, ea addt'l 20sq cm 6 or part thereof 13. LLE lateral -Time 10:44 -Correct Patient Yes -Correct Side, Site, Position Yes -Correct Procedure Yes -Procedure Performed Yes -Type of Procedure Debridement -Clinical Debridement Subcutaneous -Tissue Removed Subcutaneous -Post Debridement (cm) - Length 6.5 -Post Debridement (cm) - Width 9.0 -Post Debridement (cm) - Depth 0.1 -Total Square (Post) (cm) 58.50 -Area of Debridement (cm) - Length 6.5 -Area of Debridement (cm) - Width 9.0 -Total Square (Area) (cm) 58.50 -Tunneling No -Undermining/Tunneling No -Circular Undermining No -Wound/Ulcer Outcome Not Healed -Ulcer Cleansing Rinsed/ Irrigated with Saline -Foul Odor after Cleansing No -Bioengineered Tissue No -Bleeding Controlled with Pressure -Treatment Response Procedure Tolerated Well -Offloading No -Debridement - Subq, 1st 20sq cm No 10-RIGHT ANTERIOR SHOULDER -Correct Patient No -Correct Side, Site, Position No -Correct Procedure No -Procedure Performed No -Wound/Ulcer Outcome Not Healed #5 mid chest -Correct Patient No -Correct Side, Site, Position No -Correct Procedure No -Procedure Performed No -Wound/Ulcer Outcome Not Healed Pain Scale: 0-10 Numeric Is Patient Pain Free? Yes WC - Nurse 3 - General Ulcer D/C NN Start: 04/02/23 10:07 Freq: Status: Active Protocol: Activity Type Activity Date Activity User E-sign Co-sign Detail Recorded Client Recorded Date Recorded By Document 04/02/23 11:15 ANURADHA [id number] 04/02/23 11:17 AK 04/02/23 11:15 Wound Care Center Nurse 3 #16 L [place] -Ulcer Cleansing Rinsed/ Irrigated with Saline -Foul Odor after Cleansing No -Negative Pressure Wound Therapy N/A -Primary Dressing Applied Aquacel AG 4x4, NonAdherent Contact Layer -Primary Dressing Covered/Secured with Dry Gauze & Roll Gauze, Secured with Tape -Aquacel AG 4x4 1 14.RLE cluster -Ulcer Cleansing Rinsed/ Irrigated with Saline -Foul Odor after Cleansing No -Negative Pressure Wound Therapy N/A -Primary Dressing Applied NonAdherent Contact Layer -Other Dressing ag -Primary Dressing Covered/Secured with Dry Gauze & Roll Gauze, Secured with Tape 13. LLE lateral -Ulcer Cleansing Rinsed/ Irrigated with Saline -Foul Odor after Cleansing No -Negative Pressure Wound Therapy N/A -Primary Dressing Applied NonAdherent Contact Layer -Other Dressing ag -Primary Dressing Covered/Secured with Dry Gauze & Roll Gauze, Secured with Tape GRACIELA -Tubular Bandage Double Layer -Size of Tubigrip Used Size F -Size F ($) 4 Pain Scale: 0-10 Numeric Is Patient Pain Free? Yes WC - Visit Discharge Discharge Condition Stable Ambulatory Status Ambulatory Transportation Private Auto Accompanied by DAUGHTER Medication Reconcilliation completed & Yes provided to patient/care provider Clinical Summary of Care Provided Yes Additional Wound Wound debrided: #13 lateral leg, #16 Anterior leg ulcers Laterality: Left Wound Grade/Stage: Stage II Type of Debridement: Selective debridement Anesthesia Used: 4% Lidocaine Solution and 5% Lidocaine Gel Depth: Down to and including healthy tissue and in the subcutaneous layer Percentage of wound debrided: 100 Instrument Used: 5mm curette and - Tissue Removed: Devitalized tissue and slough Severity: Limited To Skin Breakdown Amount of bleeding with debridement: Mild Bleeding Controlled with: Pressure and Compression and gauze Patient tolerated procedure: Patient tolerated procedure well Additional Wound Wound debrided: #14 right lower leg cluster Laterality: Right Wound Grade/Stage: Stage II Type of Debridement: Selective debridement Anesthesia Used: 4% Lidocaine Solution Depth: Down to and including healthy tissue and in the subcutaneous layer Percentage of wound debrided: 100 Instrument Used: 5mm curette and - Tissue Removed: Deviatalized tissue and slough Severity: Limited To Skin Breakdown Amount of bleeding with debridement: Mild Bleeding Controlled with: Pressure and Compression and gauze Patient tolerated procedure: Patient tolerated procedure well Assessment/Plan Assessment/Plan (1) Ulcer of chest wall, limited to breakdown of skin: CODE(S): L98.491 - Non-pressure chronic ulcer of skin of other sites limited to breakdown of skin (2) Ulcer of left lower extremity, limited to breakdown of skin: CODE(S): L97.921 - Non-pressure chronic ulcer of unspecified part of left lower leg limited to breakdown of skin (3) Ulcer of right lower extremity, limited to breakdown of skin: CODE(S): L97.911 - Non-pressure chronic ulcer of unspecified part of right lower leg limited to breakdown of skin (4) Age-related physical debility: CODE(S): R54 - Age-related physical debility (5) Edema of both legs: CODE(S): R60.0 - Localized edema PLAN: Plan Patient evaluated at the wound healing center today. Wound care to the left lateral leg ulcer will be Dakins 0.25% covered with ABD to left lateral leg ulcer. The left anterior leg and right leg ulcers place adaptic covered silver then top with gauze daily after washing the ulcers with soap and water. Compression - double tubigrip A wound culture was obtained today, 04/02/23.? A positive culture will necessitate antibiotic therapy. A wound culture was obtained on 11/14/22 of the upper chest/anterior shoulder ulcers which was positive for Staphylococcus aureus, Kocuria kristinae and Gram positive faraz. He has completed the Doxycycline. He has [facility] to help with the wound care. Stressed importance of not picking at these ulcers. Keep legs elevated when sitting. Encouraged to sleep in a bed, but he has slept in a recliner for 30 years. He was evaluated by Dermatology recently. His biopsy results showed Bullous pemphigoid. Dermatology placed him on steroids oral and cream and started him on Dupixent. Follow up 2 weeks to see me, since I will be out of town next week. Call or come in sooner if develop any concerns. Go to ED of have worsening symptoms.
--- NOTE | 2023-04-05 13:39 | WC ---
Called Olivia, the patient's daughter, letting her know that Camille Bernal LAY OUT WORKER is calling in Augmentin to [facility] for patient due to positive wound cultures. Asked daughter to call nurses line letting us know she received the update.
[2023-04-10 14:16] VITALS: BP 182/65; PULSE 67; RESP 16; TEMP 36.2; BMI 40.6
--- NOTE | 2023-04-10 14:19 | WC ---
PT AND TIAN REQUESTED NURSE VISIT STATING WOUNDS W/ ^ DRAINAGE THAT IS SOAKING THRU TUBIS AND ONTO CIRCAIDS. UPON ASSESSMENT, WOUNDS NICE BEEFY RED, BUT BLEEDING READILY W/ LIGHT WASHING. DRAINAGE NOTED ON TUBIS AND CIRCAIDS IS BLOODY. PT STATES HIS INR LAST WEEK WAS 2.3 OR 2.5. TAKES COUMADIN DAILY. THIS NURSE CALLED AND SPOKE W/ S DEIRDRE. ORDERS FOR PT TO CALL PCP AND REQUEST ANOTHER ORDER TO RECHK INR D/T RECENT NEW ATB USE ORDERED PER WOUND CENTER. ALSO OK TO APPLY SUPER ABSORBERS TO AREA. PT'S TIAN TO CALL [facility] TOMORROW W/ INR RESULTS AND UPDATE ON WHETHER OR NOT SUPER ABSORBERS WERE HELPING.
[2023-04-16 09:51] VITALS: BP 146/70; PULSE 76; RESP 18; TEMP 36.6; BMI 40.6
--- NOTE | 2023-04-16 10:59 | PCM.WC.PN ---
History of Present Illness Date of Service: 04/16/23 Chief Complaint: Superficial ulcers to bilateral lower legs History of Wound: Patient is a 78 year old male who has multiple skin lesions scattered over his chest, arms, hands and abdomen and legs. The initial skin lesions started from a bed bugs which were causing him to scratch. He was hospitalized at the end of August for sepsis and cellulitis. He was discharged to [facility]. He has since been discharged home and has home health from [facility]. He does admit to picking at the scabbing. He has not been consistently putting anything on these areas. He is on Warfarin for history of PE, also has a history of HTN, CKD II, anemia, RAAD, bilateral leg edema and debility. He was evaluated by Dermatology. His biopsy results showed Bullous pemphigoid. Dermatology placed him on steroids oral and cream and started him on Dupixent. Wound culture was obtained on 04/02/23 of his left leg ulcer which was positive for Staphylococcus aureus, Corynebacterium striatum and Anaerobic cocci. He was started on Augmentin. Today he denies fever, chills, nausea, vomiting. Progress of Wound: Right anterior shoulder ulcer, upper mid chest and left chest ulcers are stable. They continue to have dry scabbing present. If remove the scabbing then they bleed, therefore did not attempt to remove this scabbing today. He continues to have multiple ulcers on his lower legs bilaterally in different stages of healing. Objective Data Objective Data Vital Signs: Vital Signs Temp Pulse Resp BP O2 Del Method 97.8 F 76 18 146/70 H Room Air 04/16/23 09:51 04/16/23 09:51 04/16/23 09:51 04/16/23 09:51 04/16/23 09:51 Oxygen Delivery Method Room Air Weight: 300 lb Body Mass Index (BMI) 40.6 Lab / Micro Data Micro: Microbiology 04/02/23 Unknown Wound Abcess - Leg, Left Gram Stain - Final 04/02/23 Unknown Wound Abcess - Leg, Left Wound Culture - Final Staphylococcus aureus Corynebacterium striatum 04/02/23 Unknown Wound Abcess - Leg, Left Anaerobic Culture - Final Anaerobic cocci Charges/Coding Procedures Integumentary 111xxx-113xx: [id number] Roxie subq tissue 20 sq cm/< Add On Codes: 10804 Roxie subq tissue add-on (x6) Debridement Note Debridement Note Wound debrided: #17 chest cluster Debridement Free Text: Chest ulcers were not debrided today. Post-Debridement Measurements and Additional Note: Post-Debridement Measurements/Treatment WC - Nurse 1 - General Ulcer Assessment Start: 04/02/23 10:07 Freq: Status: Active Protocol: WC.LOWEXRose Activity Type Activity Date Activity User E-sign Co-sign Detail Recorded Client Recorded Date Recorded By Document 04/02/23 10:15 AK [id number] 04/02/23 10:21 AK Document 04/10/23 14:16 [facility] [id number] 04/10/23 14:19 [facility] Document 04/16/23 09:51 [facility] [id number] 04/16/23 10:18 BMF 04/02/23 04/10/23 04/16/23 10:15 14:16 09:51 WC - Today's Visit Information Type of service Follow-up Visit Nurse-only Follow-up Visit (Physician/SYSTEM OPERATION SUPERINTENDENT Visit (Physician/SYSTEM OPERATION SUPERINTENDENT ) ) Arrival Mode Ambulatory Ambulatory,Cane Ambulatory,Cane Transfer Assistance None None Accompanied by DAUGHTER daughter Patient Identification Verified (Name & Yes Yes Yes ) Patient Requires Transmission-Based No No No Precautions Safety Precautions NA Height and Weight Body Mass Index (BMI) 40.6 40.6 40.6 BMI Classification Obese Obese Obese Vital Signs Temperature (97.8 F-99.1 F) 97.1 F L 97.1 F L 97.8 F Temperature Source Temporal Temporal Temporal Pulse Rate (60-100) 76 67 76 Pulse Location Monitor Monitor Monitor Respiratory Rate (12-18) 16 18 Respiratory rate source Observation Observation Oxygen Delivery Method Room Air Room Air Blood Pressure (90/60-120/80) 117/63 182/65 H 146/70 H Blood Pressure Mean (mm Hg) 81 104 95 Source Monitor Monitor Monitor Position Sitting Sitting Blood Pressure Location Left Arm Right Arm History Since Last Visit- (Skip if this is Patient's initial visit) Have you changed medications since your No No No last visit? Any new allergies or adverse reactions No No No Had a fall/change in ADL's that may No No No increase risk of falls Signs or symptoms of abuse and/or No No No neglect since last visit Have you been in the hospital since your No No No last visit? Has dressing in place as prescribed Yes Yes Yes Has compression in place as prescribed N/A Yes Yes Has offloadiing in place as prescribed N/A N/A N/A Experienced any changes in pain level or No No No management Left Footwear Regular Shoe Diabetic Shoe Diabetic Shoe Right Footwear Regular Shoe Diabetic Shoe Diabetic Shoe Pain Scale: 0-10 Numeric Is Patient Pain Free? Yes Yes Yes WC - Nurse 1 - General Ulcer Measurement Start: 04/02/23 10:07 Freq: Status: Active Protocol: Activity Type Activity Date Activity User E-sign Co-sign Detail Recorded Client Recorded Date Recorded By Document 04/02/23 10:15 AK [id number] 04/02/23 10:21 AK Document 04/16/23 09:51 [facility] [id number] 04/16/23 10:18 BMF 04/02/23 04/16/23 10:15 09:51 Wound Center Nurse 1 15-left chest -Combined with other wound Yes -Combined with (Name of Wound-Exactly #10-R ANT SHOUL as it is documented) ;#5-MID CH 10-RIGHT ANTERIOR SHOULDER -Combined with other wound No Yes -Combined with (Name of Wound-Exactly #15, #5 as it is documented) -Current Size (cm) - Length 2 -Current Size (cm) - Width 2 -Current Size (cm) - Depth 0.1 -Total Square Cm 4 -Photo Taken Yes -Undermining/Tunneling No -Circular Undermining No -Change in Wound Grade/Stage No -Exudate Amt Large -Exudate Type Serosanguineous -Wound Margin Distinct, Outline Attached -Granulation Amt Large (67-100%) -Granulation Quality Red -Slough/Fibrin Yes -Necrosis Amt Small (1-33%) -Necrotic Tissue Type Adherent Slough -Structure Exposed N/A -Texture (Uyen-wound Skin Appearance) Assessed, Scarring,Rash -Moisture (Uyen-wound Skin Appearance) No Abnormality, Assessed -Color (Uyen-wound Skin Appearance) Assessed -Temperature (Uyen-wound Skin No Abnormality Appearance) (Pt Warm) -Tenderness on Palpation (Uyen-wound No Skin Appearance) -Ulcer Cleansing Soap and Water -Foul Odor after Cleansing No -Anesthetic Used 4% Lidocaine Solution #5 mid chest -Combined with other wound Yes -Combined with (Name of Wound-Exactly L chest #15, #10 as it is documented) -Current Size (cm) - Length 4 -Current Size (cm) - Width 9 -Current Size (cm) - Depth 0.1 -Total Square Cm 36 -Photo Taken Yes -Tunneling No -Undermining/Tunneling No -Circular Undermining No -Change in Wound Grade/Stage No -Exudate Amt Medium -Exudate Type Serosanguineous -Wound Margin Distinct, Outline Attached -Granulation Amt Large (67-100%) -Granulation Quality Red -Slough/Fibrin Yes -Necrosis Amt Small (1-33%) -Necrotic Tissue Type Adherent Slough -Structure Exposed N/A -Texture (Uyen-wound Skin Appearance) Assessed, Scarring -Moisture (Uyen-wound Skin Appearance) No Abnormality, Assessed -Color (Uyen-wound Skin Appearance) Assessed, Erythema -Temperature (Uyen-wound Skin No Abnormality Appearance) (Pt Warm) -Tenderness on Palpation (Uyen-wound No Skin Appearance) -Ulcer Cleansing Rinsed/ Irrigated with Saline -Foul Odor after Cleansing No -Anesthetic Used 4% Lidocaine Solution #18- R LAT UPPER LEG CLUSTER -Combined with other wound No -Current Size (cm) - Length 5.5 -Current Size (cm) - Width 13.5 -Current Size (cm) - Depth 0.1 -Total Square Cm 74.25 -Date of Last Picture (Recall this 04/16/23 field) -Photo Taken Yes -Epithelialization Small 1-33% -Tunneling No -Undermining/Tunneling No -Circular Undermining No -Exudate Amt Medium -Exudate Type Sanguineous -Wound Margin Distinct, Outline Attached -Granulation Amt Large (67-100%) -Granulation Quality Red -Slough/Fibrin Yes -Necrosis Amt Small (1-33%) -Necrotic Tissue Type Eschar -Texture (Uyen-wound Skin Appearance) Assessed, Scarring -Moisture (Uyen-wound Skin Appearance) Assessed -Color (Uyen-wound Skin Appearance) Assessed -Temperature (Uyen-wound Skin No Abnormality Appearance) (Pt Warm) -Tenderness on Palpation (Uyen-wound No Skin Appearance) -Ulcer Cleansing Soap and Water -Foul Odor after Cleansing No -Anesthetic Used 4% Lidocaine Solution #17- CHEST CLUSTER -Combined with other wound No -Current Size (cm) - Length 5.5 -Current Size (cm) - Width 21.5 -Current Size (cm) - Depth 0.1 -Total Square Cm 118.25 -Date of Last Picture (Recall this 04/16/23 field) -Photo Taken Yes -Epithelialization None Present -Tunneling No -Undermining/Tunneling No -Circular Undermining No -Exudate Amt None Present -Wound Margin Distinct, Outline Attached -Granulation Amt None Present (0 %) -Slough/Fibrin Yes -Necrosis Amt Large (67-100%) -Necrotic Tissue Type Eschar -Texture (Uyen-wound Skin Appearance) Assessed, Scarring -Moisture (Uyen-wound Skin Appearance) Assessed -Color (Uyen-wound Skin Appearance) Assessed -Temperature (Uyen-wound Skin No Abnormality Appearance) (Pt Warm) -Tenderness on Palpation (Uyen-wound No Skin Appearance) -Ulcer Cleansing Soap and Water -Foul Odor after Cleansing No -Anesthetic Used 4% Lidocaine Solution #16 L Upper LAT Hartman CLUSTER -Combined with other wound No No -Current Size (cm) - Length 10 -Current Size (cm) - Width 6 -Current Size (cm) - Depth 0.1 -Total Square Cm 60 -Date of Last Picture (Recall this 04/16/23 field) -Photo Taken Yes -Epithelialization Small 1-33% -Tunneling No -Undermining/Tunneling No -Circular Undermining No -Exudate Amt Medium -Exudate Type Sanguineous -Wound Margin Distinct, Outline Attached -Granulation Amt Large (67-100%) -Granulation Quality Red -Slough/Fibrin Yes -Necrosis Amt Small (1-33%) -Necrotic Tissue Type Eschar -Texture (Uyen-wound Skin Appearance) Assessed, Scarring -Moisture (Uyen-wound Skin Appearance) Assessed -Color (Uyen-wound Skin Appearance) Assessed -Temperature (Uyen-wound Skin No Abnormality Appearance) (Pt Warm) -Tenderness on Palpation (Uyen-wound No Skin Appearance) -Ulcer Cleansing Soap and Water -Foul Odor after Cleansing No -Anesthetic Used 4% Lidocaine Solution 14.RLE HARTMAN cluster -Combined with other wound No -Current Size (cm) - Length 8 -Current Size (cm) - Width 9.7 -Current Size (cm) - Depth 0.1 -Total Square Cm 77.6 -Date of Last Picture (Recall this 04/16/23 field) -Photo Taken Yes -Epithelialization Small 1-33% -Tunneling No -Undermining/Tunneling No -Circular Undermining No -Exudate Amt Medium -Exudate Type Sanguineous -Wound Margin Distinct, Outline Attached -Granulation Amt Large (67-100%) -Granulation Quality Red -Slough/Fibrin Yes -Necrosis Amt Small (1-33%) -Necrotic Tissue Type Eschar -Texture (Uyen-wound Skin Appearance) Assessed, Scarring -Moisture (Uyen-wound Skin Appearance) Assessed -Color (Uyen-wound Skin Appearance) Assessed -Temperature (Uyen-wound Skin No Abnormality Appearance) (Pt Warm) -Tenderness on Palpation (Uyen-wound No Skin Appearance) -Ulcer Cleansing Soap and Water -Foul Odor after Cleansing No -Anesthetic Used 4% Lidocaine Solution 13. 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 -Combined with other wound No -Current Size (cm) - Length 20.2 -Current Size (cm) - Width 10 -Current Size (cm) - Depth 0.2 -Total Square Cm 202.0 -Date of Last Picture (Recall this 04/16/23 field) -Photo Taken Yes -Epithelialization Small 1-33% -Tunneling No -Undermining/Tunneling No -Circular Undermining No -Exudate Amt Medium -Exudate Type Sanguineous -Wound Margin Distinct, Outline Attached -Granulation Amt Large (67-100%) -Granulation Quality Red -Slough/Fibrin Yes -Necrosis Amt Small (1-33%) -Necrotic Tissue Type Eschar -Texture (Uyen-wound Skin Appearance) Assessed, Scarring -Moisture (Uyen-wound Skin Appearance) Assessed -Color (Uyen-wound Skin Appearance) Assessed -Temperature (Uyen-wound Skin No Abnormality Appearance) (Pt Warm) -Tenderness on Palpation (Uyen-wound No Skin Appearance) -Ulcer Cleansing Soap and Water -Foul Odor after Cleansing No -Anesthetic Used 4% Lidocaine Solution Lower Limb Edema Present Yes Right Calf (cm) 47.5 Right Ankle (cm) 25.4 Left Calf (cm) 47 Left Ankle (cm) 26.6 WC - Nurse 2 - General Ulcer CM Notes Start: 04/02/23 10:07 Freq: Status: Active Protocol: Activity Type Activity Date Activity User E-sign Co-sign Detail Recorded Client Recorded Date Recorded By Document 04/02/23 10:42 [id number] 04/02/23 10:49 JAYESH 04/02/23 10:42 Wound Center Nurse 2 15-left chest -Correct Patient No -Correct Side, Site, Position No -Correct Procedure No -Procedure Performed No -Wound/Ulcer Outcome Not Healed 10-RIGHT ANTERIOR SHOULDER -Correct Patient No -Correct Side, Site, Position No -Correct Procedure No -Procedure Performed No -Wound/Ulcer Outcome Not Healed #5 mid chest -Correct Patient No -Correct Side, Site, Position No -Correct Procedure No -Procedure Performed No -Wound/Ulcer Outcome Not Healed #16 L Upper LAT Hartman CLUSTER -Time 10:42 -Correct Patient Yes -Correct Side, Site, Position Yes -Correct Procedure Yes -Procedure Performed Yes -Type of Procedure Debridement -Clinical Debridement Subcutaneous -Tissue Removed Subcutaneous -Post Debridement (cm) - Length 6.2 -Post Debridement (cm) - Width 3.0 -Post Debridement (cm) - Depth 0.1 -Total Square (Post) (cm) 18.60 -Area of Debridement (cm) - Length 6.2 -Area of Debridement (cm) - Width 3.0 -Total Square (Area) (cm) 18.60 -Tunneling No -Undermining/Tunneling No -Circular Undermining No -Wound/Ulcer Outcome Not Healed -Ulcer Cleansing Rinsed/ Irrigated with Saline -Foul Odor after Cleansing No -Bioengineered Tissue No -Bleeding Controlled with Pressure -Treatment Response Procedure Tolerated Well -Offloading No -Debridement - Subq, 1st 20sq cm No 14.RLE HARTMAN cluster -Time 10:43 -Correct Patient Yes -Correct Side, Site, Position Yes -Correct Procedure Yes -Procedure Performed Yes -Type of Procedure Debridement -Clinical Debridement Subcutaneous -Tissue Removed Subcutaneous -Post Debridement (cm) - Length 10 -Post Debridement (cm) - Width 4.5 -Post Debridement (cm) - Depth 0.1 -Total Square (Post) (cm) 45.0 -Area of Debridement (cm) - Length 10 -Area of Debridement (cm) - Width 4.5 -Total Square (Area) (cm) 45.0 -Tunneling No -Undermining/Tunneling No -Circular Undermining No -Wound/Ulcer Outcome Not Healed -Ulcer Cleansing Rinsed/ Irrigated with Saline -Foul Odor after Cleansing No -Bioengineered Tissue No -Bleeding Controlled with Pressure -Treatment Response Procedure Tolerated Well -Offloading No -Debridement - Subq, 1st 20sq cm Yes -Debridement, SubQ, ea addt'l 20sq cm 6 or part thereof 13. 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 -Time 10:44 -Correct Patient Yes -Correct Side, Site, Position Yes -Correct Procedure Yes -Procedure Performed Yes -Type of Procedure Debridement -Clinical Debridement Subcutaneous -Tissue Removed Subcutaneous -Post Debridement (cm) - Length 6.5 -Post Debridement (cm) - Width 9.0 -Post Debridement (cm) - Depth 0.1 -Total Square (Post) (cm) 58.50 -Area of Debridement (cm) - Length 6.5 -Area of Debridement (cm) - Width 9.0 -Total Square (Area) (cm) 58.50 -Tunneling No -Undermining/Tunneling No -Circular Undermining No -Wound/Ulcer Outcome Not Healed -Ulcer Cleansing Rinsed/ Irrigated with Saline -Foul Odor after Cleansing No -Bioengineered Tissue No -Bleeding Controlled with Pressure -Treatment Response Procedure Tolerated Well -Offloading No -Debridement - Subq, 1st 20sq cm No Pain Scale: 0-10 Numeric Is Patient Pain Free? Yes WC - Nurse 3 - General Ulcer D/C NN Start: 04/02/23 10:07 Freq: Status: Active Protocol: Activity Type Activity Date Activity User E-sign Co-sign Detail Recorded Client Recorded Date Recorded By Document 04/02/23 11:15 AK [id number] 04/02/23 11:17 AK Document 04/10/23 14:16 [facility] [id number] 04/10/23 14:19 [facility] Document 04/16/23 10:47 DL [id number] 04/16/23 10:51 DL 04/02/23 04/10/23 04/16/23 11:15 14:16 10:47 Wound Care Center Nurse 3 #18- R LAT UPPER LEG CLUSTER -Ulcer Cleansing Rinsed/ Irrigated with Saline -Foul Odor after Cleansing No -Primary Dressing Applied Aquacel AG 4x4, NonAdherent Contact Layer -Primary Dressing Covered/Secured with Dry Gauze & Roll Gauze, Secured with Tape -Aquacel AG 4x4 1 #17- CHEST CLUSTER -Ulcer Cleansing Rinsed/ Irrigated with Saline -Foul Odor after Cleansing No -Primary Dressing Applied Aquacel AG 4x4, NonAdherent Contact Layer -Primary Dressing Covered/Secured with Dry Gauze, Secured with Tape -Aquacel AG 4x4 1 #16 L Upper LAT Hartman CLUSTER -Ulcer Cleansing Rinsed/ Soap and Water Rinsed/ Irrigated with Irrigated with Saline Saline -Foul Odor after Cleansing No No No -Negative Pressure Wound Therapy N/A -Primary Dressing Applied Aquacel AG 4x4, Aquacel AG 4x4, NonAdherent NonAdherent NonAdherent Contact Layer Contact Layer Contact Layer, Optilok 6.5x10 -Other Dressing aquacel ag -Primary Dressing Covered/Secured with Dry Gauze & Dry Gauze & Dry Gauze & Roll Gauze, Roll Gauze, Roll Gauze, Secured with Secured with Secured with Tape Tape Tape -Aquacel AG 4x4 1 3 -Optilok 6.5x10 5 14.RLE HARTMAN cluster -Ulcer Cleansing Rinsed/ Soap and Water Rinsed/ Irrigated with Irrigated with Saline Saline -Foul Odor after Cleansing No No No -Negative Pressure Wound Therapy N/A -Primary Dressing Applied NonAdherent Aquacel AG 4x4, NonAdherent Contact Layer NonAdherent Contact Layer Contact Layer, Optilok 6.5x10 -Other Dressing ag -Primary Dressing Covered/Secured with Dry Gauze & Dry Gauze & Dry Gauze & Roll Gauze, Roll Gauze, Roll Gauze, Secured with Secured with Secured with Tape Tape Tape -Aquacel AG 4x4 0 -Optilok 6.5x10 0 13. 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 -Ulcer Cleansing Rinsed/ Soap and Water Rinsed/ Irrigated with Irrigated with Saline Saline -Foul Odor after Cleansing No No No -Negative Pressure Wound Therapy N/A -Primary Dressing Applied NonAdherent Aquacel AG 4x4, NonAdherent Contact Layer NonAdherent Contact Layer Contact Layer, Optilok 6.5x10 -Other Dressing ag aqaucel ag -Primary Dressing Covered/Secured with Dry Gauze & Dry Gauze & Dry Gauze & Roll Gauze, Roll Gauze, Roll Gauze, Secured with Secured with Secured with Tape Tape Tape -Aquacel AG 4x4 0 -Optilok 6.5x10 0 GRACIELA -Tubular Bandage Double Layer Double Layer -Size of Tubigrip Used Size F Size E -Size E ($) 2 -Size F ($) 4 Treatment Response Procedure Procedure Tolerated Well Tolerated Well Vital Signs Temperature (97.8 F-99.1 F) 97.1 F L Temperature Source Temporal Pulse Rate (60-100) 67 Pulse Location Monitor Respiratory Rate (12-18) 16 Respiratory rate source Observation Oxygen Delivery Method Room Air Blood Pressure (90/60-120/80) 182/65 H Blood Pressure Mean (mm Hg) 104 Source Monitor Position Sitting Blood Pressure Location Left Arm Pain Scale: 0-10 Numeric Is Patient Pain Free? Yes Yes Yes WC - Visit Discharge Discharge Condition Stable Stable Stable Ambulatory Status Ambulatory Ambulatory,Cane Ambulatory Transportation Private Auto Private Auto Private Auto Accompanied by DAUGHTER TIAN Medication Reconcilliation completed & Yes provided to patient/care provider Clinical Summary of Care Provided Yes Facility Type Home Health Orders Sent No Additional Wound Wound debrided: #13 upper lateral leg, #16 Anterior leg ulcers, #18 lateral lower leg clust Laterality: Left Wound Grade/Stage: Stage II Type of Debridement: Excisional debridement Anesthesia Used: 4% Lidocaine Solution and 5% Lidocaine Gel Depth: Down to and including healthy tissue and in the subcutaneous layer Percentage of wound debrided: 100 Instrument Used: 5mm curette and - Tissue Removed: Devitalized tissue and slough Severity: Limited To Skin Breakdown Amount of bleeding with debridement: Mild Bleeding Controlled with: Pressure and Compression and gauze Patient tolerated procedure: Patient tolerated procedure well Additional Wound Wound debrided: #14 right lower leg cluster Laterality: Right Wound Grade/Stage: Stage II Type of Debridement: Excisional debridement Anesthesia Used: 4% Lidocaine Solution and 5% Lidocaine Gel Depth: Down to and including healthy tissue and in the subcutaneous layer Percentage of wound debrided: 100 Instrument Used: 5mm curette and - Tissue Removed: Deviatalized tissue and slough Severity: Limited To Skin Breakdown Amount of bleeding with debridement: Mild Bleeding Controlled with: Pressure and Compression and gauze Patient tolerated procedure: Patient tolerated procedure well Assessment/Plan Assessment/Plan (1) Ulcer of chest wall, limited to breakdown of skin: CODE(S): L98.491 - Non-pressure chronic ulcer of skin of other sites limited to breakdown of skin (2) Ulcer of left lower extremity, limited to breakdown of skin: CODE(S): L97.921 - Non-pressure chronic ulcer of unspecified part of left lower leg limited to breakdown of skin (3) Ulcer of right lower extremity, limited to breakdown of skin: CODE(S): L97.911 - Non-pressure chronic ulcer of unspecified part of right lower leg limited to breakdown of skin (4) Age-related physical debility: CODE(S): R54 - Age-related physical debility (5) Edema of both legs: CODE(S): R60.0 - Localized edema PLAN: Plan Patient evaluated at the wound healing center today. Wound care to the all of the ulcers will be adaptic covered silver then top with gauze daily after washing the ulcers with soap and water. Compression - Tubigrip topped with circaid compression. Wound culture obtained of left leg ulcer on 04/02/23 which was positive for Staphylococcus aureus, Corynebacterium striatum and Anaerobic cocci which is being treated with Augmentin. A wound culture was obtained on 11/14/22 of the upper chest/anterior shoulder ulcers which was positive for Staphylococcus aureus, Kocuria kristinae and Gram positive faraz. He has completed the Doxycycline. He has [facility] to help with the wound care. Stressed importance of not picking at these ulcers. Keep legs elevated when sitting. Encouraged to sleep in a bed, but he has slept in a recliner for 30 years. He was evaluated by Dermatology recently. His biopsy results showed Bullous pemphigoid. Dermatology placed him on steroids oral and cream and started him on Dupixent. Follow up 2 weeks to see me, since I will be out of town next week. Call or come in sooner if develop any concerns. Go to ED of have worsening symptoms.
== END 2023-04-27 23:59 | disposition home or self-care (01) ==
LOC: WC 09:45
PROVIDERS: PCP Nurse Practitioner Family; Referring Provider Nurse Practitioner Family; Visit Provider Nurse Practitioner Family
DX: L97.911 Non-pressure chronic ulcer of unspecified part of right lower leg limited to breakdown of skin (principal); L98.491 Non-pressure chronic ulcer of skin of other sites limited to breakdown of skin; L97.921 Non-pressure chronic ulcer of unspecified part of left lower leg limited to breakdown of skin; I10 Essential (primary) hypertension; R60.0 Localized edema; I89.0 Lymphedema, not elsewhere classified; R54 Age-related physical debility
CPT/HCPCS: 11042; 11045; 87070; 87075; 87077; 87186; 87205; 99213; G0463

== ENCOUNTER 2023-05-14 09:45 | Outpatient (RCR) | payer MEDICARE, MEDICAID, SELFPAY ==
[2023-04-28 00:47] VITALS: BP 146/70; PULSE 76; RESP 18; TEMP 36.6; BMI 40.6
[2023-04-30 09:50] VITALS: BP 116/59; PULSE 71; RESP 16; TEMP 37; BMI 40.6
--- NOTE | 2023-04-30 12:04 | PCM.WC.PN ---
History of Present Illness Date of Service: 04/30/23 Chief Complaint: Superficial ulcers to bilateral lower legs History of Wound: Patient is a 78 year old male who has multiple skin lesions scattered over his chest, arms, hands and abdomen and legs. The initial skin lesions started from a bed bugs which were causing him to scratch. He was hospitalized at the end of August for sepsis and cellulitis. He was discharged to [facility]. He has since been discharged home and has home health from [facility]. He does admit to picking at the scabbing. He has not been consistently putting anything on these areas. He is on Warfarin for history of PE, also has a history of HTN, CKD II, anemia, RAAD, bilateral leg edema and debility. He was evaluated by Dermatology. His biopsy results showed Bullous pemphigoid. Dermatology placed him on steroids oral and cream and started him on Dupixent. Wound culture was obtained on 04/02/23 of his left leg ulcer which was positive for Staphylococcus aureus, Corynebacterium striatum and Anaerobic cocci. He was started on Augmentin. Today he denies fever, chills, nausea, vomiting. Progress of Wound: Right anterior shoulder ulcer, upper mid chest and left chest ulcers are stable. They continue to have dry scabbing present. No longer debride these areas since he started to see Dermatology. They have him applying a steroid cream to them. The ulcers he has on his legs bilaterally are becoming more superficial. His edema is much improved wearing the tubigrip 2 layer wraps. Objective Data Objective Data Vital Signs: Vital Signs Temp Pulse Resp BP O2 Del Method 98.6 F 71 16 116/59 L Room Air 04/30/23 09:50 04/30/23 09:50 04/30/23 09:50 04/30/23 09:50 04/30/23 09:50 Oxygen Delivery Method Room Air Weight: 300 lb Body Mass Index (BMI) 40.6 Charges/Coding Visit Charges Office Visits / Consults: 89330 OV L4 Est Debridement Note Debridement Note Wound debrided: #17 chest cluster Debridement Free Text: Chest ulcers were not debrided today. 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 TEACHER ) Arrival Mode Ambulatory Transfer Assistance None Accompanied by daughter Patient Identification Verified (Name & Yes ) Patient Requires Transmission-Based No Precautions Height and Weight Body Mass Index (BMI) 40.6 BMI Classification Obese Vital Signs Temperature (97.8 F-99.1 F) 98.6 F Temperature Source Temporal Pulse Rate (60-100) 71 Pulse Location Monitor Respiratory Rate (12-18) 16 Respiratory rate source Observation Oxygen Delivery Method Room Air Blood Pressure (90/60-120/80) 116/59 L Blood Pressure Mean (mm Hg) 78 Source Monitor Position Sitting Blood Pressure Location Left Arm History Since Last Visit- (Skip if this is Patient's initial visit) Have you changed medications since your No last visit? Any new allergies or adverse reactions No Had a fall/change in ADL's that may No increase risk of falls Signs or symptoms of abuse and/or No neglect since last visit Have you been in the hospital since your No last visit? Has dressing in place as prescribed Yes Has compression in place as prescribed Yes Has offloadiing in place as prescribed N/A Experienced any changes in pain level or No management Left Footwear Diabetic Shoe Right Footwear Diabetic Shoe Pain Scale: 0-10 Numeric Is Patient Pain Free? Yes - Nurse 1 - General Ulcer Measurement Start: 04/30/23 09:50 Freq: Status: Active Protocol: Activity Type Activity Date Activity User E-sign Co-sign Detail Recorded Client Recorded Date Recorded By Document 04/30/23 09:50 [facility] [id number] 04/30/23 10:00 [facility] 04/30/23 09:50 Wound Center Nurse 1 14.RLE HARTMAN cluster -Combined with other wound No -Current Size (cm) - Length 0.1 -Current Size (cm) - Width 0.1 -Current Size (cm) - Depth 0.1 -Total Square Cm 0.01 -Date of Last Picture (Recall this 04/30/23 field) -Photo Taken Yes -Epithelialization Large 67-100% -Tunneling No -Undermining/Tunneling No -Circular Undermining No #18- R LAT UPPER LEG CLUSTER -Combined with other wound No -Current Size (cm) - Length 4 -Current Size (cm) - Width 4.5 -Current Size (cm) - Depth 0.1 -Total Square Cm 18.0 -Date of Last Picture (Recall this 04/30/23 field) -Photo Taken Yes -Epithelialization Small 1-33% -Tunneling No -Undermining/Tunneling No -Circular Undermining No -Exudate Amt Medium -Exudate Type Serosanguineous -Wound Margin Distinct, Outline Attached -Granulation Amt Medium (34-66%) -Granulation Quality Red -Slough/Fibrin Yes -Necrosis Amt Medium (34-66%) -Necrotic Tissue Type Eschar -Texture (Uyen-wound Skin Appearance) Assessed, Scarring -Moisture (Uyen-wound Skin Appearance) Assessed,Dry/ Scaly -Color (Uyen-wound Skin Appearance) Assessed -Temperature (Uyen-wound Skin No Abnormality Appearance) (Pt Warm) -Tenderness on Palpation (Uyen-wound No Skin Appearance) -Ulcer Cleansing Soap and Water -Foul Odor after Cleansing No -Anesthetic Used 4% Lidocaine Solution #17- CHEST CLUSTER -Combined with other wound No -Current Size (cm) - Length 3 -Current Size (cm) - Width 1.5 -Current Size (cm) - Depth 0.1 -Total Square Cm 4.5 -Date of Last Picture (Recall this 04/30/23 field) -Photo Taken Yes -Epithelialization Small 1-33% -Tunneling No -Undermining/Tunneling No -Circular Undermining No -Exudate Amt Medium -Exudate Type Serosanguineous -Wound Margin Distinct, Outline Attached -Granulation Amt Small (1-33%) -Granulation Quality Red -Slough/Fibrin Yes -Necrosis Amt Large (67-100%) -Necrotic Tissue Type Eschar -Texture (Uyen-wound Skin Appearance) Assessed, Scarring -Moisture (Uyen-wound Skin Appearance) Assessed -Color (Uyen-wound Skin Appearance) Assessed -Temperature (Ueyn-wound Skin No Abnormality Appearance) (Pt Warm) -Tenderness on Palpation (Uyen-wound No Skin Appearance) -Ulcer Cleansing Soap and Water -Foul Odor after Cleansing No -Anesthetic Used 5% Lidocaine Gel #16 L Upper LAT Hartman CLUSTER -Combined with other wound No -Current Size (cm) - Length 7.6 -Current Size (cm) - Width 9 -Current Size (cm) - Depth 0.1 -Total Square Cm 68.4 -Date of Last Picture (Recall this 04/30/23 field) -Photo Taken Yes -Epithelialization Small 1-33% -Tunneling No -Undermining/Tunneling No -Circular Undermining No -Exudate Amt Medium -Exudate Type Serosanguineous -Wound Margin Distinct, Outline Attached -Granulation Amt Large (67-100%) -Granulation Quality Red -Slough/Fibrin Yes -Necrosis Amt Small (1-33%) -Necrotic Tissue Type Adherent Slough -Texture (Uyen-wound Skin Appearance) Assessed, Scarring -Moisture (Uyen-wound Skin Appearance) Assessed -Color (Uyen-wound Skin Appearance) Assessed -Temperature (Uyen-wound Skin No Abnormality Appearance) (Pt Warm) -Tenderness on Palpation (Uyen-wound No Skin Appearance) -Ulcer Cleansing Soap and Water -Foul Odor after Cleansing No -Anesthetic Used 4% Lidocaine Solution 13. 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 -Combined with other wound No -Current Size (cm) - Length 4.5 -Current Size (cm) - Width 3 -Current Size (cm) - Depth 0.1 -Total Square Cm 13.5 -Date of Last Picture (Recall this 04/30/23 field) -Photo Taken Yes -Epithelialization Small 1-33% -Tunneling No -Undermining/Tunneling No -Circular Undermining No -Exudate Amt Medium -Exudate Type Serosanguineous -Wound Margin Distinct, Outline Attached -Granulation Amt Large (67-100%) -Granulation Quality Red -Slough/Fibrin No -Necrosis Amt None Present (0 %) -Texture (Uyen-wound Skin Appearance) Assessed, Scarring -Moisture (Uyen-wound Skin Appearance) Assessed -Color (Uyen-wound Skin Appearance) Assessed -Temperature (Uyen-wound Skin No Abnormality Appearance) (Pt Warm) -Tenderness on Palpation (Uyen-wound No Skin Appearance) -Ulcer Cleansing Soap and Water -Foul Odor after Cleansing No -Anesthetic Used 4% Lidocaine Solution Lower Limb Edema Present Yes Right Calf (cm) 50 Right Ankle (cm) 28.5 Left Calf (cm) 49.5 Left Ankle (cm) 30.5 WC - Nurse 2 - General Ulcer CM Notes Start: 04/30/23 09:50 Freq: Status: Active Protocol: Activity Type Activity Date Activity User E-sign Co-sign Detail Recorded Client Recorded Date Recorded By Document 04/30/23 10:13 JAYESH [id number] 04/30/23 10:19 JAYESH 04/30/23 10:13 Wound Center Nurse 2 14.RLE HARTMAN cluster -Time 10:15 -Correct Patient No -Correct Side, Site, Position No -Correct Procedure No -Procedure Performed No -Post Debridement (cm) - Length 0 -Post Debridement (cm) - Width 0 -Post Debridement (cm) - Depth 0 -Total Square (Post) (cm) 0 -Area of Debridement (cm) - Length 0 -Area of Debridement (cm) - Width 0 -Total Square (Area) (cm) 0 -Tunneling No -Undermining/Tunneling No -Circular Undermining No -Wound/Ulcer Outcome Healed- Epithelialized -Ulcer Cleansing Rinsed/ Irrigated with Saline -Foul Odor after Cleansing No -Bioengineered Tissue No #18- R LAT UPPER LEG CLUSTER -Time 10:14 -Correct Patient No -Correct Side, Site, Position No -Correct Procedure No -Procedure Performed No -Post Debridement (cm) - Length 3.5 -Post Debridement (cm) - Width 5.0 -Post Debridement (cm) - Depth 0.1 -Total Square (Post) (cm) 17.50 -Area of Debridement (cm) - Length 3.5 -Area of Debridement (cm) - Width 5.0 -Total Square (Area) (cm) 17.50 -Tunneling No -Undermining/Tunneling No -Circular Undermining No -Wound/Ulcer Outcome Not Healed -Ulcer Cleansing Rinsed/ Irrigated with Saline -Foul Odor after Cleansing No -Bioengineered Tissue No -Bleeding Controlled with Pressure -Treatment Response Procedure Tolerated Well -Offloading No -Debridement - Subq, 1st 20sq cm No #17- CHEST CLUSTER -Correct Patient No -Correct Side, Site, Position No -Correct Procedure No -Procedure Performed No -Wound/Ulcer Outcome Not Healed #16 L Upper LAT Hartman CLUSTER -Time 10:14 -Correct Patient No -Correct Side, Site, Position No -Correct Procedure No -Procedure Performed No -Post Debridement (cm) - Length 6.8 -Post Debridement (cm) - Width 4.0 -Post Debridement (cm) - Depth 0.1 -Total Square (Post) (cm) 27.20 -Area of Debridement (cm) - Length 6.8 -Area of Debridement (cm) - Width 4.0 -Total Square (Area) (cm) 27.20 -Tunneling No -Undermining/Tunneling No -Circular Undermining No -Wound/Ulcer Outcome Not Healed -Ulcer Cleansing Rinsed/ Irrigated with Saline -Foul Odor after Cleansing No -Bioengineered Tissue No -Bleeding Controlled with Pressure -Treatment Response Procedure Tolerated Well -Offloading No -Debridement - Subq, 1st 20sq cm No 13. 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 -Correct Patient No -Correct Side, Site, Position No -Correct Procedure No -Procedure Performed No -Post Debridement (cm) - Length 3.5 -Post Debridement (cm) - Width 3.0 -Post Debridement (cm) - Depth 0.1 -Total Square (Post) (cm) 10.50 -Area of Debridement (cm) - Length 3.5 -Area of Debridement (cm) - Width 3.0 -Total Square (Area) (cm) 10.50 -Wound/Ulcer Outcome Not Healed -Debridement - Subq, 1st 20sq cm No Pain Scale: 0-10 Numeric Is Patient Pain Free? Yes WC - Nurse 3 - General Ulcer D/C NN Start: 04/30/23 09:50 Freq: Status: Active Protocol: Activity Type Activity Date Activity User E-sign Co-sign Detail Recorded Client Recorded Date Recorded By Document 04/30/23 10:21 JAYESH [id number] 04/30/23 10:29 JAYESH 04/30/23 10:21 Wound Care Center Nurse 3 #18- R LAT UPPER LEG CLUSTER -Ulcer Cleansing Rinsed/ Irrigated with Saline -Foul Odor after Cleansing No -Primary Dressing Applied Aquacel AG 4x4, NonAdherent Contact Layer -Primary Dressing Covered/Secured with Dry Gauze & Roll Gauze, Secured with Tape -Aquacel AG 4x4 1 #17- CHEST CLUSTER -Ulcer Cleansing Rinsed/ Irrigated with Saline -Foul Odor after Cleansing No -Primary Dressing Applied Aquacel AG 4x4, NonAdherent Contact Layer -Primary Dressing Covered/Secured with Dry Gauze & Roll Gauze -Aquacel AG 4x4 0 #16 L Upper LAT Hartman CLUSTER -Ulcer Cleansing Rinsed/ Irrigated with Saline -Foul Odor after Cleansing No -Primary Dressing Applied Aquacel AG 4x4, NonAdherent Contact Layer -Primary Dressing Covered/Secured with Dry Gauze,Dry Gauze & Roll Gauze,Secured with Tape -Aquacel AG 4x4 0 13. 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 -Ulcer Cleansing Rinsed/ Irrigated with Saline -Foul Odor after Cleansing No -Primary Dressing Applied Aquacel AG 4x4, NonAdherent Contact Layer -Aquacel AG 4x4 0 Right -Tubular Bandage Double Layer -Size of Tubigrip Used Size E -Size E ($) 2 Left -Tubular Bandage Double Layer -Size of Tubigrip Used Size E -Size E ($) 2 Pain Scale: 0-10 Numeric Is Patient Pain Free? Yes WC - Visit Discharge Discharge Condition Stable Ambulatory Status Ambulatory Transportation Private Auto Accompanied by daughter Medication Reconcilliation completed & Yes provided to patient/care provider Clinical Summary of Care Provided Yes Additional Wound Wound debrided: #13 posterior/lateral leg cluster, #16 upper lateral leg cluster Laterality: Left Wound Grade/Stage: Stage II Anesthesia Used: 4% Lidocaine Solution Depth: Down to and including healthy tissue and in the subcutaneous layer Percentage of wound debrided: 100 Instrument Used: - Tissue Removed: Devitalized tissue and slough removed with moistened gauze. Severity: Limited To Skin Breakdown Amount of bleeding with debridement: Mild Bleeding Controlled with: Pressure and Compression and gauze Patient tolerated procedure: Patient tolerated procedure well Additional Wound Wound debrided: #18 right lateral leg ulcer cluster Laterality: Right Wound Grade/Stage: Stage II Anesthesia Used: 4% Lidocaine Solution Depth: Down to and including healthy tissue and in the subcutaneous layer Percentage of wound debrided: 100 Tissue Removed: Deviatalized tissue and slough removed with moistened gauze Severity: Limited To Skin Breakdown Amount of bleeding with debridement: Mild Bleeding Controlled with: Pressure and Compression and gauze Patient tolerated procedure: Patient tolerated procedure well Assessment/Plan Assessment/Plan (1) Ulcer of chest wall, limited to breakdown of skin: CODE(S): L98.491 - Non-pressure chronic ulcer of skin of other sites limited to breakdown of skin (2) Ulcer of left lower extremity, limited to breakdown of skin: CODE(S): L97.921 - Non-pressure chronic ulcer of unspecified part of left lower leg limited to breakdown of skin (3) Ulcer of right lower extremity, limited to breakdown of skin: CODE(S): L97.911 - Non-pressure chronic ulcer of unspecified part of right lower leg limited to breakdown of skin (4) Age-related physical debility: CODE(S): R54 - Age-related physical debility (5) Edema of both legs: CODE(S): R60.0 - Localized edema PLAN: Plan Patient evaluated at the wound healing center today. Wound care to the all of the ulcers will be adaptic covered silver then top with gauze daily after washing the ulcers with soap and water. Compression - Tubigrip topped with circaid compression. Wound culture obtained of left leg ulcer on 04/02/23 which was positive for Staphylococcus aureus, Corynebacterium striatum and Anaerobic cocci, he completed the Augmentin. He just had his INR rechecked today since completing his antibiotics. A wound culture was obtained on 11/14/22 of the upper chest/anterior shoulder ulcers which was positive for Staphylococcus aureus, Kocuria kristinae and Gram positive faraz. He has completed the Doxycycline. He has [facility] to help with the wound care. Stressed importance of not picking at these ulcers. Keep legs elevated when sitting. Encouraged to sleep in a bed, but he has slept in a recliner for 30 years. He was evaluated by Dermatology recently. His biopsy results showed Bullous pemphigoid. Dermatology placed him on steroids oral and cream and started him on Dupixent. Follow up 2 weeks. Call or come in sooner if develop any concerns. Go to ED of have worsening symptoms.
[2023-05-14 09:45] VITALS: BP 171/66; PULSE 68; RESP 18; TEMP 36.3; BMI 40.6
--- NOTE | 2023-05-14 11:17 | PN.PCM_ITS ---
History of Present Illness Date of Service: 05/14/23 Chief Complaint: Superficial ulcers to bilateral lower legs History of Wound: Patient is a 78 year old male who has multiple skin lesions scattered over his chest, arms, hands and abdomen and legs. The initial skin lesions started from a bed bugs which were causing him to scratch. He was hospitalized at the end of August for sepsis and cellulitis. He was discharged to [facility]. He has since been discharged home and has home health from [facility]. He does admit to picking at the scabbing. He has not been consistently putting anything on these areas. He is on Warfarin for history of PE, also has a history of HTN, CKD II, anemia, RAAD, bilateral leg edema and debility. He was evaluated by Dermatology. His biopsy results showed Bullous pemphigoid. Dermatology placed him on steroids oral and cream and started him on Dupixent. Wound culture was obtained on 04/02/23 of his left leg ulcer which was positive for Staphylococcus aureus, Corynebacterium striatum and Anaerobic cocci. He was started on Augmentin. Today he denies fever, chills, nausea, vomiting. Progress of Wound: Right anterior shoulder ulcer, upper mid chest and left chest ulcers are much im proved and almost healed. Dermatology have him applying a steroid cream to them. The ulcers he has on his legs bilaterally are becoming more superficial. His edema is much improved wearing the tubigrip 2 layer wraps. Objective Data Objective Data Vital Signs: Vital Signs Temp Pulse Resp BP O2 Del Method 97.4 F L 68 18 171/66 H Room Air 05/14/23 09:45 05/14/23 09:45 05/14/23 09:45 05/14/23 09:45 05/14/23 09:45 Oxygen Delivery Method Room Air Weight: 300 lb Body Mass Index (BMI) 40.6 Charges/Coding Visit Charges Office Visits / Consults: 23493 OV L3 Est Physical Exam Const alert, oriented x3 and no apparent distress General Appearance: cooperative and comfortable Orientation / Consciousness: awake HEENT normocephalic Head and Scalp: atraumatic Eyes General Eye: normal appearance of both eyes Neck full ROM Resp normal respiratory effort, normal air movement and clear to auscultation bilaterally Effort and Inspection: able to speak in complete sentences Cardio regular rate and regular rhythm Peripheral Pulses: dorsalis pedis pulses present GI normal to inspection, nondistended, normoactive bowel sounds, soft to palpation and non-tender Back/Spine normal ROM Extremity normal capillary refill Skin Skin Narrative: Scabbing is decreasing as the sores on chest, abdomen and legs start to heal. Wound Narrative: Right anterior shoulder ulcer and upper mid to left chest cluster ulcers are smaller and almost healed. Bilateral legs ulcers are superficial with pink wound beds. Neuro oriented x3 and moves all extremities Psych mental status grossly normal and thought process normal Appearance: appropriate Debridement Note Debridement Note No debridement was completed: No debridement was completed today Post-Debridement Measurements and Additional Note: Post-Debridement Measurements/Treatment - Nurse 1 - General Ulcer Assessment Start: 04/30/23 09:50 Freq: Status: Active Protocol: DORY Activity Type Activity Date Activity User E-sign Co-sign Detail Recorded Client Recorded Date Recorded By Document 04/30/23 09:50 [facility] [id number] 04/30/23 10:00 [facility] Document 05/14/23 09:45 [facility] [id number] 05/14/23 09:58 [facility] 04/30/23 05/14/23 09:50 09:45 - Today's Visit Information Type of service Follow-up Visit Follow-up Visit (Physician/HEALTHCARE CONSULTANT (Physician/HEALTHCARE CONSULTANT ) ) Arrival Mode Ambulatory Ambulatory,Cane Transfer Assistance None None Accompanied by daughter [place] Patient Identification Verified (Name & Yes Yes ) Patient Requires Transmission-Based No No Precautions Height and Weight Body Mass Index (BMI) 40.6 40.6 BMI Classification Obese Obese Vital Signs Temperature (97.8 F-99.1 F) 98.6 F 97.4 F L Temperature Source Temporal Temporal Pulse Rate (60-100) 71 68 Pulse Location Monitor Monitor Respiratory Rate (12-18) 16 18 Respiratory rate source Observation Observation Oxygen Delivery Method Room Air Room Air Blood Pressure (90/60-120/80) 116/59 L 171/66 H Blood Pressure Mean (mm Hg) 78 101 Source Monitor Monitor Position Sitting Sitting Blood Pressure Location Left Arm Left Arm History Since Last Visit- (Skip if this is Patient's initial visit) Have you changed medications since your No No last visit? Any new allergies or adverse reactions No No Had a fall/change in ADL's that may No No increase risk of falls Signs or symptoms of abuse and/or No No neglect since last visit Have you been in the hospital since your No No last visit? Has dressing in place as prescribed Yes Yes Has compression in place as prescribed Yes Yes Has offloadiing in place as prescribed N/A N/A Experienced any changes in pain level or No No management Left Footwear Diabetic Shoe Diabetic Shoe Right Footwear Diabetic Shoe Diabetic Shoe Pain Scale: 0-10 Numeric Is Patient Pain Free? Yes Yes WC - Nurse 1 - General Ulcer Measurement Start: 04/30/23 09:50 Freq: Status: Active Protocol: Activity Type Activity Date Activity User E-sign Co-sign Detail Recorded Client Recorded Date Recorded By Document 04/30/23 09:50 BM [id number] 04/30/23 10:00 BMF Document 05/14/23 09:45 BMF [id number] 05/14/23 09:58 BMF 04/30/23 05/14/23 09:50 09:45 Wound Center Nurse 1 #17- CHEST CLUSTER -Combined with other wound No No -Current Size (cm) - Length 3 0.1 -Current Size (cm) - Width 1.5 0.1 -Current Size (cm) - Depth 0.1 0.1 -Total Square Cm 4.5 0.01 -Date of Last Picture (Recall this 04/30/23 field) -Photo Taken Yes No -Epithelialization Small 1-33% -Tunneling No -Undermining/Tunneling No -Circular Undermining No -Exudate Amt Medium -Exudate Type Serosanguineous -Wound Margin Distinct, Outline Attached -Granulation Amt Small (1-33%) -Granulation Quality Red -Slough/Fibrin Yes -Necrosis Amt Large (67-100%) -Necrotic Tissue Type Eschar -Texture (Uyen-wound Skin Appearance) Assessed, Scarring -Moisture (Uyen-wound Skin Appearance) Assessed -Color (Uyen-wound Skin Appearance) Assessed -Temperature (Uyen-wound Skin No Abnormality Appearance) (Pt Warm) -Tenderness on Palpation (Uyen-wound No Skin Appearance) -Ulcer Cleansing Soap and Water -Foul Odor after Cleansing No -Anesthetic Used 5% Lidocaine Gel 14.RLE HARTMAN cluster -Combined with other wound No -Current Size (cm) - Length 0.1 -Current Size (cm) - Width 0.1 -Current Size (cm) - Depth 0.1 -Total Square Cm 0.01 -Date of Last Picture (Recall this 04/30/23 field) -Photo Taken Yes -Epithelialization Large 67-100% -Tunneling No -Undermining/Tunneling No -Circular Undermining No #18- R LAT UPPER LEG CLUSTER -Combined with other wound No No -Current Size (cm) - Length 4 3.5 -Current Size (cm) - Width 4.5 7.8 -Current Size (cm) - Depth 0.1 0.1 -Total Square Cm 18.0 27.30 -Date of Last Picture (Recall this 04/30/23 field) -Photo Taken Yes No -Epithelialization Small 1-33% Small 1-33% -Tunneling No No -Undermining/Tunneling No No -Circular Undermining No No -Exudate Amt Medium Medium -Exudate Type Serosanguineous Serosanguineous -Wound Margin Distinct, Flat & Intact Outline Attached -Granulation Amt Medium (34-66%) Large (67-100%) -Granulation Quality Red Red -Slough/Fibrin Yes Yes -Necrosis Amt Medium (34-66%) Small (1-33%) -Necrotic Tissue Type Eschar Eschar -Texture (Uyen-wound Skin Appearance) Assessed, Assessed, Scarring Scarring -Moisture (Uyen-wound Skin Appearance) Assessed,Dry/ Assessed,Dry/ Scaly Scaly -Color (Uyen-wound Skin Appearance) Assessed Assessed -Temperature (Uyen-wound Skin No Abnormality No Abnormality Appearance) (Pt Warm) (Pt Warm) -Tenderness on Palpation (Uyen-wound No No Skin Appearance) -Ulcer Cleansing Soap and Water Soap and Water -Foul Odor after Cleansing No No -Anesthetic Used 4% Lidocaine 5% Lidocaine Solution Gel #16 L Upper LAT Hartman CLUSTER -Combined with other wound No No -Current Size (cm) - Length 7.6 10 -Current Size (cm) - Width 9 6.3 -Current Size (cm) - Depth 0.1 0.1 -Total Square Cm 68.4 63.0 -Date of Last Picture (Recall this 04/30/23 field) -Photo Taken Yes No -Epithelialization Small 1-33% None Present -Tunneling No No -Undermining/Tunneling No No -Circular Undermining No No -Exudate Amt Medium Medium -Exudate Type Serosanguineous Serosanguineous -Wound Margin Distinct, Flat & Intact Outline Attached -Granulation Amt Large (67-100%) Large (67-100%) -Granulation Quality Red Red -Slough/Fibrin Yes Yes -Necrosis Amt Small (1-33%) Small (1-33%) -Necrotic Tissue Type Adherent Slough Eschar -Texture (Uyen-wound Skin Appearance) Assessed, Assessed, Scarring Scarring -Moisture (Uyen-wound Skin Appearance) Assessed Assessed -Color (Uyen-wound Skin Appearance) Assessed Assessed -Temperature (Uyen-wound Skin No Abnormality No Abnormality Appearance) (Pt Warm) (Pt Warm) -Tenderness on Palpation (Uyen-wound No No Skin Appearance) -Ulcer Cleansing Soap and Water Soap and Water -Foul Odor after Cleansing No No -Anesthetic Used 4% Lidocaine 5% Lidocaine Solution Gel 13. 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 -Combined with other wound No No -Current Size (cm) - Length 4.5 0.5 -Current Size (cm) - Width 3 2.5 -Current Size (cm) - Depth 0.1 0.1 -Total Square Cm 13.5 1.25 -Date of Last Picture (Recall this 04/30/23 field) -Photo Taken Yes No -Epithelialization Small 1-33% Small 1-33% -Tunneling No No -Undermining/Tunneling No No -Circular Undermining No No -Exudate Amt Medium Medium -Exudate Type Serosanguineous Serosanguineous -Wound Margin Distinct, Flat & Intact Outline Attached -Granulation Amt Large (67-100%) Large (67-100%) -Granulation Quality Red Red -Slough/Fibrin No Yes -Necrosis Amt None Present (0 Small (1-33%) %) -Necrotic Tissue Type Eschar -Texture (Uyen-wound Skin Appearance) Assessed, Assessed, Scarring Scarring -Moisture (Uyen-wound Skin Appearance) Assessed Assessed,Dry/ Scaly -Color (Uyen-wound Skin Appearance) Assessed Assessed -Temperature (Uyen-wound Skin No Abnormality No Abnormality Appearance) (Pt Warm) (Pt Warm) -Tenderness on Palpation (Uyen-wound No No Skin Appearance) -Ulcer Cleansing Soap and Water Soap and Water -Foul Odor after Cleansing No No -Anesthetic Used 4% Lidocaine 5% Lidocaine Solution Gel Lower Limb Edema Present Yes Yes Right Calf (cm) 50 52.5 Right Ankle (cm) 28.5 26.2 Left Calf (cm) 49.5 53.6 Left Ankle (cm) 30.5 28.5 WC - Nurse 2 - General Ulcer CM Notes Start: 04/30/23 09:50 Freq: Status: Active Protocol: Activity Type Activity Date Activity User E-sign Co-sign Detail Recorded Client Recorded Date Recorded By Document 04/30/23 10:13 [id number] 04/30/23 10:19 Document 05/14/23 10:15 [id number] 05/14/23 10:18 04/30/23 05/14/23 10:13 10:15 Wound Center Nurse 2 #17- CHEST CLUSTER -Correct Patient No No -Correct Side, Site, Position No No -Correct Procedure No No -Procedure Performed No No -Wound/Ulcer Outcome Not Healed Healed- Epithelialized 14.RLE HARTMAN cluster -Time 10:15 -Correct Patient No -Correct Side, Site, Position No -Correct Procedure No -Procedure Performed No -Post Debridement (cm) - Length 0 -Post Debridement (cm) - Width 0 -Post Debridement (cm) - Depth 0 -Total Square (Post) (cm) 0 -Area of Debridement (cm) - Length 0 -Area of Debridement (cm) - Width 0 -Total Square (Area) (cm) 0 -Tunneling No -Undermining/Tunneling No -Circular Undermining No -Wound/Ulcer Outcome Healed- Epithelialized -Ulcer Cleansing Rinsed/ Irrigated with Saline -Foul Odor after Cleansing No -Bioengineered Tissue No #18- R LAT UPPER LEG CLUSTER -Time 10:14 -Correct Patient No No -Correct Side, Site, Position No No -Correct Procedure No No -Procedure Performed No No -Post Debridement (cm) - Length 3.5 -Post Debridement (cm) - Width 5.0 -Post Debridement (cm) - Depth 0.1 -Total Square (Post) (cm) 17.50 -Area of Debridement (cm) - Length 3.5 -Area of Debridement (cm) - Width 5.0 -Total Square (Area) (cm) 17.50 -Tunneling No -Undermining/Tunneling No -Circular Undermining No -Wound/Ulcer Outcome Not Healed Not Healed -Ulcer Cleansing Rinsed/ Irrigated with Saline -Foul Odor after Cleansing No -Bioengineered Tissue No -Bleeding Controlled with Pressure -Treatment Response Procedure Tolerated Well -Offloading No -Debridement - Subq, 20sq cm No #16 L Upper LAT Hartman CLUSTER -Time 10:14 -Correct Patient No No -Correct Side, Site, Position No No -Correct Procedure No No -Procedure Performed No No -Post Debridement (cm) - Length 6.8 -Post Debridement (cm) - Width 4.0 -Post Debridement (cm) - Depth 0.1 -Total Square (Post) (cm) 27.20 -Area of Debridement (cm) - Length 6.8 -Area of Debridement (cm) - Width 4.0 -Total Square (Area) (cm) 27.20 -Tunneling No -Undermining/Tunneling No -Circular Undermining No -Wound/Ulcer Outcome Not Healed Not Healed -Ulcer Cleansing Rinsed/ Irrigated with Saline -Foul Odor after Cleansing No -Bioengineered Tissue No -Bleeding Controlled with Pressure -Treatment Response Procedure Tolerated Well -Offloading No -Debridement - Subq, 20sq cm No 13. 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 -Correct Patient No No -Correct Side, Site, Position No No -Correct Procedure No No -Procedure Performed No No -Post Debridement (cm) - Length 3.5 -Post Debridement (cm) - Width 3.0 -Post Debridement (cm) - Depth 0.1 -Total Square (Post) (cm) 10.50 -Area of Debridement (cm) - Length 3.5 -Area of Debridement (cm) - Width 3.0 -Total Square (Area) (cm) 10.50 -Wound/Ulcer Outcome Not Healed Not Healed -Debridement - Subq, 20sq cm No Pain Scale: 0-10 Numeric Is Patient Pain Free? Yes Yes WC - Nurse 3 - General Ulcer D/C NN Start: 04/30/23 09:50 Freq: Status: Active Protocol: Activity Type Activity Date Activity User E-sign Co-sign Detail Recorded Client Recorded Date Recorded By Document 04/30/23 10:21 JAYESH [id number] 04/30/23 10:29 JAYESH Document 05/14/23 10:35 JAYESH [id number] 05/14/23 10:36 JAYESH 04/30/23 05/14/23 10:21 10:35 Wound Care Center Nurse 3 #17- CHEST CLUSTER -Ulcer Cleansing Rinsed/ Irrigated with Saline -Foul Odor after Cleansing No -Primary Dressing Applied Aquacel AG 4x4, NonAdherent Contact Layer -Primary Dressing Covered/Secured with Dry Gauze & Roll Gauze -Aquacel AG 4x4 0 #18- R LAT UPPER LEG CLUSTER -Ulcer Cleansing Rinsed/ Rinsed/ Irrigated with Irrigated with Saline Saline -Foul Odor after Cleansing No No -Primary Dressing Applied Aquacel AG 4x4, NonAdherent NonAdherent Contact Layer Contact Layer -Primary Dressing Covered/Secured with Dry Gauze & Dry Gauze & Roll Gauze, Roll Gauze Secured with Tape -Aquacel AG 4x4 1 #16 L Upper LAT Hartman CLUSTER -Ulcer Cleansing Rinsed/ Rinsed/ Irrigated with Irrigated with Saline Saline -Foul Odor after Cleansing No No -Primary Dressing Applied Aquacel AG 4x4, NonAdherent NonAdherent Contact Layer Contact Layer -Primary Dressing Covered/Secured with Dry Gauze,Dry Dry Gauze & Gauze & Roll Roll Gauze, Gauze,Secured Secured with with Tape Tape -Aquacel AG 4x4 0 13. 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 -Ulcer Cleansing Rinsed/ Rinsed/ Irrigated with Irrigated with Saline Saline -Foul Odor after Cleansing No No -Primary Dressing Applied Aquacel AG 4x4, NonAdherent NonAdherent Contact Layer Contact Layer -Primary Dressing Covered/Secured with Dry Gauze & Roll Gauze, Secured with Tape -Aquacel AG 4x4 0 Right -Tubular Bandage Double Layer Double Layer -Size of Tubigrip Used Size E Size E -Size E ($) 2 2 Left -Tubular Bandage Double Layer Double Layer -Size of Tubigrip Used Size E Size E -Size E ($) 2 2 Pain Scale: 0-10 Numeric Is Patient Pain Free? Yes Yes WC - Visit Discharge Discharge Condition Stable Stable Ambulatory Status Ambulatory Ambulatory,Cane Transportation Private Auto Private Auto Accompanied by daughter DAUGHTER Medication Reconcilliation completed & Yes provided to patient/care provider Clinical Summary of Care Provided Yes Assessment/Plan Assessment/Plan (1) Ulcer of chest wall, limited to breakdown of skin: CODE(S): L98.491 - Non-pressure chronic ulcer of skin of other sites limited to breakdown of skin (2) Ulcer of left lower extremity, limited to breakdown of skin: CODE(S): L97.921 - Non-pressure chronic ulcer of unspecified part of left lower leg limited to breakdown of skin (3) Ulcer of right lower extremity, limited to breakdown of skin: CODE(S): L97.911 - Non-pressure chronic ulcer of unspecified part of right lower leg limited to breakdown of skin (4) Age-related physical debility: CODE(S): R54 - Age-related physical debility (5) Edema of both legs: CODE(S): R60.0 - Localized edema PLAN: Plan Patient evaluated at the wound healing center today. Wound care to the all of the ulcers will be adaptic covered with gauze daily after washing the ulcers with soap and water. Compression - Tubigrip topped with circaid compression bilateral legs. Wound culture obtained of left leg ulcer on 04/02/23 which was positive for Staphylococcus aureus, Corynebacterium striatum and Anaerobic cocci, he completed the Augmentin. He just had his INR rechecked today since completing his antibiotics. A wound culture was obtained on 11/14/22 of the upper chest/anterior shoulder ulc ers which was positive for Staphylococcus aureus, Kocuria kristinae and Gram positive faraz. He has completed the Doxycycline. He has [facility] to help with the wound care. Stressed importance of not picking at these ulcers. Keep legs elevated when sitting. Encouraged to sleep in a bed, but he has slept in a recliner for 30 years. He continues to see Dermatology. His biopsy results showed Bullous pemphigoid. Dermatology placed him on steroids oral and cream and started him on Dupixent. Follow up 4 weeks. Call or come in sooner if develop any concerns. Go to ED of have worsening symptoms.
== END 2023-05-28 23:59 | disposition home or self-care (01) ==
LOC: WC 09:45
PROVIDERS: PCP Nurse Practitioner Family; Referring Provider Nurse Practitioner Family; Visit Provider Nurse Practitioner Family
DX: L97.921 Non-pressure chronic ulcer of unspecified part of left lower leg limited to breakdown of skin (principal); L98.491 Non-pressure chronic ulcer of skin of other sites limited to breakdown of skin; L97.911 Non-pressure chronic ulcer of unspecified part of right lower leg limited to breakdown of skin; R60.0 Localized edema; R54 Age-related physical debility; G47.33 Obstructive sleep apnea (adult) (pediatric); N18.2 Chronic kidney disease, stage 2 (mild); I12.9 Hypertensive chronic kidney disease with stage 1 through stage 4 chronic kidney disease, or unspecified chronic kidney disease
CPT/HCPCS: 99214; G0463

== ENCOUNTER 2023-06-11 10:03 | Outpatient (RCR) | payer MEDICARE, MEDICAID, SELFPAY ==
[2023-05-29 00:31] VITALS: BP 171/66; PULSE 68; RESP 18; TEMP 36.3; BMI 40.6
[2023-06-11 10:12] VITALS: BP 120/82; PULSE 71; RESP 18; TEMP 36.9; BMI 40.6
--- NOTE | 2023-06-11 12:34 | PN.PCM_ITS ---
History of Present Illness Date of Service: 06/11/23 Chief Complaint: Superficial ulcers to bilateral lower legs History of Wound: Patient is a 78 year old male who has multiple skin lesions scattered over his chest, arms, hands and abdomen and legs. The initial skin lesions started from a bed bugs which were causing him to scratch. He was hospitalized at the end of August for sepsis and cellulitis. He was discharged to [facility]. He has since been discharged home and has home health from [facility]. He does admit to picking at the scabbing. He has not been consistently putting anything on these areas. He is on Warfarin for history of PE, also has a history of HTN, CKD II, anemia, RAAD, bilateral leg edema and debility. He was evaluated by Dermatology. His biopsy results showed Bullous pemphigoid. Dermatology placed him on steroids oral and cream and started him on Dupixent. Wound culture was obtained on 04/02/23 of his left leg ulcer which was positive for Staphylococcus aureus, Corynebacterium striatum and Anaerobic cocci. He was started on Augmentin. Today he denies fever, chills, nausea, vomiting. Progress of Wound: Right anterior shoulder ulcer, upper mid chest and left chest ulcers are healed. He has been seeing Dermatology for treatment with Dupixent to help with his Bullous pemphigoid. The ulcers he has on his legs bilaterally are becoming more superficial. He continues to have break out of blisters on his legs and arms but it is starting to slow down. His edema is much improved wearing the double tubigrips and Farrow wraps. Objective Data Objective Data Vital Signs: Vital Signs Temp Pulse Resp BP 98.5 F 71 18 120/82 H 06/11/23 10:12 06/11/23 10:12 06/11/23 10:12 06/11/23 10:12 Weight: 300 lb Body Mass Index (BMI) 40.6 Charges/Coding Addendum Addendum: Selective debridement 68104 and 48651 x 5 Debridement Note Debridement Note Wound debrided: leg cluster ulcers Laterality: Left Type of Debridement: Selective debridement Anesthesia Used: 5% Lidocaine Gel Depth: Down to and including healthy tissue and in the subcutaneous layer Percentage of wound debrided: 100 Tissue Removed: Non viable tissue/scabbing Severity: Limited To Skin Breakdown Amount of bleeding with debridement: Mild Bleeding Controlled with: Pressure Patient tolerated procedure: Patient tolerated procedure well Debridement Free Text: Selective debridement with moistened gauze to remove dried scabbing surrounding the blisters/wounds No debridement was completed: No debridement was completed today Post-Debridement Measurements and Additional Note: Post-Debridement Measurements/Treatment - Nurse 1 - General Ulcer Assessment Start: 06/11/23 10:12 Freq: Status: Active Protocol: DORY Activity Type Activity Date Activity User E-sign Co-sign Detail Recorded Client Recorded Date Recorded By Document 06/11/23 10:12 PL [id number] 06/11/23 10:13 PL 06/11/23 10:12 - Today's Visit Information Type of service Follow-up Visit (Physician/UNDERCOVER COP ) Arrival Mode Ambulatory,Cane Transfer Assistance None Patient Identification Verified (Name & Yes ) Patient Requires Transmission-Based No Precautions Safety Precautions NA Height and Weight Body Mass Index (BMI) 40.6 BMI Classification Obese Vital Signs Temperature (97.8 F-99.1 F) 98.5 F Temperature Source Temporal Pulse Rate (60-100) 71 Respiratory Rate (12-18) 18 Blood Pressure (90/60-120/80) 120/82 H Blood Pressure Mean (mm Hg) 94 History Since Last Visit- (Skip if this is Patient's initial visit) Have you changed medications since your No last visit? Any new allergies or adverse reactions No Had a fall/change in ADL's that may No increase risk of falls Signs or symptoms of abuse and/or No neglect since last visit Have you been in the hospital since your No last visit? Has dressing in place as prescribed Yes Has compression in place as prescribed Yes Has offloadiing in place as prescribed N/A Experienced any changes in pain level or No management Pain Scale: 0-10 Numeric Is Patient Pain Free? Yes - Nurse 2 - General Ulcer CM Notes Start: 06/11/23 10:12 Freq: Status: Active Protocol: Activity Type Activity Date Activity User E-sign Co-sign Detail Recorded Client Recorded Date Recorded By Document 06/11/23 10:49 JAYESH [id number] 06/11/23 10:55 JAYESH 06/11/23 10:49 Wound Center Nurse 2 #18- R LEG CLUSTER -Time 10:52 -Correct Patient Yes -Correct Side, Site, Position Yes -Correct Procedure Yes -Procedure Performed Yes -Type of Procedure Debridement -Clinical Debridement Epidermis / Dermis -Tissue Removed Epidermis, Dermis -Post Debridement (cm) - Length 4.0 -Post Debridement (cm) - Width 5.5 -Post Debridement (cm) - Depth 0.1 -Total Square (Post) (cm) 22.00 -Area of Debridement (cm) - Length 4.0 -Area of Debridement (cm) - Width 5.5 -Total Square (Area) (cm) 22.00 -Tunneling No -Undermining/Tunneling No -Circular Undermining No -Wound/Ulcer Outcome Not Healed -Ulcer Cleansing Rinsed/ Irrigated with Saline -Foul Odor after Cleansing No -Bioengineered Tissue No -Bleeding Controlled with Pressure -Treatment Response Procedure Tolerated Well -Offloading No -Debridement - Open, 1st 20sq cm No #16 L Upper LAT Hartman CLUSTER -Time 10:53 -Correct Patient Yes -Correct Side, Site, Position Yes -Correct Procedure Yes -Procedure Performed Yes -Type of Procedure Debridement -Clinical Debridement Epidermis / Dermis -Tissue Removed Epidermis, Dermis -Post Debridement (cm) - Length 9.0 -Post Debridement (cm) - Width 9.0 -Post Debridement (cm) - Depth 0.1 -Total Square (Post) (cm) 81.00 -Area of Debridement (cm) - Length 9.0 -Area of Debridement (cm) - Width 9.0 -Total Square (Area) (cm) 81.00 -Tunneling No -Undermining/Tunneling No -Circular Undermining No -Wound/Ulcer Outcome Not Healed -Ulcer Cleansing Rinsed/ Irrigated with Saline -Foul Odor after Cleansing No -Bioengineered Tissue No -Bleeding Controlled with Pressure -Treatment Response Procedure Tolerated Well -Offloading No -Debridement - Open, 1st 20sq cm Yes Pain Scale: 0-10 Numeric Is Patient Pain Free? Yes WC - Nurse 3 - General Ulcer D/C NN Start: 06/11/23 10:12 Freq: Status: Active Protocol: Activity Type Activity Date Activity User E-sign Co-sign Detail Recorded Client Recorded Date Recorded By Document 06/11/23 11:17 PL [id number] 06/11/23 11:19 PL 06/11/23 11:17 Wound Care Center Nurse 3 #18- R LEG CLUSTER -Ulcer Cleansing Rinsed/ Irrigated with Saline -Foul Odor after Cleansing No -Other Dressing Adaptic,ABD -Primary Dressing Covered/Secured with Dry Gauze & Roll Gauze, Secured with Tape #16 L Upper LAT Hartman CLUSTER -Ulcer Cleansing Rinsed/ Irrigated with Saline -Foul Odor after Cleansing No -Primary Dressing Applied Aquacel AG 4x4 -Other Dressing Adaptic,ABD -Primary Dressing Covered/Secured with Dry Gauze & Roll Gauze, Secured with Tape -Aquacel AG 4x4 1 Bilateral -Tubular Bandage Double Layer -Size of Tubigrip Used Size E -Size E ($) 4 Pain Scale: 0-10 Numeric Is Patient Pain Free? 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 Wound care to the all of the ulcers will be adaptic covered with Aquacel-Ag covered with gauze daily after washing the ulcers with soap and water. Compression - Tubigrip topped with Farrow wraps bilateral legs. Wound culture obtained of left leg ulcer on 04/02/23 which was positive for Staphylococcus aureus, Corynebacterium striatum and Anaerobic cocci, he completed the Augmentin. A wound culture was obtained on 11/14/22 of the upper chest/anterior shoulder ulcers which was positive for Staphylococcus aureus, Kocuria kristinae and Gram positive faraz. He has completed the Doxycycline. He has [facility] to help with the wound care. Stressed importance of not picking at these ulcers. Keep legs elevated when sitting. Encouraged to sleep in a bed, but he has slept in a recliner for 30 years. He continues to see Dermatology. His biopsy results showed Bullous pemphigoid. Dermatology placed him on steroids oral and cream and started him on Dupixent. Follow up 4 weeks. Call or come in sooner if develop any concerns. Go to ED of have worsening symptoms.
== END 2023-06-28 23:59 | disposition home or self-care (01) ==
LOC: WC 10:03
PROVIDERS: PCP Nurse Practitioner Family; Referring Provider Nurse Practitioner Family; Visit Provider Nurse Practitioner Family
DX: L97.921 Non-pressure chronic ulcer of unspecified part of left lower leg limited to breakdown of skin (principal); L97.911 Non-pressure chronic ulcer of unspecified part of right lower leg limited to breakdown of skin; I10 Essential (primary) hypertension; R60.0 Localized edema; R54 Age-related physical debility; L12.0 Bullous pemphigoid
CPT/HCPCS: 97597; 97598

== ENCOUNTER 2023-07-09 09:02 | Outpatient (RCR) | payer MEDICARE, MEDICAID, SELFPAY ==
[2023-06-29 00:15] VITALS: BP 120/82; PULSE 71; RESP 18; TEMP 36.9; BMI 40.6
[2023-07-09 09:22] VITALS: BP 136/75; PULSE 61; RESP 18; TEMP 36.1; BMI 40.6
--- NOTE | 2023-07-09 10:17 | PCM.WC.PN ---
History of Present Illness Date of Service: 07/09/23 Chief Complaint: Superficial ulcers to bilateral lower legs History of Wound: Patient is a 78 year old male who has multiple skin lesions scattered over his chest, arms, hands and abdomen and legs. The initial skin lesions started from a bed bugs which were causing him to scratch. He was hospitalized at the end of August for sepsis and cellulitis. He was discharged to [facility]. He has since been discharged home and has home health from [facility]. He does admit to picking at the scabbing. He has not been consistently putting anything on these areas. He is on Warfarin for history of PE, also has a history of HTN, CKD II, anemia, RAAD, bilateral leg edema and debility. He was evaluated by Dermatology. His biopsy results showed Bullous pemphigoid. Dermatology placed him on steroids oral and cream and started him on Dupixent. Wound culture was obtained on 04/02/23 of his left leg ulcer which was positive for Staphylococcus aureus, Corynebacterium striatum and Anaerobic cocci. He was started on Augmentin. Today he denies fever, chills, nausea, vomiting. Progress of Wound: He has been seeing Dermatology for treatment with Dupixent to help with his Bullous pemphigoid. The ulcers on his left leg are healed. He has a cluster of ulcers on his right lower leg. He continues to have break out of blisters on his legs and arms but it is starting to slow down. His edema is much improved wearing the double tubigrips and Farrow wraps. Objective Data Objective Data Vital Signs: Vital Signs Temp Pulse Resp BP 97 F L 61 18 136/75 H 07/09/23 09:22 07/09/23 09:22 07/09/23 09:22 07/09/23 09:22 Weight: 300 lb Body Mass Index (BMI) 40.6 Charges/Coding Addendum Addendum: Selective debridement 64241 Debridement Note Debridement Note Wound debrided: leg cluster ulcers Laterality: Right Type of Debridement: Selective debridement Anesthesia Used: 5% Lidocaine Gel Depth: Down to and including healthy tissue and in the subcutaneous layer Percentage of wound debrided: 100 Tissue Removed: Non viable tissue/scabbing Severity: Limited To Skin Breakdown Amount of bleeding with debridement: Mild Bleeding Controlled with: Pressure Patient tolerated procedure: Patient tolerated procedure well Debridement Free Text: Selective debridement with moistened gauze to remove dried scabbing surrounding the blisters/wounds No debridement was completed: No debridement was completed today Post-Debridement Measurements and Additional Note: Post-Debridement Measurements/Treatment - Nurse 1 - General Ulcer Assessment Start: 07/09/23 09:22 Freq: Status: Active Protocol: DORY Activity Type Activity Date Activity User E-sign Co-sign Detail Recorded Client Recorded Date Recorded By Document 07/09/23 09:22 EM [id number] 07/09/23 09:29 RB 07/09/23 09:22 - Today's Visit Information Type of service Follow-up Visit (Physician/[employer]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 ) Arrival Mode Ambulatory Transfer Assistance None Patient Identification Verified (Name & Yes ) Patient Requires Transmission-Based No Precautions Height and Weight Body Mass Index (BMI) 40.6 BMI Classification Obese Vital Signs Temperature (97.8 F-99.1 F) 97 F L Temperature Source Temporal Pulse Rate (60-100) 61 Pulse Location Monitor Respiratory Rate (12-18) 18 Respiratory rate source Observation Blood Pressure (90/60-120/80) 136/75 H Blood Pressure Mean (mm Hg) 95 Source Monitor Position Semi-Fowlers Blood Pressure Location Left Arm History Since Last Visit- (Skip if this is Patient's initial visit) Have you changed medications since your No last visit? Any new allergies or adverse reactions No Had a fall/change in ADL's that may No increase risk of falls Signs or symptoms of abuse and/or No neglect since last visit Have you been in the hospital since your No last visit? Has dressing in place as prescribed Yes Has compression in place as prescribed Yes Has offloadiing in place as prescribed No Experienced any changes in pain level or No management Pain Scale: 0-10 Numeric Is Patient Pain Free? Yes - Nurse 1 - General Ulcer Measurement Start: 07/09/23 09:22 Freq: Status: Active Protocol: Activity Type Activity Date Activity User E-sign Co-sign Detail Recorded Client Recorded Date Recorded By Document 07/09/23 09:22 RB [id number] 07/09/23 09:29 RB 07/09/23 09:22 Wound Center Nurse 1 #18- R LEG CLUSTER -Combined with other wound No -Current Size (cm) - Length 7 -Current Size (cm) - Width 8 -Current Size (cm) - Depth 0.1 -Total Square Cm 56 -Tunneling No -Undermining/Tunneling No -Circular Undermining No -Exudate Amt Large -Exudate Type Serosanguineous -Wound Margin Distinct, Outline Attached -Granulation Amt Medium (34-66%) -Granulation Quality Columbine -Slough/Fibrin Yes -Necrosis Amt Medium (34-66%) -Necrotic Tissue Type Adherent Slough -Structure Exposed N/A -Texture (Uyen-wound Skin Appearance) Assessed, Excoriation -Moisture (Uyen-wound Skin Appearance) Assessed -Color (Uyen-wound Skin Appearance) Assessed -Temperature (Uyen-wound Skin No Abnormality Appearance) (Pt Warm) -Tenderness on Palpation (Uyen-wound No Skin Appearance) -Ulcer Cleansing Wound Cleanser -Foul Odor after Cleansing No -Anesthetic Used 5% Lidocaine Gel 13. 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 -Combined with other wound No -Current Size (cm) - Length 3 -Current Size (cm) - Width 4.5 -Current Size (cm) - Depth 0.1 -Total Square Cm 13.5 -Tunneling No -Undermining/Tunneling No -Circular Undermining No -Exudate Amt Large -Exudate Type Serosanguineous -Wound Margin Distinct, Outline Attached -Granulation Amt Medium (34-66%) -Granulation Quality [place]ine -Slough/Fibrin Yes -Necrosis Amt Medium (34-66%) -Necrotic Tissue Type Adherent Slough -Structure Exposed N/A -Texture (Uyen-wound Skin Appearance) Assessed, Excoriation -Moisture (Uyen-wound Skin Appearance) Assessed -Color (Uyen-wound Skin Appearance) Assessed -Temperature (Uyen-wound Skin No Abnormality Appearance) (Pt Warm) -Tenderness on Palpation (Uyen-wound No Skin Appearance) -Ulcer Cleansing Wound Cleanser -Foul Odor after Cleansing No -Anesthetic Used 5% Lidocaine Gel Lower Limb Edema Present Yes Right Calf (cm) 54.6 Right Ankle (cm) 26.5 Left Calf (cm) 53.5 Left Ankle (cm) 27 WC - Nurse 2 - General Ulcer CM Notes Start: 07/09/23 09:22 Freq: Status: Active Protocol: Activity Type Activity Date Activity User E-sign Co-sign Detail Recorded Client Recorded Date Recorded By Document 07/09/23 09:36 [id number] 07/09/23 09:40 JF 07/09/23 09:36 Wound Center Nurse 2 #18- R LEG CLUSTER -Time 09:40 -Correct Patient Yes -Correct Side, Site, Position Yes -Correct Procedure Yes -Procedure Performed Yes -Type of Procedure Debridement -Clinical Debridement Epidermis / Dermis -Tissue Removed Epidermis, Dermis -Wound/Ulcer Outcome Not Healed -Debridement - Open, 1st 20sq cm Yes 13. 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 -Correct Patient No -Correct Side, Site, Position No -Correct Procedure No -Procedure Performed No -Wound/Ulcer Outcome Not Healed Pain Scale: 0-10 Numeric Is Patient Pain Free? Yes - Nurse 3 - General Ulcer D/C NN Start: 07/09/23 09:22 Freq: Status: Active Protocol: Activity Type Activity Date Activity User E-sign Co-sign Detail Recorded Client Recorded Date Recorded By Document 07/09/23 09:56 RB [id number] 07/09/23 09:57 RB 07/09/23 09:56 Wound Care Center Nurse 3 #18- R LEG CLUSTER -Ulcer Cleansing Wound Cleanser -Primary Dressing Applied NonAdherent Contact Layer -Primary Dressing Covered/Secured with Dry Gauze & Roll Gauze, Secured with Tape 13. 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 -Ulcer Cleansing Wound Cleanser -Primary Dressing Applied NonAdherent Contact Layer -Primary Dressing Covered/Secured with Dry Gauze & Roll Gauze, Secured with Tape Right -Tubular Bandage Double Layer -Size of Tubigrip Used Size E -Size E ($) 2 Left -Tubular Bandage Double Layer -Size of Tubigrip Used Size E -Size E ($) 2 Treatment Response Procedure Tolerated Well Pain Scale: 0-10 Numeric Is Patient Pain Free? Yes - Visit Discharge Discharge Condition Stable Ambulatory Status Ambulatory,Cane Transportation Private Auto Medication Reconcilliation completed & No provided to patient/care provider Clinical Summary of Care Provided Yes Assessment/Plan Assessment/Plan (1) Ulcer of right lower extremity, limited to breakdown of skin: CODE(S): L97.911 - Non-pressure chronic ulcer of unspecified part of right lower leg limited to breakdown of skin (2) Bullous pemphigoid: CODE(S): L12.0 - Bullous pemphigoid (3) Edema of both legs: CODE(S): R60.0 - Localized edema (4) Age-related physical debility: CODE(S): R54 - Age-related physical debility PLAN: Plan Patient evaluated at the wound healing center today. He is having less break out of ulcers and the ulcers that he has are starting to heal. Left leg ulcer cluster is healed. Wound care to the right leg ulcer cluster will be adaptic covered with gauze daily after washing the ulcers with soap and water. Compression - Double Tubigrip or Farrow wraps bilateral legs. Wound culture obtained of left leg ulcer on 04/02/23 which was positive for Staphylococcus aureus, Corynebacterium striatum and Anaerobic cocci, he completed the Augmentin. A wound culture was obtained on 11/14/22 of the upper chest/anterior shoulder ulcers which was positive for Staphylococcus aureus, Kocuria kristinae and Gram positive faraz. He has completed the Doxycycline. Keep legs elevated when sitting. Encouraged to sleep in a bed, but he has slept in a recliner for 30 years. He continues to see Dermatology. His biopsy results showed Bullous pemphigoid. Dermatology placed him on steroids oral and cream and started him on Dupixent. Follow up 4 weeks. Call or come in sooner if develop any concerns.
== END 2023-07-28 23:59 | disposition home or self-care (01) ==
LOC: WC 09:02
PROVIDERS: PCP Nurse Practitioner Family; Referring Provider Nurse Practitioner Family; Visit Provider Nurse Practitioner Family
DX: L97.911 Non-pressure chronic ulcer of unspecified part of right lower leg limited to breakdown of skin (principal); L97.921 Non-pressure chronic ulcer of unspecified part of left lower leg limited to breakdown of skin; L12.0 Bullous pemphigoid; R60.0 Localized edema; R54 Age-related physical debility; I12.9 Hypertensive chronic kidney disease with stage 1 through stage 4 chronic kidney disease, or unspecified chronic kidney disease; N18.2 Chronic kidney disease, stage 2 (mild); G47.33 Obstructive sleep apnea (adult) (pediatric); Z79.01 Long term (current) use of anticoagulants; Z86.711 Personal history of pulmonary embolism
CPT/HCPCS: 97597; 99214; G0463

== ENCOUNTER 2023-08-06 09:07 | Outpatient (RCR) | payer MEDICARE, MEDICAID, SELFPAY ==
[2023-07-29 00:36] VITALS: BP 136/75; PULSE 61; RESP 18; TEMP 36.1; BMI 40.6
[2023-08-06 09:12] VITALS: BP 139/72; PULSE 66; RESP 20; TEMP 36.4; BMI 40.6
--- NOTE | 2023-08-06 09:37 | PN.PCM_ITS ---
History of Present Illness Date of Service: 08/06/23 Chief Complaint: Superficial ulcers to bilateral lower legs History of Wound: Patient is a 78 year old male who has multiple skin lesions scattered over his chest, arms, hands and abdomen and legs. The initial skin lesions started from a bed bugs which were causing him to scratch. He was hospitalized at the end of August for sepsis and cellulitis. He was discharged to [facility]. He has since been discharged home and has home health from [facility] [place]. He does admit to picking at the scabbing. He has not been consistently putting anything on these areas. He is on Warfarin for history of PE, also has a history of HTN, CKD II, anemia, RAAD, bilateral leg edema and debility. He was evaluated by Dermatology. His biopsy results showed Bullous pemphigoid. Dermatology placed him on steroids oral and cream and started him on Dupixent. Wound culture was obtained on 04/02/23 of his left leg ulcer which was positive for Staphylococcus aureus, Corynebacterium striatum and Anaerobic cocci. He was started on Augmentin. Today he denies fever, chills, nausea, vomiting. Progress of Wound: He has been seeing Dermatology for treatment with Dupixent to help with his Bull ous pemphigoid. The ulcers on his right leg are healed. He has a cluster of ulcers on his left posterior leg and a large one on his . He continues to have break out of blisters on his legs and arms but it is starting to slow down. His edema is much improved wearing the double tubigrips and Farrow wraps. Objective Data Objective Data Vital Signs: Vital Signs Temp Pulse Resp BP 97.6 F L 66 20 H 139/72 H 08/06/23 09:12 08/06/23 09:12 08/06/23 09:12 08/06/23 09:12 Weight: 300 lb Body Mass Index (BMI) 40.6 Charges/Coding Addendum Addendum: Selective debridement [id number] x2 Debridement Note Debridement Note Wound debrided: leg cluster ulcers Laterality: Left Type of Debridement: Selective debridement Anesthesia Used: 5% Lidocaine Gel Depth: Down to and including healthy tissue and in the subcutaneous layer Percentage of wound debrided: 100 Tissue Removed: Non viable tissue/scabbing Severity: Limited To Skin Breakdown Amount of bleeding with debridement: Mild Bleeding Controlled with: Pressure Patient tolerated procedure: Patient tolerated procedure well Debridement Free Text: Selective debridement with moistened gauze to remove dried scabbing surrounding the blisters/wounds Post-Debridement Measurements and Additional Note: Post-Debridement Measurements/Treatment SIMON - Nurse 1 - General Ulcer Assessment Start: 08/06/23 09:12 Freq: Status: Active Protocol: DORY Activity Type Activity Date Activity User E-sign Co-sign Detail Recorded Client Recorded Date Recorded By Document 08/06/23 09:12 DL Desktop 08/06/23 09:23 DL 08/06/23 09:12 WC - Today's Visit Information Type of service Follow-up Visit (Physician/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 SPECIALIST ) Arrival Mode Ambulatory Transfer Assistance None Patient Identification Verified (Name & Yes ) Patient Requires Transmission-Based No Precautions Height and Weight Body Mass Index (BMI) 40.6 BMI Classification Obese Vital Signs Temperature (97.8 F-99.1 F) 97.6 F L Temperature Source Temporal Pulse Rate (60-100) 66 Pulse Location Monitor Respiratory Rate (12-18) 20 H Respiratory rate source Observation Blood Pressure (90/60-120/80) 139/72 H Blood Pressure Mean (mm Hg) 94 Source Monitor Blood Pressure Location Left Arm History Since Last Visit- (Skip if this is Patient's initial visit) Have you changed medications since your No last visit? Any new allergies or adverse reactions No Had a fall/change in ADL's that may No increase risk of falls Signs or symptoms of abuse and/or No neglect since last visit Have you been in the hospital since your No last visit? Has dressing in place as prescribed Yes Has compression in place as prescribed Yes Has offloadiing in place as prescribed N/A Experienced any changes in pain level or No management Pain Scale: 0-10 Numeric Is Patient Pain Free? Yes SIMON - Nurse 1 - General Ulcer Measurement Start: 08/06/23 09:12 Freq: Status: Active Protocol: Activity Type Activity Date Activity User E-sign Co-sign Detail Recorded Client Recorded Date Recorded By Document 08/06/23 09:12 [facility] 08/06/23 09:23 DL 08/06/23 09:12 Wound Center Nurse 1 #19 L Lat LE -Current Size (cm) - Length 7.5 -Current Size (cm) - Width 3.5 -Current Size (cm) - Depth 0.1 -Total Square Cm 26.25 -Photo Taken Yes -Exudate Amt Medium -Exudate Type Serosanguineous -Wound Margin Distinct, Outline Attached -Granulation Amt Large (67-100%) -Granulation Quality Red -Necrosis Amt None Present (0 %) -Structure Exposed N/A -Texture (Uyen-wound Skin Appearance) Scarring -Moisture (Uyen-wound Skin Appearance) Dry/Scaly -Color (Uyen-wound Skin Appearance) Hemosiderin Staining -Temperature (Uyen-wound Skin No Abnormality Appearance) (Pt Warm) -Tenderness on Palpation (Uyen-wound No Skin Appearance) -Anesthetic Used 4% Lidocaine Solution #18- R LEG CLUSTER -Current Size (cm) - Length 0 -Current Size (cm) - Width 0 -Current Size (cm) - Depth 0 -Total Square Cm 0 -Photo Taken Yes -Exudate Amt None Present -Wound Margin Indistinct, Non -Visible -Granulation Amt Large (67-100%) -Granulation Quality [employer] -Necrosis Amt None Present (0 %) -Structure Exposed N/A -Texture (Uyen-wound Skin Appearance) Scarring -Moisture (Uyen-wound Skin Appearance) Dry/Scaly -Color (Uyen-wound Skin Appearance) Hemosiderin Staining -Temperature (Uyen-wound Skin No Abnormality Appearance) (Pt Warm) -Tenderness on Palpation (Uyen-wound No Skin Appearance) -Ulcer Cleansing Soap and Water -Foul Odor after Cleansing Yes, Due to Product Use 13. 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 -Current Size (cm) - Length 5.6 -Current Size (cm) - Width 4.5 -Current Size (cm) - Depth 0.1 -Total Square Cm 25.20 -Exudate Amt Medium -Exudate Type Serosanguineous -Wound Margin Distinct, Outline Attached -Granulation Amt Medium (34-66%) -Granulation Quality Red -Necrosis Amt None Present (0 %) -Structure Exposed N/A -Texture (Uyen-wound Skin Appearance) Scarring -Moisture (Uyen-wound Skin Appearance) Weeping -Color (Uyen-wound Skin Appearance) Hemosiderin Staining -Temperature (Uyen-wound Skin No Abnormality Appearance) (Pt Warm) -Tenderness on Palpation (Uyen-wound No Skin Appearance) -Ulcer Cleansing Soap and Water -Foul Odor after Cleansing No -Anesthetic Used 4% Lidocaine Solution Right Calf (cm) 45 Right Ankle (cm) 27.5 Left Calf (cm) 48 Left Ankle (cm) 27 Assessment/Plan Assessment/Plan (1) Ulcer of left lower extremity, limited to breakdown of skin: CODE(S): L97.921 - 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 He is having less break out of ulcers and the ulcers that he has are starting to heal. Left leg ulcer cluster is healed. Wound care to the right leg ulcer cluster will be adaptic covered with gauze daily after washing the ulcers with soap and water. Compression - Double Tubigrip or Farrow wraps bilateral legs. Wound culture obtained of left leg ulcer on 04/02/23 which was positive for Staphylococcus aureus, Corynebacterium striatum and Anaerobic cocci, he completed the Augmentin. A wound culture was obtained on 11/14/22 of the upper chest/anterior shoulder ulcers which was positive for Staphylococcus aureus, Kocuria kristinae and Gram positive faraz. He has completed the Doxycycline. Keep legs elevated when sitting. Encouraged to sleep in a bed, but he has slept in a recliner for 30 years. He continues to see Dermatology. His biopsy results showed Bullous pemphigoid. Dermatology placed him on steroids oral and cream and started him on Dupixent. Follow up 4 weeks. Call or come in sooner if develop any concerns.
== END 2023-08-28 23:59 | disposition home or self-care (01) ==
LOC: WC 09:07
PROVIDERS: PCP Nurse Practitioner Family; Referring Provider Nurse Practitioner Family; Visit Provider Nurse Practitioner Family
DX: L97.921 Non-pressure chronic ulcer of unspecified part of left lower leg limited to breakdown of skin (principal); L12.0 Bullous pemphigoid; I12.9 Hypertensive chronic kidney disease with stage 1 through stage 4 chronic kidney disease, or unspecified chronic kidney disease; R60.0 Localized edema; N18.2 Chronic kidney disease, stage 2 (mild); R54 Age-related physical debility; G47.33 Obstructive sleep apnea (adult) (pediatric)
CPT/HCPCS: 97597; 97598

== ENCOUNTER 2023-09-10 09:41 | Outpatient (RCR) | payer MEDICARE, MEDICAID, SELFPAY ==
[2023-08-29 00:20] VITALS: BP 139/72; PULSE 66; RESP 20; TEMP 36.4; BMI 40.6
[2023-09-10 09:10] VITALS: BP 141/64; PULSE 68; TEMP 35.7; BMI 40.6
--- NOTE | 2023-09-10 11:51 | PCM.WC.PN ---
History of Present Illness Date of Service: 09/10/23 Chief Complaint: Superficial ulcers to bilateral lower legs History of Wound: Patient is a 78 year old male who has multiple skin lesions scattered over his chest, arms, hands and abdomen and legs. The initial skin lesions started from a bed bugs which were causing him to scratch. He was hospitalized at the end of August for sepsis and cellulitis. He was discharged to [facility]. He has since been discharged home and has home health from [facility]. He does admit to picking at the scabbing. He has not been consistently putting anything on these areas. He is on Warfarin for history of PE, also has a history of HTN, CKD II, anemia, RAAD, bilateral leg edema and debility. He was evaluated by Dermatology. His biopsy results showed Bullous pemphigoid. Dermatology placed him on steroids oral and cream and started him on Dupixent. Wound culture was obtained on 04/02/23 of his left leg ulcer which was positive for Staphylococcus aureus, Corynebacterium striatum and Anaerobic cocci. He was started on Augmentin. Today he denies fever, chills, nausea, vomiting. Progress of Wound: He has been seeing Dermatology for treatment with Dupixent to help with his Bullous pemphigoid. They have recently increased his Dupixent to weekly. The ulcers on his right leg are healed. He has a cluster of ulcers on his left posterior leg and his left lateral leg. His edema is much improved wearing the double tubigrips and Farrow wraps. Objective Data Objective Data Vital Signs: Vital Signs Temp Pulse Resp BP O2 Del Method 96.3 F L 68 20 H 141/64 H Room Air 09/10/23 09:10 09/10/23 09:10 08/29/23 00:20 09/10/23 09:10 09/10/23 09:10 Oxygen Delivery Method Room Air Weight: 300 lb Body Mass Index (BMI) 40.6 Charges/Coding Addendum Addendum: Selective debridement [id number] Debridement Note Debridement Note Wound debrided: leg cluster ulcers posterior and lateral leg Laterality: Left Type of Debridement: Selective debridement Anesthesia Used: 5% Lidocaine Gel Depth: Down to and including healthy tissue and in the subcutaneous layer Percentage of wound debrided: 100 Tissue Removed: Non viable tissue/scabbing Severity: Limited To Skin Breakdown Amount of bleeding with debridement: Mild Bleeding Controlled with: Pressure Patient tolerated procedure: Patient tolerated procedure well Debridement Free Text: Selective debridement with moistened gauze to remove dried scabbing surrounding the blisters/wounds Post-Debridement Measurements and Additional Note: Post-Debridement Measurements/Treatment - Nurse 1 - General Ulcer Assessment Start: 09/10/23 09:10 Freq: Status: Active Protocol: DORY Activity Type Activity Date Activity User E-sign Co-sign Detail Recorded Client Recorded Date Recorded By Document 09/10/23 09:10 Desktop 09/10/23 09:21 09/10/23 09:10 - Today's Visit Information Type of service Follow-up Visit (Physician/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 ASSEMBLER ) Arrival Mode Ambulatory,Cane Transfer Assistance None Patient Identification Verified (Name & Yes ) Patient Requires Transmission-Based No Precautions Safety Precautions Fall Prevention Height and Weight Body Mass Index (BMI) 40.6 BMI Classification Obese Vital Signs Temperature (97.8 F-99.1 F) 96.3 F L Temperature Source Temporal Pulse Rate (60-100) 68 Pulse Location Monitor Oxygen Delivery Method Room Air Blood Pressure (90/60-120/80) 141/64 H Blood Pressure Mean (mm Hg) 89 Source Monitor Position Sitting Blood Pressure Location Left Forearm History Since Last Visit- (Skip if this is Patient's initial visit) Have you changed medications since your No last visit? Any new allergies or adverse reactions No Had a fall/change in ADL's that may No increase risk of falls Signs or symptoms of abuse and/or No neglect since last visit Have you been in the hospital since your No last visit? Has dressing in place as prescribed Yes Has compression in place as prescribed Yes Has offloadiing in place as prescribed No Experienced any changes in pain level or No management Left Footwear Regular Shoe Right Footwear Regular Shoe Pain Scale: 0-10 Numeric Is Patient Pain Free? Yes - Nurse 1 - General Ulcer Measurement Start: 09/10/23 09:10 Freq: Status: Active Protocol: Activity Type Activity Date Activity User E-sign Co-sign Detail Recorded Client Recorded Date Recorded By Document 09/10/23 09:10 [facility] 09/10/23 09:21 09/10/23 09:10 Wound Center Nurse 1 #18- R LEG CLUSTER -Photo Taken No -Tunneling No -Undermining/Tunneling No -Circular Undermining No -Exudate Type Serosanguineous -Texture (Uyen-wound Skin Appearance) Assessed -Moisture (Uyen-wound Skin Appearance) Assessed -Ulcer Cleansing Soap and Water -Foul Odor after Cleansing No -Anesthetic Used 5% Lidocaine Gel #19 L Lat LE -Combined with other wound No -Undermining/Tunneling No -Circular Undermining No -Exudate Type Serosanguineous -Texture (Uyen-wound Skin Appearance) Assessed -Moisture (Uyen-wound Skin Appearance) Assessed -Temperature (Uyen-wound Skin No Abnormality Appearance) (Pt Warm) -Tenderness on Palpation (Uyen-wound No Skin Appearance) -Ulcer Cleansing Soap and Water -Foul Odor after Cleansing No -Anesthetic Used 5% Lidocaine Gel Lower Limb Edema Present No Right Calf (cm) 54.0 Right Ankle (cm) 30.5 Left Calf (cm) 50.2 Left Ankle (cm) 28.5 WC - Nurse 2 - General Ulcer CM Notes Start: 09/10/23 09:10 Freq: Status: Active Protocol: Activity Type Activity Date Activity User E-sign Co-sign Detail Recorded Client Recorded Date Recorded By Document 09/10/23 09:32 Laptop 09/10/23 09:34 09/10/23 09:32 Wound Center Nurse 2 #18- R LEG CLUSTER -Correct Patient No -Correct Side, Site, Position No -Correct Procedure No -Procedure Performed No -Post Debridement (cm) - Length 0 -Post Debridement (cm) - Width 0 -Post Debridement (cm) - Depth 0 -Total Square (Post) (cm) 0 -Area of Debridement (cm) - Length 0 -Area of Debridement (cm) - Width 0 -Total Square (Area) (cm) 0 -Wound/Ulcer Outcome Healed- Epithelialized #19 L Lat LE -Time 09:32 -Correct Patient Yes -Correct Side, Site, Position Yes -Correct Procedure Yes -Procedure Performed Yes -Type of Procedure Debridement -Clinical Debridement Epidermis / Dermis -Tissue Removed Epidermis, Dermis -Post Debridement (cm) - Length 1 -Post Debridement (cm) - Width 1 -Post Debridement (cm) - Depth 0.1 -Total Square (Post) (cm) 1 -Area of Debridement (cm) - Length 1.0 -Area of Debridement (cm) - Width 1.0 -Total Square (Area) (cm) 1.00 -Tunneling No -Undermining/Tunneling No -Circular Undermining No -Wound/Ulcer Outcome Not Healed -Ulcer Cleansing Rinsed/ Irrigated with Saline -Foul Odor after Cleansing No -Bioengineered Tissue No -Bleeding Controlled with Pressure -Treatment Response Procedure Tolerated Well -Offloading No -Debridement - Open, 1st 20sq cm Yes 13. 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 -Time 09:33 -Correct Patient Yes -Correct Side, Site, Position Yes -Correct Procedure Yes -Procedure Performed Yes -Type of Procedure Debridement -Clinical Debridement Epidermis / Dermis -Tissue Removed Epidermis, Dermis -Post Debridement (cm) - Length 1.5 -Post Debridement (cm) - Width 1.0 -Post Debridement (cm) - Depth 0.1 -Total Square (Post) (cm) 1.50 -Area of Debridement (cm) - Length 1.5 -Area of Debridement (cm) - Width 1.0 -Total Square (Area) (cm) 1.50 -Tunneling No -Undermining/Tunneling No -Circular Undermining No -Wound/Ulcer Outcome Not Healed -Ulcer Cleansing Rinsed/ Irrigated with Saline -Foul Odor after Cleansing No -Bioengineered Tissue No -Bleeding Controlled with Pressure -Treatment Response Procedure Tolerated Well -Offloading No -Debridement - Open, 1st 20sq cm No -Debridement - Subq, 1st 20sq cm No Pain Scale: 0-10 Numeric Is Patient Pain Free? Yes - Nurse 3 - General Ulcer D/C NN Start: 09/10/23 09:10 Freq: Status: Active Protocol: Activity Type Activity Date Activity User E-sign Co-sign Detail Recorded Client Recorded Date Recorded By Document 09/10/23 09:42 [facility] Desktop 09/10/23 09:45 [facility] 09/10/23 09:42 Wound Care Center Nurse 3 #19 L Lat LE -Ulcer Cleansing Rinsed/ Irrigated with Saline -Foul Odor after Cleansing No -Primary Dressing Applied NonAdherent Contact Layer -Other Dressing ABD -Primary Dressing Covered/Secured with Dry Gauze & Roll Gauze, Secured with Tape 13. 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 -Ulcer Cleansing Rinsed/ Irrigated with Saline -Foul Odor after Cleansing No -Primary Dressing Applied NonAdherent Contact Layer -Other Dressing ABD -Primary Dressing Covered/Secured with Dry Gauze & Roll Gauze, Secured with Tape BLE -Tubular Bandage Double Layer -Size of Tubigrip Used Size E -Size E ($) 2 Treatment Response Procedure Tolerated Well Pain Scale: 0-10 Numeric Is Patient Pain Free? 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 He is having less break out of ulcers and the ulcers that he has are starting to heal. Left leg ulcer cluster is healed. Wound care to the right leg ulcer cluster will be adaptic covered with gauze daily after washing the ulcers with soap and water. Compression - Double Tubigrip or Farrow wraps bilateral legs. Wound culture obtained of left leg ulcer on 04/02/23 which was positive for Staphylococcus aureus, Corynebacterium striatum and Anaerobic cocci, he completed the Augmentin. A wound culture was obtained on 11/14/22 of the upper chest/anterior shoulder ulcers which was positive for Staphylococcus aureus, Kocuria kristinae and Gram positive faraz. He has completed the Doxycycline. Keep legs elevated when sitting. Encouraged to sleep in a bed, but he has slept in a recliner for 30 years. He continues to see Dermatology. His biopsy results showed Bullous pemphigoid. Dermatology placed him on steroids oral and cream and is managing his Dupixent. Follow up 4 weeks. Call or come in sooner if develop any concerns.
== END 2023-09-27 23:59 | disposition home or self-care (01) ==
LOC: WC 09:41
PROVIDERS: PCP Nurse Practitioner Family; Referring Provider Nurse Practitioner Family; Visit Provider Nurse Practitioner Family
DX: L97.921 Non-pressure chronic ulcer of unspecified part of left lower leg limited to breakdown of skin (principal); R60.9 Edema, unspecified; N18.2 Chronic kidney disease, stage 2 (mild); G47.33 Obstructive sleep apnea (adult) (pediatric); I12.9 Hypertensive chronic kidney disease with stage 1 through stage 4 chronic kidney disease, or unspecified chronic kidney disease; L12.0 Bullous pemphigoid; R54 Age-related physical debility; R60.0 Localized edema; Z79.01 Long term (current) use of anticoagulants; Z86.711 Personal history of pulmonary embolism
CPT/HCPCS: 97597

== ENCOUNTER 2023-11-05 08:50 | Outpatient (RCR) | payer MEDICARE, MEDICAID, SELFPAY ==
[2023-09-28 00:36] VITALS: BP 141/64; PULSE 68; RESP 20; TEMP 35.7; BMI 40.6
[2023-11-05 09:07] VITALS: BP 122/63; PULSE 72; RESP 16; TEMP 35.9; BMI 40.6
--- NOTE | 2023-11-05 11:23 | PCM.WC.PN ---
History of Present Illness Date of Service: 11/05/23 Chief Complaint: Superficial ulcers to bilateral lower legs History of Wound: Patient is a 78 year old male who has multiple skin lesions scattered over his chest, arms, hands and abdomen and legs. The initial skin lesions started from a bed bugs which were causing him to scratch. He was hospitalized at the end of August for sepsis and cellulitis. He was discharged to [facility]. He has since been discharged home and has home health from [facility]. He does admit to picking at the scabbing. He has not been consistently putting anything on these areas. He is on Warfarin for history of PE, also has a history of HTN, CKD II, anemia, RAAD, bilateral leg edema and debility. He was evaluated by Dermatology. His biopsy results showed Bullous pemphigoid. Dermatology placed him on steroids oral and cream and started him on Dupixent. Wound culture was obtained on 04/02/23 of his left leg ulcer which was positive for Staphylococcus aureus, Corynebacterium striatum and Anaerobic cocci. He was started on Augmentin. Today he denies fever, chills, nausea, vomiting. Progress of Wound: He has been seeing Dermatology for treatment with Dupixent to help with his Bullous pemphigoid and he is receiving his Dupixent to weekly. He has a very painful lesion on his forehead that he will not allow to be touched. He has a lesion on his left lateral leg. His edema controlled with wearing the double tubigrips and Farrow wraps. Objective Data Objective Data Vital Signs: Vital Signs Temp Pulse Resp BP O2 Del Method 96.6 F L 72 16 122/63 H Room Air 11/05/23 09:07 11/05/23 09:07 11/05/23 09:07 11/05/23 09:07 11/05/23 09:07 Oxygen Delivery Method Room Air Weight: 300 lb Body Mass Index (BMI) 40.6 Charges/Coding Visit Charges Office Visits / Consults: 84255 OV L4 Est 30min Physical Exam Const alert, oriented x3 and no apparent distress General Appearance: cooperative and comfortable Orientation / Consciousness: awake HEENT normocephalic Head and Scalp: atraumatic Eyes General Eye: normal appearance of both eyes Neck full ROM Resp normal respiratory effort, normal air movement and clear to auscultation bilaterally Effort and Inspection: able to speak in complete sentences Cardio regular rate and regular rhythm Peripheral Pulses: dorsalis pedis pulses present GI soft to palpation and non-tender Back/Spine normal ROM Extremity normal capillary refill Skin Wound Narrative: Scabby sore on center forehead that is extremely painful to any palpation. Left lateral proximal leg ulcer with selective debridement for non viable tissue. Neuro oriented x3 and moves all extremities Psych mental status grossly normal and thought process normal Appearance: appropriate Debridement Note Debridement Note Wound debrided: lateral proximal leg Laterality: Left Wound Grade/Stage: Stage II Type of Debridement: Selective debridement Anesthesia Used: 5% Lidocaine Gel Depth: Down to and including healthy tissue Percentage of wound debrided: 100 Tissue Removed: Moistened gauze used to gently remove non viable tissue Severity: Limited To Skin Breakdown Amount of bleeding with debridement: None Patient tolerated procedure: Patient tolerated procedure well Post-Debridement Measurements and Additional Note: Post-Debridement Measurements/Treatment - Nurse 1 - General Ulcer Assessment Start: 11/05/23 09:07 Freq: Status: Active Protocol: DORY Activity Type Activity Date Activity User E-sign Co-sign Detail Recorded Client Recorded Date Recorded By Document 11/05/23 09:07 [facility] Desktop 11/05/23 09:18 [facility] 11/05/23 09:07 - Today's Visit Information Type of service Follow-up Visit (Physician/FIRST OFFICER AND FLIGHT INSTRUCTOR ) Arrival Mode Ambulatory Transfer Assistance None Transfer Assist (Other) daughter Patient Identification Verified (Name & Yes ) Patient Requires Transmission-Based No Precautions Height and Weight Body Mass Index (BMI) 40.6 BMI Classification Obese Vital Signs Temperature (97.8 F-99.1 F) 96.6 F L Temperature Source Temporal Pulse Rate (60-100) 72 Pulse Location Monitor Respiratory Rate (12-18) 16 Respiratory rate source Observation Oxygen Delivery Method Room Air Blood Pressure (90/60-120/80) 122/63 H Blood Pressure Mean (mm Hg) 82 Source Monitor Position Sitting Blood Pressure Location Left Arm History Since Last Visit- (Skip if this is Patient's initial visit) Have you changed medications since your No last visit? Any new allergies or adverse reactions No Had a fall/change in ADL's that may No increase risk of falls Signs or symptoms of abuse and/or No neglect since last visit Have you been in the hospital since your No last visit? Has dressing in place as prescribed Yes Has compression in place as prescribed Yes Has offloadiing in place as prescribed N/A Experienced any changes in pain level or No management Left Footwear Slipper Right Footwear Slipper Pain Scale: 0-10 Numeric Is Patient Pain Free? Yes WC - Nurse 1 - General Ulcer Measurement Start: 11/05/23 09:07 Freq: Status: Active Protocol: Activity Type Activity Date Activity User E-sign Co-sign Detail Recorded Client Recorded Date Recorded By Document 11/05/23 09:07 [facility] Desktop 11/05/23 09:18 [facility] 11/05/23 09:07 Wound Center Nurse 1 #19 L Lat LE -Combined with other wound No -Current Size (cm) - Length 0.5 -Current Size (cm) - Width 0.9 -Current Size (cm) - Depth 0.1 -Total Square Cm 0.45 -Date of Last Picture (Recall this 11/05/23 field) -Photo Taken Yes -Epithelialization Medium 34-66% -Tunneling No -Undermining/Tunneling No -Circular Undermining No -Exudate Amt Small -Exudate Type Serosanguineous -Wound Margin Flat & Intact -Granulation Amt Medium (34-66%) -Granulation Quality Red -Slough/Fibrin Yes -Necrosis Amt Small (1-33%) -Necrotic Tissue Type Eschar -Texture (Uyen-wound Skin Appearance) Assessed, Fluctuance,Rash -Moisture (Uyen-wound Skin Appearance) Assessed,Dry/ Scaly -Color (Uyen-wound Skin Appearance) Assessed, Erythema -Temperature (Uyen-wound Skin No Abnormality Appearance) (Pt Warm) -Tenderness on Palpation (Uyen-wound No Skin Appearance) -Ulcer Cleansing Soap and Water -Foul Odor after Cleansing No -Anesthetic Used 4% Lidocaine Solution 13. 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 -Combined with other wound No -Current Size (cm) - Length 0.1 -Current Size (cm) - Width 0.1 -Current Size (cm) - Depth 0.1 -Total Square Cm 0.01 -Date of Last Picture (Recall this 11/05/23 field) -Photo Taken Yes -Epithelialization Large 67-100% -Tunneling No -Undermining/Tunneling No -Circular Undermining No -Exudate Amt None Present -Wound Margin Distinct, Outline Attached -Necrosis Amt Small (1-33%) -Necrotic Tissue Type Eschar -Texture (Uyen-wound Skin Appearance) Assessed, Scarring -Moisture (Uyen-wound Skin Appearance) Assessed -Color (Uyen-wound Skin Appearance) Assessed -Temperature (Uyen-wound Skin No Abnormality Appearance) (Pt Warm) -Tenderness on Palpation (Uyen-wound No Skin Appearance) -Ulcer Cleansing Soap and Water -Foul Odor after Cleansing No -Anesthetic Used 4% Lidocaine Solution Lower Limb Edema Present Yes Right Calf (cm) 52 Right Ankle (cm) 24.5 Left Calf (cm) 43.3 Left Ankle (cm) 24.8 SIMON - Nurse 2 - General Ulcer CM Notes Start: 11/05/23 09:07 Freq: Status: Active Protocol: Activity Type Activity Date Activity User E-sign Co-sign Detail Recorded Client Recorded Date Recorded By Document 11/05/23 09:33 [employer] Laptop 11/05/23 09:36 JF 11/05/23 09:33 Wound Center Nurse 2 #19 L Lat LE -Time 09:35 -Correct Patient Yes -Correct Side, Site, Position Yes -Correct Procedure Yes -Procedure Performed Yes -Type of Procedure Debridement -Clinical Debridement Epidermis / Dermis -Tissue Removed Epidermis, Dermis -Post Debridement (cm) - Length 1.5 -Post Debridement (cm) - Width 2.0 -Post Debridement (cm) - Depth 0.1 -Total Square (Post) (cm) 3.00 -Area of Debridement (cm) - Length 1.5 -Area of Debridement (cm) - Width 2.0 -Total Square (Area) (cm) 3.00 -Tunneling No -Undermining/Tunneling No -Circular Undermining No -Wound/Ulcer Outcome Not Healed -Ulcer Cleansing Rinsed/ Irrigated with Saline -Foul Odor after Cleansing No -Bioengineered Tissue No -Bleeding Controlled with Pressure -Treatment Response Procedure Tolerated Well -Offloading No -Debridement - Open, 1st 20sq cm Yes 13. 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 -Correct Patient No -Correct Side, Site, Position No -Correct Procedure No -Procedure Performed No -Wound/Ulcer Outcome Not Healed Pain Scale: 0-10 Numeric Is Patient Pain Free? Yes SIMON - Nurse 3 - General Ulcer D/C NN Start: 11/05/23 09:07 Freq: Status: Active Protocol: Activity Type Activity Date Activity User E-sign Co-sign Detail Recorded Client Recorded Date Recorded By Document 11/05/23 09:44 KW Desktop 11/05/23 09:47 KW 11/05/23 09:44 Wound Care Center Nurse 3 #19 L Lat LE -Primary Dressing Applied NonAdherent Contact Layer -Primary Dressing Covered/Secured with Dry Gauze, Secured with Tape 13. 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 -Primary Dressing Applied NonAdherent Contact Layer -Primary Dressing Covered/Secured with Dry Gauze, Secured with Tape Right -Tubular Bandage Double Layer -Size of Tubigrip Used Size E -Size E ($) 2 Left -Tubular Bandage Double Layer -Size of Tubigrip Used Size E -Size E ($) 2 Pain Scale: 0-10 Numeric Is Patient Pain Free? 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 He is having less break out of ulcers and the ulcers that he has are starting to heal. Left leg ulcer cluster is healed. Wound care to the left leg ulcer is adaptic topped with ABD daily after washing with soap and water. Compression - Double Tubigrip or Farrow wraps bilateral legs. Wound culture obtained of left leg ulcer on 04/02/23 which was positive for Staphylococcus aureus, Corynebacterium striatum and Anaerobic cocci, he completed the Augmentin. A wound culture was obtained on 11/14/22 of the upper chest/anterior shoulder ulcers which was positive for Staphylococcus aureus, Kocuria kristinae and Gram positive faraz. He has completed the Doxycycline. Keep legs elevated when sitting. Encouraged to sleep in a bed, but he has slept in a recliner for 30 years. He continues to see Dermatology. His biopsy results showed Bullous pemphigoid. Dermatology placed him on steroids oral and cream and is managing his Dupixent. Instructed to notify Dermatology when he sees them this week of the forehead ulcer that is non healing and very painful. Follow up 4 weeks. Call or come in sooner if develop any concerns.
== END 2023-11-28 23:59 | disposition home or self-care (01) ==
LOC: WC 08:50
PROVIDERS: PCP Nurse Practitioner Family; Referring Provider Nurse Practitioner Family; Visit Provider Nurse Practitioner Family
DX: L97.921 Non-pressure chronic ulcer of unspecified part of left lower leg limited to breakdown of skin (principal); L97.911 Non-pressure chronic ulcer of unspecified part of right lower leg limited to breakdown of skin; L12.0 Bullous pemphigoid; R60.0 Localized edema; R54 Age-related physical debility; Z79.01 Long term (current) use of anticoagulants; I12.9 Hypertensive chronic kidney disease with stage 1 through stage 4 chronic kidney disease, or unspecified chronic kidney disease; N18.2 Chronic kidney disease, stage 2 (mild); G47.33 Obstructive sleep apnea (adult) (pediatric); Z86.711 Personal history of pulmonary embolism
CPT/HCPCS: 97597

== ENCOUNTER 2023-12-03 08:40 | Outpatient (RCR) | payer MEDICARE, MEDICAID, SELFPAY ==
[2023-11-29 00:06] VITALS: BP 122/63; PULSE 72; RESP 16; TEMP 35.9; BMI 40.6
[2023-12-03 08:45] VITALS: BP 125/73; PULSE 67; RESP 18; TEMP 36; BMI 40.6
--- NOTE | 2023-12-03 12:13 | PN.PCM_ITS ---
History of Present Illness Date of Service: 12/03/23 Chief Complaint: Superficial ulcers to bilateral lower legs History of Wound: Patient is a 78 year old male who has multiple skin lesions scattered over his chest, arms, hands and abdomen and legs. The initial skin lesions started from a bed bugs which were causing him to scratch. He was hospitalized at the end of August for sepsis and cellulitis. He was discharged to [facility]. He has since been discharged home and has home health from [facility]. He does admit to picking at the scabbing. He has not been consistently putting anything on these areas. He is on Warfarin for history of PE, also has a history of HTN, CKD II, anemia, RAAD, bilateral leg edema and debility. He was evaluated by Dermatology. His biopsy results showed Bullous pemphigoid. Dermatology placed him on steroids oral and cream and started him on Dupixent. Wound culture was obtained on 04/02/23 of his left leg ulcer which was positive for Staphylococcus aureus, Corynebacterium striatum and Anaerobic cocci. He was started on Augmentin. Today he denies fever, chills, nausea, vomiting. Progress of Wound: He has been seeing Dermatology for treatment with Dupixent to help with his Bull ous pemphigoid. He continues to have has a painful lesion on his forehead. He states that he has spoken with Dermatology and they are going to biopsy it but are getting insurance approval first. It appears stable from his last visit. He still has an ulcer on his left posterior lateral leg and left anterior proximal leg. His edema controlled with wearing the double tubigrips. Objective Data Objective Data Vital Signs: Vital Signs Temp Pulse Resp BP O2 Del Method 96.8 F L 67 18 125/73 H Room Air 12/03/23 08:45 12/03/23 08:45 12/03/23 08:45 12/03/23 08:45 12/03/23 08:45 Oxygen Delivery Method Room Air Weight: 300 lb Body Mass Index (BMI) 40.6 Charges/Coding Visit Charges Office Visits / Consults: 05272 OV L4 Est 30min Physical Exam Const alert, oriented x3 and no apparent distress General Appearance: cooperative and comfortable Orientation / Consciousness: awake HEENT normocephalic Head and Scalp: atraumatic Eyes General Eye: normal appearance of both eyes Neck full ROM Resp normal respiratory effort, normal air movement and clear to auscultation bilaterally Effort and Inspection: able to speak in complete sentences Cardio regular rate and regular rhythm Peripheral Pulses: dorsalis pedis pulses present GI normal to inspection, nondistended, normoactive bowel sounds, soft to palpation and non-tender Back/Spine normal ROM Extremity normal capillary refill Skin Wound Narrative: Left anterior lateral proximal leg ulcer and left posterior lateral leg ulcer with selective debridement for non viable tissue. Right forehead has painful, scabby lesion that is stable. Neuro oriented x3 and moves all extremities Psych mental status grossly normal and thought process normal Appearance: appropriate Debridement Note Debridement Note Wound debrided: lateral proximal leg and posterior lateral leg ulcers Laterality: Left Wound Grade/Stage: Stage II Type of Debridement: Selective debridement Anesthesia Used: 5% Lidocaine Gel Depth: Down to and including healthy tissue Percentage of wound debrided: 100 Tissue Removed: Moistened gauze used to gently remove non viable tissue Severity: Limited To Skin Breakdown Amount of bleeding with debridement: Mild Bleeding Controlled with: Compression and gauze Patient tolerated procedure: Patient tolerated procedure well Post-Debridement Measurements and Additional Note: Post-Debridement Measurements/Treatment - Nurse 1 - General Ulcer Assessment Start: 12/03/23 08:45 Freq: Status: Active Protocol: [email or web address] Activity Type Activity Date Activity User E-sign Co-sign Detail Recorded Client Recorded Date Recorded By Document 12/03/23 08:45 KW Desktop 12/03/23 08:51 KW 12/03/23 08:45 - Today's Visit Information Type of service Follow-up Visit (Physician/METAL SANDER ) Arrival Mode Ambulatory,Cane Accompanied by daughter Patient Identification Verified (Name & Yes ) Height and Weight Body Mass Index (BMI) 40.6 BMI Classification Obese Vital Signs Temperature (97.8 F-99.1 F) 96.8 F L Temperature Source Temporal Pulse Rate (60-100) 67 Pulse Location Monitor Respiratory Rate (12-18) 18 Respiratory rate source Observation Oxygen Delivery Method Room Air Blood Pressure (90/60-120/80) 125/73 H Blood Pressure Mean (mm Hg) 90 Source Monitor Position Semi-Fowlers Blood Pressure Location Left Arm History Since Last Visit- (Skip if this is Patient's initial visit) Have you changed medications since your No last visit? Any new allergies or adverse reactions No Had a fall/change in ADL's that may No increase risk of falls Signs or symptoms of abuse and/or No neglect since last visit Have you been in the hospital since your No last visit? Has dressing in place as prescribed Yes Has compression in place as prescribed Yes Has offloadiing in place as prescribed N/A Experienced any changes in pain level or No management Left Footwear Regular Shoe Right Footwear Regular Shoe Pain Scale: 0-10 Numeric Is Patient Pain Free? Yes WC - Nurse 1 - General Ulcer Measurement Start: 12/03/23 08:45 Freq: Status: Active Protocol: Activity Type Activity Date Activity User E-sign Co-sign Detail Recorded Client Recorded Date Recorded By Document 12/03/23 08:45 KW Desktop 12/03/23 08:51 KW 12/03/23 08:45 Wound Center Nurse 1 #19 L Lat LE -Current Size (cm) - Length 3.6 -Current Size (cm) - Width 1.5 -Current Size (cm) - Depth 0.1 -Total Square Cm 5.40 -Date of Last Picture (Recall this 12/03/23 field) -Photo Taken Yes -Exudate Amt Medium -Exudate Type Serosanguineous -Wound Margin Distinct, Outline Attached -Granulation Amt Large (67-100%) -Granulation Quality Red -Texture (Uyen-wound Skin Appearance) Assessed -Moisture (Uyen-wound Skin Appearance) Assessed -Color (Uyen-wound Skin Appearance) Erythema -Temperature (Uyen-wound Skin No Abnormality Appearance) (Pt Warm) -Ulcer Cleansing Rinsed/ Irrigated with Saline -Foul Odor after Cleansing No -Anesthetic Used 5% Lidocaine Gel 13. 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 -Current Size (cm) - Length 1.5 -Current Size (cm) - Width 1.1 -Current Size (cm) - Depth 0.1 -Total Square Cm 1.65 -Date of Last Picture (Recall this 12/03/23 field) -Photo Taken Yes -Exudate Amt Medium -Exudate Type Serosanguineous -Wound Margin Distinct, Outline Attached -Granulation Amt Large (67-100%) -Granulation Quality Red -Texture (Uyen-wound Skin Appearance) Assessed -Moisture (Uyen-wound Skin Appearance) Assessed -Color (Uyen-wound Skin Appearance) Assessed -Temperature (Uyen-wound Skin No Abnormality Appearance) (Pt Warm) -Ulcer Cleansing Rinsed/ Irrigated with Saline -Anesthetic Used 5% Lidocaine Gel Left Calf (cm) 45.6 Left Ankle (cm) 25.9 WC - Nurse 2 - General Ulcer CM Notes Start: 12/03/23 08:45 Freq: Status: Active Protocol: Activity Type Activity Date Activity User E-sign Co-sign Detail Recorded Client Recorded Date Recorded By Document 12/03/23 09:05 JF Laptop 12/03/23 09:07 JF 12/03/23 09:05 Wound Center Nurse 2 #19 L Lat LE -Time 09:05 -Correct Patient Yes -Correct Side, Site, Position Yes -Correct Procedure Yes -Procedure Performed Yes -Type of Procedure Debridement -Clinical Debridement Epidermis / Dermis -Tissue Removed Epidermis, Dermis -Post Debridement (cm) - Length 3.7 -Post Debridement (cm) - Width 2.0 -Post Debridement (cm) - Depth 0.1 -Total Square (Post) (cm) 7.40 -Area of Debridement (cm) - Length 3.7 -Area of Debridement (cm) - Width 2.0 -Total Square (Area) (cm) 7.40 -Tunneling No -Undermining/Tunneling No -Circular Undermining No -Wound/Ulcer Outcome Not Healed -Ulcer Cleansing Rinsed/ Irrigated with Saline -Foul Odor after Cleansing No -Bioengineered Tissue No -Bleeding Controlled with Pressure -Treatment Response Procedure Tolerated Well -Offloading No -Debridement - Open, 1st 20sq cm Yes 13. 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 -Time 09:06 -Correct Patient Yes -Correct Side, Site, Position Yes -Correct Procedure Yes -Procedure Performed Yes -Type of Procedure Debridement -Clinical Debridement Epidermis / Dermis -Tissue Removed Epidermis, Dermis -Post Debridement (cm) - Length 1.8 -Post Debridement (cm) - Width 1.5 -Post Debridement (cm) - Depth 0.1 -Total Square (Post) (cm) 2.70 -Area of Debridement (cm) - Length 1.8 -Area of Debridement (cm) - Width 1.5 -Total Square (Area) (cm) 2.70 -Tunneling No -Undermining/Tunneling No -Circular Undermining No -Wound/Ulcer Outcome Not Healed -Ulcer Cleansing Rinsed/ Irrigated with Saline -Foul Odor after Cleansing No -Bioengineered Tissue No -Bleeding Controlled with Pressure -Treatment Response Procedure Tolerated Well -Offloading No -Debridement - Open, 1st 20sq cm No Pain Scale: 0-10 Numeric Is Patient Pain Free? Yes - Nurse 3 - General Ulcer D/C NN Start: 12/03/23 08:45 Freq: Status: Active Protocol: Activity Type Activity Date Activity User E-sign Co-sign Detail Recorded Client Recorded Date Recorded By Document 12/03/23 09:14 KW Desktop 12/03/23 09:15 KW 12/03/23 09:14 Wound Care Center Nurse 3 #19 L Lat LE -Primary Dressing Applied NonAdherent Contact Layer -Primary Dressing Covered/Secured with Dry Gauze & Roll Gauze, Secured with Tape 13. 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 -Primary Dressing Applied NonAdherent Contact Layer -Primary Dressing Covered/Secured with Dry Gauze & Roll Gauze, Secured with Tape Pain Scale: 0-10 Numeric Is Patient Pain Free? 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 Wound care to the left leg ulcers is adaptic topped with ABD daily after washing with soap and water. Compression - Double Tubigrip or Farrow wraps bilateral legs. Wound culture obtained of left leg ulcer on 04/02/23 which was positive for Staphylococcus aureus, Corynebacterium striatum and Anaerobic cocci, he completed the Augmentin. A wound culture was obtained on 11/14/22 of the upper chest/anterior shoulder ulcers which was positive for Staphylococcus aureus, Kocuria kristinae and Gram positive faraz. He has completed the Doxycycline. Keep legs elevated when sitting. Encouraged to sleep in a bed, but he has slept in a recliner for 30 years. He continues to see Dermatology. His biopsy results showed Bullous pemphigoid. Dermatology placed him Dupixent. Dermatology will be biopsying his right forehead painful, scabby lesion. Follow up 4 weeks. Call or come in sooner if develop any concerns.
--- NOTE | 2023-12-04 08:19 | WC ---
Addendum entered by Angelina Valencia 12/04/23 08:21: date edit: visit was 12.03.23 Original Note: 2.11.21
== END 2023-12-27 23:59 | disposition home or self-care (01) ==
LOC: WC 08:40
PROVIDERS: PCP Nurse Practitioner Family; Referring Provider Nurse Practitioner Family; Visit Provider Nurse Practitioner Family
DX: L97.921 Non-pressure chronic ulcer of unspecified part of left lower leg limited to breakdown of skin (principal); L12.0 Bullous pemphigoid; R60.0 Localized edema; R54 Age-related physical debility; I12.9 Hypertensive chronic kidney disease with stage 1 through stage 4 chronic kidney disease, or unspecified chronic kidney disease; N18.2 Chronic kidney disease, stage 2 (mild); G47.33 Obstructive sleep apnea (adult) (pediatric); Z79.01 Long term (current) use of anticoagulants; Z86.711 Personal history of pulmonary embolism
CPT/HCPCS: 97597

== ENCOUNTER 2024-01-14 08:51 | Outpatient (RCR) | payer MEDICARE, MEDICAID, SELFPAY ==
[2023-12-28 00:07] VITALS: BP 125/73; PULSE 67; RESP 18; TEMP 36; BMI 40.6
[2024-01-14 08:58] VITALS: BP 137/75; PULSE 72; RESP 18; TEMP 35.8; BMI 40.6
--- NOTE | 2024-01-14 10:08 | PCM.WC.PN ---
History of Present Illness Date of Service: 01/14/24 Chief Complaint: Superficial ulcers to bilateral lower legs History of Wound: Patient is a 78 year old male who has multiple skin lesions scattered over his chest, arms, hands and abdomen and legs. The initial skin lesions started from a bed bugs which were causing him to scratch. He was hospitalized at the end of August for sepsis and cellulitis. He was discharged to [facility]. He has since been discharged home and has home health from [facility]. He does admit to picking at the scabbing. He has not been consistently putting anything on these areas. He is on Warfarin for history of PE, also has a history of HTN, CKD II, anemia, RAAD, bilateral leg edema and debility. He was evaluated by Dermatology. His biopsy results showed Bullous pemphigoid. Dermatology placed him on steroids oral and cream and started him on Dupixent. Wound culture was obtained on 04/02/23 of his left leg ulcer which was positive for Staphylococcus aureus, Corynebacterium striatum and Anaerobic cocci. He was started on Augmentin. Today he denies fever, chills, nausea, vomiting. Progress of Wound: He has been seeing Dermatology for treatment with Dupixent to help with his Bullous pemphigoid. The ulcer on his left lateral leg is healed. He has a new ulcer on his left posterior leg. His edema controlled with wearing the double tubigrips. Objective Data Objective Data Vital Signs: Vital Signs Temp Pulse Resp BP O2 Del Method 96.5 F L 72 18 137/75 H Room Air 01/14/24 08:58 01/14/24 08:58 01/14/24 08:58 01/14/24 08:58 01/14/24 08:58 Oxygen Delivery Method Room Air Weight: 300 lb Body Mass Index (BMI) 40.6 Charges/Coding Addendum Addendum: Selective debridement 64854 Debridement Note Debridement Note Wound debrided: posterior leg Laterality: Left Wound Grade/Stage: Stage II Type of Debridement: Selective debridement Anesthesia Used: 5% Lidocaine Gel Depth: Down to and including healthy tissue Percentage of wound debrided: 100 Tissue Removed: Moistened gauze used to gently remove non viable tissue Severity: Limited To Skin Breakdown Amount of bleeding with debridement: Mild Bleeding Controlled with: Compression and gauze Patient tolerated procedure: Patient tolerated procedure well Post-Debridement Measurements and Additional Note: Post-Debridement Measurements/Treatment SIMON - Nurse 1 - General Ulcer Assessment Start: 01/14/24 08:56 Freq: Status: Active Protocol: DORY Activity Type Activity Date Activity User E-sign Co-sign Detail Recorded Client Recorded Date Recorded By Document 01/14/24 08:58 KW [place] 01/14/24 09:06 KW 01/14/24 08:58 WC - Today's Visit Information Type of service Follow-up Visit (Physician/LINE PATROLMAN ) Arrival Mode Ambulatory,Cane Accompanied by daughter Patient Identification Verified (Name & Yes ) Height and Weight Body Mass Index (BMI) 40.6 BMI Classification Obese Vital Signs Temperature (97.8 F-99.1 F) 96.5 F L Temperature Source Temporal Pulse Rate (60-100) 72 Pulse Location Monitor Respiratory Rate (12-18) 18 Respiratory rate source Observation Oxygen Delivery Method Room Air Blood Pressure (90/60-120/80) 137/75 H Blood Pressure Mean (mm Hg) 95 Source Monitor Position Sitting Blood Pressure Location Left Arm History Since Last Visit- (Skip if this is Patient's initial visit) Have you changed medications since your No last visit? Any new allergies or adverse reactions No Had a fall/change in ADL's that may No increase risk of falls Signs or symptoms of abuse and/or No neglect since last visit Have you been in the hospital since your No last visit? Has dressing in place as prescribed Yes Has compression in place as prescribed Yes Has offloadiing in place as prescribed N/A Experienced any changes in pain level or No management Left Footwear Regular Shoe Right Footwear Regular Shoe Pain Scale: 0-10 Numeric Is Patient Pain Free? Yes - Nurse 1 - General Ulcer Measurement Start: 01/14/24 08:56 Freq: Status: Active Protocol: Activity Type Activity Date Activity User E-sign Co-sign Detail Recorded Client Recorded Date Recorded By Document 01/14/24 08:58 KW [place] 01/14/24 09:06 01/14/24 08:58 Wound Center Nurse 1 #19 L Lat LE -Current Size (cm) - Length 1.8 -Current Size (cm) - Width 1.3 -Current Size (cm) - Depth 0.1 -Total Square Cm 2.34 -Granulation Amt Large (67-100%) -Granulation Quality Red -Texture (Uyen-wound Skin Appearance) Assessed -Moisture (Uyen-wound Skin Appearance) Assessed -Color (Uyen-wound Skin Appearance) Assessed -Temperature (Uyen-wound Skin No Abnormality Appearance) (Pt Warm) -Ulcer Cleansing Soap and Water -Anesthetic Used 5% Lidocaine Gel Right Calf (cm) 47.2 Right Ankle (cm) 25 Left Calf (cm) 48.8 Left Ankle (cm) 25.6 WC - Nurse 2 - General Ulcer CM Notes Start: 01/14/24 08:56 Freq: Status: Active Protocol: Activity Type Activity Date Activity User E-sign Co-sign Detail Recorded Client Recorded Date Recorded By Document 01/14/24 09:12 JAYESH Laptop 01/14/24 09:15 JAYESH Edit Result 01/14/24 09:12 JF (1) Laptop 01/14/24 09:15 JAYESH (1) 13. [facility] CLUSTER - Clinical Debridement Subcutaneous => Epidermis / Dermis - Tissue Removed Subcutaneous => Epidermis,Dermis - Debridement - Open, 1st 20sq cm => Yes - Debridement - Subq, 1st 20sq cm Yes => 01/14/24 09:12 Wound Center Nurse 2 #19 L Lat LE -Time 09:13 -Correct Patient No -Correct Side, Site, Position No -Correct Procedure No -Procedure Performed No -Post Debridement (cm) - Length 0 -Post Debridement (cm) - Width 0 -Post Debridement (cm) - Depth 0 -Total Square (Post) (cm) 0 -Area of Debridement (cm) - Length 0 -Area of Debridement (cm) - Width 0 -Total Square (Area) (cm) 0 -Tunneling No -Undermining/Tunneling No -Circular Undermining No -Wound/Ulcer Outcome Healed- Epithelialized -Ulcer Cleansing Rinsed/ Irrigated with Saline -Foul Odor after Cleansing No -Bioengineered Tissue No -Bleeding Controlled with Pressure -Treatment Response Procedure Tolerated Well -Offloading No -Debridement - Subq, 1st 20sq cm Yes 13. E lateral POSTERIOR CLUSTER -Time 09:14 -Correct Patient Yes -Correct Side, Site, Position Yes -Correct Procedure Yes -Procedure Performed Yes -Type of Procedure Debridement -Clinical Debridement Epidermis / Dermis -Tissue Removed Epidermis, Dermis -Post Debridement (cm) - Length 1.8 -Post Debridement (cm) - Width 1.5 -Post Debridement (cm) - Depth 0.1 -Total Square (Post) (cm) 2.70 -Area of Debridement (cm) - Length 1.8 -Area of Debridement (cm) - Width 1.5 -Total Square (Area) (cm) 2.70 -Tunneling No -Undermining/Tunneling No -Circular Undermining No -Wound/Ulcer Outcome Not Healed -Ulcer Cleansing Rinsed/ Irrigated with Saline -Foul Odor after Cleansing No -Bioengineered Tissue No -Bleeding Controlled with Pressure -Treatment Response Procedure Tolerated Well -Offloading No -Debridement - Open, 1st 20sq cm Yes Pain Scale: 0-10 Numeric Is Patient Pain Free? Yes - Nurse 3 - General Ulcer D/C NN Start: 01/14/24 08:56 Freq: Status: Active Protocol: Activity Type Activity Date Activity User E-sign Co-sign Detail Recorded Client Recorded Date Recorded By Document 01/14/24 09:20 KW Desktop 01/14/24 09:21 KW 01/14/24 09:20 Wound Care Center Nurse 3 13. 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 -Primary Dressing Applied NonAdherent Contact Layer -Primary Dressing Covered/Secured with Dry Gauze & Roll Gauze, Secured with Tape Right -Tubular Bandage Double Layer -Size of Tubigrip Used Size E -Size E ($) 2 Left -Tubular Bandage Double Layer -Size of Tubigrip Used Size E -Size E ($) 2 Pain Scale: 0-10 Numeric Is Patient Pain Free? 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 Wound care to the left leg ulcers is adaptic topped with ABD daily after washing with soap and water. Compression - Double Tubigrip or Farrow wraps bilateral legs. Wound culture obtained of left leg ulcer on 04/02/23 which was positive for Staphylococcus aureus, Corynebacterium striatum and Anaerobic cocci, he completed the Augmentin. A wound culture was obtained on 11/14/22 of the upper chest/anterior shoulder ulcers which was positive for Staphylococcus aureus, Kocuria kristinae and Gram positive faraz. He has completed the Doxycycline. Keep legs elevated when sitting. Encouraged to sleep in a bed, but he has slept in a recliner for 30 years. He continues to see Dermatology. His biopsy results showed Bullous pemphigoid. Dermatology placed him Dupixent. Dermatology will be biopsying his right forehead painful, scabby lesion. Follow up 4 weeks. Call or come in sooner if develop any concerns.
== END 2024-01-27 23:59 | disposition home or self-care (01) ==
LOC: WC 08:51
PROVIDERS: PCP Nurse Practitioner Family; Referring Provider Nurse Practitioner Family; Visit Provider Nurse Practitioner Family
DX: L97.921 Non-pressure chronic ulcer of unspecified part of left lower leg limited to breakdown of skin (principal); L12.0 Bullous pemphigoid; R54 Age-related physical debility; R60.0 Localized edema; I12.9 Hypertensive chronic kidney disease with stage 1 through stage 4 chronic kidney disease, or unspecified chronic kidney disease; N18.2 Chronic kidney disease, stage 2 (mild); G47.33 Obstructive sleep apnea (adult) (pediatric); Z79.01 Long term (current) use of anticoagulants; Z86.711 Personal history of pulmonary embolism
CPT/HCPCS: 11042; 97597

== ENCOUNTER 2024-02-11 08:49 | Outpatient (RCR) | payer MEDICARE, MEDICAID, SELFPAY ==
[2024-01-28 00:12] VITALS: BP 137/75; PULSE 72; RESP 18; TEMP 35.8; BMI 40.6
[2024-02-11 08:55] VITALS: BP 127/80; PULSE 66; RESP 20; TEMP 36.4; BMI 40.6
--- NOTE | 2024-02-11 12:59 | PN.PCM_ITS ---
History of Present Illness Date of Service: 02/11/24 Chief Complaint: Superficial ulcers to bilateral lower legs History of Wound: Patient is a 78 year old male who has multiple skin lesions scattered over his chest, arms, hands and abdomen and legs. The initial skin lesions started from a bed bugs which were causing him to scratch. He was hospitalized at the end of August for sepsis and cellulitis. He was discharged to [facility]. He has since been discharged home and has home health from [facility]. He does admit to picking at the scabbing. He has not been consistently putting anything on these areas. He is on Warfarin for history of PE, also has a history of HTN, CKD II, anemia, RAAD, bilateral leg edema and debility. He was evaluated by Dermatology. His biopsy results showed Bullous pemphigoid. Dermatology placed him on steroids oral and cream and started him on Dupixent. Wound culture was obtained on 04/02/23 of his left leg ulcer which was positive for Staphylococcus aureus, Corynebacterium striatum and Anaerobic cocci. He was started on Augmentin. Today he denies fever, chills, nausea, vomiting. Progress of Wound: He has been seeing Dermatology for treatment with Dupixent to help with his Bull ous pemphigoid. He has an ulcer on his left anterior leg that has increased scabbing and slough. He has a small ulcer on his left posterior leg. His edema controlled with wearing the double tubigrips. He continues to have a scabby, painful, non healing ulcer on his left forehead, which he has yet to get biopsied. Objective Data Objective Data Vital Signs: Vital Signs Temp Pulse Resp BP 97.5 F L 66 20 H 127/80 H 02/11/24 08:55 02/11/24 08:55 02/11/24 08:55 02/11/24 08:55 Weight: 300 lb Body Mass Index (BMI) 40.6 Charges/Coding Procedures Integumentary [id number]: [id number] Roxie subq tissue 20 sq cm/< Debridement Note Debridement Note Wound debrided: anterior leg Laterality: Left Wound Grade/Stage: Stage II Type of Debridement: Excisional debridement Anesthesia Used: 5% Lidocaine Gel Depth: Down to and including healthy tissue and in the subcutaneous layer Percentage of wound debrided: 100 Instrument Used: 5mm curette Tissue Removed: Non viable tissue and slough Severity: Limited To Skin Breakdown Amount of bleeding with debridement: Mild Bleeding Controlled with: Compression and gauze Debridement Free Text: Large amount of scabbing and dried non viable tissue surrounding the wound Post-Debridement Measurements and Additional Note: Post-Debridement Measurements/Treatment SIMON - Nurse 1 - General Ulcer Assessment Start: 02/11/24 08:55 Freq: Status: Active Protocol: DORY Activity Type Activity Date Activity User E-sign Co-sign Detail Recorded Client Recorded Date Recorded By Document 02/11/24 08:55 DL Desktop 02/11/24 09:07 DL 02/11/24 08:55 WC - Today's Visit Information Type of service Follow-up Visit (Physician/AUTOMOTIVE SERVICE DIRECTOR ) Arrival Mode Ambulatory,Cane Transfer Assistance None Patient Identification Verified (Name & Yes ) Patient Requires Transmission-Based No Precautions Height and Weight Body Mass Index (BMI) 40.6 BMI Classification Obese Vital Signs Temperature (97.8 F-99.1 F) 97.5 F L Temperature Source Temporal Pulse Rate (60-100) 66 Respiratory Rate (12-18) 20 H Respiratory rate source Observation Blood Pressure (90/60-120/80) 127/80 H Blood Pressure Mean (mm Hg) 95 Source Monitor History Since Last Visit- (Skip if this is Patient's initial visit) Have you changed medications since your No last visit? Any new allergies or adverse reactions No Had a fall/change in ADL's that may No increase risk of falls Signs or symptoms of abuse and/or No neglect since last visit Have you been in the hospital since your No last visit? Has dressing in place as prescribed Yes Has compression in place as prescribed Yes Has offloadiing in place as prescribed Yes Experienced any changes in pain level or No management Pain Scale: 0-10 Numeric Is Patient Pain Free? Yes - Nurse 1 - General Ulcer Measurement Start: 02/11/24 08:55 Freq: Status: Active Protocol: Activity Type Activity Date Activity User E-sign Co-sign Detail Recorded Client Recorded Date Recorded By Document 02/11/24 08:55 DL [employer] 02/11/24 09:07 DL 02/11/24 08:55 Wound Center Nurse 1 13. 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 -Current Size (cm) - Length 5 -Current Size (cm) - Width 3 -Current Size (cm) - Depth 0.1 -Total Square Cm 15 -Photo Taken Yes -Exudate Amt Small -Exudate Type Serosanguineous -Wound Margin Distinct, Outline Attached -Granulation Amt Medium (34-66%) -Granulation Quality [place] -Necrosis Amt Medium (34-66%) -Necrotic Tissue Type Adherent Slough -Structure Exposed N/A -Texture (Uyen-wound Skin Appearance) Scarring -Moisture (Uyen-wound Skin Appearance) No Abnormality -Color (Uyen-wound Skin Appearance) No Abnormality -Temperature (Uyen-wound Skin No Abnormality Appearance) (Pt Warm) -Tenderness on Palpation (Uyen-wound No Skin Appearance) -Ulcer Cleansing Soap and Water -Foul Odor after Cleansing No -Anesthetic Used 5% Lidocaine Gel Right Calf (cm) 48.5 Right Ankle (cm) 25 Left Calf (cm) 51 Left Ankle (cm) 24.4 WC - Nurse 2 - General Ulcer CM Notes Start: 02/11/24 08:55 Freq: Status: Active Protocol: Activity Type Activity Date Activity User E-sign Co-sign Detail Recorded Client Recorded Date Recorded By Document 02/11/24 09:13 [employer] Laptop 02/11/24 09:20 02/11/24 09:13 Wound Center Nurse 2 20-left lateral superior leg -Time 09:18 -Correct Patient Yes -Correct Side, Site, Position Yes -Correct Procedure Yes -Procedure Performed Yes -Type of Procedure Debridement -Clinical Debridement Subcutaneous -Tissue Removed Subcutaneous -Post Debridement (cm) - Length 7.0 -Post Debridement (cm) - Width 3.5 -Post Debridement (cm) - Depth 0.1 -Total Square (Post) (cm) 24.50 -Area of Debridement (cm) - Length 7.0 -Area of Debridement (cm) - Width 3.5 -Total Square (Area) (cm) 24.50 -Tunneling No -Undermining/Tunneling No -Circular Undermining No -Wound/Ulcer Outcome Not Healed -Ulcer Cleansing Rinsed/ Irrigated with Saline -Foul Odor after Cleansing No -Bioengineered Tissue No -Bleeding Controlled with Pressure -Treatment Response Procedure Tolerated Well -Offloading No -Debridement - Subq, 1st 20sq cm Yes -Debridement, SubQ, ea addt'l 20sq cm 1 or part thereof 13. 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 -Correct Patient No -Correct Side, Site, Position No -Correct Procedure No -Procedure Performed No -Post Debridement (cm) - Length 0.7 -Post Debridement (cm) - Width 1.0 -Post Debridement (cm) - Depth 0.1 -Total Square (Post) (cm) 0.70 -Area of Debridement (cm) - Length 0.7 -Area of Debridement (cm) - Width 1.0 -Total Square (Area) (cm) 0.70 -Wound/Ulcer Outcome Not Healed Pain Scale: 0-10 Numeric Is Patient Pain Free? Yes - Nurse 3 - General Ulcer D/C NN Start: 02/11/24 08:55 Freq: Status: Active Protocol: Activity Type Activity Date Activity User E-sign Co-sign Detail Recorded Client Recorded Date Recorded By Document 02/11/24 09:49 DL Desktop 02/11/24 09:51 DL 02/11/24 09:49 Wound Care Center Nurse 3 20-left lateral superior leg -Ulcer Cleansing Soap and Water -Foul Odor after Cleansing No -Primary Dressing Applied NonAdherent Contact Layer -Primary Dressing Covered/Secured with Dry Gauze & Roll Gauze, Secured with Tape -Other Covering ABD 13. 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 -Ulcer Cleansing Rinsed/ Irrigated with Saline -Foul Odor after Cleansing No -Primary Dressing Applied NonAdherent Contact Layer -Primary Dressing Covered/Secured with Dry Gauze & Roll Gauze -Other Covering ABD natalie -Tubular Bandage Double Layer -Size of Tubigrip Used Size E -Size E ($) 2 Treatment Response Procedure Tolerated Well Pain Scale: 0-10 Numeric Is Patient Pain Free? 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 Wound care to the left leg ulcers is adaptic topped with ABD daily after washing with soap and water. Compression - Double Tubigrip or Farrow wraps bilateral legs. Wound culture obtained of left leg ulcer on 04/02/23 which was positive for Staphylococcus aureus, Corynebacterium striatum and Anaerobic cocci, he completed the Augmentin. A wound culture was obtained on 11/14/22 of the upper chest/anterior shoulder ulcers which was positive for Staphylococcus aureus, Kocuria kristinae and Gram positive faraz. He has completed the Doxycycline. Keep legs elevated when sitting. Encouraged to sleep in a bed, but he has slept in a recliner for 30 years. He continues to see Dermatology. His biopsy results showed Bullous pemphigoid. Dermatology placed him Dupixent. Dermatology will be biopsying his right forehead painful, scabby lesion. Patient states he had to cancel his last appointment due to being ill. Follow up 4 weeks. Call or come in sooner if develop any concerns.
== END 2024-02-26 23:59 | disposition home or self-care (01) ==
LOC: WC 08:49
PROVIDERS: PCP Family Medicine; Referring Provider Nurse Practitioner Family; Visit Provider Nurse Practitioner Family
DX: L97.921 Non-pressure chronic ulcer of unspecified part of left lower leg limited to breakdown of skin (principal); L12.0 Bullous pemphigoid; R60.0 Localized edema; R54 Age-related physical debility; I12.9 Hypertensive chronic kidney disease with stage 1 through stage 4 chronic kidney disease, or unspecified chronic kidney disease; N18.2 Chronic kidney disease, stage 2 (mild); G47.33 Obstructive sleep apnea (adult) (pediatric); Z79.01 Long term (current) use of anticoagulants; Z86.711 Personal history of pulmonary embolism
CPT/HCPCS: 11042; 11045

== ENCOUNTER 2024-02-18 10:32 | Outpatient (RCR) | payer MEDICARE, MEDICAID, SELFPAY ==
--- NOTE | 2024-02-19 14:59 | HP.PTEVAL_ITS ---
Patient's Visit Information Visit Information Visit Information: BLANCA SHARMA I is a 79 year old M referred to Physical Therapy by Loan Sung MD with a diagnosis of DEBILITY. Date of Evaluation: 02/18/24 Physical Therapist: Miguelito Sierra PT, Cert MDT, OCS Visit Plan Frequency: 1 visits Plan: This patient will benefit from scooter to maintain optimal level of function to go to DR visits ,shopping and family. Patient poor score with CATSIBE and functional gait assessment which indicates high risk for falling and ambulates with cane 200 ft with 02 sats decreased along with comorbities influences patient condition. Patient power mobility will improve ability to participate in MRADLS.Patient has the mental and physical capabilities to operate scooter tiller. Thus scooter will maintain functional independence. Subjective Subjective: This 79 y/o male presents to physical therapy with scooter evaluation .Patient seen recommended PT . Patient has difficulty with extended gait and endurance. 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 CKD (chronic kidney disease) stage 3, GFR 30-59 ml/min Cellulitis leg, left Cellulitis of leg, right Core pulmonale Cor pulmonale, acute Core pu lmonale, chronic Edema of both legs Gout HTN (hypertension) Idiopathic chronic venous hypertension of left leg with ulcer Idiopathic chronic venous hypertension of right leg with ulcer Lower extremity edema Lymphedema Morbid obesity due to excess calories RAAD (obstructive sleep apnea)Obesity Pain in left leg Pain in right leg Polyclonal gammopathy Pulmonary artery hypertension Pulmonary embolism Pulmonary embolism Transient global amnesia Ulcer of right lower extremity with fat layer exposed Venous stasis dermatitis. Patient reports no falls . Patient able 1ble to walk < less than 200ft with SOB. Patient lives in apartment with one step. Tube /shower with grab bars . Patient has family does cooking and cleaning. Patient denies parastshia/tingling. Patient sleeping okay at night. Patient sleep in are recliner Patient goals to get a scooter. SOCIAL: lives alone Objective Objective: POSTURE: mild forward posture hips/knees flexed GAIT: reciprocal pattern 2 point gait with cane slow brian ~ 200 ft with Spo2 93% ,HR 83 beats , at rest Spo2 98% BALANCE: fair+ with cane AROM: supine knee flexion 5 -115 degrees ,BUE WFL MMT: quads/hams 4-/5 ,hip flexion 4-/5 , ankle 4/5 FLEXABLITY: hamstrings mod ,piriformis mod tight Balance/Special Test Scores Functional Gait Assessment Score: 7 % Disability: 76.6700 CATSIB Score (Max score 120 seconds): 35 Goals Goal 1:: Patient will benefit from scooter to maintain functional independence Rehabilitation Potential Physical Therapy Diagnosis: This patient will benefit from scooter to maintain optimal level of function to go to DR visits ,shopping and family. Patient poor score with CATSIBE and functional gait assessment which indicates high risk for falling and ambulates with cane 200 ft with 02 sats decreased along with comorbities influences patient condition. Patient power mobility will improve ability to participate in MRADLS.Patient has the mental and physical capabilitie s to operate scooter tiller. Thus scooter will maintain functional independence. Rehabilitation Potential: Good Anticipated Interventions Patient/Client Instruction: Educate patient on: Condition and Plan of Care For the Purpose of:: Other Other: scooter Text: Thank you for the opportunity to evaluate your patient. For Medicare and Medicare HMO plans, please review the plan of care and approve it. It will need to be FAXED BACK to us at [phone] for Medicare purposes. For Medicare only, by signing this I certify the plan of care. Please let me know if there are questions or concerns regarding this plan of care. Physician Signature: Date:
== END 2024-02-18 19:00 | disposition home or self-care (01) ==
LOC: PT 10:32
PROVIDERS: PCP Family Medicine; Referring Provider Family Medicine; Visit Provider Family Medicine
DX: R53.81 Other malaise (principal)
CPT/HCPCS: 97162

== ENCOUNTER 2024-03-10 08:43 | Outpatient (RCR) | payer MEDICARE, MEDICAID, SELFPAY ==
[2024-02-27 00:13] VITALS: BP 127/80; PULSE 66; RESP 20; TEMP 36.4; BMI 40.6
[2024-03-10 08:55] VITALS: BP 130/59; PULSE 66; RESP 18; TEMP 36.5; BMI 40.6
--- NOTE | 2024-03-10 09:45 | PCM.WC.PN ---
History of Present Illness Date of Service: 03/10/24 Chief Complaint: Superficial ulcers to bilateral lower legs History of Wound: Patient is a 78 year old male who has multiple skin lesions scattered over his chest, arms, hands and abdomen and legs. The initial skin lesions started from a bed bugs which were causing him to scratch. He was hospitalized at the end of August for sepsis and cellulitis. He was discharged to [facility]. He has since been discharged home and has home health from [facility]. He does admit to picking at the scabbing. He has not been consistently putting anything on these areas. He is on Warfarin for history of PE, also has a history of HTN, CKD II, anemia, RAAD, bilateral leg edema and debility. He was evaluated by Dermatology. His biopsy results showed Bullous pemphigoid. Dermatology placed him on steroids oral and cream and started him on Dupixent. Wound culture was obtained on 04/02/23 of his left leg ulcer which was positive for Staphylococcus aureus, Corynebacterium striatum and Anaerobic cocci. He was started on Augmentin. Today he denies fever, chills, nausea, vomiting. Progress of Wound: He has been seeing Dermatology for treatment with Dupixent to help with his Bullous pemphigoid. The left anterior leg and left posterior leg ulcers are healed. He has a small ulcer on left lateral superior leg with dry scabbing. His edema controlled with wearing the double tubigrips. He had the left forehead ulcer biopsied at the beginning of February and is waiting results. Objective Data Objective Data Vital Signs: Vital Signs Temp Pulse Resp BP O2 Del Method 97.7 F L 66 18 130/59 H Room Air 03/10/24 08:55 03/10/24 08:55 03/10/24 08:55 03/10/24 08:55 03/10/24 08:55 Oxygen Delivery Method Room Air Weight: 300 lb Body Mass Index (BMI) 40.6 Charges/Coding Visit Charges Office Visits / Consults: 27119 OV L3 Est 20min Physical Exam Const alert, oriented x3 and no apparent distress General Appearance: cooperative and comfortable Orientation / Consciousness: awake HEENT normocephalic Head and Scalp: atraumatic Eyes General Eye: normal appearance of both eyes Neck full ROM Resp normal respiratory effort, normal air movement and clear to auscultation bilaterally Effort and Inspection: able to speak in complete sentences Cardio regular rate and regular rhythm Peripheral Pulses: dorsalis pedis pulses present GI normal to inspection, nondistended, normoactive bowel sounds, soft to palpation and non-tender Back/Spine normal ROM Extremity normal capillary refill Skin Wound Narrative: Left superior anterior proximal leg ulcer is pink, it had dried scabbing surrounding it that was easily removed with some gauze. The left anterior leg ulcer is healed. today. Right forehead lesion has been biopsied and has band-aid covering it. Neuro oriented x3 and moves all extremities Psych mental status grossly normal and thought process normal Appearance: appropriate Debridement Note Debridement Note No debridement was completed: No debridement was completed today Post-Debridement Measurements and Additional Note: Post-Debridement Measurements/Treatment - Nurse 1 - General Ulcer Assessment Start: 03/10/24 08:55 Freq: Status: Active Protocol: WC.LOWEXT Activity Type Activity Date Activity User E-sign Co-sign Detail Recorded Client Recorded Date Recorded By Document 03/10/24 08:55 [facility] Desktop 03/10/24 09:05 [facility] 03/10/24 08:55 - Today's Visit Information Type of service Follow-up Visit (Physician/[employer] ) Arrival Mode Ambulatory,Cane Transfer Assistance None Accompanied by daughter Patient Identification Verified (Name & Yes ) Patient Requires Transmission-Based No Precautions Height and Weight Body Mass Index (BMI) 40.6 BMI Classification Obese Vital Signs Temperature (97.8 F-99.1 F) 97.7 F L Temperature Source Temporal Pulse Rate (60-100) 66 Pulse Location Monitor Respiratory Rate (12-18) 18 Respiratory rate source Observation Oxygen Delivery Method Room Air Blood Pressure (90/60-120/80) 130/59 H Blood Pressure Mean (mm Hg) 82 Source Monitor Position Sitting Blood Pressure Location Left Arm History Since Last Visit- (Skip if this is Patient's initial visit) Have you changed medications since your No last visit? Any new allergies or adverse reactions No Had a fall/change in ADL's that may No increase risk of falls Signs or symptoms of abuse and/or No neglect since last visit Have you been in the hospital since your No last visit? Has dressing in place as prescribed Yes Has compression in place as prescribed Yes Has offloadiing in place as prescribed N/A Experienced any changes in pain level or No management Left Footwear Diabetic Shoe Right Footwear Diabetic Shoe Pain Scale: 0-10 Numeric Is Patient Pain Free? Yes WC - Nurse 1 - General Ulcer Measurement Start: 03/10/24 08:55 Freq: Status: Active Protocol: Activity Type Activity Date Activity User E-sign Co-sign Detail Recorded Client Recorded Date Recorded By Document 03/10/24 08:55 [facility] Desktop 03/10/24 09:05 [facility] 03/10/24 08:55 Wound Center Nurse 1 13. 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 -Combined with other wound No -Current Size (cm) - Length 0.1 -Current Size (cm) - Width 0.1 -Current Size (cm) - Depth 0.1 -Total Square Cm 0.01 -Epithelialization Large 67-100% -Temperature (Uyen-wound Skin No Abnormality Appearance) (Pt Warm) -Tenderness on Palpation (Uyen-wound No Skin Appearance) -Ulcer Cleansing Rinsed/ Irrigated with Saline -Foul Odor after Cleansing No 20-left lateral superior leg -Combined with other wound No -Current Size (cm) - Length 1.3 -Current Size (cm) - Width 1 -Current Size (cm) - Depth 0.1 -Total Square Cm 1.3 -Epithelialization Small 1-33% -Tunneling No -Undermining/Tunneling No -Circular Undermining No -Exudate Amt Medium -Exudate Type Serosanguineous -Wound Margin Distinct, Outline Attached -Granulation Amt Medium (34-66%) -Granulation Quality Red -Slough/Fibrin Yes -Necrosis Amt Medium (34-66%) -Necrotic Tissue Type Adherent Slough -Texture (Uyen-wound Skin Appearance) Assessed -Moisture (Uyen-wound Skin Appearance) Assessed -Color (Uyen-wound Skin Appearance) Assessed -Temperature (Uyen-wound Skin No Abnormality Appearance) (Pt Warm) -Tenderness on Palpation (Uyen-wound No Skin Appearance) -Ulcer Cleansing Rinsed/ Irrigated with Saline -Foul Odor after Cleansing No -Anesthetic Used 4% Lidocaine Solution Lower Limb Edema Present Yes Left Calf (cm) 49.1 Left Ankle (cm) 25.3 WC - Nurse 2 - General Ulcer CM Notes Start: 03/10/24 08:55 Freq: Status: Active Protocol: Activity Type Activity Date Activity User E-sign Co-sign Detail Recorded Client Recorded Date Recorded By Document 03/10/24 09:14 DS Desktop 03/10/24 09:18 DS Edit Result 03/10/24 09:14 DS (1) [id number] 03/10/24 09:38 DS (1) 20-left lateral superior leg - Correct Patient Yes => No - Correct Side, Site, Position Yes => No - Correct Procedure Yes => No - Procedure Performed Yes => No - Type of Procedure Debridement => - Clinical Debridement Epidermis / Dermis => - Tissue Removed Epidermis,Dermis => - Debridement - Open, 1st 20sq cm Yes => 03/10/24 09:14 Wound Center Nurse 2 13. 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 -Post Debridement (cm) - Length 0 -Post Debridement (cm) - Width 0 -Post Debridement (cm) - Depth 0 -Total Square (Post) (cm) 0 -Area of Debridement (cm) - Length 0 -Area of Debridement (cm) - Width 0 -Total Square (Area) (cm) 0 -Wound/Ulcer Outcome Healed- Epithelialized 20-left lateral superior leg -Time 09:16 -Correct Patient No -Correct Side, Site, Position No -Correct Procedure No -Procedure Performed No -Post Debridement (cm) - Length 1.2 -Post Debridement (cm) - Width 1.2 -Post Debridement (cm) - Depth 0.1 -Total Square (Post) (cm) 1.44 -Area of Debridement (cm) - Length 1.2 -Area of Debridement (cm) - Width 1.2 -Total Square (Area) (cm) 1.44 -Wound/Ulcer Outcome Not Healed -Ulcer Cleansing Rinsed/ Irrigated with Saline -Bleeding Controlled with Pressure -Treatment Response Procedure Tolerated Well Pain Scale: 0-10 Numeric Is Patient Pain Free? Yes WC - Nurse 3 - General Ulcer D/C NN Start: 03/10/24 08:55 Freq: Status: Active Protocol: Activity Type Activity Date Activity User E-sign Co-sign Detail Recorded Client Recorded Date Recorded By Document 03/10/24 09:29 [facility] Desktop 03/10/24 09:30 [facility] 03/10/24 09:29 Wound Care Center Nurse 3 20-left lateral superior leg -Ulcer Cleansing Rinsed/ Irrigated with Saline -Foul Odor after Cleansing No -Primary Dressing Applied NonAdherent Contact Layer -Other Dressing abd -Primary Dressing Covered/Secured with Dry Gauze & Roll Gauze, Secured with Tape ble -Tubular Bandage Single Layer -Size of Tubigrip Used Size E -Size E ($) 2 -Other hcs brand Treatment Response Procedure Tolerated Well Pain Scale: 0-10 Numeric Is Patient Pain Free? 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 No debridement done today besides removing dry non viable tissue from around the left superior leg ulcer with gauze. Wound care to the left leg ulcer is adaptic topped with gauze or ABD daily after washing with soap and water. Compression - Double Tubigrip or Farrow wraps bilateral legs. Wound culture obtained of left leg ulcer on 04/02/23 which was positive for Staphylococcus aureus, Corynebacterium striatum and Anaerobic cocci, he completed the Augmentin. A wound culture was obtained on 11/14/22 of the upper chest/anterior shoulder ulcers which was positive for Staphylococcus aureus, Kocuria kristinae and Gram positive faraz. He has completed the Doxycycline. Keep legs elevated when sitting. Encouraged to sleep in a bed, but he has slept in a recliner for 30 years. He continues to see Dermatology. His biopsy results showed Bullous pemphigoid. Dermatology placed him Dupixent. Dermatology biopsied his right forehead lesion, waiting on pathology. Follow up 4 weeks. Call or come in sooner if develop any concerns.
== END 2024-03-28 23:59 | disposition home or self-care (01) ==
LOC: WC 08:43
PROVIDERS: PCP Family Medicine; Referring Provider Nurse Practitioner Family; Visit Provider Nurse Practitioner Family
DX: L97.921 Non-pressure chronic ulcer of unspecified part of left lower leg limited to breakdown of skin (principal); L12.0 Bullous pemphigoid; N18.2 Chronic kidney disease, stage 2 (mild); I12.9 Hypertensive chronic kidney disease with stage 1 through stage 4 chronic kidney disease, or unspecified chronic kidney disease; G47.33 Obstructive sleep apnea (adult) (pediatric); Z79.01 Long term (current) use of anticoagulants; Z86.711 Personal history of pulmonary embolism; R54 Age-related physical debility; R60.0 Localized edema
CPT/HCPCS: 97597; 99213; G0463

== ENCOUNTER 2024-03-19 10:52 | Outpatient (RCR) | payer MEDICARE, MEDICAID, SELFPAY ==
--- NOTE | 2024-04-15 10:19 | HP.FCE ---
Task Lift Floor (Occasional 1-33% of Day): 35 Floor (Frequent 34-66% of Day): 17.5 Floor (Constant 67-100% of Day): 7.36 Floor PDL: Light-Medium Knee (Occasional 1-33% of Day): 40 Knee (Frequent 34-66% of Day): 20 Knee (Constant 67-100% of Day): 8.42 Knee PDL: Light-Medium Waist (Occasional 1-33% of Day): 40 Waist (Frequent 34-66% of Day): 20 Waist (Constant 67-100% of Day): 8.42 Waist PDL: Light-Medium Shoulder (Occasional 1-33% of Day): 35 Shoulder (Frequent 34-66% of Day): 17.5 Shoulder (Constant 67-100% of Day): 7.36 Shoulder PDL: Light-Medium Overhead (Occasional 1-33% of Day): 30 Overhead (Frequent 34-66% of Day): 15 Overhead (Constant 67-100% of Day): 6.31 Overhead PDL: Light Comments: this performance indicates floor lift, knee lift, waist lift, shoulder lift physical performance ability is light- medium and overhead physical performance ability is light. Work Activity/Posture Bending: Frequent Ability (34-66% of day) Comments: with RBs and elevated HR and occ dropping 02 Squatting: No Ablility (0% of day) Kneeling: No Ablility (0% of day) Reaching out: Frequent Ability (34-66% of day) Comments: with RBs and elevated HR occ dropping 02 Reaching up: Frequent Ability (34-66% of day) Comments: with RBs and elevated HR and occ dropping 02 Sitting: Frequent Ability (34-66% of day) Walking: Occasional Ability (1-33% of day) Comments: walks with cane unsteady Standing: Occasional Ability (1-33% of day) Comments: stand for approx 2 min durations Reference Reference: Duration Sedentary Sedentary Light Light Light Medium Medium Medium Heavy Very Heavy Heavy Occasional (0-33% of day) Frequent (34-66% of day) Constant (67-100% of day) 10 # Negligible Negligible 15 # 8 # Negligible 20 # 10# Negli. 35 # 18 # 7 # 50 # 25 # 10 # 75 # 100 # >100 # 38 # 50 # >50 # 15 # 20 # >20 # Patient Information Height: 6 ft Weight:: 136.078 kg Hand Dominance: R Medical History Medical History Including Restrictions: This 79 year old male presents this date for order for completion of Functional Capacity Evaluation. Pt states he has some sort of disease which results in blisters of B feet pt daughter assist pt in wrapping BLEs every other day. Pt denies much history past medical received from chart. HTN as well as obesity, PE and lymphedema cellulitis gout of toes, RAAD, polyclonal gammopathy. Pt currently uses cane for mobility for past 2 years. pt began using due to hips, knee, ankles shot in which he denied sx for. pt does report decreased dexterity of B hands however denies sensation issues. pt is [place] of L ear. As a result of the aboev impairments pt main concern is ability to stand and walk far distances. Diagnoses Diagnoses: Debility Symptoms Symptoms: decreased balance using cane for mobility need for frequent seated RBs elevated HR and dropping 02 with sustained activity Pain Pain: denies pain reports occ discomfort in B LEs Work History Work History: worked 20 years for [employer] for [employer] for 25 years Behavioral Behavioral: pleasant and cooperative throughout making jokes positive attitude ADLS ADLS: Pt states he lives in apartment alone which is on ground floor no need to manage stairs. pt reports if he has to do stairs in the community he goes up side ways and then backwards down the steps-- pt however does not need to manage steps on a day to day basis. Pt is I in self care abilities as well as IADL tasks will occ receive assist from family however reports he is able to do as needed. pt bathroom with tub shower combo no seat does have grab bars inside and outside of tub. standard commode. does not use cane in apartment does furniture walk. uses cane in community. Daughter will assist with grocery shopping and driving as needed. Physical Examination Physical Examination: forward rounded posture in sitting LLE externally rotated in stand and during walking baseline HR 81bpm and baseline 02 level 95% sitting at rest ROM: BUE AROM WFL BLE AROM WFL pt BLEs are wrapped causing slight limitations in ROM Strength: L shoulder flexion 20.2# R shoulder flexion 24.3# L elbow flexion 38.3# R elbow flexion 37.1# L tricep 26.3# R tricep 22.6# L hip flexion 21# R hip flexion 25# L quad 21# R quad 21# L hamstring 24.2# R hamstring 18.6# Right Mail Service Coordinator Strength Average: 65.00 Right Mail Service Coordinator Strength Percentile: 25-50th percentile Left Mail Service Coordinator Strength Average: 53.33 Left Mail Service Coordinator Strength Percentile: 10-25th percentile Right Lateral Pinch Average: 13.00 Right Lateral Pinch Percentile: 10th percentile Left Lateral Pinch Average: 8.00 Left Lateral Pinch Percentile: < 10th percentile Right Tripod Pinch Average: 9.00 Right Tripod Pinch Percentile: <10th percentile Left Tripod Pinch Average: 2.00 Left Tripod Pinch Percentile: <10th percentile Comments: Mail Service Coordinator norms taken from Journal of Orthopedic and Sport Injury due to Journal of Hand Therapy article not providing norms for ages over 64 years Sensation: denies numbness or tingling anywhere Fine Motor: 9 hole peg assessment L hand 35 sec indicating pt is 0-10th percentile for age and gender R hand 33 sec indicating pt is 0-10th percentile for age and gender Balance: standing forward reach 13 indicating pt is mild risk for falls average for pts age is 13.2 plus/minus 1.6 Non Material Handling Activities Bendin times: 33 10 times at own pace: 08/07 HR 113 bpm 02 92% 10x fast: 08/07 hold onto desk for external support HR 99 bpm and 02 97% denies pain during task Squatting: pt does not squat on day to day basis-- per pt he as not squatted in over 20+ years unable due to B knees -- states they wanted me to replace my knees a long time ago and I chose not to Kneeling: pt does not kneel on day to day basis - pt states he has not kneeling in many years unable due to B knees see above Reaching out/up: reaching out: 3 times: 3/3 10x at own pace: 08/07 10x rapidly: 08/07 performs with uncoordinated jerky movements HR 94 bpm and 02 drop to 77% with cues for PLB rises back to 92% within 30 sec to 1 min reacing up: 3x: 3/3 10x at own pace: 08/07 10x rapidly: 08/07 HR 116 bpm 02 95% denies pain during reaching up or out Walking: walking from [facility] area to therapy desk with cane in L hand pt reports that is as far as he is able to go without taking a seated RB ~214 feet. walks with L LE externally rotated Standing: pt reports about 2 min in stand before need to sit for RB due to feeling weak and SOB pt demonstrates the ability to remain standing during FCE for approx 2-3 min before sitting. denies pain reports he sits due to weakness and SOB. Sitting: able to sit for intake of history approx 40 min no c/o of discomfort able to remain sitting for longer period of time. does not demonstrate frequent changes of position appears content no distress. Climbing Stairs: does not complete on normal basis unable to do on FCE at this date pt reports unsafe manner of coming down steps backwards reports ability to do on 1x a week basis however is a struggle for him and needs to sit directly afterwards. Dynamic Occasional Lifting Capacity Floor Lift: box (15 pounds) + 20 pounds overall 35 pounds from floor level knees bent good form HR 111bpm and 02 95% Knee Lift: box (15 pounds) + 25 pounds overall 40 pounds HR 89 bpm and 02 93% Waist Lift: box (15 pounds) + 25 pounds overall 40 pounds HR 127 bpm 02 95% hold load close to body does not twist at waist good form Shoulder Lift: box (15 pounds) + 20 pounds overall 35 pounds HR 108 bpm 02 97% denies pain Overhead Lift: box (15 pounds) + 15 pounds overall 30 pounds HR 123 bpm 02 96% hold load close to body unsteadiness with fast jerky movement during lift denies pain Carrying: box (15 pounds) + 10 pounds overall 25 pounds carry from filing cabinet to OT desk in back of room ~ 26 feet does not need to use cane during carry task HR 118 bpm 02 96% denies pain however does not believe he could have added weight or carried any further Comments: pt does sit between each different lift task and HR rises after lifts need for recovery. occ compensatory movements during lifts
== END 2024-03-19 19:00 | disposition home or self-care (01) ==
LOC: OT 10:52
PROVIDERS: PCP Family Medicine; Referring Provider Family Medicine; Visit Provider Family Medicine
DX: R53.81 Other malaise (principal)
CPT/HCPCS: 97750

== ENCOUNTER 2024-04-07 08:54 | Outpatient (RCR) | payer MEDICARE, MEDICAID, SELFPAY ==
[2024-03-29 01:39] VITALS: BP 127/80; PULSE 66; RESP 20; TEMP 36.4; BMI 40.6
[2024-04-07 09:06] VITALS: BP 118/62; PULSE 68; RESP 20; TEMP 36.2; BMI 40.6
--- NOTE | 2024-04-07 11:57 | PCM.WC.PN ---
History of Present Illness Date of Service: 04/07/24 Chief Complaint: Superficial ulcers to bilateral lower legs History of Wound: Patient is a 78 year old male who has multiple skin lesions scattered over his chest, arms, hands and abdomen and legs. The initial skin lesions started from a bed bugs which were causing him to scratch. He was hospitalized at the end of August for sepsis and cellulitis. He was discharged to [facility]. He has since been discharged home and has home health from [facility]. He does admit to picking at the scabbing. He has not been consistently putting anything on these areas. He is on Warfarin for history of PE, also has a history of HTN, CKD II, anemia, RAAD, bilateral leg edema and debility. He was evaluated by Dermatology. His biopsy results showed Bullous pemphigoid. Dermatology placed him on steroids oral and cream and started him on Dupixent. Wound culture was obtained on 04/02/23 of his left leg ulcer which was positive for Staphylococcus aureus, Corynebacterium striatum and Anaerobic cocci. He was started on Augmentin. Today he denies fever, chills, nausea, vomiting. Progress of Wound: He has been seeing Dermatology for treatment with Dupixent to help with his Bullous pemphigoid. He has a small ulcer cluster on left lateral leg that is pink and superficial. His edema controlled with wearing the double tubigrips. 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 Objective Data Objective Data Vital Signs: Vital Signs Temp Pulse Resp BP 97.2 F L 68 20 H 118/62 04/07/24 09:06 04/07/24 09:06 04/07/24 09:06 04/07/24 09:06 Weight: 300 lb Body Mass Index (BMI) 40.6 Charges/Coding Addendum Addendum: selective debridement [id number] Physical Exam Const alert, oriented x3 and no apparent distress General Appearance: cooperative and comfortable Orientation / Consciousness: awake HEENT normocephalic Head and Scalp: atraumatic Eyes General Eye: normal appearance of both eyes Neck full ROM Resp normal respiratory effort, normal air movement and clear to auscultation bilaterally Effort and Inspection: able to speak in complete sentences Cardio regular rate and regular rhythm Peripheral Pulses: dorsalis pedis pulses present GI normal to inspection, nondistended, normoactive bowel sounds, soft to palpation and non-tender Back/Spine normal ROM Extremity normal capillary refill Skin Wound Narrative: Left lateral leg cluster is pink and superificial. Right forehead lesion is dry and scabby, it is stable. Neuro oriented x3 and moves all extremities Psych mental status grossly normal and thought process normal Appearance: appropriate Debridement Note Debridement Note Wound debrided: lateral leg cluster Laterality: Left Wound Grade/Stage: stage II Type of Debridement: Selective debridement Anesthesia Used: 5% Lidocaine Gel Depth: Down to and including healthy tissue Percentage of wound debrided: 100 Tissue Removed: Moist gauze used to debrided non viable tissue and slough Severity: Limited To Skin Breakdown Amount of bleeding with debridement: Mild Bleeding Controlled with: Compression and gauze Patient tolerated procedure: Patient tolerated procedure well Debridement Free Text: Used moistened gauze to lightly remove non viable tissue and slough Post-Debridement Measurements and Additional Note: Post-Debridement Measurements/Treatment - Nurse 1 - General Ulcer Assessment Start: 04/07/24 09:06 Freq: Status: Active Protocol: [email or web address].LOWTHOMAST Activity Type Activity Date Activity User E-sign Co-sign Detail Recorded Client Recorded Date Recorded By Document 04/07/24 09:06 DL [id number] 04/07/24 09:12 DL 04/07/24 09:06 - Today's Visit Information Type of service Follow-up Visit (Physician/[employer] ) Arrival Mode Ambulatory,Cane Transfer Assistance None Patient Identification Verified (Name & Yes ) Patient Requires Transmission-Based No Precautions Height and Weight Body Mass Index (BMI) 40.6 BMI Classification Obese Vital Signs Temperature (97.8 F-99.1 F) 97.2 F L Temperature Source Temporal Pulse Rate (60-100) 68 Pulse Location Monitor Respiratory Rate (12-18) 20 H Respiratory rate source Observation Blood Pressure (90/60-120/80) 118/62 Blood Pressure Mean (mm Hg) 80 Source Monitor History Since Last Visit- (Skip if this is Patient's initial visit) Have you changed medications since your No last visit? Any new allergies or adverse reactions No Had a fall/change in ADL's that may No increase risk of falls Signs or symptoms of abuse and/or No neglect since last visit Have you been in the hospital since your No last visit? Has dressing in place as prescribed Yes Has compression in place as prescribed Yes Has offloadiing in place as prescribed N/A Experienced any changes in pain level or No management Pain Scale: 0-10 Numeric Is Patient Pain Free? Yes WC - Nurse 1 - General Ulcer Measurement Start: 04/07/24 09:06 Freq: Status: Active Protocol: Activity Type Activity Date Activity User E-sign Co-sign Detail Recorded Client Recorded Date Recorded By Document 04/07/24 09:06 DL ..25.7 04/07/24 09:12 DL 04/07/24 09:06 Wound Center Nurse 1 20-left lateral superior leg -Current Size (cm) - Length 5 -Current Size (cm) - Width 1.2 -Current Size (cm) - Depth 0.1 -Total Square Cm 6.0 -Exudate Amt Small -Exudate Type Sanguineous -Wound Margin Indistinct, Non -Visible -Granulation Amt Large (67-100%) -Granulation Quality Red -Necrosis Amt None Present (0 %) -Structure Exposed N/A -Texture (Uyen-wound Skin Appearance) Scarring -Moisture (Uyen-wound Skin Appearance) No Abnormality -Color (Uyen-wound Skin Appearance) No Abnormality -Temperature (Uyen-wound Skin No Abnormality Appearance) (Pt Warm) -Tenderness on Palpation (Uyen-wound No Skin Appearance) -Ulcer Cleansing Soap and Water -Foul Odor after Cleansing No -Anesthetic Used 5% Lidocaine Gel Left Calf (cm) 46 Left Ankle (cm) 25.5 WC - Nurse 2 - General Ulcer CM Notes Start: 04/07/24 09:06 Freq: Status: Active Protocol: Activity Type Activity Date Activity User E-sign Co-sign Detail Recorded Client Recorded Date Recorded By Document 04/07/24 09:38 BMF [id number] 04/07/24 09:44 BMF Edit Result 04/07/24 09:38 BMF (1) [id number] 04/07/24 11:47 BMF (1) 20-left lateral superior leg - Time => 11:45 - Correct Patient => Yes - Correct Side, Site, Position => Yes - Correct Procedure => Yes - Procedure Performed => Yes - Type of Procedure => Debridement - Clinical Debridement => Epidermis / Dermis - Tissue Removed => Epidermis,Dermis - Debridement - Open, 1st 20sq cm => Yes 04/07/24 09:38 Wound Center Nurse 2 20-left lateral superior leg -Time 11:45 -Correct Patient Yes -Correct Side, Site, Position Yes -Correct Procedure Yes -Procedure Performed Yes -Type of Procedure Debridement -Clinical Debridement Epidermis / Dermis -Tissue Removed Epidermis, Dermis -Post Debridement (cm) - Length 7.2 -Post Debridement (cm) - Width 2.2 -Post Debridement (cm) - Depth 0.1 -Total Square (Post) (cm) 15.84 -Area of Debridement (cm) - Length 7.2 -Area of Debridement (cm) - Width 2.2 -Total Square (Area) (cm) 15.84 -Tunneling No -Undermining/Tunneling No -Circular Undermining No -Wound/Ulcer Outcome Not Healed -Ulcer Cleansing Rinsed/ Irrigated with Saline -Foul Odor after Cleansing No -Bioengineered Tissue No -Bleeding Controlled with Pressure -Treatment Response Procedure Tolerated Well -Debridement - Open, 1st 20sq cm Yes Pain Scale: 0-10 Numeric Is Patient Pain Free? Yes - Nurse 3 - General Ulcer D/C NN Start: 04/07/24 09:06 Freq: Status: Active Protocol: Activity Type Activity Date Activity User E-sign Co-sign Detail Recorded Client Recorded Date Recorded By Document 04/07/24 09:54 wound center 04/07/24 09:55 04/07/24 09:54 Wound Care Center Nurse 3 20-left lateral superior leg -Primary Dressing Applied NonAdherent Contact Layer -Primary Dressing Covered/Secured with Dry Gauze & Roll Gauze, Secured with Tape ble -Tubular Bandage Double Layer -Size of Tubigrip Used Size E -Size E ($) 2 Right -Tubular Bandage Double Layer -Size of Tubigrip Used Size E -Size E ($) 2 Left -Tubular Bandage Double Layer -Size of Tubigrip Used Size E -Size E ($) 2 Pain Scale: 0-10 Numeric Is Patient Pain Free? 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 No debridement done today besides removing dry non viable tissue from around the left superior leg ulcer with gauze. Wound care to the left leg ulcer cluster is adaptic topped with gauze or ABD daily after washing with soap and water. Compression - Double Tubigrip or Farrow wraps bilateral legs. Wound culture obtained of left leg ulcer on 04/02/23 which was positive for Staphylococcus aureus, Corynebacterium striatum and Anaerobic cocci, he completed the Augmentin. A wound culture was obtained on 11/14/22 of the upper chest/anterior shoulder ulcers which was positive for Staphylococcus aureus, Kocuria kristinae and Gram positive faraz. He has completed the Doxycycline. Keep legs elevated when sitting. Encouraged to sleep in a bed, but he has slept in a recliner for 30 years. He continues to see Dermatology. His biopsy results showed Bullous pemphigoid. Dermatology placed him Dupixent. Dermatology biopsied his right forehead lesion showed squamous cell carcinoma. He is having Moh's surgery the end of March to remove this lesion. Follow up 4 weeks. Call or come in sooner if develop any concerns.
== END 2024-04-27 23:59 | disposition home or self-care (01) ==
LOC: WC 08:54
PROVIDERS: PCP Family Medicine; Referring Provider Nurse Practitioner Family; Visit Provider Nurse Practitioner Family
DX: L97.821 Non-pressure chronic ulcer of other part of left lower leg limited to breakdown of skin (principal); L12.0 Bullous pemphigoid; R60.0 Localized edema; I12.9 Hypertensive chronic kidney disease with stage 1 through stage 4 chronic kidney disease, or unspecified chronic kidney disease; C44.329 Squamous cell carcinoma of skin of other parts of face; G47.33 Obstructive sleep apnea (adult) (pediatric); N18.2 Chronic kidney disease, stage 2 (mild); R54 Age-related physical debility
CPT/HCPCS: 97597

== ENCOUNTER 2024-05-05 09:12 | Outpatient (RCR) | payer MEDICARE, MEDICAID, SELFPAY ==
[2024-04-28 00:40] VITALS: BP 127/80; PULSE 66; RESP 20; TEMP 36.4; BMI 40.6
[2024-05-05 09:40] VITALS: BP 101/81; PULSE 71; RESP 16; TEMP 36.4; BMI 40.6
--- NOTE | 2024-05-05 12:23 | PCM.WC.PN ---
History of Present Illness Date of Service: 05/05/24 Chief Complaint: Superficial ulcers to bilateral lower legs History of Wound: Patient is a 78 year old male who has multiple skin lesions scattered over his chest, arms, hands and abdomen and legs. The initial skin lesions started from a bed bugs which were causing him to scratch. He was hospitalized at the end of August for sepsis and cellulitis. He was discharged to [facility]. He has since been discharged home and has home health from [facility]. He does admit to picking at the scabbing. He has not been consistently putting anything on these areas. He is on Warfarin for history of PE, also has a history of HTN, CKD II, anemia, RAAD, bilateral leg edema and debility. He was evaluated by Dermatology. His biopsy results showed Bullous pemphigoid. Dermatology placed him on steroids oral and cream and started him on Dupixent. Wound culture was obtained on 04/02/23 of his left leg ulcer which was positive for Staphylococcus aureus, Corynebacterium striatum and Anaerobic cocci. He was started on Augmentin. Today he denies fever, chills, nausea, vomiting. Progress of Wound: He has been seeing Dermatology for treatment with Dupixent to help with his Bullous pemphigoid. He has a small ulcer cluster on left lateral leg and left posterior leg that is pink and superficial. His edema controlled with wearing the double tubigrips. 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 He had the sutures removed by home health last week. There are several sutures remaining that were missed, they were easily removed. Forehead flap is healing well, no compromise present. Objective Data Objective Data Vital Signs: Vital Signs Temp Pulse Resp BP O2 Del Method 97.6 F L 71 16 101/81 H Room Air 05/05/24 09:40 05/05/24 09:40 05/05/24 09:40 05/05/24 09:40 05/05/24 09:40 Oxygen Delivery Method Room Air Weight: 300 lb Body Mass Index (BMI) 40.6 Charges/Coding Addendum Addendum: selective debridement 48440 Debridement Note Debridement Note Wound debrided: lateral leg and left posterior leg ulcers Laterality: Left Wound Grade/Stage: stage II Type of Debridement: Selective debridement Anesthesia Used: 5% Lidocaine Gel Depth: Down to and including healthy tissue Percentage of wound debrided: 100 Tissue Removed: Moist gauze used to debrided non viable tissue and slough Severity: Limited To Skin Breakdown Amount of bleeding with debridement: Mild Bleeding Controlled with: Compression and gauze Patient tolerated procedure: Patient tolerated procedure well Debridement Free Text: Used moistened gauze to lightly remove non viable tissue and slough Post-Debridement Measurements and Additional Note: Post-Debridement Measurements/Treatment - Nurse 1 - General Ulcer Assessment Start: 05/05/24 09:40 Freq: Status: Active Protocol: DORY Activity Type Activity Date Activity User E-sign Co-sign Detail Recorded Client Recorded Date Recorded By Document 05/05/24 09:40 [facility] [id number] 05/05/24 09:47 BM 05/05/24 09:40 WC - Today's Visit Information Type of service Follow-up Visit (Physician/MILL MANAGER ) Arrival Mode Ambulatory,Cane Transfer Assistance None Accompanied by daughter Patient Identification Verified (Name & Yes ) Patient Requires Transmission-Based No Precautions Height and Weight Body Mass Index (BMI) 40.6 BMI Classification Obese Vital Signs Temperature (97.8 F-99.1 F) 97.6 F L Temperature Source Temporal Pulse Rate (60-100) 71 Pulse Location Monitor Respiratory Rate (12-18) 16 Respiratory rate source Observation Oxygen Delivery Method Room Air Blood Pressure (90/60-120/80) 101/81 H Blood Pressure Mean (mm Hg) 87 Source Monitor Position Sitting Blood Pressure Location Left Arm History Since Last Visit- (Skip if this is Patient's initial visit) Have you changed medications since your No last visit? Any new allergies or adverse reactions No Had a fall/change in ADL's that may No increase risk of falls Signs or symptoms of abuse and/or No neglect since last visit Have you been in the hospital since your No last visit? Has dressing in place as prescribed Yes Has compression in place as prescribed Yes Has offloadiing in place as prescribed N/A Experienced any changes in pain level or No management Left Footwear Regular Shoe Right Footwear Regular Shoe Pain Scale: 0-10 Numeric Is Patient Pain Free? Yes SIMON Harrington Nurse 1 - General Ulcer Measurement Start: 05/05/24 09:40 Freq: Status: Active Protocol: Activity Type Activity Date Activity User E-sign Co-sign Detail Recorded Client Recorded Date Recorded By Document 05/05/24 09:40 [facility] [id number] 05/05/24 09:47 [facility] 05/05/24 09:40 Wound Center Nurse 1 #21- L CALF -Combined with other wound No -Current Size (cm) - Length 1.2 -Current Size (cm) - Width 1.2 -Current Size (cm) - Depth 0.1 -Total Square Cm 1.44 -Date of Last Picture (Recall this 05/05/24 field) -Photo Taken Yes -Tunneling No -Undermining/Tunneling No -Circular Undermining No -Exudate Amt Medium -Exudate Type Serosanguineous -Wound Margin Distinct, Outline Attached -Granulation Amt Large (67-100%) -Granulation Quality Red -Slough/Fibrin No -Necrosis Amt None Present (0 %) -Texture (Uyen-wound Skin Appearance) Assessed, Scarring -Moisture (Uyen-wound Skin Appearance) Assessed,Dry/ Scaly -Color (Uyen-wound Skin Appearance) Assessed -Temperature (Uyen-wound Skin No Abnormality Appearance) (Pt Warm) -Tenderness on Palpation (Uyen-wound No Skin Appearance) -Ulcer Cleansing Rinsed/ Irrigated with Saline -Foul Odor after Cleansing No -Anesthetic Used 5% Lidocaine Gel 20-left lateral superior leg -Combined with other wound No -Current Size (cm) - Length 0.8 -Current Size (cm) - Width 0.9 -Current Size (cm) - Depth 0.1 -Total Square Cm 0.72 -Date of Last Picture (Recall this 05/05/24 field) -Photo Taken Yes -Epithelialization Small 1-33% -Tunneling No -Undermining/Tunneling No -Circular Undermining No -Exudate Amt Medium -Exudate Type Serosanguineous -Wound Margin Distinct, Outline Attached -Granulation Amt Large (67-100%) -Granulation Quality Red -Slough/Fibrin No -Necrosis Amt None Present (0 %) -Texture (Uyen-wound Skin Appearance) Assessed, Scarring -Moisture (Uyen-wound Skin Appearance) Assessed,Dry/ Scaly -Color (Uyen-wound Skin Appearance) Assessed -Temperature (Uyen-wound Skin No Abnormality Appearance) (Pt Warm) -Tenderness on Palpation (Uyen-wound No Skin Appearance) -Ulcer Cleansing Rinsed/ Irrigated with Saline -Foul Odor after Cleansing No -Anesthetic Used 5% Lidocaine Gel Lower Limb Edema Present Yes Left Calf (cm) 52 Left Ankle (cm) 29 WC - Nurse 2 - General Ulcer CM Notes Start: 05/05/24 09:40 Freq: Status: Active Protocol: Activity Type Activity Date Activity User E-sign Co-sign Detail Recorded Client Recorded Date Recorded By Document 05/05/24 09:59 JF 00 05/05/24 10:06 JF Edit Result 05/05/24 09:59 JF (1) 00 05/05/24 10:10 JF (1) #21- L CALF - Clinical Debridement Subcutaneous => Epidermis / Dermis - Tissue Removed Subcutaneous => Epidermis,Dermis - Debridement - Open, 1st 20sq cm => No - Debridement - Subq, 1st 20sq cm No => 20-left lateral superior leg - Clinical Debridement Subcutaneous => Epidermis / Dermis - Tissue Removed Subcutaneous => Epidermis,Dermis - Debridement - Open, 1st 20sq cm => Yes - Debridement - Subq, 1st 20sq cm Yes => 05/05/24 09:59 Wound Center Nurse 2 #21- L CALF -Time 10:03 -Correct Patient Yes -Correct Side, Site, Position Yes -Correct Procedure Yes -Procedure Performed Yes -Type of Procedure Debridement -Clinical Debridement Epidermis / Dermis -Tissue Removed Epidermis, Dermis -Post Debridement (cm) - Length 1.3 -Post Debridement (cm) - Width 1.5 -Post Debridement (cm) - Depth 0.1 -Total Square (Post) (cm) 1.95 -Area of Debridement (cm) - Length 1.3 -Area of Debridement (cm) - Width 1.5 -Total Square (Area) (cm) 1.95 -Tunneling No -Undermining/Tunneling No -Circular Undermining No -Wound/Ulcer Outcome Not Healed -Ulcer Cleansing Rinsed/ Irrigated with Saline -Foul Odor after Cleansing No -Bioengineered Tissue No -Bleeding Controlled with Pressure -Treatment Response Procedure Tolerated Well -Offloading No -Debridement - Open, 1st 20sq cm No 20-left lateral superior leg -Time 10:06 -Correct Patient Yes -Correct Side, Site, Position Yes -Correct Procedure Yes -Procedure Performed Yes -Type of Procedure Debridement -Clinical Debridement Epidermis / Dermis -Tissue Removed Epidermis, Dermis -Post Debridement (cm) - Length 1 -Post Debridement (cm) - Width 1 -Post Debridement (cm) - Depth 0.1 -Total Square (Post) (cm) 1 -Area of Debridement (cm) - Length 1.0 -Area of Debridement (cm) - Width 1.0 -Total Square (Area) (cm) 1.00 -Tunneling No -Undermining/Tunneling No -Circular Undermining No -Wound/Ulcer Outcome Not Healed -Ulcer Cleansing Rinsed/ Irrigated with Saline -Foul Odor after Cleansing No -Bioengineered Tissue No -Bleeding Controlled with Pressure -Treatment Response Procedure Tolerated Well -Offloading No -Debridement - Open, 1st 20sq cm Yes Pain Scale: 0-10 Numeric Is Patient Pain Free? Yes - Nurse 3 - General Ulcer D/C NN Start: 05/05/24 09:40 Freq: Status: Active Protocol: Activity Type Activity Date Activity User E-sign Co-sign Detail Recorded Client Recorded Date Recorded By Document 05/05/24 10:24 [facility] [id number] 05/05/24 10:24 [facility] 05/05/24 10:24 Wound Care Center Nurse 3 #21- L CALF -Ulcer Cleansing Rinsed/ Irrigated with Saline -Foul Odor after Cleansing No -Primary Dressing Applied NonAdherent Contact Layer -Other Dressing ABD -Primary Dressing Covered/Secured with Dry Gauze & Roll Gauze, Secured with Tape 20-left lateral superior leg -Ulcer Cleansing Rinsed/ Irrigated with Saline -Foul Odor after Cleansing No -Primary Dressing Applied NonAdherent Contact Layer -Other Dressing ABD -Primary Dressing Covered/Secured with Dry Gauze & Roll Gauze, Secured with Tape ble -Tubular Bandage Double Layer -Size of Tubigrip Used Size E -Size E ($) 2 Treatment Response Procedure Tolerated Well Pain Scale: 0-10 Numeric Is Patient Pain Free? Yes - Visit Discharge Discharge Condition Stable Ambulatory Status Ambulatory,Cane Transportation Private Auto Accompanied by DAUGHTER Assessment/Plan Assessment/Plan (1) Ulcer of left lower extremity, limited to breakdown of skin: CODE(S): L97.921 - 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 Wound care to the left leg ulcer cluster is adaptic topped with gauze or ABD daily after washing with soap and water. Compression - Double Tubigrip or [place] wraps bilateral legs. Wound culture obtained of left leg ulcer on 04/02/23 which was positive for Staphylococcus aureus, Corynebacterium striatum and Anaerobic cocci, he completed the Augmentin. A wound culture was obtained on 11/14/22 of the upper chest/anterior shoulder ulcers which was positive for Staphylococcus aureus, Kocuria kristinae and Gram positive faraz. He has completed the Doxycycline. Keep legs elevated when sitting. Encouraged to sleep in a bed, but he has slept in a recliner for 30 years. He continues to see Dermatology. His biopsy results showed Bullous pemphigoid. Dermatology placed him Dupixent. Dermatology biopsied his right forehead lesion showed squamous cell carcinoma, it was removed several weeks ago. There were a couple sutures that were missed last week when home health removed them. Removed those sutures today. He will place antibiotic ointment daily x 3 days and then can go back to the vasoline that he has been using. Follow up 4 weeks. Call or come in sooner if develop any concerns.
--- NOTE | 2024-05-08 09:18 | WC ---
PHOTO 05/05/2024 LEFT LATERAL LEG SUP
--- NOTE | 2024-05-08 09:19 | WC ---
PHOTO 05/05/2024 LEFT CALF
--- NOTE | 2024-05-08 09:20 | WC ---
PHOTO 05/05/2024 LEFT CALF
== END 2024-05-28 23:59 | disposition home or self-care (01) ==
LOC: WC 09:12
PROVIDERS: PCP Family Medicine; Referring Provider Nurse Practitioner Family; Visit Provider Nurse Practitioner Family
DX: L97.921 Non-pressure chronic ulcer of unspecified part of left lower leg limited to breakdown of skin (principal); L12.0 Bullous pemphigoid; I12.9 Hypertensive chronic kidney disease with stage 1 through stage 4 chronic kidney disease, or unspecified chronic kidney disease; R60.0 Localized edema; R54 Age-related physical debility; N18.2 Chronic kidney disease, stage 2 (mild); G47.33 Obstructive sleep apnea (adult) (pediatric); Z79.01 Long term (current) use of anticoagulants; Z86.711 Personal history of pulmonary embolism
CPT/HCPCS: 11042; 97597

== ENCOUNTER → 2024-05-07 | Outpatient (CLI) | payer MEDICARE, MEDICAID, SELFPAY ==
[2024-05-07 18:24] LABS: T4 Free Direct 0.74 ng/dL (0.76-1.46); Thyroid Stim Hormone (TSH) 4.98 uIU/mL (0.358-3.74)
== END | disposition home or self-care (01) ==
LOC: MFPLAB 15:29
PROVIDERS: PCP Family Medicine; Visit Provider Family Medicine
DX: E07.9 Disorder of thyroid, unspecified (principal)
CPT/HCPCS: 36415; 84439; 84443

== ENCOUNTER 2024-06-02 09:53 | Outpatient (RCR) | payer MEDICARE, MEDICAID, SELFPAY ==
[2024-05-29 00:21] VITALS: BP 127/80; PULSE 66; RESP 20; TEMP 36.4; BMI 40.6
[2024-06-02 09:48] VITALS: BP 136/58; PULSE 78; RESP 18; TEMP 37.2; BMI 40.6
--- NOTE | 2024-06-02 16:57 | PCM.WC.PN ---
History of Present Illness Date of Service: 06/02/24 Chief Complaint: Superficial ulcers to bilateral lower legs History of Wound: Patient is a 78 year old male who has multiple skin lesions scattered over his chest, arms, hands and abdomen and legs. The initial skin lesions started from a bed bugs which were causing him to scratch. He was hospitalized at the end of August for sepsis and cellulitis. He was discharged to [facility]. He has since been discharged home and has home health from [facility]. He does admit to picking at the scabbing. He has not been consistently putting anything on these areas. He is on Warfarin for history of PE, also has a history of HTN, CKD II, anemia, RAAD, bilateral leg edema and debility. He was evaluated by Dermatology. His biopsy results showed Bullous pemphigoid. Dermatology placed him on steroids oral and cream and started him on Dupixent. Wound culture was obtained on 04/02/23 of his left leg ulcer which was positive for Staphylococcus aureus, Corynebacterium striatum and Anaerobic cocci. He was started on Augmentin. Today he denies fever, chills, nausea, vomiting. Progress of Wound: He has been seeing Dermatology for treatment with Dupixent to help with his Bullous pemphigoid. He has a small ulcer cluster on left lateral leg and right anterior leg that are pink and superficial. The left posterior leg is healed. His edema is controlled with wearing the double tubigrips. 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 Objective Data Objective Data Vital Signs: Vital Signs Temp Pulse Resp BP O2 Del Method 98.9 F 78 18 136/58 H Room Air 06/02/24 09:48 06/02/24 09:48 06/02/24 09:48 06/02/24 09:48 06/02/24 09:48 Oxygen Delivery Method Room Air Weight: 300 lb Body Mass Index (BMI) 40.6 Charges/Coding Wound Center CF Procedures 96XXX-98XXX: 56342 RMVL DEVITAL TIS ADDL 20CM/< (01856 and 64723 x1) Multi Select Codes Wound Center CF Procedures 96XXX-98XXX: 49387 RMVL DEVITAL TIS ADDL 20CM/< (03128 and 82409 x1) Physical Exam Const alert, oriented x3 and no apparent distress General Appearance: cooperative and comfortable Orientation / Consciousness: awake HEENT normocephalic Head and Scalp: atraumatic Eyes General Eye: normal appearance of both eyes Neck full ROM Resp normal respiratory effort, normal air movement and clear to auscultation bilaterally Effort and Inspection: able to speak in complete sentences Cardio regular rate and regular rhythm Peripheral Pulses: dorsalis pedis pulses present GI normal to inspection, nondistended, normoactive bowel sounds, soft to palpation and non-tender Back/Spine normal ROM Extremity normal capillary refill Skin Wound Narrative: Left lateral leg and right anterior leg ulcers are pink and superficial. Right forehead incision is healing well. Neuro oriented x3 and moves all extremities Psych mental status grossly normal and thought process normal Appearance: appropriate Debridement Note Debridement Note Wound debrided: left lateral leg and right anterior leg Wound Grade/Stage: stage II Type of Debridement: Selective debridement Anesthesia Used: 5% Lidocaine Gel Depth: Down to and including healthy tissue Percentage of wound debrided: 100 Tissue Removed: Moist gauze used to debrided non viable tissue and slough Severity: Limited To Skin Breakdown Amount of bleeding with debridement: Mild Bleeding Controlled with: Compression and gauze Patient tolerated procedure: Patient tolerated procedure well Debridement Free Text: Used moistened gauze to lightly remove non viable tissue and slough Post-Debridement Measurements and Additional Note: Post-Debridement Measurements/Treatment - Nurse 1 - General Ulcer Assessment Start: 06/02/24 09:48 Freq: Status: Active Protocol: SIMON.[place] Activity Type Activity Date Activity User E-sign Co-sign Detail Recorded Client Recorded Date Recorded By Document 06/02/24 09:48 KW [email or web address] 06/02/24 09:59 KW 06/02/24 09:48 - Today's Visit Information Type of service Follow-up Visit (Physician/SLEEVE SEWER ) Arrival Mode Ambulatory,Cane Patient Identification Verified (Name & Yes ) Height and Weight Body Mass Index (BMI) 40.6 BMI Classification Obese Vital Signs Temperature (97.8 F-99.1 F) 98.9 F Temperature Source Temporal Pulse Rate (60-100) 78 Pulse Location Monitor Respiratory Rate (12-18) 18 Respiratory rate source Observation Oxygen Delivery Method Room Air Blood Pressure (90/60-120/80) 136/58 H Blood Pressure Mean (mm Hg) 84 Source Monitor Position Semi-Fowlers Blood Pressure Location Left Arm History Since Last Visit- (Skip if this is Patient's initial visit) Have you changed medications since your No last visit? Any new allergies or adverse reactions No Had a fall/change in ADL's that may No increase risk of falls Signs or symptoms of abuse and/or No neglect since last visit Have you been in the hospital since your No last visit? Has dressing in place as prescribed Yes Has compression in place as prescribed Yes Has offloadiing in place as prescribed N/A Experienced any changes in pain level or No management Left Footwear Regular Shoe Right Footwear Regular Shoe Pain Scale: 0-10 Numeric Is Patient Pain Free? Yes WC - Nurse 1 - General Ulcer Measurement Start: 06/02/24 09:48 Freq: Status: Active Protocol: Activity Type Activity Date Activity User E-sign Co-sign Detail Recorded Client Recorded Date Recorded By Document 06/02/24 09:48 KW fghj 06/02/24 09:59 KW 06/02/24 09:48 Wound Center Nurse 1 #22 RT FLANAGAN -Current Size (cm) - Length 0.1 -Current Size (cm) - Width 0.1 -Current Size (cm) - Depth 0.1 -Total Square Cm 0.01 -Date of Last Picture (Recall this 06/02/24 field) -Exudate Amt Small -Exudate Type Serosanguineous -Wound Margin Distinct, Outline Attached -Granulation Amt Large (67-100%) -Granulation Quality Red -Texture (Uyen-wound Skin Appearance) Assessed -Moisture (Uyen-wound Skin Appearance) Assessed -Color (Uyen-wound Skin Appearance) Assessed -Temperature (Uyen-wound Skin No Abnormality Appearance) (Pt Warm) -Tenderness on Palpation (Uyen-wound No Skin Appearance) -Ulcer Cleansing Rinsed/ Irrigated with Saline -Foul Odor after Cleansing No -Anesthetic Used 5% Lidocaine Gel 20-left lateral superior leg -Current Size (cm) - Length 0.1 -Current Size (cm) - Width 1 -Current Size (cm) - Depth 0.1 -Total Square Cm 0.1 -Date of Last Picture (Recall this 06/02/24 field) -Exudate Amt None Present -Wound Margin Distinct, Outline Attached -Granulation Quality [place],Red -Necrosis Amt Large (67-100%) -Texture (Uyen-wound Skin Appearance) Assessed -Moisture (Uyen-wound Skin Appearance) Assessed -Color (Uyen-wound Skin Appearance) Assessed -Temperature (Uyen-wound Skin No Abnormality Appearance) (Pt Warm) -Tenderness on Palpation (Uyen-wound No Skin Appearance) -Ulcer Cleansing Rinsed/ Irrigated with Saline -Anesthetic Used 5% Lidocaine Gel Right Calf (cm) 56 Right Ankle (cm) 28 Left Calf (cm) 53.5 Left Ankle (cm) 28 WC - Nurse 2 - General Ulcer CM Notes Start: 06/02/24 09:48 Freq: Status: Active Protocol: Activity Type Activity Date Activity User E-sign Co-sign Detail Recorded Client Recorded Date Recorded By Document 06/02/24 10:10 JF 0000 06/02/24 10:12 JF 06/02/24 10:10 Wound Center Nurse 2 #22 RT FLANAGAN -Time 10:11 -Correct Patient Yes -Correct Side, Site, Position Yes -Correct Procedure Yes -Procedure Performed Yes -Type of Procedure Debridement -Clinical Debridement Epidermis / Dermis -Tissue Removed Epidermis, Dermis -Post Debridement (cm) - Length 2 -Post Debridement (cm) - Width 2 -Post Debridement (cm) - Depth 0.1 -Total Square (Post) (cm) 4 -Area of Debridement (cm) - Length 2 -Area of Debridement (cm) - Width 2 -Total Square (Area) (cm) 4 -Tunneling No -Undermining/Tunneling No -Circular Undermining No -Wound/Ulcer Outcome Not Healed -Ulcer Cleansing Rinsed/ Irrigated with Saline -Foul Odor after Cleansing No -Bioengineered Tissue No -Bleeding Controlled with Pressure -Treatment Response Procedure Tolerated Well -Offloading No -Debridement - Open, 1st 20sq cm No 20-left lateral superior leg -Time 10:12 -Correct Patient Yes -Correct Side, Site, Position Yes -Correct Procedure Yes -Procedure Performed Yes -Type of Procedure Debridement -Clinical Debridement Epidermis / Dermis -Tissue Removed Epidermis, Dermis -Post Debridement (cm) - Length 8 -Post Debridement (cm) - Width 3.5 -Post Debridement (cm) - Depth 0.1 -Total Square (Post) (cm) 28.0 -Area of Debridement (cm) - Length 8 -Area of Debridement (cm) - Width 3.5 -Total Square (Area) (cm) 28.0 -Tunneling No -Undermining/Tunneling No -Circular Undermining No -Wound/Ulcer Outcome Not Healed -Ulcer Cleansing Rinsed/ Irrigated with Saline -Foul Odor after Cleansing No -Bioengineered Tissue No -Bleeding Controlled with Pressure -Treatment Response Procedure Tolerated Well -Offloading No -Debridement - Open, 1st 20sq cm Yes -Debridement, Open, ea addt'l 20sq cm 1 or part thereof Pain Scale: 0-10 Numeric Is Patient Pain Free? Yes WC - Nurse 3 - General Ulcer D/C NN Start: 06/02/24 09:48 Freq: Status: Active Protocol: Activity Type Activity Date Activity User E-sign Co-sign Detail Recorded Client Recorded Date Recorded By Document 06/02/24 10:24 DL [id number] 06/02/24 10:26 DL 06/02/24 10:24 Wound Care Center Nurse 3 #22 RT FLANAGAN -Ulcer Cleansing Rinsed/ Irrigated with Saline -Foul Odor after Cleansing No -Primary Dressing Applied NonAdherent Contact Layer -Primary Dressing Covered/Secured with Dry Gauze, Secured with Tape 20-left lateral superior leg -Ulcer Cleansing Rinsed/ Irrigated with Saline -Foul Odor after Cleansing No -Primary Dressing Applied NonAdherent Contact Layer -Primary Dressing Covered/Secured with Dry Gauze, Secured with Tape ble -Tubular Bandage Single Layer -Size of Tubigrip Used Size F -Size F ($) 1 Treatment Response Procedure Tolerated Well Pain Scale: 0-10 Numeric Is Patient Pain Free? 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 Wound care to the left leg ulcer and right anterior leg is adaptic topped with gauze or ABD daily after washing with soap and water. Compression - Double Tubigrip or Farrow wraps bilateral legs. Wound culture obtained of left leg ulcer on 04/02/23 which was positive for Staphylococcus aureus, Corynebacterium striatum and Anaerobic cocci, he completed the Augmentin. A wound culture was obtained on 11/14/22 of the upper chest/anterior shoulder ulcers which was positive for Staphylococcus aureus, Kocuria kristinae and Gram positive faraz. He has completed the Doxycycline. Keep legs elevated when sitting. He continues to see Dermatology. His biopsy results showed Bullous pemphigoid. Dermatology placed him Dupixent. Dermatology biopsied his right forehead lesion showed squamous cell carcinoma, it was removed. Massage with lotion daily to help soften scarring. Follow up 4 weeks. Call or come in sooner if develop any concerns.
--- NOTE | 2024-06-03 09:30 | WC ---
PHOTO 06/02/24 LEFT LATERAL LEG
--- NOTE | 2024-06-03 09:32 | WC ---
PHOTO RIGHT FLANAGAN 06/02/24
== END 2024-06-28 23:59 | disposition home or self-care (01) ==
LOC: WC 09:53
PROVIDERS: PCP Family Medicine; Referring Provider Nurse Practitioner Family; Visit Provider Nurse Practitioner Family
DX: L97.921 Non-pressure chronic ulcer of unspecified part of left lower leg limited to breakdown of skin (principal); L12.0 Bullous pemphigoid; C44.329 Squamous cell carcinoma of skin of other parts of face; R54 Age-related physical debility; R60.0 Localized edema; I12.9 Hypertensive chronic kidney disease with stage 1 through stage 4 chronic kidney disease, or unspecified chronic kidney disease; N18.2 Chronic kidney disease, stage 2 (mild); G47.33 Obstructive sleep apnea (adult) (pediatric); Z79.01 Long term (current) use of anticoagulants; Z86.711 Personal history of pulmonary embolism
CPT/HCPCS: 97597; 97598

== ENCOUNTER 2024-07-07 09:21 | Outpatient (RCR) | payer MEDICARE, MEDICAID, SELFPAY ==
[2024-06-29 00:42] VITALS: BP 127/80; PULSE 66; RESP 20; TEMP 36.4; BMI 40.6
[2024-07-07 09:22] VITALS: BP 122/62; PULSE 59; RESP 18; TEMP 35.8; BMI 40.6
--- NOTE | 2024-07-07 10:29 | PCM.WC.PN ---
History of Present Illness Date of Service: 07/07/24 Chief Complaint: Superficial ulcers to bilateral lower legs History of Wound: Patient is a 78 year old male who has multiple skin lesions scattered over his chest, arms, hands and abdomen and legs. The initial skin lesions started from a bed bugs which were causing him to scratch. He was hospitalized at the end of August for sepsis and cellulitis. He was discharged to [facility]. He has since been discharged home and has home health from [facility]. He does admit to picking at the scabbing. He has not been consistently putting anything on these areas. He is on Warfarin for history of PE, also has a history of HTN, CKD II, anemia, RAAD, bilateral leg edema and debility. He was evaluated by Dermatology. His biopsy results showed Bullous pemphigoid. Dermatology placed him on steroids oral and cream and started him on Dupixent. Wound culture was obtained on 04/02/23 of his left leg ulcer which was positive for Staphylococcus aureus, Corynebacterium striatum and Anaerobic cocci. He was started on Augmentin. Today he denies fever, chills, nausea, vomiting. Progress of Wound: He has been seeing Dermatology for treatment with Dupixent to help with his Bullous pemphigoid. The ulcer cluster on left lateral leg and right anterior leg that he had are healed. He has a new blister on right knee. His edema is controlled with wearing the double tubigrips. His left forehead squamous cell carcinoma is healed. He continues to get an occasional outbreak from his Bullous pemphigoid. His daughter does a good job with the wound care when he has a new wound. He states that he does not think that they need to come here any longer, since they know how to handle these wounds when they occur. Objective Data Objective Data Vital Signs: Vital Signs Temp Pulse Resp BP O2 Del Method 96.4 F L 59 L 18 122/62 H Room Air 07/07/24 09:22 07/07/24 09:22 07/07/24 09:22 07/07/24 09:22 07/07/24 09:22 Oxygen Delivery Method Room Air Weight: 300 lb Body Mass Index (BMI) 40.6 Charges/Coding Wound Center CF Procedures [id number]: 95765 RMVL DEVITAL TIS 20 CM/< Multi Select Codes Wound Center CF Procedures [id number]: [id number] RMVL DEVITAL TIS 20 CM/< Physical Exam Const alert, oriented x3 and no apparent distress General Appearance: cooperative and comfortable Orientation / Consciousness: awake HEENT normocephalic Head and Scalp: atraumatic Eyes General Eye: normal appearance of both eyes Neck full ROM Resp normal respiratory effort, normal air movement and clear to auscultation bilaterally Effort and Inspection: able to speak in complete sentences Cardio regular rate and regular rhythm Peripheral Pulses: dorsalis pedis pulses present GI normal to inspection, nondistended, normoactive bowel sounds, soft to palpation and non-tender Back/Spine normal ROM Extremity normal capillary refill Skin Wound Narrative: Right knee ulcer is beefy pink and superficial. Neuro oriented x3 and moves all extremities Psych mental status grossly normal and thought process normal Appearance: appropriate Debridement Note Debridement Note Wound debrided: right knee Wound Grade/Stage: StageII Type of Debridement: Selective debridement Anesthesia Used: 5% Lidocaine Gel Depth: Down to and including healthy tissue and in the subcutaneous layer Percentage of wound debrided: 100 Instrument Used: - (moistened gauze) Tissue Removed: Non viable tissue and slough Severity: Limited To Skin Breakdown Amount of bleeding with debridement: Mild Bleeding Controlled with: Pressure and Compression and gauze Patient tolerated procedure: Patient tolerated procedure well Post-Debridement Measurements and Additional Note: Post-Debridement Measurements/Treatment - Nurse 1 - General Ulcer Assessment Start: 07/07/24 09:22 Freq: Status: Active Protocol: [email or web address].ZULEMA Activity Type Activity Date Activity User E-sign Co-sign Detail Recorded Client Recorded Date Recorded By Document 07/07/24 09:22 KW [id number] 07/07/24 09:29 KW Edit Result 07/07/24 09:22 KW (1) [id number] 07/07/24 09:31 KW (1) Pulse Rate (60-100) => 59 L Blood Pressure (90/60-120/80) => 122/62 H Blood Pressure Mean (mm Hg) => 82 07/07/24 09:22 - Today's Visit Information Type of service Follow-up Visit (Physician/FUR [facility]ANER [facility] ) Arrival Mode Ambulatory,Cane Accompanied by DAUGHTER Patient Identification Verified (Name & Yes ) Height and Weight Body Mass Index (BMI) 40.6 BMI Classification Obese Vital Signs Temperature (97.8 F-99.1 F) 96.4 F L Temperature Source Temporal Pulse Rate (60-100) 59 L Pulse Location Monitor Respiratory Rate (12-18) 18 Respiratory rate source Observation Oxygen Delivery Method Room Air Blood Pressure (90/60-120/80) 122/62 H Blood Pressure Mean (mm Hg) 82 Source Monitor Position Semi-Fowlers Blood Pressure Location Left Arm History Since Last Visit- (Skip if this is Patient's initial visit) Have you changed medications since your No last visit? Any new allergies or adverse reactions No Had a fall/change in ADL's that may No increase risk of falls Signs or symptoms of abuse and/or No neglect since last visit Have you been in the hospital since your No last visit? Has dressing in place as prescribed Yes Has compression in place as prescribed Yes Has offloadiing in place as prescribed N/A Experienced any changes in pain level or No management Left Footwear Regular Shoe Right Footwear Regular Shoe Pain Scale: 0-10 Numeric Is Patient Pain Free? Yes - Nurse 1 - General Ulcer Measurement Start: 07/07/24 09:22 Freq: Status: Active Protocol: Activity Type Activity Date Activity User E-sign Co-sign Detail Recorded Client Recorded Date Recorded By Document 07/07/24 09:22 JORGE [id number] 07/07/24 09:29 JORGE 07/07/24 09:22 Wound Center Nurse 1 #22 RT FLANAGAN -Current Size (cm) - Length 0 -Current Size (cm) - Width 0 -Current Size (cm) - Depth 0 -Total Square Cm 0 20-left lateral superior leg -Current Size (cm) - Length 0 -Current Size (cm) - Width 0 -Current Size (cm) - Depth 0 -Total Square Cm 0 Right Calf (cm) 51.5 Right Ankle (cm) 28.7 Left Calf (cm) 49 Left Ankle (cm) 29.7 - Nurse 2 - General Ulcer CM Notes Start: 07/07/24 09:22 Freq: Status: Active Protocol: Activity Type Activity Date Activity User E-sign Co-sign Detail Recorded Client Recorded Date Recorded By Document 07/07/24 10:06 JAYESH [id number] 07/07/24 10:08 JAYESH 07/07/24 10:06 Wound Center Nurse 2 RIGHT KNEE -Time 10:07 -Correct Patient Yes -Correct Side, Site, Position Yes -Correct Procedure Yes -Procedure Performed Yes -Type of Procedure Debridement -Clinical Debridement Epidermis / Dermis -Tissue Removed Epidermis, Dermis -Post Debridement (cm) - Length 0.1 -Post Debridement (cm) - Width 0.1 -Post Debridement (cm) - Depth 0.1 -Total Square (Post) (cm) 0.01 -Area of Debridement (cm) - Length 0.1 -Area of Debridement (cm) - Width 0.1 -Total Square (Area) (cm) 0.01 -Tunneling No -Undermining/Tunneling No -Circular Undermining No -Wound/Ulcer Outcome Not Healed -Ulcer Cleansing Rinsed/ Irrigated with Saline -Foul Odor after Cleansing No -Bioengineered Tissue No -Bleeding Controlled with Pressure -Treatment Response Procedure Tolerated Well -Offloading No -Debridement - Open, 1st 20sq cm Yes Pain Scale: 0-10 Numeric Is Patient Pain Free? 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 He and his daughter feel comfortable with managing his wound care when he has an out break from his Bullous pemphigoid. Wound care to right knee is adaptic topped with gauze or ABD daily after washing with soap and water. Compression - Double Tubigrip or Farrow wraps bilateral legs. Wound culture obtained of left leg ulcer on 04/02/23 which was positive for Staphylococcus aureus, Corynebacterium striatum and Anaerobic cocci, he completed the Augmentin. A wound culture was obtained on 11/14/22 of the upper chest/anterior shoulder ulcers which was positive for Staphylococcus aureus, Kocuria kristinae and Gram positive faraz. He has completed the Doxycycline. Keep legs elevated when sitting. He continues to see Dermatology. His biopsy results showed Bullous pemphigoid. Dermatology placed him Dupixent weekly, which has improved his skin condition.. Dermatology biopsied his right forehead lesion showed squamous cell carcinoma, it was removed. Massage with lotion daily to help soften scarring. He would like to be discharged at this time from the wound healing center. He and his daughter feel comfortable enough with his wound care when he has an out break. His outbreaks have really decreased since the increase in the dose of his Dupixent. Follow up as needed. Call or come back in if he develops a wound they are not able to heal.
--- NOTE | 2024-07-08 08:32 | WC ---
PHOTO 07/07/24 RIGHT FLANAGAN
--- NOTE | 2024-07-08 08:33 | WC ---
PHOTO 07/07/24 RIGHT KNEE
== END 2024-07-28 23:59 | disposition home or self-care (01) ==
LOC: WC 09:21
PROVIDERS: PCP Family Medicine; Referring Provider Nurse Practitioner Family; Visit Provider Nurse Practitioner Family
DX: L97.921 Non-pressure chronic ulcer of unspecified part of left lower leg limited to breakdown of skin (principal); L12.0 Bullous pemphigoid; R60.0 Localized edema; R54 Age-related physical debility; I12.9 Hypertensive chronic kidney disease with stage 1 through stage 4 chronic kidney disease, or unspecified chronic kidney disease; N18.2 Chronic kidney disease, stage 2 (mild); G47.33 Obstructive sleep apnea (adult) (pediatric); Z79.01 Long term (current) use of anticoagulants; Z86.711 Personal history of pulmonary embolism
CPT/HCPCS: 97597

== ENCOUNTER → 2024-07-28 | Outpatient (CLI) | payer MEDICARE, MEDICAID, SELFPAY ==
[2024-07-28 11:05] LABS: Potassium 3.7 mmol/L (3.5-5.1); T4 Free Direct 0.88 ng/dL (0.76-1.46)
== END | disposition home or self-care (01) ==
LOC: MFPLAB 09:00
PROVIDERS: PCP Family Medicine; Referring Provider Family Medicine; Visit Provider Family Medicine
DX: E07.9 Disorder of thyroid, unspecified (principal)
CPT/HCPCS: 36415; 84132; 84439; 84443

== ENCOUNTER → 2025-05-20 | Outpatient (CLI) | payer MEDICARE, MEDICAID, SELFPAY | END | disposition home or self-care (01) | LOC: MFPLAB 09:18 | PROVIDERS: PCP Family Medicine; Referring Provider Family Medicine; Visit Provider Family Medicine | DX: E03.8 Other specified hypothyroidism (principal) | CPT/HCPCS: 36415; 84443 ==